=== PATIENT | male | born 1960 | race African-American/Black ===

== ENCOUNTER 2016-10-17 20:52 | Emergency (ER) | payer OTHER ==
[~2016-10-17 20:52] MED LIST: AMLO25TA PO; BUPR150T5 PO; DIAZ5TAB PO; DILT240C5 PO; KETO10TAB PO; LISI40TAB PO; METH-107 PO; OXYCO5TA PO; REGL10TA6 PO; SERT-141 PO; SIMV40TA2 PO; TRAZ50TA4 PO; VICODIN PO; [UNRECOGNIZED DRUG - CODE] PO
[2016-10-17] MEDS ORDERED: HYDROmorphone HCL 1 MG/ML SYRINGE (J1170) As Ordered ONE (22:04)
[2016-10-17 23:30] LABS: BASO # 0.1 K/mm3 (0.0-0.2); BASO % 1.2 % (0.0-1.0); EOS # 0.4 K/mm3 (0.0-0.50); EOS % 3.7 % (0.0-3.0); LARGE UNSTAINED CELL # 0.1 K/mm3 (0.0-0.4); LARGE UNSTAINED CELL % 1.2 % (0.0-4.0); LYMPH # 5.3 K/mm3 (1.5-4.5); LYMPH % 48.7 % (24.0-44.0); MEAN CORPUSCULAR HEMOGLOBIN 28.5 pg (27.0-33.0); MEAN CORPUSCULAR HGB CONC 33.1 g/dl (32.0-36.5); MEAN CORPUSCULAR VOLUME 86.1 fl (80.0-96.0); MONO # 0.6 K/mm3 (0.0-0.8); MONO % 6.1 % (0.0-5.0); NEUTROPHILS # 4.1 K/mm3 (1.8-7.7); NEUTROPHILS % 39.1 % (36.0-66.0); PLATELET COUNT, AUTOMATED 268 k/mm3 (150-450)
[2016-10-17 23:33] LABS: WHITE BLOOD COUNT 10.6 K/mm3 (4.0-10.0)
[2016-10-18 00:23] LABS: ANION GAP 6 MEQ/L (8-16); BLOOD UREA NITROGEN 15 MG/DL (7-18); CALCIUM LEVEL 8.4 MG/DL (8.5-10.1); CARBON DIOXIDE LEVEL 32 MEQ/L (21-32); CHLORIDE LEVEL 101 MEQ/L (98-107); CREATININE FOR GFR 1.28 MG/DL (0.70-1.30); GLOMERULAR FILTRATION RATE > 60.0 (>56); GLUCOSE, FASTING 103 MG/DL (70-105); POTASSIUM SERUM 3.4 MEQ/L (3.5-5.1); SODIUM LEVEL 139 MEQ/L (136-145)
[2016-10-18] MEDS ORDERED: ISOVUE-370 76% 100ML VIAL (Q9967) As Ordered ONE (00:59)
--- NOTE | 2016-10-18 02:40 | REPUSA ---
CLINICAL HISTORY: Suspected aortic dissection. TECHNIQUE: Multiple axial CT images were obtained through chest with IV contrast material. MPR mckeon l and sagittal sequences were obtained. COMMENTS: Limited evaluation of the pulmonary artery and its branches due to the phase of the contrast. Unremarkable aorta without evidence of aortic dissection. No aortic aneurysm is seen. There is no evidence of pleural or parenchymal mass. There are no pleural effusions. There is no evid ence of hilar or mediastinal lymphadenopathy. The heart and great vessels are within normal limits. Minimal basilar atelectatic pulmonary changes. The visualized portions of the liver are of uniform attenuation without mass or defect. There is no i ntra or extrahepatic biliary ductal dilatation. The spleen is unremarkable. The visualized pancreas i s of normal contour and attenuation characteristics. There is no evidence of adrenal mass. The visual ized portions of the kidneys present no acute abnormalities. Right renal simple cyst. The bony structures are free of lytic or blastic lesions. Multilevel degenerative changes are seen in volving the thoracic spine. Scattered calcifications are seen involving the aorta and visualized abdi r branches compatible with atherosclerosis. No evidence for abnormal enhancement. IMPRESSION: No evidence of acute thoracic pathology. Thank you for your kind referral of this patient.
[2016-10-18] MEDS ORDERED: HYDROmorphone HCL 1 MG/ML SYRINGE (J1170) As Ordered ONE (02:49)
[2016-10-18] MEDS ORDERED: NORCO 5/325MG TABLET (BULK) As Ordered ONE (03:05)
--- NOTE | 2016-10-18 03:22 | EDDOCDS ---
Nurse's Notes [facility] Name: Edin Machado Age: 56 yrs Sex: Male : 1960 Arrival Date: 10/17/2016 Time: 20:52 Bed I1 / M1 Private MD: Jordan Dos Santos Diagnosis: Low back pain;Pain in left shoulder Presentation: 10/17 21:01 Presenting complaint: Patient states: Is scheduled for back surgery on --is mcp having excruciating back pain today, is weak. Acute neurological deficits are not present. Mechanism of Injury: No Mechanism of Injury. Adult Sepsis Screening: The patient does not have new or worsening altered mentation. Patient's respiratory rate is less than 22. Systolic blood pressure is greater than 100. Patient has a qSOFA score of 0- Negative Sepsis Screen. Suicide/Homicide risk assessment- the patient denies having any suicidal and/or homicidal ideations and does not present with any other emotional, behavioral or mental health complaints. 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 Transition of care: patient was not received from another setting of care. 21:01 Acuity: NEVIN Level 4 [facility] 21:01 Method Of Arrival: Wheelchair [facility] Triage Assessment: 21:07 General: Appears uncomfortable, Behavior is cooperative. Pain: Location: back, left arm mcp and neck Pain currently is 10 out of 10 on a pain scale. HIV screening NA for this visit Offered previously. Neurological: No deficits noted. Respiratory: Airway is patent Respiratory effort is even, unlabored. Derm: Skin is pink, warm & dry. Musculoskeletal: Circulation, motion, and sensation intact. Historical: - Allergies: Motrinfever; - Home Meds: 1. Percocet 5-325 mg Oral tab 2 tabs every 4-6 hours (Last dose: 10/17/2016 17:00) 2. Valium 10 mg Oral tab 1 tab 3 times per day 3. prednisone 20 mg Oral tab 3 tab once daily 4. Cardizem 240 mg Oral 1 tab daily 5. lisinopril 40 mg Oral tab 1 tab once daily 6. lithium carbonate 300 mg Oral cap daily 7. simvastatin 40 mg Oral tab 1 tab once daily 8. Wellbutrin XL 300 mg Oral Tb24 1 tab once daily 9. Zoloft 100 mg Oral tab 1 tab once daily - PMHx: CAD; Chronic Back pain; Depression; Hypertension; infection to buttocks; Kidney stones; - PSHx: kidney stone removal X 3; Appendectomy; surgery for wound infection; - Social history: Smoking status: Patient states was never smoker of tobacco. No barriers to communication noted, The patient speaks fluent Telugu. - Family history: Not pertinent. - : The pt / caregiver states he / she is not on anticoagulants. Home medication list is obtained from the patient. - Exposure Risk Screening:: None identified. Screenin:27 Screening information is obtained from the patient. Fall risk: No risks identified. kmg1 uses a cane. Assistance ADL's: requires no assistance with activities of daily living. Abuse/DV Screen: The patient / caregiver reports he/she is: not in a situation that causes fear, pain or injury. Nutritional screening: No deficits noted. home support is adequate. 10/18 03:10 Advance Directives: There is no active DNR order. km Assessment: 10/17 23:25 General: Appears in no apparent distress, comfortable, Behavior is appropriate for age, kmg1 cooperative, quiet. Pain: Location: posterior cervical area, right trapezius, left supraclavicular area and left clavicle Pain currently is 8 out of 10 on a pain scale. Cardiovascular: Capillary refill < 3 seconds Rhythm is regular Chest pain is located in right anterior chest wall. Respiratory: Airway is patent Respiratory effort is even, unlabored, Respiratory pattern is regular, symmetrical, Breath sounds are clear bilaterally. Musculoskeletal: Denies pain, right shoulder. 10/18 00:45 General: Appears in no apparent distress, comfortable, Behavior is appropriate for age, kmg1 cooperative, pleasant, Resting quietly on stretcher. Pain: Pain currently is 6 out of 10 on a pain scale. 01:45 Reassessment: Patient appears in no apparent distress at this time. No change in kmg1 assessment. Awaiting CT results. 02:44 General: Appears in no apparent distress, comfortable, Behavior is appropriate for age, kmg1 Patient concerned about wait and was confused about why we CTd his chest. Explained exam and reasons for exam to patient who verbalized a better understanding . 03:10 Reassessment: Patient appears in no apparent distress at this time. Patient states kmg1 feeling better. Patient states symptoms have improved. Vital Signs: 10/17 20:54 BP 162 / 86; Pulse 80; Resp 18 S; Temp 95.9(O); Pulse Ox 98% on R/A; Weight 115.67 kg gr2 (R); Height 5 ft. 10 in. (177.80 cm) (R); Pain 9/10; 22:16 Pain 10/10; jf3 23:07 BP 172 / 105 (man/); Pulse 78; Resp 18; Temp 97.8(O); Pulse Ox 97% on R/A; Pain 8/10; cp1 10/18 00:26 BP 145 / 82 LA Supine (auto/reg); cln 03:04 BP 139 / 98 RA Sitting (auto/reg); Pulse 73 MON; Resp 22 S; Temp 98.3(T); Pulse Ox 96% cln on R/A; Pain 0/10; 10/17 20:54 Body Mass Index 36.59 (115.67 kg, 177.80 cm) gr2 Vitals: 10/17 20:54 Log In Time: October 17, 2016 at 20:54. gr2 ED Course: 20:54 Patient visited by Kevin Wilson. gr2 20:54 Jordan Dos Santos is Private Physician. gr2 20:54 Patient moved to Waiting gr2 20:55 Patient visited by Kevin Wilson. gr2 20:55 Patient moved to Pre RCE gr2 21:05 Triage Initiated mcp 21:07 Patient visited by Jammie Liao RN. mcp 21:39 Patient moved to Triage 3 jf3 21:41 [facility] ar2 21:41 Tommy Damian DO is Attending Physician. ar2 21:47 Patient visited by Steven Costa PA-C. ar2 22:06 Patient moved to I1 / M1 cz 22:52 Marcus Barry is Referral Physician. ar2 22:52 Jordan Dos Santos is Referral Physician. ar2 23:07 Patient visited by Precious Haney LPN. cp1 23:18 Patient visited by Estefany Lamb, MIRTA. cln 23:18 EKG done. (by ED staff). Reviewed by Steven Costa PA-C. cln 23:25 D-Dimer Quant Sent. kmg1 23:25 CIP Sent. kmg1 23:25 Troponin Sent. kmg1 23:25 CBC with Diff Sent. kmg1 23:25 MED Profile Sent. kmg1 23:27 Inserted saline lock: 18 gauge in right antecubital area. Labs drawn. (by ED staff). kmg1 Sent per order to lab. 23:28 Patient visited by Shantell Hassan RN. kmg1 23:53 [facility] Payment Agreement was scanned into [employer] and attached to record. ks16 10/18 00:26 Patient visited by Estefany Lamb PCA. cln 00:54 PHCP role handed off by Steven Costa PA-C cc10 00:54 Pavel Kent PA-C is PHCP. cc10 01:59 Patient visited by Precious Haney LPN. cp1 02:47 CT Chest With Contrast Returned. EDMS 02:58 Marcus Barry is Referral Physician. cc10 03:07 Patient visited by Estefany Lamb PCA. cln 03:10 The patient / caregiver is instructed regarding the plan of care and ED course. kmg1 03:10 Discontinued lock bleeding controlled, pressure dressing applied, No redness/swelling kmg1 at site. No procedures done that require assistance. Administered Medications: 10/17 22:10 Drug: Dilaudid - HYDROmorphone 1 mg [hydromorphone 1 mg/mL injection syringe (1 mL)] jf3 Route: IM; Site: right gluteus; 10/18 03:00 Drug: Dilaudid - HYDROmorphone 1 mg [hydromorphone 1 mg/mL injection syringe (1 mL)] kmg1 Route: IVP; Site: right antecubital; 03:12 Drug: HYDROcodone-acetaminophen 4 pack- 1 packets [hydrocodone 5 mg-acetaminophen 325 kmg1 mg tablet (1 tabs)] {Co-Signature: isabel (Temi Samuel RN).} Route: PO; Order Results: Lab Order: CBC with Diff; SPEC'M 10/17/16 23:22 Test: WHITE BLOOD COUNT; Value: 10.6; Range: 4.0-10.0; Abnormal: Above high normal; Units: K/mm3; Status: F Test: RED BLOOD COUNT; Value: 4.63; Range: 4.30-6.10; Units: M/mm3; Status: F Test: HEMOGLOBIN; Value: 13.2; Range: 14.0-18.0; Abnormal: Below low normal; Units: g/dl; Status: F Test: HEMATOCRIT; Value: 39.8; Range: 42.0-52.0; Abnormal: Below low normal; Units: %; Status: F Test: MEAN CORPUSCULAR VOLUME; Value: 86.1; Range: 80.0-96.0; Units: fl; Status: F Test: MEAN CORPUSCULAR HEMOGLOBIN; Value: 28.5; Range: 27.0-33.0; Units: pg; Status: F Test: MEAN CORPUSCULAR HGB CONC; Value: 33.1; Range: 32.0-36.5; Units: g/dl; Status: F Test: RED CELL DISTRIBUTION WIDTH; Value: 14.0; Range: 11.5-14.5; Units: %; Status: F Test: PLATELET COUNT, AUTOMATED; Value: 268; Range: 150-450; Units: k/mm3; Status: F Test: NEUTROPHILS %; Value: 39.1; Range: 36.0-66.0; Units: %; Status: F Test: LYMPH %; Value: 48.7; Range: 24.0-44.0; Abnormal: Above high normal; Units: %; Status: F Test: MONO %; Value: 6.1; Range: 0.0-5.0; Abnormal: Above high normal; Units: %; Status: F Test: EOS %; Value: 3.7; Range: 0.0-3.0; Abnormal: Above high normal; Units: %; Status: F Test: BASO %; Value: 1.2; Range: 0.0-1.0; Abnormal: Above high normal; Units: %; Status: F Test: LARGE UNSTAINED CELL %; Value: 1.2; Range: 0.0-4.0; Units: %; Status: F Test: NEUTROPHILS #; Value: 4.1; Range: 1.8-7.7; Units: K/mm3; Status: F Test: LYMPH #; Value: 5.3; Range: 1.5-4.5; Abnormal: Above high normal; Units: K/mm3; Status: F Test: MONO #; Value: 0.6; Range: 0.0-0.8; Units: K/mm3; Status: F Test: EOS #; Value: 0.4; Range: 0.0-0.50; Units: K/mm3; Status: F Test: BASO #; Value: 0.1; Range: 0.0-0.2; Units: K/mm3; Status: F Test: LARGE UNSTAINED CELL #; Value: 0.1; Range: 0.0-0.4; Units: K/mm3; Status: F Test Note: ; A Pathologist review of this differential can help in the evaluation of a differential diagnosis. Please order a Pathologist Review (PATHREVCOMP) if deemed necessary. Results are subject to change if a Pathologist Review is performed. Lab Order: MED Profile; SPEC'M 10/17/16 23:51 Test: GLUCOSE, FASTING; Value: 103; Range: 70-105; Units: MG/DL; Status: F Test: BLOOD UREA NITROGEN; Value: 15; Range: 7-18; Units: MG/DL; Status: F Test: CREATININE FOR GFR; Value: 1.28; Range: 0.70-1.30; Units: MG/DL; Status: F Test: GLOMERULAR FILTRATION RATE; Value: > 60.0; Range: >56; Status: F Test: SODIUM LEVEL; Value: 139; Range: 136-145; Units: MEQ/L; Status: F Test: POTASSIUM SERUM; Value: 3.4; Range: 3.5-5.1; Abnormal: Below low normal; Units: MEQ/L; Status: F Test: CHLORIDE LEVEL; Value: 101; Range: 98-107; Units: MEQ/L; Status: F Test: CARBON DIOXIDE LEVEL; Value: 32; Range: 21-32; Units: MEQ/L; Status: F Test: ANION GAP; Value: 6; Range: 8-16; Abnormal: Below low normal; Units: MEQ/L; Status: F Test: CALCIUM LEVEL; Value: 8.4; Range: 8.5-10.1; Abnormal: Below low normal; Units: MG/DL; Status: F Test Note: ; Units are mL/min/1.73 m2 Chronic Kidney Disease Staging per NKF: Stage I & II GFR >=60 Normal to Mildly Decreased Stage III GFR 30-59 Moderately Decreased Stage IV GFR 15-29 Severely Decreased Stage V GFR <15 Very Little GFR Left ESRD GFR <15 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 0.10-1.50 ng/ml Increased Risk for Adverse Clinical Events. Evaluation of additional criterion and/or repeat testing in 2-6 hours is suggested to rule out myocardial damage. >= 1.50 ng/ml Indicative of Myocardial Injury. Lab Order: CIP; SPEC'M 10/17/16 23:51 Test: CPK CREATINE PHOSPHOKINASE; Value: 171; Range: 39-308; Units: U/L; Status: F Test: CK-MB VALUE MASS; Value: 1.0; Range: 0.0-3.6; Units: NG/ML; Status: F Test: MB/CK RELATIVE INDEX; Value: 0.58; Range: < OR =4; Status: F Test Note: ; DIAGNOSIS CRITERIA MMB ng/ml Relative Index (RI) NON-AMI < or = 5 N/A CRAWFORD ZONE > 5 < or = 4 AMI > 5 > 4 Lab Order: D-Dimer Quant; SPEC'M 10/17/16 23:51 Test: D-DIMER QUANT; Value: < 270.0; Range: <500; Units: ng/ml; Status: F Radiology Order: CT Chest With Contrast Test: CT Chest With Contrast REASON FOR EXAMINATION: r/o dissection; ; CLINICAL HISTORY: Suspected aortic dissection.; TECHNIQUE: Multiple axial CT images were obtained through chest with IV contrast material. MPR mckeon; l and sagittal sequences were obtained.; COMMENTS:; Limited evaluation of the pulmonary artery and its branches due to the phase of the contrast.; Unremarkable aorta without evidence of aortic dissection.; No aortic aneurysm is seen.; There is no evidence of pleural or parenchymal mass. There are no pleural effusions. There is no evid; ence of hilar or mediastinal lymphadenopathy. The heart and great vessels are within normal limits.; Minimal basilar atelectatic pulmonary changes.; The visualized portions of the liver are of uniform attenuation without mass or defect. There is no i; ntra or extrahepatic biliary ductal dilatation. The spleen is unremarkable. The visualized pancreas i; s of normal contour and attenuation characteristics. There is no evidence of adrenal mass. The visual; ized portions of the kidneys present no acute abnormalities.; Right renal simple cyst.; The bony structures are free of lytic or blastic lesions. Multilevel degenerative changes are seen in; volving the thoracic spine. Scattered calcifications are seen involving the aorta and visualized abdi; r branches compatible with atherosclerosis.; No evidence for abnormal enhancement.; IMPRESSION:; No evidence of acute thoracic pathology.; Thank you for your kind referral of this patient.; ; ; Outcome: 10/17 22:53 Discharge ordered by Provider. ar2 10/18 02:58 Discharge ordered by Provider. cc10 03:10 Discharge Assessment: Patient awake, alert and oriented x 3. No cognitive and/or kmg1 functional deficits noted. Patient verbalized understanding of disposition instructions. Patient awake and alert. patient administered narcotics - yes. Pt provided with safe discharge. The following High Risk Discharge criteria are identified: None. Discharged to home ambulatory, with family. Condition: improved. Discharge instructions given to patient, Instructed on discharge instructions, follow up and referral plans. medication usage, Demonstrated understanding of instructions, medications, Pt was receptive of discharge instructions/ teaching. Prescriptions given X 1. CT Study completed. Property sent home with patient. 03:22 Patient left the ED. [facility] Signatures: Dispatcher [employer] EDMS Shantell Hassan RN RN kmg1 Jammie Liao RN RN mcp Zecher, Calvin, RN RN cz Robertshaw, Aaron, PA-C PA-C ar2 Precious Haney LPN LPN cp1 Kevin Wilson gr2 Paevl Kent PA-C PA-C cc10 James Mendez RN RN jf3 Aure Edwards, Reg Reg ks16 Estefany Lamb, VICE PRESIDENT CORPORATE COMMUNICATIONS VICE PRESIDENT CORPORATE COMMUNICATIONS cln Temi hall MTDD
--- NOTE | 2016-10-18 03:22 | EDDOCDS ---
Physician Documentation [facility] Name: Edin Machado Age: 56 yrs Sex: Male : 1960 Arrival Date: 10/17/2016 Time: 20:52 Bed I1 / M1 Private MD: Jordan Dos Santos Disposition: 10/18/16 02:58 Discharged to Home/Self Care. Impression: Low back pain, Pain in left shoulder. - Condition is Stable. - Discharge Instructions: Chronic Back Pain, Shoulder Pain. - Prescriptions for Hydrocodone- Acetaminophen 7.5-325 mg Oral Tablet - take 1 tablet by ORAL route every 6 hours As needed MDD: 4 tabs; 12 tablet. - Medication Reconciliation, Local Pharmacy Hours form. - Follow up: Emergency Department; When: As needed. Follow up: Marcus Barry; When: Call to arrange an appointment; Reason: Wound/Symptom Recheck, Recheck today's complaints, Continuance of care. - Problem is an ongoing problem. - Symptoms have improved. Historical: - Allergies: Motrinfever; - Home Meds: 1. Percocet 5-325 mg Oral tab 2 tabs every 4-6 hours (Last dose: 10/17/2016 17:00) 2. Valium 10 mg Oral tab 1 tab 3 times per day 3. prednisone 20 mg Oral tab 3 tab once daily 4. Cardizem 240 mg Oral 1 tab daily 5. lisinopril 40 mg Oral tab 1 tab once daily 6. lithium carbonate 300 mg Oral cap daily 7. simvastatin 40 mg Oral tab 1 tab once daily 8. Wellbutrin XL 300 mg Oral Tb24 1 tab once daily 9. Zoloft 100 mg Oral tab 1 tab once daily - PMHx: CAD; Chronic Back pain; Depression; Hypertension; infection to buttocks; Kidney stones; - PSHx: kidney stone removal X 3; Appendectomy; surgery for wound infection; - Social history: Smoking status: Patient states was never smoker of tobacco. No barriers to communication noted, The patient speaks fluent Croatian. - Family history: Not pertinent. - : The pt / caregiver states he / she is not on anticoagulants. Home medication list is obtained from the patient. - Exposure Risk Screening:: None identified. Vital Signs: 10/17 20:54 BP 162 / 86; Pulse 80; Resp 18 S; Temp 95.9(O); Pulse Ox 98% on R/A; Weight 115.67 kg / gr2 255.01 lbs (R); Height 5 ft. 10 in. (177.80 cm) (R); Pain 9/10; 22:16 Pain 10/10; jf3 23:07 BP 172 / 105 (man/); Pulse 78; Resp 18; Temp 97.8(O); Pulse Ox 97% on R/A; Pain 8/10; cp1 10/18 00:26 BP 145 / 82 LA Supine (auto/reg); cln 03:04 BP 139 / 98 RA Sitting (auto/reg); Pulse 73 MON; Resp 22 S; Temp 98.3(T); Pulse Ox 96% cln on R/A; Pain 0/10; 10/17 20:54 Body Mass Index 36.59 (115.67 kg, 177.80 cm) gr2 MDM: 10/17 22:01 Undress patient appropriately for examination ordered. ar2 22:01 Dilaudid - HYDROmorphone 1 mg IM once ordered. ar2 23:07 IV Saline Lock ordered. ar2 23:08 ECG WITH READING ER PHYS+CARDIAG ordered. EDMS 23:08 CBC with Diff Ordered. EDMS 23:08 MED Profile Ordered. EDMS 23:08 Troponin Ordered. EDMS 23:08 CIP Ordered. EDMS 23:08 D-Dimer Quant Ordered. EDMS 23:53 Financial registration complete. ks16 23:53 [facility] Payment Agreement was scanned into [employer] and attached to record. [facility] 10/18 00:24 CBC with Diff Reviewed. ar2 00:24 MED Profile Reviewed. ar2 00:24 Troponin Reviewed. ar2 00:24 D-Dimer Quant Reviewed. ar2 00:27 CT Chest With Contrast Ordered. EDMS 02:46 Dilaudid - HYDROmorphone 1 mg IVP once ordered. cc10 02:57 MED Profile Reviewed. cc10 02:57 Troponin Reviewed. cc10 02:57 CIP Reviewed. cc10 02:57 CT Chest With Contrast Reviewed. cc10 02:58 HYDROcodone-acetaminophen 4 pack- 5 mg-325 mg 1 packets PO Per package directions; cc10 Dispense with patient. 1 po q4h prn for pain ordered. Administered Medications: 10/17 22:10 Drug: Dilaudid - HYDROmorphone 1 mg [hydromorphone 1 mg/mL injection syringe (1 mL)] jf3 Route: IM; Site: right gluteus; 10/18 03:00 Drug: Dilaudid - HYDROmorphone 1 mg [hydromorphone 1 mg/mL injection syringe (1 mL)] kmg1 Route: IVP; Site: right antecubital; 03:12 Drug: HYDROcodone-acetaminophen 4 pack- 1 packets [hydrocodone 5 mg-acetaminophen 325 kmg1 mg tablet (1 tabs)] {Co-Signature: isabel (Temi Samuel RN).} Route: PO; Signatures: Dispatcher [employer] EDShantell Morris RN RN kmg1 Jammie Liao RN RN mcp Steven Costa PA-C PA-C ar2 Pavel Kent PA-C PAMeet cc10 Aure Edwards, Reg Reg ks16 James Mendez RN jf3 Temi hall The chart was reviewed and I authenticate all verbal orders and agree with the evaluation and treatment provided.Attachments: 10/17 23:53 [facility] Payment Agreement ks16 MTDD
--- NOTE | 2016-10-18 09:21 | ECGEPIP ---
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 Order Number: [id number] Reading MD: Дмитрий Jin Measurements Intervals [place] Rate: 78 P: 38 VA: 161 QRS: -4 QRSD: 94 T: 45 QT: 380 QTc: 435 Interpretive Statements SINUS RHYTHM NONSPECIFIC T-WAVE ABNORMALITY SIMILAR TO 10/07/16 Electronically Signed On 10-18-2016 9:20:29 EST by Дмитрий Jin
--- NOTE | 2016-10-20 12:26 | EDDOCDS ---
Physician Documentation [facility] Name: Edin Machado Age: 56 yrs Sex: Male : 1960 Arrival Date: 10/17/2016 Time: 20:52 Bed I1 / M1 Private MD: Jordan Dos Santos Disposition: 10/18/16 02:58 Discharged to Home/Self Care. Impression: Low back pain, Pain in left shoulder. - Condition is Stable. - Discharge Instructions: Chronic Back Pain, Shoulder Pain. - Prescriptions for Hydrocodone- Acetaminophen 7.5-325 mg Oral Tablet - take 1 tablet by ORAL route every 6 hours As needed MDD: 4 tabs; 12 tablet. - Medication Reconciliation, Local Pharmacy Hours form. - Follow up: Emergency Department; When: As needed. Follow up: Marcus Barry; When: Call to arrange an appointment; Reason: Wound/Symptom Recheck, Recheck today's complaints, Continuance of care. - Problem is an ongoing problem. - Symptoms have improved. Historical: - Allergies: Motrinfever; - Home Meds: 1. Percocet 5-325 mg Oral tab 2 tabs every 4-6 hours (Last dose: 10/17/2016 17:00) 2. Valium 10 mg Oral tab 1 tab 3 times per day 3. prednisone 20 mg Oral tab 3 tab once daily 4. Cardizem 240 mg Oral 1 tab daily 5. lisinopril 40 mg Oral tab 1 tab once daily 6. lithium carbonate 300 mg Oral cap daily 7. simvastatin 40 mg Oral tab 1 tab once daily 8. Wellbutrin XL 300 mg Oral Tb24 1 tab once daily 9. Zoloft 100 mg Oral tab 1 tab once daily - PMHx: CAD; Chronic Back pain; Depression; Hypertension; infection to buttocks; Kidney stones; - PSHx: kidney stone removal X 3; Appendectomy; surgery for wound infection; - Social history: Smoking status: Patient states was never smoker of tobacco. No barriers to communication noted, The patient speaks fluent [place] Citizen. - Family history: Not pertinent. - : The pt / caregiver states he / she is not on anticoagulants. Home medication list is obtained from the patient. - Exposure Risk Screening:: None identified. Vital Signs: 10/17 20:54 BP 162 / 86; Pulse 80; Resp 18 S; Temp 95.9(O); Pulse Ox 98% on R/A; Weight 115.67 kg / gr2 255.01 lbs (R); Height 5 ft. 10 in. (177.80 cm) (R); Pain 9/10; 22:16 Pain 10/10; jf3 23:07 BP 172 / 105 (man/); Pulse 78; Resp 18; Temp 97.8(O); Pulse Ox 97% on R/A; Pain 8/10; cp1 10/18 00:26 BP 145 / 82 LA Supine (auto/reg); cln 03:04 BP 139 / 98 RA Sitting (auto/reg); Pulse 73 MON; Resp 22 S; Temp 98.3(T); Pulse Ox 96% cln on R/A; Pain 0/10; 10/17 20:54 Body Mass Index 36.59 (115.67 kg, 177.80 cm) gr2 MDM: 10/17 22:01 Undress patient appropriately for examination ordered. ar2 22:01 Dilaudid - HYDROmorphone 1 mg IM once ordered. ar2 23:07 IV Saline Lock ordered. ar2 23:08 ECG WITH READING ER PHYS+CARDIAG ordered. EDMS 23:08 CBC with Diff Ordered. EDMS 23:08 MED Profile Ordered. EDMS 23:08 Troponin Ordered. EDMS 23:08 CIP Ordered. EDMS 23:08 D-Dimer Quant Ordered. EDMS 23:53 Financial registration complete. [email or web address] 23:53 [facility] Payment Agreement was scanned into [employer] and attached to record. [email or web address] 10/18 00:24 CBC with Diff Reviewed. ar2 00:24 MED Profile Reviewed. ar2 00:24 Troponin Reviewed. ar2 00:24 D-Dimer Quant Reviewed. ar2 00:27 CT Chest With Contrast Ordered. EDMS 02:46 Dilaudid - HYDROmorphone 1 mg IVP once ordered. cc10 02:57 MED Profile Reviewed. cc10 02:57 Troponin Reviewed. cc10 02:57 CIP Reviewed. cc10 02:57 CT Chest With Contrast Reviewed. cc10 02:58 HYDROcodone-acetaminophen 4 pack- 5 mg-325 mg 1 packets PO Per package directions; cc10 Dispense with patient. 1 po q4h prn for pain ordered. 08:04 T-Sheet-- Draft Copy was scanned into [employer] and attached to record. se 11:24 ECG/EKG was scanned into [employer] and attached to record. gb Administered Medications: 10/17 22:10 Drug: Dilaudid - HYDROmorphone 1 mg [hydromorphone 1 mg/mL injection syringe (1 mL)] jf3 Route: IM; Site: right gluteus; 10/18 03:00 Drug: Dilaudid - HYDROmorphone 1 mg [hydromorphone 1 mg/mL injection syringe (1 mL)] kmg1 Route: IVP; Site: right antecubital; 03:12 Drug: HYDROcodone-acetaminophen 4 pack- 1 packets [hydrocodone 5 mg-acetaminophen 325 kmg1 mg tablet (1 tabs)] {Co-Signature: isabel (Temi Samuel RN).} Route: PO; Signatures: Dispatcher [employer] EDMS Shantell Hassan RN RN kmg1 Jammie Liao RN RN [facility] Dolores Romo, Reg Reg gb Steven Costa PA-C PAYvonneC ar2 Pavel Kent PA-C PA-C cc10 Aure Edwards, Reg Reg ks16 Blanca Link Justin RN jf3 Temi hall The chart was reviewed and I authenticate all verbal orders and agree with the evaluation and treatment provided.Attachments: 10/17 23:53 [facility] Payment Agreement [email or web address] 10/18 08:04 T-Sheet-- Draft Copy [facility] 11:24 ECG/EKG Chart Complete MTDD
--- NOTE | 2016-10-20 12:26 | EDDOCDS ---
Physician Documentation [facility] Name: Edin Machado Age: 56 yrs Sex: Male : 1960 Arrival Date: 10/17/2016 Time: 20:52 Bed I1 / M1 Private MD: Jordan Dos Santos Disposition: 10/18/16 02:58 Discharged to Home/Self Care. Impression: Low back pain, Pain in left shoulder. - Condition is Stable. - Discharge Instructions: Chronic Back Pain, Shoulder Pain. - Prescriptions for Hydrocodone- Acetaminophen 7.5-325 mg Oral Tablet - take 1 tablet by ORAL route every 6 hours As needed MDD: 4 tabs; 12 tablet. - Medication Reconciliation, Local Pharmacy Hours form. - Follow up: Emergency Department; When: As needed. Follow up: Marcus Barry; When: Call to arrange an appointment; Reason: Wound/Symptom Recheck, Recheck today's complaints, Continuance of care. - Problem is an ongoing problem. - Symptoms have improved. Historical: - Allergies: Motrinfever; - Home Meds: 1. Percocet 5-325 mg Oral tab 2 tabs every 4-6 hours (Last dose: 10/17/2016 17:00) 2. Valium 10 mg Oral tab 1 tab 3 times per day 3. prednisone 20 mg Oral tab 3 tab once daily 4. Cardizem 240 mg Oral 1 tab daily 5. lisinopril 40 mg Oral tab 1 tab once daily 6. lithium carbonate 300 mg Oral cap daily 7. simvastatin 40 mg Oral tab 1 tab once daily 8. Wellbutrin XL 300 mg Oral Tb24 1 tab once daily 9. Zoloft 100 mg Oral tab 1 tab once daily - PMHx: CAD; Chronic Back pain; Depression; Hypertension; infection to buttocks; Kidney stones; - PSHx: kidney stone removal X 3; Appendectomy; surgery for wound infection; - Social history: Smoking status: Patient states was never smoker of tobacco. No barriers to communication noted, The patient speaks fluent [place]. - Family history: Not pertinent. - : The pt / caregiver states he / she is not on anticoagulants. Home medication list is obtained from the patient. - Exposure Risk Screening:: None identified. Vital Signs: 10/17 20:54 BP 162 / 86; Pulse 80; Resp 18 S; Temp 95.9(O); Pulse Ox 98% on R/A; Weight 115.67 kg / gr2 255.01 lbs (R); Height 5 ft. 10 in. (177.80 cm) (R); Pain 9/10; 22:16 Pain 10/10; jf3 23:07 BP 172 / 105 (man/); Pulse 78; Resp 18; Temp 97.8(O); Pulse Ox 97% on R/A; Pain 8/10; cp1 10/18 00:26 BP 145 / 82 LA Supine (auto/reg); cln 03:04 BP 139 / 98 RA Sitting (auto/reg); Pulse 73 MON; Resp 22 S; Temp 98.3(T); Pulse Ox 96% cln on R/A; Pain 0/10; 10/17 20:54 Body Mass Index 36.59 (115.67 kg, 177.80 cm) gr2 MDM: 10/17 22:01 Undress patient appropriately for examination ordered. ar2 22:01 Dilaudid - HYDROmorphone 1 mg IM once ordered. ar2 23:07 IV Saline Lock ordered. ar2 23:08 ECG WITH READING ER PHYS+CARDIAG ordered. EDMS 23:08 CBC with Diff Ordered. EDMS 23:08 MED Profile Ordered. EDMS 23:08 Troponin Ordered. EDMS 23:08 CIP Ordered. EDMS 23:08 D-Dimer Quant Ordered. EDMS 23:53 Financial registration complete. [email or web address] 23:53 [facility] Payment Agreement was scanned into [employer] and attached to record. [email or web address] 10/18 00:24 CBC with Diff Reviewed. ar2 00:24 MED Profile Reviewed. ar2 00:24 Troponin Reviewed. ar2 00:24 D-Dimer Quant Reviewed. ar2 00:27 CT Chest With Contrast Ordered. EDMS 02:46 Dilaudid - HYDROmorphone 1 mg IVP once ordered. cc10 02:57 MED Profile Reviewed. cc10 02:57 Troponin Reviewed. cc10 02:57 CIP Reviewed. cc10 02:57 CT Chest With Contrast Reviewed. cc10 02:58 HYDROcodone-acetaminophen 4 pack- 5 mg-325 mg 1 packets PO Per package directions; cc10 Dispense with patient. 1 po q4h prn for pain ordered. 08:04 T-Sheet-- Draft Copy was scanned into [employer] and attached to record. se 11:24 ECG/EKG was scanned into [employer] and attached to record. gb Administered Medications: 10/17 22:10 Drug: Dilaudid - HYDROmorphone 1 mg [hydromorphone 1 mg/mL injection syringe (1 mL)] jf3 Route: IM; Site: right gluteus; 10/18 03:00 Drug: Dilaudid - HYDROmorphone 1 mg [hydromorphone 1 mg/mL injection syringe (1 mL)] kmg1 Route: IVP; Site: right antecubital; 03:12 Drug: HYDROcodone-acetaminophen 4 pack- 1 packets [hydrocodone 5 mg-acetaminophen 325 kmg1 mg tablet (1 tabs)] {Co-Signature: isabel (Temi Samuel RN).} Route: PO; Signatures: Dispatcher [employer] EDMS Shantell Hassan RN RN kmg1 Jammie Liao RN RN [facility] Dolores Romo, Reg Reg gb Steven Costa PA-C PAYvonneC ar2 Pavel Kent PA-C PA-C cc10 Aure Edwards, Reg Reg ks16 Blanca Link Justin RN jf3 Temi hall The chart was reviewed and I authenticate all verbal orders and agree with the evaluation and treatment provided.Attachments: 10/17 23:53 [facility] Payment Agreement [email or web address] 10/18 08:04 T-Sheet-- Draft Copy [facility] 11:24 ECG/EKG Chart Complete MTDD
--- NOTE | 2016-10-20 12:26 | EDDOCDS ---
Nurse's Notes [facility] Name: Paris Rice Age: 56 yrs Sex: Male : 1960 Arrival Date: 10/17/2016 Time: 20:52 Bed I1 / M1 Private MD: Jordan Dos Santos Diagnosis: Low back pain;Pain in left shoulder Presentation: 10/17 21:01 Presenting complaint: Patient states: Is scheduled for back surgery on --is mcp having excruciating back pain today, is weak. Acute neurological deficits are not present. Mechanism of Injury: No Mechanism of Injury. Adult Sepsis Screening: The patient does not have new or worsening altered mentation. Patient's respiratory rate is less than 22. Systolic blood pressure is greater than 100. Patient has a qSOFA score of 0- Negative Sepsis Screen. Suicide/Homicide risk assessment- the patient denies having any suicidal and/or homicidal ideations and does not present with any other emotional, behavioral or mental health complaints. Status: Patient is not a creative services writer or dependent. Transition of care: patient was not received from another setting of care. 21:01 Acuity: NEVIN Level 4 [facility] 21:01 Method Of Arrival: Wheelchair [facility] Triage Assessment: 21:07 General: Appears uncomfortable, Behavior is cooperative. Pain: Location: back, left arm mcp and neck Pain currently is 10 out of 10 on a pain scale. HIV screening NA for this visit Offered previously. Neurological: No deficits noted. Respiratory: Airway is patent Respiratory effort is even, unlabored. Derm: Skin is pink, warm & dry. Musculoskeletal: Circulation, motion, and sensation intact. Historical: - Allergies: Motrinfever; - Home Meds: 1. Percocet 5-325 mg Oral tab 2 tabs every 4-6 hours (Last dose: 10/17/2016 17:00) 2. Valium 10 mg Oral tab 1 tab 3 times per day 3. prednisone 20 mg Oral tab 3 tab once daily 4. Cardizem 240 mg Oral 1 tab daily 5. lisinopril 40 mg Oral tab 1 tab once daily 6. lithium carbonate 300 mg Oral cap daily 7. simvastatin 40 mg Oral tab 1 tab once daily 8. Wellbutrin XL 300 mg Oral Tb24 1 tab once daily 9. Zoloft 100 mg Oral tab 1 tab once daily - PMHx: CAD; Chronic Back pain; Depression; Hypertension; infection to buttocks; Kidney stones; - PSHx: kidney stone removal X 3; Appendectomy; surgery for wound infection; - Social history: Smoking status: Patient states was never smoker of tobacco. No barriers to communication noted, The patient speaks fluent Vietnamese. - Family history: Not pertinent. - : The pt / caregiver states he / she is not on anticoagulants. Home medication list is obtained from the patient. - Exposure Risk Screening:: None identified. Screenin:27 Screening information is obtained from the patient. Fall risk: No risks identified. kmg1 uses a cane. Assistance ADL's: requires no assistance with activities of daily living. Abuse/DV Screen: The patient / caregiver reports he/she is: not in a situation that causes fear, pain or injury. Nutritional screening: No deficits noted. home support is adequate. 10/18 03:10 Advance Directives: There is no active DNR order. km Assessment: 10/17 23:25 General: Appears in no apparent distress, comfortable, Behavior is appropriate for age, kmg1 cooperative, quiet. Pain: Location: posterior cervical area, right trapezius, left supraclavicular area and left clavicle Pain currently is 8 out of 10 on a pain scale. Cardiovascular: Capillary refill < 3 seconds Rhythm is regular Chest pain is located in right anterior chest wall. Respiratory: Airway is patent Respiratory effort is even, unlabored, Respiratory pattern is regular, symmetrical, Breath sounds are clear bilaterally. Musculoskeletal: Denies pain, right shoulder. 10/18 00:45 General: Appears in no apparent distress, comfortable, Behavior is appropriate for age, kmg1 cooperative, pleasant, Resting quietly on stretcher. Pain: Pain currently is 6 out of 10 on a pain scale. 01:45 Reassessment: Patient appears in no apparent distress at this time. No change in kmg1 assessment. Awaiting CT results. 02:44 General: Appears in no apparent distress, comfortable, Behavior is appropriate for age, kmg1 Patient concerned about wait and was confused about why we CTd his chest. Explained exam and reasons for exam to patient who verbalized a better understanding . 03:10 Reassessment: Patient appears in no apparent distress at this time. Patient states kmg1 feeling better. Patient states symptoms have improved. Vital Signs: 10/17 20:54 BP 162 / 86; Pulse 80; Resp 18 S; Temp 95.9(O); Pulse Ox 98% on R/A; Weight 115.67 kg gr2 (R); Height 5 ft. 10 in. (177.80 cm) (R); Pain 9/10; 22:16 Pain 10/10; jf3 23:07 BP 172 / 105 (man/); Pulse 78; Resp 18; Temp 97.8(O); Pulse Ox 97% on R/A; Pain 8/10; cp1 10/18 00:26 BP 145 / 82 LA Supine (auto/reg); cln 03:04 BP 139 / 98 RA Sitting (auto/reg); Pulse 73 MON; Resp 22 S; Temp 98.3(T); Pulse Ox 96% cln on R/A; Pain 0/10; 10/17 20:54 Body Mass Index 36.59 (115.67 kg, 177.80 cm) gr2 Vitals: 10/17 20:54 Log In Time: October 17, 2016 at 20:54. gr2 ED Course: 20:54 Patient visited by Kevin Wilson. gr2 20:54 Jordan Dos Santos is Private Physician. gr2 20:54 Patient moved to Waiting gr2 20:55 Patient visited by Kevin Wilson. gr2 20:55 Patient moved to Pre RCE gr2 21:05 Triage Initiated mcp 21:07 Patient visited by Jammie Liao RN. mcp 21:39 Patient moved to Triage 3 jf3 21:41 [facility]onie Costa [facility]C [facility]. ar2 21:41 Tommy Damian DO is Attending Physician. ar2 21:47 Patient visited by Melonie Costa PA-C. ar2 22:06 Patient moved to I1 / M1 cz 22:52 Marcus Barry is Referral Physician. ar2 22:52 Jordan Dos Santos is Referral Physician. ar2 23:07 Patient visited by Precious Haney LPN. cp1 23:18 Patient visited by Estefany Lamb, MIRTA. cln 23:18 EKG done. (by ED staff). Reviewed by Melonie Costa PA-C. cln 23:25 D-Dimer Quant Sent. kmg1 23:25 CIP Sent. kmg1 23:25 Troponin Sent. kmg1 23:25 CBC with Diff Sent. kmg1 23:25 MED Profile Sent. kmg1 23:27 Inserted saline lock: 18 gauge in right antecubital area. Labs drawn. (by ED staff). kmg1 Sent per order to lab. 23:28 Patient visited by Shantell Hassan RN. kmg1 23:53 [facility] Payment Agreement was scanned into [employer] and attached to record. ks16 10/18 00:26 Patient visited by Estefany Lamb PCA. cln 00:54 PHCP role handed off by Melonie Costa PA-C cc10 00:54 Pavel Kent PA-C is PHCP. cc10 01:59 Patient visited by Precious Haney LPN. cp1 02:47 CT Chest With Contrast Returned. EDMS 02:58 Marcus Barry is Referral Physician. cc10 03:07 Patient visited by Estefany Lamb PCA. cln 03:10 The patient / caregiver is instructed regarding the plan of care and ED course. kmg1 03:10 Discontinued lock bleeding controlled, pressure dressing applied, No redness/swelling kmg1 at site. No procedures done that require assistance. 08:04 T-Sheet-- Draft Copy was scanned into [employer] and attached to record. se 09:43 EKG-ADULT Returned. EDMS 11:24 ECG/EKG was scanned into [employer] and attached to record. gb Administered Medications: 10/17 22:10 Drug: Dilaudid - HYDROmorphone 1 mg [hydromorphone 1 mg/mL injection syringe (1 mL)] jf3 Route: IM; Site: right gluteus; 10/18 03:00 Drug: Dilaudid - HYDROmorphone 1 mg [hydromorphone 1 mg/mL injection syringe (1 mL)] kmg1 Route: IVP; Site: right antecubital; 03:12 Drug: HYDROcodone-acetaminophen 4 pack- 1 packets [hydrocodone 5 mg-acetaminophen 325 kmg1 mg tablet (1 tabs)] {Co-Signature: isabel (Temi Samuel RN).} Route: PO; Order Results: Lab Order: CBC with Diff; SPEC'M 10/17/16 23:22 Test: WHITE BLOOD COUNT; Value: 10.6; Range: 4.0-10.0; Abnormal: Above high normal; Units: K/mm3; Status: F Test: RED BLOOD COUNT; Value: 4.63; Range: 4.30-6.10; Units: M/mm3; Status: F Test: HEMOGLOBIN; Value: 13.2; Range: 14.0-18.0; Abnormal: Below low normal; Units: g/dl; Status: F Test: HEMATOCRIT; Value: 39.8; Range: 42.0-52.0; Abnormal: Below low normal; Units: %; Status: F Test: MEAN CORPUSCULAR VOLUME; Value: 86.1; Range: 80.0-96.0; Units: fl; Status: F Test: MEAN CORPUSCULAR HEMOGLOBIN; Value: 28.5; Range: 27.0-33.0; Units: pg; Status: F Test: MEAN CORPUSCULAR HGB CONC; Value: 33.1; Range: 32.0-36.5; Units: g/dl; Status: F Test: RED CELL DISTRIBUTION WIDTH; Value: 14.0; Range: 11.5-14.5; Units: %; Status: F Test: PLATELET COUNT, AUTOMATED; Value: 268; Range: 150-450; Units: k/mm3; Status: F Test: NEUTROPHILS %; Value: 39.1; Range: 36.0-66.0; Units: %; Status: F Test: LYMPH %; Value: 48.7; Range: 24.0-44.0; Abnormal: Above high normal; Units: %; Status: F Test: MONO %; Value: 6.1; Range: 0.0-5.0; Abnormal: Above high normal; Units: %; Status: F Test: EOS %; Value: 3.7; Range: 0.0-3.0; Abnormal: Above high normal; Units: %; Status: F Test: BASO %; Value: 1.2; Range: 0.0-1.0; Abnormal: Above high normal; Units: %; Status: F Test: LARGE UNSTAINED CELL %; Value: 1.2; Range: 0.0-4.0; Units: %; Status: F Test: NEUTROPHILS #; Value: 4.1; Range: 1.8-7.7; Units: K/mm3; Status: F Test: LYMPH #; Value: 5.3; Range: 1.5-4.5; Abnormal: Above high normal; Units: K/mm3; Status: F Test: MONO #; Value: 0.6; Range: 0.0-0.8; Units: K/mm3; Status: F Test: EOS #; Value: 0.4; Range: 0.0-0.50; Units: K/mm3; Status: F Test: BASO #; Value: 0.1; Range: 0.0-0.2; Units: K/mm3; Status: F Test: LARGE UNSTAINED CELL #; Value: 0.1; Range: 0.0-0.4; Units: K/mm3; Status: F Test Note: ; A Pathologist review of this differential can help in the evaluation of a differential diagnosis. Please order a Pathologist Review (PATHREVCOMP) if deemed necessary. Results are subject to change if a Pathologist Review is performed. Lab Order: MED Profile; SPEC'M 10/17/16 23:51 Test: GLUCOSE, FASTING; Value: 103; Range: 70-105; Units: MG/DL; Status: F Test: BLOOD UREA NITROGEN; Value: 15; Range: 7-18; Units: MG/DL; Status: F Test: CREATININE FOR GFR; Value: 1.28; Range: 0.70-1.30; Units: MG/DL; Status: F Test: GLOMERULAR FILTRATION RATE; Value: > 60.0; Range: >56; Status: F Test: SODIUM LEVEL; Value: 139; Range: 136-145; Units: MEQ/L; Status: F Test: POTASSIUM SERUM; Value: 3.4; Range: 3.5-5.1; Abnormal: Below low normal; Units: MEQ/L; Status: F Test: CHLORIDE LEVEL; Value: 101; Range: 98-107; Units: MEQ/L; Status: F Test: CARBON DIOXIDE LEVEL; Value: 32; Range: 21-32; Units: MEQ/L; Status: F Test: ANION GAP; Value: 6; Range: 8-16; Abnormal: Below low normal; Units: MEQ/L; Status: F Test: CALCIUM LEVEL; Value: 8.4; Range: 8.5-10.1; Abnormal: Below low normal; Units: MG/DL; Status: F Test Note: ; Units are mL/min/1.73 m2 Chronic Kidney Disease Staging per NKF: Stage I & II GFR >=60 Normal to Mildly Decreased Stage III GFR 30-59 Moderately Decreased Stage IV GFR 15-29 Severely Decreased Stage V GFR <15 Very Little GFR Left ESRD GFR <15 on LGSW Lab Order: Troponin; SPEC'M 10/17/16 23:51 Test: TROPONIN I; Value: < 0.02; Range: < 0.10; Units: NG/ML; Status: F Test Note: ; Troponin I Reference Interval for [employer] LOCI: 99th Percentile= 0.00-0.045 ng/ml Risk Stratification: <= 0.10 ng/ml Decreased Risk for Adverse Clinical Events. 0.10-1.50 ng/ml Increased Risk for Adverse Clinical Events. Evaluation of additional criterion and/or repeat testing in 2-6 hours is suggested to rule out myocardial damage. >= 1.50 ng/ml Indicative of Myocardial Injury. Lab Order: CIP; SPEC'M 10/17/16 23:51 Test: CPK CREATINE PHOSPHOKINASE; Value: 171; Range: 39-308; Units: U/L; Status: F Test: CK-MB VALUE MASS; Value: 1.0; Range: 0.0-3.6; Units: NG/ML; Status: F Test: MB/CK RELATIVE INDEX; Value: 0.58; Range: < OR =4; Status: F Test Note: ; DIAGNOSIS CRITERIA MMB ng/ml Relative Index (RI) NON-AMI < or = 5 N/A CRAWFORD ZONE > 5 < or = 4 AMI > 5 > 4 Lab Order: D-Dimer Quant; SPEC'M 10/17/16 23:51 Test: D-DIMER QUANT; Value: < 270.0; Range: <500; Units: ng/ml; Status: F Radiology Order: EKG-ADULT Test: EKG-ADULT REASON FOR EXAMINATION: Chest Pain; Stationary ECG Study; [facility] - ED; ; Test Date: 2016-10-17; Pat Name: PARIS RICE Department:; Room: -; 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 Cytogenetics: kassandra; : 1960 Requested By: MELONIE COSTA PA-C.; Order Number: [id number] Reading MD: Дмитрий Jin; Measurements; Intervals [place]; Rate: 78 P: 38; MA: 161 QRS: -4; QRSD: 94 T: 45; QT: 380; QTc: 435; Interpretive Statements; SINUS RHYTHM; NONSPECIFIC T-WAVE ABNORMALITY; SIMILAR TO 10/07/16; Electronically Signed On 10-18-2016 9:20:29 EST by Дмитрий Jin; Radiology Order: CT Chest With Contrast Test: CT Chest With Contrast REASON FOR EXAMINATION: r/o dissection; ; CLINICAL HISTORY: Suspected aortic dissection.; TECHNIQUE: Multiple axial CT images were obtained through chest with IV contrast material. MPR mckeon; l and sagittal sequences were obtained.; COMMENTS:; Limited evaluation of the pulmonary artery and its branches due to the phase of the contrast.; Unremarkable aorta without evidence of aortic dissection.; No aortic aneurysm is seen.; There is no evidence of pleural or parenchymal mass. There are no pleural effusions. There is no evid; ence of hilar or mediastinal lymphadenopathy. The heart and great vessels are within normal limits.; Minimal basilar atelectatic pulmonary changes.; The visualized portions of the liver are of uniform attenuation without mass or defect. There is no i; ntra or extrahepatic biliary ductal dilatation. The spleen is unremarkable. The visualized pancreas i; s of normal contour and attenuation characteristics. There is no evidence of adrenal mass. The visual; ized portions of the kidneys present no acute abnormalities.; Right renal simple cyst.; The bony structures are free of lytic or blastic lesions. Multilevel degenerative changes are seen in; volving the thoracic spine. Scattered calcifications are seen involving the aorta and visualized abdi; r branches compatible with atherosclerosis.; No evidence for abnormal enhancement.; IMPRESSION:; No evidence of acute thoracic pathology.; Thank you for your kind referral of this patient.; ; ; Outcome: 10/17 22:53 Discharge ordered by Provider. ar2 10/18 02:58 Discharge ordered by Provider. cc10 03:10 Discharge Assessment: Patient awake, alert and oriented x 3. No cognitive and/or kmg1 functional deficits noted. Patient verbalized understanding of disposition instructions. Patient awake and alert. patient administered narcotics - yes. Pt provided with safe discharge. The following High Risk Discharge criteria are identified: None. Discharged to home ambulatory, with family. Condition: improved. Discharge instructions given to patient, Instructed on discharge instructions, follow up and referral plans. medication usage, Demonstrated understanding of instructions, medications, Pt was receptive of discharge instructions/ teaching. Prescriptions given X 1. CT Study completed. Property sent home with patient. 03:22 Patient left the ED. [facility] Signatures: Dispatcher [employer] EDNJ Shantell Hassan RN RN kmg1 Jammie Liao RN RN mcp Zecher, Calvin, RN RN cz Dolores Romo, Reg Reg gb Melonie Costa, PA-C PA-C ar2 Precious Haney LPN REHABILITATION COUNSELOR cp1 Kevin Wilson gr2 Pavel Kent, PA-C PA-C cc10 James Mendez,ABELARDO RN jf3 Aure Edwards, Reg Reg ks16 Estefany Lamb, NEWS ANCHOR NEWS ANCHOR adelfo Link, Blanca hall Chart Complete MTDD
== END 2016-10-18 03:22 | disposition home or self-care (01) ==
LOC: M ED 20:52
DX: M54.42 Lumbago with sciatica, left side (principal); G89.29 Other chronic pain; M25.512 Pain in left shoulder; I10 Essential (primary) hypertension; I25.10 Atherosclerotic heart disease of native coronary artery without angina pectoris; F32.9 Major depressive disorder, single episode, unspecified; Z79.899 Other long term (current) drug therapy; Z79.52 Long term (current) use of systemic steroids; Z88.6 Allergy status to analgesic agent
CPT/HCPCS: 36415; 71260; 80048; 82550; 82553; 85025; 85379; 93005; 96372; 96374; 99284; J1170; Q9967

== ENCOUNTER 2016-10-21 21:59 | Emergency (ER) | payer OTHER ==
[~2016-10-21 21:59] MED LIST changes: +OXYC-517 PO; -OXYCO5TA PO
[2016-10-21] MEDS ORDERED: HYDROmorphone HCL 1 MG/ML SYRINGE (J1170) As Ordered ONE (22:36)
--- NOTE | 2016-10-21 23:22 | EDDOCDS ---
Nurse's Notes [facility] Name: Edin Machado Age: 56 yrs Sex: Male : 1960 Arrival Date: 10/21/2016 Time: 21:59 Bed Triage 1 Private MD: Jordan Dos Santos Diagnosis: Cervical disc disorder with radiculopathy;Intervertebral disc disorders with radiculopathy, lumbar region Presentation: 10/21 22:08 Presenting complaint: Patient states: due to have surgery here tomorrow morning for ttb lower back surgery -- cancelled after MD found "herniated discs" in cervical spine on MRI done last night ...instructed to come here for pain control. Left arm/neck/shoulder pain started approx 3 weeks ago. Pt here for pain control. Dr. Murray. Risk Factors No acute neurological deficit is noted. Adult Sepsis Screening: The patient does not have new or worsening altered mentation. Patient's respiratory rate is less than 22. Systolic blood pressure is greater than 100. Patient has a qSOFA score of 0- Negative Sepsis Screen. Suicide/Homicide risk assessment- the patient denies having any suicidal and/or homicidal ideations and does not present with any other emotional, behavioral or mental health complaints. Status: Patient is not a nursing service administrator or dependent. Transition of care: patient was not received from another setting of care. 22:08 Acuity: NEVIN Level 4 ttb 22:08 Method Of Arrival: Walkin/Carried/Asstd ttb Triage Assessment: 22:15 General: Appears in no apparent distress, well nourished, well groomed, Behavior is ttb appropriate for age, cooperative, pleasant. Pain: Location: left neck, shoulder, arm 9/10 Pain At worst was 10 out of 10 on a pain scale. Pain radiates to left arm. HIV screening NA for this visit Offered previously. Neurological: Level of Consciousness is awake, alert. Cardiovascular: Chest pain is denied. Respiratory: No deficits noted. Airway is patent Denies cough, shortness of breath. Derm: Skin is normal. Musculoskeletal: Range of motion intact in all extremities. Reports pain in left neck with movement. Injury Description: No known injury. Historical: - Allergies: Motrinfever; - Home Meds: 1. Cardizem 240 mg Oral 1 tab daily (Last dose: 10/21/2016 08:00) 2. lisinopril 40 mg Oral tab 1 tab once daily (Last dose: 10/21/2016 08:00) 3. lithium carbonate 300 mg Oral cap daily (Last dose: 10/21/2016 08:00) 4. Percocet 5-325 mg Oral tab 2 tabs every 4-6 hours (Last dose: 10/21/2016 17:00) 5. simvastatin 40 mg Oral tab 1 tab once daily (Last dose: 10/21/2016 08:00) 6. Valium 5 mg oral tab 1 tab 3 times per day (Last dose: 10/21/2016 15:00) 7. Wellbutrin XL 300 mg Oral Tb24 1 tab once daily (Last dose: 10/21/2016 08:00) 8. Zoloft 100 mg Oral tab 1 tab once daily (Last dose: 10/21/2016 08:00) - PMHx: CAD; Chronic Back pain; Depression; Hypertension; infection to buttocks; Kidney stones; herniated discs L3,4, C1,2; - PSHx: surgery for wound infection; kidney stone removal X 3; Appendectomy; - Social history: Smoking status: Patient states was never smoker of tobacco. Patient/guardian denies using alcohol, street drugs, No barriers to communication noted, The patient speaks fluent Taiwanese, Speaks appropriately for age. - Family history: Not pertinent. - : The pt / caregiver states he / she is not on anticoagulants. Home medication list is obtained from the patient, Espinela import data. - Exposure Risk Screening:: None identified. Screenin:19 Screening information is obtained from the patient. Fall risk: No risks identified. [facility] Assistance ADL's: requires no assistance with activities of daily living. Abuse/DV Screen: The patient / caregiver reports he/she is: not in a situation that causes fear, pain or injury. Nutritional screening: No deficits noted. Advance Directives: There is no active DNR order. home support is adequate. Assessment: 23:19 General: Appears in no apparent distress, comfortable, Behavior is appropriate for age, [facility] cooperative. Pain: Location: back of neck and posterior chest Pain currently is 8 out of 10 on a pain scale. 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 Gait is steady, utilizes cane. Speech is normal, Facial symmetry appears normal, Facial symmetry: tongue is midline, Pupils are PERRLA. Neurological: Reports no additional symptoms. Respiratory: Airway is patent Respiratory effort is even, unlabored, Respiratory pattern is regular, symmetrical. Derm: Skin is pink, warm & dry. Vital Signs: 22:01 BP 166 / 88 RA Sitting (auto/lg); Pulse 93; Resp 16; Temp 97.9(O); Pulse Ox 100% on rs6 R/A; Weight 113.4 kg (R); Height 5 ft. 10 in. (177.80 cm) (R); Pain 9/10; 23:10 BP 151 / 99; Pulse 86; Resp 16; Temp 98.7; Pulse Ox 99% ; Pain 8/10; cjh 22:01 Body Mass Index 35.87 (113.40 kg, 177.80 cm) rs6 Vitals: 22:01 Log In Time: October 21, 2016 at 22:01. rs6 ED Course: 22:01 Patient visited by Natasha Bunn PCA. rs6 22:01 Jordan Dos Santos is Private Physician. rs6 22:01 Patient moved to Waiting rs6 22:02 Patient visited by Natasha Bunn PCA. rs6 22:02 Patient moved to Pre RCE rs6 22:12 Triage Initiated ttb 22:17 Patient moved to Triage 1 ttb 22:21 Johnie Figueroa PA is PHCP. btw 22:21 Aurea Cerda MD is Attending Physician. btw 22:21 Patient visited by Johnie Figueroa PA. btw 23:01 Marcus Barry is Referral Physician. btw 23:19 The patient / caregiver is instructed regarding the plan of care and ED course. cjh 23:19 No IV's were initiated during this patient's visit. No procedures done that require [facility] assistance. Administered Medications: 22:44 Drug: Dilaudid - HYDROmorphone 1 mg [hydromorphone 1 mg/mL injection syringe (1 mL)] [facility] Route: IM; Site: right deltoid; 23:18 Follow up: Response: Confirmed pt not driving.; No Adverse Reaction; Pain is decreased [facility] Order Results: There are currently no results for this order. Outcome: 23:02 Discharge ordered by Provider. btw 23:19 Discharge Assessment: Patient awake, alert and oriented x 3. No cognitive and/or [facility] functional deficits noted. Patient verbalized understanding of disposition instructions. patient administered narcotics - yes. Pt provided with safe discharge. The following High Risk Discharge criteria are identified: None. Discharged to home ambulatory. Discharged to home with family. Condition: good Condition: stable Condition: improved. Discharge instructions given to patient, Instructed on discharge instructions, follow up and referral plans. Demonstrated understanding of instructions, Pt was receptive of discharge instructions/ teaching. No special radiology studies were completed. Property :Personal belongings accompany Pt. 23:[address] ED[address] [facility] Signatures: Johnie Figueroa PA PA btw Hafner, JaneRN RN [facility] Roxanna Baker RN RN Natasha Bethea, MIRTA COMPRESSOR ASSEMBLER rs6 ROSARIO
--- NOTE | 2016-10-21 23:22 | EDDOCDS ---
Physician Documentation [facility] Name: Edin Machado Age: 56 yrs Sex: Male : 1960 Arrival Date: 10/21/2016 Time: 21:59 Bed Triage 1 Private MD: Jordan Dos Santos Disposition: 10/21/16 23:02 Discharged to Home/Self Care. Impression: Cervical disc disorder with radiculopathy, Intervertebral disc disorders with radiculopathy, lumbar region. - Condition is Stable. - Discharge Instructions: Chronic Pain, Herniated Disk, Oufj-[id number], Cervical Radiculopathy, Orid-lh-[id number]. - Medication Reconciliation, Local Pharmacy Hours form. - Follow up: Marcus Barry; When: Call to arrange an appointment; Reason: Further diagnostic work-up, Recheck today's complaints, Continuance of care. - Problem is chronic. - Symptoms are unchanged. Historical: - Allergies: Motrinfever; - Home Meds: 1. Cardizem 240 mg Oral 1 tab daily (Last dose: 10/21/2016 08:00) 2. lisinopril 40 mg Oral tab 1 tab once daily (Last dose: 10/21/2016 08:00) 3. lithium carbonate 300 mg Oral cap daily (Last dose: 10/21/2016 08:00) 4. Percocet 5-325 mg Oral tab 2 tabs every 4-6 hours (Last dose: 10/21/2016 17:00) 5. simvastatin 40 mg Oral tab 1 tab once daily (Last dose: 10/21/2016 08:00) 6. Valium 5 mg oral tab 1 tab 3 times per day (Last dose: 10/21/2016 15:00) 7. Wellbutrin XL 300 mg Oral Tb24 1 tab once daily (Last dose: 10/21/2016 08:00) 8. Zoloft 100 mg Oral tab 1 tab once daily (Last dose: 10/21/2016 08:00) - PMHx: CAD; Chronic Back pain; Depression; Hypertension; infection to buttocks; Kidney stones; herniated discs L3,4, C1,2; - PSHx: surgery for wound infection; kidney stone removal X 3; Appendectomy; - Social history: Smoking status: Patient states was never smoker of tobacco. Patient/guardian denies using alcohol, street drugs, No barriers to communication noted, The patient speaks fluent German, Speaks appropriately for age. - Family history: Not pertinent. - : The pt / caregiver states he / she is not on anticoagulants. Home medication list is obtained from the patient, [employer] import data. - Exposure Risk Screening:: None identified. Vital Signs: 10/21 22:01 BP 166 / 88 RA Sitting (auto/lg); Pulse 93; Resp 16; Temp 97.9(O); Pulse Ox 100% on rs6 R/A; Weight 113.4 kg / 250 lbs (R); Height 5 ft. 10 in. (177.80 cm) (R); Pain 9/10; 23:10 BP 151 / 99; Pulse 86; Resp 16; Temp 98.7; Pulse Ox 99% ; Pain 8/10; [facility] 22:01 Body Mass Index 35.87 (113.40 kg, 177.80 cm) rs6 MDM: 22:31 Dilaudid - HYDROmorphone 1 mg IM once ordered. btw Administered Medications: 22:44 Drug: Dilaudid - HYDROmorphone 1 mg [hydromorphone 1 mg/mL injection syringe (1 mL)] [facility] Route: IM; Site: right deltoid; 23:18 Follow up: Response: Confirmed pt not driving.; No Adverse Reaction; Pain is decreased [facility] Signatures: Johnie Figueroa PA PA btw Michelle Koehler RN RN [facility] Roxanna Baker RN RN ttb MTDD
--- NOTE | 2016-10-24 00:23 | EDDOCDS ---
Nurse's Notes [facility] Name: Edin Machado Age: 56 yrs Sex: Male : 1960 Arrival Date: 10/21/2016 Time: 21:59 Bed Triage 1 Private MD: Jordan Dos Santos Diagnosis: Cervical disc disorder with radiculopathy;Intervertebral disc disorders with radiculopathy, lumbar region Presentation: 10/21 22:08 Presenting complaint: Patient states: due to have surgery here tomorrow morning for ttb lower back surgery -- cancelled after MD found "herniated discs" in cervical spine on MRI done last night ...instructed to come here for pain control. Left arm/neck/shoulder pain started approx 3 weeks ago. Pt here for pain control. Dr. Murray. Risk Factors No acute neurological deficit is noted. Adult Sepsis Screening: The patient does not have new or worsening altered mentation. Patient's respiratory rate is less than 22. Systolic blood pressure is greater than 100. Patient has a qSOFA score of 0- Negative Sepsis Screen. Suicide/Homicide risk assessment- the patient denies having any suicidal and/or homicidal ideations and does not present with any other emotional, behavioral or mental health complaints. Status: Patient is not a chief service dispatcher or dependent. Transition of care: patient was not received from another setting of care. 22:08 Acuity: NEVIN Level 4 ttb 22:08 Method Of Arrival: Walkin/Carried/Asstd ttb Triage Assessment: 22:15 General: Appears in no apparent distress, well nourished, well groomed, Behavior is ttb appropriate for age, cooperative, pleasant. Pain: Location: left neck, shoulder, arm 9/10 Pain At worst was 10 out of 10 on a pain scale. Pain radiates to left arm. HIV screening NA for this visit Offered previously. Neurological: Level of Consciousness is awake, alert. Cardiovascular: Chest pain is denied. Respiratory: No deficits noted. Airway is patent Denies cough, shortness of breath. Derm: Skin is normal. Musculoskeletal: Range of motion intact in all extremities. Reports pain in left neck with movement. Injury Description: No known injury. Historical: - Allergies: Motrinfever; - Home Meds: 1. Cardizem 240 mg Oral 1 tab daily (Last dose: 10/21/2016 08:00) 2. lisinopril 40 mg Oral tab 1 tab once daily (Last dose: 10/21/2016 08:00) 3. lithium carbonate 300 mg Oral cap daily (Last dose: 10/21/2016 08:00) 4. Percocet 5-325 mg Oral tab 2 tabs every 4-6 hours (Last dose: 10/21/2016 17:00) 5. simvastatin 40 mg Oral tab 1 tab once daily (Last dose: 10/21/2016 08:00) 6. Valium 5 mg oral tab 1 tab 3 times per day (Last dose: 10/21/2016 15:00) 7. Wellbutrin XL 300 mg Oral Tb24 1 tab once daily (Last dose: 10/21/2016 08:00) 8. Zoloft 100 mg Oral tab 1 tab once daily (Last dose: 10/21/2016 08:00) - PMHx: CAD; Chronic Back pain; Depression; Hypertension; infection to buttocks; Kidney stones; herniated discs L3,4, C1,2; - PSHx: surgery for wound infection; kidney stone removal X 3; Appendectomy; - Social history: Smoking status: Patient states was never smoker of tobacco. Patient/guardian denies using alcohol, street drugs, No barriers to communication noted, The patient speaks fluent Serbian, Speaks appropriately for age. - Family history: Not pertinent. - : The pt / caregiver states he / she is not on anticoagulants. Home medication list is obtained from the patient, [employer] import data. - Exposure Risk Screening:: None identified. Screenin:19 Screening information is obtained from the patient. Fall risk: No risks identified. [facility] Assistance ADL's: requires no assistance with activities of daily living. Abuse/DV Screen: The patient / caregiver reports he/she is: not in a situation that causes fear, pain or injury. Nutritional screening: No deficits noted. Advance Directives: There is no active DNR order. home support is adequate. Assessment: 23:19 General: Appears in no apparent distress, comfortable, Behavior is appropriate for age, [facility] cooperative. Pain: Location: back of neck and posterior chest Pain currently is 8 out of 10 on a pain scale. Neurological: Level of Consciousness is awake, alert, Oriented to person, place, time, Liquor Inspector are equal bilaterally Moves all extremities. Gait is steady, utilizes cane. Speech is normal, Facial symmetry appears normal, Facial symmetry: tongue is midline, Pupils are PERRLA. Neurological: Reports no additional symptoms. Respiratory: Airway is patent Respiratory effort is even, unlabored, Respiratory pattern is regular, symmetrical. Derm: Skin is pink, warm & dry. Vital Signs: 22:01 BP 166 / 88 RA Sitting (auto/lg); Pulse 93; Resp 16; Temp 97.9(O); Pulse Ox 100% on rs6 R/A; Weight 113.4 kg (R); Height 5 ft. 10 in. (177.80 cm) (R); Pain 9/10; 23:10 BP 151 / 99; Pulse 86; Resp 16; Temp 98.7; Pulse Ox 99% ; Pain 8/10; cjh 22:01 Body Mass Index 35.87 (113.40 kg, 177.80 cm) rs6 Vitals: 22:01 Log In Time: October 21, 2016 at 22:01. rs6 ED Course: 22:01 Patient visited by Natsaha Bunn PCA. rs6 22:01 Jordan Dos Santos is Private Physician. rs6 22:01 Patient moved to Waiting rs6 22:02 Patient visited by Natasha Bunn PCA. rs6 22:02 Patient moved to Pre RCE rs6 22:12 Triage Initiated ttb 22:17 Patient moved to Triage 1 ttb 22:21 Johnie Figueroa PA is PHCP. btw 22:21 Aruea Cerda MD is Attending Physician. btw 22:21 Patient visited by Johnie Figueroa PA. btw 23:01 Marcus Barry is Referral Physician. btw 23:19 The patient / caregiver is instructed regarding the plan of care and ED course. cj 23:19 No IV's were initiated during this patient's visit. No procedures done that require [facility] assistance. 10/22 11:39 T-Sheet-- Draft Copy was scanned into [employer] and attached to record. gb Administered Medications: 10/21 22:44 Drug: Dilaudid - HYDROmorphone 1 mg [hydromorphone 1 mg/mL injection syringe (1 mL)] [facility] Route: IM; Site: right deltoid; 23:18 Follow up: Response: Confirmed pt not driving.; No Adverse Reaction; Pain is decreased [facility] Order Results: There are currently no results for this order. Outcome: 23:02 Discharge ordered by Provider. btw 23:19 Discharge Assessment: Patient awake, alert and oriented x 3. No cognitive and/or [facility] functional deficits noted. Patient verbalized understanding of disposition instructions. patient administered narcotics - yes. Pt provided with safe discharge. The following High Risk Discharge criteria are identified: None. Discharged to home ambulatory. Discharged to home with family. Condition: good Condition: stable Condition: improved. Discharge instructions given to patient, Instructed on discharge instructions, follow up and referral plans. Demonstrated understanding of instructions, Pt was receptive of discharge instructions/ teaching. No special radiology studies were completed. Property :Personal belongings accompany Pt. 23:21 Patient left the ED. [facility] Signatures: Dolores Romo, Reg Reg Johnie Weeks PA PA btw Hafner, JaneRN RN Roxanna Dean RN RN ttb Schmitt, Rebecca, MIRTA BUILD ENGINEER rs6 Chart Complete [facility]
--- NOTE | 2016-10-24 00:23 | EDDOCDS ---
Physician Documentation [facility] [place] Name: Edin Machado Age: 56 yrs Sex: Male : 1960 Arrival Date: 10/21/2016 Time: 21:59 Bed Triage 1 Private MD: Jordan Dos Santos Disposition: 10/21/16 23:02 Discharged to Home/Self Care. Impression: Cervical disc disorder with radiculopathy, Intervertebral disc disorders with radiculopathy, lumbar region. - Condition is Stable. - Discharge Instructions: Chronic Pain, Herniated Disk, [id number], Cervical Radiculopathy, [id number]-tg-[id number]. - Medication Reconciliation, Local Pharmacy Hours form. - Follow up: Marcus Barry; When: Call to arrange an appointment; Reason: Further diagnostic work-up, Recheck today's complaints, Continuance of care. - Problem is chronic. - Symptoms are unchanged. Historical: - Allergies: Motrinfever; - Home Meds: 1. Cardizem 240 mg Oral 1 tab daily (Last dose: 10/21/2016 08:00) 2. lisinopril 40 mg Oral tab 1 tab once daily (Last dose: 10/21/2016 08:00) 3. lithium carbonate 300 mg Oral cap daily (Last dose: 10/21/2016 08:00) 4. Percocet 5-325 mg Oral tab 2 tabs every 4-6 hours (Last dose: 10/21/2016 17:00) 5. simvastatin 40 mg Oral tab 1 tab once daily (Last dose: 10/21/2016 08:00) 6. Valium 5 mg oral tab 1 tab 3 times per day (Last dose: 10/21/2016 15:00) 7. Wellbutrin XL 300 mg Oral Tb24 1 tab once daily (Last dose: 10/21/2016 08:00) 8. Zoloft 100 mg Oral tab 1 tab once daily (Last dose: 10/21/2016 08:00) - PMHx: CAD; Chronic Back pain; Depression; Hypertension; infection to buttocks; Kidney stones; herniated discs L3,4, C1,2; - PSHx: surgery for wound infection; kidney stone removal X 3; Appendectomy; - Social history: Smoking status: Patient states was never smoker of tobacco. Patient/guardian denies using alcohol, street drugs, No barriers to communication noted, The patient speaks fluent Divehi, Speaks appropriately for age. - Family history: Not pertinent. - : The pt / caregiver states he / she is not on anticoagulants. Home medication list is obtained from the patient, [email or web address] import data. - Exposure Risk Screening:: None identified. Vital Signs: 10/21 22:01 BP 166 / 88 RA Sitting (auto/lg); Pulse 93; Resp 16; Temp 97.9(O); Pulse Ox 100% on rs6 R/A; Weight 113.4 kg / 250 lbs (R); Height 5 ft. 10 in. (177.80 cm) (R); Pain 9/10; 23:10 BP 151 / 99; Pulse 86; Resp 16; Temp 98.7; Pulse Ox 99% ; Pain 8/10; cjh 22:01 Body Mass Index 35.87 (113.40 kg, 177.80 cm) rs6 MDM: 22:31 Dilaudid - HYDROmorphone 1 mg IM once ordered. btw 10/22 11:39 T-Sheet-- Draft Copy was scanned into [employer] and attached to record. gb Administered Medications: 10/21 22:44 Drug: Dilaudid - HYDROmorphone 1 mg [hydromorphone 1 mg/mL injection syringe (1 mL)] [facility] Route: IM; Site: right deltoid; 23:18 Follow up: Response: Confirmed pt not driving.; No Adverse Reaction; Pain is decreased [facility] Signatures: Dolores Romo, Reg Reg gb Johnie Figueroa PA PA btMichelle Moreau RN RN [facility] Roxanna Baker RN RN ttb The chart was reviewed and I authenticate all verbal orders and agree with the evaluation and treatment provided.Attachments: 10/22 11:39 T-Sheet-- Draft Copy Chart Complete MTDD
--- NOTE | 2016-10-24 00:23 | EDDOCDS ---
Physician Documentation [facility] Name: Edin Machado Age: 56 yrs Sex: Male : 1960 Arrival Date: 10/21/2016 Time: 21:59 Bed Triage 1 Private MD: Jordan Dos Santos Disposition: 10/21/16 23:02 Discharged to Home/Self Care. Impression: Cervical disc disorder with radiculopathy, Intervertebral disc disorders with radiculopathy, lumbar region. - Condition is Stable. - Discharge Instructions: Chronic Pain, Herniated Disk, [id number]-[id number], Cervical Radiculopathy, Dehm-nf-Kpnm. - Medication Reconciliation, Local Pharmacy Hours form. - Follow up: Marcus Barry; When: Call to arrange an appointment; Reason: Further diagnostic work-up, Recheck today's complaints, Continuance of care. - Problem is chronic. - Symptoms are unchanged. Historical: - Allergies: Motrinfever; - Home Meds: 1. Cardizem 240 mg Oral 1 tab daily (Last dose: 10/21/2016 08:00) 2. lisinopril 40 mg Oral tab 1 tab once daily (Last dose: 10/21/2016 08:00) 3. lithium carbonate 300 mg Oral cap daily (Last dose: 10/21/2016 08:00) 4. Percocet 5-325 mg Oral tab 2 tabs every 4-6 hours (Last dose: 10/21/2016 17:00) 5. simvastatin 40 mg Oral tab 1 tab once daily (Last dose: 10/21/2016 08:00) 6. Valium 5 mg oral tab 1 tab 3 times per day (Last dose: 10/21/2016 15:00) 7. Wellbutrin XL 300 mg Oral Tb24 1 tab once daily (Last dose: 10/21/2016 08:00) 8. Zoloft 100 mg Oral tab 1 tab once daily (Last dose: 10/21/2016 08:00) - PMHx: CAD; Chronic Back pain; Depression; Hypertension; infection to buttocks; Kidney stones; herniated discs L3,4, C1,2; - PSHx: surgery for wound infection; kidney stone removal X 3; Appendectomy; - Social history: Smoking status: Patient states was never smoker of tobacco. Patient/guardian denies using alcohol, street drugs, No barriers to communication noted, The patient speaks fluent Sami, Speaks appropriately for age. - Family history: Not pertinent. - : The pt / caregiver states he / she is not on anticoagulants. Home medication list is obtained from the patient, [employer] import data. - Exposure Risk Screening:: None identified. Vital Signs: 10/21 22:01 BP 166 / 88 RA Sitting (auto/lg); Pulse 93; Resp 16; Temp 97.9(O); Pulse Ox 100% on rs6 R/A; Weight 113.4 kg / 250 lbs (R); Height 5 ft. 10 in. (177.80 cm) (R); Pain 9/10; 23:10 BP 151 / 99; Pulse 86; Resp 16; Temp 98.7; Pulse Ox 99% ; Pain 8/10; cjh 22:01 Body Mass Index 35.87 (113.40 kg, 177.80 cm) rs6 MDM: 22:31 Dilaudid - HYDROmorphone 1 mg IM once ordered. btw 10/22 11:39 T-Sheet-- Draft Copy was scanned into [employer] and attached to record. gb Administered Medications: 10/21 22:44 Drug: Dilaudid - HYDROmorphone 1 mg [hydromorphone 1 mg/mL injection syringe (1 mL)] [facility] Route: IM; Site: right deltoid; 23:18 Follow up: Response: Confirmed pt not driving.; No Adverse Reaction; Pain is decreased [facility] Signatures: Dolores Romo, Reg Reg gb Johnie Figueroa PA PA btMichelle Moreau RN RN [facility] Roxanna Baker RN RN ttb The chart was reviewed and I authenticate all verbal orders and agree with the evaluation and treatment provided.Attachments: 10/22 11:39 T-Sheet-- Draft Copy Chart Complete MTDD
== END 2016-10-21 23:21 | disposition home or self-care (01) ==
LOC: M ED 21:59
DX: M54.12 Radiculopathy, cervical region (principal); M54.16 Radiculopathy, lumbar region; G89.29 Other chronic pain; F32.9 Major depressive disorder, single episode, unspecified; I10 Essential (primary) hypertension; I25.10 Atherosclerotic heart disease of native coronary artery without angina pectoris; Z87.442 Personal history of urinary calculi; Z79.899 Other long term (current) drug therapy; Z88.6 Allergy status to analgesic agent
CPT/HCPCS: 96372; 99283; J1170

== ENCOUNTER 2016-10-27 06:34 | Emergency (ER) | payer OTHER ==
[2016-10-27] MEDS ORDERED: HYDROmorphone HCL 1 MG/ML SYRINGE (J1170) As Ordered ONE (07:25)
--- NOTE | 2016-10-27 08:53 | EDDOCDS ---
Nurse's Notes [facility] Name: Edin Machado Age: 56 yrs Sex: Male : 1960 Arrival Date: 10/27/2016 Time: 06:34 Bed I2 / M2 Private MD: Jordan Dos Santos Diagnosis: Other chronic pain-due to multilevel degenerative disc disease Presentation: 10/27 06:42 Presenting complaint: Patient states: here for his chronic back and neck pain surgery cz was cancelled because they found more herniated disc's. Acute neurological deficits are not present. Mechanism of Injury: No Mechanism of Injury. Adult Sepsis Screening: The patient does not have new or worsening altered mentation. Patient's respiratory rate is less than 22. Systolic blood pressure is greater than 100. Patient has a qSOFA score of 0- Negative Sepsis Screen. Suicide/Homicide risk assessment- the patient denies having any suicidal and/or homicidal ideations and does not present with any other emotional, behavioral or mental health complaints. 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 Transition of care: patient was not received from another setting of care. 06:42 Acuity: NEVIN Level 4 cz 06:42 Method Of Arrival: Walkin/Carried/Asstd cz Triage Assessment: 06:47 General: Appears uncomfortable. Pain: Location: back Pain currently is 10 out of 10 on cz a pain scale. HIV screening NA for this visit Offered previously. Historical: - Allergies: Motrinfever; - Home Meds: 1. Cardizem 240 mg Oral 1 tab daily 2. lisinopril 40 mg Oral tab 1 tab once daily 3. lithium carbonate 300 mg Oral cap daily 4. prednisone 20 mg Oral tab 3 tab once daily 5. simvastatin 40 mg Oral tab 1 tab once daily 6. Wellbutrin XL 300 mg Oral Tb24 1 tab once daily 7. Zoloft 100 mg Oral tab 1 tab once daily 8. Percocet 5-325 mg Oral tab 2 tabs every 4-6 hours (Last dose: 10/27/2016 01:00) 9. Valium 5 mg Oral tab 1 tab 3 times per day (Last dose: 10/26/2016 14:00) - PMHx: CAD; Chronic Back pain; Depression; herniated discs L3,4, C1,2; Hypertension; infection to buttocks; Kidney stones; - PSHx: kidney stone removal; Appendectomy; surgery for wound infection; - Social history: Smoking status: Patient states was never smoker of tobacco. No barriers to communication noted, The patient speaks fluent Uzbek, Speaks appropriately for age. - Family history: Not pertinent. - : The pt / caregiver states he / she is not on anticoagulants. Home medication list is obtained from the patient. - Exposure Risk Screening:: None identified. Screenin:21 Screening information is obtained from the patient. Primary language is Uzbek. Fall jam1 risk: No risks identified. Assistance ADL's: requires no assistance with activities of daily living. Abuse/DV Screen: The patient / caregiver reports he/she is: not in a situation that causes fear, pain or injury. Nutritional screening: No deficits noted. Exposure Risk Screening: None identified. Advance Directives: Currently, there is no health care proxy. There is no active DNR order. There is no living will. There is no Power of Sand Mill Operator. Advance directive information has not previously been placed in an [facility] medical record. Further advance directive information is declined. home support is adequate. Assessment: 07:13 General: Patient having pain in left side of neck and right low back. Is scheduled to kcs have PT on his neck and then possibly surgery on his low back first. Patient had a lengthy conversation about Dr. Luna and lack of surgery, states he called and talked to Dali at their office yesterday and is supposed to see Seth Ramirez this am. States they tell him to come here for pain control and he wants to have something done to stop the pain. Wants to talk to Dali about transferring to Dr. Miranda because Dr. Barry [place]. 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 Offered patient PSA services and he states he is seeing Dr. Gunderson for his stress.. Pain: Location: left side of neck and right low back. Neurological: Level of Consciousness is awake, alert. Respiratory: Airway is patent Respiratory effort is even, unlabored, Respiratory pattern is regular, symmetrical. Derm: Skin is intact, is healthy with good turgor, Skin is dry, Skin is black. 07:55 Reassessment: RN in to discharge patient - patient has an appointment at 0900 at [facility] Neurosurgery and wants to wait in the room until 0830 and then he will walk up to his appointment. 08:42 Reassessment: Patient states his right side of back is better but the left side of his kcs neck is still painful. Patient wants to walk to his appointment and is ready now. Gait slow and steady.. General: Appears comfortable, well developed, well nourished, well groomed, Behavior is cooperative, pleasant. Pain: Location: right low back and left side of neck. Neurological: Level of Consciousness is awake, alert. Respiratory: Airway is patent Respiratory effort is even, unlabored, Respiratory pattern is regular, symmetrical. Derm: Skin is intact, is healthy with good turgor, Skin is dry, Skin is black. Vital Signs: 06:47 BP 145 / 85; Pulse 108; Resp 16; Temp 98.8(T); Pulse Ox 98% on R/A; Weight 113.4 kg; cz Height 5 ft. 10 in. (177.80 cm); 07:50 BP 121 / 74; Pulse 99; Resp 20; Temp 98.0; Pulse Ox 98% ; Pain 8/10; jam1 06:47 Body Mass Index 35.87 (113.40 kg, 177.80 cm) Vitals: 06:47 Log In Time: October 27, 2016 at 06:34. ED Course: 06:37 Patient visited by Jose Pereira, Reg. pm4 06:37 Jordan Dos Santos is Private Physician. pm4 06:37 Patient moved to Waiting pm4 06:44 Triage Initiated 06:50 Patient moved to MTA Wait 06:59 Patient moved to I2 / M2 [facility] 07:09 Steven Costa PA-C is PHCP. ar2 07:09 Дмитрий Jin MD is Attending Physician. ar2 07:09 Patient visited by Steven Costa PA-C. ar2 07:20 Pt greeted and oriented to ED. Patient advised of names of staff involved in care, jam1 location of call herrera, wait times and NPO status. Patient has correct armband on for positive identification. Bed in low position. Call light in reach. Side rails up X 1. Door closed. 07:22 Pedro Ramirez is Referral Physician. ar2 07:50 [facility] Payment Agreement was scanned into [employer] and attached to record. lg 08:42 The patient / caregiver is instructed regarding the plan of care and ED course. kcs 08:42 No IV's were initiated during this patient's visit. No procedures done that require kcs assistance. Administered Medications: 07:22 CANCELLED (Other Intervention Used): Dilaudid - HYDROmorphone 1 mg IM once ar2 07:31 Drug: Dilaudid - HYDROmorphone 0.5 mg [hydromorphone 1 mg/mL injection syringe (0.5 kcs mL)] Route: IM; Site: right deltoid; Order Results: There are currently no results for this order. Outcome: 07:23 Discharge ordered by Provider. ar2 08:42 Discharge Assessment: Patient awake, alert and oriented x 3. No cognitive and/or kcs functional deficits noted. Patient verbalized understanding of disposition instructions. Patient awake and alert. patient administered narcotics - yes. Pt provided with safe discharge. The following High Risk Discharge criteria are identified: None. Discharged to going to appointment. Condition: stable. Discharge instructions given to patient, Instructed on discharge instructions, follow up and referral plans. Demonstrated understanding of instructions, Pt was receptive of discharge instructions/ teaching. No special radiology studies were completed. Property sent home with patient. 08:52 Patient left the ED. kcs Signatures: Estelita Treviño RN RN Griffin Nixon RN RN cz Murphy, Jane, US CUSTOMS AND BORDER OFFICER US CUSTOMS AND BORDER OFFICER jam1 Perla Gates, Reg Reg lg Steven Costa, PA-C PA-C ar2 Jose Pereira, Reg Reg pm4 MTDD
--- NOTE | 2016-10-27 08:53 | EDDOCDS ---
Physician Documentation [facility] Name: Edin Machado Age: 56 yrs Sex: Male : 1960 Arrival Date: 10/27/2016 Time: 06:34 Bed I2 / M2 Private MD: Jordan Dos Santos Disposition: 10/27/16 07:23 Discharged to Home/Self Care. Impression: Other chronic pain - due to multilevel degenerative disc disease. - Condition is Stable. - Discharge Instructions: Chronic Pain. - Medication Reconciliation, Local Pharmacy Hours form. - Follow up: Pedro Ramirez; When: Today; Reason: Recheck today's complaints, Continuance of care. - Problem is chronic. - Symptoms are unchanged. - Notes: please obtainreferral for pain management from your neurosurgery office. Historical: - Allergies: Motrinfever; - Home Meds: 1. Cardizem 240 mg Oral 1 tab daily 2. lisinopril 40 mg Oral tab 1 tab once daily 3. lithium carbonate 300 mg Oral cap daily 4. prednisone 20 mg Oral tab 3 tab once daily 5. simvastatin 40 mg Oral tab 1 tab once daily 6. Wellbutrin XL 300 mg Oral Tb24 1 tab once daily 7. Zoloft 100 mg Oral tab 1 tab once daily 8. Percocet 5-325 mg Oral tab 2 tabs every 4-6 hours (Last dose: 10/27/2016 01:00) 9. Valium 5 mg Oral tab 1 tab 3 times per day (Last dose: 10/26/2016 14:00) - PMHx: CAD; Chronic Back pain; Depression; herniated discs L3,4, C1,2; Hypertension; infection to buttocks; Kidney stones; - PSHx: kidney stone removal; Appendectomy; surgery for wound infection; - Social history: Smoking status: Patient states was never smoker of tobacco. No barriers to communication noted, The patient speaks fluent Albanian, Speaks appropriately for age. - Family history: Not pertinent. - : The pt / caregiver states he / she is not on anticoagulants. Home medication list is obtained from the patient. - Exposure Risk Screening:: None identified. Vital Signs: 10/27 06:47 BP 145 / 85; Pulse 108; Resp 16; Temp 98.8(T); Pulse Ox 98% on R/A; Weight 113.4 kg / cz 250 lbs; Height 5 ft. 10 in. (177.80 cm); 07:50 BP 121 / 74; Pulse 99; Resp 20; Temp 98.0; Pulse Ox 98% ; Pain 8/10; jam1 06:47 Body Mass Index 35.87 (113.40 kg, 177.80 cm) cz MDM: 07:22 Dilaudid - HYDROmorphone 0.5 mg IM once ordered. ar2 07:50 Financial registration complete. lg 07:50 [facility] Payment Agreement was scanned into [employer] and attached to record. lg Administered Medications: 07:22 CANCELLED (Other Intervention Used): Dilaudid - HYDROmorphone 1 mg IM once ar2 07:31 Drug: Dilaudid - HYDROmorphone 0.5 mg [hydromorphone 1 mg/mL injection syringe (0.5 kcs mL)] Route: IM; Site: right deltoid; Signatures: Estelita Treviño RN RN kcs Griffin Dockery RN RN cz Perla Gates, Lacho Monk lg Steven Costa PA-C PA-C ar2 The chart was reviewed and I authenticate all verbal orders and agree with the evaluation and treatment provided.Corrections: (The following items were deleted from the chart) 07:22 07:19 Dilaudid - HYDROmorphone 1 mg IM once ordered. ar2 ar2 Attachments: 07:50 [facility] Payment Agreement lg MTDD
--- NOTE | 2016-10-29 09:53 | EDDOCDS ---
Nurse's Notes [facility] Name: Edin Machado Age: 56 yrs Sex: Male : 1960 Arrival Date: 10/27/2016 Time: 06:34 Bed I2 / M2 Private MD: Jordan Dos Santos Diagnosis: Other chronic pain-due to multilevel degenerative disc disease Presentation: 10/27 06:42 Presenting complaint: Patient states: here for his chronic back and neck pain surgery cz was cancelled because they found more herniated disc's. Acute neurological deficits are not present. Mechanism of Injury: No Mechanism of Injury. Adult Sepsis Screening: The patient does not have new or worsening altered mentation. Patient's respiratory rate is less than 22. Systolic blood pressure is greater than 100. Patient has a qSOFA score of 0- Negative Sepsis Screen. Suicide/Homicide risk assessment- the patient denies having any suicidal and/or homicidal ideations and does not present with any other emotional, behavioral or mental health complaints. 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 Transition of care: patient was not received from another setting of care. 06:42 Acuity: NEVIN Level 4 cz 06:42 Method Of Arrival: Walkin/Carried/Asstd cz Triage Assessment: 06:47 General: Appears uncomfortable. Pain: Location: back Pain currently is 10 out of 10 on cz a pain scale. HIV screening NA for this visit Offered previously. Historical: - Allergies: Motrinfever; - Home Meds: 1. Cardizem 240 mg Oral 1 tab daily 2. lisinopril 40 mg Oral tab 1 tab once daily 3. lithium carbonate 300 mg Oral cap daily 4. prednisone 20 mg Oral tab 3 tab once daily 5. simvastatin 40 mg Oral tab 1 tab once daily 6. Wellbutrin XL 300 mg Oral Tb24 1 tab once daily 7. Zoloft 100 mg Oral tab 1 tab once daily 8. Percocet 5-325 mg Oral tab 2 tabs every 4-6 hours (Last dose: 10/27/2016 01:00) 9. Valium 5 mg Oral tab 1 tab 3 times per day (Last dose: 10/26/2016 14:00) - PMHx: CAD; Chronic Back pain; Depression; herniated discs L3,4, C1,2; Hypertension; infection to buttocks; Kidney stones; - PSHx: kidney stone removal; Appendectomy; surgery for wound infection; - Social history: Smoking status: Patient states was never smoker of tobacco. No barriers to communication noted, The patient speaks fluent Romansh, Speaks appropriately for age. - Family history: Not pertinent. - : The pt / caregiver states he / she is not on anticoagulants. Home medication list is obtained from the patient. - Exposure Risk Screening:: None identified. Screenin:21 Screening information is obtained from the patient. Primary language is Romansh. Fall jam1 risk: No risks identified. Assistance ADL's: requires no assistance with activities of daily living. Abuse/DV Screen: The patient / caregiver reports he/she is: not in a situation that causes fear, pain or injury. Nutritional screening: No deficits noted. Exposure Risk Screening: None identified. Advance Directives: Currently, there is no health care proxy. There is no active DNR order. There is no living will. There is no Power of Demand Inspector. Advance directive information has not previously been placed in an [facility] medical record. Further advance directive information is declined. home support is adequate. Assessment: 07:13 General: Patient having pain in left side of neck and right low back. Is scheduled to kcs have PT on his neck and then possibly surgery on his low back first. Patient had a lengthy conversation about Dr. Luna and lack of surgery, states he called and talked to Dali at their office yesterday and is supposed to see Seth Ramirez this am. States they tell him to come here for pain control and he wants to have something done to stop the pain. Wants to talk to Dail about transferring to Dr. Miranda because Dr. Barry [place]. 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 Offered patient PSA services and he states he is seeing Dr. Gunderson for his stress.. Pain: Location: left side of neck and right low back. Neurological: Level of Consciousness is awake, alert. Respiratory: Airway is patent Respiratory effort is even, unlabored, Respiratory pattern is regular, symmetrical. Derm: Skin is intact, is healthy with good turgor, Skin is dry, Skin is black. 07:55 Reassessment: RN in to discharge patient - patient has an appointment at 0900 at [facility] Neurosurgery and wants to wait in the room until 0830 and then he will walk up to his appointment. 08:42 Reassessment: Patient states his right side of back is better but the left side of his kcs neck is still painful. Patient wants to walk to his appointment and is ready now. Gait slow and steady.. General: Appears comfortable, well developed, well nourished, well groomed, Behavior is cooperative, pleasant. Pain: Location: right low back and left side of neck. Neurological: Level of Consciousness is awake, alert. Respiratory: Airway is patent Respiratory effort is even, unlabored, Respiratory pattern is regular, symmetrical. Derm: Skin is intact, is healthy with good turgor, Skin is dry, Skin is black. Vital Signs: 06:47 BP 145 / 85; Pulse 108; Resp 16; Temp 98.8(T); Pulse Ox 98% on R/A; Weight 113.4 kg; cz Height 5 ft. 10 in. (177.80 cm); 07:50 BP 121 / 74; Pulse 99; Resp 20; Temp 98.0; Pulse Ox 98% ; Pain 8/10; jam1 06:47 Body Mass Index 35.87 (113.40 kg, 177.80 cm) Vitals: 06:47 Log In Time: October 27, 2016 at 06:34. ED Course: 06:37 Patient visited by Jose Pereira, Reg. pm4 06:37 Jordan Dos Santos is Private Physician. pm4 06:37 Patient moved to Waiting pm4 06:44 Triage Initiated 06:50 Patient moved to MTA Wait 06:59 Patient moved to I2 / M2 [facility] 07:09 Steven Costa PA-C is PHCP. ar2 07:09 Дмитрий Jin MD is Attending Physician. ar2 07:09 Patient visited by Steven Costa PA-C. ar2 07:20 Pt greeted and oriented to ED. Patient advised of names of staff involved in care, jam1 location of call herrera, wait times and NPO status. Patient has correct armband on for positive identification. Bed in low position. Call light in reach. Side rails up X 1. Door closed. 07:22 Pedro Ramirez is Referral Physician. ar2 07:50 [facility] [place] Payment Agreement was scanned into [employer] and attached to record. lg 08:42 The patient / caregiver is instructed regarding the plan of care and ED course. kcs 08:42 No IV's were initiated during this patient's visit. No procedures done that require kcs assistance. 12:56 T-Sheet-- Draft Copy was scanned into [employer] and attached to record. gb Administered Medications: 07:22 CANCELLED (Other Intervention Used): Dilaudid - HYDROmorphone 1 mg IM once ar2 07:31 Drug: Dilaudid - HYDROmorphone 0.5 mg [hydromorphone 1 mg/mL injection syringe (0.5 kcs mL)] Route: IM; Site: right deltoid; Order Results: There are currently no results for this order. Outcome: 07:23 Discharge ordered by Provider. ar2 08:42 Discharge Assessment: Patient awake, alert and oriented x 3. No cognitive and/or kcs functional deficits noted. Patient verbalized understanding of disposition instructions. Patient awake and alert. patient administered narcotics - yes. Pt provided with safe discharge. The following High Risk Discharge criteria are identified: None. Discharged to going to appointment. Condition: stable. Discharge instructions given to patient, Instructed on discharge instructions, follow up and referral plans. Demonstrated understanding of instructions, Pt was receptive of discharge instructions/ teaching. No special radiology studies were completed. Property sent home with patient. 08:52 Patient left the ED. kcs Signatures: Estelita Treviño, RN RN kcs Griffin Dockery, ABELARDO RN cz Michelle Osei, LEGAL CLERK LEGAL CLERK jam1 Dolores Romo, Reg Reg gb Perla Gates, Reg Reg lg Steven Costa PA-C PA-C ar2 Jose Pereira, Reg Reg pm4 Chart Complete MTDD
--- NOTE | 2016-10-29 09:53 | EDDOCDS ---
Physician Documentation [facility] Name: Edin Machado Age: 56 yrs Sex: Male : 1960 Arrival Date: 10/27/2016 Time: 06:34 Bed I2 / M2 Private MD: Jordan Dos Santos Disposition: 10/27/16 07:23 Discharged to Home/Self Care. Impression: Other chronic pain - due to multilevel degenerative disc disease. - Condition is Stable. - Discharge Instructions: Chronic Pain. - Medication Reconciliation, Local Pharmacy Hours form. - Follow up: Pedro Ramirez; When: Today; Reason: Recheck today's complaints, Continuance of care. - Problem is chronic. - Symptoms are unchanged. - Notes: please obtainreferral for pain management from your neurosurgery office. Historical: - Allergies: Motrinfever; - Home Meds: 1. Cardizem 240 mg Oral 1 tab daily 2. lisinopril 40 mg Oral tab 1 tab once daily 3. lithium carbonate 300 mg Oral cap daily 4. prednisone 20 mg Oral tab 3 tab once daily 5. simvastatin 40 mg Oral tab 1 tab once daily 6. Wellbutrin XL 300 mg Oral Tb24 1 tab once daily 7. Zoloft 100 mg Oral tab 1 tab once daily 8. Percocet 5-325 mg Oral tab 2 tabs every 4-6 hours (Last dose: 10/27/2016 01:00) 9. Valium 5 mg Oral tab 1 tab 3 times per day (Last dose: 10/26/2016 14:00) - PMHx: CAD; Chronic Back pain; Depression; herniated discs L3,4, C1,2; Hypertension; infection to buttocks; Kidney stones; - PSHx: kidney stone removal; Appendectomy; surgery for wound infection; - Social history: Smoking status: Patient states was never smoker of tobacco. No barriers to communication noted, The patient speaks fluent Yoruba, Speaks appropriately for age. - Family history: Not pertinent. - : The pt / caregiver states he / she is not on anticoagulants. Home medication list is obtained from the patient. - Exposure Risk Screening:: None identified. Vital Signs: 10/27 06:47 BP 145 / 85; Pulse 108; Resp 16; Temp 98.8(T); Pulse Ox 98% on R/A; Weight 113.4 kg / cz 250 lbs; Height 5 ft. 10 in. (177.80 cm); 07:50 BP 121 / 74; Pulse 99; Resp 20; Temp 98.0; Pulse Ox 98% ; Pain 8/10; jam1 06:47 Body Mass Index 35.87 (113.40 kg, 177.80 cm) cz MDM: 07:22 Dilaudid - HYDROmorphone 0.5 mg IM once ordered. ar2 07:50 Financial registration complete. lg 07:50 [facility] Payment Agreement was scanned into [employer] and attached to record. lg 12:56 T-Sheet-- Draft Copy was scanned into [employer] and attached to record. gb Administered Medications: 07:22 CANCELLED (Other Intervention Used): Dilaudid - HYDROmorphone 1 mg IM once ar2 07:31 Drug: Dilaudid - HYDROmorphone 0.5 mg [hydromorphone 1 mg/mL injection syringe (0.5 kcs mL)] Route: IM; Site: right deltoid; Signatures: Estelita Treviño RN RN Griffin Nixon RN RN cz Dolores Romo, Reg Reg gb Perla Gates, Reg Reg lg Steven Costa, MALICK PAMeet ar2 The chart was reviewed and I authenticate all verbal orders and agree with the evaluation and treatment provided.Corrections: (The following items were deleted from the chart) 07:22 07:19 Dilaudid - HYDROmorphone 1 mg IM once ordered. ar2 ar2 Attachments: 07:50 [facility] Payment Agreement lg 12:56 T-Sheet-- Draft Copy gb Chart Complete MTDD
--- NOTE | 2016-10-29 09:53 | EDDOCDS ---
Physician Documentation [facility] Name: Edin Machado Age: 56 yrs Sex: Male : 1960 Arrival Date: 10/27/2016 Time: 06:34 Bed I2 / M2 Private MD: Jordan Dos Santos Disposition: 10/27/16 07:23 Discharged to Home/Self Care. Impression: Other chronic pain - due to multilevel degenerative disc disease. - Condition is Stable. - Discharge Instructions: Chronic Pain. - Medication Reconciliation, Local Pharmacy Hours form. - Follow up: Pedro Ramirez; When: Today; Reason: Recheck today's complaints, Continuance of care. - Problem is chronic. - Symptoms are unchanged. - Notes: please obtainreferral for pain management from your neurosurgery office. Historical: - Allergies: Motrinfever; - Home Meds: 1. Cardizem 240 mg Oral 1 tab daily 2. lisinopril 40 mg Oral tab 1 tab once daily 3. lithium carbonate 300 mg Oral cap daily 4. prednisone 20 mg Oral tab 3 tab once daily 5. simvastatin 40 mg Oral tab 1 tab once daily 6. Wellbutrin XL 300 mg Oral Tb24 1 tab once daily 7. Zoloft 100 mg Oral tab 1 tab once daily 8. Percocet 5-325 mg Oral tab 2 tabs every 4-6 hours (Last dose: 10/27/2016 01:00) 9. Valium 5 mg Oral tab 1 tab 3 times per day (Last dose: 10/26/2016 14:00) - PMHx: CAD; Chronic Back pain; Depression; herniated discs L3,4, C1,2; Hypertension; infection to buttocks; Kidney stones; - PSHx: kidney stone removal; Appendectomy; surgery for wound infection; - Social history: Smoking status: Patient states was never smoker of tobacco. No barriers to communication noted, The patient speaks fluent Tajik, Speaks appropriately for age. - Family history: Not pertinent. - : The pt / caregiver states he / she is not on anticoagulants. Home medication list is obtained from the patient. - Exposure Risk Screening:: None identified. Vital Signs: 10/27 06:47 BP 145 / 85; Pulse 108; Resp 16; Temp 98.8(T); Pulse Ox 98% on R/A; Weight 113.4 kg / cz 250 lbs; Height 5 ft. 10 in. (177.80 cm); 07:50 BP 121 / 74; Pulse 99; Resp 20; Temp 98.0; Pulse Ox 98% ; Pain 8/10; jam1 06:47 Body Mass Index 35.87 (113.40 kg, 177.80 cm) cz MDM: 07:22 Dilaudid - HYDROmorphone 0.5 mg IM once ordered. ar2 07:50 Financial registration complete. lg 07:50 [facility] Payment Agreement was scanned into [employer] and attached to record. lg 12:56 T-Sheet-- Draft Copy was scanned into [employer] and attached to record. gb Administered Medications: 07:22 CANCELLED (Other Intervention Used): Dilaudid - HYDROmorphone 1 mg IM once ar2 07:31 Drug: Dilaudid - HYDROmorphone 0.5 mg [hydromorphone 1 mg/mL injection syringe (0.5 kcs mL)] Route: IM; Site: right deltoid; Signatures: Estelita rTeviño RN RN Griffin Nixon RN RN cz Dolores Romo, Reg Reg gb Perla Gates, Reg Reg lg Steven Costa, MALICK PAMeet ar2 The chart was reviewed and I authenticate all verbal orders and agree with the evaluation and treatment provided.Corrections: (The following items were deleted from the chart) 07:22 07:19 Dilaudid - HYDROmorphone 1 mg IM once ordered. ar2 ar2 Attachments: 07:50 [facility] Payment Agreement lg 12:56 T-Sheet-- Draft Copy gb Chart Complete MTDD
== END 2016-10-27 08:52 | disposition home or self-care (01) ==
LOC: M ED 06:34
DX: M50.21 Other cervical disc displacement, high cervical region (principal); G89.29 Other chronic pain; M51.26 Other intervertebral disc displacement, lumbar region; I10 Essential (primary) hypertension; I25.10 Atherosclerotic heart disease of native coronary artery without angina pectoris; F32.9 Major depressive disorder, single episode, unspecified; Z79.899 Other long term (current) drug therapy; Z79.52 Long term (current) use of systemic steroids; Z88.6 Allergy status to analgesic agent
CPT/HCPCS: 96372; 99283; J1170

== ENCOUNTER 2016-10-31 17:04 | Emergency (ER) | payer OTHER ==
[2016-10-31] MEDS ORDERED: HYDROmorphone HCL 1 MG/ML SYRINGE (J1170) As Ordered ONE (20:49)
[2016-10-31] MEDS ORDERED: ONDANSETRON 4 MG ORAL DISINTEGRATING TAB (S0181) As Ordered ONE (20:49)
--- NOTE | 2016-10-31 21:19 | EDDOCDS ---
Nurse's Notes [facility] Name: Edin Machado Age: 56 yrs Sex: Male : 1960 Arrival Date: 10/31/2016 Time: 17:04 Bed TR7 Private MD: Jordan Dos Santos Diagnosis: Radiculopathy, cervical region;Low back pain Presentation: 10/31 17:21 Presenting complaint: Patient states: Herniated discs that he was due to have surgery ld5 on 3 weeks ago. Surgery postponed due to finding herniated discs in neck. Presents to ER due to increasing pain. Adult Sepsis Screening: The patient does not have new or worsening altered mentation. Patient's respiratory rate is less than 22. Systolic blood pressure is greater than 100. Patient has a qSOFA score of 0- Negative Sepsis Screen. Suicide/Homicide risk assessment- the patient denies having any suicidal and/or homicidal ideations and does not present with any other emotional, behavioral or mental health complaints. 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 Transition of care: patient was not received from another setting of care. 17:21 Method Of Arrival: Walkin/Carried/Asstd ld5 17:21 Acuity: NEVIN Level 3 ld5 Triage Assessment: 17:25 General: Appears in no apparent distress. Pain: Location: back and neck Pain currently ld5 is 9 out of 10 on a pain scale. HIV screening NA for this visit Offered previously. Neurological: Level of Consciousness is awake, alert. Respiratory: Airway is patent Respiratory effort is even, unlabored. Musculoskeletal: Reports pain in back and neck. Historical: - Allergies: Motrinfever; - Home Meds: 1. Cardizem 240 mg Oral 1 tab daily 2. lisinopril 40 mg Oral tab 1 tab once daily 3. lithium carbonate 300 mg Oral cap daily 4. Percocet 5-325 mg Oral tab 2 tabs every 4-6 hours 5. simvastatin 40 mg Oral tab 1 tab once daily 6. Valium 5 mg Oral tab 1 tab 3 times per day 7. Wellbutrin XL 300 mg Oral Tb24 1 tab once daily 8. Zoloft 100 mg Oral tab 1 tab once daily - PMHx: CAD; Chronic Back pain; Depression; herniated discs L3,4, C1,2; Hypertension; infection to buttocks; Kidney stones; - PSHx: kidney stone removal; Appendectomy; surgery for wound infection; - Social history: Smoking status: Patient states former smoker of tobacco. No barriers to communication noted, The patient speaks fluent Latvian, Speaks appropriately for age. - Family history: Not pertinent. - : The pt / caregiver states he / she is not on anticoagulants. Home medication list is obtained from the patient, [employer] import data. - Exposure Risk Screening:: None identified. Screenin:55 Screening information is obtained from the patient. Fall risk: No risks identified. cz Assistance ADL's: requires no assistance with activities of daily living. Abuse/DV Screen: The patient / caregiver reports he/she is: not in a situation that causes fear, pain or injury. Nutritional screening: No deficits noted. home support is adequate. Assessment: 20:55 General: Appears in no apparent distress, pt here for his chronic pain to neck and back.cz Vital Signs: 17:09 BP 164 / 91 RA Sitting (auto/lg); Pulse 108 RA; Resp 18 S; Temp 99.4(O); Pulse Ox 99% mt4 on R/A; Weight 113.4 kg (R); Height 5 ft. 10 in. (177.80 cm) (R); Pain 9/10; 21:17 BP 164 / 99; Pulse 89; Resp 16; Temp 99.1(TE); Pulse Ox 100% on R/A; Pain 7/10; sew 17:09 Body Mass Index 35.87 (113.40 kg, 177.80 cm) pr4 Vitals: 17:09 Log In Time: October 31, 2016 at 17:04. pr4 ED Course: 17:08 Patient visited by Stefani Stroud. mt4 17:08 Patient moved to Waiting mt4 17:09 Jordan Dos Santos is Private Physician. mt4 17:11 Patient moved to Pre RCE mt4 17:23 Triage Initiated ld5 17:26 Patient visited by Kristen Middleton RN. ld5 20:23 Patient moved to Triage 2 sew 20:24 Marcus Lowry PA is PHCP. mo1 20:24 Lazaro Pang DO is Attending Physician. mo1 20:35 Patient visited by Marcus Lowry PA. mo1 20:47 Patient moved to PR2 / jf3 20:48 Jordan Dos Santos is Referral Physician. mo1 20:48 Marcus Barry is Referral Physician. mo1 20:55 The patient / caregiver is instructed regarding the plan of care and ED course. cz 20:55 No IV's were initiated during this patient's visit. No procedures done that require cz assistance. 21:17 Patient visited by Blanca Matamoros. sew 21:18 Patient moved to 7 cz Administered Medications: 20:55 Drug: Dilaudid - HYDROmorphone 1 mg [hydromorphone 1 mg/mL injection syringe (1 mL)] cz Route: IM; Site: right deltoid; 20:55 Drug: Ondansetron ODT 4 mg [ondansetron 4 mg disintegrating tablet (1 tabs)] Route: PO; cz Order Results: There are currently no results for this order. Outcome: 20:48 Discharge ordered by Provider. mo1 21:18 Discharge Assessment: Patient awake, alert and oriented x 3. No cognitive and/or cz functional deficits noted. Patient verbalized understanding of disposition instructions. patient administered narcotics - yes. Pt provided with safe discharge. The following High Risk Discharge criteria are identified: None. Discharged to home ambulatory, cab called for patient. Condition: improved. Discharge instructions given to patient, Instructed on discharge instructions, follow up and referral plans. Demonstrated understanding of instructions, Pt was receptive of discharge instructions/ teaching. No special radiology studies were completed. Property :Personal belongings accompany Pt. 21:19 Patient left the ED. cz Signatures: Griffin Dockery RN RN cz Stefani Stroud mt4 Kristen Middleton RN RN ld5 Blanca Matamoros Michael, PA PA mo1 James Mendez,RN RN jf3 MTDD
--- NOTE | 2016-10-31 21:19 | EDDOCDS ---
Physician Documentation [facility] Name: Edin Machado Age: 56 yrs Sex: Male : 1960 Arrival Date: 10/31/2016 Time: 17:04 Bed TR7 Private MD: Jordan Dos Santos Disposition: 10/31/16 20:48 Discharged to Home/Self Care. Impression: Radiculopathy, cervical region, Low back pain. - Condition is Stable. - Discharge Instructions: Back Pain, Adult, Cervical Radiculopathy. - Prescriptions for oxycodone 5 mg Oral Tablet - take 1 tablet by ORAL route every 4 hours As needed MDD: 6 tabs; 10 tablet. - Medication Reconciliation, Local Pharmacy Hours form. - Follow up: Jordan Dos Santos; When: Call to arrange an appointment; Reason: Recheck today's complaints, Continuance of care. Follow up: Marcus Barry; When: Call to arrange an appointment; Reason: Recheck today's complaints, Continuance of care. - Problem is an ongoing problem. - Symptoms are unchanged. Historical: - Allergies: Motrinfever; - Home Meds: 1. Cardizem 240 mg Oral 1 tab daily 2. lisinopril 40 mg Oral tab 1 tab once daily 3. lithium carbonate 300 mg Oral cap daily 4. Percocet 5-325 mg Oral tab 2 tabs every 4-6 hours 5. simvastatin 40 mg Oral tab 1 tab once daily 6. Valium 5 mg Oral tab 1 tab 3 times per day 7. Wellbutrin XL 300 mg Oral Tb24 1 tab once daily 8. Zoloft 100 mg Oral tab 1 tab once daily - PMHx: CAD; Chronic Back pain; Depression; herniated discs L3,4, C1,2; Hypertension; infection to buttocks; Kidney stones; - PSHx: kidney stone removal; Appendectomy; surgery for wound infection; - Social history: Smoking status: Patient states former smoker of tobacco. No barriers to communication noted, The patient speaks fluent Hong Konger, Speaks appropriately for age. - Family history: Not pertinent. - : The pt / caregiver states he / she is not on anticoagulants. Home medication list is obtained from the patient, [employer] import data. - Exposure Risk Screening:: None identified. Vital Signs: 10/31 17:09 BP 164 / 91 RA Sitting (auto/lg); Pulse 108 RA; Resp 18 S; Temp 99.4(O); Pulse Ox 99% mt4 on R/A; Weight 113.4 kg / 250 lbs (R); Height 5 ft. 10 in. (177.80 cm) (R); Pain 9/10; 21:17 BP 164 / 99; Pulse 89; Resp 16; Temp 99.1(TE); Pulse Ox 100% on R/A; Pain 7/10; sew 17:09 Body Mass Index 35.87 (113.40 kg, 177.80 cm) mt4 MDM: 20:46 Dilaudid - HYDROmorphone 1 mg IM once ordered. mo1 20:46 Ondansetron ODT Oral Disintegrating Tablet 4 mg PO once ordered. mo1 Administered Medications: 20:55 Drug: Dilaudid - HYDROmorphone 1 mg [hydromorphone 1 mg/mL injection syringe (1 mL)] cz Route: IM; Site: right deltoid; 20:55 Drug: Ondansetron ODT 4 mg [ondansetron 4 mg disintegrating tablet (1 tabs)] Route: PO; cz Signatures: Griffin Dockery, RN RN cz Kristen Middleton,ABELARDO RN ld5 Marcus Lowry PA PA mo1 MTDD
--- NOTE | 2016-11-02 22:20 | EDDOCDS ---
Physician Documentation [facility] Name: Edin Machado Age: 56 yrs Sex: Male : 1960 Arrival Date: 10/31/2016 Time: 17:04 Bed TR7 Private MD: Jordan Dos Santos Disposition: 10/31/16 20:48 Discharged to Home/Self Care. Impression: Radiculopathy, cervical region, Low back pain. - Condition is Stable. - Discharge Instructions: Back Pain, Adult, Cervical Radiculopathy. - Prescriptions for oxycodone 5 mg Oral Tablet - take 1 tablet by ORAL route every 4 hours As needed MDD: 6 tabs; 10 tablet. - Medication Reconciliation, Local Pharmacy Hours form. - Follow up: Jordan Dos Santos; When: Call to arrange an appointment; Reason: Recheck today's complaints, Continuance of care. Follow up: Marcus Barry; When: Call to arrange an appointment; Reason: Recheck today's complaints, Continuance of care. - Problem is an ongoing problem. - Symptoms are unchanged. Historical: - Allergies: Motrinfever; - Home Meds: 1. Cardizem 240 mg Oral 1 tab daily 2. lisinopril 40 mg Oral tab 1 tab once daily 3. lithium carbonate 300 mg Oral cap daily 4. Percocet 5-325 mg Oral tab 2 tabs every 4-6 hours 5. simvastatin 40 mg Oral tab 1 tab once daily 6. Valium 5 mg Oral tab 1 tab 3 times per day 7. Wellbutrin XL 300 mg Oral Tb24 1 tab once daily 8. Zoloft 100 mg Oral tab 1 tab once daily - PMHx: CAD; Chronic Back pain; Depression; herniated discs L3,4, C1,2; Hypertension; infection to buttocks; Kidney stones; - PSHx: kidney stone removal; Appendectomy; surgery for wound infection; - Social history: Smoking status: Patient states former smoker of tobacco. No barriers to communication noted, The patient speaks fluent Cuban, Speaks appropriately for age. - Family history: Not pertinent. - : The pt / caregiver states he / she is not on anticoagulants. Home medication list is obtained from the patient, [employer] import data. - Exposure Risk Screening:: None identified. Vital Signs: 10/31 17:09 BP 164 / 91 RA Sitting (auto/lg); Pulse 108 RA; Resp 18 S; Temp 99.4(O); Pulse Ox 99% mt4 on R/A; Weight 113.4 kg / 250 lbs (R); Height 5 ft. 10 in. (177.80 cm) (R); Pain 9/10; 21:17 BP 164 / 99; Pulse 89; Resp 16; Temp 99.1(TE); Pulse Ox 100% on R/A; Pain 7/10; sew 17:09 Body Mass Index 35.87 (113.40 kg, 177.80 cm) mt4 MDM: 20:46 Dilaudid - HYDROmorphone 1 mg IM once ordered. mo1 20:46 Ondansetron ODT Oral Disintegrating Tablet 4 mg PO once ordered. mo1 21:37 Financial registration complete. ks16 21:37 Undo -Financial registration. ks16 21:37 Financial registration complete. [facility] 21:38 [facility] Payment Agreement was scanned into [employer] and attached to record. [facility] 11/01 17:59 T-Sheet-- Draft Copy was scanned into [employer] and attached to record. klr Administered Medications: 10/31 20:55 Drug: Dilaudid - HYDROmorphone 1 mg [hydromorphone 1 mg/mL injection syringe (1 mL)] cz Route: IM; Site: right deltoid; 20:55 Drug: Ondansetron ODT 4 mg [ondansetron 4 mg disintegrating tablet (1 tabs)] Route: PO; cz Signatures: Griffin Dockery RN RN cz Dickerson, Laura, RN RN ld5 Marcus Lowry PA PA mo1 Aure Edwards, Reg Reg ks16 Dominique Osorio klr The chart was reviewed and I authenticate all verbal orders and agree with the evaluation and treatment provided.Attachments: 21:38 [facility] Payment Agreement [facility] 11/01 17:59 T-Sheet-- Draft Copy klr Chart Complete MTDD
--- NOTE | 2016-11-02 22:20 | EDDOCDS ---
Physician Documentation [facility] Name: Edin Machado Age: 56 yrs Sex: Male : 1960 Arrival Date: 10/31/2016 Time: 17:04 Bed TR7 Private MD: Jordan Dos Santos Disposition: 10/31/16 20:48 Discharged to Home/Self Care. Impression: Radiculopathy, cervical region, Low back pain. - Condition is Stable. - Discharge Instructions: Back Pain, Adult, Cervical Radiculopathy. - Prescriptions for oxycodone 5 mg Oral Tablet - take 1 tablet by ORAL route every 4 hours As needed MDD: 6 tabs; 10 tablet. - Medication Reconciliation, Local Pharmacy Hours form. - Follow up: Jordan Dos Santos; When: Call to arrange an appointment; Reason: Recheck today's complaints, Continuance of care. Follow up: Marcus Barry; When: Call to arrange an appointment; Reason: Recheck today's complaints, Continuance of care. - Problem is an ongoing problem. - Symptoms are unchanged. Historical: - Allergies: Motrinfever; - Home Meds: 1. Cardizem 240 mg Oral 1 tab daily 2. lisinopril 40 mg Oral tab 1 tab once daily 3. lithium carbonate 300 mg Oral cap daily 4. Percocet 5-325 mg Oral tab 2 tabs every 4-6 hours 5. simvastatin 40 mg Oral tab 1 tab once daily 6. Valium 5 mg Oral tab 1 tab 3 times per day 7. Wellbutrin XL 300 mg Oral Tb24 1 tab once daily 8. Zoloft 100 mg Oral tab 1 tab once daily - PMHx: CAD; Chronic Back pain; Depression; herniated discs L3,4, C1,2; Hypertension; infection to buttocks; Kidney stones; - PSHx: kidney stone removal; Appendectomy; surgery for wound infection; - Social history: Smoking status: Patient states former smoker of tobacco. No barriers to communication noted, The patient speaks fluent Monegasque, Speaks appropriately for age. - Family history: Not pertinent. - : The pt / caregiver states he / she is not on anticoagulants. Home medication list is obtained from the patient, [employer] import data. - Exposure Risk Screening:: None identified. Vital Signs: 10/31 17:09 BP 164 / 91 RA Sitting (auto/lg); Pulse 108 RA; Resp 18 S; Temp 99.4(O); Pulse Ox 99% mt4 on R/A; Weight 113.4 kg / 250 lbs (R); Height 5 ft. 10 in. (177.80 cm) (R); Pain 9/10; 21:17 BP 164 / 99; Pulse 89; Resp 16; Temp 99.1(TE); Pulse Ox 100% on R/A; Pain 7/10; sew 17:09 Body Mass Index 35.87 (113.40 kg, 177.80 cm) mt4 MDM: 20:46 Dilaudid - HYDROmorphone 1 mg IM once ordered. mo1 20:46 Ondansetron ODT Oral Disintegrating Tablet 4 mg PO once ordered. mo1 21:37 Financial registration complete. ks16 21:37 Undo -Financial registration. ks16 21:37 Financial registration complete. [facility] 21:38 [facility] Payment Agreement was scanned into [employer] and attached to record. [facility] 11/01 17:59 T-Sheet-- Draft Copy was scanned into [employer] and attached to record. klr Administered Medications: 10/31 20:55 Drug: Dilaudid - HYDROmorphone 1 mg [hydromorphone 1 mg/mL injection syringe (1 mL)] cz Route: IM; Site: right deltoid; 20:55 Drug: Ondansetron ODT 4 mg [ondansetron 4 mg disintegrating tablet (1 tabs)] Route: PO; cz Signatures: Griffin Dockery RN RN cz Dickerson, Laura, RN RN ld5 Marcus Lowry PA PA mo1 Aure Edwards, Reg Reg ks16 Dominique Osorio klr The chart was reviewed and I authenticate all verbal orders and agree with the evaluation and treatment provided.Attachments: 21:38 [facility] Payment Agreement [facility] 11/01 17:59 T-Sheet-- Draft Copy klr Chart Complete MTDD
--- NOTE | 2016-11-02 22:20 | EDDOCDS ---
Nurse's Notes [facility] Name: Edin Machado Age: 56 yrs Sex: Male : 1960 Arrival Date: 10/31/2016 Time: 17:04 Bed TR7 Private MD: Jordan Dos Santos Diagnosis: Radiculopathy, cervical region;Low back pain Presentation: 10/31 17:21 Presenting complaint: Patient states: Herniated discs that he was due to have surgery ld5 on 3 weeks ago. Surgery postponed due to finding herniated discs in neck. Presents to ER due to increasing pain. Adult Sepsis Screening: The patient does not have new or worsening altered mentation. Patient's respiratory rate is less than 22. Systolic blood pressure is greater than 100. Patient has a qSOFA score of 0- Negative Sepsis Screen. Suicide/Homicide risk assessment- the patient denies having any suicidal and/or homicidal ideations and does not present with any other emotional, behavioral or mental health complaints. 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 Transition of care: patient was not received from another setting of care. 17:21 Method Of Arrival: Walkin/Carried/Asstd ld5 17:21 Acuity: NEVIN Level 3 ld5 Triage Assessment: 17:25 General: Appears in no apparent distress. Pain: Location: back and neck Pain currently ld5 is 9 out of 10 on a pain scale. HIV screening NA for this visit Offered previously. Neurological: Level of Consciousness is awake, alert. Respiratory: Airway is patent Respiratory effort is even, unlabored. Musculoskeletal: Reports pain in back and neck. Historical: - Allergies: Motrinfever; - Home Meds: 1. Cardizem 240 mg Oral 1 tab daily 2. lisinopril 40 mg Oral tab 1 tab once daily 3. lithium carbonate 300 mg Oral cap daily 4. Percocet 5-325 mg Oral tab 2 tabs every 4-6 hours 5. simvastatin 40 mg Oral tab 1 tab once daily 6. Valium 5 mg Oral tab 1 tab 3 times per day 7. Wellbutrin XL 300 mg Oral Tb24 1 tab once daily 8. Zoloft 100 mg Oral tab 1 tab once daily - PMHx: CAD; Chronic Back pain; Depression; herniated discs L3,4, C1,2; Hypertension; infection to buttocks; Kidney stones; - PSHx: kidney stone removal; Appendectomy; surgery for wound infection; - Social history: Smoking status: Patient states former smoker of tobacco. No barriers to communication noted, The patient speaks fluent Lithuanian, Speaks appropriately for age. - Family history: Not pertinent. - : The pt / caregiver states he / she is not on anticoagulants. Home medication list is obtained from the patient, [employer] import data. - Exposure Risk Screening:: None identified. Screenin:55 Screening information is obtained from the patient. Fall risk: No risks identified. cz Assistance ADL's: requires no assistance with activities of daily living. Abuse/DV Screen: The patient / caregiver reports he/she is: not in a situation that causes fear, pain or injury. Nutritional screening: No deficits noted. home support is adequate. Assessment: 20:55 General: Appears in no apparent distress, pt here for his chronic pain to neck and back.cz Vital Signs: 17:09 BP 164 / 91 RA Sitting (auto/lg); Pulse 108 RA; Resp 18 S; Temp 99.4(O); Pulse Ox 99% mt4 on R/A; Weight 113.4 kg (R); Height 5 ft. 10 in. (177.80 cm) (R); Pain 9/10; 21:17 BP 164 / 99; Pulse 89; Resp 16; Temp 99.1(TE); Pulse Ox 100% on R/A; Pain 7/10; sew 17:09 Body Mass Index 35.87 (113.40 kg, 177.80 cm) ms4 Vitals: 17:09 Log In Time: October 31, 2016 at 17:04. ms4 ED Course: 17:08 Patient visited by Stefani Stroud. mt4 17:08 Patient moved to Waiting mt4 17:09 Jordan Dos Santos is Private Physician. mt4 17:11 Patient moved to Pre RCE mt4 17:23 Triage Initiated ld5 17:26 Patient visited by Kristen Middleton RN. ld5 20:23 Patient moved to Triage 2 sew 20:24 Marcus Lowry PA is PHCP. mo1 20:24 Lazaro Pang DO is Attending Physician. mo1 20:35 Patient visited by Marcus Lowry PA. mo1 20:47 Patient moved to PR2 / jf3 20:48 Jordan Dos Santos is Referral Physician. mo1 20:48 Marcus Barry is Referral Physician. mo1 20:55 The patient / caregiver is instructed regarding the plan of care and ED course. cz 20:55 No IV's were initiated during this patient's visit. No procedures done that require cz assistance. 21:17 Patient visited by Blanca Matamoros. sew 21:18 Patient moved to [facility] cz 21:38 [facility] Payment Agreement was scanned into [employer] and attached to record. ks16 11/01 17:59 T-Sheet-- Draft Copy was scanned into [employer] and attached to record. klr Administered Medications: 10/31 20:55 Drug: Dilaudid - HYDROmorphone 1 mg [hydromorphone 1 mg/mL injection syringe (1 mL)] cz Route: IM; Site: right deltoid; 20:55 Drug: Ondansetron ODT 4 mg [ondansetron 4 mg disintegrating tablet (1 tabs)] Route: PO; cz Order Results: There are currently no results for this order. Outcome: 20:48 Discharge ordered by Provider. mo1 21:18 Discharge Assessment: Patient awake, alert and oriented x 3. No cognitive and/or cz functional deficits noted. Patient verbalized understanding of disposition instructions. patient administered narcotics - yes. Pt provided with safe discharge. The following High Risk Discharge criteria are identified: None. Discharged to home ambulatory, cab called for patient. Condition: improved. Discharge instructions given to patient, Instructed on discharge instructions, follow up and referral plans. Demonstrated understanding of instructions, Pt was receptive of discharge instructions/ teaching. No special radiology studies were completed. Property :Personal belongings accompany Pt. 21:19 Patient left the ED. cz Signatures: Griffin Dockery, RN RN cz Stefani Stroud mt4 Kristen Middleton RN RN ld5 Blanca Matamoros Michael, PA PA mo1 James Mendez,RN RN jf3 Aure Edwards, Reg Reg ks16 Dominique Osorio klr Chart Complete MTDD
== END 2016-10-31 21:19 | disposition home or self-care (01) ==
LOC: M ED 17:04
DX: M54.12 Radiculopathy, cervical region (principal); M54.17 Radiculopathy, lumbosacral region; I10 Essential (primary) hypertension; I25.10 Atherosclerotic heart disease of native coronary artery without angina pectoris; M51.26 Other intervertebral disc displacement, lumbar region; M50.20 Other cervical disc displacement, unspecified cervical region; Z87.442 Personal history of urinary calculi; Z79.899 Other long term (current) drug therapy; Z88.6 Allergy status to analgesic agent; Z87.891 Personal history of nicotine dependence
CPT/HCPCS: 96372; 99283; J1170

== ENCOUNTER → 2016-11-13 | Outpatient (CLI) | payer OTHER ==
[~2016-11-13] MED LIST changes: +HYDR-2807 PO; +NEUR100C PO
[2016-11-13 16:40] LABS: MEAN CORPUSCULAR HEMOGLOBIN 29.1 pg (27.0-33.0); MEAN CORPUSCULAR HGB CONC 33.9 g/dl (32.0-36.5); MEAN CORPUSCULAR VOLUME 85.8 fl (80.0-96.0); WHITE BLOOD COUNT 6.5 K/mm3 (4.0-10.0)
[2016-11-13 16:46] LABS: INR 0.99
[2016-11-13 17:05] LABS: BASOPHILS 1 % (0-4); EOSINOPHILS 3 % (0-5)
[2016-11-13 17:18] LABS: ALBUMIN 3.9 GM/DL (3.2-5.2); ALBUMIN/GLOBULIN RATIO 1.05 (1.00-1.93); ALKALINE PHOSPHATASE 61 U/L (45-117); ALT/SGPT 25 U/L (12-78); ANION GAP 7 MEQ/L (8-16); AST/SGOT 19 U/L (15-37); BILIRUBIN,TOTAL 0.3 MG/DL (0.2-1.0); BLOOD UREA NITROGEN 14 MG/DL (7-18); CALCIUM LEVEL 8.6 MG/DL (8.5-10.1); CARBON DIOXIDE LEVEL 30 MEQ/L (21-32); CHLORIDE LEVEL 105 MEQ/L (98-107); CREATININE FOR GFR 1.11 MG/DL (0.70-1.30); GLOMERULAR FILTRATION RATE > 60.0 (>56); GLUCOSE, FASTING 85 MG/DL (70-105); POTASSIUM SERUM 3.7 MEQ/L (3.5-5.1); SODIUM LEVEL 142 MEQ/L (136-145); TOTAL PROTEIN 7.6 GM/DL (6.4-8.2)
== END ==
LOC: M LAB 15:49
PROVIDERS: ATTEND Neurological Surgery
DX: Z01.818 Encounter for other preprocedural examination (principal)

== ENCOUNTER → 2016-11-20 | Outpatient (CLI) | payer OTHER ==
--- NOTE | 2016-11-20 15:56 | ECGEPIP ---
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
== END ==
LOC: M EKG 15:02
PROVIDERS: ATTEND Anesthesiology
DX: R03.0 Elevated blood-pressure reading, without diagnosis of hypertension (principal)

== ENCOUNTER → 2016-11-24 | Day surgery (SDC) | payer OTHER ==
--- NOTE | 2016-11-23 12:31 | HPE ---
DATE OF ADMISSION: Mr. Machado is a pleasant 56-year-old gentleman who was seen in neurosurgical consultation initially for low back pain and lumbar herniated disc, that he started having neck pain that was radiating into his left arm and this was what was bothering him the most. We subsequently had a MRI of the cervical spine which showed a large C5-6 disc herniation to the left with nerve root cutoff as seen on the myelographic images. He has tried some conservative measures without any significant relief. He denies any bowel or bladder dysfunction. He wishes to proceed with anterior cervical diskectomy and fusion. PAST MEDICAL HISTORY: Significant for essential hypertension, low back pain, hypercholesteremia, anxiety, depression, asthma, a kidney cyst, posttraumatic stress disorder (PTSD), and migraine headaches. PAST SURGICAL HISTORY: Lithotripsy, colonoscopy, appendectomy. ALLERGIES: He states he is allergic to MOTRIN. CURRENT MEDICATIONS: - diltiazem 240 mg daily - lisinopril 40 mg daily - sertraline 100 mg at bedtime - simvastatin 40 mg daily - bupropion ER 150 mg twice a day - lithium carbonate 300 mg daily - Vicodin 10/325 every 4 hours as needed for pain REVIEW OF SYSTEMS: CONSTITUTIONAL: He reports activity change, appetite change, fatigue, unexplained weight loss. HEENT: He reports dental problems, eye redness and photophobia. RESPIRATORY: Reports asthma, wheezing and chest tightness. CARDIOVASCULAR: Reports chest pain, history of hypertension. GASTROINTESTINAL: Reports abdominal pain, anal bleeding, blood in stool. GENITOURINARY: Reports difficulty urinating, frequency and hematuria. MUSCULOSKELETAL: He reports neck pain, low back pain, joint pain, muscle pain, left arm pain. NEUROLOGIC: Reports dizziness, headaches and lightheaded. PSYCHIATRIC: Reports agitation, anxiety, depression, decreased concentration, sleep disturbances. PHYSICAL EXAMINATION: GENERAL APPEARANCE: No acute distress. Well-developed, well-nourished, overweight gentleman. HEENT: Head is normocephalic, atraumatic. Pupils are equal, round, reactive to light. Extraocular movements full and conjugate. RESPIRATORY: Symmetrical rise and fall of his chest. Positive bronchovesicular breath sounds. No wheezes, rales or rhonchi. CARDIAC: Regular rate and rhythm. No murmurs. No rubs or gallops. ABDOMEN: Positive bowel sounds, soft, nontender, no masses, no guarding. MUSCULOSKELETAL/NEUROLOGIC EXAMINATION: Speech is clear and fluent. Smile symmetrical. Tongue midline. Hearing is grossly intact to finger rub bilaterally. Good shoulder shrug bilaterally. No pronator drift. He has good strength in his bilateral biceps, triceps, deltoid and manager agency strength at 5/5. Quadriceps, hamstring, gastrocnemius, anterior tibialis, iliopsoas are 5/5. Reflexes upper and lower extremities normoactive, symmetrical, no pathologic reflexes. Gait and balance normal. Romberg negative. He is alert and oriented times three. Judgment and insight is good. Mood and affect appropriate to setting. ASSESSMENT: C5-6 disc herniation with radiculopathy, neck pain. PLAN: The patient is going to undergo anterior cervical diskectomy and fusion C5-6. Nature of the procedure was explained to him by Dr. Barry and by myself. Risk of surgery also thoroughly explained, including but not limited to, no improvement in condition, worse condition, infection, bleeding, heart attack, stroke, dying, nerve damage, paralysis, loss of bowel and bladder function, quadriplegic, worsening condition, spinal fluid leak, failure of surgery, need for more surgery, , no guarantees made. The patient verbally acknowledges he understands the risks and wishes to proceed with surgical intervention. The patient will have preoperative medical clearance from his primary care provider.
[~2016-11-24] VITALS: Ht 177.8 cm; Wt 112.5 kg
[~2016-11-24] MED LIST changes: +BACITRACIN PWD 50,000 UNITS VIAL As Ordered ONE; +BUPR300T34 PO; +CEFUROXIME SODIUM 1.5 GM in D5W MINI-BAG PLUS 50 ML IV ONE; +GABA600T PO; +HYDR-3719 PO; +LIDOCAINE 2% INJ 100 MG/5 ML SDV (FOR ANES.) As Ordered ONE; +LITH300C PO; +LR 1,000 ML IV SCH; +MIDAZOLAM INJ 2 MG/2 ML VIAL (J2250) As Ordered ONE; +ONDANSETRON 4MG/2ML VIAL (J2405) As Ordered ONE; +PROPOFOL 200 MG/20 ML VIAL As Ordered ONE; +REMIFENTANIL 1MG 3ML VIAL As Ordered ONE; +ROCURONIUM BROMIDE 50 MG/5 ML VIAL As Ordered ONE; +SERT-138 PO; +THROMBIN SOLN 20,000 UNITS KIT As Ordered ONE; +dexameTHASONE 4 MG/ML 1ML VIAL (J1100) IV ONE; +fentaNYL 100 MCG/2 ML INJECTION (J3010) As Ordered ONE
[2016-11-24 10:18] VITALS: BP 148/94
== END ==
LOC: M SDC 09:09
PROVIDERS: ATTEND Neurological Surgery
DX: Z53.8 Procedure and treatment not carried out for other reasons (principal); M54.2 Cervicalgia

== ENCOUNTER 2016-11-26 06:52 | Inpatient (IN) | payer OTHER ==
[~2016-11-26] VITALS: Ht 177.8 cm; Wt 120.4 kg
[~2016-11-26 06:52] MED LIST changes: -BACITRACIN PWD 50,000 UNITS VIAL As Ordered ONE; -BUPR300T34 PO; -CEFUROXIME SODIUM 1.5 GM in D5W MINI-BAG PLUS 50 ML IV ONE; -DILT240C5 PO; +DILT240C75 PO; -GABA600T PO; -HYDR-3719 PO; -LIDOCAINE 2% INJ 100 MG/5 ML SDV (FOR ANES.) As Ordered ONE; -LITH300C PO; -LR 1,000 ML IV SCH; -MIDAZOLAM INJ 2 MG/2 ML VIAL (J2250) As Ordered ONE; -ONDANSETRON 4MG/2ML VIAL (J2405) As Ordered ONE; -PROPOFOL 200 MG/20 ML VIAL As Ordered ONE; -REMIFENTANIL 1MG 3ML VIAL As Ordered ONE; -ROCURONIUM BROMIDE 50 MG/5 ML VIAL As Ordered ONE; -SERT-138 PO; -SERT-141 PO; +SERT50TA PO; -THROMBIN SOLN 20,000 UNITS KIT As Ordered ONE; -dexameTHASONE 4 MG/ML 1ML VIAL (J1100) IV ONE; -fentaNYL 100 MCG/2 ML INJECTION (J3010) As Ordered ONE
[2016-11-26] MEDS ORDERED: HYDROmorphone HCL 1 MG/ML SYRINGE (J1170) As Ordered ONE (07:44)
[2016-11-26] MEDS ORDERED: ONDANSETRON 4 MG ORAL DISINTEGRATING TAB (S0181) As Ordered ONE (07:45)
[2016-11-26] MEDS ORDERED: SERT-138 PO (11:15)
[2016-11-26] MEDS ORDERED: DIAZ5TAB PO (11:16)
[2016-11-26] MEDS ORDERED: BUPR300T34 PO (11:21)
[2016-11-26] MEDS ORDERED: LITH300C PO (11:21)
[2016-11-26] MEDS ORDERED: HYDR-3719 PO (11:21)
[2016-11-26] MEDS ORDERED: GABA600T PO (11:21)
[2016-11-26] MEDS ORDERED: LISI40TAB PO (11:21)
[2016-11-26 11:44] LABS: MEAN CORPUSCULAR HEMOGLOBIN 29.5 pg (27.0-33.0); MEAN CORPUSCULAR HGB CONC 34.4 g/dl (32.0-36.5); MEAN CORPUSCULAR VOLUME 85.9 fl (80.0-96.0); RED CELL DISTRIBUTION WIDTH 13.3 % (11.5-14.5); WHITE BLOOD COUNT 6.8 K/mm3 (4.0-10.0)
[2016-11-26 12:01] LABS: CONTROL LINE INT CTR LINE PRESENT; METHADONE URINE NEGATIVE (NEGATIVE); TRICYCLIC ANTIDEPRESS URINE NEGATIVE (NEGATIVE)
[2016-11-26 12:11] LABS: ALBUMIN 3.9 GM/DL (3.2-5.2); ALBUMIN/GLOBULIN RATIO 1.05 (1.00-1.93); ALKALINE PHOSPHATASE 66 U/L (45-117); ALT/SGPT 28 U/L (12-78); ANION GAP 8 MEQ/L (8-16); AST/SGOT 15 U/L (15-37); BILIRUBIN,DIRECT < 0.1 MG/DL (0.0-0.2); BILIRUBIN,TOTAL 0.3 MG/DL (0.2-1.0); BLOOD UREA NITROGEN 15 MG/DL (7-18); CALCIUM LEVEL 8.9 MG/DL (8.5-10.1); CARBON DIOXIDE LEVEL 29 MEQ/L (21-32); CHLORIDE LEVEL 106 MEQ/L (98-107); CREATININE FOR GFR 1.28 MG/DL (0.70-1.30); GLOMERULAR FILTRATION RATE > 60.0 (>56); GLUCOSE, FASTING 108 MG/DL (70-105); POTASSIUM SERUM 4.3 MEQ/L (3.5-5.1); SODIUM LEVEL 143 MEQ/L (136-145); TOTAL PROTEIN 7.6 GM/DL (6.4-8.2)
[2016-11-26] MEDS ORDERED: NORCO, ANEXSIA 5/325MG TABLET (HYDROcodone/ACETAMINOPHEN) As Ordered ONE (12:46)
[2016-11-26] MEDS ORDERED: GABAPENTIN 100 MG CAP As Ordered ONE (12:47)
--- NOTE | 2016-11-26 15:39 | EDDOCDS ---
Physician Documentation [facility] Name: Edin Machado Age: 56 yrs Sex: Male : 1960 Arrival Date: 11/26/2016 Time: 06:52 Bed U[facility] MD: Jordan Dos Santos Disposition: 11/26/16 13:35 Hospitalization ordered by Kimberly Parra for Inpatient Admission. Preliminary diagnosis are Major depressive disorder, recurrent, Other chronic pain - neck and back due to degenerative disc disease. - Bed requested for Admit. - Status is Inpatient Admission. kcs - Condition is Stable. - Problem is new. - Symptoms are unchanged. Historical: - Allergies: Motrinfever; - Home Meds: 1. Cardizem 240 mg Oral 1 tab daily (Last dose: 11/25/2016) 2. lisinopril 40 mg Oral tab 1 tab once daily (Last dose: 11/25/2016) 3. lithium carbonate 300 mg Oral cap daily (Last dose: 11/25/2016) 4. simvastatin 40 mg Oral tab 1 tab once daily (Last dose: 11/25/2016) 5. Valium 5 mg Oral tab 1 tab 3 times per day (Last dose: 11/25/2016 12:00) 6. Zoloft 100 mg Oral tab 1 tab once daily (Last dose: 11/25/2016) 7. Celina 10/300 MG Oral tab 1 tab every 4 hours PRN (Last dose: 11/25/2016 21:00) 8. Wellbutrin XL 150 mg oral Tb24 BID (Last dose: 11/25/2016) 9. gabapentin 200 MG Oral tab BID 10. methocarbamol 500 mg Oral tab Q8HPRN 11. trazodone 100 mg oral tab nightly - PMHx: CAD; Chronic Back pain; Depression; herniated discs L3,4, C1,2; Hypertension; infection to buttocks; Kidney stones; - PSHx: kidney stone removal; Appendectomy; surgery for wound infection; - Social history: Smoking status: Patient states former smoker of tobacco. No barriers to communication noted, The patient speaks fluent Lao, Speaks appropriately for age. - Family history: Not pertinent. - : The pt / caregiver states he / she is not on anticoagulants. Home medication list is obtained from [employer] import data. - Exposure Risk Screening:: None identified. Vital Signs: 11/26 07:04 BP 162 / 79; Pulse 88; Resp 18; Temp 97.3(O); Pulse Ox 99% on R/A; Weight 113.4 kg / ck1 250 lbs; Height 5 ft. 10 in. (177.80 cm); Pain 8/10; 09:37 Pain 7/10; kr3 10:33 BP 126 / 74; Pulse 81; Resp 18; Temp 98.5(T); Pulse Ox 99% on R/A; Pain 7/10; jjr 15:33 BP 114 / 53; Pulse 92; Resp 20; Temp 96.9(O); Pulse Ox 98% on R/A; Pain 6/10; kcs 07:04 Body Mass Index 35.87 (113.40 kg, 177.80 cm) ck1 MDM: 07:27 Consult PFS/PSA/Automatic Typewriter Inspector: Psychiatric Concerns ordered. ar2 07:42 Dilaudid - HYDROmorphone 1 mg IM once ordered. ar2 07:42 Ondansetron ODT Oral Disintegrating Tablet 4 mg PO once ordered. ar2 07:43 Consult PFS/PSA/Automatic Typewriter Inspector: Psychiatric Concerns complete. kr3 08:38 [facility] Payment Agreement was scanned into [email or web address] and attached to record. jp5 08:38 Financial registration complete. jp5 09:19 Consult PFS/PSA/Automatic Typewriter Inspector: Patient's case requires discussion with on-call ar2 Psychiatrist ordered. 09:19 PSA/PFS to call Nursing Associate Doctor, to enter patient data on [place] Safe Act if patient ar2 involuntarily admitted or transferred for SI or HI ordered. 09:19 Confirm accurate psychiatric medication list and times of last dosage ordered. ar2 09:19 Detain Pt Until Medically/PFS Cleared ordered. ar2 09:20 Acetaminophen Level Ordered. EDMS 09:20 Basic Metabolic Profile Ordered. EDMS 09:21 Complete Blood Count Ordered. EDMS 09:21 Drug Eval Toxicology ED Only Ordered. EDMS 09:21 Ethyl Alcohol (ethanol) Ordered. EDMS 09:21 Liver Profile Ordered. EDMS 09:21 Salicylate Level Ordered. EDMS 09:21 Thyroid Stimulating Hormone Ordered. EDMS 09:21 BED REQUEST+ADM ordered. EDMS 12:00 REGULAR DIET PLASTIC OBRIEN+DIET ordered. EDMS 12:23 Acetaminophen Level Reviewed. ar2 12:23 Basic Metabolic Profile Reviewed. ar2 12:23 Complete Blood Count Reviewed. ar2 12:23 Drug Eval Toxicology ED Only Reviewed. ar2 12:23 Salicylate Level Reviewed. ar2 12:23 Ethyl Alcohol (ethanol) Reviewed. ar2 12:23 Liver Profile Reviewed. ar2 12:23 Thyroid Stimulating Hormone Reviewed. ar2 12:41 Gabapentin 200 mg PO once ordered. ar2 12:41 HYDROcodone-acetaminophen 5 mg-325 mg 2 tabs PO once ordered. ar2 14:11 Admit to IMHU: ordered. EDMS 14:11 REGULAR DIET ordered. EDMS 14:18 [facility] Legal paperwork was scanned into [email or web address] and attached to record. ml4 14:48 T-Sheet-- Draft Copy was scanned into [email or web address] and attached to record. gb Administered Medications: 08:36 Drug: Dilaudid - HYDROmorphone 1 mg [hydromorphone 1 mg/mL injection syringe (1 mL)] kr3 Route: IM; Site: left deltoid; 09:37 Follow up: Pain 04/19 Adult; Response: Pain is decreased kr3 08:36 Drug: Ondansetron ODT 4 mg [ondansetron 4 mg disintegrating tablet (1 tabs)] Route: PO; kr3 12:56 Drug: Gabapentin 200 mg [gabapentin 100 mg capsule (2 caps)] Route: PO; kcs 12:56 Drug: HYDROcodone-acetaminophen 2 tabs [hydrocodone 5 mg-acetaminophen 325 mg tablet (2 kcs tabs)] Route: PO; Signatures: Dispatcher MedHo EDEstelita Dotson RN RN kcs Dolores Romo, Reg Reg gb Jenifer JjRN RN ck1 Melony Durham RN RN kr3 Stacey Bowles, PSA PSA ml4 Izzy Wilson RN RN nuryr Steven Costa PA-C PA-C ar2 Naomi Cagle jp5 The chart was reviewed and I authenticate all verbal orders and agree with the evaluation and treatment provided.Corrections: (The following items were deleted from the chart) 10:56 07:09 Home Meds: Celina 10-325 mg Oral tab 1 tab every 4 hours; PRN (Last Dose: jjr 11/25/2016 21:00); 10:56 07:09 Home Meds: Wellbutrin XL 300 mg Oral Tb24 1 tab once daily (Last Dose: jjgertrudis 11/25/2016); ck 12:17 10:56 Home Meds: trazodone 50 mg Oral tab NIGHTLY; jjr kcs Attachments: 08:38 [facility] Payment Agreement jp5 14:48 T-Sheet-- Draft Copy gb MTDD
--- NOTE | 2016-11-26 15:39 | EDDOCDS ---
Nurse's Notes [facility] Name: Edin Machado Age: 56 yrs Sex: Male : 1960 Arrival Date: 11/26/2016 Time: 06:52 Bed [facility] Private MD: Jordan Dos Santos Diagnosis: Major depressive disorder, recurrent;Other chronic pain-neck and back due to degenerative disc disease Presentation: 11/26 07:03 Presenting complaint: Patient states: Ongoing neck and back pain. No known injury. ck1 Reports multiple herniated discs. Risk Factors No acute neurological deficit is noted. Adult Sepsis Screening: The patient does not have new or worsening altered mentation. Patient's respiratory rate is less than 22. Systolic blood pressure is greater than 100. Patient has a qSOFA score of 0- Negative Sepsis Screen. Suicide/Homicide risk assessment- the patient denies having any suicidal and/or homicidal ideations and does not present with any other emotional, behavioral or mental health complaints. 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 Transition of care: patient was not received from another setting of care. 07:03 Acuity: NEVIN Level 4 ck1 07:03 Method Of Arrival: Walkin/Carried/Asstd ck1 Triage Assessment: 07:09 General: Appears in no apparent distress, comfortable, Behavior is appropriate for age, ck1 cooperative. Pain: Location: back and neck Pain currently is 8 out of 10 on a pain scale. HIV screening NA for this visit Offered previously. Neurological: Level of Consciousness is awake, alert, obeys commands, Oriented to person, place, time. Respiratory: Respiratory effort is unlabored, Respiratory pattern is regular, symmetrical. GI: No deficits noted. Derm: Skin is intact, is healthy with good turgor, Skin is pink, warm & dry. Musculoskeletal: Range of motion intact in all extremities. Historical: - Allergies: Motrinfever; - Home Meds: 1. Cardizem 240 mg Oral 1 tab daily (Last dose: 11/25/2016) 2. lisinopril 40 mg Oral tab 1 tab once daily (Last dose: 11/25/2016) 3. lithium carbonate 300 mg Oral cap daily (Last dose: 11/25/2016) 4. simvastatin 40 mg Oral tab 1 tab once daily (Last dose: 11/25/2016) 5. Valium 5 mg Oral tab 1 tab 3 times per day (Last dose: 11/25/2016 12:00) 6. Zoloft 100 mg Oral tab 1 tab once daily (Last dose: 11/25/2016) 7. Phoenix 10/300 MG Oral tab 1 tab every 4 hours PRN (Last dose: 11/25/2016 21:00) 8. Wellbutrin XL 150 mg oral Tb24 BID (Last dose: 11/25/2016) 9. gabapentin 200 MG Oral tab BID 10. methocarbamol 500 mg Oral tab Q8HPRN 11. trazodone 100 mg oral tab nightly - PMHx: CAD; Chronic Back pain; Depression; herniated discs L3,4, C1,2; Hypertension; infection to buttocks; Kidney stones; - PSHx: kidney stone removal; Appendectomy; surgery for wound infection; - Social history: Smoking status: Patient states former smoker of tobacco. No barriers to communication noted, The patient speaks fluent Romanian, Speaks appropriately for age. - Family history: Not pertinent. - : The pt / caregiver states he / she is not on anticoagulants. Home medication list is obtained from [employer] import data. - Exposure Risk Screening:: None identified. Screenin:21 Screening information is obtained from the patient. Fall risk: No risks identified. kr3 Assistance ADL's: requires no assistance with activities of daily living. Abuse/DV Screen: The patient / caregiver reports he/she is: not in a situation that causes fear, pain or injury. Nutritional screening: No deficits noted. home support is adequate. 12:07 Advance Directives: Currently, there is no health care proxy. There is no active DNR kcs order. There is no living will. 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 Assessment: 07:21 General: Appears uncomfortable, Behavior is appropriate for age, cooperative. Pain: kr3 Location: neck and back. Neurological: Reports Back Pain. Respiratory: Respiratory effort is even, unlabored. Derm: Skin is normal. 08:37 Reassessment: Patient appears in no apparent distress at this time. General: Appears kr3 comfortable, Behavior is cooperative. Pain: Location: neck and back Pain currently is 8 out of 10 on a pain scale. 09:37 Reassessment: Patient appears in no apparent distress at this time. aware plan is for kr3 psych admission and is comfortable with this plan. 10:33 General: Appears in no apparent distress. Pain: Pain currently is 7 out of 10 on a pain jjr scale. Neurological: Level of Consciousness is awake, alert. Respiratory: Airway is patent Respiratory effort is even, unlabored, Respiratory pattern is regular. Derm: No deficits noted. 12:06 Reassessment: Patient has talked on the phone with his family. Pleasant, smiling and kcs cooperative. Denies any needs. Security observing.. 12:58 General: patient eating lunch. Security observing.. kcs 14:21 Reassessment: Patient resting quietly on stretcher - asked for crackers -given. No kcs further needs - has jensen viridiana. Pleasant and cooperative. Respirations easy. Security observing.. 15:24 Reassessment: Patient resting on stretcher - denies any needs. Pleasant and kcs cooperative. Security observing.. 15:33 Reassessment: Patient pleasant and cooperative. Still having his chronic pain in his kcs neck and back - improved since getting his Gabapentin and Phoenix.. General: Appears comfortable, obese, well developed, well nourished, well groomed, Behavior is cooperative, pleasant. Pain: Location: neck and back Pain currently is 6 out of 10 on a pain scale. Neurological: Level of Consciousness is awake, alert. Respiratory: Airway is patent Respiratory effort is even, unlabored, Respiratory pattern is regular, symmetrical. Derm: Skin is intact, is healthy with good turgor, Skin is dry, Skin is black. Mental Health Eval: 09:47 Mental health consult is initiated at 09:47. Status: The patient is not a ne bank sales and service manager or dependent. [facility] Behavioral Health: The patient is not an established patient of [facility]. Referral Information: Evaluation referral is generated by the patient himself / herself. The patient was referred for evaluation because Increasing depressive symptoms and SI. Subjective: The patients chief complaint is Pt states feelings of depression have been increasing for months along with some thoughts of self-harm. Today, pt has thoughts of OD on his medications. He cites a number of major stressors that have been ongoing for quite some time. Pt also has chronic back and neck pain and was scheduled for surgery on but that did not take place. Delusions are denied. Patient's mood is depressed, hopeless, Hallucinations are denied. 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 In the last few years pt and his family have faced numerous issues including and debilitating medical problems of a number of family members. At present pt is feeling he has "had enough" and began having fleeting SI that has become more intense. He has begun to consider taking an OD of his medications to kill himself. A few years ago pt also held a loaded gun and considered shooting himself. He says the gun has since been removed from his home. Pt appears depressed, tearful at times. Spoke with , who is supportive of pt receiving help. 09:50 Mental Health history: depression, Mental Health Admissions: None. Current Outpatient ca Mental Health Services: None. Current living environment is Family / Home Support: Resides in own apt with supportive . Patient presents to Emergency Department with the following symptoms within the past 2 weeks: anxiety, depressed mood, feelings of helplessness/hopelessness, sleep disturbance - erratic suicidal ideation with plan for pills. Substance abuse: Pt denies. Mental status exam: Patients appearance is appropriate, Patient's behavior is cooperative, Speech is normal. Affect is appropriate. Mood is anxious. depressed. Hallucinations are denied. Appetite is erratic Memory is good. Energy level is poor. Content of thought is Depressive Thought process is intact. Cognitive level is oriented to person, place, time and situation Patient's insight is good. Judgement is fair. 14:23 Disposition: Medically cleared for disposition by Дмитрий Jin MD Psychiatric Consult ca is performed by phone with Dr Kimberly Parra. [facility] Admission Criteria: The patient is experiencing suicidal ideation. The patient displays symptoms of severe psychiatric disorder resulting in disordered behavior and significant interference with his / her ability to maintain self care. Psychomotor Retardation. The patient requires continuous observation and/or control to protect self, others or property. The patient's care requires a multi-modal treatment plan under close supervision and coordination due to the complexity and severity of the patient's symptoms. The patient requires administration and monitoring of psychoactive medications by skilled medical providers due to the side effects of the psychoactive medications or significant dosage adjustments. Legal Status: Patient's legal status will be Emergency admission: [place] Safe Act: [place] Safe Act is applicable to this patient. The patient poses a risk to self or other and the [facility] has been notified. He/She will enter the patient's data. DSM-V Differential Diagnosis: Unspecified Depressive Disorder (F32.9). Awaiting: transfer to [facility]. Vital Signs: 07:04 BP 162 / 79; Pulse 88; Resp 18; Temp 97.3(O); Pulse Ox 99% on R/A; Weight 113.4 kg; ck1 Height 5 ft. 10 in. (177.80 cm); Pain 8/10; 09:37 Pain 7/10; kr3 10:33 BP 126 / 74; Pulse 81; Resp 18; Temp 98.5(T); Pulse Ox 99% on R/A; Pain 7/10; jjr 15:33 BP 114 / 53; Pulse 92; Resp 20; Temp 96.9(O); Pulse Ox 98% on R/A; Pain 6/10; kcs 07:04 Body Mass Index 35.87 (113.40 kg, 177.80 cm) ck Vitals: 07:04 Log In Time: November 26, 2016 at 06:52. 1 ED Course: 06:54 Patient visited by Jose Pereira Reg. pm4 06:54 Jordan Dos Santos is Private Physician. pm4 06:54 Patient moved to Waiting pm4 07:04 Triage Initiated ck1 07:11 Patient moved to I5 / M5 ck1 07:13 [facility] ar2 07:13 Дмитрий Jin MD is Attending Physician. ar2 07:13 Patient visited by Steven Costa PA-C. ar2 07:21 The patient / caregiver is instructed regarding the plan of care and ED course. Patient kr3 has correct armband on for positive identification. Bed in low position. Call light in reach. Side rails up X 1. 07:43 No IV's were initiated during this patient's visit. No procedures done that require kr3 assistance. 07:44 Patient visited by Melony Durham RN. kr3 08:36 Patient visited by Melony Durham RN. kr3 08:38 [facility] Payment Agreement was scanned into [employer] and attached to record. jp5 09:08 Patient visited by Florence Easley RN. mk4 09:36 Patient moved to [facility] pjf 09:37 Pt greeted and oriented to ED. Patient advised of names of staff involved in care, pjf location of call herrera, wait times and NPO status. Placed in psych safe attire. Security observing. Property removed, secured in belongings bag- Placed in locker #4. Door closed. Noise minimized. Visitors limited. Report received from rn / hope - psych. triage level #2, ?si, cooperative \\T\\ this time. Psych Safety Check: Location: Psych Room. 09:38 Patient visited by Jose Jarrell Security Aide. pjf 10:04 Patient visited by Jose Jarrell Security Aide. pjf 10:16 Patient visited by Jose Jarrell Security Aide. pjf 10:29 Patient visited by Jose Jarrell Security Aide. pjf 10:34 Patient visited by Izzy Wilson RN. jjr 10:50 Patient visited by Jose Jarrell Security Aide. pjf 11:11 Patient visited by Jose Jarrell Security Aide. pjf 11:25 Patient visited by Jose Jarrell Security Aide. pjf 11:45 Drug Eval Toxicology ED Only Sent. kcs 11:46 Patient visited by Jose Jarrell Security Aide. pjf 12:25 Patient visited by Jose Jarrell Security Aide. pjf 12:43 Patient visited by Jose Jarrell Security Aide. pjf 13:05 Patient visited by Jose Jarrell Security Aide. pjf 13:22 Patient visited by Jose Jarrell Security Aide. pjf 13:33 Kimberly Parra is Hospitalizing Provider. ar2 13:34 Patient visited by Jose Jarrell Security Aide. pjf 13:45 Psych Safety Check: Location: Psych Room. Visual Assessment: Cooperative. pjf 13:59 Patient visited by Jose Jarrell Security Aide. pjf 14:14 Patient visited by Jose Jarrell Security Aide. pjf 14:18 [facility] Legal paperwork was scanned into [employer] and attached to record. ml4 14:34 Patient visited by Jose Jarrell Security Aide. pjf 14:48 T-Sheet-- Draft Copy was scanned into [employer] and attached to record. gb 14:51 Patient visited by Jose Jarrell Security Aide. kleber 15:04 Patient visited by Jose Jarrell Security Aide. kleber Administered Medications: 08:36 Drug: Dilaudid - HYDROmorphone 1 mg [hydromorphone 1 mg/mL injection syringe (1 mL)] kr3 Route: IM; Site: left deltoid; 09:37 Follow up: Pain 04/19 Adult; Response: Pain is decreased kr3 08:36 Drug: Ondansetron ODT 4 mg [ondansetron 4 mg disintegrating tablet (1 tabs)] Route: PO; kr3 12:56 Drug: Gabapentin 200 mg [gabapentin 100 mg capsule (2 caps)] Route: PO; kcs 12:56 Drug: HYDROcodone-acetaminophen 2 tabs [hydrocodone 5 mg-acetaminophen 325 mg tablet (2 kcs tabs)] Route: PO; Attachments: 14:18 [facility] Legal paperwork ml4 Order Results: Lab Order: Acetaminophen Level; SPEC'M 11/26/16 11:33 Test: ACETAMINOPHEN LEVEL; Value: < 2.0; Range: 10.0-30.0; Abnormal: Below low normal; Units: UG/ML; Status: F Lab Order: Basic Metabolic Profile; SPEC'M 11/26/16 11:33 Test: GLUCOSE, FASTING; Value: 108; Range: 70-105; Abnormal: Above high normal; Units: MG/DL; Status: F Test: BLOOD UREA NITROGEN; Value: 15; Range: 7-18; Units: MG/DL; Status: F Test: CREATININE FOR GFR; Value: 1.28; Range: 0.70-1.30; Units: MG/DL; Status: F Test: GLOMERULAR FILTRATION RATE; Value: > 60.0; Range: >56; Status: F Test: SODIUM LEVEL; Value: 143; Range: 136-145; Units: MEQ/L; Status: F Test: POTASSIUM SERUM; Value: 4.3; Range: 3.5-5.1; Units: MEQ/L; Status: F Test: CHLORIDE LEVEL; Value: 106; Range: 98-107; Units: MEQ/L; Status: F Test: CARBON DIOXIDE LEVEL; Value: 29; Range: 21-32; Units: MEQ/L; Status: F Test: ANION GAP; Value: 8; Range: 8-16; Units: MEQ/L; Status: F Test: CALCIUM LEVEL; Value: 8.9; Range: 8.5-10.1; Units: MG/DL; Status: F Test Note: ; Units are mL/min/1.73 m2 Chronic Kidney Disease Staging per NKF: Stage I & II GFR >=60 Normal to Mildly Decreased Stage III GFR 30-59 Moderately Decreased Stage IV GFR 15-29 Severely Decreased Stage V GFR <15 Very Little GFR Left ESRD GFR <15 on HOSPICE EXECUTIVE DIRECTOR Lab Order: Complete Blood Count; SPEC'M 11/26/16 11:33 Test: WHITE BLOOD COUNT; Value: 6.8; Range: 4.0-10.0; Units: K/mm3; Status: F Test: RED BLOOD COUNT; Value: 4.38; Range: 4.30-6.10; Units: M/mm3; Status: F Test: HEMOGLOBIN; Value: 12.9; Range: 14.0-18.0; Abnormal: Below low normal; Units: g/dl; Status: F Test: HEMATOCRIT; Value: 37.6; Range: 42.0-52.0; Abnormal: Below low normal; Units: %; Status: F Test: MEAN CORPUSCULAR VOLUME; Value: 85.9; Range: 80.0-96.0; Units: fl; Status: F Test: MEAN CORPUSCULAR HEMOGLOBIN; Value: 29.5; Range: 27.0-33.0; Units: pg; Status: F Test: MEAN CORPUSCULAR HGB CONC; Value: 34.4; Range: 32.0-36.5; Units: g/dl; Status: F Test: RED CELL DISTRIBUTION WIDTH; Value: 13.3; Range: 11.5-14.5; Units: %; Status: F Test: PLATELET COUNT, AUTOMATED; Value: 248; Range: 150-450; Units: k/mm3; Status: F Lab Order: Drug Eval Toxicology ED Only; SPEC'M 11/26/16 11:42 Test: AMPHETAMINES LEVEL URINE; Value: NEGATIVE; Range: NEGATIVE; Status: F Test: BARBITURATES URINE; Value: NEGATIVE; Range: NEGATIVE; Status: F Test: BENZODIAZEPINES URINE; Value: POSITIVE; Range: NEGATIVE; Abnormal: Above high normal; Status: F Test: CANNABINOIDS URINE; Value: NEGATIVE; Range: NEGATIVE; Status: F Test: COCAINE METABOLITE URINE; Value: NEGATIVE; Range: NEGATIVE; Status: F Test: METHADONE URINE; Value: NEGATIVE; Range: NEGATIVE; Status: F Test: OPIATES URINE; Value: POSITIVE; Range: NEGATIVE; Abnormal: Above high normal; Status: F Test: TRICYCLIC ANTIDEPRESS URINE; Value: NEGATIVE; Range: NEGATIVE; Status: F Test Note: ; ALL PRESUMPTIVE POSITIVE FINDINGS ARE UNCONFIRMED NORMAL VALUES THRESHOLD IN NG/ML AMPHETAMINES 1000 METHAMPHETAMINES 1000 BARBITURATES 300 BENZODIAZEPINES 300 CANNABINOIDS (THC) 50 COCAINE METABOLITE 300 METHADONE 300 OPIATES 300 PHENCYCLIDINE 25 TRICYCLIC ANTIDEPRESSANTS 1000 RESULTS ARE FOR MEDICAL PURPOSES ONLY. ALL URINE SPECIMENS WILL BE SAVED FOR 3 DAYS. IF CONFIRMATION OF A PRESUMPTIVE POSTIVE SCREEN RESULT IS DESIRED, CALL CHEMISTRY ([phone]) AND REQUEST URINE TO BE SENT TO REFERENCE LAB. FOR A LIST OF CLOSELY RELATED COMPOUNDS PLEASE CALL THE LAB. Lab Order: Ethyl Alcohol (ethanol); SPEC'M 11/26/16 11:33 Test: ETHYL ALCOHOL (ETHANOL); Value: < 0.003; Range: 0.000-0.010; Units: %; Status: F Lab Order: Liver Profile; SPEC'M 11/26/16 11:33 Test: AST/SGOT; Value: 15; Range: 15-37; Units: U/L; Status: F Test: ALT/SGPT; Value: 28; Range: 12-78; Units: U/L; Status: F Test: ALKALINE PHOSPHATASE; Value: 66; Range: 45-117; Units: U/L; Status: F Test: BILIRUBIN,TOTAL; Value: 0.3; Range: 0.2-1.0; Units: MG/DL; Status: F Test: BILIRUBIN,DIRECT; Value: < 0.1; Range: 0.0-0.2; Units: MG/DL; Status: F Test: TOTAL PROTEIN; Value: 7.6; Range: 6.4-8.2; Units: GM/DL; Status: F Test: ALBUMIN; Value: 3.9; Range: 3.2-5.2; Units: GM/DL; Status: F Test: ALBUMIN/GLOBULIN RATIO; Value: 1.05; Range: 1.00-1.93; Status: F Lab Order: Salicylate Level; SPEC'M 11/26/16 11:33 Test: SALICYLATE LEVEL; Value: < 1.7; Range: 5.0-30.0; Abnormal: Below low normal; Units: MG/DL; Status: F Lab Order: Thyroid Stimulating Hormone; SPEC'M 11/26/16 11:33 Test: THYROID STIMULATING HORMONE; Value: 1.170; Range: 0.358-3.740; Units: uIU/ML; Status: F Outcome: 07:43 The following High Risk Discharge criteria are identified: Yes, patient spoke with baljeet ARNETT. 07:44 No special radiology studies were completed. kr3 13:35 Decision to Hospitalize by Provider. ar2 15:33 Discharge Assessment: Patient awake, alert and oriented x 3. No cognitive and/or kcs functional deficits noted. Patient verbalized understanding of disposition instructions. Patient awake and alert. patient administered narcotics - yes. Patient was admitted to the hospital or transferred to another facility. Admitted to Psych accompanied by tech, via wheelchair, with chart. Condition: stable. 15:37 Patient left the ED. kcs Signatures: Estelita Treviño RN RN Nicol Ann, [facility]OPE PSA ca Dolores Romo, Reg Reg gb Jose Jarrell, Security Aide [facility] Jenifer Jj RN RN ck1 Melony Durham RN RN kr3 Stacey Bowles, PSA PSA ml4 Izzy Wilson RN RN jjr Robertshaw, Aaron, PA-C PA-Niru ar2 Florence Easley RN RN mk4 Price, Jennalee jp5 Jose Pereira, Reg Reg pm4 Corrections: (The following items were deleted from the chart) 07:11 07:03 Suicide/Homicide risk assessment- the patient denies having any suicidal and/or ck1 homicidal ideations and does not present with any other emotional, behavioral or mental health complaints ck1 10:56 07:09 Home Meds: Phoenix 10-325 mg Oral tab 1 tab every 4 hours; PRN (Last Dose: jjr 11/25/2016 21:00); ck 10:56 07:09 Home Meds: Wellbutrin XL 300 mg Oral Tb24 1 tab once daily (Last Dose: jjgertrudis 11/25/2016); ck1 11:05 09:47 Subjective: The patients chief complaint is Pt states feelings of depression have ca been increasing for months along with. ca 12:17 10:56 Home Meds: trazodone 50 mg Oral tab NIGHTLY; jjr kcs MTDD
[2016-11-26 16:06] VITALS: BP 137/80
[2016-11-26] MEDS ORDERED: MOM 30ML SUSPENSION UDC PO PRN (18:00)
[2016-11-26] MEDS ORDERED: traZODone 100 MG TAB PO PRN (18:00)
[2016-11-26] MEDS ORDERED: MAALOX 30 ML SUSP *UDC PO PRN (18:00)
[2016-11-26] MEDS: NORCO, ANEXSIA 5/325MG TABLET (HYDROcodone/ACETAMINOPHEN) PO PRN ×2 (18:48→22:46)
[2016-11-26] MEDS: SIMVASTATIN 40 MG TAB PO SCH (21:00)
[2016-11-26] MEDS: diazePAM 5 MG TAB PO SCH (21:00)
[2016-11-26] MEDS: LITHIUM CARBONATE 300 MG CAP PO SCH (21:00)
[2016-11-26] MEDS: GABAPENTIN 100 MG CAP PO SCH (21:00)
[2016-11-27] MEDS: NORCO, ANEXSIA 5/325MG TABLET (HYDROcodone/ACETAMINOPHEN) PO PRN ×5 (05:59→22:33)
[2016-11-27 06:24] VITALS: BP 156/98
[2016-11-27] MEDS ORDERED: buPROPion 75 MG TAB PO SCH (09:00)
[2016-11-27] MEDS ORDERED: buPROPion **XL** TABLET 150MG (WELLBUTRIN XL) PO SCH (09:00)
--- NOTE | 2016-11-27 09:45 | HPEPDOC ---
[facility] History & Physical History and Physical DATE OF ADMISSION: Nov 26, 2016 at 15:53 CHIEF COMPLAINT: "Wild, it's a culminating of things ". HISTORY OF THE PRESENT ILLNESS: Patient states "For 20 years I responded to majority of tragedies in [place]. That was from [id number]. I also had a mom with dementia diagnosed in 2007, she in 2009. My dad had a stroke in 2008 and diagnosed with cancer. He in October 2011. I have also been caring for my brother since 1999. He has mental illness and a brain injury. So it spent all of that, my is suffering, it's just overwhelming stress ". PAST PSYCHIATRIC HISTORY: Patient denies prior hospital admits ER visits for psychiatric or mental health issues. Patient states he has been prescribed medications by Dr. Gunderson?? Patient had felt his medications were working well until yesterday when he start to to have increasing suicidal thoughts. Patient states his thoughts became focused around suicide by overdose. Patient felt that this point he needed to come to the hospital to be evaluated. ALLERGIES: Please see below. HOME MEDICATIONS: Per record as follows: -Bupropion 150 mg by mouth every morning for depression -Zoloft 100 mg by mouth daily for depression -[place] 300 mg by mouth daily at bedtime for mood stabilization -Valium 5 mg 3 times a day for anxiety -Trazodone 100 mg by mouth daily at bedtime when necessary for insomnia -Gabapentin 200 mg by mouth twice a day for mood stabilization Of note Patient is on [place] every 4 hours when necessary when his pain is dad and 8-10/ 10 scale PAST MEDICAL HISTORY: Patient states he has chronic pain from herniated disks at L3 and L4 and C1 and C2. Patient prior records signify CAD, HTN, kidney stones. FAMILY PSYCHIATRIC HISTORY: Patient states his brother has schizophrenia and bipolar disorder. Patient reports a daughter also has schizophrenia and substance abuse issues. SOCIAL HISTORY: Patient is in his second marriage of 19 years. Patient has 4 children of his own one son who was murdered in 2002. 3 daughters of which one is okay, one has schizophrenia, the other daughter has aplastic anemia and needs a bone marrow transplant. SUBSTANCE ABUSE HISTORY: Patient denies. LEGAL HISTORY: Patient denies other than traffic violations. VITAL SIGNS: Temperature 96.8, pulse 82, respiratory rate 18, blood pressure 156 /98. LABORATORY DATA: Please see below. UDS on admit was positive for opiates and benzos. Barbiturate results are pending. MENTAL STATUS EXAMINATION: Patient is a 56 year old male, who is very talkative, pleasant and cooperative. Patient is overweight, of average build. Patient is currently wearing hospital scrubs and T-shirt. Grooming is average. Patient is noted to be ambulating with a cane with a steady gait. Patient states he has neck and back issues which she was supposed to have surgery for this past Wednesday. Patient states he was not able to have that surgery because of a provider issue. It is unknown if patient is delusional about this and several other information pieces that he reports as facts. Speech: Is verbose, circumstantial, flight of ideas, tangential, is of normal rate, volume, and articulation, and is coherent and spontaneous. Language: Intact. Thought processes: Unknown if clear, not goal-directed. Thought content: Unknown if logical, rational tangential. Abstract reasoning, and computation: Adequate. Associations: Unknown, appeared to be loose, tangential and circumstantial. Description of abnormal or psychotic thoughts: Patient denies hallucinations, paranoia, delusions, obsessions or compulsions. Patient also currently denies homicidal or suicidal ideation, preoccupations. Patient states he has had absolutely no thoughts of suicide since his admission. Patient denies having a plan for suicide, however gets upset that the word suicide is used. 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 Judgment: Limited. Insight: Very limited. Oriented to: Time, person, place and surroundings. Recent and remote memory: Patient reports "yeah I have a problem with my immediate memory ", patient denies any problems or short or long-term memory. Attention span and concentration: Fair. Language: Normal. Fund of knowledge: Adequate. Mood: Patient states "feeling good being able to talk ". Patient then reports his mind is racing and that he only takes Valium 1 time a day. Patient appears to be somewhat delusional unless facts can be corroborated. Patient also refers to some of what he does in and narcissistic way. Patient states currently his baseline depression on a good day at home is 5-6/10, anxiety as 5/10. Patient reports now depression and anxiety is a 1/10. Affect: Appropriate, flat possibly delusional, may be rational and logical effects can be validated patient does not appear to be depressed, anxious or sad. DIAGNOSES: 1. Major depressive disorder, recurrent, moderate. 2. PTSD. 3. Chronic pain disorder. ASSESSMENT: Patient appears grandiose and verbose. Patient appears to be using a vocabulary above his understanding. Patient is currently laughing and smiling appropriately, does not appear to be depressed, sad, anxious. Patient does state he is relieved to be here. Patient feels he'll be able to rest now that he is here. Patient is very defensive when talking about his pain medicine or benzodiazepines. Provider discussed in detail chemical reactions and how meds work together or not. Provider is not able to ascertain at this time how much patient is a able to process. Will continue to evaluate patient's symptoms, comments, information discussed. Provider will be looking for collaborative information to validate what patient is saying. PROBLEM LIST: 1. Altered thoughts and perceptions, unless information can be validated. 2. Risk for suicide. 3. Ineffective coping. INITIAL MANAGEMENT PLAN: Patient to be continually assessed and evaluated while on unit. Patient will be expected to be out of his room as much as possible. Patient to eat meals in lounge. Patient to engage appropriately with peers and staff. Patient be weaned off Valium per Dr. Mason's recommendation. Maintain safety precautions. Patient to attend groups and participate in unit programming and activities to develop effective coping strategies. Patient to be engaged in discharge planning process to ensure safe and effective discharge plan. Patient to follow-up with a PCP upon discharge. Patient to start therapy and meet with a psychiatrist or nurse practitioner for medication management services. Patient to consider substance abuse support group upon discharge. ESTIMATED LENGTH OF STAY: 7-10 DAYS. TIME SPENT EVALUATING AND COORDINATING INITIAL CARE: 50 minutes. Laboratory Data 24H Labs Laboratory Tests 2 11/26/16 11:33: Acetaminophen Level < 2.0L, Aspartate Amino Transf (AST/SGOT) 15, Alanine Aminotransferase (ALT/SGPT) 28, Alkaline Phosphatase 66, Total Bilirubin 0.3, Direct Bilirubin < 0.1, Albumin 3.9, Albumin/Globulin Ratio 1.05, Anion Gap 8, Calcium Level 8.9, Ethyl Alcohol Level < 0.003, Glomerular Filtration Rate > 60.0, Salicylates Level < 1.7L, Thyroid Stimulating Hormone (TSH) 1.170, Total Protein 7.6 11/26/16 11:42: Urine Amphetamines Screen NEGATIVE, Urine Benzodiazepines Screen POSITIVEH, Urine Opiates Screen POSITIVEH, Urine Barbiturates Screen NEGATIVE, Urine Cannabinoids Screen NEGATIVE, Urine Cocaine Metabolite Screen NEGATIVE, Urine Methadone Screen NEGATIVE, Urine Tricyclic Antidepressants NEGATIVE CBC/BMP Laboratory Tests 11/26/16 11:33 Red Blood Count 4.38, Mean Corpuscular Volume 85.9, Mean Corpuscular Hemoglobin 29.5, Mean Corpuscular Hemoglobin Concent 34.4, Red Cell Distribution Width 13.3 Medications Scheduled Diltiazem HCl (Diltiazem Cd) 240 Mg Cap 240 MG PO DAILY (Reported) Gabapentin (Gabapentin) 300 Mg Cap 300 MG PO TID neuropathic pain, mood swings Lisinopril (Lisinopril) 40 Mg Tab 40 MG PO DAILY (Reported) [place] Carbonate ([place] Carbonate) 300 Mg Cap 300 MG PO QHS (Reported) Lorazepam (Ativan) 0.5 Mg Tab 0.5 MG PO TID anxiety and tense muscles Simvastatin - High Dose (Simvastatin) 40 Mg Tab 40 MG PO DAILY (Reported) Scheduled PRN Diphenhydramine HCl (Benadryl Allergy) 25 Mg Cap 25 MG PO Q6HP PRN PRN PAIN OR DYSPNEA (Reported) Oxycodone Hcl (Oxycodone HCl) 15 Mg Tab 5 MG PO Q4HP PRN PRN PAIN OR FEVER ( Reported) Allergies Coded Allergies: Ibuprofen (Verified Adverse Reaction, Intermediate, HIGH FEVER, 07/26/13) Provider Note Provider Note ADDENDUM TO THIS NOTE: This patient's medical need for admission to the hospital is approved by Dr Meléndez, who is not assuming care of the patient during the hospital stay. The patient's initial evaluation, including the treatment plan and the patient's care in the hospital is assumed by Lorri Montes NP. LORRI MONTES NP Nov 27, 2016 09:45 Kimberly Parra Jan 13, 2017 14:56
[2016-11-27] MEDS: GABAPENTIN 100 MG CAP PO SCH ×3 (10:22→21:09)
[2016-11-27] MEDS: LISINOPRIL 40 MG TAB PO SCH (10:23)
[2016-11-27] MEDS: diazePAM 5 MG TAB PO SCH ×2 (10:24→21:10)
--- NOTE | 2016-11-27 11:37 | HPEPDOC ---
Medical History and Physical Date of Admission Nov 26, 2016 at 15:53 History and Physical PCP: Dr Dos Santos ATTENDING: Dr. John Saenz HPI: 56yoM admitted to [facility] for MDD, being medically examined today. Patient is known to have chronic neck pain and low back pain related to degenerative disc disease. He ambulates with the assistance of a cane. Neurosurgical consultation was completed previously with Dr. Barry, he was planned to undergo cervical discectomy and fusion C5-6 11/23/16 however the procedure was subsequently canceled. Denies any fevers, chills, weakness, fatigue, CHAVES, CP, SOB, cough, palpitations, abdominal pain, N/V/D or changes in bowel or bladder habits. PMHx: Chronic neck pain Chronic low back pain Chronic pain Hypertension Hyperlipidemia Depression History of kidney stone PSHX: Kidney stone removal Appendectomy Right trigger finger release SOCHX: Resides in: [place] Marital Status: Kids: 9, one child secondary to homicide Employment: Disabled Tobacco use: History of tobacco use, patient states quit 30 years ago ETOH: One glass of wine per month Illicit Drugs: Denies IV Drug Use: Denies Tattoos done unprofessionally: Denies FAMHX: Mother: , dementia Father: , renal cell carcinoma Siblings: 5 Alive, history of [place]. 8 half siblings unknown Children: Alive, history of aplastic anemia and schizophrenia ROS: As noted in HPI, otherwise 11pt ROS of systems reviewed and unremarkable PE: GEN: 56yoM, appears stated age. Well-nourished, well developed. No acute distress. Alert and oriented x 3. Pleasant, interactive. HEENT: Normocephalic, atraumatic. Pupils are equal, round, and reactive to light. Extraocular movements are intact. No nystagmus appreciated. Sclera are nonicteric. Conjunctiva without injection. Nose midline. Nasal turbinates without bogginess. EACs both patent BL. TMs both visualized and pérez with good cone of light, no bulging or erythema. No facial asymmetry. Moist mucous membranes. Dentition fair. Pharynx pink and moist, no cobblestoning. Neck supple , trachea midline. No lymphadenopathy or thyromegaly appreciated. CHEST: Regular rate and rhythm, +S1, +S2 LUNGS: Clear to auscultation bilaterally. No wheezes, rales, or rhonchi. Breathing appears symmetric and easy. Patient is speaking in full sentences. No accessory muscle use. ABD: Round, soft, non-tender, non-distended. +Bowel sounds throughout. No rebound or guarding. No costovertebral angle tenderness. EXT: Pulses 2+ bilaterally dorsalis pedis and radial. No lower extremity edema appreciated. SKIN: [place], dry, warm. Capillary refill <2sec. No rashes. NEURO: Alert and oriented x 3. Cranial nerves III-XII are intact. No focal deficits appreciated. Ambulates with the assistance of a cane. EK11/20/16 SINUS RHYTHM 77 bpm NONSPECIFIC T-WAVE ABNORMALITY Left axis deviation NO CHANGE FROM 10/17/16 A&P: 56yoM admitted to [facility] for MDD, being medically examined today 1. Psych. Plan per Psychiatry. EKG on file. 2. Hypertension. Continue Cardizem 240 mg daily, lisinopril 40 mg daily. 3. Borderline EKG. No cardiac signs or symptoms appreciated on exam, follow with PCP. 4. Follow up. No Primary Care Provider. Will attempt to establish PCP on discharge. 5. Hyperlipidemia. Continue Zocor 40 mg daily. 6. Chronic back pain/chronic neck pain/chronic pain. Request pain management consultation. Patient currently remains on [place] 5/325 2 tablets every 4 hours as needed. Gabapentin 200 mg by mouth twice a day. ISTOP is accessed Ref # [id number] indicating hydrocodone 10/325 quantity #162 dispensed 11/09/16. 7. Staff member present throughout exam, Cristofer cline. Vital Signs Vital Signs Label Value Date Time Patient Temperature 96.8 degrees F 11/27/16 06 Temperature Source Tympanic 11/27/16 0624 Pulse 82 11/27/16 0624 Respiratory Rate 18 bpm 11/27/16 0624 Blood Pressure Assessment 156/98 (117) 11/27/16 0624 Laboratory Data Labs 24H Laboratory Tests 2 11/26/16 11:33: Acetaminophen Level < 2.0L, Aspartate Amino Transf (AST/SGOT) 15, Alanine Aminotransferase (ALT/SGPT) 28, Alkaline Phosphatase 66, Total Bilirubin 0.3, Direct Bilirubin < 0.1, Albumin 3.9, Albumin/Globulin Ratio 1.05, Anion Gap 8, Calcium Level 8.9, Ethyl Alcohol Level < 0.003, Glomerular Filtration Rate > 60.0, Salicylates Level < 1.7L, Thyroid Stimulating Hormone (TSH) 1.170, Total Protein 7.6 11/26/16 11:42: Urine Amphetamines Screen NEGATIVE, Urine Benzodiazepines Screen POSITIVEH, Urine Opiates Screen POSITIVEH, Urine Barbiturates Screen NEGATIVE, Urine Cannabinoids Screen NEGATIVE, Urine Cocaine Metabolite Screen NEGATIVE, Urine Methadone Screen NEGATIVE, Urine Tricyclic Antidepressants NEGATIVE CBC/BMP Laboratory Tests 11/26/16 11:33 Red Blood Count 4.38, Mean Corpuscular Volume 85.9, Mean Corpuscular Hemoglobin 29.5, Mean Corpuscular Hemoglobin Concent 34.4, Red Cell Distribution Width 13.3 Home Medications Scheduled Bupropion HCl (Bupropion HCl Xl) 300 Mg Tab 300 MG PO DAILY Diazepam (Diazepam) 5 Mg Tab 5 MG PO TID Diltiazem HCl (Diltiazem Cd) 240 Mg Cap 240 MG PO DAILY Gabapentin (Gabapentin) 600 Mg Tab 200 MG PO BID pain Lisinopril (Lisinopril) 40 Mg Tab 40 MG PO DAILY [place] Carbonate ([place] Carbonate) 300 Mg Cap 300 MG PO QHS Sertraline HCl (Sertraline HCl) 100 Mg Tab 200 MG PO DAILY Simvastatin - High Dose (Simvastatin) 40 Mg Tab 40 MG PO DAILY Trazodone HCl (Trazodone HCl) 50 Mg Tab 100 MG PO QHS Scheduled PRN Acetaminophen/Hydrocodone (Hydrocodone/Acetaminophen 10-325 mg) 1 Tab Tab 1 TAB PO Q4H PRN PRN PAIN Allergies Coded Allergies: Ibuprofen (Verified Adverse Reaction, Intermediate, HIGH FEVER, 07/26/13) Estrellita Stapleton Nov 27, 2016 11:37
[2016-11-27 18:00] VITALS: BP 137/77
[2016-11-27] MEDS: SIMVASTATIN 40 MG TAB PO SCH (21:09)
[2016-11-27] MEDS: LITHIUM CARBONATE 300 MG CAP PO SCH (21:10)
[2016-11-27] MEDS: DULoxetine 20 MG CAP (CYMBALTA) PO SCH (21:10)
[2016-11-27] MEDS: traZODone 100 MG TAB PO SCH (22:25)
[2016-11-28] MEDS: NORCO, ANEXSIA 5/325MG TABLET (HYDROcodone/ACETAMINOPHEN) PO PRN ×5 (06:26→22:36)
[2016-11-28 06:44] VITALS: BP 122/76
[2016-11-28] MEDS: buPROPion 75 MG TAB PO SCH (09:12)
[2016-11-28] MEDS: GABAPENTIN 100 MG CAP PO SCH ×3 (09:12→20:59)
[2016-11-28] MEDS: LISINOPRIL 40 MG TAB PO SCH (09:13)
[2016-11-28] MEDS: diazePAM 5 MG TAB PO SCH ×2 (09:13→20:59)
[2016-11-28] MEDS: BACITRACIN OINT 30GM TOP SCH ×2 (11:42→19:59)
[2016-11-28] MEDS: [UNRECOGNIZED DRUG - OTHER] OU SCH ×2 (16:04→20:57)
--- NOTE | 2016-11-28 16:38 | EDDOCDS ---
Physician Documentation [facility] Name: Edin Machado Age: 56 yrs Sex: Male : 1960 Arrival Date: 11/26/2016 Time: 06:52 Bed U[facility] MD: Jordan Dos Santos Disposition: 11/26/16 13:35 Hospitalization ordered by Kimberly Parra for Inpatient Admission. Preliminary diagnosis are Major depressive disorder, recurrent, Other chronic pain - neck and back due to degenerative disc disease. - Bed requested for Admit. - Status is Inpatient Admission. kcs - Condition is Stable. - Problem is new. - Symptoms are unchanged. Historical: - Allergies: Motrinfever; - Home Meds: 1. Cardizem 240 mg Oral 1 tab daily (Last dose: 11/25/2016) 2. lisinopril 40 mg Oral tab 1 tab once daily (Last dose: 11/25/2016) 3. lithium carbonate 300 mg Oral cap daily (Last dose: 11/25/2016) 4. simvastatin 40 mg Oral tab 1 tab once daily (Last dose: 11/25/2016) 5. Valium 5 mg Oral tab 1 tab 3 times per day (Last dose: 11/25/2016 12:00) 6. Zoloft 100 mg Oral tab 1 tab once daily (Last dose: 11/25/2016) 7. [place] 10/300 MG Oral tab 1 tab every 4 hours PRN (Last dose: 11/25/2016 21:00) 8. Wellbutrin XL 150 mg oral Tb24 BID (Last dose: 11/25/2016) 9. gabapentin 200 MG Oral tab BID 10. methocarbamol 500 mg Oral tab Q8HPRN 11. trazodone 100 mg oral tab nightly - PMHx: CAD; Chronic Back pain; Depression; herniated discs L3,4, C1,2; Hypertension; infection to buttocks; Kidney stones; - PSHx: kidney stone removal; Appendectomy; surgery for wound infection; - Social history: Smoking status: Patient states former smoker of tobacco. No barriers to communication noted, The patient speaks fluent Romansh, Speaks appropriately for age. - Family history: Not pertinent. - : The pt / caregiver states he / she is not on anticoagulants. Home medication list is obtained from [employer] import data. - Exposure Risk Screening:: None identified. Vital Signs: 11/26 07:04 BP 162 / 79; Pulse 88; Resp 18; Temp 97.3(O); Pulse Ox 99% on R/A; Weight 113.4 kg / ck1 250 lbs; Height 5 ft. 10 in. (177.80 cm); Pain 8/10; 09:37 Pain 7/10; kr3 10:33 BP 126 / 74; Pulse 81; Resp 18; Temp 98.5(T); Pulse Ox 99% on R/A; Pain 7/10; jjr 15:33 BP 114 / 53; Pulse 92; Resp 20; Temp 96.9(O); Pulse Ox 98% on R/A; Pain 6/10; kcs 07:04 Body Mass Index 35.87 (113.40 kg, 177.80 cm) ck1 MDM: 07:27 Consult PFS/PSA/Switchman Supervisor: Psychiatric Concerns ordered. ar2 07:42 Dilaudid - HYDROmorphone 1 mg IM once ordered. ar2 07:42 Ondansetron ODT Oral Disintegrating Tablet 4 mg PO once ordered. ar2 07:43 Consult PFS/PSA/Switchman Supervisor: Psychiatric Concerns complete. kr3 08:38 [facility] Payment Agreement was scanned into [employer] and attached to record. jp5 08:38 Financial registration complete. jp5 09:19 Consult PFS/PSA/Switchman Supervisor: Patient's case requires discussion with on-call ar2 Psychiatrist ordered. 09:19 PSA/PFS to call Nursing Shot Blast Equipment Operator, to enter patient data on [place] Safe Act if patient ar2 involuntarily admitted or transferred for SI or HI ordered. 09:19 Confirm accurate psychiatric medication list and times of last dosage ordered. ar2 09:19 Detain Pt Until Medically/PFS Cleared ordered. ar2 09:20 Acetaminophen Level Ordered. EDMS 09:20 Basic Metabolic Profile Ordered. EDMS 09:21 Complete Blood Count Ordered. EDMS 09:21 Drug Eval Toxicology ED Only Ordered. EDMS 09:21 Ethyl Alcohol (ethanol) Ordered. EDMS 09:21 Liver Profile Ordered. EDMS 09:21 Salicylate Level Ordered. EDMS 09:21 Thyroid Stimulating Hormone Ordered. EDMS 09:21 BED REQUEST+ADM ordered. EDMS 12:00 REGULAR DIET PLASTIC OBRIEN+DIET ordered. EDMS 12:23 Acetaminophen Level Reviewed. ar2 12:23 Basic Metabolic Profile Reviewed. ar2 12:23 Complete Blood Count Reviewed. ar2 12:23 Drug Eval Toxicology ED Only Reviewed. ar2 12:23 Salicylate Level Reviewed. ar2 12:23 Ethyl Alcohol (ethanol) Reviewed. ar2 12:23 Liver Profile Reviewed. ar2 12:23 Thyroid Stimulating Hormone Reviewed. ar2 12:41 Gabapentin 200 mg PO once ordered. ar2 12:41 HYDROcodone-acetaminophen 5 mg-325 mg 2 tabs PO once ordered. ar2 14:11 Admit to IMHU: ordered. EDMS 14:11 REGULAR DIET ordered. EDMS 14:18 [facility] Legal paperwork was scanned into [employer] and attached to record. ml4 14:48 T-Sheet-- Draft Copy was scanned into [employer] and attached to record. gb Administered Medications: 08:36 Drug: Dilaudid - HYDROmorphone 1 mg [hydromorphone 1 mg/mL injection syringe (1 mL)] kr3 Route: IM; Site: left deltoid; 09:37 Follow up: Pain 04/19 Adult; Response: Pain is decreased kr3 08:36 Drug: Ondansetron ODT 4 mg [ondansetron 4 mg disintegrating tablet (1 tabs)] Route: PO; kr3 12:56 Drug: Gabapentin 200 mg [gabapentin 100 mg capsule (2 caps)] Route: PO; kcs 12:56 Drug: HYDROcodone-acetaminophen 2 tabs [hydrocodone 5 mg-acetaminophen 325 mg tablet (2 kcs tabs)] Route: PO; Signatures: Dispatcher MedHo EDEstelita Dotson RN RN kcs Dolores Romo, Reg Reg gb Jenifer JjRN RN ck1 Melony Durham RN RN kr3 Stacey Bowles, PSA PSA ml4 Izzy Wilson RN RN nuryr Steven Costa PA-C PA-C ar2 Naomi Cagle jp5 The chart was reviewed and I authenticate all verbal orders and agree with the evaluation and treatment provided.Corrections: (The following items were deleted from the chart) 10:56 07:09 Home Meds: [place] 10-325 mg Oral tab 1 tab every 4 hours; PRN (Last Dose: jjr 11/25/2016 21:00); 10:56 07:09 Home Meds: Wellbutrin XL 300 mg Oral Tb24 1 tab once daily (Last Dose: jjgertrudis 11/25/2016); ck 12:17 10:56 Home Meds: trazodone 50 mg Oral tab NIGHTLY; jjr kcs Attachments: 08:38 [facility] Payment Agreement jp5 14:48 T-Sheet-- Draft Copy gb Chart Complete MTDD
--- NOTE | 2016-11-28 16:38 | EDDOCDS ---
Nurse's Notes [facility] Name: Edin Machado Age: 56 yrs Sex: Male : 1960 Arrival Date: 11/26/2016 Time: 06:52 Bed [facility] Private MD: Jordan Dos Santos Diagnosis: Major depressive disorder, recurrent;Other chronic pain-neck and back due to degenerative disc disease Presentation: 11/26 07:03 Presenting complaint: Patient states: Ongoing neck and back pain. No known injury. ck1 Reports multiple herniated discs. Risk Factors No acute neurological deficit is noted. Adult Sepsis Screening: The patient does not have new or worsening altered mentation. Patient's respiratory rate is less than 22. Systolic blood pressure is greater than 100. Patient has a qSOFA score of 0- Negative Sepsis Screen. Suicide/Homicide risk assessment- the patient denies having any suicidal and/or homicidal ideations and does not present with any other emotional, behavioral or mental health complaints. Status: Patient is not a household appliances service technician or dependent. Transition of care: patient was not received from another setting of care. 07:03 Acuity: NEVIN Level 4 ck1 07:03 Method Of Arrival: Walkin/Carried/Asstd ck1 Triage Assessment: 07:09 General: Appears in no apparent distress, comfortable, Behavior is appropriate for age, ck1 cooperative. Pain: Location: back and neck Pain currently is 8 out of 10 on a pain scale. HIV screening NA for this visit Offered previously. Neurological: Level of Consciousness is awake, alert, obeys commands, Oriented to person, place, time. Respiratory: Respiratory effort is unlabored, Respiratory pattern is regular, symmetrical. GI: No deficits noted. Derm: Skin is intact, is healthy with good turgor, Skin is pink, warm & dry. Musculoskeletal: Range of motion intact in all extremities. Historical: - Allergies: Motrinfever; - Home Meds: 1. Cardizem 240 mg Oral 1 tab daily (Last dose: 11/25/2016) 2. lisinopril 40 mg Oral tab 1 tab once daily (Last dose: 11/25/2016) 3. lithium carbonate 300 mg Oral cap daily (Last dose: 11/25/2016) 4. simvastatin 40 mg Oral tab 1 tab once daily (Last dose: 11/25/2016) 5. Valium 5 mg Oral tab 1 tab 3 times per day (Last dose: 11/25/2016 12:00) 6. Zoloft 100 mg Oral tab 1 tab once daily (Last dose: 11/25/2016) 7. Hawthorne 10/300 MG Oral tab 1 tab every 4 hours PRN (Last dose: 11/25/2016 21:00) 8. Wellbutrin XL 150 mg oral Tb24 BID (Last dose: 11/25/2016) 9. gabapentin 200 MG Oral tab BID 10. methocarbamol 500 mg Oral tab Q8HPRN 11. trazodone 100 mg oral tab nightly - PMHx: CAD; Chronic Back pain; Depression; herniated discs L3,4, C1,2; Hypertension; infection to buttocks; Kidney stones; - PSHx: kidney stone removal; Appendectomy; surgery for wound infection; - Social history: Smoking status: Patient states former smoker of tobacco. No barriers to communication noted, The patient speaks fluent [place], Speaks appropriately for age. - Family history: Not pertinent. - : The pt / caregiver states he / she is not on anticoagulants. Home medication list is obtained from [employer] import data. - Exposure Risk Screening:: None identified. Screenin:21 Screening information is obtained from the patient. Fall risk: No risks identified. kr3 Assistance ADL's: requires no assistance with activities of daily living. Abuse/DV Screen: The patient / caregiver reports he/she is: not in a situation that causes fear, pain or injury. Nutritional screening: No deficits noted. home support is adequate. 12:07 Advance Directives: Currently, there is no health care proxy. There is no active DNR kcs order. There is no living will. There is no Power of Career Development Consultant. Assessment: 07:21 General: Appears uncomfortable, Behavior is appropriate for age, cooperative. Pain: kr3 Location: neck and back. Neurological: Reports Back Pain. Respiratory: Respiratory effort is even, unlabored. Derm: Skin is normal. 08:37 Reassessment: Patient appears in no apparent distress at this time. General: Appears kr3 comfortable, Behavior is cooperative. Pain: Location: neck and back Pain currently is 8 out of 10 on a pain scale. 09:37 Reassessment: Patient appears in no apparent distress at this time. aware plan is for kr3 psych admission and is comfortable with this plan. 10:33 General: Appears in no apparent distress. Pain: Pain currently is 7 out of 10 on a pain jjr scale. Neurological: Level of Consciousness is awake, alert. Respiratory: Airway is patent Respiratory effort is even, unlabored, Respiratory pattern is regular. Derm: No deficits noted. 12:06 Reassessment: Patient has talked on the phone with his family. Pleasant, smiling and kcs cooperative. Denies any needs. Security observing.. 12:58 General: patient eating lunch. Security observing.. kcs 14:21 Reassessment: Patient resting quietly on stretcher - asked for crackers -given. No kcs further needs - has jensen viridiana. Pleasant and cooperative. Respirations easy. Security observing.. 15:24 Reassessment: Patient resting on stretcher - denies any needs. Pleasant and kcs cooperative. Security observing.. 15:33 Reassessment: Patient pleasant and cooperative. Still having his chronic pain in his kcs neck and back - improved since getting his Gabapentin and Hawthorne.. General: Appears comfortable, obese, well developed, well nourished, well groomed, Behavior is cooperative, pleasant. Pain: Location: neck and back Pain currently is 6 out of 10 on a pain scale. Neurological: Level of Consciousness is awake, alert. Respiratory: Airway is patent Respiratory effort is even, unlabored, Respiratory pattern is regular, symmetrical. Derm: Skin is intact, is healthy with good turgor, Skin is dry, Skin is black. Mental Health Eval: 09:47 Mental health consult is initiated at 09:47. Status: The patient is not a [place] household appliances service technician or dependent. [facility] Behavioral Health: The patient is not an established patient of [facility] Behavioral Health. Referral Information: Evaluation referral is generated by the patient himself / herself. The patient was referred for evaluation because Increasing depressive symptoms and SI. Subjective: The patients chief complaint is Pt states feelings of depression have been increasing for months along with some thoughts of self-harm. Today, pt has thoughts of OD on his medications. He cites a number of major stressors that have been ongoing for quite some time. Pt also has chronic back and neck pain and was scheduled for surgery on but that did not take place. Delusions are denied. Patient's mood is depressed, hopeless, Hallucinations are denied. 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 He has ministered extensively in the [place] area. In the last few years pt and his family have faced numerous issues including and debilitating medical problems of a number of family members. At present pt is feeling he has "had enough" and began having fleeting SI that has become more intense. He has begun to consider taking an OD of his medications to kill himself. A few years ago pt also held a loaded gun and considered shooting himself. He says the gun has since been removed from his home. Pt appears depressed, tearful at times. Spoke with , who is supportive of pt receiving help. 09:50 Mental Health history: depression, Mental Health Admissions: None. Current Outpatient ca Mental Health Services: None. Current living environment is Family / Home Support: Resides in own apt with supportive . Patient presents to Emergency Department with the following symptoms within the past 2 weeks: anxiety, depressed mood, feelings of helplessness/hopelessness, sleep disturbance - erratic suicidal ideation with plan for pills. Substance abuse: Pt denies. Mental status exam: Patients appearance is appropriate, Patient's behavior is cooperative, Speech is normal. Affect is appropriate. Mood is anxious. depressed. Hallucinations are denied. Appetite is erratic Memory is good. Energy level is poor. Content of thought is Depressive Thought process is intact. Cognitive level is oriented to person, place, time and situation Patient's insight is good. Judgement is fair. 14:23 Disposition: Medically cleared for disposition by Дмитрий Jin MD Psychiatric Consult ca is performed by phone with Dr Kimberly Parra. [facility] Admission Criteria: The patient is experiencing suicidal ideation. The patient displays symptoms of severe psychiatric disorder resulting in disordered behavior and significant interference with his / her ability to maintain self care. Psychomotor Retardation. The patient requires continuous observation and/or control to protect self, others or property. The patient's care requires a multi-modal treatment plan under close supervision and coordination due to the complexity and severity of the patient's symptoms. The patient requires administration and monitoring of psychoactive medications by skilled medical providers due to the side effects of the psychoactive medications or significant dosage adjustments. Legal Status: Patient's legal status will be Emergency admission: [place] Safe Act: [place] Safe Act is applicable to this patient. The patient poses a risk to self or other and the Nursing Laser Engraver has been notified. He/She will enter the patient's data. DSM-V Differential Diagnosis: Unspecified Depressive Disorder (F32.9). Awaiting: transfer to [facility]. 18:28 Insurance Pre-Certification: approved by: Fransisca Admae Pt is approved for one day with ca review tomorrow, 11/27. A lawn care worker will call to follow up. Case # [id number]. Vital Signs: 07:04 BP 162 / 79; Pulse 88; Resp 18; Temp 97.3(O); Pulse Ox 99% on R/A; Weight 113.4 kg; ck1 Height 5 ft. 10 in. (177.80 cm); Pain 8/10; 09:37 Pain 7/10; kr3 10:33 BP 126 / 74; Pulse 81; Resp 18; Temp 98.5(T); Pulse Ox 99% on R/A; Pain 7/10; jjr 15:33 BP 114 / 53; Pulse 92; Resp 20; Temp 96.9(O); Pulse Ox 98% on R/A; Pain 6/10; kcs 07:04 Body Mass Index 35.87 (113.40 kg, 177.80 cm) ck1 Vitals: 07:04 Log In Time: November 26, 2016 at 06:52. ck1 ED Course: 06:54 Patient visited by Jose Pereira Reg. pm4 06:54 Jordan Dos Santos is Private Physician. pm4 06:54 Patient moved to Waiting pm4 07:04 Triage Initiated ck1 07:11 Patient moved to I5 / M5 ck1 07:13 [facility] ar2 07:13 Дмитрий Jin MD is Attending Physician. ar2 07:13 Patient visited by Steven Costa PA-C. ar2 07:21 The patient / caregiver is instructed regarding the plan of care and ED course. Patient kr3 has correct armband on for positive identification. Bed in low position. Call light in reach. Side rails up X 1. 07:43 No IV's were initiated during this patient's visit. No procedures done that require kr3 assistance. 07:44 Patient visited by Melony Durham RN. kr3 08:36 Patient visited by Meolny Durham RN. kr3 08:38 COUNTS INCLUDE 234 BEDS AT THE [facility] Payment Agreement was scanned into [employer] and attached to record. jp5 09:08 Patient visited by Florence Easley RN. mk4 09:36 Patient moved to [facility] pjf 09:37 Pt greeted and oriented to ED. Patient advised of names of staff involved in care, pjf location of call herrera, wait times and NPO status. Placed in psych safe attire. Security observing. Property removed, secured in belongings bag- Placed in locker #4. Door closed. Noise minimized. Visitors limited. Report received from rn / chris - psych. triage level #2, ?si, cooperative \\T\\ this time. Psych Safety Check: Location: Psych Room. 09:38 Patient visited by Jose Jarrell Security Aide. pjf 10:04 Patient visited by Jose Jarrell Security Aide. pjf 10:16 Patient visited by Jose Jarrell Security Aide. pjf 10:29 Patient visited by Jose Jarrell Security Aide. pjf 10:34 Patient visited by Izzy Wilson RN. jjr 10:50 Patient visited by Jose Jarrell Security Aide. pjf 11:11 Patient visited by Jose Jarrell Security Aide. pjf 11:25 Patient visited by Jose Jarrell Security Aide. pjf 11:45 Drug Eval Toxicology ED Only Sent. kcs 11:46 Patient visited by Jose Jarrell Security Aide. pjf 12:25 Patient visited by Jose Jarrell Security Aide. pjf 12:43 Patient visited by Jose Jarrell Security Aide. pjf 13:05 Patient visited by Jose Jarrell Security Aide. pjf 13:22 Patient visited by Jose Jarrell Security Aide. pjf 13:33 Kimberly Parra is Hospitalizing Provider. ar2 13:34 Patient visited by Jose Jarrell Security Aide. pjf 13:45 Psych Safety Check: Location: Psych Room. Visual Assessment: Cooperative. pjf 13:59 Patient visited by Jose Jarrell Security Aide. pjf 14:14 Patient visited by Jose Jarrell Security Aide. pjf 14:18 E Legal paperwork was scanned into [employer] and attached to record. ml4 14:34 Patient visited by Jose Jarrell Security Aide. pjf 14:48 T-Sheet-- Draft Copy was scanned into [employer] and attached to record. gb 14:51 Patient visited by Jose Jarrell Security Aide. pjf 15:04 Patient visited by Jose Jarrell Security Aide. pjf Administered Medications: 08:36 Drug: Dilaudid - HYDROmorphone 1 mg [hydromorphone 1 mg/mL injection syringe (1 mL)] kr3 Route: IM; Site: left deltoid; 09:37 Follow up: Pain 04/19 Adult; Response: Pain is decreased kr3 08:36 Drug: Ondansetron ODT 4 mg [ondansetron 4 mg disintegrating tablet (1 tabs)] Route: PO; kr3 12:56 Drug: Gabapentin 200 mg [gabapentin 100 mg capsule (2 caps)] Route: PO; kcs 12:56 Drug: HYDROcodone-acetaminophen 2 tabs [hydrocodone 5 mg-acetaminophen 325 mg tablet (2 kcs tabs)] Route: PO; Attachments: 14:18 E Legal paperwork ml4 Order Results: Lab Order: Acetaminophen Level; SPEC'M 11/26/16 11:33 Test: ACETAMINOPHEN LEVEL; Value: < 2.0; Range: 10.0-30.0; Abnormal: Below low normal; Units: UG/ML; Status: F Lab Order: Basic Metabolic Profile; SPEC'M 11/26/16 11:33 Test: GLUCOSE, FASTING; Value: 108; Range: 70-105; Abnormal: Above high normal; Units: MG/DL; Status: F Test: BLOOD UREA NITROGEN; Value: 15; Range: 7-18; Units: MG/DL; Status: F Test: CREATININE FOR GFR; Value: 1.28; Range: 0.70-1.30; Units: MG/DL; Status: F Test: GLOMERULAR FILTRATION RATE; Value: > 60.0; Range: >56; Status: F Test: SODIUM LEVEL; Value: 143; Range: 136-145; Units: MEQ/L; Status: F Test: POTASSIUM SERUM; Value: 4.3; Range: 3.5-5.1; Units: MEQ/L; Status: F Test: CHLORIDE LEVEL; Value: 106; Range: 98-107; Units: MEQ/L; Status: F Test: CARBON DIOXIDE LEVEL; Value: 29; Range: 21-32; Units: MEQ/L; Status: F Test: ANION GAP; Value: 8; Range: 8-16; Units: MEQ/L; Status: F Test: CALCIUM LEVEL; Value: 8.9; Range: 8.5-10.1; Units: MG/DL; Status: F Test Note: ; Units are mL/min/1.73 m2 Chronic Kidney Disease Staging per NKF: Stage I & II GFR >=60 Normal to Mildly Decreased Stage III GFR 30-59 Moderately Decreased Stage IV GFR 15-29 Severely Decreased Stage V GFR <15 Very Little GFR Left ESRD GFR <15 on INSURANCE JOB TITLES Lab Order: Complete Blood Count; SPEC'M 11/26/16 11:33 Test: WHITE BLOOD COUNT; Value: 6.8; Range: 4.0-10.0; Units: K/mm3; Status: F Test: RED BLOOD COUNT; Value: 4.38; Range: 4.30-6.10; Units: M/mm3; Status: F Test: HEMOGLOBIN; Value: 12.9; Range: 14.0-18.0; Abnormal: Below low normal; Units: g/dl; Status: F Test: HEMATOCRIT; Value: 37.6; Range: 42.0-52.0; Abnormal: Below low normal; Units: %; Status: F Test: MEAN CORPUSCULAR VOLUME; Value: 85.9; Range: 80.0-96.0; Units: fl; Status: F Test: MEAN CORPUSCULAR HEMOGLOBIN; Value: 29.5; Range: 27.0-33.0; Units: pg; Status: F Test: MEAN CORPUSCULAR HGB CONC; Value: 34.4; Range: 32.0-36.5; Units: g/dl; Status: F Test: RED CELL DISTRIBUTION WIDTH; Value: 13.3; Range: 11.5-14.5; Units: %; Status: F Test: PLATELET COUNT, AUTOMATED; Value: 248; Range: 150-450; Units: k/mm3; Status: F Lab Order: Drug Eval Toxicology ED Only; SPEC'M 11/26/16 11:42 Test: AMPHETAMINES LEVEL URINE; Value: NEGATIVE; Range: NEGATIVE; Status: F Test: BARBITURATES URINE; Value: NEGATIVE; Range: NEGATIVE; Status: F Test: BENZODIAZEPINES URINE; Value: POSITIVE; Range: NEGATIVE; Abnormal: Above high normal; Status: F Test: CANNABINOIDS URINE; Value: NEGATIVE; Range: NEGATIVE; Status: F Test: COCAINE METABOLITE URINE; Value: NEGATIVE; Range: NEGATIVE; Status: F Test: METHADONE URINE; Value: NEGATIVE; Range: NEGATIVE; Status: F Test: OPIATES URINE; Value: POSITIVE; Range: NEGATIVE; Abnormal: Above high normal; Status: F Test: TRICYCLIC ANTIDEPRESS URINE; Value: NEGATIVE; Range: NEGATIVE; Status: F Test Note: ; ALL PRESUMPTIVE POSITIVE FINDINGS ARE UNCONFIRMED NORMAL VALUES THRESHOLD IN NG/ML AMPHETAMINES 1000 METHAMPHETAMINES 1000 BARBITURATES 300 BENZODIAZEPINES 300 CANNABINOIDS (THC) 50 COCAINE METABOLITE 300 METHADONE 300 OPIATES 300 PHENCYCLIDINE 25 TRICYCLIC ANTIDEPRESSANTS 1000 RESULTS ARE FOR MEDICAL PURPOSES ONLY. ALL URINE SPECIMENS WILL BE SAVED FOR 3 DAYS. IF CONFIRMATION OF A PRESUMPTIVE POSTIVE SCREEN RESULT IS DESIRED, CALL CHEMISTRY ([phone]) AND REQUEST URINE TO BE SENT TO REFERENCE LAB. FOR A LIST OF CLOSELY RELATED COMPOUNDS PLEASE CALL THE LAB. Lab Order: Ethyl Alcohol (ethanol); SPEC'M 11/26/16 11:33 Test: ETHYL ALCOHOL (ETHANOL); Value: < 0.003; Range: 0.000-0.010; Units: %; Status: F Lab Order: Liver Profile; SPEC'M 11/26/16 11:33 Test: AST/SGOT; Value: 15; Range: 15-37; Units: U/L; Status: F Test: ALT/SGPT; Value: 28; Range: 12-78; Units: U/L; Status: F Test: ALKALINE PHOSPHATASE; Value: 66; Range: 45-117; Units: U/L; Status: F Test: BILIRUBIN,TOTAL; Value: 0.3; Range: 0.2-1.0; Units: MG/DL; Status: F Test: BILIRUBIN,DIRECT; Value: < 0.1; Range: 0.0-0.2; Units: MG/DL; Status: F Test: TOTAL PROTEIN; Value: 7.6; Range: 6.4-8.2; Units: GM/DL; Status: F Test: ALBUMIN; Value: 3.9; Range: 3.2-5.2; Units: GM/DL; Status: F Test: ALBUMIN/GLOBULIN RATIO; Value: 1.05; Range: 1.00-1.93; Status: F Lab Order: Salicylate Level; SPEC'M 11/26/16 11:33 Test: SALICYLATE LEVEL; Value: < 1.7; Range: 5.0-30.0; Abnormal: Below low normal; Units: MG/DL; Status: F Lab Order: Thyroid Stimulating Hormone; SPEC'M 11/26/16 11:33 Test: THYROID STIMULATING HORMONE; Value: 1.170; Range: 0.358-3.740; Units: uIU/ML; Status: F Outcome: 07:43 The following High Risk Discharge criteria are identified: Yes, patient spoke with baljeet ARNETT. 07:44 No special radiology studies were completed. kr3 13:35 Decision to Hospitalize by Provider. ar2 15:33 Discharge Assessment: Patient awake, alert and oriented x 3. No cognitive and/or kcs functional deficits noted. Patient verbalized understanding of disposition instructions. Patient awake and alert. patient administered narcotics - yes. Patient was admitted to the hospital or transferred to another facility. Admitted to Psych accompanied by [facility], via wheelchair, with chart. Condition: stable. 15:37 Patient left the ED. kcs Signatures: Estelita Treviño RN RN kcs Anderson, Cathy PSA PSA ca Dolores Romo, Reg Reg gb Jose Jarrell, Security Aide [facility] Jenifer Jj RN RN ck1 Melony Durham RN RN kr3 Stacey Bowles, PSA PSA ml4 Izzy Wilson RN RN Steven King, PA-Niru PA-C ar2 Florence Easley RN RN Naomi Dyer jp5 Jose Pereira, Reg Reg pm4 Corrections: (The following items were deleted from the chart) 07:11 07:03 Suicide/Homicide risk assessment- the patient denies having any suicidal and/or ck1 homicidal ideations and does not present with any other emotional, behavioral or mental health complaints ck1 10:56 07:09 Home Meds: Hawthorne 10-325 mg Oral tab 1 tab every 4 hours; PRN (Last Dose: jjr 11/25/2016 21:00); ck1 :56 07:09 Home Meds: Wellbutrin XL 300 mg Oral Tb24 1 tab once daily (Last Dose: jjr 11/25/2016); ck1 11:05 09:47 Subjective: The patients chief complaint is Pt states feelings of depression have ca been increasing for months along with. ca 12:17 10:56 Home Meds: trazodone 50 mg Oral tab NIGHTLY; jjr kcs Chart Complete MTDD
--- NOTE | 2016-11-28 16:38 | EDDOCDS ---
Physician Documentation [facility] Name: Edin Machado Age: 56 yrs Sex: Male : 1960 Arrival Date: 11/26/2016 Time: 06:52 Bed U4 [facility] MD: Jordan Dos Santos Disposition: 11/26/16 13:35 Hospitalization ordered by Kimberly Parra for Inpatient Admission. Preliminary diagnosis are Major depressive disorder, recurrent, Other chronic pain - neck and back due to degenerative disc disease. - Bed requested for Admit. - Status is Inpatient Admission. kcs - Condition is Stable. - Problem is new. - Symptoms are unchanged. Historical: - Allergies: Motrinfever; - Home Meds: 1. Cardizem 240 mg Oral 1 tab daily (Last dose: 11/25/2016) 2. lisinopril 40 mg Oral tab 1 tab once daily (Last dose: 11/25/2016) 3. lithium carbonate 300 mg Oral cap daily (Last dose: 11/25/2016) 4. simvastatin 40 mg Oral tab 1 tab once daily (Last dose: 11/25/2016) 5. Valium 5 mg Oral tab 1 tab 3 times per day (Last dose: 11/25/2016 12:00) 6. Zoloft 100 mg Oral tab 1 tab once daily (Last dose: 11/25/2016) 7. Morton 10/300 MG Oral tab 1 tab every 4 hours PRN (Last dose: 11/25/2016 21:00) 8. Wellbutrin XL 150 mg oral Tb24 BID (Last dose: 11/25/2016) 9. gabapentin 200 MG Oral tab BID 10. methocarbamol 500 mg Oral tab Q8HPRN 11. trazodone 100 mg oral tab nightly - PMHx: CAD; Chronic Back pain; Depression; herniated discs L3,4, C1,2; Hypertension; infection to buttocks; Kidney stones; - PSHx: kidney stone removal; Appendectomy; surgery for wound infection; - Social history: Smoking status: Patient states former smoker of tobacco. No barriers to communication noted, The patient speaks fluent Georgian, Speaks appropriately for age. - Family history: Not pertinent. - : The pt / caregiver states he / she is not on anticoagulants. Home medication list is obtained from [employer] import data. - Exposure Risk Screening:: None identified. Vital Signs: 11/26 07:04 BP 162 / 79; Pulse 88; Resp 18; Temp 97.3(O); Pulse Ox 99% on R/A; Weight 113.4 kg / ck1 250 lbs; Height 5 ft. 10 in. (177.80 cm); Pain 8/10; 09:37 Pain 7/10; kr3 10:33 BP 126 / 74; Pulse 81; Resp 18; Temp 98.5(T); Pulse Ox 99% on R/A; Pain 7/10; jjr 15:33 BP 114 / 53; Pulse 92; Resp 20; Temp 96.9(O); Pulse Ox 98% on R/A; Pain 6/10; kcs 07:04 Body Mass Index 35.87 (113.40 kg, 177.80 cm) ck1 MDM: 07:27 Consult PFS/PSA/[employer] Driver: Psychiatric Concerns ordered. ar2 07:42 Dilaudid - HYDROmorphone 1 mg IM once ordered. ar2 07:42 Ondansetron ODT Oral Disintegrating Tablet 4 mg PO once ordered. ar2 07:43 Consult PFS/PSA/[employer] Driver: Psychiatric Concerns complete. kr3 08:38 [facility] Payment Agreement was scanned into [employer] and attached to record. jp5 08:38 Financial registration complete. jp5 09:19 Consult PFS/PSA/[employer] Driver: Patient's case requires discussion with on-call ar2 Psychiatrist ordered. 09:19 PSA/PFS to call Nursing Psychiatry Resident, to enter patient data on [place] Safe Act if patient ar2 involuntarily admitted or transferred for SI or HI ordered. 09:19 Confirm accurate psychiatric medication list and times of last dosage ordered. ar2 09:19 Detain Pt Until Medically/PFS Cleared ordered. ar2 09:20 Acetaminophen Level Ordered. EDMS 09:20 Basic Metabolic Profile Ordered. EDMS 09:21 Complete Blood Count Ordered. EDMS 09:21 Drug Eval Toxicology ED Only Ordered. EDMS 09:21 Ethyl Alcohol (ethanol) Ordered. EDMS 09:21 Liver Profile Ordered. EDMS 09:21 Salicylate Level Ordered. EDMS 09:21 Thyroid Stimulating Hormone Ordered. EDMS 09:21 BED REQUEST+ADM ordered. EDMS 12:00 REGULAR DIET PLASTIC OBRIEN+DIET ordered. EDMS 12:23 Acetaminophen Level Reviewed. ar2 12:23 Basic Metabolic Profile Reviewed. ar2 12:23 Complete Blood Count Reviewed. ar2 12:23 Drug Eval Toxicology ED Only Reviewed. ar2 12:23 Salicylate Level Reviewed. ar2 12:23 Ethyl Alcohol (ethanol) Reviewed. ar2 12:23 Liver Profile Reviewed. ar2 12:23 Thyroid Stimulating Hormone Reviewed. ar2 12:41 Gabapentin 200 mg PO once ordered. ar2 12:41 HYDROcodone-acetaminophen 5 mg-325 mg 2 tabs PO once ordered. ar2 14:11 Admit to IMHU: ordered. EDMS 14:11 REGULAR DIET ordered. EDMS 14:18 [facility] Legal paperwork was scanned into [employer] and attached to record. ml4 14:48 T-Sheet-- Draft Copy was scanned into [employer] and attached to record. gb Administered Medications: 08:36 Drug: Dilaudid - HYDROmorphone 1 mg [hydromorphone 1 mg/mL injection syringe (1 mL)] kr3 Route: IM; Site: left deltoid; 09:37 Follow up: Pain 04/19 Adult; Response: Pain is decreased kr3 08:36 Drug: Ondansetron ODT 4 mg [ondansetron 4 mg disintegrating tablet (1 tabs)] Route: PO; kr3 12:56 Drug: Gabapentin 200 mg [gabapentin 100 mg capsule (2 caps)] Route: PO; kcs 12:56 Drug: HYDROcodone-acetaminophen 2 tabs [hydrocodone 5 mg-acetaminophen 325 mg tablet (2 kcs tabs)] Route: PO; Signatures: Dispatcher MedHo EDEstelita Dotson RN RN kcs Dolores Romo, Reg Reg gb Jenifer JjRN RN ck1 Melony Durham RN RN kr3 Stacey Bowles, PSA PSA ml4 Izzy Wilson RN RN nuryr Steven Costa PA-C PA-C ar2 Naomi Cagle jp5 The chart was reviewed and I authenticate all verbal orders and agree with the evaluation and treatment provided.Corrections: (The following items were deleted from the chart) 10:56 07:09 Home Meds: Morton 10-325 mg Oral tab 1 tab every 4 hours; PRN (Last Dose: jjr 11/25/2016 21:00); 10:56 07:09 Home Meds: Wellbutrin XL 300 mg Oral Tb24 1 tab once daily (Last Dose: jjgertrudis 11/25/2016); ck 12:17 10:56 Home Meds: trazodone 50 mg Oral tab NIGHTLY; jjr kcs Attachments: 08:38 [facility] [place] Payment Agreement jp5 14:48 T-Sheet-- Draft Copy gb Chart Complete MTDD
[2016-11-28] MEDS: LITHIUM CARBONATE 300 MG CAP PO SCH (20:59)
[2016-11-28] MEDS: SIMVASTATIN 40 MG TAB PO SCH (20:59)
[2016-11-28] MEDS: DULoxetine 20 MG CAP (CYMBALTA) PO SCH (20:59)
[2016-11-28] MEDS: traZODone 100 MG TAB PO SCH (22:36)
[2016-11-29] MEDS: NORCO, ANEXSIA 5/325MG TABLET (HYDROcodone/ACETAMINOPHEN) PO PRN ×5 (04:35→21:07)
[2016-11-29 06:20] VITALS: BP 122/78
[2016-11-29] MEDS: BACITRACIN OINT 30GM TOP SCH ×2 (08:42→21:05)
[2016-11-29] MEDS: [UNRECOGNIZED DRUG - OTHER] OU SCH ×2 (08:42→21:06)
[2016-11-29] MEDS: diazePAM 5 MG TAB PO SCH ×2 (08:43→21:05)
[2016-11-29] MEDS: GABAPENTIN 100 MG CAP PO SCH ×3 (08:43→21:05)
[2016-11-29] MEDS: buPROPion 75 MG TAB PO SCH (08:45)
[2016-11-29] MEDS: LISINOPRIL 40 MG TAB PO SCH (08:45)
[2016-11-29 18:00] VITALS: BP 118/65
[2016-11-29] MEDS: DULoxetine 20 MG CAP (CYMBALTA) PO SCH (21:05)
[2016-11-29] MEDS: SIMVASTATIN 40 MG TAB PO SCH (21:05)
[2016-11-29] MEDS: LITHIUM CARBONATE 300 MG CAP PO SCH (21:05)
[2016-11-29] MEDS: traZODone 100 MG TAB PO SCH (21:05)
[2016-11-30] MEDS: NORCO, ANEXSIA 5/325MG TABLET (HYDROcodone/ACETAMINOPHEN) PO PRN ×4 (06:30→19:42)
[2016-11-30 06:36] VITALS: BP 146/82
[2016-11-30] MEDS: [UNRECOGNIZED DRUG - OTHER] OU SCH ×2 (08:49→21:55)
[2016-11-30] MEDS: diazePAM 5 MG TAB PO SCH (08:49)
[2016-11-30] MEDS: buPROPion 75 MG TAB PO SCH (08:50)
[2016-11-30] MEDS: LISINOPRIL 40 MG TAB PO SCH (08:50)
[2016-11-30] MEDS: GABAPENTIN 100 MG CAP PO SCH ×3 (08:50→21:55)
[2016-11-30] MEDS: BACITRACIN OINT 30GM TOP SCH ×2 (09:17→21:56)
--- NOTE | 2016-11-30 09:49 | IPN ---
DATE: 11/28/2016 SUBJECTIVE: "I'm feeling a little better." OBJECTIVE: Patient is improving slowly. Patient denies side effect from the medication although he wanted to change the dosage of some of it but encouraged the patient to discuss this issue with the primary provider. Patient has a superficial wound in the arm and is concerned that it will get infected. MENTAL STATUS EXAMINATION: Patient is dressed in [facility]. Patient is clean and well groomed. Patient is cooperative, has fair eye contact. Speech is slow and monotone. Mood is depressed and anxious. Affect is somewhat restricted. No delusions or hallucinations. Memory is fair. Patient is fully oriented. Associations are intact. Thinking is logical. Thought content is appropriate. Patient is able to contract for safety in the unit. Insight and judgment is fair. ASSESSMENT: 1. Depression with suicidal ideation. PLAN: 1. Continue with bupropion 75 mg by mouth every morning. 2. Continue with Valium 5 mg by mouth twice a day. 3. Continue with Cymbalta 20 mg by mouth nightly. 4. Continue with Neurontin 200 mg by mouth three times a day. 5. Continue with lithium 300 mg by mouth nightly.
--- NOTE | 2016-11-30 10:24 | IPN ---
DATE: 11/29/2016 SUBJECTIVE: "I'm feeling a little better." OBJECTIVE: Patient is improving slowly. Patient continues with symptoms of depression and anxiety, but his psychomotor retardation has improved. Patient reports being awaken due to his pain and un-comfort of the mattress. Patient is tolerating well the medication and is motivated for treatment. MENTAL STATUS EXAMINATION: Patient is dressed in [facility]. Patient is clean and well groomed. He is calm and cooperative. Has fair eye contact. Speech is slow and monotone. Mood is depressed and anxious. Affect is congruent with mood. No evidence of psychotic symptoms. No auditory or visual hallucinations or delusions. Short-term, long-term memory are fair. Patient is fully oriented. Associations are intact. Thinking is logical. Thought content is appropriate. Patient is able to contract for safety and denies suicidal or homicidal ideation during the interview. Insight and judgment are fair. ASSESSMENT: 1. Major depression. 2. Suicidal ideation. PLAN: 1. Continue with bupropion 75 mg by mouth every morning. 2. Continue Valium 5 mg by mouth twice a day. 3. Cymbalta 20 mg by mouth nightly. 4. [place] 300 mg by mouth nightly. 5. Neurontin 200 mg by mouth three times a day. 5. Continue with lithium 300 mg by mouth nightly.
--- NOTE | 2016-11-30 16:54 | IPNPDOC ---
[facility] Progress Note Progress Note DATE OF SERVICE: 11/30/16 HISTORY: "Wild, it's a culminating of things ". Patient states "For 20 years I responded to majority of tragedies in [place]. That was from [id number]. I also had a mom with dementia diagnosed in 2007, she in 2009. My dad had a stroke in 2008 and diagnosed with cancer. He in October 2011. I have also been caring for my brother since 1999. He has mental illness and a brain injury. So it spent all of that, my is suffering, it's just overwhelming stress ". PAST PSYCHIATRIC HISTORY: Patient denies prior hospital admits ER visits for psychiatric or mental health issues. Patient states he has been prescribed medications by Dr. Gunderson?? Patient had felt his medications were working well until yesterday when he start to to have increasing suicidal thoughts. Patient states his thoughts became focused around suicide by overdose. Patient felt that this point he needed to come to the hospital to be evaluated. ALLERGIES: Please see below. HOME MEDICATIONS: Per record as follows: -Bupropion 150 mg by mouth every morning for depression -Zoloft 100 mg by mouth daily for depression -[place] 300 mg by mouth daily at bedtime for mood stabilization -Valium 5 mg 3 times a day for anxiety -Trazodone 100 mg by mouth daily at bedtime when necessary for insomnia -Gabapentin 200 mg by mouth twice a day for mood stabilization Of note Patient is on Corona every 4 hours when necessary when his pain is at 8-10/10 scale PAST MEDICAL HISTORY: Patient states he has chronic pain from herniated disks at L3 and L4 and C1 and C2. Patient prior records signify CAD, HTN, kidney stones. FAMILY PSYCHIATRIC HISTORY: Patient states his brother has schizophrenia and bipolar disorder. Patient reports a daughter also has schizophrenia and substance abuse issues. SOCIAL HISTORY: Patient is in his second marriage of 19 years. Patient has 4 children of his own one son who was murdered in 2002. 3 daughters of which one is okay, one has schizophrenia, the other daughter has aplastic anemia and needs a bone marrow transplant. SUBSTANCE ABUSE HISTORY: Patient denies. LEGAL HISTORY: Patient denies other than traffic violations. VITAL SIGNS: Temperature 96.2, pulse 79, respiratory rate 20, blood pressure 146 /82. LABORATORY DATA: Please see below. UDS on admit was positive for opiates and benzos. Barbiturate results are still pending. [place] level today, 0.34 which is low. CURRENT MEDICATIONS: See below. -Cymbalta 20 mg by mouth daily for depression -[place] 300 mg by mouth daily at bedtime for mood stabilization, todays level 0.34 which is low -Valium 5 mg every day for anxiety, patient is tapering off, should be off by , 12/03/16. -Trazodone 100 mg by mouth daily at bedtime, may repeat x 1 when necessary for insomnia -Gabapentin 200 mg by mouth three times a day for mood stabilization MENTAL STATUS EXAMINATION: Patient is a 56 year old male, who is talkative, pleasant and cooperative. Patient is overweight, of average build. Patient is currently wearing hospital scrubs and T-shirt. Grooming is average. Patient is noted to be ambulating with a cane with a steady gait. Patient states he has neck and back issues which he was supposed to have had surgery 11/24/16. Patient states he was not able to have that surgery because of a provider issue. It is unknown if patient is delusional about this and several other information pieces that he reports as facts. Speech: Is verbose, circumstantial, flight of ideas, tangential, is of increased rate, volume, and articulation, and is coherent and spontaneous. Language: Intact. Thought processes: Unknown if clear, not goal-directed. Thought content: Unknown if logical, rational, tangential. Abstract reasoning, and computation: Adequate. Associations: Unknown, appeared to be loose, tangential and circumstantial. Description of abnormal or psychotic thoughts: Patient denies hallucinations, paranoia, delusions, obsessions or compulsions. Patient also currently denies homicidal or suicidal ideation, preoccupations. Patient states he has not had thoughts of suicide since his admission. Patient denies having a plan for suicide. Judgment: Limited. Insight: Very limited. Oriented to: Time, person, place and surroundings. Recent and remote memory: Patient reports "I can't remember names", patient denies any problems with short or long-term memory. Attention span and concentration: Fair. Language: Normal. Fund of knowledge: Adequate. Mood: Patient states "Pretty good, pretty good". Patient appears to not be as delusional as he was 11/27/16. It would be beneficial if facts could be corroborated. Patient also refers to some of what he does and says in a narcissistic way. Patient states currently his baseline depression on a good day at home is 5-6/10, anxiety as 5/10. Patient reports now depression is 1/10 and anxiety is a 0/10. Affect: Appropriate, flat possibly delusional, may be rational and logical if statements can be validated. Patient does not appear to be depressed, anxious or sad. DIAGNOSES: 1. Major depressive disorder, recurrent, moderate. 2. PTSD. 3. Chronic pain disorder. ASSESSMENT: Patient appears grandiose and verbose. Patient appears to be using a vocabulary above his understanding. Patient is currently laughing and smiling appropriately, does not appear to be depressed, sad or anxious. Patient does state he is relieved to be here. Patient feels he'll be able to rest now that he is here. Patient is very defensive when talking about his pain medicine or benzodiazepines. Provider discussed in detail chemical reactions and how meds work together or not. Provider is not able to ascertain at this time how much patient is a able to actually process and understand. Will continue to evaluate patient's symptoms, comments, information discussed. Provider will be looking for collaborative information to validate what patient is saying. No evidence that pain consult has been completed yet. MANAGEMENT PLAN: Patient to be continually assessed and evaluated while on unit. Patient will be expected to be out of his room as much as possible. Patient to eat meals in lounge. Patient to engage appropriately with peers and staff. Patient be weaned off Valium per Dr. Mason's recommendation. Maintain safety precautions. Patient to attend groups and participate in unit programming and activities to develop effective coping strategies. Patient to be engaged in discharge planning process to ensure safe and effective discharge plan. Patient to follow-up with a PCP upon discharge. Patient to start therapy and meet with a psychiatrist or nurse practitioner for medication management services. Patient to consider substance abuse support group upon discharge. TIME SPENT: 25 minutes. Vital Signs Vital Signs Date Time Temp Pulse Resp B/P Pulse Ox O2 Delivery O2 Flow Rate FiO2 11/30/16 15:30 16 11/30/16 08:49 82 141/84 11/30/16 06:36 96.2 11/26/16 16:06 98 Room Air Laboratory Data 24H Labs Laboratory Tests 2 11/30/16 06:24: [place] Level 0.34L Current Medications Current Medications Acetaminophen/ Hydrocodone Bitart (Corona, [place] 5/325) 2 tab Q4HP PRN PO SEVERE PAIN (PS 8-10) Last administered on 11/30/16 15:30; Start 11/26/16 at 18 :00; Stop 12/03/16 at 17:59 Al Hydrox/Mg Hydrox/Simethicone (Mylanta) 30 ml Q4HP PRN PO HEARTBURN/ INDIGESTION; Start 11/26/16 at 18:00; Stop 12/26/16 at 17:59 Bacitracin (Bacitracin Oint) BID TOP Last administered on 11/30/16 09:17; Start 11/28/16 at 09:00; Stop 12/28/16 at 08:59 Bupropion HCl (Wellbutrin Xl) 300 mg DAILY PO Last administered on 11/27/16 10 :22; Start 11/27/16 at 09:00; Stop 11/27/16 at 13:37; Status DC Bupropion HCl (Wellbutrin) 75 mg QAM PO Last administered on 11/30/16 08:50; Start 11/28/16 at 09:00; Stop 11/30/16 at 12:14; Status DC Bupropion HCl (Wellbutrin) 300 mg DAILY PO ; Start 11/27/16 at 09:00; Stop 11/27 at 09:00; Status DC Diazepam (Valium) 5 mg BID PO Last administered on 11/30/16 08:49; Start 11/27 at 21:00; Stop 11/30/16 at 12:14; Status DC Diazepam (Valium) 5 mg QAM PO ; Start 12/01/16 at 09:00; Stop 12/02/16 at 10:30 Diazepam (Valium) 5 mg TID PO Last administered on 11/27/16 10:24; Start 11/26 at 21:00; Stop 11/27/16 at 13:37; Status DC Diltiazem HCl (Cardizem Cd) 240 mg DAILY PO Last administered on 11/30/16 08: 49; Start 11/27/16 at 09:00; Stop 12/27/16 at 08:59 Duloxetine HCl (Cymbalta) 20 mg QHS PO Last administered on 11/29/16 21:05; Start 11/27/16 at 21:00; Stop 12/27/16 at 20:59 Gabapentin (Neurontin) 200 mg BID PO Last administered on 11/27/16 10:22; Start 11/26/16 at 21:00; Stop 11/27/16 at 13:37; Status DC Gabapentin (Neurontin) 200 mg TID PO Last administered on 11/30/16 15:29; Start 11/27/16 at 16:00; Stop 12/27/16 at 15:59 Home Med (Med Rec Complete!) ASDIRECTED XX ; Start 11/26/16 at 11:30; Stop at 11:31; Status DC Hydroxyzine HCl (Atarax) 50 mg Q6HP PRN PO ANXIETY/AGITATION; Start 11/27/16 at 13:30; Stop 12/27/16 at 13:29 Lisinopril (Prinivil) 40 mg DAILY PO Last administered on 11/30/16 08:50; Start 11/27/16 at 09:00; Stop 12/27/16 at 08:59 [place] Carbonate ([place] Carbonate) 300 mg QHS PO Last administered on 21:05; Start 11/26/16 at 21:00; Stop 12/26/16 at 20:59 Magnesium Hydroxide (Milk Of Magnesia) 30 ml DAILYPRN PRN PO CONSTIPATION; Start 11/26/16 at 18:00; Stop 12/26/16 at 17:59 Patient Own Medication (Patient'S Own Med) Clear Eyes Redness Reli... BID OU Last administered on 11/30/16 08:49; Start 11/28/16 at 09:00; Stop 12/28/16 at 08:59 Simvastatin (Zocor) 40 mg QHS PO Last administered on 11/29/16 21:05; Start at 21:00; Stop 12/26/16 at 20:59 Trazodone HCl (Desyrel) 100 mg QHS PO Last administered on 11/29/16 21:05; Start 11/27/16 at 21:00; Stop 12/27/16 at 20:59 Trazodone HCl (Desyrel) 100 mg QHSP PRN PO INSOMNIA; Start 11/26/16 at 18:00; Stop 11/27/16 at 21:00; Status DC Allergies Coded Allergies: Ibuprofen (Verified Adverse Reaction, Intermediate, HIGH FEVER, 07/26/13) RENA GLEZ NP Nov 30, 2016 16:54
[2016-11-30 18:00] VITALS: BP 146/75
[2016-11-30] MEDS: traZODone 100 MG TAB PO SCH (21:55)
[2016-11-30] MEDS: LITHIUM CARBONATE 300 MG CAP PO SCH (21:55)
[2016-11-30] MEDS: SIMVASTATIN 40 MG TAB PO SCH (21:55)
[2016-11-30] MEDS: DULoxetine 20 MG CAP (CYMBALTA) PO SCH (21:55)
[2016-12-01] MEDS: NORCO, ANEXSIA 5/325MG TABLET (HYDROcodone/ACETAMINOPHEN) PO PRN ×6 (00:26→22:53)
[2016-12-01 06:32] VITALS: BP 155/72
[2016-12-01] MEDS: diazePAM 5 MG TAB PO SCH (09:04)
[2016-12-01] MEDS: GABAPENTIN 100 MG CAP PO SCH ×3 (09:05→22:21)
[2016-12-01] MEDS: LISINOPRIL 40 MG TAB PO SCH (09:05)
[2016-12-01] MEDS: BACITRACIN OINT 30GM TOP SCH ×2 (09:05→21:34)
[2016-12-01] MEDS: [UNRECOGNIZED DRUG - OTHER] OU SCH ×2 (09:05→22:24)
--- NOTE | 2016-12-01 10:27 | CR ---
DATE OF CONSULTATION: 11/30/2016 CHIEF COMPLAINT: 1. Neck pain. 2. Left arm pain. 3. Low back pain. 4. Right leg pain. HISTORY OF PRESENT ILLNESS: Edin is a 56-year-old gentleman referred for management and evaluation of chronic neck and low back pain. The patient was in the hospital on 11/23 anticipating cervical surgery for a large cervical herniated disc with Dr. Barry, but surgery was cancelled at the last minute due to conflict with surgeon. Three days later, the patient was admitted to mental health services for exacerbation of depression with suicidal thoughts. Chief complaint today is neck and left arm pain. Rating pain level as a 6/10. Does find hydrocodone 5/325 two tablets somewhat effective at reducing his pain and keeping him comfortable. Also taking gabapentin 200 mg three times daily. His plan at discharge is to be evaluated by a surgeon in [place] in regards to cervical surgery. He visited the pain clinic for a consult in September [address] Gunderson. He at the time was not interested in pursuing interventional management or injections for his pain. Today we talked about injection therapy, potential risks and benefits during the interim phase before he has his upcoming surgery if he should want to do something more aggressive for his current pain situation before surgery. The patient was somewhat receptive, but did in the end decline any thoughts of doing any injections for his pain situation. Pain is aggravated by lifting or bending. Denies bowel or bladder incontinence. No recent fever, illness or sudden weight loss. PAST MEDICAL HISTORY: 1. Hypertension. 2. Prostatitis. 3. BPH. 4. Depression. 5. Migraines. 6. Chronic back pain. 7. Kidney stones. PAST SURGICAL HISTORY: 1. Appendectomy. 2. Lithotripsy. FAMILY HISTORY: Father . Mother . One son, three daughters, son . SOCIAL HISTORY: Denies current use of tobacco. Denies use of alcohol or illicit substances. Today denies suicidal ideations. REVIEW OF SYSTEMS: The 11-point review of systems reveals only problems dictated in history of present illness. PHYSICAL EXAMINATION: Awake, alert, pleasant. Conversation is tangential at times. He needs to be refocused during the interview on several occasions. Vital signs: Temperature 96.2, pulse 79, respiratory rate 20, blood pressure 146/82. Cardiac: S1, S2. Normal rate and rhythm. Respiratory: Lung sounds clear. Respirations nonlabored. Neuromuscular: Muscle strength and tone of both upper and lower extremities 5/5 bilaterally. Range of joint motion of the arms is full with reports of increase in neck pain with elevation of left arm above shoulder height. Inspection: Tenderness over cervical axis. Tenderness noted over cervical paraspinal and left trapezius. Equal strong insulation board back tender strength bilateral hands. Reporting normal sensation to light touch over his arms bilaterally. DIAGNOSTIC DATA: None available. ASSESSMENT: 1. Cervical disc displacement with radiculopathy - left arm. 2. Lumbar disc protrusion with radiculopathy right leg. 3. Chronic opiate use for pain management. PLAN: At this point, I would continue with his current medications for his painful condition. I did voice my concern to him about body wirer use of high-dose opioids and his plan is to have surgery and hopefully be able to reduce and discontinue opioids . I did advise him that on occasion opioids can aggravate depression. He will get in to see a surgeon as soon as possible to consider neck and low back surgery as planned. He will continue to follow with Dr. Gunderson as an outpatient. He does know what services we provide at the interventional pain center at [facility] and would be inclined to contact us if he would like to consider this type of therapy to help relieve some of his pain prior to any surgery. ROSARIO
[2016-12-01] MEDS: hydrOXYzine 50 MG TAB PO PRN (12:06)
--- NOTE | 2016-12-01 13:16 | IPNPDOC ---
[facility] Progress Note Progress Note DATE OF SERVICE: 12/01/16 HISTORY: "Wild, it's a culminating of things ". Patient states "For 20 years I responded to majority of tragedies in [place]. That was from [id number]. I also had a mom with dementia diagnosed in 2007, she in 2009. My dad had a stroke in 2008 and diagnosed with cancer. He in October 2011. I have also been caring for my brother since 1999. He has mental illness and a brain injury. So it spent all of that, my is suffering, it's just overwhelming stress ". PAST PSYCHIATRIC HISTORY: Patient denies prior hospital admits ER visits for psychiatric or mental health issues. Patient states he has been prescribed medications by Dr. Gunderson?? Patient had felt his medications were working well until yesterday when he start to to have increasing suicidal thoughts. Patient states his thoughts became focused around suicide by overdose. Patient felt that this point he needed to come to the hospital to be evaluated. ALLERGIES: Please see below. HOME MEDICATIONS: Per record as follows: -Bupropion 150 mg by mouth every morning for depression -Zoloft 100 mg by mouth daily for depression -[place] 300 mg by mouth daily at bedtime for mood stabilization -Valium 5 mg 3 times a day for anxiety -Trazodone 100 mg by mouth daily at bedtime when necessary for insomnia -Gabapentin 200 mg by mouth twice a day for mood stabilization Of note Patient is on [place] every 4 hours when necessary when his pain is at 8-10/10 scale PAST MEDICAL HISTORY: Patient states he has chronic pain from herniated disks at L3 and L4 and C1 and C2. Patient prior records signify CAD, HTN, kidney stones. FAMILY PSYCHIATRIC HISTORY: Patient states his brother has schizophrenia and bipolar disorder. Patient reports a daughter also has schizophrenia and substance abuse issues. SOCIAL HISTORY: Patient is in his second marriage of 19 years. Patient has 4 children of his own one son who was murdered in 2002. 3 daughters of which one is okay, one has schizophrenia, the other daughter has aplastic anemia and needs a bone marrow transplant. SUBSTANCE ABUSE HISTORY: Patient denies. LEGAL HISTORY: Patient denies other than traffic violations. VITAL SIGNS: Temperature 96.8, pulse 88, respiratory rate 16, blood pressure 155 /72. LABORATORY DATA: Please see below. UDS on admit was positive for opiates and benzos. Barbiturate results are still pending. [place] level 11/30/16, 0.34 which is low. CURRENT MEDICATIONS: See below. -Cymbalta 20 mg by mouth daily for depression -[place] 300 mg by mouth daily at bedtime for mood stabilization, 11/30/16 level 0.34 which is low -Valium 5 mg every day for anxiety, patient is tapering off, should be off by , 12/03/16. -Trazodone 100 mg by mouth daily at bedtime, may repeat x 1 when necessary for insomnia -Gabapentin 200 mg by mouth three times a day for mood stabilization MENTAL STATUS EXAMINATION: Patient is a 56 year old male, who is talkative, tangential, pleasant and mostly cooperative. Patient is overweight, of heavy build. Patient is currently wearing his own clothes. Grooming is average. Patient is noted to be ambulating with a cane and steady gait. Patient states he has neck and back issues which he was supposed to have had surgery 11/24/16. Patient states he was not able to have that surgery because of a provider issue. It is unknown if patient is delusional about this and several other information pieces that he reports as facts. Speech: Is verbose, circumstantial, flight of ideas, tangential, is of increased rate, volume, and articulation, is coherent and spontaneous. Language : Intact. Thought processes: Clearing, not goal-directed. Thought content: Appear logical, rational, tangential. Abstract reasoning, and computation: Adequate. Associations: Appear to be loose, tangential and circumstantial. Description of abnormal or psychotic thoughts: Patient denies hallucinations, paranoia, delusions, obsessions or compulsions. Pt. then does states he did feel "Ignored " by staff", especially the male med nurse last night. This may be some paranoia. Patient also currently denies homicidal or suicidal ideation/plan. Patient states he has not had thoughts of suicide since his admission. 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 Judgment: Limited. Insight: Very limited. Oriented to: Time, person, place and surroundings. Recent and remote memory: Patient reports "The same", patient denies any problems with short or long-term memory. Attention span and concentration: Fair. Language: Normal. Fund of knowledge: Adequate. Mood: Patient states "Pretty good, I've been talking ". Patient appears to not be delusional today. It would be beneficial if facts could be corroborated. Patient also refers to some of what he does and says in a narcissistic way. Patient states currently his baseline depression on a good day at home is 5-6/10, anxiety as 5/10. Patient reports now depression and anxiety are 0/10. Affect: Appropriate, flat, may be rational and logical if statements can be validated. Patient does not appear to be depressed, anxious or sad. Pt. does appear confused at times during his assessment. DIAGNOSES: 1. Major depressive disorder, recurrent, moderate. 2. PTSD. 3. Chronic pain disorder. ASSESSMENT: Patient still appears grandiose and verbose. Patient appears to be using a vocabulary above his understanding. Patient is currently laughing and smiling appropriately, does not appear to be depressed, sad or anxious. Patient does state he is relieved to be here. Patient feels he'll be able to rest now that he is here. Patient is very defensive when talking about his pain medicine or benzodiazepines. Provider discussed in detail chemical reactions and how meds work together or not. Provider is not able to ascertain at this time how much patient is a able to actually process and understand. Will continue to evaluate patient's symptoms, comments, information discussed. Provider will be looking for collaborative information to validate what patient is saying. Pain consult was completed yesterday per pt. Patient is asking if we can get a neuro consult for him. On admit patient stated the hospital was finding him a provider in [place] or [place] due to his surgical provider issue. MANAGEMENT PLAN: Patient to be continually assessed and evaluated while on unit. Patient will be expected to be out of his room as much as possible. Patient to eat meals in lounge. Patient to engage appropriately with peers and staff. Patient be weaned off Valium per Dr. Mason's recommendation. Pt's. last dose is scheduled for 0900 tomorrow(12/02/16). Maintain safety precautions. Patient to attend groups and participate in unit programming and activities to develop effective coping strategies. Patient to be engaged in discharge planning process to ensure safe and effective discharge plan. Patient to follow- up with a PCP upon discharge. Patient to start therapy and meet with a psychiatrist or nurse practitioner for medication management services. Patient to consider substance abuse support group upon discharge. TIME SPENT: 25 minutes. Vital Signs Vital Signs Date Time Temp Pulse Resp B/P Pulse Ox O2 Delivery O2 Flow Rate FiO2 12/01/16 11:20 16 12/01/16 09:04 90 139/73 12/01/16 06:32 96.8 11/26/16 16:06 98 Room Air Current Medications Current Medications Acetaminophen/ Hydrocodone Bitart ([place], Anexsia 5/325) 2 tab Q4HP PRN PO SEVERE PAIN (PS 8-10) Last administered on 12/01/16 10:27; Start 11/26/16 at 18 :00; Stop 12/03/16 at 17:59 Al Hydrox/Mg Hydrox/Simethicone (Mylanta) 30 ml Q4HP PRN PO HEARTBURN/ INDIGESTION; Start 11/26/16 at 18:00; Stop 12/26/16 at 17:59 Bacitracin (Bacitracin Oint) BID TOP Last administered on 12/01/16 09:05; Start 11/28/16 at 09:00; Stop 12/28/16 at 08:59 Bupropion HCl (Wellbutrin Xl) 300 mg DAILY PO Last administered on 11/27/16 10 :22; Start 11/27/16 at 09:00; Stop 11/27/16 at 13:37; Status DC Bupropion HCl (Wellbutrin) 75 mg QAM PO Last administered on 11/30/16 08:50; Start 11/28/16 at 09:00; Stop 11/30/16 at 12:14; Status DC Bupropion HCl (Wellbutrin) 300 mg DAILY PO ; Start 11/27/16 at 09:00; Stop 11/27 at 09:00; Status DC Diazepam (Valium) 5 mg BID PO Last administered on 11/30/16 08:49; Start 11/27 at 21:00; Stop 11/30/16 at 12:14; Status DC Diazepam (Valium) 5 mg QAM PO Last administered on 12/01/16 09:04; Start 12/01 at 09:00; Stop 12/02/16 at 10:30 Diazepam (Valium) 5 mg TID PO Last administered on 11/27/16 10:24; Start 11/26 at 21:00; Stop 11/27/16 at 13:37; Status DC Diltiazem HCl (Cardizem Cd) 240 mg DAILY PO Last administered on 12/01/16 09: 04; Start 11/27/16 at 09:00; Stop 12/27/16 at 08:59 Duloxetine HCl (Cymbalta) 20 mg QHS PO Last administered on 11/30/16 21:55; Start 11/27/16 at 21:00; Stop 12/27/16 at 20:59 Gabapentin (Neurontin) 200 mg BID PO Last administered on 11/27/16 10:22; Start 11/26/16 at 21:00; Stop 11/27/16 at 13:37; Status DC Gabapentin (Neurontin) 200 mg TID PO Last administered on 12/01/16 09:05; Start 11/27/16 at 16:00; Stop 12/27/16 at 15:59 Home Med (Med Rec Complete!) ASDIRECTED XX ; Start 11/26/16 at 11:30; Stop at 11:31; Status DC Hydroxyzine HCl (Atarax) 50 mg Q6HP PRN PO ANXIETY/AGITATION Last administered on 12/01/16 12:06; Start 11/27/16 at 13:30; Stop 12/27/16 at 13:29 Lisinopril (Prinivil) 40 mg DAILY PO Last administered on 12/01/16 09:05; Start 11/27/16 at 09:00; Stop 12/27/16 at 08:59 [place] Carbonate ([place] Carbonate) 300 mg QHS PO Last administered on 21:55; Start 11/26/16 at 21:00; Stop 12/26/16 at 20:59 Magnesium Hydroxide (Milk Of Magnesia) 30 ml DAILYPRN PRN PO CONSTIPATION; Start 11/26/16 at 18:00; Stop 12/26/16 at 17:59 Patient Own Medication (Patient'S Own Med) Clear Eyes Redness Reli... BID OU Last administered on 12/01/16 09:05; Start 11/28/16 at 09:00; Stop 12/28/16 at 08:59 Simvastatin (Zocor) 40 mg QHS PO Last administered on 11/30/16t 21:55; Start at 21:00; Stop 12/26/16 at 20:59 Trazodone HCl (Desyrel) 100 mg QHS PO Last administered on 11/30/16t 21:55; Start 11/27/16 at 21:00; Stop 12/27/16 at 20:59 Trazodone HCl (Desyrel) 100 mg QHSP PRN PO INSOMNIA; Start 11/26/16 at 18:00; Stop 11/27/16 at 21:00; Status DC Allergies Coded Allergies: Ibuprofen (Verified Adverse Reaction, Intermediate, HIGH FEVER, 07/26/13) RENA GLEZ NP Dec 01, 2016 13:16
[2016-12-01 18:00] VITALS: BP 124/75
[2016-12-01] MEDS: SIMVASTATIN 40 MG TAB PO SCH (21:00)
[2016-12-01] MEDS: DULoxetine 20 MG CAP (CYMBALTA) PO SCH (22:22)
[2016-12-01] MEDS: traZODone 100 MG TAB PO SCH (22:22)
[2016-12-01] MEDS: LITHIUM CARBONATE 300 MG CAP PO SCH (22:22)
[2016-12-02 06:38] VITALS: BP 144/82
[2016-12-02] MEDS: NORCO, ANEXSIA 5/325MG TABLET (HYDROcodone/ACETAMINOPHEN) PO PRN ×4 (06:56→20:07)
[2016-12-02] MEDS: diazePAM 5 MG TAB PO SCH (08:53)
[2016-12-02] MEDS: GABAPENTIN 100 MG CAP PO SCH ×3 (08:53→21:21)
[2016-12-02] MEDS: [UNRECOGNIZED DRUG - OTHER] OU SCH ×2 (08:54→20:06)
[2016-12-02] MEDS: LISINOPRIL 40 MG TAB PO SCH (08:54)
[2016-12-02] MEDS: BACITRACIN OINT 30GM TOP SCH (08:55)
--- NOTE | 2016-12-02 13:46 | IPNPDOC ---
Subjective Date Seen The patient was seen on 12/02/16. Subjective Chief Complaint/HPI The patient is a 56-year-old male admitted with a reason for visit of Unspecified Depressive Do. Events since last encounter requested to re evaluate Rt antecubital skin area. initially area with irritation from tape and skin tear. now with increased irritation and erythema, yellowish drainage. ENT: Denies: Dysphagia, Ear Pain, Head Aches Pulmonary: Denies: Cough, Dyspnea Gastrointestinal: Denies: Abdominal Pain, Constipation, Diarrhea, Nausea, Vomiting Genitourinary: Denies: Dysuria, Frequency, Incontinence, Retention Objective Physical Examination General Exam: Positive: Alert Eye Exam: Positive: PERRLA ENT Exam: Positive: Atraumatic Chest Exam: Positive: Clear to auscultation, Normal air movement Heart Exam: Positive: Normal S1, Normal S2, Rate Normal, Regular Rhythm, Negative: Murmurs, Rubs Skin Exam: Positive: Nl turgor and temperature, Other skin issue ( area of previous tape irritation Rt anecubital area with increased irritation and erythema, surrounding areas of irritation and erythema. No fluctuance, nodules, drainage, warmth, TTP. ) Assessment /Plan Problems (1) Dermatitis Status: Acute Problem Text: * discontinue bacitracin as this seems to be causing increased skin irritation * apply dry dressing. * Add keflex 500mg po BID. * Monitor. (2) Chronic pain Status: Chronic Problem Text: * appreciate pain mgmt Clt. * Outpt referral to Neurosurgery in [place] or [place] as per pt request as per PCP. * F/U with PCP after D/C. (3) HTN (hypertension) Status: Chronic Problem Text: * Lisinopril (4) HLD (hyperlipidemia) Status: Chronic Problem Text: * Zocor. Plan/VTE VTE Prophylaxis Ordered?: No (ambulatory) VS, I&O, 24H, Fishbone Vital Signs/I&O Vital Signs Date Time Temp Pulse Resp B/P Pulse Ox O2 Delivery O2 Flow Rate FiO2 12/02/16 12:20 18 12/02/16 08:54 78 144/82 12/02/16 06:38 98.0 11/26/16 16:06 98 Room Air Estrellita Stapleton Dec 02, 2016 13:46
[2016-12-02] MEDS: CEPHALEXIN 500 MG CAP PO SCH ×2 (14:23→21:21)
[2016-12-02 18:00] VITALS: BP 136/82
--- NOTE | 2016-12-02 18:16 | IPNPDOC ---
[facility] Progress Note Progress Note DATE OF SERVICE: 12/02/16 HISTORY: "Wild, it's a culminating of things ". Patient states "For 20 years I responded to majority of tragedies in [place]. That was from [id number]. I also had a mom with dementia diagnosed in 2007, she in 2009. My dad had a stroke in 2008 and diagnosed with cancer. He in October 2011. I have also been caring for my brother since 1999. He has mental illness and a brain injury. So it spent all of that, my is suffering, it's just overwhelming stress ". PAST PSYCHIATRIC HISTORY: Patient denies prior hospital admits ER visits for psychiatric or mental health issues. Patient states he has been prescribed medications by Dr. Gunderson?? Patient had felt his medications were working well until yesterday when he start to to have increasing suicidal thoughts. Patient states his thoughts became focused around suicide by overdose. Patient felt that this point he needed to come to the hospital to be evaluated. ALLERGIES: Please see below. HOME MEDICATIONS: Per record as follows: -Bupropion 150 mg by mouth every morning for depression -Zoloft 100 mg by mouth daily for depression -[place] 300 mg by mouth daily at bedtime for mood stabilization -Valium 5 mg 3 times a day for anxiety -Trazodone 100 mg by mouth daily at bedtime when necessary for insomnia -Gabapentin 200 mg by mouth twice a day for mood stabilization Of note Patient is on [place] every 4 hours when necessary when his pain is at 8-10/10 scale PAST MEDICAL HISTORY: Patient states he has chronic pain from herniated disks at L3 and L4 and C1 and C2. Patient prior records signify CAD, HTN, kidney stones. FAMILY PSYCHIATRIC HISTORY: Patient states his brother has schizophrenia and bipolar disorder. Patient reports a daughter also has schizophrenia and substance abuse issues. SOCIAL HISTORY: Patient is in his second marriage of 19 years. Patient has 4 children of his own one son who was murdered in 2002. 3 daughters of which one is okay, one has schizophrenia, the other daughter has aplastic anemia and needs a bone marrow transplant. SUBSTANCE ABUSE HISTORY: Patient denies. LEGAL HISTORY: Patient denies other than traffic violations. VITAL SIGNS: Temperature 98, pulse 78, respiratory rate 18, blood pressure 144/ 82. LABORATORY DATA: Please see below. UDS on admit was positive for opiates and benzos. Barbiturate results are still pending. [place] level 11/30/16, 0.34 which is low. CURRENT MEDICATIONS: See below. -Cymbalta 20 mg by mouth daily for depression -[place] 300 mg by mouth daily at bedtime for mood stabilization, 11/30/16 level 0.34 which is low -Valium 5 mg every day for anxiety, last dose at 0900, 12/02/16. -Trazodone 100 mg by mouth daily at bedtime, may repeat x 1 when necessary for insomnia -Gabapentin 200 mg by mouth three times a day for mood stabilization MENTAL STATUS EXAMINATION: Patient is a 56 year old male, who is talkative, tangential, pleasant and mostly cooperative. Patient is overweight, of heavy build. Patient is currently wearing his own clothes. Grooming is good. Patient is noted to be ambulating with a cane and steady gait. Patient states he has neck and back issues which he was supposed to have had surgery 11/24/16. Patient states he was not able to have that surgery because of a provider issue. This was found to be true per staff. Speech: Is verbose, circumstantial, flight of ideas, tangential, is of increased rate, volume, and articulation, is coherent and spontaneous. Language : Intact. Thought processes: Clearing, not goal-directed. Thought content: Appear logical, rational, tangential. Abstract reasoning, and computation: Adequate. Associations: Appear to be loose, tangential and circumstantial. Description of abnormal or psychotic thoughts: Patient denies hallucinations, paranoia, delusions, obsessions or compulsions. Patient also currently denies homicidal or suicidal ideation/plan. Patient states he has not had thoughts of suicide since his admission. 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 Judgment: Limited. Insight: Limited. Oriented to: Time, person, place and surroundings. Recent and remote memory: Patient reports "About the same", patient denies any problems with short or long-term memory. Attention span and concentration: Fair. Language: Normal. Fund of knowledge: Adequate. Mood: Patient states "Good". Facts are corroborated, patient is valid in his statements per staff. Patient also refers to some of what he does and says in a narcissistic way, such as if to say, it's all about me. Patient states currently his baseline depression on a good day at home is 5-6/10, anxiety as 5/10. Patient reports now depression and anxiety are 0/10. Pt. did state the anxiety group yesterday did make him anxious, so he used his prn med(hydroxyzine hcl) which helped greatly. Affect: Appropriate, flat, rational, logical. Patient does appear to be slightly depressed, anxious and sad. Pt. does appear confused at times during his assessment. DIAGNOSES: 1. Major depressive disorder, recurrent, moderate. 2. PTSD. 3. Chronic pain disorder. ASSESSMENT: Patient still appears grandiose and verbose at times, but is improved. Patient appears to be using a vocabulary above his understanding. Patient is currently laughing and smiling appropriately, does appear to be slightly depressed, sad and anxious. Patient does state he is relieved to be here. Patient feels he'll be able to rest now that he is here. Patient is very defensive when talking about his pain medicine or benzodiazepines. Provider discussed in detail chemical reactions and how meds work together or not. Provider is not able to ascertain at this time how much patient is a able to actually process and understand. Will continue to evaluate patient's symptoms, comments, information discussed. Provider was told by staff that patient's statements are valid. Pain consult was completed 12/01/16 per pt. Patient is asking if we can get a neuro consult for him. On admit patient stated the hospital was finding him a provider in [place] or [place] due to his surgical provider issue. MANAGEMENT PLAN: Patient to be continually assessed and evaluated while on unit. Patient will be expected to be out of his room as much as possible. Patient to eat meals in lounge. Patient to engage appropriately with peers and staff. Patient be weaned off Valium per Dr. Mason's recommendation. Pt's. last dose was today at 0900 (12/02/16). Maintain safety precautions. Patient to attend groups and participate in unit programming and activities to develop effective coping strategies. Patient to be engaged in discharge planning process to ensure safe and effective discharge plan. Patient to follow-up with a PCP upon discharge. Patient to start therapy and meet with a psychiatrist or nurse practitioner for medication management services. Patient to consider substance abuse support group upon discharge. TIME SPENT: 25 minutes. Discussed with patient that this will be provider's last day. Pt. reassured that his care will be transferred and continued with another provider. Pt. states understanding. Vital Signs Vital Signs Date Time Temp Pulse Resp B/P Pulse Ox O2 Delivery O2 Flow Rate FiO2 12/02/16 16:45 18 12/02/16 08:54 78 144/82 12/02/16 06:38 98.0 11/26/16 16:06 98 Room Air Current Medications Current Medications Acetaminophen/ Hydrocodone Bitart ([place], Anexsia 5/325) 2 tab Q4HP PRN PO SEVERE PAIN (PS 8-10) Last administered on 12/02/16 15:51; Start 11/26/16 at 18 :00; Stop 12/03/16 at 17:59 Al Hydrox/Mg Hydrox/Simethicone (Mylanta) 30 ml Q4HP PRN PO HEARTBURN/ INDIGESTION; Start 11/26/16 at 18:00; Stop 12/26/16 at 17:59 Bacitracin (Bacitracin Oint) BID TOP Last administered on 12/02/16 08:55; Start 11/28/16 at 09:00; Stop 12/02/16 at 12:28; Status DC Bupropion HCl (Wellbutrin Xl) 300 mg DAILY PO Last administered on 11/27/16 10 :22; Start 11/27/16 at 09:00; Stop 11/27/16 at 13:37; Status DC Bupropion HCl (Wellbutrin) 75 mg QAM PO Last administered on 11/30/16 08:50; Start 11/28/16 at 09:00; Stop 11/30/16 at 12:14; Status DC Bupropion HCl (Wellbutrin) 300 mg DAILY PO ; Start 11/27/16 at 09:00; Stop 11/27 at 09:00; Status DC Cephalexin Monohydrate (Keflex) 500 mg BID PO Last administered on 12/02/16 14 :23; Start 12/02/16 at 09:00; Stop 12/09/16 at 08:59 Diazepam (Valium) 5 mg BID PO Last administered on 11/30/16 08:49; Start 11/27 at 21:00; Stop 11/30/16 at 12:14; Status DC Diazepam (Valium) 5 mg QAM PO Last administered on 12/02/16 08:53; Start 12/01 at 09:00; Stop 12/02/16 at 10:30; Status DC Diazepam (Valium) 5 mg TID PO Last administered on 11/27/16 10:24; Start 11/26 at 21:00; Stop 11/27/16 at 13:37; Status DC Diltiazem HCl (Cardizem Cd) 240 mg DAILY PO Last administered on 12/02/16 08: 54; Start 11/27/16 at 09:00; Stop 12/27/16 at 08:59 Duloxetine HCl (Cymbalta) 20 mg QHS PO Last administered on 12/01/16 22:22; Start 11/27/16 at 21:00; Stop 12/27/16 at 20:59 Gabapentin (Neurontin) 200 mg BID PO Last administered on 11/27/16 10:22; Start 11/26/16 at 21:00; Stop 11/27/16 at 13:37; Status DC Gabapentin (Neurontin) 200 mg TID PO Last administered on 12/02/16 15:01; Start 11/27/16 at 16:00; Stop 12/27/16 at 15:59 Home Med (Med Rec Complete!) ASDIRECTED XX ; Start 11/26/16 at 11:30; Stop at 11:31; Status DC Hydroxyzine HCl (Atarax) 50 mg Q6HP PRN PO ANXIETY/AGITATION Last administered on 12/01/16 12:06; Start 11/27/16 at 13:30; Stop 12/27/16 at 13:29 Lisinopril (Prinivil) 40 mg DAILY PO Last administered on 12/02/16 08:54; Start 11/27/16 at 09:00; Stop 12/27/16 at 08:59 [place] Carbonate ([place] Carbonate) 300 mg QHS PO Last administered on 22:22; Start 11/26/16 at 21:00; Stop 12/26/16 at 20:59 Magnesium Hydroxide (Milk Of Magnesia) 30 ml DAILYPRN PRN PO CONSTIPATION; Start 11/26/16 at 18:00; Stop 12/26/16 at 17:59 Patient Own Medication (Patient'S Own Med) Clear Eyes Redness Reli... BID OU Last administered on 12/02/16 08:54; Start 11/28/16 at 09:00; Stop 12/28/16 at 08:59 Simvastatin (Zocor) 40 mg QHS PO Last administered on 12/01/16 21:00; Start at 21:00; Stop 12/26/16 at 20:59 Trazodone HCl (Desyrel) 100 mg QHS PO Last administered on 12/01/16 22:22; Start 11/27/16 at 21:00; Stop 12/27/16 at 20:59 Trazodone HCl (Desyrel) 100 mg QHSP PRN PO INSOMNIA; Start 11/26/16 at 18:00; Stop 11/27/16 at 21:00; Status DC Allergies Coded Allergies: Ibuprofen (Verified Adverse Reaction, Intermediate, HIGH FEVER, 07/26/13) RENA GLEZ NP Dec 02, 2016 18:16
[2016-12-02] MEDS: traZODone 100 MG TAB PO SCH (21:00)
[2016-12-02] MEDS: SIMVASTATIN 40 MG TAB PO SCH (21:21)
[2016-12-02] MEDS: LITHIUM CARBONATE 300 MG CAP PO SCH (21:21)
[2016-12-02] MEDS: DULoxetine 20 MG CAP (CYMBALTA) PO SCH (21:21)
[2016-12-02] MEDS: hydrOXYzine 50 MG TAB PO PRN (21:21)
[2016-12-03] MEDS: NORCO, ANEXSIA 5/325MG TABLET (HYDROcodone/ACETAMINOPHEN) PO PRN ×6 (00:09→23:33)
[2016-12-03 06:37] VITALS: BP 128/60
[2016-12-03] MEDS: LISINOPRIL 40 MG TAB PO SCH (09:01)
[2016-12-03] MEDS: GABAPENTIN 100 MG CAP PO SCH ×3 (09:01→21:13)
[2016-12-03] MEDS: CEPHALEXIN 500 MG CAP PO SCH ×2 (09:01→21:13)
[2016-12-03] MEDS: [UNRECOGNIZED DRUG - OTHER] OU SCH ×2 (09:02→18:43)
[2016-12-03 18:00] VITALS: BP 115/58
[2016-12-03] MEDS: hydrOXYzine 50 MG TAB PO PRN (18:35)
[2016-12-03] MEDS: traZODone 100 MG TAB PO SCH (21:00)
[2016-12-03] MEDS: SIMVASTATIN 40 MG TAB PO SCH (21:13)
[2016-12-03] MEDS: LITHIUM CARBONATE 300 MG CAP PO SCH (21:13)
[2016-12-03] MEDS: DULoxetine 20 MG CAP (CYMBALTA) PO SCH (21:13)
--- NOTE | 2016-12-03 22:43 | IPNPDOC ---
[facility], [place] Progress Note Progress Note DATE OF SERVICE: 12/03/16 Sujbjective: Patient reports his mood as "pretty good". He denies SI/HI. He continues to be talkative and verbose,but pleasant. No issues on the unit. Objective: vitals -wnl labs - see below. CURRENT MEDICATIONS: See below. -Cymbalta 20 mg by mouth daily for depression -[place] 300 mg by mouth daily at bedtime for mood stabilization, 11/30/16 level 0.34 which is low -Valium 5 mg every day for anxiety, last dose at 0900, 12/02/16. -Trazodone 100 mg by mouth daily at bedtime, may repeat x 1 when necessary for insomnia -Gabapentin 200 mg by mouth three times a day for mood stabilization MENTAL STATUS EXAMINATION: Patient is a 56 year old male, who is talkative, pleasant and mostly cooperative. Patient is overweight, of heavy build. Patient is currently wearing his own clothes. Grooming is good. Patient is noted to be ambulating with a cane and steady gait. Patient states he has neck and back issues which he was supposed to have had surgery 11/24/16. Patient states he was not able to have that surgery because of a provider issue. This was found to be true per staff. Speech: Is verbose, increased rate, volume, and articulation, is coherent and spontaneous. Language: Intact. Thought processes: Clear, goal- directed. Thought content: Appear logical, rational, tangential. Abstract reasoning, and computation: Adequate. Associations: Appear to be loose, tangential and circumstantial. Description of abnormal or psychotic thoughts: Patient denies hallucinations, paranoia, delusions, obsessions or compulsions. Patient also currently denies homicidal or suicidal ideation/plan. Patient states he has not had thoughts of suicide since his admission. 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 Insight: fair. Oriented to: Time, person, place and surroundings. Recent and remote memory: Patient reports "About the same", patient denies any problems with short or long-term memory. Attention span and concentration: Fair. Language: Normal. Fund of knowledge: Adequate. Mood: Patient states pretty good Affect: full. DIAGNOSES: 1. Major depressive disorder, recurrent, moderate. 2. PTSD. 3. Chronic pain disorder. PLAN: Continue current med regimen. Maintain safety precautions. Patient to attend groups and participate in unit programming and activities to develop effective coping strategies. TIME SPENT: 25 minutes. Vital Signs Vital Signs Date Time Temp Pulse Resp B/P Pulse Ox O2 Delivery O2 Flow Rate FiO2 12/03/16 19:47 18 12/03/16 18:00 97.4 90 115/58 12/03/16 11:04 Room Air Current Medications Current Medications Acetaminophen/ Hydrocodone Bitart ([place], [place] 5/325) 2 tab Q4HP PRN PO SEVERE PAIN (PS 8-10) Last administered on 12/03/16 14:33; Start 11/26/16 at 18 :00; Stop 12/03/16 at 17:59; Status DC Acetaminophen/ Hydrocodone Bitart ([place], [place] 5/325) 2 tab Q4HP PRN PO SEVERE PAIN (PS 8-10) Last administered on 12/03/16 19:17; Start 12/03/16 at 19 :15; Stop 12/10/16 at 19:14 Al Hydrox/Mg Hydrox/Simethicone (Mylanta) 30 ml Q4HP PRN PO HEARTBURN/ INDIGESTION; Start 11/26/16 at 18:00; Stop 12/26/16 at 17:59 Bacitracin (Bacitracin Oint) BID TOP Last administered on 12/02/16 08:55; Start 11/28/16 at 09:00; Stop 12/02/16 at 12:28; Status DC Bupropion HCl (Wellbutrin Xl) 300 mg DAILY PO Last administered on 11/27/16 10 :22; Start 11/27/16 at 09:00; Stop 11/27/16 at 13:37; Status DC Bupropion HCl (Wellbutrin) 75 mg QAM PO Last administered on 11/30/16 08:50; Start 11/28/16 at 09:00; Stop 11/30/16 at 12:14; Status DC Bupropion HCl (Wellbutrin) 300 mg DAILY PO ; Start 11/27/16 at 09:00; Stop 11/27 at 09:00; Status DC Cephalexin Monohydrate (Keflex) 500 mg BID PO Last administered on 12/03/16 21 :13; Start 12/02/16 at 09:00; Stop 12/09/16 at 08:59 Diazepam (Valium) 5 mg BID PO Last administered on 11/30/16 08:49; Start 11/27 at 21:00; Stop 11/30/16 at 12:14; Status DC Diazepam (Valium) 5 mg QAM PO Last administered on 12/02/16 08:53; Start 12/01 at 09:00; Stop 12/02/16 at 10:30; Status DC Diazepam (Valium) 5 mg TID PO Last administered on 11/27/16 10:24; Start 11/26 at 21:00; Stop 11/27/16 at 13:37; Status DC Diltiazem HCl (Cardizem Cd) 240 mg DAILY PO Last administered on 12/03/16 09: 01; Start 11/27/16 at 09:00; Stop 12/27/16 at 08:59 Duloxetine HCl (Cymbalta) 20 mg QHS PO Last administered on 12/03/16 21:13; Start 11/27/16 at 21:00; Stop 12/27/16 at 20:59 Gabapentin (Neurontin) 200 mg BID PO Last administered on 11/27/16 10:22; Start 11/26/16 at 21:00; Stop 11/27/16 at 13:37; Status DC Gabapentin (Neurontin) 200 mg TID PO Last administered on 12/03/16 21:13; Start 11/27/16 at 16:00; Stop 12/27/16 at 15:59 Home Med (Med Rec Complete!) ASDIRECTED XX ; Start 11/26/16 at 11:30; Stop at 11:31; Status DC Hydroxyzine HCl (Atarax) 50 mg Q6HP PRN PO ANXIETY/AGITATION Last administered on 12/03/16 18:35; Start 11/27/16 at 13:30; Stop 12/27/16 at 13:29 Lisinopril (Prinivil) 40 mg DAILY PO Last administered on 12/03/16 09:01; Start 11/27/16 at 09:00; Stop 12/27/16 at 08:59 [place] Carbonate ([place] Carbonate) 300 mg QHS PO Last administered on 21:13; Start 11/26/16 at 21:00; Stop 12/26/16 at 20:59 Magnesium Hydroxide (Milk Of Magnesia) 30 ml DAILYPRN PRN PO CONSTIPATION; Start 11/26/16 at 18:00; Stop 12/26/16 at 17:59 Patient Own Medication (Patient'S Own Med) Clear Eyes Redness Reli... BID OU Last administered on 12/03/16 09:02; Start 11/28/16 at 09:00; Stop 12/03/16 at 18:40; Status DC Patient Own Medication (Patient'S Own Med) Clear Eyes Redness Reli... BID@,18 OU Last administered on 12/03/16 18:43; Start 12/03/16 at 18:00; Stop at 17:59 Simvastatin (Zocor) 40 mg QHS PO Last administered on 12/03/16 21:13; Start at 21:00; Stop 12/26/16 at 20:59 Trazodone HCl (Desyrel) 100 mg QHS PO Last administered on 12/01/16 22:22; Start 11/27/16 at 21:00; Stop 12/27/16 at 20:59 Trazodone HCl (Desyrel) 100 mg QHSP PRN PO INSOMNIA; Start 11/26/16 at 18:00; Stop 11/27/16 at 21:00; Status DC Allergies Coded Allergies: Ibuprofen (Verified Adverse Reaction, Intermediate, HIGH FEVER, 07/26/13) JENIFER DOUGLAS MD Dec 03, 2016 22:43
[2016-12-04 06:46] VITALS: BP 157/76
[2016-12-04] MEDS: NORCO, ANEXSIA 5/325MG TABLET (HYDROcodone/ACETAMINOPHEN) PO PRN ×4 (07:05→20:19)
[2016-12-04] MEDS ORDERED: DULoxetine 30 MG CAP (CYMBALTA) PO SCH (09:00)
[2016-12-04] MEDS: GABAPENTIN 100 MG CAP PO SCH ×3 (09:08→20:20)
[2016-12-04] MEDS: CEPHALEXIN 500 MG CAP PO SCH ×2 (09:08→20:19)
[2016-12-04] MEDS: [UNRECOGNIZED DRUG - OTHER] OU SCH ×2 (09:08→17:49)
[2016-12-04] MEDS: LISINOPRIL 40 MG TAB PO SCH (09:09)
--- NOTE | 2016-12-04 15:11 | IPNPDOC ---
[facility] Progress Note Progress Note DATE OF SERVICE: 12/04/16 Sujbjective: Patient reports his mood as "good". Patient is more visible in the milieu and reports benefit from groups. He denies SI/HI. He continues to be talkative and verbose,but pleasant. No issues on the unit. Objective: vitals -wnl labs - see below. CURRENT MEDICATIONS: See below. -Cymbalta 20 mg by mouth daily for depression -[place] 300 mg by mouth daily at bedtime for mood stabilization, 11/30/16 level 0.34 which is low -Valium 5 mg every day for anxiety, last dose at 0900, 12/02/16. -Trazodone 100 mg by mouth daily at bedtime, may repeat x 1 when necessary for insomnia -Gabapentin 200 mg by mouth three times a day for mood stabilization MENTAL STATUS EXAMINATION: Patient is a 56 year old male, who is talkative, pleasant and mostly cooperative. Patient is overweight, of heavy build. Patient is currently wearing his own clothes. Grooming is good. Patient is noted to be ambulating with a cane and steady gait. Patient states he has neck and back issues which he was supposed to have had surgery 11/24/16. Patient states he was not able to have that surgery because of a provider issue. This was found to be true per staff. Speech: Is verbose, increased rate, volume, and articulation, is coherent and spontaneous. Language: Intact. Thought processes: Clear, goal- directed. Thought content: Appear logical, rational, tangential. Abstract reasoning, and computation: Adequate. Associations: Appear to be loose, tangential and circumstantial. Description of abnormal or psychotic thoughts: Patient denies hallucinations, paranoia, delusions, obsessions or compulsions. Patient also currently denies homicidal or suicidal ideation/plan. Patient states he has not had thoughts of suicide since his admission. 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 Insight: fair. Oriented to: Time, person, place and surroundings. Recent and remote memory: intact, patient denies any problems with short or long-term memory. Attention span and concentration: Fair. Language: Normal. Fund of knowledge: Adequate. Mood: "good" Affect: full. DIAGNOSES: 1. Major depressive disorder, recurrent, moderate. 2. PTSD. 3. Chronic pain disorder. PLAN: Continue current med regimen. Maintain safety precautions. Patient to attend groups and participate in unit programming and activities to develop effective coping strategies. TIME SPENT: 25 minutes. Vital Signs Vital Signs Date Time Temp Pulse Resp B/P Pulse Ox O2 Delivery O2 Flow Rate FiO2 12/04/16 11:57 64 16 12/04/16 09:08 160/100 12/04/16 06:46 96.5 12/03/16 11:04 Room Air Current Medications Current Medications Acetaminophen/ Hydrocodone Bitart ([place], [place] 5/325) 2 tab Q4HP PRN PO SEVERE PAIN (PS 8-10) Last administered on 12/03/16 14:33; Start 11/26/16 at 18 :00; Stop 12/03/16 at 17:59; Status DC Acetaminophen/ Hydrocodone Bitart ([place], [place] 5/325) 2 tab Q4HP PRN PO SEVERE PAIN (PS 8-10) Last administered on 12/04/16 11:20; Start 12/03/16 at 19 :15; Stop 12/10/16 at 19:14 Al Hydrox/Mg Hydrox/Simethicone (Mylanta) 30 ml Q4HP PRN PO HEARTBURN/ INDIGESTION; Start 11/26/16 at 18:00; Stop 12/26/16 at 17:59 Bacitracin (Bacitracin Oint) BID TOP Last administered on 12/02/16 08:55; Start 11/28/16 at 09:00; Stop 12/02/16 at 12:28; Status DC Bupropion HCl (Wellbutrin Xl) 300 mg DAILY PO Last administered on 11/27/16 10 :22; Start 11/27/16 at 09:00; Stop 11/27/16 at 13:37; Status DC Bupropion HCl (Wellbutrin) 75 mg QAM PO Last administered on 11/30/16 08:50; Start 11/28/16 at 09:00; Stop 11/30/16 at 12:14; Status DC Bupropion HCl (Wellbutrin) 300 mg DAILY PO ; Start 11/27/16 at 09:00; Stop 11/27 at 09:00; Status DC Cephalexin Monohydrate (Keflex) 500 mg BID PO Last administered on 12/04/16 09 :08; Start 12/02/16 at 09:00; Stop 12/09/16 at 08:59 Diazepam (Valium) 5 mg BID PO Last administered on 11/30/16 08:49; Start 11/27 at 21:00; Stop 11/30/16 at 12:14; Status DC Diazepam (Valium) 5 mg QAM PO Last administered on 12/02/16 08:53; Start 12/01 at 09:00; Stop 12/02/16 at 10:30; Status DC Diazepam (Valium) 5 mg TID PO Last administered on 11/27/16 10:24; Start 11/26 at 21:00; Stop 11/27/16 at 13:37; Status DC Diltiazem HCl (Cardizem Cd) 240 mg DAILY PO Last administered on 12/04/16 09: 08; Start 11/27/16 at 09:00; Stop 12/27/16 at 08:59 Duloxetine HCl (Cymbalta) 20 mg QHS PO Last administered on 12/03/16 21:13; Start 11/27/16 at 21:00; Stop 12/27/16 at 20:59 Gabapentin (Neurontin) 200 mg BID PO Last administered on 11/27/16 10:22; Start 11/26/16 at 21:00; Stop 11/27/16 at 13:37; Status DC Gabapentin (Neurontin) 200 mg TID PO Last administered on 12/04/16 09:08; Start 11/27/16 at 16:00; Stop 12/27/16 at 15:59 Home Med (Med Rec Complete!) ASDIRECTED XX ; Start 11/26/16 at 11:30; Stop at 11:31; Status DC Hydroxyzine HCl (Atarax) 50 mg Q6HP PRN PO ANXIETY/AGITATION Last administered on 12/03/16 18:35; Start 11/27/16 at 13:30; Stop 12/27/16 at 13:29 Lisinopril (Prinivil) 40 mg DAILY PO Last administered on 12/04/16 09:09; Start 11/27/16 at 09:00; Stop 12/27/16 at 08:59 [place] Carbonate ([place] Carbonate) 300 mg QHS PO Last administered on 21:13; Start 11/26/16 at 21:00; Stop 12/26/16 at 20:59 Magnesium Hydroxide (Milk Of Magnesia) 30 ml DAILYPRN PRN PO CONSTIPATION; Start 11/26/16 at 18:00; Stop 12/26/16 at 17:59 Patient Own Medication (Patient'S Own Med) Clear Eyes Redness Reli... BID OU Last administered on 12/03/16 09:02; Start 11/28/16 at 09:00; Stop 12/03/16 at 18:40; Status DC Patient Own Medication (Patient'S Own Med) Clear Eyes Redness Reli... BID@,18 OU Last administered on 12/04/16 09:08; Start 12/03/16 at 18:00; Stop at 17:59 Simvastatin (Zocor) 40 mg QHS PO Last administered on 12/03/16 21:13; Start at 21:00; Stop 12/26/16 at 20:59 Trazodone HCl (Desyrel) 100 mg QHS PO Last administered on 12/01/16 22:22; Start 11/27/16 at 21:00; Stop 12/27/16 at 20:59 Trazodone HCl (Desyrel) 100 mg QHSP PRN PO INSOMNIA; Start 11/26/16 at 18:00; Stop 11/27/16 at 21:00; Status DC Allergies Coded Allergies: Ibuprofen (Verified Adverse Reaction, Intermediate, HIGH FEVER, 07/26/13) JENIFER DOUGLAS MD Dec 04, 2016 15:11
[2016-12-04] MEDS: hydrOXYzine 50 MG TAB PO PRN (17:06)
[2016-12-04 18:00] VITALS: BP 160/100
[2016-12-04] MEDS ORDERED: LORazepam 2 MG TAB PO ONE (18:00)
[2016-12-04] MEDS: lamoTRIgine 25 MG TAB PO SCH (20:19)
[2016-12-04] MEDS: traZODone 50 MG TAB PO SCH (20:19)
[2016-12-04] MEDS: SIMVASTATIN 40 MG TAB PO SCH (20:19)
[2016-12-04] MEDS: DULoxetine 30 MG CAP (CYMBALTA) PO SCH (20:20)
[2016-12-05] MEDS: NORCO, ANEXSIA 5/325MG TABLET (HYDROcodone/ACETAMINOPHEN) PO PRN ×5 (04:11→21:28)
[2016-12-05] MEDS: CEPHALEXIN 500 MG CAP PO SCH ×2 (08:31→21:26)
[2016-12-05] MEDS: [UNRECOGNIZED DRUG - OTHER] OU SCH ×2 (08:31→17:25)
[2016-12-05] MEDS: GABAPENTIN 100 MG CAP PO SCH ×3 (08:32→21:27)
[2016-12-05] MEDS: LISINOPRIL 40 MG TAB PO SCH (08:32)
[2016-12-05 18:13] VITALS: BP 130/75
--- NOTE | 2016-12-05 19:06 | IPNPDOC ---
[facility] Progress Note Progress Note DATE OF SERVICE: 12/05/16 Sujbjective: Patient reports his mood continues to improve. He reports benefit from being away from his life stressors, able to regroup inpatient. He denies SI/HI. He continues to be talkative and verbose,but pleasant. No issues on the unit. Objective: vitals -wnl labs - see below. CURRENT MEDICATIONS: See below. -Cymbalta 20 mg by mouth daily for depression -[place] 300 mg by mouth daily at bedtime for mood stabilization, 11/30/16 level 0.34 which is low -Valium 5 mg every day for anxiety, last dose at 0900, 12/02/16. -Trazodone 100 mg by mouth daily at bedtime, may repeat x 1 when necessary for insomnia -Gabapentin 200 mg by mouth three times a day for mood stabilization MENTAL STATUS EXAMINATION: Patient is a 56 year old male, who is talkative, pleasant and mostly cooperative. Patient is overweight, of heavy build. Patient is currently wearing his own clothes. Grooming is good. Patient is noted to be ambulating with a cane and steady gait. Patient states he has neck and back issues which he was supposed to have had surgery 11/24/16. Patient states he was not able to have that surgery because of a provider issue. This was found to be true per staff. Speech: Is verbose, increased rate, volume, and articulation, is coherent and spontaneous. Language: Intact. Thought processes: Clear, goal- directed. Thought content: Appear logical, rational, tangential. Abstract reasoning, and computation: Adequate. Associations: Appear to be loose, tangential and circumstantial. Description of abnormal or psychotic thoughts: Patient denies hallucinations, paranoia, delusions, obsessions or compulsions. Patient also currently denies homicidal or suicidal ideation/plan. Patient states he has not had thoughts of suicide since his admission. 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 Insight: fair. Oriented to: Time, person, place and surroundings. Recent and remote memory: intact,patient denies any problems with short or long-term memory. Attention span and concentration: Fair. Language: Normal. Fund of knowledge: Adequate. Mood: Patient states"I'm okay" Affect: full. DIAGNOSES: 1. Major depressive disorder, recurrent, moderate. 2. PTSD. 3. Chronic pain disorder. PLAN: Continue current med regimen. Maintain safety precautions. Patient to attend groups and participate in unit programming and activities to develop effective coping strategies. TIME SPENT: 25 minutes. Vital Signs Vital Signs Date Time Temp Pulse Resp B/P Pulse Ox O2 Delivery O2 Flow Rate FiO2 12/05/16 18:13 97.6 81 16 130/75 12/03/16 11:04 Room Air Current Medications Current Medications Acetaminophen/ Hydrocodone Bitart ([place], [place] 5/325) 2 tab Q4HP PRN PO SEVERE PAIN (PS 8-10) Last administered on 12/03/16 14:33; Start 11/26/16 at 18 :00; Stop 12/03/16 at 17:59; Status DC Acetaminophen/ Hydrocodone Bitart ([place], [place] 5/325) 2 tab Q4HP PRN PO SEVERE PAIN (PS 8-10) Last administered on 12/05/16 17:27; Start 12/03/16 at 19 :15; Stop 12/10/16 at 19:14 Al Hydrox/Mg Hydrox/Simethicone ([place]ylanta) 30 ml Q4HP PRN PO HEARTBURN/ INDIGESTION; Start 11/26/16 at 18:00; Stop 12/26/16 at 17:59 Bacitracin (Bacitracin Oint) BID TOP Last administered on 12/02/16 08:55; Start 11/28/16 at 09:00; Stop 12/02/16 at 12:28; Status DC Bupropion HCl (Wellbutrin Xl) 300 mg DAILY PO Last administered on 11/27/16 10 :22; Start 11/27/16 at 09:00; Stop 11/27/16 at 13:37; Status DC Bupropion HCl (Wellbutrin) 75 mg QAM PO Last administered on 11/30/16 08:50; Start 11/28/16 at 09:00; Stop 11/30/16 at 12:14; Status DC Bupropion HCl (Wellbutrin) 300 mg DAILY PO ; Start 11/27/16 at 09:00; Stop 11/27 at 09:00; Status DC Cephalexin Monohydrate (Keflex) 500 mg BID PO Last administered on 12/05/16 08 :31; Start 12/02/16 at 09:00; Stop 12/09/16 at 08:59 Diazepam (Valium) 5 mg BID PO Last administered on 11/30/16 08:49; Start 11/27 at 21:00; Stop 11/30/16 at 12:14; Status DC Diazepam (Valium) 5 mg QAM PO Last administered on 12/02/16 08:53; Start 12/01 at 09:00; Stop 12/02/16 at 10:30; Status DC Diazepam (Valium) 5 mg TID PO Last administered on 11/27/16 10:24; Start 11/26 at 21:00; Stop 11/27/16 at 13:37; Status DC Diltiazem HCl (Cardizem Cd) 240 mg DAILY PO Last administered on 12/05/16 08: 31; Start 11/27/16 at 09:00; Stop 12/27/16 at 08:59 Duloxetine HCl (Cymbalta) 20 mg QHS PO Last administered on 12/03/16 21:13; Start 11/27/16 at 21:00; Stop 12/04/16 at 15:32; Status DC Duloxetine HCl (Cymbalta) 60 mg DAILY PO ; Start 12/04/16 at 09:00; Stop at 15:46; Status DC Duloxetine HCl (Cymbalta) 60 mg QHS PO Last administered on 12/04/16 20:20; Start 12/04/16 at 21:00; Stop 01/03/17 at 20:59 Gabapentin (Neurontin) 200 mg BID PO Last administered on 11/27/16 10:22; Start 11/26/16 at 21:00; Stop 11/27/16 at 13:37; Status DC Gabapentin (Neurontin) 200 mg TID PO Last administered on 12/04/16 09:08; Start 11/27/16 at 16:00; Stop 12/04/16 at 15:39; Status DC Gabapentin (Neurontin) 300 mg TID PO Last administered on 12/05/16 15:12; Start 12/04/16 at 16:00; Stop 01/03/17 at 15:59 Home Med (Med Rec Complete!) ASDIRECTED XX ; Start 11/26/16 at 11:30; Stop at 11:31; Status DC Hydroxyzine HCl (Atarax) 50 mg Q6HP PRN PO ANXIETY/AGITATION Last administered on 12/04/16 17:06; Start 11/27/16 at 13:30; Stop 12/27/16 at 13:29 Lamotrigine (LaMICtal) 25 mg QHS PO Last administered on 12/04/16 20:19; Start 12/04/16 at 21:00; Stop 01/03/17 at 20:59 Lisinopril (Prinivil) 40 mg DAILY PO Last administered on 12/05/16 08:32; Start 11/27/16 at 09:00; Stop 12/27/16 at 08:59 [place] Carbonate ([place] Carbonate) 300 mg QHS PO Last administered on 21:13; Start 11/26/16 at 21:00; Stop 12/04/16 at 15:49; Status DC Magnesium Hydroxide (Milk Of Magnesia) 30 ml DAILYPRN PRN PO CONSTIPATION; Start 11/26/16 at 18:00; Stop 12/26/16 at 17:59 Patient Own Medication (Patient'S Own Med) Clear Eyes Redness Reli... BID OU Last administered on 12/03/16 09:02; Start 11/28/16 at 09:00; Stop 12/03/16 at 18:40; Status DC Patient Own Medication (Patient'S Own Med) Clear Eyes Redness Reli... BID@09,18 OU Last administered on 12/05/16 17:25; Start 12/03/16 at 18:00; Stop at 17:59 Simvastatin (Zocor) 40 mg QHS PO Last administered on 12/04/16 20:19; Start at 21:00; Stop 12/26/16 at 20:59 Trazodone HCl (Desyrel) 50 mg QHS PO Last administered on 12/04/16 20:19; Start 12/04/16 at 21:00; Stop 01/03/17 at 20:59 Trazodone HCl (Desyrel) 100 mg QHS PO Last administered on 2/21/17at 22:22; Start 11/27/16 at 21:00; Stop 12/04/16 at 15:39; Status DC Trazodone HCl (Desyrel) 100 mg QHSP PRN PO INSOMNIA; Start 11/26/16 at 18:00; Stop 11/27/16 at 21:00; Status DC Allergies Coded Allergies: Ibuprofen (Verified Adverse Reaction, Intermediate, HIGH FEVER, 07/26/13) JENIFER DOUGLAS MD Dec 05, 2016 19:06
[2016-12-05] MEDS: traZODone 50 MG TAB PO SCH (21:26)
[2016-12-05] MEDS: lamoTRIgine 25 MG TAB PO SCH (21:26)
[2016-12-05] MEDS: SIMVASTATIN 40 MG TAB PO SCH (21:26)
[2016-12-05] MEDS: DULoxetine 30 MG CAP (CYMBALTA) PO SCH (21:28)
[2016-12-06] MEDS: NORCO, ANEXSIA 5/325MG TABLET (HYDROcodone/ACETAMINOPHEN) PO PRN ×4 (06:27→19:44)
[2016-12-06 06:33] VITALS: BP 129/67
[2016-12-06] MEDS: GABAPENTIN 100 MG CAP PO SCH ×3 (08:51→22:28)
[2016-12-06] MEDS: LISINOPRIL 40 MG TAB PO SCH (08:52)
[2016-12-06] MEDS: CEPHALEXIN 500 MG CAP PO SCH ×2 (08:52→22:28)
[2016-12-06] MEDS: [UNRECOGNIZED DRUG - OTHER] OU SCH ×2 (08:52→17:16)
[2016-12-06] MEDS: hydrOXYzine 50 MG TAB PO PRN (10:24)
[2016-12-06 18:00] VITALS: BP 138/88
[2016-12-06] MEDS: SIMVASTATIN 40 MG TAB PO SCH (22:27)
[2016-12-06] MEDS: lamoTRIgine 25 MG TAB PO SCH (22:28)
[2016-12-06] MEDS: traZODone 50 MG TAB PO SCH (22:28)
[2016-12-06] MEDS: DULoxetine 30 MG CAP (CYMBALTA) PO SCH (22:28)
[2016-12-07] MEDS: NORCO, ANEXSIA 5/325MG TABLET (HYDROcodone/ACETAMINOPHEN) PO PRN ×6 (00:15→23:27)
[2016-12-07 06:38] VITALS: BP 144/70
[2016-12-07] MEDS: [UNRECOGNIZED DRUG - OTHER] OU SCH ×2 (06:51→18:22)
[2016-12-07] MEDS: LISINOPRIL 40 MG TAB PO SCH (09:53)
[2016-12-07] MEDS: GABAPENTIN 100 MG CAP PO SCH (09:54)
[2016-12-07] MEDS: CEPHALEXIN 500 MG CAP PO SCH ×2 (09:54→22:00)
[2016-12-07] MEDS: GABAPENTIN 300 MG CAP PO SCH ×2 (15:21→22:00)
[2016-12-07 18:00] VITALS: BP 145/71
[2016-12-07] MEDS: traZODone 50 MG TAB PO SCH (21:00)
[2016-12-07] MEDS: SIMVASTATIN 40 MG TAB PO SCH (22:00)
[2016-12-07] MEDS: hydrOXYzine 50 MG TAB PO PRN (22:00)
[2016-12-07] MEDS: DULoxetine 30 MG CAP (CYMBALTA) PO SCH (22:01)
[2016-12-08 06:37] VITALS: BP 131/82
[2016-12-08] MEDS: [UNRECOGNIZED DRUG - OTHER] OU SCH ×2 (06:40→17:27)
[2016-12-08] MEDS: NORCO, ANEXSIA 5/325MG TABLET (HYDROcodone/ACETAMINOPHEN) PO PRN ×5 (06:42→22:59)
[2016-12-08] MEDS: GABAPENTIN 300 MG CAP PO SCH ×3 (09:17→22:55)
[2016-12-08] MEDS: CEPHALEXIN 500 MG CAP PO SCH ×2 (09:17→22:55)
[2016-12-08] MEDS: LISINOPRIL 40 MG TAB PO SCH (09:17)
[2016-12-08 18:00] VITALS: BP 128/60
[2016-12-08] MEDS: traZODone 50 MG TAB PO SCH (22:52)
[2016-12-08] MEDS: SIMVASTATIN 40 MG TAB PO SCH (22:55)
[2016-12-08] MEDS: hydrOXYzine 50 MG TAB PO PRN (22:55)
[2016-12-08] MEDS: DULoxetine 30 MG CAP (CYMBALTA) PO SCH (22:56)
[2016-12-09] MEDS: NORCO, ANEXSIA 5/325MG TABLET (HYDROcodone/ACETAMINOPHEN) PO PRN ×3 (06:03→14:15)
[2016-12-09 06:38] VITALS: BP 142/90
[2016-12-09] MEDS ORDERED: hydrOXYzine 50 MG TAB PO PRN (08:45)
[2016-12-09 09:07] VITALS: BP 142/90
[2016-12-09] MEDS: GABAPENTIN 300 MG CAP PO SCH (09:07)
[2016-12-09] MEDS: LISINOPRIL 40 MG TAB PO SCH (09:07)
[2016-12-09] MEDS: [UNRECOGNIZED DRUG - OTHER] OU SCH (09:07)
[2016-12-09] MEDS: hydrOXYzine 50 MG TAB PO PRN (09:10)
[2016-12-09] MEDS ORDERED: CYMB60CA3 PO (14:05)
[2016-12-09] MEDS ORDERED: GABA-282 PO (14:05)
--- NOTE | 2016-12-09 14:05 | IPN ---
DATE: 12/08/2016 This was a visit recorded on 12/08/2016 but dictated on 12/09/2016. Also, of note, this is my first visit with the patient, and he has been here for several days and this was mostly an introduction to me being his new doctor and his bringing me up to date on his mental and physical status. Subjectively, this patient states that he overall feels better and he is coming to terms with the of his mother two years ago and the of another woman who was like his second mother a couple of weeks ago. This coming weekend will be her . This patient also suffers from numerous other physical ailments, such as musculoskeletal related to nerve impingement, and he is treated with various medications targeting both pain, muscle spasm, and his mood. Objectively, the patient states that slowly but surely, even though his mood swings are still present, they are diminishing in frequency and in intensity, and would like to resume his Valium for muscle relaxation. He said this medication helped him the most. The patient will be meeting with his family today and immediate upcoming discharge plans will be discussed. ASSESSMENT: This patient essentially is responding to his current medication regimen that includes the following psychotropic agents: - duloxetine for depression - hydralazine for anxiety - Valium for both anxiety and muscular spasm It is his provider's opinion that this patient is on very sedating medication and his mood stabilization may be being impinged by such sedation. So his medication will be changed in the following manner: Valium will not be reinstituted. Instead, he will receive Ativan in its place, which has a shorter half life and does not tend to accumulate. This patient would like to resume lithium carbonate and this will be granted. He will be given 300 mg at bedtime. This is the dose he normally has taken that he has found beneficial for his primarily depression. He will also continue 200 mg of sertraline. This patient, plan gannon, agrees to the discussion about his medication and the recommended changes. Again, this is primarily an initial encounter introducing myself, as well as the patient introducing himself and his worries and complaints and his overall health to this provider. He will be seen tomorrow for further evaluation. This visit lasted approximately 25 minutes.
[2016-12-09] MEDS ORDERED: ATIV1TAB10 PO (14:06)
[2016-12-09] MEDS ORDERED: benadryl PO (14:38)
--- NOTE | 2017-01-29 20:53 | MHDS ---
DATE OF ADMISSION: 11/26/2016 DATE OF DISCHARGE: 12/09/2016 This 56-year-old male presents with sudden suicidal ideation as he was thinking of the deaths of several close friends and relatives over the recent years. 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 He began crying thinking of his mother's slow from Alzheimer's two years ago. His grief escalated to an acute hysteria. This worried his friends included his pump installer who orchestrated his admission to [facility] at [facility]. Of note, this man is a produce of a very dysfunctional family of origin. At first he tried to escape his ambush by using AOD but to no avail. He later found that taken care of the ill took his mind off his emotional pain. He became obsessed with this "mission" suggesting a process addiction. As he got older, he developed osteoarthritis of the neck and lower back. This limited his activity and the pain was hard to bare. He was later prescribed medication for both pain and muscle spasms. On admission he was taking both [place] and Valium. This use apparently has escalated over time, as verified by [facility] (prescription monitoring program). Of note, addiction and mood disorders are rampit in this man's family history. MEDICAL EVALUATION: No new disorders were discovered on a thorough exam including laboratory studies. So his diagnoses remained spinal osteoarthritis, hypertension and hyperlipidemia. HOSPITAL COURSE: This man's anxiety and depression including his suicidal preoccupation improved greatly in response to his quick engagement of the greco milieu and the various groups he attended. DISCHARGE MENTAL STATUS: APPEARANCE: Appropriate dress and grooming. Appears his stated age. No apparent physical distress. BEHAVIOR: Very engaging and cooperative. PSYCHOMOTOR: Calm. SPEECH: Articulate with normal rate and volume. MOOD: Better. AFFECT/MOOD: Congruent. THOUGHT PROCESS: Lucid, linear and goal-directed. THOUGHT CONTENT: No psychotic or lethal ideation was elicited. PERCEPTION: Patient denies hallucinations. INSIGHT: Fair. JUDGMENT: Good. IMPULSE CONTROL: Good. COGNITION: Grossly intact. DISCHARGE ASSESSMENT: PSYCHOLOGICAL: 1. Depression. 2. Anxiety. 3. Chronic pain syndrome. PHYSICAL: 1. Spinal osteoarthritis. 2. Hypertension. 3. Hyperlipidemia. DISCHARGE PLAN: DISPOSITION: The patient's home. PSYCHOTROPIC MEDICATION PROVIDED: (7 day supply with three refills.) 1. Duloxetine, 60 mg daily. 2. Gabapentin 300 mg three times a day. 3. [place] carbonate 300 mg at bedtime. 4. Lorazepam 0.5 mg three times a day. PSYCHOSOCIAL MANAGEMENT: Appointments were made for the patient to attend his local clinical mental health center. It is this writers opinion that his therapy should be multimodal and it should address both his codependency, his Neglect of his own needs, his chronic pain.\\ LETHAL RISK: Low. SAFETY PLAN: Sound. Psychiatric discharge management by this provider lasted 30 minutes. ROSARIO
== END 2016-12-09 15:15 | disposition home or self-care (01) | DRG 754 ==
LOC: M ED 06:52 → M PSY 15:53
PROVIDERS: ADMIT Psychiatry & Neurology Psychiatry; ATTEND Psychiatry & Neurology Psychiatry
DX: F32.9 Major depressive disorder, single episode, unspecified (principal); I10 Essential (primary) hypertension; R45.851 Suicidal ideations; F41.9 Anxiety disorder, unspecified; G89.4 Chronic pain syndrome; E78.5 Hyperlipidemia, unspecified; M54.5 Low back pain; M50.10 Cervical disc disorder with radiculopathy, unspecified cervical region; F11.90 Opioid use, unspecified, uncomplicated; L23.1 Allergic contact dermatitis due to adhesives; M51.16 Intervertebral disc disorders with radiculopathy, lumbar region; R94.31 Abnormal electrocardiogram [ECG] [EKG]; Z79.899 Other long term (current) drug therapy; Z81.8 Family history of other mental and behavioral disorders; Z87.891 Personal history of nicotine dependence; Z83.2 Family history of diseases of the blood and blood-forming organs and certain disorders involving the immune mechanism; Z80.9 Family history of malignant neoplasm, unspecified; Z88.6 Allergy status to analgesic agent

== ENCOUNTER 2016-12-24 00:39 | Emergency (ER) | payer MEDICAID, OTHER ==
[~2016-12-24] VITALS: Ht 177.8 cm; Wt 113.4 kg
[~2016-12-24 00:39] MED LIST changes: +ATIV1TAB10 PO; +BUPR300T34 PO; +CYMB60CA3 PO; +DILT240C5 PO; -DILT240C75 PO; +GABA300C3 PO; +GABA600T PO; +HYDR-3719 PO; +LITH300C PO; +SERT-138 PO; +benadryl PO
[2016-12-24] MEDS ORDERED: ONDANSETRON 4 MG ORAL DISINTEGRATING TAB (S0181) PO ONE (02:00)
[2016-12-24] MEDS ORDERED: HYDROmorphone HCL 1 MG/ML SYRINGE (J1170) IM ONE ×2 (02:00→04:30)
[2016-12-24 02:38] VITALS: BP 159/86
== END 2016-12-24 04:57 | disposition home or self-care (01) ==
LOC: M ED 02:02
DX: G89.29 Other chronic pain (principal); M54.5 Low back pain; Z88.6 Allergy status to analgesic agent; Z79.899 Other long term (current) drug therapy
CPT/HCPCS: 96372; 99282; J1170

== ENCOUNTER 2017-01-07 15:03 | Emergency (ER) | payer MEDICAID, OTHER ==
[~2017-01-07] VITALS: Ht 177.8 cm; Wt 113.4 kg
[~2017-01-07 15:03] MED LIST changes: -DILT240C5 PO; +DILT240C75 PO; +GABA-282 PO; -GABA300C3 PO
[2017-01-07] MEDS ORDERED: HYDROmorphone HCL 1 MG/ML SYRINGE (J1170) IM ONE (16:30)
[2017-01-07 17:12] VITALS: BP 147/83
== END 2017-01-07 17:40 | disposition home or self-care (01) ==
LOC: M ED 16:07
DX: G89.29 Other chronic pain (principal); M54.5 Low back pain; Z87.442 Personal history of urinary calculi; Z79.899 Other long term (current) drug therapy; Z88.8 Allergy status to other drugs, medicaments and biological substances; Z87.891 Personal history of nicotine dependence
CPT/HCPCS: 96372; 99282; J1170; J3360

== ENCOUNTER 2017-01-10 23:50 | Emergency (ER) | payer OTHER ==
[~2017-01-10] VITALS: Ht 177.8 cm; Wt 113.4 kg
[2017-01-10] MEDS ORDERED: OXYC15TA76 PO (23:59)
[2017-01-11] MEDS ORDERED: BENA25CA4 PO (00:01)
[2017-01-11] MEDS ORDERED: NS 1,000 ML IV ONE (01:15)
[2017-01-11] MEDS ORDERED: KETOROLAC 30 MG/ML VIAL (J1885) IV ONE (01:30)
[2017-01-11] MEDS ORDERED: diphenhydrAMINE INJ 50MG/ML VIAL (J1200) IV ONE ×2 (01:30→02:45)
[2017-01-11] MEDS ORDERED: METOCLOPRAMIDE INJ 10MG/2ML VIAL (J2765) IV ONE ×2 (01:30→02:45)
[2017-01-11 04:42] VITALS: BP 149/85
== END 2017-01-11 04:44 | disposition home or self-care (01) ==
LOC: M ED 01-11 01:45
DX: G43.909 Migraine, unspecified, not intractable, without status migrainosus (principal); Z79.899 Other long term (current) drug therapy; Z88.6 Allergy status to analgesic agent
CPT/HCPCS: 96374; 96375; 96376; 99282; J1200; J1885; J2765

== ENCOUNTER 2017-02-03 03:41 | Emergency (ER) | payer MEDICAID, OTHER ==
[~2017-02-03] VITALS: Ht 177.8 cm; Wt 113.4 kg
[~2017-02-03 03:41] MED LIST changes: +BENA25CA4 PO; +OXYC15TA76 PO
[2017-02-03 04:05] VITALS: BP 180/94
[2017-02-03] MEDS ORDERED: HYDROmorphone HCL 1 MG/ML SYRINGE (J1170) IM ONE (05:15)
[2017-02-03] MEDS ORDERED: HYDROmorphone HCL 1 MG/ML SYRINGE (J1170) As Ordered ONE (05:17)
== END 2017-02-03 06:32 | disposition home or self-care (01) ==
LOC: M ED 04:38
DX: M54.5 Low back pain (principal); G89.29 Other chronic pain; Z79.899 Other long term (current) drug therapy; Z88.8 Allergy status to other drugs, medicaments and biological substances
CPT/HCPCS: 96372; 99281; J1170

== ENCOUNTER → 2017-02-05 | Outpatient (CLI) | payer OTHER ==
[~2017-02-05] MED LIST changes: +BUPR300T34; +CART240C; +TRAM50TA2 PO
[2017-02-05 19:44] LABS: BASO % 0.5 % (0.0-1.0); EOS # 0.5 K/mm3 (0.0-0.50); EOS % 5.3 % (0.0-3.0); LARGE UNSTAINED CELL # 0.2 K/mm3 (0.0-0.4); LARGE UNSTAINED CELL % 1.9 % (0.0-4.0); LYMPH # 3.7 K/mm3 (1.5-4.5); LYMPH % 41.3 % (24.0-44.0); MEAN CORPUSCULAR HEMOGLOBIN 30.4 pg (27.0-33.0); MEAN CORPUSCULAR HGB CONC 34.6 g/dl (32.0-36.5); MEAN CORPUSCULAR VOLUME 87.8 fl (80.0-96.0); MONO # 0.4 K/mm3 (0.0-0.8); MONO % 4.8 % (0.0-5.0); NEUTROPHILS # 4.2 K/mm3 (1.8-7.7); NEUTROPHILS % 46.2 % (36.0-66.0); PLATELET COUNT, AUTOMATED 284 k/mm3 (150-450); RED CELL DISTRIBUTION WIDTH 12.5 % (11.5-14.5)
[2017-02-05 20:17] LABS: ANION GAP 5 MEQ/L (8-16); BLOOD UREA NITROGEN 11 MG/DL (7-18); CALCIUM LEVEL 8.5 MG/DL (8.5-10.1); CARBON DIOXIDE LEVEL 32 MEQ/L (21-32); CHLORIDE LEVEL 103 MEQ/L (98-107); CREATININE FOR GFR 1.39 MG/DL (0.70-1.30); GLOMERULAR FILTRATION RATE > 60.0 (>56); GLUCOSE, FASTING 105 MG/DL (70-105); PHOSPHORUS LEVEL 4.2 MG/DL (2.5-4.9); POTASSIUM SERUM 3.5 MEQ/L (3.5-5.1); SODIUM LEVEL 140 MEQ/L (136-145); THYROXINE (T4) 8.5 UG/DL (4.5-12.0)
[2017-02-05 20:20] LABS: LITHIUM LEVEL 0.21 MEQ/L (0.60-1.20)
== END ==
LOC: M LAB 19:10
PROVIDERS: ATTEND Anesthesiology Pain Medicine
DX: Z51.81 Encounter for therapeutic drug level monitoring (principal); Z79.899 Other long term (current) drug therapy

== ENCOUNTER 2017-02-09 11:32 | Emergency (ER) | payer OTHER ==
[~2017-02-09] VITALS: Ht 177.8 cm; Wt 113.4 kg
[~2017-02-09 11:32] MED LIST changes: -BUPR300T34; -CART240C; -TRAM50TA2 PO
[2017-02-09 11:33] VITALS: BP 161/74
[2017-02-09] MEDS ORDERED: SERT50TA PO (11:41)
[2017-02-09] MEDS ORDERED: BUPR300T34 (11:41)
[2017-02-09] MEDS ORDERED: CART240C (11:41)
[2017-02-09] MEDS ORDERED: TRAM50TA2 PO (12:02)
== END 2017-02-09 12:22 | disposition home or self-care (01) ==
LOC: M ED 12:12
DX: M67.432 Ganglion, left wrist (principal); G56.02 Carpal tunnel syndrome, left upper limb; G43.909 Migraine, unspecified, not intractable, without status migrainosus; N40.1 Benign prostatic hyperplasia with lower urinary tract symptoms; M54.9 Dorsalgia, unspecified; Z87.442 Personal history of urinary calculi; Z79.899 Other long term (current) drug therapy; Z88.6 Allergy status to analgesic agent

== ENCOUNTER → 2017-02-10 | Outpatient (CLI) | payer OTHER ==
[~2017-02-10] MED LIST changes: +BUPR300T34; +CART240C; +TRAM50TA2 PO
--- NOTE | 2017-02-11 02:15 | REP ---
Clinical: Pain. Technique: AP, lateral, bilateral oblique views of the left wrist. Findings: No acute fracture or dislocation. Mild arthritic changes involving the first and second carpometacarpal joints including periarticular sclerosis and a subchondral erosion along the inferior margin of the trapezium. Surrounding soft tissues unremarkable. Impression: Mild arthritic changes suggested at the first and second carpometacarpal joints. Otherwise age appropriate examination by radiographic evaluation. Signed by Isaac Grullon MD 02/11/2017 02:07 A
== END ==
LOC: M LAB 15:19
PROVIDERS: ATTEND Family Medicine Addiction Medicine
DX: M25.532 Pain in left wrist (principal)

== ENCOUNTER 2017-02-21 00:10 | Inpatient (IN) | payer OTHER ==
[2017-02-20] MEDS: LITHIUM CARBONATE 300 MG CAP PO SCH (21:00)
[2017-02-21] VITALS (9 sets, daily range): BP systolic 134–171; BP diastolic 64–103
[~2017-02-21] VITALS: Ht 177.8 cm; Wt 114.2 kg
[~2017-02-21 00:10] MED LIST changes: -BUPR300T34
[2017-02-21] MEDS ORDERED: fentaNYL 100 MCG/2 ML INJECTION (J3010) IV ONE (00:45)
[2017-02-21 01:00] LABS: BASO % 0.4 % (0.0-1.0); EOS # 0.6 K/mm3 (0.0-0.50); EOS % 5.8 % (0.0-3.0); LARGE UNSTAINED CELL # 0.2 K/mm3 (0.0-0.4); LARGE UNSTAINED CELL % 1.7 % (0.0-4.0); LYMPH # 4.2 K/mm3 (1.5-4.5); LYMPH % 44.3 % (24.0-44.0); MEAN CORPUSCULAR HEMOGLOBIN 29.7 pg (27.0-33.0); MEAN CORPUSCULAR HGB CONC 33.4 g/dl (32.0-36.5); MEAN CORPUSCULAR VOLUME 88.9 fl (80.0-96.0); MONO # 0.5 K/mm3 (0.0-0.8); MONO % 4.7 % (0.0-5.0); NEUTROPHILS # 4.1 K/mm3 (1.8-7.7); NEUTROPHILS % 43.2 % (36.0-66.0); PLATELET COUNT, AUTOMATED 265 k/mm3 (150-450); RED CELL DISTRIBUTION WIDTH 12.4 % (11.5-14.5); WHITE BLOOD COUNT 9.6 K/mm3 (4.0-10.0)
[2017-02-21 01:07] LABS: ANION GAP 6 MEQ/L (8-16); BLOOD UREA NITROGEN 14 MG/DL (7-18); CALCIUM LEVEL 8.9 MG/DL (8.5-10.1); CARBON DIOXIDE LEVEL 29 MEQ/L (21-32); CHLORIDE LEVEL 105 MEQ/L (98-107); CREATININE FOR GFR 1.33 MG/DL (0.70-1.30); GLOMERULAR FILTRATION RATE > 60.0 (>56); GLUCOSE, FASTING 100 MG/DL (70-105); POTASSIUM SERUM 3.7 MEQ/L (3.5-5.1); SODIUM LEVEL 140 MEQ/L (136-145)
--- NOTE | 2017-02-21 01:50 | REPUSA ---
CLINICAL HISTORY: Syncope. TECHNIQUE: Multiple axial brain CT scan sections were obtained from base to vertex without contrast a dministration. COMMENTS: The study shows normal configuration of sella turcica. There are no intra or extra-axial collections. There is no mass effect or midline shift. There is no evidence of hematoma formation. No hydrocephal us is present. No abnormal calcifications are noted. No significant abnormalities are seen either in the posterior fossa or supratentorial compartment. Mild chronic mucosal inflammatory changes of the ethmoid air cells. The remaining sinuses and mastoid air cells are patent. IMPRESSION: Chronic ethmoid sinusitis. No evidence of acute intracranial pathology. Thank you for your kind referral of this patient.
--- NOTE | 2017-02-21 02:00 | REPUSA ---
CLINICAL HISTORY: Back pain. TECHNIQUE: Multiple axial images were obtained through the L1-L2, L2-L3, L3-L4, L4-L5 and L5-S1 inter spaces. Images were also reconstructed in coronal and sagittal planes. COMMENTS: There is no fracture visualized. The paraspinal soft tissues are unremarkable. There are no lytic or blastic lesions. Straightening of lumbar lordosis is seen, suggesting muscular spasm. There is evidence of multilevel disk disease, demonstrated by osteophytosis ad endplate sclerosis. Evaluation of individual levels reveals the following: At L4-L5 and L5-S1, broad-based disk protrusion. Mild bilateral neural foramina narrowing. No signifi cant stenosis of the spinal canal. At L3-L4, broad-based disk bulge, results in mild bilateral foraminal narrowing. Canal is patent. L1-L2 and L2-L3 levels are unremarkable. IMPRESSION: At L4-L5 and L5-S1, broad-based disk protrusion. Mild bilateral neural foramina narrowing. No signifi cant stenosis of the spinal canal. At L3-L4, broad-based disk bulge, results in mild bilateral foraminal narrowing. Canal is patent. L1-L2 and L2-L3 levels are unremarkable. Thank you for your kind referral of this patient.
[2017-02-21] MEDS ORDERED: LORA-376 PO (03:11)
[2017-02-21] MEDS ORDERED: GABA-282 PO (03:11)
[2017-02-21] MEDS ORDERED: HYDROmorphone HCL 1 MG/ML SYRINGE (J1170) IV ONE (04:00)
[2017-02-21] MEDS ORDERED: LORazepam 0.5 MG TAB PO PRN (04:15)
[2017-02-21] MEDS ORDERED: oxyCODONE 5MG TAB PO PRN (04:15)
[2017-02-21] MEDS ORDERED: BISACODYL 5 MG TAB PO PRN (04:15)
[2017-02-21] MEDS ORDERED: ONDANSETRON 4MG/2ML VIAL (J2405) IV PRN (04:15)
[2017-02-21 04:28] LABS: T UPTAKE 32 % (33-40); THYROXINE (T4) 6.8 UG/DL (4.5-12.0)
[2017-02-21 04:41] LABS: LITHIUM LEVEL < 0.20 MEQ/L (0.60-1.20)
[2017-02-21] MEDS ORDERED: SLF 3 ML SYR IV PRN (05:30)
[2017-02-21 06:50] LABS: BASO # 0.1 K/mm3 (0.0-0.2); BASO % 0.8 % (0.0-1.0); EOS # 0.6 K/mm3 (0.0-0.50); EOS % 7.6 % (0.0-3.0); LARGE UNSTAINED CELL # 0.1 K/mm3 (0.0-0.4); LARGE UNSTAINED CELL % 1.6 % (0.0-4.0); LYMPH # 3.3 K/mm3 (1.5-4.5); LYMPH % 37.8 % (24.0-44.0); MEAN CORPUSCULAR HGB CONC 34.7 g/dl (32.0-36.5); MEAN CORPUSCULAR VOLUME 86.6 fl (80.0-96.0); MONO # 0.5 K/mm3 (0.0-0.8); MONO % 6.2 % (0.0-5.0); NEUTROPHILS # 3.8 K/mm3 (1.8-7.7); NEUTROPHILS % 46.1 % (36.0-66.0); PLATELET COUNT, AUTOMATED 266 k/mm3 (150-450); RED CELL DISTRIBUTION WIDTH 12.5 % (11.5-14.5); WHITE BLOOD COUNT 8.3 K/mm3 (4.0-10.0)
[2017-02-21] MEDS: SLF 3 ML SYR IV SCH ×3 (06:54→21:04)
[2017-02-21 07:05] LABS: ALBUMIN 3.6 GM/DL (3.2-5.2); ALBUMIN/GLOBULIN RATIO 0.86 (1.00-1.93); ALKALINE PHOSPHATASE 72 U/L (45-117); ALT/SGPT 24 U/L (12-78); ANION GAP 7 MEQ/L (8-16); AST/SGOT 14 U/L (15-37); BILIRUBIN,TOTAL 0.2 MG/DL (0.2-1.0); BLOOD UREA NITROGEN 14 MG/DL (7-18); CALCIUM LEVEL 8.5 MG/DL (8.5-10.1); CARBON DIOXIDE LEVEL 30 MEQ/L (21-32); CHLORIDE LEVEL 104 MEQ/L (98-107); CREATININE FOR GFR 1.27 MG/DL (0.70-1.30); GLOMERULAR FILTRATION RATE > 60.0 (>56); GLUCOSE, FASTING 130 MG/DL (70-105); MAGNESIUM LEVEL 1.9 MG/DL (1.8-2.4); POTASSIUM SERUM 3.4 MEQ/L (3.5-5.1); SODIUM LEVEL 141 MEQ/L (136-145); TOTAL PROTEIN 7.8 GM/DL (6.4-8.2)
[2017-02-21] MEDS ORDERED: POTASSIUM CHLORIDE 10 MEQ SR TABLET PO ONE (07:30)
[2017-02-21] MEDS: LISINOPRIL 40 MG TAB PO SCH (08:48)
[2017-02-21] MEDS: GABAPENTIN 300 MG CAP PO SCH ×3 (08:48→20:03)
[2017-02-21] MEDS: SERTRALINE HCL 50 MG TAB PO SCH (08:49)
[2017-02-21] MEDS: SIMVASTATIN 40 MG TAB PO SCH (08:49)
[2017-02-21] MEDS: buPROPion **XL** TABLET 150MG (WELLBUTRIN XL) PO SCH (08:49)
[2017-02-21] MEDS: MORPHINE 2 MG/ML 1ML SYRINGE IV PRN ×4 (08:52→17:21)
[2017-02-21] MEDS: HEPARIN SOD (PORCINE) 5000 UNITS/ML VIAL SC SCH ×3 (08:55→21:03)
--- NOTE | 2017-02-21 08:58 | IPNPDOC ---
Subjective Date Seen The patient was seen on 02/21/17. Subjective Chief Complaint/HPI The patient is a 56-year-old male admitted with a reason for visit of Syncope And Collapse. Events since last encounter Feeling well this morning- anxious about being in hospital, interested in the upcoming workup- remembers a positive interaction with Estrellitashagufta Portillos during his last hospitalization, no chest pain, not short of breath Pulmonary: Denies: Dyspnea, Cough Cardiovascular: Denies: Chest Pain, Palpitations Gastrointestinal: Denies: Nausea, Vomiting, Abdominal Pain Objective Physical Examination General Exam: Positive: Alert, No Acute Distress ENT Exam: Positive: Mucous membr. moist/pink Neck Exam: Positive: Supple Chest Exam: Positive: Clear to auscultation, Diminished, Negative: Rales, Rhonchi, Wheezing Heart Exam: Positive: Rate Normal, Regular Rhythm Abdomen Exam: Positive: Normal bowel sounds, Soft, Negative: Tenderness Extremity Exam: Negative: Edema Psych Exam: Positive: Anxiety Assessment /Plan Problems (1) Syncope and collapse Status: Acute Problem Text: Unclear etiology- elements of neuro and cardiogenic continue telemetry EEG tomorrow MRI brain 2D Echo Carotid- pending (2) Depression Status: Chronic (3) HTN (hypertension) Status: Chronic (4) HLD (hyperlipidemia) Status: Chronic (5) Chronic back pain Status: Acute Problem Text: Acute on chronic will resume home dose pain meds, add morphine as needed for acute symptoms related to fall plans for c5-6 Plan/VTE VTE Prophylaxis Ordered?: Yes VS, I&O, 24H, Fishbone Vital Signs/I&O Vital Signs Date Time Temp Pulse Resp B/P (MAP) Pulse Ox O2 Delivery O2 Flow Rate FiO2 02/21/17 08:00 98.2 76 18 134/64 (87) 97 Room Air Laboratory Data 24H LABS Laboratory Tests 2 02/21/17 00:43: White Blood Count 9.6, Red Blood Count 4.18L, Hemoglobin 12.4L, Hematocrit 37.1L , Mean Corpuscular Volume 88.9, Mean Corpuscular Hemoglobin 29.7, Mean Corpuscular Hemoglobin Concent 33.4, Red Cell Distribution Width 12.4, Platelet Count 265, Neutrophils (%) (Auto) 43.2, Lymphocytes (%) (Auto) 44.3H, Monocytes (%) (Auto) 4.7, Eosinophils (%) (Auto) 5.8H, Basophils (%) (Auto) 0.4, Neutrophils # (Auto) 4.1, Lymphocytes # (Auto) 4.2, Monocytes # (Auto) 0.5, Eosinophils # (Auto) 0.6H, Basophils # (Auto) 0.0, Large Unclassified Cells % 1.7, Large Unclassified Cells # 0.2, Anion Gap 6L, Glomerular Filtration Rate > 60.0, Blood Urea Nitrogen 14, Creatinine 1.33H, Sodium Level 140, Potassium Level 3.7, Chloride Level 105, Carbon Dioxide Level 29, Calcium Level 8.9, Total Creatine Kinase 288, Creatine Kinase MB < 1.0, Creatine Kinase MB Relative Index 0.34, Troponin I < 0.02, Thyroid Stimulating Hormone (TSH) 4.840H , Free Thyroxine Index 2.2, Thyroxine (T4) 6.8, Triiodothyronine (T3) Uptake 32L , [place] Level < 0.20L, Ethyl Alcohol Level < 0.003 02/21/17 06:21: Anion Gap 7L, Glomerular Filtration Rate > 60.0, Blood Urea Nitrogen 14, Creatinine 1.27, Sodium Level 141, Potassium Level 3.4L, Chloride Level 104, Carbon Dioxide Level 30, Calcium Level 8.5, Total Creatine Kinase 274, Creatine Kinase MB 1.0, Creatine Kinase MB Relative Index 0.36, Troponin I < 0.02, Aspartate Amino Transf (AST/SGOT) 14L, Alanine Aminotransferase (ALT/SGPT) 24, Alkaline Phosphatase 72, Total Bilirubin 0.2, Total Protein 7.8, Albumin 3.6, Magnesium Level 1.9, Albumin/Globulin Ratio 0.86L 02/21/17 06:22: White Blood Count 8.3, Red Blood Count 4.18L, Hemoglobin 12.6L, Hematocrit 36.3L , Mean Corpuscular Volume 86.6, Mean Corpuscular Hemoglobin 30.0, Mean Corpuscular Hemoglobin Concent 34.7, Red Cell Distribution Width 12.5, Platelet Count 266, Neutrophils (%) (Auto) 46.1, Lymphocytes (%) (Auto) 37.8, Monocytes ( %) (Auto) 6.2H, Eosinophils (%) (Auto) 7.6H, Basophils (%) (Auto) 0.8, Neutrophils # (Auto) 3.8, Lymphocytes # (Auto) 3.3, Monocytes # (Auto) 0.5, Eosinophils # (Auto) 0.6H, Basophils # (Auto) 0.1, Large Unclassified Cells % 1.6, Large Unclassified Cells # 0.1 CBC/BMP Laboratory Tests 02/21/17 00:43 Red Blood Count 4.18 L, Mean Corpuscular Volume 88.9, Mean Corpuscular Hemoglobin 29.7, Mean Corpuscular Hemoglobin Concent 33.4, Red Cell Distribution Width 12.4, Neutrophils (%) (Auto) 43.2, Lymphocytes (%) (Auto) 44.3 H, Monocytes (%) (Auto) 4.7, Eosinophils (%) (Auto) 5.8 H, Basophils (%) ( Auto) 0.4, Neutrophils # (Auto) 4.1, Lymphocytes # (Auto) 4.2, Monocytes # (Auto ) 0.5, Eosinophils # (Auto) 0.6 H, Basophils # (Auto) 0.0, Calcium Level 8.9, Total Creatine Kinase 288 02/21/17 06:21 Calcium Level 8.5, Total Creatine Kinase 274, Aspartate Amino Transf (AST/SGOT) 14 L, Alanine Aminotransferase (ALT/SGPT) 24, Alkaline Phosphatase 72, Total Bilirubin 0.2, Total Protein 7.8, Albumin 3.6 02/21/17 06:22 Red Blood Count 4.18 L, Mean Corpuscular Volume 86.6, Mean Corpuscular Hemoglobin 30.0, Mean Corpuscular Hemoglobin Concent 34.7, Red Cell Distribution Width 12.5, Neutrophils (%) (Auto) 46.1, Lymphocytes (%) (Auto) 37.8, Monocytes (%) (Auto) 6.2 H, Eosinophils (%) (Auto) 7.6 H, Basophils (%) ( Auto) 0.8, Neutrophils # (Auto) 3.8, Lymphocytes # (Auto) 3.3, Monocytes # (Auto ) 0.5, Eosinophils # (Auto) 0.6 H, Basophils # (Auto) 0.1 MARÍA JACQUES MD February 21, 2017 08:58
--- NOTE | 2017-02-21 09:22 | HPE ---
DATE OF ADMISSION: 02/21/2017 PRIMARY CARE PHYSICIAN: Dr. Jordan Dos Santos PSYCHIATRIST: Dr. Gunderson CODE STATUS: FULL CODE CHIEF COMPLAINT: One episode of syncope. HISTORY OF PRESENT ILLNESS: Mr. Machado is a 56-year-old male with multiple past medical history who presented to the emergency room (ER) due to experiencing one episode of syncope and confusion. The patient expressed that around 10 p.m., he went out for walking with a cane. For walking, due to back pain and chronic pain, the patient uses a cane to ambulate. The patient expressed that he walked about 25 minutes; and when he was walking toward the house, he felt lightheaded and dizzy. The patient leaned toward a car that was parked, and suddenly he experienced lower extremity weakness, and he collapsed. However, he did not lose his consciousness. The patient expressed that he used his cane to stand up; and when he stood up, he had another episode of lightheadedness and dizziness; and this time, he fell and hit his right side of his head to the car and fell backward; and he could not remember he fell backward. The patient, after hitting his head to the car, could not remember; and he lost his consciousness. However , the patient expressed that after he gained his consciousness, he was confused, and he only remembers that somebody was telling him to stay with him, and he was holding his hand. The first thing that the patient says after gaining his consciousness was "where I am," and the patient expressed that, according to the witness, the patient was unconscious for several seconds, and the patient was confused about several minutes after gaining consciousness. The patient expresses that, according to the witness, the patient had some seizure-type activity on his whole body. However, the patient cannot remember that episode. The patient denied losing his control on his bowel or bladder. The patient did not have fever, night sweats. However, the patient had some chills in the afternoon. The patient expressed that he is on multiple pain medications, and he did not take any extra dose of medication. The patient expressed, according to him, he is taking his oxycodone and gabapentin around 9 p.m. every night, and last night was the same. The patient denied chest pain, palpitations, racing or skipping heartbeat before, during, or after the episode. The patient expressed that this is the first time that he has been experience the syncope. However, the patient had another episode many years ago. The patient has weakness in his lower extremity due to back pain. However, the patient denied increase of the weakness or numbness or tingling. 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 ALLERGIES: IBUPROFEN. PAST MEDICAL HISTORY: 1. Chronic back pain. 2. Chronic neck pain. 3. Chronic general pain. 4. Hypertension. 5. Hyperlipidemia. 6. Depression. 7. History of nephrolithiasis. 8. Bulging disc in his lumbar area. PAST SURGICAL HISTORY: 1. Kidney stone removed. 2. Appendectomy. 3. Right trigger finger release. HOME MEDICATIONS: - bupropion 300 mg by mouth daily - diltiazem 240 mg by mouth daily - gabapentin 300 mg by mouth three times a day - lisinopril 40 mg by mouth daily - lithium carbonate 300 mg by mouth nightly - lorazepam 0.5 mg by mouth three times a day as needed anxiety - oxycodone 5 mg by mouth every 4 hours as needed pain - sertraline 100 mg by mouth daily - simvastatin 40 mg by mouth daily SOCIAL HISTORY: The patient lives with his . The patient expressed that he occasionally drinks wine. The patient has stopped smoking for the past 35 years. However, before that, the patient smoked about 4 or 5 years about 1/2 pack a day. The patient expressed that 35 years ago, he was smoking pot. The patient has one fish. The patient has not traveled outside of the [place]. 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 FAMILY HISTORY: The patient has four biological children who are healthy. However, the patient has total of ten children. The patient has thirteen brothers and sisters, and some of his brothers and sisters have heart issues, as well as kidneys and asthma. The patient's father due to cancer. However, the patient does not know what kind of cancer. The patient's mother due to Alzheimer disease. REVIEW OF SYSTEMS: GENERAL: The patient denies fever, night sweats. However, the patient had some chills. The patient denies weight loss or weight gain. HEENT: The patient denies acute vision or hearing changes. However, the patient expressed that when he was lightheaded and dizzy, he had some blurry vision. The patient denies taste change or problem with chewing food or sinusitis. NECK: The patient denies lumps, bumps, or decreased range of motion of his neck. HEART: The patient denies palpitations, racing or skipping heartbeat, chest pain. LUNGS: The patient denies shortness of breath, coughing. ABDOMEN: The patient denies nausea, vomiting, diarrhea, constipation, abdominal pain, hematochezia, hemoptysis. NEUROLOGIC: The patient denies history of transient ischemic attack (TIA), cerebrovascular accident (CVA), or seizure-type activities. PHYSICAL EXAMINATION: VITAL SIGNS: Temperature 98.1, pulse 80, respiratory rate 18, blood pressure 168/89, pulse oximetry 97% on room air. GENERAL APPEARANCE: The patient was lying in bed, no acute distress. The patient was awake, alert, and oriented to time, place, and person. HEENT: Normocephalic, atraumatic. Pupils are equal and reactive to light. Oral mucosa is moist. NECK: Soft, supple. No lymphadenopathy. No thyromegaly. No jugular venous distention (JVD). HEART: Regular rate and rhythm. Normal S1, S2. LUNGS: Clear breath sounds bilaterally. Good air movement. ABDOMEN: Soft. Nontender. Positive bowel sounds in all quadrants. EXTREMITIES: The patient has mild lower extremity edema. +2 pulses in both lower extremities. Feet are warm. The patient has decreased range of motion in both lower extremities due to back pain. The patient also has decreased strength in both lower extremities due to back pain (4/5 bilaterally). NEUROLOGICAL: Cranial nerves II-XII intact. No focal deficiencies. LABORATORY DATA: White blood cells 9.6, red blood cells 4.18, hemoglobin 12.4, hematocrit 37.1, MCV 88.9, MCH 29.7, MCHC 33.4, RDW 12.4, platelet count 265, neutrophil percentage 34.2, lymphocyte percentage 44.3, monocyte percentage 4.7, eosinophil percentage 5.8, basophil percentage 0.4, leukocyte percentage 1.7. Sodium 140, potassium 3.7, chloride 105, carbon dioxide 29, anion gap 6, BUN 14, creatinine 1.33, glomerular filtration rate more than 60, fasting glucose 100, calcium 8.9, total creatinine kinase 288, CK-MB less than 1, CK-MB relative index 0.34, troponin I less than 0.02, TSH 4.840. Toxicology: Ethyl alcohol less than 0.003. IMAGING TECHNIQUE: CT of the spine lumbar without contrast shows at L4-L5 and L5-S1 broad-based disc protrusion. Mild bilateral neural foramina narrowing. No significant stenosis of the spinal canal. At L3-L4, broad-based disc bulge, results in mild bilateral foraminal narrowing. Canal is patent. L1-L2 and L2-L3 levels are unremarkable. Head CT without contrast shows no evidence of acute intracranial pathology. Chest x-ray result is pending. Knee x-ray result is pending. ASSESSMENT AND PLAN: 1. Syncope. CT did not show any intracranial hemorrhage. Based on the physical examination, the patient does not have a new neurological deficit. Therefore, I did not order MRI/MRA at this time. I have ordered a carotid ultrasound, and due to possibility of cardiogenic abnormalities, I have ordered echocardiogram, as well as orthostatics, and the results are pending at this time. Thyroid-stimulating hormone (TSH) was elevated. Therefore, I have ordered a thyroid profile, and the result is pending. Due to the witness of a possibility of seizure activities, I have ordered electroencephalogram (EEG), and the result is pending at this time. The other possibility could be medication. Therefore, I have ordered lithium level, and the result is pending. The patient's alcohol level was in the normal range. It is also possible that it was caused by polypharmacy and overdose of medication. We will continue to monitor the patient. Also, we will repeat the cardiac marker two more times every 6 hours. 2. Depression. The patient is on lithium 300 mg by mouth nightly. I have ordered lithium level, and the result is pending at this time. Based on the result, we will adjust the dosage. Also, will continue the patient on bupropion 300 mg by mouth daily, as well as Zoloft 100 mg by mouth daily. 3. Anxiety. The patient is on 0.5 mg by mouth three times a day as needed anxiety. 4. Hypertension. We will continue the patient on current dosage of lisinopril 40 mg by mouth daily and diltiazem 240 mg by mouth daily. 5. Hyperlipidemia. We will continue the patient on simvastatin 40 mg by mouth daily. 6. Chronic low back pain/chronic neck pain. CT did not show any new pathology. We will continue the patient on home medications. 7. Acute kidney disease. At this time, no medications are required. We will continue monitoring the patient's kidney function. 8. Deep venous thrombosis (DVT) prophylaxis. The patient is on heparin 5000 units subcutaneously every 8 hours. My preceptor for this patient encounter was Dr. Sheri Bynum. The preceptor was physically present in the building during the encounter and was fully available. As needed, all aspects of the patient interview, examination, medical decision making process, and medical care plan development were reviewed and approved by the preceptor. The preceptor is aware and concurs with the plan as stated in the body of this note and will attest to such by his/her cosignature. ROSARIO
--- NOTE | 2017-02-21 09:26 | REP ---
CAROTID ULTRASOUND: Real-time ultrasound evaluation and duplex Doppler interrogation of the extracranial carotid vasculature is performed. There is mild plaquing and narrowing in both carotid bulbs extending into the internal and external carotid arteries. Luminal narrowing is less than 50%. There is no evidence of hemodynamically significant stenosis of either internal carotid artery. Normal flow velocities are seen. The vertebral arteries demonstrate normal direction of flow. RIGHT LEFT Peak systolic velocity ICA 83.7 cm/s 102.3 cm/s End diastolic velocity ICA 38.9 cm/s 53.7 cm/s Peak systolic velocity CCA 89.2 cm/s 70 cm/s Peak systolic velocity ECA 73.1 cm/s 79.7 cm/s ICA/CCA ratio 0.94 1.46 IMPRESSION: Bilateral luminal narrowing of the internal carotid arteries less than 50%. No evidence of hemodynamically significant stenosis. Signed by George Crooks MD 02/21/2017 09:18 A
[2017-02-21] MEDS: oxyCODONE 5MG TAB PO PRN ×3 (11:31→20:03)
[2017-02-21] MEDS ORDERED: MORPHINE 2 MG/ML 1ML SYRINGE IV ONE (18:45)
[2017-02-21] MEDS: LITHIUM CARBONATE 300 MG CAP PO SCH (20:03)
[2017-02-21] MEDS: MORPHINE 4 MG/ML 1ML SYRINGE IV PRN ×2 (20:51→23:40)
[2017-02-22] MEDS: oxyCODONE 5MG TAB PO PRN ×6 (00:02→21:16)
[2017-02-22 04:50] VITALS: BP 141/82
[2017-02-22 05:17] LABS: BASO % 0.8 % (0.0-1.0); EOS # 0.5 K/mm3 (0.0-0.50); LARGE UNSTAINED CELL # 0.2 K/mm3 (0.0-0.4); LARGE UNSTAINED CELL % 2.4 % (0.0-4.0); LYMPH % 41.5 % (24.0-44.0); MEAN CORPUSCULAR HGB CONC 34.3 g/dl (32.0-36.5); MEAN CORPUSCULAR VOLUME 87.3 fl (80.0-96.0); MONO # 0.6 K/mm3 (0.0-0.8); MONO % 8.3 % (0.0-5.0); NEUTROPHILS # 2.7 K/mm3 (1.8-7.7); NEUTROPHILS % 40.1 % (36.0-66.0); PLATELET COUNT, AUTOMATED 278 k/mm3 (150-450); RED CELL DISTRIBUTION WIDTH 12.5 % (11.5-14.5); WHITE BLOOD COUNT 6.8 K/mm3 (4.0-10.0)
[2017-02-22] MEDS: SLF 3 ML SYR IV SCH ×3 (05:22→20:35)
[2017-02-22] MEDS: MORPHINE 4 MG/ML 1ML SYRINGE IV PRN ×8 (05:22→22:47)
[2017-02-22] MEDS: HEPARIN SOD (PORCINE) 5000 UNITS/ML VIAL SC SCH ×3 (05:22→20:34)
[2017-02-22 05:40] LABS: ALBUMIN 3.6 GM/DL (3.2-5.2); ALBUMIN/GLOBULIN RATIO 0.84 (1.00-1.93); ALKALINE PHOSPHATASE 71 U/L (45-117); ALT/SGPT 24 U/L (12-78); ANION GAP 7 MEQ/L (8-16); AST/SGOT 14 U/L (15-37); BILIRUBIN,TOTAL 0.4 MG/DL (0.2-1.0); BLOOD UREA NITROGEN 10 MG/DL (7-18); CALCIUM LEVEL 8.6 MG/DL (8.5-10.1); CARBON DIOXIDE LEVEL 28 MEQ/L (21-32); CHLORIDE LEVEL 105 MEQ/L (98-107); CREATININE FOR GFR 1.13 MG/DL (0.70-1.30); GLOMERULAR FILTRATION RATE > 60.0 (>56); GLUCOSE, FASTING 112 MG/DL (70-105); MAGNESIUM LEVEL 2.2 MG/DL (1.8-2.4); POTASSIUM SERUM 3.9 MEQ/L (3.5-5.1); SODIUM LEVEL 140 MEQ/L (136-145); TOTAL PROTEIN 7.9 GM/DL (6.4-8.2)
--- NOTE | 2017-02-22 07:21 | ECHO ---
DATE OF PROCEDURE: 02/21/2017 REFERRING PHYSICIAN: Dr. Nicolás Zazueat, (medical receptionist medical assistant) INDICATION: Syncope. HEIGHT: 5 feet 10 inches. WEIGHT: 257 pounds. 2D MEASUREMENTS: Aortic root - 3.2 cm Left atrium 4.2 cm Ventricular septum - 1.43 cm Posterior wall - 1.40 cm Left ventricle diastole - 4.6 cm LVOT - 2.1 cm Inferior vena cava - 1.9 cm DOPPLER MEASUREMENTS: Aortic valve velocity - 176 cm/s LVOT velocity - 168 cm/s LVOT VTI - 24.7 cm Mitral E velocity - 8.0 cm/s Mitral A velocity - 76.5 cm/s. Mitral deceleration time 232 ms Very mild tricuspid regurgitation. Estimated right ventricle systolic pressure 31 mmHg by pulmonary acceleration time. MITRAL ANNULAR TISSUE DOPPLER: E prime septal 7.5 cm/s E prime lateral 14.7 cm/s DESCRIPTION: Rhythm was sinus. This is a moderately technically difficulty echocardiogram. No pericardial effusion. This is a 2D, M-mode, color flow Doppler and pulsed wave Doppler examination and included mitral annular tissue Doppler. CONCLUSIONS: 1. Mild concentric left ventricular hypertrophy. No regional wall motion abnormalities. Hyperdynamic LV systolic function. LVEF 75% by visual estimate. Normal LV diastolic function. 2. Moderate aortic valve sclerosis of a three-cuspid aortic valve. No aortic stenosis or regurgitation. 3. Mild mitral annular calcification. No mitral regurgitation. 4. Mild left atrial dilatation. 5. Suggestive of slight elevation of pulmonary artery systolic pressure. MTDD
--- NOTE | 2017-02-22 07:45 | REP ---
CHEST, PORTABLE: AP portable view of the chest is performed. There is no acute infiltrate. There is mild cardiomegaly. There is mild tortuosity of the thoracic aorta. IMPRESSION: No acute infiltrate. Mild cardiomegaly. Signed by George Crooks MD 02/22/2017 12:18 P
--- NOTE | 2017-02-22 07:45 | REP ---
RIGHT KNEE: Two views of the right knee are performed. There is a rounded calcific density at the lower pole of the patella which may represent an old fracture. There is no joint effusion. There is no acute fracture or dislocation. Signed by George Crooks MD 02/22/2017 12:19 P
[2017-02-22 08:00] VITALS: BP 143/77
[2017-02-22] MEDS: buPROPion **XL** TABLET 150MG (WELLBUTRIN XL) PO SCH (08:36)
[2017-02-22] MEDS: LISINOPRIL 40 MG TAB PO SCH (08:36)
[2017-02-22] MEDS: SERTRALINE HCL 50 MG TAB PO SCH (08:36)
[2017-02-22] MEDS: SIMVASTATIN 40 MG TAB PO SCH (08:36)
[2017-02-22] MEDS: GABAPENTIN 300 MG CAP PO SCH ×3 (08:36→20:34)
[2017-02-22 12:00] VITALS: BP 131/80
[2017-02-22 16:00] VITALS: BP 132/68
--- NOTE | 2017-02-22 16:21 | IPNPDOC ---
Subjective Date Seen The patient was seen on 02/22/17. Subjective Chief Complaint/HPI The patient is a 56-year-old male admitted with a reason for visit of Syncope And Collapse. Events since last encounter Feeling ok, pain more than normal in back, morphine useful, having bowel movements, anxious about the cause of his collapse Pulmonary: Denies: Dyspnea, Cough Cardiovascular: Denies: Chest Pain, Palpitations Gastrointestinal: Denies: Nausea, Vomiting, Abdominal Pain Objective Physical Examination General Exam: Positive: Alert, Cooperative, No Acute Distress ENT Exam: Positive: Mucous membr. moist/pink Neck Exam: Positive: Supple Chest Exam: Positive: Clear to auscultation, Diminished, Negative: Rales, Rhonchi, Wheezing Heart Exam: Positive: Rate Normal, Regular Rhythm Abdomen Exam: Positive: Normal bowel sounds, Soft, Negative: Tenderness Extremity Exam: Negative: Edema Psych Exam: Positive: Anxiety Assessment /Plan Problems (1) Syncope and collapse Status: Acute Problem Text: Unclear etiology- elements of neuro and cardiogenic continue telemetry- bradycardia while asleep EEG tomorrow-P MRI/MRA brain-pending 2D Echo- normal EF Carotid- WNL May d/c in 24-48 hours depending on clinical course (2) Depression Status: Chronic Problem Text: recent [facility] admission (3) HTN (hypertension) Status: Chronic (4) HLD (hyperlipidemia) Status: Chronic (5) Chronic back pain Status: Acute Problem Text: Acute on chronic will resume home dose pain meds, add morphine as needed for acute symptoms related to fall plans for c5-6 repair in [place] Plan/VTE VTE Prophylaxis Ordered?: Yes VS, I&O, 24H, [facility] Vital Signs/I&O Vital Signs Date Time Temp Pulse Resp B/P (MAP) Pulse Ox O2 Delivery O2 Flow Rate FiO2 02/22/17 15:50 18 02/22/17 12:00 96.8 73 131/80 (97) 98 Room Air I&O- Last 24 Hours up to 6 AM 02/22/17 06:00 Intake Total 1880 ml Output Total 2450 ml Balance -570 ml Laboratory Data 24H LABS Laboratory Tests 2 02/22/17 04:24: White Blood Count 6.8, Red Blood Count 4.43, Hemoglobin 13.3L, Hematocrit 38.7L , Mean Corpuscular Volume 87.3, Mean Corpuscular Hemoglobin 30.0, Mean Corpuscular Hemoglobin Concent 34.3, Red Cell Distribution Width 12.5, Platelet Count 278, Neutrophils (%) (Auto) 40.1, Lymphocytes (%) (Auto) 41.5, Monocytes ( %) (Auto) 8.3H, Eosinophils (%) (Auto) 7.0H, Basophils (%) (Auto) 0.8, Neutrophils # (Auto) 2.7, Lymphocytes # (Auto) 3.0, Monocytes # (Auto) 0.6, Eosinophils # (Auto) 0.5, Basophils # (Auto) 0.0, Large Unclassified Cells % 2.4 , Large Unclassified Cells # 0.2, Anion Gap 7L, Glomerular Filtration Rate > 60.0, Blood Urea Nitrogen 10, Creatinine 1.13, Sodium Level 140, Potassium Level 3.9, Chloride Level 105, Carbon Dioxide Level 28, Calcium Level 8.6, Aspartate Amino Transf (AST/SGOT) 14L, Alanine Aminotransferase (ALT/SGPT) 24, Alkaline Phosphatase 71, Total Bilirubin 0.4#, Total Protein 7.9, Albumin 3.6, Magnesium Level 2.2, Albumin/Globulin Ratio 0.84L CBC/BMP Laboratory Tests 02/22/17 04:24 Red Blood Count 4.43, Mean Corpuscular Volume 87.3, Mean Corpuscular Hemoglobin 30.0, Mean Corpuscular Hemoglobin Concent 34.3, Red Cell Distribution Width 12.5 , Neutrophils (%) (Auto) 40.1, Lymphocytes (%) (Auto) 41.5, Monocytes (%) (Auto ) 8.3 H, Eosinophils (%) (Auto) 7.0 H, Basophils (%) (Auto) 0.8, Neutrophils # ( Auto) 2.7, Lymphocytes # (Auto) 3.0, Monocytes # (Auto) 0.6, Eosinophils # (Auto ) 0.5, Basophils # (Auto) 0.0, Calcium Level 8.6, Aspartate Amino Transf (AST/ SGOT) 14 L, Alanine Aminotransferase (ALT/SGPT) 24, Alkaline Phosphatase 71, Total Bilirubin 0.4 #, Total Protein 7.9, Albumin 3.6 MARÍA JACQUES MD February 22, 2017 16:21
--- NOTE | 2017-02-22 16:40 | REP ---
MRA BRAIN WITHOUT CONTRAST: 02/22/2017: Clinical history: Syncope. Technique: 3D [id number] noncontrast gradient echo images were performed with MIP reformatting rotational display of the volume reconstructions about the longitudinal and horizontal axis of the brain. All source images are reviewed. Comparison: MRI brain today, CT brain 02/21/2017. Findings: There is a right dominant right vertebral artery contribution to the basilar artery without basilar stenosis, ectasia or aneurysm. The bilateral posterior cerebral arteries show normal origin off the basilar tip with a symmetric supply to the posterior fossa. Small posterior communicating artery noted on the left as a normal finding. The right carotid artery from the skull base through the cavernous sinus shows scattered plaques but no significant stenosis. Supraclinoid, A1 and M1 segments with scattered plaques but no significant stenosis. The A2 and M2-3 segments grossly intact. The left internal carotid from the skull base through the carotid siphon and supraclinoid segments were all unremarkable. A1 and M1 segments show focal stenosis. The junction of the A1 segment and A2 segments on the left side trifurcation vessels of the middle cerebral artery grossly intact. Impression: 1. There are a few scattered left intracerebral stenoses of the left anterior cerebral and middle cerebral arteries, but no vessel cutoff, aneurysm or significant stenosis in either right or left carotid systems. Scattered atherosclerotic plaques are suggested. Posterior circulation grossly intact. Signed by Rashawn Guzmán MD 02/22/2017 05:28 P
--- NOTE | 2017-02-22 16:51 | REP ---
MRI BRAIN WITHOUT CONTRAST: 02/22/2017. Comparison: MRA brain today, CT brain 02/21/2017. Clinical history: Syncope. Technique: Sagittal T1, axial T1, T2 FLAIR gradient-echo diffusion weighted images and ADC mapping sequences. Some motion blur artifact limits evaluation of the sagittal T1 and its repeat exam. The other sequences were all diagnostic quality. Findings: The axial images show lateral ventricles midline, symmetric and without dilatation. The third and fourth ventricles unremarkable. Basal ganglia symmetric and grossly unremarkable. T2 and FLAIR sequences show no significant periventricular, deep central or subcortical white matter hyperintense foci. Crooks-white junction differentiation was maintained. The cortical stripe preserved. There is only mild atrophy diffusely. There is no vascular territory infarct, hemorrhage, mass or mass effect. Brainstem intact. Cerebellum grossly unremarkable. Basal cisterns intact. Seventh/eighth cranial nerve complexes symmetric and normal. Some minor posterior inferior left mastoid air cell opacification. There is minor mucosal thickening of the maxillary sinus, ethmoids, frontal sinuses and sphenoid sinus barnes representing mild pansinusitis without air fluid levels or significant mucosal thickening. Orbits and contents grossly intact. The corpus callosum, optic chiasm and pituitary grossly normal. Craniocervical junction grossly intact. Impression: 1. There is no intracranial hemorrhage, acute infarct, edema, mass or mass effect. 2. Minimal pansinusitis with mucosal thickening seen in all sinuses. No air-fluid levels or destructive lesion. 3. Midline structures without acute finding. There is some dark signal representing calcium seen as the coarse chunky falcine calcifications in the midline on CT. Nothing else acute. Signed by Rashawn Guzmán MD 02/22/2017 05:28 P
[2017-02-22 20:00] VITALS: BP 154/83
[2017-02-22] MEDS: LITHIUM CARBONATE 300 MG CAP PO SCH (20:34)
--- NOTE | 2017-02-22 20:50 | ECGEPIP ---
Stationary ECG Study [facility] - ED Test Date: 2017-02-21 Pat Name: PARIS RICE Department: Room: [place] [address] Gender: M [employer]: kassandra : 1960 Requested By: MANJIT Arzola Order Number: [id number] Reading MD: Horacio Hebert Measurements Intervals [place] Rate: 89 P: 28 [place]: 171 QRS: -21 QRSD: 91 T: 28 QT: 352 QTc: 429 Interpretive Statements SINUS RHYTHM BORDERLINE LEFT AXIS DEVIATION MODERATE VOLTAGE CRITERIA FOR LVH, CONSIDER NORMAL VARIANT NONSPECIFIC T-WAVE ABNORMALITY DELAYED R WAVE PROGRESSION CW 11/20/16 RATE INCREASED Electronically Signed On 02-22-2017 20:49:56 EDT by Horacio Hebert
[2017-02-22 23:59] VITALS: BP 144/77
[2017-02-23] MEDS: oxyCODONE 5MG TAB PO PRN ×6 (02:16→23:14)
[2017-02-23 04:00] VITALS: BP 133/76
[2017-02-23] MEDS: MORPHINE 4 MG/ML 1ML SYRINGE IV PRN ×6 (04:26→23:21)
[2017-02-23] MEDS: HEPARIN SOD (PORCINE) 5000 UNITS/ML VIAL SC SCH ×3 (06:29→20:15)
[2017-02-23] MEDS: SLF 3 ML SYR IV SCH ×3 (06:29→20:15)
[2017-02-23 07:07] LABS: BASO % 0.8 % (0.0-1.0); EOS # 0.5 K/mm3 (0.0-0.50); LARGE UNSTAINED CELL # 0.1 K/mm3 (0.0-0.4); LARGE UNSTAINED CELL % 1.9 % (0.0-4.0); LYMPH # 2.8 K/mm3 (1.5-4.5); LYMPH % 39.3 % (24.0-44.0); MEAN CORPUSCULAR HEMOGLOBIN 29.9 pg (27.0-33.0); MEAN CORPUSCULAR HGB CONC 33.9 g/dl (32.0-36.5); MEAN CORPUSCULAR VOLUME 88.3 fl (80.0-96.0); MONO # 0.4 K/mm3 (0.0-0.8); MONO % 5.9 % (0.0-5.0); NEUTROPHILS # 3.1 K/mm3 (1.8-7.7); NEUTROPHILS % 45.2 % (36.0-66.0); PLATELET COUNT, AUTOMATED 280 k/mm3 (150-450); RED CELL DISTRIBUTION WIDTH 12.6 % (11.5-14.5); WHITE BLOOD COUNT 6.8 K/mm3 (4.0-10.0)
[2017-02-23 07:25] LABS: ALBUMIN 3.5 GM/DL (3.2-5.2); ALBUMIN/GLOBULIN RATIO 0.85 (1.00-1.93); ALKALINE PHOSPHATASE 73 U/L (45-117); ALT/SGPT 25 U/L (12-78); ANION GAP 6 MEQ/L (8-16); AST/SGOT 13 U/L (15-37); BILIRUBIN,TOTAL 0.3 MG/DL (0.2-1.0); BLOOD UREA NITROGEN 15 MG/DL (7-18); CALCIUM LEVEL 8.4 MG/DL (8.5-10.1); CARBON DIOXIDE LEVEL 30 MEQ/L (21-32); CHLORIDE LEVEL 104 MEQ/L (98-107); CREATININE FOR GFR 1.46 MG/DL (0.70-1.30); GLOMERULAR FILTRATION RATE > 60.0 (>56); GLUCOSE, FASTING 111 MG/DL (70-105); MAGNESIUM LEVEL 2.2 MG/DL (1.8-2.4); POTASSIUM SERUM 3.9 MEQ/L (3.5-5.1); SODIUM LEVEL 140 MEQ/L (136-145); TOTAL PROTEIN 7.6 GM/DL (6.4-8.2)
[2017-02-23 08:00] VITALS: BP_SYST 137; BP_SYST 138; BP_SYST 140; BP_DIAS 86; BP_DIAS 88; BP_DIAS 91
--- NOTE | 2017-02-23 08:02 | IPNPDOC ---
Subjective Date Seen The patient was seen on 02/23/17. Subjective Chief Complaint/HPI The patient is a 56-year-old male admitted with a reason for visit of Syncope And Collapse. General: Reports: Other Symptoms (experienced some dizziness this morning walking to the bathroom), Denies: ROS Unobtainable, Chills, Night Sweats, Fatigue, Malaise, Normal Appetite Constitutional: Denies: Chills, Fever, Malaise, Night Sweats, Weakness, Fatigue , Weight Loss, Lethargy, Other Eyes: Denies: Pain, Vision change, Conjunctivae inflammation, Eyelid inflammation, Redness, Other ENT: Denies: Head Aches, Ear Pain, Dysphagia, Sinus Congestion, Post Nasal Drip , Sore Throat, Epistaxis, Other Symptoms Skin: Denies: Rash, Lesions, Jaundice, Bruising, Itching, Dry, Breakdown, Nail Changes, Other Pulmonary: Denies: Dyspnea, Cough, Pleuritic Chest Pain, Other Symptoms Cardiovascular: Denies: Chest Pain, Palpitations, Orthopnea, Paroxysmal Noc. Dyspnea, Edema, Lt Headedness, Other Symptoms Gastrointestinal: Denies: Nausea, Vomiting, Abdominal Pain, Diarrhea, Constipation, Melena, Hematochezia, Other Symptoms Genitourinary: Denies: Dysuria, Frequency, Incontinence, Hematuria, Retention, Other Symptoms Musculoskeletal: Reports: Back Pain Objective Physical Examination General Exam: Positive: Alert, Cooperative, No Acute Distress Eye Exam: Positive: PERRLA, Conjunctiva & lids normal, EOMI, Negative: Sclera icteric ENT Exam: Positive: Atraumatic, Mucous membr. moist/pink Neck Exam: Positive: Supple Chest Exam: Positive: Clear to auscultation, Diminished, Negative: Rales, Rhonchi, Wheezing Heart Exam: Positive: Rate Normal, Regular Rhythm Telemetry: Positive: Bradycardia Abdomen Exam: Positive: Normal bowel sounds, Soft, Negative: Tenderness Extremity Exam: Negative: Edema Psych Exam: Positive: Anxiety, Oriented x 3 Assessment /Plan Problems (1) Syncope and collapse Status: Acute Discussed With: Patient Problem Specific Plan: Monitor Clinically Problem Text: Unclear etiology- elements of neuro and cardiogenic continue telemetry- bradycardia while asleep and this morning EEG pending MRI/MRA brain-WNL 2D Echo- normal EF Carotid- WNL Titrating cardizem for symptomatic bradycardia (2) Depression Status: Chronic Discussed With: Patient Problem Specific Plan: Monitor Clinically Problem Text: recent [facility] admission (3) HTN (hypertension) Status: Chronic Discussed With: Patient Problem Specific Plan: Monitor Clinically (4) HLD (hyperlipidemia) Status: Chronic (5) Chronic back pain Status: Acute Problem Text: Acute on chronic will resume home dose pain meds, titrate morphine plans for c5-6 repair in [place] Plan/VTE VTE Prophylaxis Ordered?: Yes Plan Diet: Continue Current Activity: Continue Current Therapy: PT Medications: Decrease pain Meds Anticipated Discharge: Home VS, I&O, 24H, Fishbone Vital Signs/I&O Vital Signs Date Time Temp Pulse Resp B/P (MAP) Pulse Ox O2 Delivery O2 Flow Rate FiO2 02/23/17 07:10 18 02/23/17 06:28 95 Room Air 02/23/17 04:00 98.4 74 133/76 (95) I&O- Last 24 Hours up to 6 AM 02/23/17 06:00 Intake Total 1080 ml Output Total 1050 ml Balance 30 ml Laboratory Data 24H LABS Laboratory Tests 2 02/23/17 06:47: White Blood Count 6.8, Red Blood Count 4.12L, Hemoglobin 12.3L, Hematocrit 36.4L , Mean Corpuscular Volume 88.3, Mean Corpuscular Hemoglobin 29.9, Mean Corpuscular Hemoglobin Concent 33.9, Red Cell Distribution Width 12.6, Platelet Count 280, Neutrophils (%) (Auto) 45.2, Lymphocytes (%) (Auto) 39.3, Monocytes ( %) (Auto) 5.9H, Eosinophils (%) (Auto) 7.0H, Basophils (%) (Auto) 0.8, Neutrophils # (Auto) 3.1, Lymphocytes # (Auto) 2.8, Monocytes # (Auto) 0.4, Eosinophils # (Auto) 0.5, Basophils # (Auto) 0.0, Large Unclassified Cells % 1.9 , Large Unclassified Cells # 0.1, Anion Gap 6L, Glomerular Filtration Rate > 60.0, Blood Urea Nitrogen 15, Creatinine 1.46H, Sodium Level 140, Potassium Level 3.9, Chloride Level 104, Carbon Dioxide Level 30, Calcium Level 8.4L, Aspartate Amino Transf (AST/SGOT) 13L, Alanine Aminotransferase (ALT/SGPT) 25, Alkaline Phosphatase 73, Total Bilirubin 0.3, Total Protein 7.6, Albumin 3.5, Magnesium Level 2.2, Albumin/Globulin Ratio 0.85L CBC/BMP Laboratory Tests 02/23/17 06:47 Red Blood Count 4.12 L, Mean Corpuscular Volume 88.3, Mean Corpuscular Hemoglobin 29.9, Mean Corpuscular Hemoglobin Concent 33.9, Red Cell Distribution Width 12.6, Neutrophils (%) (Auto) 45.2, Lymphocytes (%) (Auto) 39.3, Monocytes (%) (Auto) 5.9 H, Eosinophils (%) (Auto) 7.0 H, Basophils (%) ( Auto) 0.8, Neutrophils # (Auto) 3.1, Lymphocytes # (Auto) 2.8, Monocytes # (Auto ) 0.4, Eosinophils # (Auto) 0.5, Basophils # (Auto) 0.0, Calcium Level 8.4 L, Aspartate Amino Transf (AST/SGOT) 13 L, Alanine Aminotransferase (ALT/SGPT) 25, Alkaline Phosphatase 73, Total Bilirubin 0.3, Total Protein 7.6, Albumin 3.5 ETHEL ERIC MD February 23, 2017 08:02
[2017-02-23] MEDS: SERTRALINE HCL 50 MG TAB PO SCH (08:23)
[2017-02-23] MEDS: GABAPENTIN 300 MG CAP PO SCH ×3 (08:23→20:15)
[2017-02-23] MEDS: SIMVASTATIN 40 MG TAB PO SCH (08:23)
[2017-02-23] MEDS: buPROPion **XL** TABLET 150MG (WELLBUTRIN XL) PO SCH (08:23)
[2017-02-23] MEDS: diltiaZEM **CD** 180 MG CAP PO SCH (08:24)
[2017-02-23] MEDS: LISINOPRIL 40 MG TAB PO SCH (08:24)
--- NOTE | 2017-02-23 09:40 | EEG ---
DATE OF PROCEDURE: 02/22/2017 REFERRING PHYSICIAN: Dr. John Saenz DIAGNOSIS: Seizure versus syncope. EEG NUMBER: [id number]. HISTORY: Patient is a 56-year-old man who was admitted at [facility] due to a passing out spell. This EEG was done to rule out epileptic potential. He is currently taking Wellbutrin, diltiazem, gabapentin, lisinopril, lithium, Zoloft, simvastatin, oxycodone, etc. TECHNICAL DESCRIPTION: This digital EEG was recorded by 21 scalp, ear and two EKG electrodes and was reviewed in bipolar and referential montages following reformatting in 10-20 international electrode placement system. INTERPRETATION: Patient was noted to be in awake and drowsy states during this EEG. Resting awake background rhythm consisted of well-formed posterior dominant rhythm with anterior/posterior gradient comprising of 10 Hz alpha activity measuring 15-40 microvolts in amplitude, which was symmetric and reactive to eye opening. Attenuation of posterior dominant rhythm was seen during transition into drowsiness. Anteriorly low voltage mixed frequency activity was noted. Stage I and II sleep were reviewed and were symmetric bilaterally. Hyperventilation and photic stimulation remained unremarkable. EKG revealed normal sinus rhythm. No focal, lateralizing or epileptiform abnormalities were seen. No clinical or electrographic seizures were recorded. EKG artifact was noted in left temporal head region. CONCLUSION: This EEG in awake, drowsy states, stage I and II sleep is within normal limits.
[2017-02-23 12:00] VITALS: BP 130/75
[2017-02-23 16:00] VITALS: BP 143/76
[2017-02-23] MEDS ORDERED: MORPHINE 4 MG/ML 1ML SYRINGE IV PRN (18:30)
[2017-02-23 20:00] VITALS: BP 152/82
[2017-02-23] MEDS: LITHIUM CARBONATE 300 MG CAP PO SCH (20:14)
[2017-02-23 23:59] VITALS: BP 134/76
[2017-02-24] VITALS (7 sets, daily range): BP systolic 111–166; BP diastolic 66–95
[2017-02-24] MEDS: oxyCODONE 5MG TAB PO PRN ×6 (01:49→23:06)
[2017-02-24 05:28] LABS: BASO % 0.4 % (0.0-1.0); EOS # 0.6 K/mm3 (0.0-0.50); EOS % 7.3 % (0.0-3.0); LARGE UNSTAINED CELL # 0.1 K/mm3 (0.0-0.4); LARGE UNSTAINED CELL % 1.2 % (0.0-4.0); LYMPH # 3.2 K/mm3 (1.5-4.5); LYMPH % 41.6 % (24.0-44.0); MEAN CORPUSCULAR HEMOGLOBIN 30.4 pg (27.0-33.0); MEAN CORPUSCULAR HGB CONC 33.9 g/dl (32.0-36.5); MEAN CORPUSCULAR VOLUME 89.8 fl (80.0-96.0); MONO # 0.5 K/mm3 (0.0-0.8); MONO % 6.2 % (0.0-5.0); NEUTROPHILS # 3.3 K/mm3 (1.8-7.7); NEUTROPHILS % 43.2 % (36.0-66.0); PLATELET COUNT, AUTOMATED 313 k/mm3 (150-450); RED CELL DISTRIBUTION WIDTH 12.3 % (11.5-14.5); WHITE BLOOD COUNT 7.6 K/mm3 (4.0-10.0)
[2017-02-24 05:40] LABS: ALBUMIN 3.5 GM/DL (3.2-5.2); ALBUMIN/GLOBULIN RATIO 0.83 (1.00-1.93); ALKALINE PHOSPHATASE 68 U/L (45-117); ALT/SGPT 26 U/L (12-78); ANION GAP 4 MEQ/L (8-16); AST/SGOT 12 U/L (15-37); BILIRUBIN,TOTAL 0.3 MG/DL (0.2-1.0); BLOOD UREA NITROGEN 14 MG/DL (7-18); CALCIUM LEVEL 8.9 MG/DL (8.5-10.1); CARBON DIOXIDE LEVEL 31 MEQ/L (21-32); CHLORIDE LEVEL 105 MEQ/L (98-107); CREATININE FOR GFR 1.23 MG/DL (0.70-1.30); GLOMERULAR FILTRATION RATE > 60.0 (>56); GLUCOSE, FASTING 120 MG/DL (70-105); MAGNESIUM LEVEL 2.2 MG/DL (1.8-2.4); SODIUM LEVEL 140 MEQ/L (136-145); TOTAL PROTEIN 7.7 GM/DL (6.4-8.2)
[2017-02-24] MEDS: SLF 3 ML SYR IV SCH ×3 (06:31→23:06)
[2017-02-24] MEDS: HEPARIN SOD (PORCINE) 5000 UNITS/ML VIAL SC SCH ×3 (06:31→23:05)
--- NOTE | 2017-02-24 08:40 | IPNPDOC ---
Subjective Date Seen The patient was seen on 02/24/17. Subjective Chief Complaint/HPI The patient is a 56-year-old male admitted with a reason for visit of Syncope And Collapse. General: Denies: ROS Unobtainable, Chills, Night Sweats, Fatigue, Malaise, Normal Appetite, Other Symptoms Constitutional: Denies: Chills, Fever, Malaise, Night Sweats, Weakness, Fatigue , Weight Loss, Lethargy, Other Eyes: Denies: Pain, Vision change, Conjunctivae inflammation, Eyelid inflammation, Redness, Other ENT: Denies: Head Aches, Ear Pain, Dysphagia, Sinus Congestion, Post Nasal Drip , Sore Throat, Epistaxis, Other Symptoms Skin: Denies: Rash, Lesions, Jaundice, Bruising, Itching, Dry, Breakdown, Nail Changes, Other Pulmonary: Denies: Dyspnea, Cough, Pleuritic Chest Pain, Other Symptoms Cardiovascular: Denies: Chest Pain, Palpitations, Orthopnea, Paroxysmal Noc. Dyspnea, Edema, Lt Headedness, Other Symptoms Gastrointestinal: Denies: Nausea, Vomiting, Abdominal Pain, Diarrhea, Constipation, Melena, Hematochezia, Other Symptoms Musculoskeletal: Reports: Back Pain Objective Physical Examination General Exam: Positive: Alert, Cooperative, No Acute Distress Eye Exam: Positive: PERRLA, Conjunctiva & lids normal, EOMI, Negative: Sclera icteric ENT Exam: Positive: Atraumatic, Mucous membr. moist/pink Neck Exam: Positive: Supple Chest Exam: Positive: Clear to auscultation, Diminished, Negative: Rales, Rhonchi, Wheezing Heart Exam: Positive: Rate Normal, Regular Rhythm Telemetry: Positive: No significant arrhythmia Abdomen Exam: Positive: Normal bowel sounds, Soft, Negative: Tenderness Extremity Exam: Negative: Edema Psych Exam: Positive: Oriented x 3 Assessment /Plan Problems (1) Syncope and collapse Status: Acute Discussed With: Patient Problem Specific Plan: Monitor Clinically Problem Text: Unclear etiology- elements of neuro and cardiogenic continue telemetry- bradycardia while asleep and this morning EEG pending MRI/MRA brain-WNL 2D Echo- normal EF Carotid- WNL cardizem dose lowered dizziness improved PT eval/treat (2) Depression Status: Chronic Discussed With: Patient Problem Specific Plan: Monitor Clinically Problem Text: recent [facility] admission (3) HTN (hypertension) Status: Chronic Discussed With: Patient Problem Specific Plan: Monitor Clinically (4) HLD (hyperlipidemia) Status: Chronic (5) Chronic back pain Status: Acute Problem Text: Acute on chronic will resume home dose pain meds plans for c5-6 repair in [facility] iv morphine Plan/VTE VTE Prophylaxis Ordered?: Yes Plan Diet: Continue Current Activity: Continue Current Therapy: PT Medications: Decrease pain Meds Anticipated Discharge: Home VS, I&O, 24H, Fishbone Vital Signs/I&O Vital Signs Date Time Temp Pulse Resp B/P (MAP) Pulse Ox O2 Delivery O2 Flow Rate FiO2 02/24/17 07:56 97.3 62 18 162/95 (117) 99 Room Air I&O- Last 24 Hours up to 6 AM 02/24/17 06:00 Intake Total 2220 ml Output Total 2050 ml Balance 170 ml Laboratory Data 24H LABS Laboratory Tests 2 02/24/17 05:08: White Blood Count 7.6, Red Blood Count 4.26L, Hemoglobin 12.9L, Hematocrit 38.2L , Mean Corpuscular Volume 89.8, Mean Corpuscular Hemoglobin 30.4, Mean Corpuscular Hemoglobin Concent 33.9, Red Cell Distribution Width 12.3, Platelet Count 313, Neutrophils (%) (Auto) 43.2, Lymphocytes (%) (Auto) 41.6, Monocytes ( %) (Auto) 6.2H, Eosinophils (%) (Auto) 7.3H, Basophils (%) (Auto) 0.4, Neutrophils # (Auto) 3.3, Lymphocytes # (Auto) 3.2, Monocytes # (Auto) 0.5, Eosinophils # (Auto) 0.6H, Basophils # (Auto) 0.0, Large Unclassified Cells % 1.2, Large Unclassified Cells # 0.1, Anion Gap 4L, Glomerular Filtration Rate > 60.0, Blood Urea Nitrogen 14, Creatinine 1.23, Sodium Level 140, Potassium Level 4.0, Chloride Level 105, Carbon Dioxide Level 31, Calcium Level 8.9, Aspartate Amino Transf (AST/SGOT) 12L, Alanine Aminotransferase (ALT/SGPT) 26, Alkaline Phosphatase 68, Total Bilirubin 0.3, Total Protein 7.7, Albumin 3.5, Magnesium Level 2.2, Albumin/Globulin Ratio 0.83L CBC/BMP Laboratory Tests 02/24/17 05:08 Red Blood Count 4.26 L, Mean Corpuscular Volume 89.8, Mean Corpuscular Hemoglobin 30.4, Mean Corpuscular Hemoglobin Concent 33.9, Red Cell Distribution Width 12.3, Neutrophils (%) (Auto) 43.2, Lymphocytes (%) (Auto) 41.6, Monocytes (%) (Auto) 6.2 H, Eosinophils (%) (Auto) 7.3 H, Basophils (%) ( Auto) 0.4, Neutrophils # (Auto) 3.3, Lymphocytes # (Auto) 3.2, Monocytes # (Auto ) 0.5, Eosinophils # (Auto) 0.6 H, Basophils # (Auto) 0.0, Calcium Level 8.9, Aspartate Amino Transf (AST/SGOT) 12 L, Alanine Aminotransferase (ALT/SGPT) 26, Alkaline Phosphatase 68, Total Bilirubin 0.3, Total Protein 7.7, Albumin 3.5 ETHEL ERIC MD February 24, 2017 08:40
[2017-02-24] MEDS: LISINOPRIL 40 MG TAB PO SCH (09:37)
[2017-02-24] MEDS: buPROPion **XL** TABLET 150MG (WELLBUTRIN XL) PO SCH (09:37)
[2017-02-24] MEDS: SERTRALINE HCL 50 MG TAB PO SCH (09:37)
[2017-02-24] MEDS: SIMVASTATIN 40 MG TAB PO SCH (09:37)
[2017-02-24] MEDS: GABAPENTIN 300 MG CAP PO SCH ×3 (09:38→20:26)
[2017-02-24] MEDS: diltiaZEM **CD** 180 MG CAP PO SCH (09:38)
[2017-02-24] MEDS: LITHIUM CARBONATE 300 MG CAP PO SCH (20:26)
[2017-02-25 04:45] VITALS: BP 138/88
[2017-02-25] MEDS: oxyCODONE 5MG TAB PO PRN ×5 (04:50→21:34)
[2017-02-25 05:33] LABS: BASO % 0.7 % (0.0-1.0); EOS # 0.5 K/mm3 (0.0-0.50); EOS % 7.1 % (0.0-3.0); LARGE UNSTAINED CELL # 0.1 K/mm3 (0.0-0.4); LARGE UNSTAINED CELL % 1.9 % (0.0-4.0); LYMPH # 2.9 K/mm3 (1.5-4.5); LYMPH % 38.1 % (24.0-44.0); MEAN CORPUSCULAR HEMOGLOBIN 29.8 pg (27.0-33.0); MEAN CORPUSCULAR HGB CONC 33.9 g/dl (32.0-36.5); MONO # 0.5 K/mm3 (0.0-0.8); MONO % 6.6 % (0.0-5.0); NEUTROPHILS # 3.4 K/mm3 (1.8-7.7); NEUTROPHILS % 45.6 % (36.0-66.0); PLATELET COUNT, AUTOMATED 278 k/mm3 (150-450); RED CELL DISTRIBUTION WIDTH 12.5 % (11.5-14.5); WHITE BLOOD COUNT 7.4 K/mm3 (4.0-10.0)
[2017-02-25 05:50] LABS: ALBUMIN 3.5 GM/DL (3.2-5.2); ALBUMIN/GLOBULIN RATIO 0.83 (1.00-1.93); ALKALINE PHOSPHATASE 69 U/L (45-117); ALT/SGPT 26 U/L (12-78); ANION GAP 5 MEQ/L (8-16); AST/SGOT 16 U/L (15-37); BILIRUBIN,TOTAL 0.3 MG/DL (0.2-1.0); BLOOD UREA NITROGEN 13 MG/DL (7-18); CALCIUM LEVEL 9.1 MG/DL (8.5-10.1); CARBON DIOXIDE LEVEL 32 MEQ/L (21-32); CHLORIDE LEVEL 104 MEQ/L (98-107); CREATININE FOR GFR 1.27 MG/DL (0.70-1.30); GLOMERULAR FILTRATION RATE > 60.0 (>56); GLUCOSE, FASTING 116 MG/DL (70-105); POTASSIUM SERUM 3.9 MEQ/L (3.5-5.1); SODIUM LEVEL 141 MEQ/L (136-145); TOTAL PROTEIN 7.7 GM/DL (6.4-8.2)
[2017-02-25] MEDS: SLF 3 ML SYR IV SCH ×3 (06:34→21:34)
[2017-02-25] MEDS: HEPARIN SOD (PORCINE) 5000 UNITS/ML VIAL SC SCH ×3 (06:34→21:37)
[2017-02-25 07:50] VITALS: BP 156/86
[2017-02-25] MEDS: diltiaZEM **CD** 180 MG CAP PO SCH (09:13)
[2017-02-25] MEDS: GABAPENTIN 300 MG CAP PO SCH ×3 (09:13→21:35)
[2017-02-25] MEDS: LISINOPRIL 40 MG TAB PO SCH (09:13)
[2017-02-25] MEDS: SERTRALINE HCL 50 MG TAB PO SCH (09:13)
[2017-02-25] MEDS: SIMVASTATIN 40 MG TAB PO SCH (09:14)
[2017-02-25] MEDS: buPROPion **XL** TABLET 150MG (WELLBUTRIN XL) PO SCH (09:14)
[2017-02-25 11:38] VITALS: BP_SYST 146; BP_SYST 163; BP_SYST 170; BP_DIAS 76; BP_DIAS 79; BP_DIAS 85
--- NOTE | 2017-02-25 13:39 | IPNPDOC ---
Subjective Date Seen The patient was seen on 02/25/17. Subjective Chief Complaint/HPI The patient is a 56-year-old male admitted with a reason for visit of Syncope And Collapse. General: Denies: ROS Unobtainable, Chills, Night Sweats, Fatigue, Malaise, Normal Appetite, Other Symptoms Constitutional: Denies: Chills, Fever, Malaise, Night Sweats, Weakness, Fatigue , Weight Loss, Lethargy, Other Eyes: Denies: Pain, Vision change, Conjunctivae inflammation, Eyelid inflammation, Redness, Other ENT: Denies: Head Aches, Ear Pain, Dysphagia, Sinus Congestion, Post Nasal Drip , Sore Throat, Epistaxis, Other Symptoms Skin: Denies: Rash, Lesions, Jaundice, Bruising, Itching, Dry, Breakdown, Nail Changes, Other Pulmonary: Denies: Dyspnea, Cough, Pleuritic Chest Pain, Other Symptoms Cardiovascular: Denies: Chest Pain, Palpitations, Orthopnea, Paroxysmal Noc. Dyspnea, Edema, Lt Headedness, Other Symptoms Gastrointestinal: Denies: Nausea, Vomiting, Abdominal Pain, Diarrhea, Constipation, Melena, Hematochezia, Other Symptoms Genitourinary: Denies: Dysuria, Frequency, Incontinence, Hematuria, Retention, Other Symptoms Hematologic: Denies: Bruising, Bleeding Excessively, Petecchia, Purpura, Enlarged Lymph Nodes, Other Hematologic Endocrine: Denies: Polydipsia, Polyphagia, Polyuria, Heat Intolerance, Cold Intolerance, Other Endocrine Sx Musculoskeletal: Reports: Back Pain Neurological: Reports: Weakness Objective Physical Examination General Exam: Positive: Alert, Cooperative, No Acute Distress Eye Exam: Positive: PERRLA, Conjunctiva & lids normal, EOMI, Negative: Sclera icteric ENT Exam: Positive: Atraumatic, Mucous membr. moist/pink Neck Exam: Positive: Supple Chest Exam: Positive: Clear to auscultation, Diminished, Negative: Rales, Rhonchi, Wheezing Heart Exam: Positive: Rate Normal, Regular Rhythm Telemetry: Positive: No significant arrhythmia Abdomen Exam: Positive: Normal bowel sounds, Soft, Negative: Tenderness Extremity Exam: Negative: Edema Psych Exam: Positive: Oriented x 3 Assessment /Plan Problems (1) Syncope and collapse Status: Acute Discussed With: Patient Problem Specific Plan: Monitor Clinically Problem Text: Some episodes of bradycardia, however does not correlate with his episodes of dizziness/weakness. Mostly episodic brooke during hours of sleep EEG unremarkable MRI/MRA brain-WNL 2D Echo- no cardiac etiology for syncop Carotid- WNL cardizem dose lowered dizziness improved PT eval/treat safe for d/c home (2) Depression Status: Chronic Discussed With: Patient Problem Specific Plan: Monitor Clinically Problem Text: [facility] (3) HTN (hypertension) Status: Chronic Discussed With: Patient Problem Specific Plan: Monitor Clinically Problem Text: slightly elevated , cardizem was lowered secondary to bradycardia will likely follow up in outpatient setting (4) HLD (hyperlipidemia) Status: Chronic (5) Chronic back pain Status: Acute Problem Text: Acute on chronic resumed home dose pain meds plans for c5-6 repair in [place] Plan/VTE VTE Prophylaxis Ordered?: Yes Plan Diet: Continue Current Activity: Continue Current Therapy: PT Medications: Decrease pain Meds Anticipated Discharge: Home VS, [facility] Vital Signs/I&O Vital Signs Date Time Temp Pulse Resp B/P (MAP) Pulse Ox O2 Delivery O2 Flow Rate FiO2 02/25/17 13:10 15 02/25/17 11:38 75 163/79 (107) 70 170/85 (113) 75 146/76 (99) 02/25/17 11:38 97.7 98 Room Air I&O- Last 24 Hours up to 6 AM 02/25/17 05:59 Intake Total 1500 ml Output Total 2200 ml Balance -700 ml Laboratory Data 24H LABS Laboratory Tests 2 02/25/17 04:53: White Blood Count 7.4, Red Blood Count 4.31, Hemoglobin 12.8L, Hematocrit 37.9L , Mean Corpuscular Volume 88.0, Mean Corpuscular Hemoglobin 29.8, Mean Corpuscular Hemoglobin Concent 33.9, Red Cell Distribution Width 12.5, Platelet Count 278, Neutrophils (%) (Auto) 45.6, Lymphocytes (%) (Auto) 38.1, Monocytes ( %) (Auto) 6.6H, Eosinophils (%) (Auto) 7.1H, Basophils (%) (Auto) 0.7, Neutrophils # (Auto) 3.4, Lymphocytes # (Auto) 2.9, Monocytes # (Auto) 0.5, Eosinophils # (Auto) 0.5, Basophils # (Auto) 0.0, Large Unclassified Cells % 1.9 , Large Unclassified Cells # 0.1, Anion Gap 5L, Glomerular Filtration Rate > 60.0, Blood Urea Nitrogen 13, Creatinine 1.27, Sodium Level 141, Potassium Level 3.9, Chloride Level 104, Carbon Dioxide Level 32, Calcium Level 9.1, Aspartate Amino Transf (AST/SGOT) 16, Alanine Aminotransferase (ALT/SGPT) 26, Total Creatine Kinase 148, Alkaline Phosphatase 69, Total Bilirubin 0.3, Total Protein 7.7, Albumin 3.5, Magnesium Level 2.0, Albumin/Globulin Ratio 0.83L CBC/BMP Laboratory Tests 02/25/17 04:53 Red Blood Count 4.31, Mean Corpuscular Volume 88.0, Mean Corpuscular Hemoglobin 29.8, Mean Corpuscular Hemoglobin Concent 33.9, Red Cell Distribution Width 12.5 , Neutrophils (%) (Auto) 45.6, Lymphocytes (%) (Auto) 38.1, Monocytes (%) (Auto ) 6.6 H, Eosinophils (%) (Auto) 7.1 H, Basophils (%) (Auto) 0.7, Neutrophils # ( Auto) 3.4, Lymphocytes # (Auto) 2.9, Monocytes # (Auto) 0.5, Eosinophils # (Auto ) 0.5, Basophils # (Auto) 0.0, Calcium Level 9.1, Aspartate Amino Transf (AST/ SGOT) 16, Alanine Aminotransferase (ALT/SGPT) 26, Total Creatine Kinase 148, Alkaline Phosphatase 69, Total Bilirubin 0.3, Total Protein 7.7, Albumin 3.5 ETHEL ERIC MD February 25, 2017 13:39
[2017-02-25 15:40] VITALS: BP 140/80
[2017-02-25 20:00] VITALS: BP 142/90
[2017-02-25] MEDS: LITHIUM CARBONATE 300 MG CAP PO SCH (21:35)
[2017-02-25 23:59] VITALS: BP 139/80
[2017-02-26] MEDS: oxyCODONE 5MG TAB PO PRN ×6 (01:30→23:55)
[2017-02-26 04:45] VITALS: BP 142/62
[2017-02-26 05:19] LABS: BASO # 0.1 K/mm3 (0.0-0.2); BASO % 0.7 % (0.0-1.0); EOS # 0.5 K/mm3 (0.0-0.50); EOS % 6.7 % (0.0-3.0); LARGE UNSTAINED CELL # 0.1 K/mm3 (0.0-0.4); LARGE UNSTAINED CELL % 1.6 % (0.0-4.0); LYMPH # 3.1 K/mm3 (1.5-4.5); LYMPH % 39.4 % (24.0-44.0); MEAN CORPUSCULAR HEMOGLOBIN 30.3 pg (27.0-33.0); MEAN CORPUSCULAR HGB CONC 33.6 g/dl (32.0-36.5); MEAN CORPUSCULAR VOLUME 90.1 fl (80.0-96.0); MONO # 0.5 K/mm3 (0.0-0.8); MONO % 6.5 % (0.0-5.0); NEUTROPHILS # 3.6 K/mm3 (1.8-7.7); NEUTROPHILS % 45.1 % (36.0-66.0); PLATELET COUNT, AUTOMATED 307 k/mm3 (150-450); RED CELL DISTRIBUTION WIDTH 12.4 % (11.5-14.5); WHITE BLOOD COUNT 7.9 K/mm3 (4.0-10.0)
[2017-02-26 05:48] LABS: ALBUMIN 3.5 GM/DL (3.2-5.2); ALBUMIN/GLOBULIN RATIO 0.83 (1.00-1.93); ALKALINE PHOSPHATASE 75 U/L (45-117); ALT/SGPT 24 U/L (12-78); ANION GAP 7 MEQ/L (8-16); AST/SGOT 12 U/L (15-37); BILIRUBIN,TOTAL 0.3 MG/DL (0.2-1.0); BLOOD UREA NITROGEN 15 MG/DL (7-18); CARBON DIOXIDE LEVEL 28 MEQ/L (21-32); CHLORIDE LEVEL 103 MEQ/L (98-107); CREATININE FOR GFR 1.25 MG/DL (0.70-1.30); GLOMERULAR FILTRATION RATE > 60.0 (>56); GLUCOSE, FASTING 111 MG/DL (70-105); POTASSIUM SERUM 3.9 MEQ/L (3.5-5.1); SODIUM LEVEL 138 MEQ/L (136-145); TOTAL PROTEIN 7.7 GM/DL (6.4-8.2)
[2017-02-26] MEDS: HEPARIN SOD (PORCINE) 5000 UNITS/ML VIAL SC SCH ×3 (06:00→20:51)
[2017-02-26] MEDS: SLF 3 ML SYR IV SCH ×3 (06:01→20:53)
--- NOTE | 2017-02-26 07:53 | IPNPDOC ---
Subjective Date Seen The patient was seen on 02/26/17. Subjective Chief Complaint/HPI The patient is a 56-year-old male admitted with a reason for visit of Syncope And Collapse. General: Reports: Other Symptoms (still complains of episodes of dizziness, no clear instigating factors), Denies: ROS Unobtainable, Chills, Night Sweats, Fatigue, Malaise, Normal Appetite Constitutional: Denies: Chills, Fever, Malaise, Night Sweats, Weakness, Fatigue , Weight Loss, Lethargy, Other Eyes: Denies: Pain, Vision change, Conjunctivae inflammation, Eyelid inflammation, Redness, Other ENT: Denies: Head Aches, Ear Pain, Dysphagia, Sinus Congestion, Post Nasal Drip , Sore Throat, Epistaxis, Other Symptoms Skin: Denies: Rash, Lesions, Jaundice, Bruising, Itching, Dry, Breakdown, Nail Changes, Other Pulmonary: Denies: Dyspnea, Cough, Pleuritic Chest Pain, Other Symptoms Cardiovascular: Denies: Chest Pain, Palpitations, Orthopnea, Paroxysmal Noc. Dyspnea, Edema, Lt Headedness, Other Symptoms Gastrointestinal: Denies: Nausea, Vomiting, Abdominal Pain, Diarrhea, Constipation, Melena, Hematochezia, Other Symptoms Musculoskeletal: Reports: Leg Pain (right thigh spasms) Objective Physical Examination General Exam: Positive: Alert, Cooperative, No Acute Distress Eye Exam: Positive: PERRLA, Conjunctiva & lids normal, EOMI, Negative: Sclera icteric ENT Exam: Positive: Atraumatic, Mucous membr. moist/pink Neck Exam: Positive: Supple Chest Exam: Positive: Clear to auscultation, Normal air movement Heart Exam: Positive: Rate Normal, Regular Rhythm Telemetry: Positive: No significant arrhythmia Abdomen Exam: Positive: Normal bowel sounds, Soft, Negative: Tenderness Extremity Exam: Negative: Edema Neuro Exam: Positive: Strength at 5/5 X4 ext, Sensation Intact Psych Exam: Positive: Oriented x 3 Assessment /Plan Problems (1) Syncope and collapse Status: Acute Response to Treatment: Progressing Discussed With: Patient Problem Specific Plan: Monitor Clinically Problem Text: EEG unremarkable MRI/MRA brain-WNL 2D Echo- no cardiac etiology for syncope Carotid- WNL orthostatic yesterday cardizem d/c - transition to norvas zoloft decreased to 75mg PT eval/treat safe for d/c home (2) Depression Status: Chronic Discussed With: Patient Problem Specific Plan: Monitor Clinically Problem Text: recent [facility] admission Has been on Zoloft for around 10 months, states dose was increased few months ago Also stated Wellbutrin started few months ago states dizziness started few months ago, patient states has been going for several months (3) HTN (hypertension) Status: Chronic Discussed With: Patient Problem Specific Plan: Monitor Clinically Problem Text: slightly elevated cardizem dc - start norvasc continue lisinopril (4) HLD (hyperlipidemia) Status: Chronic Problem Text: zocor (5) Chronic back pain Status: Chronic Problem Text: Acute on chronic resumed home dose pain meds oxir 10 q4hprn, gabapentin 300tid plans for c5-6 repair in [place] Plan/VTE VTE Prophylaxis Ordered?: Yes Plan Diet: Continue Current Activity: Continue Current Therapy: PT Medications: Decrease pain Meds Diagnostics: Ultrasound Anticipated Discharge: Home RLE dopplers pending eval dvt d/c cardizem, start norvasc - due to bradycardia, elevated bp, orthostasis decreased zoloft - possible cause of his orthostasis VS, I&O, 24H, [facility]bone Vital Signs/I&O Vital Signs Date Time Temp Pulse Resp B/P (MAP) Pulse Ox O2 Delivery O2 Flow Rate FiO2 02/26/17 06:31 16 02/26/17 04:45 98.4 66 142/62 (88) 98 Room Air I&O- Last 24 Hours up to 6 AM 02/26/17 06:00 Intake Total 960 ml Output Total 650 ml Balance 310 ml Laboratory Data 24H LABS Laboratory Tests 2 02/26/17 05:01: White Blood Count 7.9, Red Blood Count 4.30, Hemoglobin 13.0L, Hematocrit 38.8L , Mean Corpuscular Volume 90.1, Mean Corpuscular Hemoglobin 30.3, Mean Corpuscular Hemoglobin Concent 33.6, Red Cell Distribution Width 12.4, Platelet Count 307, Neutrophils (%) (Auto) 45.1, Lymphocytes (%) (Auto) 39.4, Monocytes ( %) (Auto) 6.5H, Eosinophils (%) (Auto) 6.7H, Basophils (%) (Auto) 0.7, Neutrophils # (Auto) 3.6, Lymphocytes # (Auto) 3.1, Monocytes # (Auto) 0.5, Eosinophils # (Auto) 0.5, Basophils # (Auto) 0.1, Large Unclassified Cells % 1.6 , Large Unclassified Cells # 0.1, Anion Gap 7L, Glomerular Filtration Rate > 60.0, Blood Urea Nitrogen 15, Creatinine 1.25, Sodium Level 138, Potassium Level 3.9, Chloride Level 103, Carbon Dioxide Level 28, Calcium Level 9.0, Aspartate Amino Transf (AST/SGOT) 12L, Alanine Aminotransferase (ALT/SGPT) 24, Alkaline Phosphatase 75, Total Bilirubin 0.3, Total Protein 7.7, Albumin 3.5, Magnesium Level 2.0, Albumin/Globulin Ratio 0.83L CBC/BMP Laboratory Tests 02/26/17 05:01 Red Blood Count 4.30, Mean Corpuscular Volume 90.1, Mean Corpuscular Hemoglobin 30.3, Mean Corpuscular Hemoglobin Concent 33.6, Red Cell Distribution Width 12.4 , Neutrophils (%) (Auto) 45.1, Lymphocytes (%) (Auto) 39.4, Monocytes (%) (Auto ) 6.5 H, Eosinophils (%) (Auto) 6.7 H, Basophils (%) (Auto) 0.7, Neutrophils # ( Auto) 3.6, Lymphocytes # (Auto) 3.1, Monocytes # (Auto) 0.5, Eosinophils # (Auto ) 0.5, Basophils # (Auto) 0.1, Calcium Level 9.0, Aspartate Amino Transf (AST/ SGOT) 12 L, Alanine Aminotransferase (ALT/SGPT) 24, Alkaline Phosphatase 75, Total Bilirubin 0.3, Total Protein 7.7, Albumin 3.5 ETHEL ERIC MD February 26, 2017 07:53
[2017-02-26 08:06] VITALS: BP 148/78
[2017-02-26] MEDS: buPROPion **XL** TABLET 150MG (WELLBUTRIN XL) PO SCH (08:58)
[2017-02-26] MEDS: SERTRALINE HCL 25 MG TABLET PO SCH (08:58)
[2017-02-26] MEDS: GABAPENTIN 300 MG CAP PO SCH ×3 (08:58→20:51)
[2017-02-26] MEDS: LISINOPRIL 40 MG TAB PO SCH (08:58)
[2017-02-26] MEDS: amLODIPine 5 MG TAB PO SCH (08:59)
[2017-02-26] MEDS: SIMVASTATIN 40 MG TAB PO SCH (08:59)
[2017-02-26 12:00] VITALS: BP 139/77
--- NOTE | 2017-02-26 15:12 | REP ---
Clinical: Right lower extremity pain and swelling . Technique: Crooks scale and color Doppler evaluation using linear high frequency transducer. Findings: Ultrasound examination of the right lower extremity deep venous structures from the common femoral vein to the popliteal vein demonstrates normal compressibility flow and wave patterns in response to respiration and augmentation. There is no evidence for deep venous thrombosis. Impression: No evidence for deep venous thrombosis. Signed by Isaac Grullon MD 02/26/2017 03:03 P
[2017-02-26 16:00] VITALS: BP 150/82
[2017-02-26 20:00] VITALS: BP 145/87
[2017-02-26] MEDS: LITHIUM CARBONATE 300 MG CAP PO SCH (20:51)
[2017-02-26 23:59] VITALS: BP_SYST 144; BP_SYST 152; BP_SYST 154; BP_DIAS 87; BP_DIAS 95
[2017-02-27 04:00] VITALS: BP 152/81
[2017-02-27] MEDS: oxyCODONE 5MG TAB PO PRN ×5 (04:26→21:33)
[2017-02-27 05:27] LABS: BASO % 0.6 % (0.0-1.0); EOS # 0.4 K/mm3 (0.0-0.50); EOS % 5.1 % (0.0-3.0); LARGE UNSTAINED CELL # 0.2 K/mm3 (0.0-0.4); LARGE UNSTAINED CELL % 1.9 % (0.0-4.0); LYMPH # 3.1 K/mm3 (1.5-4.5); LYMPH % 40.6 % (24.0-44.0); MEAN CORPUSCULAR HEMOGLOBIN 30.1 pg (27.0-33.0); MEAN CORPUSCULAR HGB CONC 33.4 g/dl (32.0-36.5); MEAN CORPUSCULAR VOLUME 90.3 fl (80.0-96.0); MONO # 0.6 K/mm3 (0.0-0.8); MONO % 7.4 % (0.0-5.0); NEUTROPHILS # 3.4 K/mm3 (1.8-7.7); NEUTROPHILS % 44.5 % (36.0-66.0); PLATELET COUNT, AUTOMATED 290 k/mm3 (150-450); RED CELL DISTRIBUTION WIDTH 12.3 % (11.5-14.5); WHITE BLOOD COUNT 7.7 K/mm3 (4.0-10.0)
[2017-02-27 05:40] LABS: ALBUMIN 3.5 GM/DL (3.2-5.2); ALBUMIN/GLOBULIN RATIO 0.81 (1.00-1.93); ALKALINE PHOSPHATASE 73 U/L (45-117); ALT/SGPT 25 U/L (12-78); ANION GAP 6 MEQ/L (8-16); AST/SGOT 13 U/L (15-37); BILIRUBIN,TOTAL 0.3 MG/DL (0.2-1.0); BLOOD UREA NITROGEN 15 MG/DL (7-18); CALCIUM LEVEL 8.8 MG/DL (8.5-10.1); CARBON DIOXIDE LEVEL 30 MEQ/L (21-32); CHLORIDE LEVEL 104 MEQ/L (98-107); CREATININE FOR GFR 1.14 MG/DL (0.70-1.30); GLOMERULAR FILTRATION RATE > 60.0 (>56); GLUCOSE, FASTING 107 MG/DL (70-105); MAGNESIUM LEVEL 2.1 MG/DL (1.8-2.4); POTASSIUM SERUM 3.9 MEQ/L (3.5-5.1); SODIUM LEVEL 140 MEQ/L (136-145); TOTAL PROTEIN 7.8 GM/DL (6.4-8.2)
[2017-02-27] MEDS: SLF 3 ML SYR IV SCH ×3 (06:30→21:33)
[2017-02-27] MEDS: HEPARIN SOD (PORCINE) 5000 UNITS/ML VIAL SC SCH ×3 (06:31→21:32)
[2017-02-27 08:00] VITALS: BP 141/98
[2017-02-27] MEDS: amLODIPine 5 MG TAB PO SCH (09:00)
[2017-02-27] MEDS: GABAPENTIN 300 MG CAP PO SCH ×3 (09:00→21:32)
[2017-02-27] MEDS: LISINOPRIL 40 MG TAB PO SCH (09:00)
[2017-02-27] MEDS: SIMVASTATIN 40 MG TAB PO SCH (09:00)
[2017-02-27] MEDS: buPROPion **XL** TABLET 150MG (WELLBUTRIN XL) PO SCH (09:01)
[2017-02-27] MEDS: SERTRALINE HCL 25 MG TABLET PO SCH (09:01)
--- NOTE | 2017-02-27 10:47 | IPNPDOC ---
Subjective Date Seen The patient was seen on 02/27/17. Subjective Chief Complaint/HPI The patient is a 56-year-old male admitted with a reason for visit of Syncope And Collapse. General: Reports: Other Symptoms (some episodes of dizziness but significantly improved), Denies: ROS Unobtainable, Chills, Night Sweats, Fatigue, Malaise, Normal Appetite Constitutional: Denies: Chills, Fever, Malaise, Night Sweats, Weakness, Fatigue , Weight Loss, Lethargy, Other Eyes: Denies: Pain, Vision change, Conjunctivae inflammation, Eyelid inflammation, Redness, Other ENT: Denies: Head Aches, Ear Pain, Dysphagia, Sinus Congestion, Post Nasal Drip , Sore Throat, Epistaxis, Other Symptoms Skin: Denies: Rash, Lesions, Jaundice, Bruising, Itching, Dry, Breakdown, Nail Changes, Other Pulmonary: Denies: Dyspnea, Cough, Pleuritic Chest Pain, Other Symptoms Cardiovascular: Denies: Chest Pain, Palpitations, Orthopnea, Paroxysmal Noc. Dyspnea, Edema, Lt Headedness, Other Symptoms Gastrointestinal: Denies: Nausea, Vomiting, Abdominal Pain, Diarrhea, Constipation, Melena, Hematochezia, Other Symptoms Genitourinary: Denies: Dysuria, Frequency, Incontinence, Hematuria, Retention, Other Symptoms Objective Physical Examination General Exam: Positive: Alert, Cooperative, No Acute Distress Eye Exam: Positive: PERRLA, Conjunctiva & lids normal, EOMI, Negative: Sclera icteric ENT Exam: Positive: Atraumatic, Mucous membr. moist/pink Neck Exam: Positive: Supple Chest Exam: Positive: Clear to auscultation, Normal air movement Heart Exam: Positive: Rate Normal, Regular Rhythm Telemetry: Positive: No significant arrhythmia Abdomen Exam: Positive: Normal bowel sounds, Soft, Negative: Tenderness Extremity Exam: Negative: Edema Neuro Exam: Positive: Strength at 5/5 X4 ext, Sensation Intact Psych Exam: Positive: Oriented x 3 Assessment /Plan Problems (1) Syncope and collapse Status: Resolved Response to Treatment: Stable, Improving Discussed With: Patient Problem Specific Plan: Monitor Clinically Problem Text: EEG unremarkable MRI/MRA brain-WNL 2D Echo- no cardiac etiology for syncope Carotid- WNL orthostatic yesterday cardizem d/c - transition to [facility] zoloft decreased to 75mg PT eval/treat safe for d/c home (2) Depression Status: Chronic Discussed With: Patient Problem Specific Plan: Monitor Clinically Problem Text: recent [facility] admission Has been on Zoloft for around 10 months, states dose was increased few months ago Also stated Wellbutrin started few months ago states dizziness started few months ago, patient states has been going for several months (3) HTN (hypertension) Status: Chronic Discussed With: Patient Problem Specific Plan: Monitor Clinically Problem Text: slightly elevated cardizem dc - start norvasc continue lisinopril (4) HLD (hyperlipidemia) Status: Chronic Problem Text: zocor (5) Chronic back pain Status: Chronic Problem Text: Acute on chronic resumed home dose pain meds oxir 10 q4hprn, gabapentin 300tid plans for c5-6 repair in [place] Plan/VTE VTE Prophylaxis Ordered?: Yes Plan Diet: Continue Current Activity: Continue Current Anticipated Discharge: Home Symptoms much improved. States is difficult to have prompt follow up as outpatient. Will monitor for 24 hours with current regimen and anticipating discharge tomorrow. VS, I&O, 24H, [facility] Vital Signs/I&O Vital Signs Date Time Temp Pulse Resp B/P (MAP) Pulse Ox O2 Delivery O2 Flow Rate FiO2 02/27/17 09:02 20 Room Air 02/27/17 08:00 98.4 67 141/98 (112) 98 I&O- Last 24 Hours up to 6 AM 02/27/17 06:00 Intake Total 900 ml Output Total 1200 ml Balance -300 ml Laboratory Data 24H LABS Laboratory Tests 2 02/27/17 04:31: White Blood Count 7.7, Red Blood Count 4.42, Hemoglobin 13.3L, Hematocrit 39.9L , Mean Corpuscular Volume 90.3, Mean Corpuscular Hemoglobin 30.1, Mean Corpuscular Hemoglobin Concent 33.4, Red Cell Distribution Width 12.3, Platelet Count 290, Neutrophils (%) (Auto) 44.5, Lymphocytes (%) (Auto) 40.6, Monocytes ( %) (Auto) 7.4H, Eosinophils (%) (Auto) 5.1H, Basophils (%) (Auto) 0.6, Neutrophils # (Auto) 3.4, Lymphocytes # (Auto) 3.1, Monocytes # (Auto) 0.6, Eosinophils # (Auto) 0.4, Basophils # (Auto) 0.0, Large Unclassified Cells % 1.9 , Large Unclassified Cells # 0.2, Anion Gap 6L, Glomerular Filtration Rate > 60.0, Blood Urea Nitrogen 15, Creatinine 1.14, Sodium Level 140, Potassium Level 3.9, Chloride Level 104, Carbon Dioxide Level 30, Calcium Level 8.8, Aspartate Amino Transf (AST/SGOT) 13L, Alanine Aminotransferase (ALT/SGPT) 25, Alkaline Phosphatase 73, Total Bilirubin 0.3, Total Protein 7.8, Albumin 3.5, Magnesium Level 2.1, Albumin/Globulin Ratio 0.81L CBC/BMP Laboratory Tests 02/27/17 04:31 Red Blood Count 4.42, Mean Corpuscular Volume 90.3, Mean Corpuscular Hemoglobin 30.1, Mean Corpuscular Hemoglobin Concent 33.4, Red Cell Distribution Width 12.3 , Neutrophils (%) (Auto) 44.5, Lymphocytes (%) (Auto) 40.6, Monocytes (%) (Auto ) 7.4 H, Eosinophils (%) (Auto) 5.1 H, Basophils (%) (Auto) 0.6, Neutrophils # ( Auto) 3.4, Lymphocytes # (Auto) 3.1, Monocytes # (Auto) 0.6, Eosinophils # (Auto ) 0.4, Basophils # (Auto) 0.0, Calcium Level 8.8, Aspartate Amino Transf (AST/ SGOT) 13 L, Alanine Aminotransferase (ALT/SGPT) 25, Alkaline Phosphatase 73, Total Bilirubin 0.3, Total Protein 7.8, Albumin 3.5 ETHEL ERIC MD February 27, 2017 10:47
[2017-02-27 12:00] VITALS: BP 150/80
--- NOTE | 2017-02-27 12:53 | REP ---
Clinical: Renal cyst. Technique: Real time pérez scale ultrasound examination using curved array transducer. Findings: The bilateral kidneys are normal in contour, size, echogenicity, and reniform shape without hydronephrosis, nephrolithiasis, perinephric fluid or mass lesion. Right kidney measures 10.0 x 5.1 x 6.3 cm with 2.6 cm lower pole exophytic cyst having layering debris. Left kidney measures 11.2 x 6.1 x 6.2 cm without cyst abnormality. The bladder is unremarkable, under distended and currently measures 4.4 x 3.9 x 2.6 cm. Impression: 2.6 cm complex cyst with layering debris lower pole right kidney. Signed by Isaac Grullon MD 02/27/2017 12:45 P
[2017-02-27 16:00] VITALS: BP 146/77
[2017-02-27 20:00] VITALS: BP 112/66
[2017-02-27] MEDS: LITHIUM CARBONATE 300 MG CAP PO SCH (21:33)
[2017-02-27 23:59] VITALS: BP 117/62
[2017-02-28] MEDS: oxyCODONE 5MG TAB PO PRN ×6 (01:37→23:17)
[2017-02-28 04:00] VITALS: BP_SYST 133; BP_SYST 141; BP_SYST 145; BP_DIAS 61; BP_DIAS 66; BP_DIAS 67
[2017-02-28] MEDS: HEPARIN SOD (PORCINE) 5000 UNITS/ML VIAL SC SCH ×3 (05:33→20:48)
[2017-02-28] MEDS: SLF 3 ML SYR IV SCH ×3 (05:34→20:49)
[2017-02-28] MEDS ORDERED: SERT25TA PO (07:55)
[2017-02-28] MEDS ORDERED: AMLO5TAB2 PO (07:55)
[2017-02-28 08:00] VITALS: BP 136/65
[2017-02-28] MEDS: LISINOPRIL 40 MG TAB PO SCH (08:14)
[2017-02-28] MEDS: buPROPion **XL** TABLET 150MG (WELLBUTRIN XL) PO SCH (08:16)
[2017-02-28] MEDS: SIMVASTATIN 40 MG TAB PO SCH (08:16)
[2017-02-28] MEDS: SERTRALINE HCL 25 MG TABLET PO SCH (08:16)
[2017-02-28] MEDS: GABAPENTIN 300 MG CAP PO SCH ×3 (08:16→20:49)
[2017-02-28] MEDS: amLODIPine 5 MG TAB PO SCH (08:16)
--- NOTE | 2017-02-28 10:21 | DS.PDOC ---
Discharge Summary General Date of Admission February 21, 2017 at 03:28 Date of Discharge 02/28/17 Specialist/Consultants Involve PCP - Dr. Jordan Dos Santos Discharge Summary PROCEDURES PERFORMED DURING STAY: None. DISCHARGE DIAGNOSES: 1. Orthostatic hypotension. 2. Dizziness. 3. Bradycardia. 4. HTN 5. Depression 6. Chronic lower back pain 7. Hyperlipidemia COMPLICATIONS/CHIEF COMPLAINT: Syncope And Collapse. HOSPITAL COURSE: 56-year old male presents for episode of syncope and confusion. Further evaluation appears patient collapsed secondary to lower extremity weakness, without LOC. However, shortly after patient collapsed again , with head trauma and states he may have lost consciousness. Patient admitted for further evaluation and treatment. Extensive workup was significant for bradycardia noted on telemetry and orthostasis. Hypertensive medications were adjust, and anti-depressant dosage decreased. Orthostasis resolved, bradycardia resolved, intermittent dizziness improved. Patient with pre-existing gait dysfunction, evaluated by PT deemed safe for discharge. DISCHARGE MEDICATIONS: Please see below. ALLERGIES: Please see below. PHYSICAL EXAMINATION ON DISCHARGE: VITAL SIGNS: Please see below. GENERAL: NAD HEENT: NC/AT, EOMI, PERRL NECK: supple CARDIOVASCULAR EXAMINATION: +S1S2, RRR RESPIRATORY EXAMINATION: CTA B/L ABDOMINAL EXAMINATION: soft, NT, +BS EXTREMITIES: no edema NEUROLOGICAL EXAMINATION: no gross focal deficits PSYCHIATRIC EXAMINATION: AAOx3 ACTIVITY: As tolerated, as per PT recs. DIET: 2 gram sodium DISPOSITION: Discharge home. DISCHARGE INSTRUCTIONS: 1. Follow up PCP in 3-5 days. 2. Follow up neurosurgery in [place] as scheduled. 3. Follow up Dr. العراقي - Urology - as scheduled. ITEMS TO FOLLOWUP ON ON OUTPATIENT: 1. Renal cysts with urology DISCHARGE CONDITION: Stable. TIME SPENT ON DISCHARGE: Greater than 30 minutes. Vital Signs/I&Os Vital Signs Date Time Temp Pulse Resp B/P (MAP) Pulse Ox O2 Delivery O2 Flow Rate FiO2 02/28/17 09:36 17 Room Air 02/28/17 08:16 72 136/65 02/28/17 08:00 97.7 99 I&O- Last 24 Hours up to 6 AM 02/28/17 06:00 Intake Total 1560 ml Output Total 225 ml Balance 1335 ml Discharge Medications Scheduled Amlodipine Besylate (Amlodipine Besylate) 5 Mg Tab, 5 MG PO DAILY Bupropion HCl (Bupropion HCl Xl) 300 Mg Tab, 300 MG PO DAILY, (Reported) Gabapentin (Gabapentin) 300 Mg Cap, 300 MG PO TID, (Reported) Lisinopril (Lisinopril) 40 Mg Tab, 40 MG PO DAILY, (Reported) [place] Carbonate ([place] Carbonate) 300 Mg Cap, 300 MG PO QHS, (Reported) Sertraline Hcl (Sertraline HCl) 25 Mg Tab, 75 MG PO DAILY Simvastatin - High Dose (Simvastatin) 40 Mg Tab, 40 MG PO DAILY, (Reported) Scheduled PRN Lorazepam (Lorazepam) 0.5 Mg Tab, 0.5 MG PO TID PRN for ANXIETY, (Reported) Oxycodone Hcl (Oxycodone HCl) 15 Mg Tab, 5 MG PO Q4HP PRN for PAIN, (Reported) Allergies Coded Allergies: Ibuprofen (Verified Adverse Reaction, Intermediate, HIGH FEVER, 07/26/13) ETHEL ERIC MD February 28, 2017 10:21
[2017-02-28 12:00] VITALS: BP 138/58
[2017-02-28 15:55] VITALS: BP_SYST 141; BP_SYST 162; BP_SYST 167; BP_DIAS 101; BP_DIAS 84; BP_DIAS 88
[2017-02-28] MEDS: ZONISAMIDE 25 MG CAP (ZONEGRAN) PO SCH ×2 (17:41→20:48)
[2017-02-28 20:00] VITALS: BP_SYST 138; BP_SYST 141; BP_SYST 147; BP_DIAS 105; BP_DIAS 81; BP_DIAS 86
[2017-02-28] MEDS: LITHIUM CARBONATE 300 MG CAP PO SCH (20:48)
[2017-03-01] MEDS: oxyCODONE 5MG TAB PO PRN ×5 (03:49→21:27)
[2017-03-01] MEDS: HEPARIN SOD (PORCINE) 5000 UNITS/ML VIAL SC SCH ×3 (05:02→21:27)
[2017-03-01] MEDS: SLF 3 ML SYR IV SCH ×3 (05:03→20:17)
[2017-03-01 08:00] VITALS: BP 141/82
[2017-03-01] MEDS: GABAPENTIN 300 MG CAP PO SCH ×3 (08:26→20:15)
[2017-03-01] MEDS: SERTRALINE HCL 25 MG TABLET PO SCH (08:26)
[2017-03-01] MEDS: SIMVASTATIN 40 MG TAB PO SCH (08:27)
[2017-03-01] MEDS: LISINOPRIL 40 MG TAB PO SCH (08:27)
[2017-03-01] MEDS: buPROPion **XL** TABLET 150MG (WELLBUTRIN XL) PO SCH (08:27)
[2017-03-01] MEDS: amLODIPine 5 MG TAB PO SCH (08:27)
[2017-03-01 12:00] VITALS: BP 130/70
--- NOTE | 2017-03-01 14:21 | IPNPDOC ---
Subjective Date Seen The patient was seen on 03/01/17. Subjective Chief Complaint/HPI The patient is a 56-year-old male admitted with a reason for visit of Syncope And Collapse. Events since last encounter Patient was discharged yesterday, but while getting ready to leave developed dizziness while getting up and fell against wall, no head trauma, did not fall to floor. Discharge cancelled. Neurology consulted for further assistance. General: Denies: ROS Unobtainable, Chills, Night Sweats, Fatigue, Malaise, Normal Appetite, Other Symptoms Constitutional: Denies: Chills, Fever, Malaise, Night Sweats, Weakness, Fatigue , Weight Loss, Lethargy, Other Eyes: Denies: Pain, Vision change, Conjunctivae inflammation, Eyelid inflammation, Redness, Other ENT: Denies: Head Aches, Ear Pain, Dysphagia, Sinus Congestion, Post Nasal Drip , Sore Throat, Epistaxis, Other Symptoms Skin: Denies: Rash, Lesions, Jaundice, Bruising, Itching, Dry, Breakdown, Nail Changes, Other Pulmonary: Denies: Dyspnea, Cough, Pleuritic Chest Pain, Other Symptoms Cardiovascular: Denies: Chest Pain, Palpitations, Orthopnea, Paroxysmal Noc. Dyspnea, Edema, Lt Headedness, Other Symptoms Gastrointestinal: Denies: Nausea, Vomiting, Abdominal Pain, Diarrhea, Constipation, Melena, Hematochezia, Other Symptoms Genitourinary: Denies: Dysuria, Frequency, Incontinence, Hematuria, Retention, Other Symptoms Objective Physical Examination General Exam: Positive: Alert, Cooperative, No Acute Distress Eye Exam: Positive: PERRLA, Conjunctiva & lids normal, EOMI, Negative: Sclera icteric ENT Exam: Positive: Atraumatic, Mucous membr. moist/pink Neck Exam: Positive: Supple Chest Exam: Positive: Clear to auscultation, Normal air movement Heart Exam: Positive: Rate Normal, Regular Rhythm Telemetry: Positive: No significant arrhythmia Abdomen Exam: Positive: Normal bowel sounds, Soft, Negative: Tenderness Extremity Exam: Negative: Edema Neuro Exam: Positive: Sensation Intact Psych Exam: Positive: Oriented x 3 Assessment /Plan Problems (1) Syncope and collapse Status: Chronic Response to Treatment: Stable, Improving Discussed With: Patient Problem Specific Plan: Monitor Clinically Problem Text: EEG unremarkable MRI/MRA brain-WNL 2D Echo- no cardiac etiology for syncope Carotid- WNL orthostatic yesterday eliza gonzalez/c - transition to norvasc zoloft decreased to 75mg PT eval/treat safe for d/c home Patient discharged yesterday - but on discharge developed dizziness again, fell against wall. neurology consulted - started zonisamide (2) Depression Status: Chronic Discussed With: Patient Problem Specific Plan: Monitor Clinically Problem Text: [facility] Has been on Zoloft for around 10 months, states dose was increased few months ago Also stated Wellbutrin started few months ago states dizziness started few months ago, patient states has been going for several months (3) HTN (hypertension) Status: Chronic Discussed With: Patient Problem Specific Plan: Monitor Clinically Problem Text: slightly elevated continue norvasc continue lisinopril (4) HLD (hyperlipidemia) Status: Chronic Problem Text: zocor (5) Chronic back pain Status: Chronic Problem Text: Acute on chronic resumed home dose pain meds oxir 10 q4hprn, gabapentin 300tid plans for c5-6 repair in [place] Plan/VTE VTE Prophylaxis Ordered?: Yes Plan Diet: Continue Current Activity: Continue Current Diagnostics: Repeat Labs in AM Anticipated Discharge: Home Neurology consultation pending. VS, I&O, 24H, Fishbone Vital Signs/I&O Vital Signs Date Time Temp Pulse Resp B/P (MAP) Pulse Ox O2 Delivery O2 Flow Rate FiO2 03/01/17 13:16 20 Room Air 03/01/17 12:00 98.3 101 130/70 (90) 99 I&O- Last 24 Hours up to 6 AM 03/01/17 06:00 Intake Total 600 ml Output Total 400 ml Balance 200 ml Laboratory Data 24H LABS Laboratory Tests 2 02/28/17 16:24: Bedside Glucose (Misc Panel) 105 ETHEL ERIC MD March 01, 2017 14:21
[2017-03-01 15:50] VITALS: BP 127/56
[2017-03-01] MEDS: ZONISAMIDE 25 MG CAP (ZONEGRAN) PO SCH (17:12)
[2017-03-01] MEDS: ASPIRIN 81 MG ENTERIC TAB PO SCH (17:47)
[2017-03-01 20:00] VITALS: BP 139/83
[2017-03-01] MEDS: LITHIUM CARBONATE 300 MG CAP PO SCH (20:16)
--- NOTE | 2017-03-01 20:44 | CR ---
DATE OF CONSULTATION: 03/01/2017 REFERRING PROVIDER: Dr. Enrico Russo REASON FOR CONSULTATION: Episodes of dizziness. HISTORY OF PRESENT ILLNESS: Edin Machado is a 56-year-old male with recent admission for episode of syncope. The patient was to be discharged yesterday but had an episode of dizziness upon standing. He was found to be orthostatic yesterday. His blood pressure medications are currently being adjusted. The patient does have a history of migraines. He was started on zonisamide 25 mg twice a day in the chance the patient may also currently suffer from vascular migraines. The patient describes a lightheaded feeling without vertigo. He denies any numbness or weakness of his face, arms, or legs. He denies any double vision, slurring of speech or difficulty with language. The patient had an MRI of the brain which was negative for any acute stroke. MR angiogram showed few focal scattered areas of intracranial stenosis involving the left intracerebral, anterior cerebral and middle cerebral arteries. However, no vessel cutoff, aneurysm or significant stenosis in either the right or left carotid systems was noted. Scattered atherosclerotic plaques were suggested. The patient will be started on aspirin 81 mg daily. He gave a history of using aspirin in the past but discontinued it on his own. He is unaware whether his cholesterol was elevated. He is a former smoker. PAST MEDICAL HISTORY: Migraine headaches, chronic back pain, chronic neck pain, generalized pain, hypertension, hyperlipidemia, depression, history of nephrolithiasis, bulging discs in the lumbar area. PAST SURGICAL HISTORY: Lithotripsy kidney stone removal, appendectomy, right trigger finger release. HOME MEDICATIONS: - bupropion 300 mg by mouth daily - diltiazem 240 mg by mouth daily - gabapentin 300 mg by mouth three times a day - lisinopril 40 mg by mouth daily - lithium carbonate 300 mg by mouth nightly - lorazepam 0.5 mg by mouth three times a day as needed for anxiety - oxycodone 5 mg by mouth every 4 hours as needed for pain - sertraline 100 mg by mouth daily - simvastatin 40 mg by mouth daily ALLERGIES: IBUPROFEN. SOCIAL HISTORY: The patient used to smoke tobacco and quit 35 years ago. Uses wine occasionally. He denies use of any current recreational drug use. He has a history of using marijuana in the past. FAMILY HISTORY: Significant for stroke and heart attack. REVIEW OF SYSTEMS: 14-point review of systems is negative except as per history of present illness (HPI). PHYSICAL EXAMINATION: Blood pressure 127/56, pulse rate 98, respiratory rate is 20. Pain is 0/10. Current height 5 feet 10 inches, current weight is 113.6 kg. The patient is alert, oriented to person, place and time. Speech, language, comprehension, repetition are intact. Pupils are 3 mm round, reactive to light. Extraocular movements are normal in all directions and without nystagmus. Sensation V1, V2, V3 is intact to light touch in all four extremities. No weakness of sternocleidomastoids bilaterally. Palate elevates symmetrically. Tongue is midline. Motor examination: Normal strength in bilateral deltoids, biceps, triceps, hand emergency medicine, iliopsoas, quadriceps, anterior tibialis. Deep tendon reflexes are 2+ throughout. Romberg testing is negative. Sensory is intact to light touch in all four extremities. Coordination: Normal [id number] without any signs of ataxia or dysmetria. The patient develops subjective lightheaded feeling upon standing without vertigo. This resolves after approximately 30 seconds. ASSESSMENT: 1. Episodes of dizziness, lightheadedness upon standing with history of orthostatic hypotension as of yesterday. 2. History of migraine headaches. PLAN: 1. Continue with zonisamide 25 mg by mouth twice a day. 2. Recommend optimal management of orthostatic hypotension with adjustment of blood pressure medications. 3. RTC as an outpatient in the neurology clinic. EEG 02/22/2017 was normal. PLAN: Restart aspirin 81 mg by mouth daily. Check fasting lipid profile. There is evidence of focal intracranial stenosis without significant flow-limiting stenosis.
[2017-03-01 23:55] VITALS: BP_SYST 122; BP_SYST 158; BP_SYST 159; BP_DIAS 68; BP_DIAS 74; BP_DIAS 87
[2017-03-02] MEDS: oxyCODONE 5MG TAB PO PRN ×6 (01:15→22:20)
[2017-03-02 04:45] VITALS: BP 142/93
[2017-03-02] MEDS: ZONISAMIDE 25 MG CAP (ZONEGRAN) PO SCH ×2 (05:34→17:02)
[2017-03-02] MEDS: HEPARIN SOD (PORCINE) 5000 UNITS/ML VIAL SC SCH ×3 (05:35→22:20)
[2017-03-02] MEDS: SLF 3 ML SYR IV SCH ×3 (05:36→20:08)
[2017-03-02 08:00] VITALS: BP 118/66
[2017-03-02] MEDS: SERTRALINE HCL 25 MG TABLET PO SCH (08:46)
[2017-03-02] MEDS: buPROPion **XL** TABLET 150MG (WELLBUTRIN XL) PO SCH (08:47)
[2017-03-02] MEDS: LISINOPRIL 40 MG TAB PO SCH (08:47)
[2017-03-02] MEDS: ASPIRIN 81 MG ENTERIC TAB PO SCH (08:48)
[2017-03-02] MEDS: GABAPENTIN 300 MG CAP PO SCH ×3 (08:48→20:07)
[2017-03-02] MEDS: SIMVASTATIN 40 MG TAB PO SCH (08:48)
[2017-03-02] MEDS: amLODIPine 5 MG TAB PO SCH (08:48)
[2017-03-02 12:00] VITALS: BP 122/74
[2017-03-02 16:00] VITALS: BP 125/76
--- NOTE | 2017-03-02 17:46 | IPNPDOC ---
Subjective Date Seen The patient was seen on 03/02/17. Subjective Chief Complaint/HPI The patient is a 56-year-old male admitted with a reason for visit of Syncope And Collapse. Events since last encounter Did have orthostatic symptoms yesterday when seen by neurology, no head ache, no chest pain, not short or breath, wants to get out and walk today ENT: Denies: Head Aches Pulmonary: Denies: Dyspnea, Cough Cardiovascular: Denies: Chest Pain, Palpitations Gastrointestinal: Denies: Nausea, Vomiting, Abdominal Pain, Constipation Objective Physical Examination General Exam: Positive: Alert, Cooperative, No Acute Distress Eye Exam: Negative: Sclera icteric Neck Exam: Positive: Supple Chest Exam: Positive: Clear to auscultation, Normal air movement Heart Exam: Positive: Rate Normal, Regular Rhythm Telemetry: Positive: No significant arrhythmia Abdomen Exam: Positive: Normal bowel sounds, Soft, Negative: Tenderness Extremity Exam: Negative: Edema Neuro Exam: Positive: Sensation Intact Psych Exam: Positive: Oriented x 3 Assessment /Plan Problems (1) Syncope and collapse Status: Chronic Response to Treatment: Stable, Improving Discussed With: Patient Problem Specific Plan: Monitor Clinically Problem Text: EEG unremarkable MRI/MRA brain-WNL 2D Echo- no cardiac etiology for syncope Carotid- WNL orthostatic yesterday cardizem d/c - transition to norvasc zoloft decreased to 75mg PT eval/treat safe for d/c home Patient discharged yesterday - but on discharge developed dizziness again, fell against wall. Found to be orthostatic neurology consulted - started zonisamide Possible untreated JAMES (2) Depression Status: Chronic Discussed With: Patient Problem Specific Plan: Monitor Clinically Problem Text: recent [facility] Has been on Zoloft for around 10 months, states dose was increased few months ago Also stated Wellbutrin started few months ago states dizziness started few months ago, patient states has been going for several months (3) HTN (hypertension) Status: Chronic Discussed With: Patient Problem Specific Plan: Monitor Clinically Problem Text: slightly elevated continue norvasc continue lisinopril repeat orthostatics (4) HLD (hyperlipidemia) Status: Chronic Problem Text: zocor (5) Chronic back pain Status: Chronic Problem Text: Acute on chronic resumed home dose pain meds oxir 10 q4hprn, gabapentin 300tid plans for c5-6 repair in [place] Plan/VTE VTE Prophylaxis Ordered?: Yes Plan Diet: Continue Current Activity: Continue Current Diagnostics: Repeat Labs in AM Anticipated Discharge: Home VS, I&O, 24H, Wendy Vital Signs/I&O Vital Signs Date Time Temp Pulse Resp B/P (MAP) Pulse Ox O2 Delivery O2 Flow Rate FiO2 03/02/17 17:28 20 03/02/17 16:00 98.8 91 125/76 (92) 97 Room Air I&O- Last 24 Hours up to 6 AM 03/02/17 06:00 Intake Total 1320 ml Output Total 1800 ml Balance -480 ml Laboratory Data 24H LABS Laboratory Tests 2 03/02/17 05:44: Triglycerides Level 93, LDL Cholesterol 72.4, Total Cholesterol 159, Non-HDL Cholesterol (LDL + VLDL) 91, Total HDL Cholesterol 68, Cholesterol/HDL Ratio 2.338 MARÍA JACQUES MD March 02, 2017 17:46
[2017-03-02 19:28] VITALS: BP_SYST 135; BP_SYST 143; BP_DIAS 61; BP_DIAS 82; BP_DIAS 84
[2017-03-02] MEDS: LITHIUM CARBONATE 300 MG CAP PO SCH (20:07)
[2017-03-02 23:59] VITALS: BP 134/66
[2017-03-03] MEDS: oxyCODONE 5MG TAB PO PRN ×4 (02:46→14:42)
[2017-03-03 04:54] VITALS: BP 124/69
[2017-03-03] MEDS: HEPARIN SOD (PORCINE) 5000 UNITS/ML VIAL SC SCH ×2 (06:11→14:00)
[2017-03-03] MEDS: SLF 3 ML SYR IV SCH ×2 (06:11→14:00)
[2017-03-03] MEDS: ZONISAMIDE 25 MG CAP (ZONEGRAN) PO SCH (06:11)
[2017-03-03 08:00] VITALS: BP_SYST 129; BP_SYST 130; BP_SYST 132; BP_DIAS 70; BP_DIAS 71; BP_DIAS 78
[2017-03-03] MEDS: GABAPENTIN 300 MG CAP PO SCH ×2 (09:28→15:19)
[2017-03-03] MEDS: buPROPion **XL** TABLET 150MG (WELLBUTRIN XL) PO SCH (09:28)
[2017-03-03] MEDS: ASPIRIN 81 MG ENTERIC TAB PO SCH (09:28)
[2017-03-03 09:29] VITALS: BP 132/70
[2017-03-03] MEDS: LISINOPRIL 40 MG TAB PO SCH (09:29)
[2017-03-03] MEDS: SIMVASTATIN 40 MG TAB PO SCH (09:29)
[2017-03-03] MEDS: SERTRALINE HCL 25 MG TABLET PO SCH (09:29)
[2017-03-03] MEDS: amLODIPine 5 MG TAB PO SCH (09:29)
[2017-03-03 12:00] VITALS: BP 135/79
[2017-03-03] MEDS ORDERED: ASPI81TAEC PO (12:29)
[2017-03-03] MEDS ORDERED: ZONE25CA5 PO (12:29)
--- NOTE | 2017-03-05 16:20 | DSES ---
DATE OF ADMISSION: 02/21/2017 DATE OF DISCHARGE: 03/03/2017 Specialists involved in care include Dr. Joe Sheth. No procedures performed during his stay. No complications. DISCHARGE DIAGNOSES: 1. Orthostatic hypotension. 2. Dizziness. 3. Bradycardia. 4. Hypertension. 5. Depression. 6. Chronic lower back pain. 7. Hyperlipidemia. Please see Dr. Russo's interim discharge summary on 02/28/2017. The following is a summary of his interim course: The patient went on to develop orthostatic hypotension which was symptomatic, was monitored in hospital, his medications were adjusted, this resolved. He was passed by physical therapy with rolling walker and seen in consultation by Dr. Sheth who suggested additional medication. On the date of discharge, he is feeling well, he is ambulating without difficulty, no complaints of pain, chest pain, or shortness of breath, no symptoms of orthostasis. Temperature 98.3, pulse 78, respiratory rate 18, blood pressure 135/79, 98% on room air. Awake and appropriately interactive, pleasantly conversant. Breathing is symmetrical and rested. Heart is in a regular rate and rhythm. Abdomen soft, doughy, nontender. White cell count 7.7 most recently and creatinine is 1.14 most recently. DISCHARGE INSTRUCTIONS: Include the following: Call for a followup with Dr. Dos Santos in 3-[address] العراقي, Dr. Gunderson as scheduled, Dr. Delgado at [facility]. Dr. Dos Santos's appointment is 03/09/2017, at 9:30 a.m. MEDICATIONS: At the time of discharge include: - amlodipine 5 mg by mouth daily - aspirin 81 mg by mouth daily - sertraline 75 by mouth daily - Zonegran 25 mg by mouth every 12 hours - Wellbutrin XL 300 mg by mouth daily - Neurontin 300 mg by mouth three times a day - lisinopril 40 mg by mouth daily - lithium 300 mg by mouth at bedtime - oxycodone 5 mg by mouth every 4 hours as needed for pain - simvastatin 40 mg by mouth daily Discontinue diltiazem, discontinue Ativan, discontinue previous dose of sertraline.
== END 2017-03-03 18:00 | disposition home health service (06) | DRG 204 ==
LOC: EDBD 00:10 → M ED 01:12 → OBSVTOIN 03:28 → M ED INP 03:28 → M PCU 05:11 → OBSVTOIN 02-24 06:28 → INTOOBSV 02-24 06:28
PROVIDERS: ADMIT Hospitalist; ATTEND Internal Medicine
DX: R55 Syncope and collapse (principal); I10 Essential (primary) hypertension; F32.9 Major depressive disorder, single episode, unspecified; M54.5 Low back pain; E78.5 Hyperlipidemia, unspecified; F41.9 Anxiety disorder, unspecified; M54.2 Cervicalgia; R00.1 Bradycardia, unspecified; Z79.82 Long term (current) use of aspirin; Z79.899 Other long term (current) drug therapy; Z88.6 Allergy status to analgesic agent; Z87.891 Personal history of nicotine dependence; Z80.9 Family history of malignant neoplasm, unspecified; Z82.49 Family history of ischemic heart disease and other diseases of the circulatory system; Z83.6 Family history of other diseases of the respiratory system; Z84.1 Family history of disorders of kidney and ureter; Z87.442 Personal history of urinary calculi

== ENCOUNTER 2017-03-29 17:45 | Emergency (ER) | payer OTHER ==
[~2017-03-29] VITALS: Ht 177.8 cm; Wt 109.6 kg
[~2017-03-29 17:45] MED LIST changes: +AMLO5TAB2 PO; +ASPI81TAEC PO; -CART240C; +CART240C3; +LORA0.5T11 PO; -METH-107 PO; +METH1TAB40 PO; +SERT25TA PO; +TRAZ50TA11 PO; -TRAZ50TA4 PO; +ZONE25CA5 PO
[2017-03-29] MEDS ORDERED: HYDROmorphone HCL 1 MG/ML SYRINGE (J1170) IM ONE (20:00)
[2017-03-29] MEDS ORDERED: methylPREDNISolone INJ 125 MG/2 ML VIAL (J2930) IM ONE (20:00)
[2017-03-29] MEDS ORDERED: MEDR4PAK PO (20:44)
[2017-03-29 20:52] VITALS: BP 136/73
[2017-04-09] MEDS ORDERED: TRAZ50TA11 PO (12:09)
[2017-04-09] MEDS ORDERED: TRAM50TA2 PO (12:09)
[2017-04-09] MEDS ORDERED: LORA0.5T11 PO (12:09)
[2017-07-22] MEDS ORDERED: OXYC1TAB23 PO (11:44)
[2017-08-06] MEDS ORDERED: OXYC-517 (17:28)
== END 2017-03-29 20:56 | disposition home or self-care (01) ==
LOC: M ED 19:02
DX: G89.29 Other chronic pain (principal); M54.5 Low back pain; I10 Essential (primary) hypertension; N40.0 Benign prostatic hyperplasia without lower urinary tract symptoms; G47.33 Obstructive sleep apnea (adult) (pediatric); G43.909 Migraine, unspecified, not intractable, without status migrainosus; F41.9 Anxiety disorder, unspecified; F32.9 Major depressive disorder, single episode, unspecified; E78.00 Pure hypercholesterolemia, unspecified; Z87.442 Personal history of urinary calculi; Z90.89 Acquired absence of other organs; Z79.899 Other long term (current) drug therapy; Z88.6 Allergy status to analgesic agent

== ENCOUNTER → 2017-03-31 | Outpatient (CLI) | payer OTHER ==
[~2017-03-31] MED LIST changes: +CART240C; -CART240C3; +LORA-376 PO; -LORA0.5T11 PO; +MEDR4PAK PO; +METH-107 PO; -METH1TAB40 PO; -TRAZ50TA11 PO; +TRAZ50TA4 PO
[2017-03-31 15:00] LABS: INR 1.02; MEAN CORPUSCULAR HEMOGLOBIN 30.3 pg (27.0-33.0); MEAN CORPUSCULAR HGB CONC 35.1 g/dl (32.0-36.5); MEAN CORPUSCULAR VOLUME 86.4 fl (80.0-96.0); RED CELL DISTRIBUTION WIDTH 12.5 % (11.5-14.5); WHITE BLOOD COUNT 10.1 K/mm3 (4.0-10.0)
[2017-03-31 15:23] LABS: ALBUMIN 4.3 GM/DL (3.2-5.2); ALBUMIN/GLOBULIN RATIO 1.13 (1.00-1.93); ALKALINE PHOSPHATASE 73 U/L (45-117); ALT/SGPT 33 U/L (12-78); ANION GAP 7 MEQ/L (8-16); AST/SGOT 16 U/L (15-37); BILIRUBIN,TOTAL 0.3 MG/DL (0.2-1.0); BLOOD UREA NITROGEN 22 MG/DL (7-18); CALCIUM LEVEL 9.2 MG/DL (8.5-10.1); CARBON DIOXIDE LEVEL 28 MEQ/L (21-32); CHLORIDE LEVEL 105 MEQ/L (98-107); CREATININE FOR GFR 1.48 MG/DL (0.70-1.30); GLOMERULAR FILTRATION RATE > 60.0 (>56); GLUCOSE, FASTING 87 MG/DL (70-105); POTASSIUM SERUM 4.4 MEQ/L (3.5-5.1); SODIUM LEVEL 140 MEQ/L (136-145); TOTAL PROTEIN 8.1 GM/DL (6.4-8.2)
== END ==
LOC: M LAB 13:10
PROVIDERS: ATTEND Nurse Practitioner Family
DX: Z01.818 Encounter for other preprocedural examination (principal); N40.0 Benign prostatic hyperplasia without lower urinary tract symptoms

== ENCOUNTER → 2017-04-15 | Outpatient (REF) | payer OTHER ==
[~2017-04-15] MED LIST changes: -CART240C; +CART240C3; +CIPR-249 PO; +DITR1TAB PO; -LORA-376 PO; +LORA0.5T11 PO; -METH-107 PO; +METH1TAB40 PO; +OXYC-517; +OXYC1TAB23 PO; +PERC5TAB12 PO; +TRAZ50TA11 PO; -TRAZ50TA4 PO
== END ==
LOC: M SMT 17:19
PROVIDERS: ATTEND Nurse Practitioner Family
DX: Z01.818 Encounter for other preprocedural examination (principal); N40.0 Benign prostatic hyperplasia without lower urinary tract symptoms

== ENCOUNTER → 2017-04-19 | Outpatient (REF) | payer OTHER | LOC: M SFHCLERA 11:11 | PROVIDERS: ATTEND Family Medicine | DX: Z13.1 Encounter for screening for diabetes mellitus (principal); E78.5 Hyperlipidemia, unspecified ==

== ENCOUNTER 2017-04-23 03:52 | Emergency (ER) | payer OTHER ==
[~2017-04-23] VITALS: Ht 172.7 cm; Wt 105.8 kg
[~2017-04-23 03:52] MED LIST changes: -CIPR-249 PO; -DITR1TAB PO; -OXYC-517; -OXYC1TAB23 PO; -PERC5TAB12 PO
[2017-04-23] MEDS ORDERED: ASPIRIN 81 MG CHEW TABLET PO ONE (07:30)
[2017-04-23] MEDS ORDERED: HYDROmorphone HCL 1 MG/ML SYRINGE (J1170) IV ONE (07:30)
[2017-04-23 07:58] LABS: BASO % 0.8 % (0.0-1.0); EOS # 0.4 K/mm3 (0.0-0.50); EOS % 5.5 % (0.0-3.0); LARGE UNSTAINED CELL # 0.1 K/mm3 (0.0-0.4); LARGE UNSTAINED CELL % 1.3 % (0.0-4.0); LYMPH # 2.6 K/mm3 (1.5-4.5); LYMPH % 37.5 % (24.0-44.0); MEAN CORPUSCULAR HEMOGLOBIN 29.5 pg (27.0-33.0); MEAN CORPUSCULAR HGB CONC 34.4 g/dl (32.0-36.5); MEAN CORPUSCULAR VOLUME 85.6 fl (80.0-96.0); MONO # 0.4 K/mm3 (0.0-0.8); MONO % 5.9 % (0.0-5.0); NEUTROPHILS # 3.3 K/mm3 (1.8-7.7); NEUTROPHILS % 49.1 % (36.0-66.0); PLATELET COUNT, AUTOMATED 278 k/mm3 (150-450); RED CELL DISTRIBUTION WIDTH 12.5 % (11.5-14.5); WHITE BLOOD COUNT 6.8 K/mm3 (4.0-10.0)
[2017-04-23 08:25] LABS: ANION GAP 5 MEQ/L (8-16); BLOOD UREA NITROGEN 13 MG/DL (7-18); CALCIUM LEVEL 9.4 MG/DL (8.5-10.1); CARBON DIOXIDE LEVEL 29 MEQ/L (21-32); CHLORIDE LEVEL 105 MEQ/L (98-107); CREATININE FOR GFR 1.05 MG/DL (0.70-1.30); GLOMERULAR FILTRATION RATE > 60.0 (>56); GLUCOSE, FASTING 116 MG/DL (70-105); POTASSIUM SERUM 3.8 MEQ/L (3.5-5.1); SODIUM LEVEL 139 MEQ/L (136-145)
--- NOTE | 2017-04-23 09:25 | REP ---
CHEST, PORTABLE, SINGLE VIEW: COMPARISON: 02/21/2017. There is no evidence of acute infiltrate. No pleural effusion is seen. The heart is normal in size. The mediastinal silhouette is unremarkable. The visualized osseous structures are intact. IMPRESSION: No acute pulmonary disease. Signed by George Crooks MD 04/23/2017 05:21 P
[2017-04-23] MEDS ORDERED: GABAPENTIN 300 MG CAP PO ONE (09:45)
[2017-04-23] MEDS ORDERED: LISINOPRIL 40 MG TAB PO ONE (09:45)
[2017-04-23] MEDS ORDERED: amLODIPine 5 MG TAB PO ONE (09:45)
[2017-04-23] MEDS ORDERED: oxyCODONE 10 MG CR TAB PO ONE (10:30)
[2017-04-23] MEDS ORDERED: PERCOCET 5MG/325MG TAB PO ONE (10:45)
[2017-04-23 12:05] VITALS: BP 139/79
--- NOTE | 2017-04-23 21:30 | ECGEPIP ---
Stationary ECG Study [facility] - ED Test Date: 2017-04-23 Pat Name: PARIS RICE Department: Room: - Gender: M [employer] [facility] Practitioner: desmond : 1960 Requested By: MANJIT Arzola Order Number: [id number] Reading MD: Blanca Epstein Measurements Intervals [place] Rate: 73 P: 4 AR: 169 QRS: -9 QRSD: 88 T: 3 QT: 361 QTc: 400 Interpretive Statements SINUS RHYTHM NSTTW ABNORMALITY Electronically Signed On 04-23-2017 21:29:42 EDT by Blanca Epstein
[2017-07-22] MEDS ORDERED: OXYC1TAB23 PO (11:44)
[2017-08-06] MEDS ORDERED: OXYC-517 (17:28)
== END 2017-04-23 12:07 | disposition home or self-care (01) ==
LOC: M ED 03:52
DX: R07.9 Chest pain, unspecified (principal); G89.29 Other chronic pain; M54.9 Dorsalgia, unspecified; M54.2 Cervicalgia; F41.9 Anxiety disorder, unspecified; F32.9 Major depressive disorder, single episode, unspecified; Z87.442 Personal history of urinary calculi; N28.89 Other specified disorders of kidney and ureter; Z79.82 Long term (current) use of aspirin; Z79.899 Other long term (current) drug therapy; Z88.6 Allergy status to analgesic agent

== ENCOUNTER 2017-05-05 19:09 | Emergency (ER) | payer OTHER ==
[~2017-05-05] VITALS: Ht 177.8 cm; Wt 111.4 kg
[2017-05-05] MEDS ORDERED: HYDROmorphone HCL 1 MG/ML SYRINGE (J1170) IM PRN (20:30)
[2017-05-05] MEDS ORDERED: methylPREDNISolone INJ 125 MG/2 ML VIAL (J2930) IM ONE (21:00)
[2017-05-05] MEDS ORDERED: PERC5TAB12 PO (21:44)
[2017-05-05] MEDS ORDERED: OXYCODONE/APAP 5MG/325MG(BULK FOR ED) 1 TABLET PO ONE (21:45)
[2017-05-05 21:50] VITALS: BP 154/96
[2017-07-22] MEDS ORDERED: OXYC1TAB23 PO (11:44)
[2017-08-06] MEDS ORDERED: OXYC-517 (17:28)
== END 2017-05-05 22:02 | disposition home or self-care (01) ==
LOC: M ED 19:09
DX: M54.5 Low back pain (principal); I11.0 Hypertensive heart disease with heart failure; G43.909 Migraine, unspecified, not intractable, without status migrainosus; F41.9 Anxiety disorder, unspecified; F32.9 Major depressive disorder, single episode, unspecified; N40.0 Benign prostatic hyperplasia without lower urinary tract symptoms; Z87.442 Personal history of urinary calculi; Z90.89 Acquired absence of other organs; Z79.82 Long term (current) use of aspirin; Z79.899 Other long term (current) drug therapy; Z88.6 Allergy status to analgesic agent
CPT/HCPCS: 96372; 99282; J1170; J2930

== ENCOUNTER → 2017-05-06 | Outpatient (REF) | payer OTHER ==
[~2017-05-06] MED LIST changes: +CIPR-249 PO; +DITR1TAB PO; +OXYC-517; +OXYC1TAB23 PO; +PERC5TAB12 PO
== END ==
LOC: M SMT 16:52
PROVIDERS: ATTEND Urology
DX: N39.0 Urinary tract infection, site not specified (principal)

== ENCOUNTER → 2017-05-18 | Outpatient (CLI) | payer OTHER ==
--- NOTE | 2017-05-21 15:21 | SLEEPHOME ---
DATE OF PROCEDURE: 05/18/2017 REFERRING PHYSICIAN: Jessica Hernandez INTERPRETATION: Diagnostic home sleep testing was performed due to concern for the obstructive sleep apnea syndrome in this patient with a history of excessive somnolence and hypertension. For testing NOX-T3 respiratory monitoring device was used. Continuous record was made of pulse, oxygen saturation, airflow, chest and abdominal strain, and body position. 10 hours and 59 minutes of data were reviewed. There were 6 hours and 14 minutes marked as time in bed. During the interval marked time in bed, there were 130 respiratory events identified of 10 seconds in duration or greater for a respiratory event index of 20.8. The events were primarily obstructive. Baseline pulse rate 69 beats per minute. Pulse rate ranged 51 to 105. Baseline saturation 95%. Lowest oxygen saturation 72%. Testing was performed in both the supine and nonsupine positions. IMPRESSION: Abnormal home sleep testing with repetitive respiratory events and oxygen desaturations to 72% with a respiratory event index of 20.8, is consistent with the obstructive sleep apnea syndrome. RECOMMENDATION: The patient should be encouraged to undergo formal sleep evaluation and in laboratory pressure titration.
== END ==
LOC: M SLEEP HO 11:57
PROVIDERS: ATTEND Nurse Practitioner Adult Health
DX: G47.30 Sleep apnea, unspecified (principal)

== ENCOUNTER 2017-05-24 10:18 | Emergency (ER) | payer OTHER ==
[~2017-05-24] VITALS: Ht 177.8 cm; Wt 113.6 kg
[~2017-05-24 10:18] MED LIST changes: -CIPR-249 PO; -DITR1TAB PO; -OXYC-517; -OXYC1TAB23 PO
--- NOTE | 2017-05-24 12:03 | REP ---
Duplex extremity venous ultrasound: Right lower extremity. History: Pain and swelling. Findings: The deep veins are anechoic and fully compressible from the groin to the popliteal fossa in the right lower extremity. Color flow imaging is homogeneous. Spectral Doppler interrogation demonstrates intact respiratory variation in flow and normal manual augmentation of flow. There is no evidence of deep vein thrombosis. The palpable area lateral to and above the ankle in the right lower extremity is scanned sonographically. This demonstrates a slightly complex septated cystic area 2.3 x 0.8 x 1.4 cm in diameter most compatible with ganglion cyst. No Doppler flow is seen within this. Diffuse subcutaneous edema is seen in this region as well. Impression: Negative right lower extremity duplex venous ultrasound. No evidence of deep vein thrombosis. 2.3 cm cystic area at the level of the palpable abnormality superior and lateral to the right ankle. Question ganglion cyst. Signed by Pedro Crews MD 05/24/2017 02:11 P
[2017-05-24 12:32] VITALS: BP 144/81
[2017-07-22] MEDS ORDERED: OXYC1TAB23 PO (11:44)
[2017-08-06] MEDS ORDERED: OXYC-517 (17:28)
[2017-08-19] MEDS ORDERED: METH1TAB40 PO (06:26)
[2017-08-19] MEDS ORDERED: DITR1TAB PO (06:26)
[2017-08-19] MEDS ORDERED: IRON65TA PO (06:26)
== END 2017-05-24 12:33 | disposition home or self-care (01) ==
LOC: M ED 10:18
DX: M67.471 Ganglion, right ankle and foot (principal); I10 Essential (primary) hypertension; E87.5 Hyperkalemia; F41.9 Anxiety disorder, unspecified; F32.9 Major depressive disorder, single episode, unspecified; G89.29 Other chronic pain; M54.9 Dorsalgia, unspecified; G43.909 Migraine, unspecified, not intractable, without status migrainosus; N40.0 Benign prostatic hyperplasia without lower urinary tract symptoms; N28.89 Other specified disorders of kidney and ureter; Z79.82 Long term (current) use of aspirin; Z79.899 Other long term (current) drug therapy; Z88.6 Allergy status to analgesic agent

== ENCOUNTER 2017-06-02 23:27 | Emergency (ER) | payer OTHER ==
[~2017-06-02] VITALS: Ht 177.8 cm; Wt 113.6 kg
[~2017-06-02 23:27] MED LIST changes: -CIPR-249 PO; -DITR1TAB PO; -IRON65TA PO; -OXYC-517; -OXYC1TAB23 PO
[2017-06-02 23:29] VITALS: BP 141/91
[2017-07-22] MEDS ORDERED: OXYC1TAB23 PO (11:44)
[2017-08-06] MEDS ORDERED: OXYC-517 (17:28)
[2017-08-19] MEDS ORDERED: IRON65TA PO (06:26)
[2017-08-19] MEDS ORDERED: METH1TAB40 PO (06:26)
[2017-08-19] MEDS ORDERED: DITR1TAB PO (06:26)
== END 2017-06-03 02:35 | disposition left against medical advice (07) ==
LOC: M ED 23:27
DX: M54.9 Dorsalgia, unspecified (principal); Z53.21 Procedure and treatment not carried out due to patient leaving prior to being seen by health care provider

== ENCOUNTER → 2017-06-02 | Outpatient (CLI) | payer OTHER ==
[~2017-06-02] MED LIST changes: +CIPR-249 PO; +DITR1TAB PO; +IRON65TA PO; +OXYC-517; +OXYC1TAB23 PO
[2017-06-02 14:31] LABS: MEAN CORPUSCULAR HEMOGLOBIN 30.6 pg (27.0-33.0); MEAN CORPUSCULAR VOLUME 86.6 fl (80.0-96.0); WHITE BLOOD COUNT 5.5 K/mm3 (4.0-10.0)
[2017-06-02 14:32] LABS: MEAN CORPUSCULAR HGB CONC 35.3 g/dl (32.0-36.5); RED CELL DISTRIBUTION WIDTH 12.8 % (11.5-14.5)
[2017-06-02 15:05] LABS: ANION GAP 11 MEQ/L (8-16); BLOOD UREA NITROGEN 12 MG/DL (7-18); CALCIUM LEVEL 8.8 MG/DL (8.5-10.1); CARBON DIOXIDE LEVEL 24 MEQ/L (21-32); CHLORIDE LEVEL 109 MEQ/L (98-107); CREATININE FOR GFR 1.17 MG/DL (0.70-1.30); GLOMERULAR FILTRATION RATE > 60.0 (>56); GLUCOSE, FASTING 114 MG/DL (70-105); POTASSIUM SERUM 3.9 MEQ/L (3.5-5.1); SODIUM LEVEL 144 MEQ/L (136-145)
== END ==
LOC: M LAB 13:46
PROVIDERS: ATTEND Urology
DX: Z01.818 Encounter for other preprocedural examination (principal); N40.1 Benign prostatic hyperplasia with lower urinary tract symptoms; N39.0 Urinary tract infection, site not specified

== ENCOUNTER → 2017-06-02 | Outpatient (REF) | payer OTHER ==
[2017-06-02 12:24] LABS: ALBUMIN 3.9 GM/DL (3.2-5.2); ALBUMIN/GLOBULIN RATIO 1.11 (1.00-1.93); ALKALINE PHOSPHATASE 62 U/L (45-117); ALT/SGPT 20 U/L (12-78); ANION GAP 9 MEQ/L (8-16); AST/SGOT 12 U/L (15-37); BILIRUBIN,TOTAL 0.3 MG/DL (0.2-1.0); BLOOD UREA NITROGEN 12 MG/DL (7-18); CALCIUM LEVEL 8.8 MG/DL (8.5-10.1); CARBON DIOXIDE LEVEL 26 MEQ/L (21-32); CHLORIDE LEVEL 108 MEQ/L (98-107); CREATININE FOR GFR 1.18 MG/DL (0.70-1.30); FERRITIN 23 NG/ML (26-388); GLOMERULAR FILTRATION RATE > 60.0 (>56); GLUCOSE, FASTING 114 MG/DL (70-105); POTASSIUM SERUM 3.9 MEQ/L (3.5-5.1); SODIUM LEVEL 143 MEQ/L (136-145); TOTAL PROTEIN 7.4 GM/DL (6.4-8.2)
[2017-06-02 12:45] LABS: INR 1.03
[2017-06-02 12:50] LABS: MEAN CORPUSCULAR HEMOGLOBIN 30.6 pg (27.0-33.0); MEAN CORPUSCULAR HGB CONC 35.3 g/dl (32.0-36.5); MEAN CORPUSCULAR VOLUME 86.6 fl (80.0-96.0); RED CELL DISTRIBUTION WIDTH 12.8 % (11.5-14.5); WHITE BLOOD COUNT 5.5 K/mm3 (4.0-10.0)
[2017-06-02 13:58] LABS: BANDS 2 % (< 11); BASOPHILS 1 % (0-4); EOSINOPHILS 10 % (0-5)
[2017-06-02 13:59] LABS: POIKILOCYTOSIS 1+
== END ==
LOC: M SFHCLERA 09:32
PROVIDERS: ATTEND Family Medicine
DX: Z01.818 Encounter for other preprocedural examination (principal); D64.9 Anemia, unspecified

== ENCOUNTER 2017-06-04 05:35 | Emergency (ER) | payer OTHER ==
[~2017-06-04] VITALS: Ht 177.8 cm; Wt 114.0 kg
[2017-06-04] MEDS ORDERED: NS 1,000 ML IV ONE (06:30)
[2017-06-04 06:59] LABS: BASO % 0.7 % (0.0-1.0); EOS # 0.5 K/mm3 (0.0-0.50); EOS % 7.2 % (0.0-3.0); LARGE UNSTAINED CELL # 0.2 K/mm3 (0.0-0.4); LARGE UNSTAINED CELL % 2.4 % (0.0-4.0); LYMPH % 42.1 % (24.0-44.0); MEAN CORPUSCULAR HEMOGLOBIN 30.3 pg (27.0-33.0); MEAN CORPUSCULAR HGB CONC 35.2 g/dl (32.0-36.5); MEAN CORPUSCULAR VOLUME 86.1 fl (80.0-96.0); MONO # 0.4 K/mm3 (0.0-0.8); NEUTROPHILS % 41.6 % (36.0-66.0); PLATELET COUNT, AUTOMATED 288 k/mm3 (150-450); WHITE BLOOD COUNT 7.2 K/mm3 (4.0-10.0)
[2017-06-04 07:20] LABS: ALBUMIN 3.9 GM/DL (3.2-5.2); ALBUMIN/GLOBULIN RATIO 1.08 (1.00-1.93); ALKALINE PHOSPHATASE 61 U/L (45-117); ALT/SGPT 22 U/L (12-78); ANION GAP 7 MEQ/L (8-16); AST/SGOT 15 U/L (15-37); BILIRUBIN,DIRECT 0.1 MG/DL (0.0-0.2); BILIRUBIN,TOTAL 0.4 MG/DL (0.2-1.0); BLOOD UREA NITROGEN 14 MG/DL (7-18); CALCIUM LEVEL 8.9 MG/DL (8.5-10.1); CARBON DIOXIDE LEVEL 28 MEQ/L (21-32); CHLORIDE LEVEL 107 MEQ/L (98-107); CREATININE FOR GFR 1.19 MG/DL (0.70-1.30); GLOMERULAR FILTRATION RATE > 60.0 (>56); GLUCOSE, FASTING 104 MG/DL (70-105); POTASSIUM SERUM 3.8 MEQ/L (3.5-5.1); SODIUM LEVEL 142 MEQ/L (136-145); TOTAL PROTEIN 7.5 GM/DL (6.4-8.2)
[2017-06-04 07:21] LABS: LITHIUM LEVEL < 0.20 MEQ/L (0.60-1.20)
[2017-06-04] MEDS ORDERED: HYDROmorphone HCL 1 MG/ML SYRINGE (J1170) IV ONE (07:30)
[2017-06-04 08:37] VITALS: BP 148/64
[2017-07-22] MEDS ORDERED: OXYC1TAB23 PO (11:44)
[2017-08-06] MEDS ORDERED: OXYC-517 (17:28)
[2017-08-19] MEDS ORDERED: IRON65TA PO (06:26)
[2017-08-19] MEDS ORDERED: DITR1TAB PO (06:26)
[2017-08-19] MEDS ORDERED: METH1TAB40 PO (06:26)
== END 2017-06-04 08:38 | disposition home or self-care (01) ==
LOC: M ED 05:35
DX: G89.29 Other chronic pain (principal); M54.9 Dorsalgia, unspecified; G43.909 Migraine, unspecified, not intractable, without status migrainosus; I10 Essential (primary) hypertension; E78.00 Pure hypercholesterolemia, unspecified; G47.30 Sleep apnea, unspecified; N28.89 Other specified disorders of kidney and ureter; Z87.442 Personal history of urinary calculi; N40.0 Benign prostatic hyperplasia without lower urinary tract symptoms; F41.9 Anxiety disorder, unspecified; F32.9 Major depressive disorder, single episode, unspecified; Z79.82 Long term (current) use of aspirin; Z79.899 Other long term (current) drug therapy; Z88.6 Allergy status to analgesic agent
CPT/HCPCS: 80048; 80076; 80178; 85025; 96361; 96374; 99283; J1170

== ENCOUNTER → 2017-06-09 | Outpatient (CLI) | payer OTHER ==
[~2017-06-09] MED LIST changes: +CIPR-249 PO; +DITR1TAB PO; +IRON65TA PO; +OXYC-517; +OXYC1TAB23 PO
--- NOTE | 2017-06-09 23:17 | REP ---
Clinical: Right ankle pain. Technique: AP and lateral views of the right tibia / fibula. Findings: No acute fracture dislocation. Soft tissue swelling over the lateral ankle identified. No subcutaneous emphysema or radiodense foreign body. No periarticular calcifications. No significant osteoarthritic degenerative changes. Impression: Soft tissue swelling over the lateral malleolus. Signed by Isaac Grullon MD 06/09/2017 11:09 P
--- NOTE | 2017-06-09 23:18 | REP ---
Clinical: Pain. Technique: AP, lateral, bilateral oblique views of the right ankle. Findings: Lateral soft tissue swelling appreciated. No acute fracture dislocation. No subcutaneous emphysema. Ankle mortise grossly intact. No soft tissue calcifications. No significant, overt osteoarthritic degenerative changes noted. Impression: Lateral soft tissue swelling. Signed by Isaac Grullon MD 06/09/2017 11:09 P
== END ==
LOC: M LRY 09:17
PROVIDERS: ATTEND Family Medicine
DX: M25.471 Effusion, right ankle (principal); M25.571 Pain in right ankle and joints of right foot

== ENCOUNTER → 2017-06-17 | Outpatient (REF) | payer OTHER | LOC: M SMT 10:35 | PROVIDERS: ATTEND Urology | DX: N39.0 Urinary tract infection, site not specified (principal) ==

== ENCOUNTER → 2017-06-18 | Day surgery (SDC) | payer OTHER ==
[~2017-06-18] VITALS: Ht 177.8 cm; Wt 113.4 kg
[~2017-06-18] MED LIST changes: +ACETAMINOPHEN TAB 650MG DOSE (2X325MG) PO PRN; +FUROSEMIDE 100 MG/10 ML VIAL (J1940) As Ordered ONE; +LIDOCAINE 2% INJ 100 MG/5 ML SDV (FOR ANES.) As Ordered ONE; +LR 1,000 ML IV ONE; +LR 1,000 ML IV SCH; +MIDAZOLAM INJ 2 MG/2 ML VIAL (J2250) As Ordered ONE; +ONDANSETRON 4MG/2ML VIAL (J2405) As Ordered ONE; +ONDANSETRON 4MG/2ML VIAL (J2405) IV PRN; +PROPOFOL 200 MG/20 ML VIAL As Ordered ONE; +ROCURONIUM BROMIDE 50 MG/5 ML VIAL/SYRINGE As Ordered ONE; +fentaNYL 100 MCG/2 ML INJECTION (J3010) As Ordered ONE; +oxyBUTYnin 5 MG TAB PO PRN
[2017-06-18] MEDS: fentaNYL 100 MCG/2 ML INJECTION (J3010) IV PRN ×4 (09:08→09:28)
[2017-06-18] MEDS: HYDROmorphone HCL 1 MG/ML SYRINGE (J1170) IV PRN ×5 (09:35→10:00)
[2017-06-18] MEDS: PERCOCET 5MG/325MG TAB PO PRN ×2 (10:05→10:20)
[2017-06-18 11:40] VITALS: BP 124/59
--- NOTE | 2017-06-18 12:29 | RO ---
DATE OF PROCEDURE: 06/18/2017 PREPROCEDURE DIAGNOSIS: Benign prostatic hyperplasia. POSTPROCEDURE DIAGNOSIS: Benign prostatic hyperplasia. PROCEDURE: Cystoscopy, Button transurethral electrovaporization of the prostate. SURGEON: Dr. Mejia العراقي BIOMEDICAL ENGINEERING TECHNICIAN: None. ANESTHESIA: General. OPERATIVE INDICATIONS: This is a 57-year-old male who has had benign prostatic hyperplasia which has been refractory to medical therapy. It was recommended that he be brought to the operating room today for cystoscopy to determine whether or not his prostate was causing bladder outlet obstruction and to perform the above listed procedure if that was the case. DESCRIPTION OF PROCEDURE: The patient was brought to the operating room and general anesthesia was induced. Prophylactic antibiotics were infused. He was then placed in the dorsal lithotomy position and prepped and draped in the usual sterile fashion. At this point, the rigid cystoscope was inserted through the urethral meatus and advanced to the bladder. Of note, the prostatic urethra was notable for bilobar prostatic hyperplasia with a high-rising bladder neck which did appear to be obstructing the outflow from the bladder. The bladder was also thoroughly examined and there were no abnormalities within the bladder. Of note , the ureteral orifices were not close to the bladder neck. I also noted the location of the verumontanum. At this point, the cystoscope was traded out for a Button resectoscope and I began vaporizing the hyperplastic tissue beginning circumferentially at the bladder neck then on both lobes of disease. I took down the bladder neck and I kept doing this until there was a clear channel established into the bladder. Throughout the procedure I mad sure not to vaporize too close to the ureteral orifices or distal to the verumontanum. Once there was a clear channel established, hemostasis was obtained using the coagulation current. At this point the Button resectoscope was removed, and an #18-Gab[place] Pat catheter was inserted into the bladder. The balloon was filled with 15 mL of sterile water. Fluid drained clear at the end of the procedure. The catheter was then connected to gravity drainage, and this marked the conclusion of the procedure. The patient was then taken out of the dorsal lithotomy position, awakened from anesthesia and transported to the recovery room in stable condition. Estimated blood loss: 5 mL. Complications: None. Specimens: None. PLAN: The patient will followup in the clinic in approximately 1 week for catheter removal and a voiding trial. [facility]ALTH[facility]uis[facility]
== END | disposition home or self-care (01) ==
LOC: M SDC 06:14
PROVIDERS: ATTEND Urology
DX: N40.1 Benign prostatic hyperplasia with lower urinary tract symptoms (principal); I25.10 Atherosclerotic heart disease of native coronary artery without angina pectoris; I10 Essential (primary) hypertension; I50.9 Heart failure, unspecified; Z79.82 Long term (current) use of aspirin; Z79.899 Other long term (current) drug therapy; F41.9 Anxiety disorder, unspecified; F32.9 Major depressive disorder, single episode, unspecified; F43.10 Post-traumatic stress disorder, unspecified; G47.30 Sleep apnea, unspecified

== ENCOUNTER → 2017-06-29 | Outpatient (REF) | payer OTHER ==
[~2017-06-29] MED LIST changes: -ACETAMINOPHEN TAB 650MG DOSE (2X325MG) PO PRN; -FUROSEMIDE 100 MG/10 ML VIAL (J1940) As Ordered ONE; -LIDOCAINE 2% INJ 100 MG/5 ML SDV (FOR ANES.) As Ordered ONE; -LR 1,000 ML IV ONE; -LR 1,000 ML IV SCH; -MIDAZOLAM INJ 2 MG/2 ML VIAL (J2250) As Ordered ONE; -ONDANSETRON 4MG/2ML VIAL (J2405) As Ordered ONE; -ONDANSETRON 4MG/2ML VIAL (J2405) IV PRN; -PROPOFOL 200 MG/20 ML VIAL As Ordered ONE; -ROCURONIUM BROMIDE 50 MG/5 ML VIAL/SYRINGE As Ordered ONE; -fentaNYL 100 MCG/2 ML INJECTION (J3010) As Ordered ONE; -oxyBUTYnin 5 MG TAB PO PRN
== END ==
LOC: M SMT 15:07
PROVIDERS: ATTEND Nurse Practitioner Women's Health
DX: N40.1 Benign prostatic hyperplasia with lower urinary tract symptoms (principal)

== ENCOUNTER 2017-07-17 04:45 | Emergency (ER) | payer OTHER ==
[~2017-07-17] VITALS: Ht 177.8 cm; Wt 114.0 kg
[~2017-07-17 04:45] MED LIST changes: -CIPR-249 PO; -DITR1TAB PO; -IRON65TA PO; -OXYC-517; -OXYC1TAB23 PO
[2017-07-17] MEDS ORDERED: DITR1TAB PO (05:06)
[2017-07-17] MEDS ORDERED: diphenhydrAMINE INJ 50MG/ML VIAL (J1200) IV STA (05:21)
[2017-07-17] MEDS ORDERED: KETOROLAC 30 MG/ML VIAL (J1885) IV ONE (05:30)
--- NOTE | 2017-07-17 06:00 | REPUSA ---
CLINICAL HISTORY: Abdominal pain. TECHNIQUE: Multiple axial, sagittal and coronal CT images were obtained through the abdomen and pelvi s without administration of oral or IV contrast material. COMMENTS: Unchanged 2.6 cm complex/hyperdense lesion of the right kidney. Unchanged nonobstructing left renal nephrolithiasis with the largest stone in the lower pole measurin g 4 mm. Interval appearance of diffuse thickening of the wall of the bladder. Interval appearance of a moderate large bowel fecal stasis. The liver is of uniform attenuation without mass or defect. There is no intra or extrahepatic biliary ductal dilatation. The spleen is normal. The gallbladder is within normal limits. The pancreas is of normal contour and attenuation characteristics. There is no evidence of adrenal mass. The kidneys are normal in size, shape and configuration. No right renal or ureteral calculi are ident ified. There is no hydroureter or hydronephrosis. There is no evidence for appendicitis. There is no bowel wall thickening. No evidence for small or la rge bowel obstruction. There is no evidence of abdominal ascites or lymphadenopathy. There is no evidence of intrinsic or extrinsic bladder mass. There is no pelvic ascites or lymphadeno aliyah. Images of the lung bases show no evidence of pleural or parenchymal mass. There are no pleural effusi ons. The bony structures are free of lytic or blastic lesions. Multilevel degenerative changes are seen in volving the thoracolumbar spine. Scattered calcifications are seen involving the aorta and major branches compatible with atherosclero sis. IMPRESSION: Interval appearance of diffuse thickening of the bladder suggestive of cystitis. Unchanged nonobstructing left nephrolithiasis. Unchanged complex/hypodense lesion of the right kidney. Interval appearance of a moderate large bowel fecal stasis. Unchanged chronic bilateral perinephric fat thickening. Thank you for your kind referral of this patient.
--- NOTE | 2017-07-17 06:00 | REPUSA ---
CLINICAL HISTORY: Headaches. TECHNIQUE: Multiple axial brain CT scan sections were obtained from base to vertex without contrast a dministration. COMMENTS: Anterior benign chronic falcine calcifications. The study shows normal configuration of sella turcica. There are no intra or extra-axial collections. There is no mass effect or midline shift. There is no evidence of hematoma formation. No hydrocephal us is present. No abnormal calcifications are noted. No significant abnormalities are seen either in the posterior fossa or supratentorial compartment. The sinuses and mastoid air cells are patent. IMPRESSION: No evidence of acute intracranial pathology. Thank you for your kind referral of this patient.
[2017-07-17 06:07] LABS: BASO # 0.1 10^3/uL (0.0-0.2); BASO % 0.8 % (0.0-1.0); EOS # 0.5 10^3/uL (0.0-0.50); EOS % 5.7 % (0.0-3.0); IMMATURE GRANULOCYTE % 0.3 % (0-0); LYMPH # 3.5 10^3/uL (1.5-4.5); LYMPH % 39.9 % (24.0-44.0); MEAN CORPUSCULAR HEMOGLOBIN 28.8 pg (27.0-33.0); MEAN CORPUSCULAR HGB CONC 34.4 g/dl (32.0-36.5); MEAN CORPUSCULAR VOLUME 83.8 fl (80.0-96.0); MONO # 0.7 10^3/uL (0.0-0.8); MONO % 7.5 % (0.0-5.0); NEUTROPHILS % 45.8 % (36.0-66.0); PLATELET COUNT, AUTOMATED 301 10^3/uL (150-450); RED CELL DISTRIBUTION WIDTH 12.4 % (11.5-14.5); WHITE BLOOD COUNT 8.8 10^3/uL (4.0-10.0)
[2017-07-17 06:35] LABS: ANION GAP 3 MEQ/L (8-16); BLOOD UREA NITROGEN 11 MG/DL (7-18); CALCIUM LEVEL 9.3 MG/DL (8.5-10.1); CARBON DIOXIDE LEVEL 33 MEQ/L (21-32); CHLORIDE LEVEL 102 MEQ/L (98-107); CREATININE FOR GFR 1.19 MG/DL (0.70-1.30); GLOMERULAR FILTRATION RATE > 60.0 (>56); GLUCOSE, FASTING 113 MG/DL (70-105); POTASSIUM SERUM 3.7 MEQ/L (3.5-5.1); SODIUM LEVEL 138 MEQ/L (136-145)
[2017-07-17] MEDS ORDERED: CIPR-249 PO (06:56)
[2017-07-17 07:11] VITALS: BP 165/90
[2017-07-22] MEDS ORDERED: OXYC1TAB23 PO (11:44)
[2017-08-06] MEDS ORDERED: OXYC-517 (17:28)
[2017-08-19] MEDS ORDERED: DITR1TAB PO (06:26)
[2017-08-19] MEDS ORDERED: IRON65TA PO (06:26)
[2017-08-19] MEDS ORDERED: METH1TAB40 PO (06:26)
== END 2017-07-17 07:12 | disposition home or self-care (01) ==
LOC: M ED 04:45
DX: G43.909 Migraine, unspecified, not intractable, without status migrainosus (principal); N39.0 Urinary tract infection, site not specified; N20.0 Calculus of kidney; I10 Essential (primary) hypertension; E78.5 Hyperlipidemia, unspecified; F31.9 Bipolar disorder, unspecified; G89.29 Other chronic pain; M54.9 Dorsalgia, unspecified; Z79.82 Long term (current) use of aspirin; Z79.899 Other long term (current) drug therapy; Z88.6 Allergy status to analgesic agent
CPT/HCPCS: 70450; 74176; 80048; 80178; 81001; 85025; 87086; 96374; 96375; 99283; J1200; J1885

== ENCOUNTER 2017-07-26 06:03 | Day surgery (SDC) | payer OTHER ==
[~2017-07-26] VITALS: Ht 177.8 cm; Wt 113.4 kg
[~2017-07-26 06:03] MED LIST changes: +CIPR-249 PO; +DITR1TAB PO; +OXYC1TAB23 PO
[2017-07-26] MEDS ORDERED: LR 1,000 ML IV SCH ×2 (06:15→08:30)
[2017-07-26] MEDS ORDERED: LIDOCAINE 1% MDV 20ML VIAL SQ PRN (06:15)
[2017-07-26] MEDS ORDERED: PROPOFOL 200 MG/20 ML VIAL As Ordered ONE ×3 (07:08→07:50)
[2017-07-26] MEDS ORDERED: ONDANSETRON 4MG/2ML VIAL (J2405) As Ordered ONE (07:08)
[2017-07-26] MEDS ORDERED: MIDAZOLAM INJ 2 MG/2 ML VIAL (J2250) As Ordered ONE (07:09)
[2017-07-26] MEDS ORDERED: fentaNYL 100 MCG/2 ML INJECTION (J3010) As Ordered ONE (07:09)
[2017-07-26] MEDS ORDERED: LIDOCAINE 2% 5ML JELLY UROJET As Ordered ONE (07:37)
[2017-07-26] MEDS ORDERED: HYDROmorphone HCL 1 MG/ML SYRINGE (J1170) As Ordered ONE (08:18)
--- NOTE | 2017-07-26 08:18 | RO ---
DATE OF PROCEDURE: 07/26/2017 PREPROCEDURE DIAGNOSIS: Ureteral obstruction. POSTPROCEDURE DIAGNOSIS: Ureteral obstruction. PROCEDURE: Cystoscopy, transurethral removal of sloughed prostatic urethral tissue. SURGEON: Dr. Mejia العراقي. NATURAL RESOURCE MANAGER: None. ANESTHESIA: MAC. OPERATIVE INDICATIONS: This is a 57-year-old male who underwent a button transurethral electrovaporization of the prostate approximately 1-1/2 months ago. Since his catheter has been removed, he has had persistent obstructive and painful urination. Since his symptoms have not improved, it was recommended that he undergo office cystoscopy to investigate the cause of the symptoms. The patient has a lot of concern about having cystoscopy done without anesthesia, therefore, it was done in the operating room. DESCRIPTION OF PROCEDURE: The patient was brought to the operating room and MAC anesthesia was administered. Prophylactic antibiotic was infused. He was placed in the dorsal lithotomy position and prepped and draped in the usual sterile fashion. There was a cystoscope inserted into the urethral meatus and advanced into the urethra. Of note, there were no urethral strictures. Within the prostatic urethra, it did appear to be open but had a moderate amount of sloughing tissue. No other potential cause of the obstruction was seen. The majority of this sloughing ureteral tissue was then removed using biopsy forceps. Once that was done, the prostate urethra was patent. The bladder was also examined and the bladder was unremarkable. Bilateral ureteral orifices appeared to be unobstructed. At this point, after confirming all the slough tissue had been removed, the bladder was emptied of all fluid. This marked the conclusion of the procedure. The patient was then taken out of the dorsal lithotomy position, awakened from anesthesia and transported to the recovery room in stable condition. ESTIMATED BLOOD LOSS: 0 mL. COMPLICATIONS: None. SPECIMENS: None. PLAN: The patient will followup at the clinic in the next week or two for a postoperative visit. ROSARIO
[2017-07-26] MEDS: HYDROmorphone HCL 1 MG/ML SYRINGE (J1170) IV PRN ×4 (08:20→08:35)
[2017-07-26] MEDS ORDERED: ONDANSETRON 4MG/2ML VIAL (J2405) IV PRN (08:30)
[2017-07-26] MEDS ORDERED: fentaNYL 100 MCG/2 ML INJECTION (J3010) IV PRN (08:30)
[2017-07-26] MEDS ORDERED: ACETAMINOPHEN TAB 650MG DOSE (2X325MG) PO PRN (08:30)
[2017-07-26] MEDS ORDERED: PERCOCET 5MG/325MG TAB PO PRN (08:30)
[2017-07-26] MEDS ORDERED: PERCOCET 5MG/325MG TAB As Ordered ONE (09:32)
[2017-07-26 10:50] VITALS: BP 140/80
[2017-08-06] MEDS ORDERED: OXYC-517 (17:28)
[2017-08-19] MEDS ORDERED: DITR1TAB PO (06:26)
[2017-08-19] MEDS ORDERED: METH1TAB40 PO (06:26)
[2017-08-19] MEDS ORDERED: IRON65TA PO (06:26)
== END 2017-07-26 10:56 | disposition home or self-care (01) ==
LOC: M SDC 06:03
PROVIDERS: ATTEND Urology
DX: N13.5 Crossing vessel and stricture of ureter without hydronephrosis (principal); I25.10 Atherosclerotic heart disease of native coronary artery without angina pectoris; I10 Essential (primary) hypertension; G47.30 Sleep apnea, unspecified; E78.5 Hyperlipidemia, unspecified; F32.9 Major depressive disorder, single episode, unspecified; F41.9 Anxiety disorder, unspecified; F43.10 Post-traumatic stress disorder, unspecified; Z79.82 Long term (current) use of aspirin; Z79.899 Other long term (current) drug therapy

== ENCOUNTER 2017-08-22 21:45 | Emergency (ER) | payer OTHER ==
[~2017-08-22] VITALS: Ht 177.8 cm; Wt 113.6 kg
[~2017-08-22 21:45] MED LIST changes: +IRON65TA PO; +OXYC-517
[2017-08-22 21:46] VITALS: BP 147/81
[2017-08-22] MEDS ORDERED: OXYCODONE/APAP 5MG/325MG(BULK FOR ED) 1 TABLET PO ONE (22:30)
== END 2017-08-22 22:54 | disposition home or self-care (01) ==
LOC: M ED 21:45
DX: S22.31XD Fracture of one rib, right side, subsequent encounter for fracture with routine healing (principal); X58.XXXD Exposure to other specified factors, subsequent encounter; Y92.9 Unspecified place or not applicable; Y93.9 Activity, unspecified; Y99.9 Unspecified external cause status; Z87.442 Personal history of urinary calculi; I10 Essential (primary) hypertension; Z79.82 Long term (current) use of aspirin; Z79.899 Other long term (current) drug therapy; Z88.6 Allergy status to analgesic agent

== ENCOUNTER → 2017-08-24 | Outpatient (CLI) | payer OTHER ==
[2017-08-24 11:31] LABS: ANION GAP 7 MEQ/L (8-16); BLOOD UREA NITROGEN 13 MG/DL (7-18); CALCIUM LEVEL 9.5 MG/DL (8.5-10.1); CARBON DIOXIDE LEVEL 28 MEQ/L (21-32); CHLORIDE LEVEL 105 MEQ/L (98-107); CREATININE FOR GFR 1.06 MG/DL (0.70-1.30); GLOMERULAR FILTRATION RATE > 60.0 (>56); GLUCOSE, FASTING 108 MG/DL (70-105); SODIUM LEVEL 140 MEQ/L (136-145)
== END ==
LOC: M LAB 10:24
PROVIDERS: ATTEND Urology
DX: N28.1 Cyst of kidney, acquired (principal)

== ENCOUNTER → 2017-08-26 | Outpatient (CLI) | payer OTHER ==
[~2017-08-26] MED LIST changes: +ISOVUE-370 76% 100ML VIAL (Q9967) As Ordered ONE
--- NOTE | 2017-08-26 10:00 | REP ---
Clinical: Complex right renal cyst. Comparison: 07/17/2017, 09/10/2016. Technique: Axial precontrast, arterial phase, portal venous phase, and delayed phase images of the abdomen using 100 ml Isovue 370 intravenous contrast material with coronal and sagittal re-formations. Findings: The right kidney demonstrates a lateral mid pole exophytic complex cyst measuring approximately 2.5 cm maximal diameter which remains stable in Hounsfield density units throughout the examination. A second 1 cm simple lower pole right renal cyst is also identified. Both lesions remains stable when compared to 09/10/2016. Incidental note is made of a 1 mm nonobstructing left renal calculus and mild symmetric chronic-appearing perinephric stranding. There is no evidence for hydroureteronephrosis, or significant renal mass lesion. Kidneys demonstrate symmetric appropriate enhancement and excretion to the collecting system. Liver includes 1 cm cyst in the lateral segment left lobe. Spleen, pancreas, gallbladder and bilateral adrenal glands are normal. Visualized portions of the small and large bowel are grossly unremarkable. Visualized abdominal aorta and vasculature appears normal. No ascites. No free air. No obvious adenopathy. Lung bases are clear. Impression: 1. Right kidney includes 2.5 cm complex cyst and 1 cm benign simple cyst. 1 mm nonobstructing left renal calculus identified. No further urinary tract pathology is appreciated. 2. 1 cm hepatic cyst in the lateral segment left lobe unchanged. Signed by Isaac Grullno MD 08/26/2017 09:51 A
== END ==
LOC: M RAD 08:40
PROVIDERS: ATTEND Urology
DX: N28.1 Cyst of kidney, acquired (principal)
CPT/HCPCS: 74170; Q9967

== ENCOUNTER → 2017-10-06 | Outpatient (REF) | payer OTHER | LOC: M SMT 17:10 | DX: N39.0 Urinary tract infection, site not specified (principal) | CPT/HCPCS: 87086 ==

== ENCOUNTER → 2017-10-23 | Outpatient (CLI) | payer OTHER | LOC: M SLEEP 20:00 | DX: G47.33 Obstructive sleep apnea (adult) (pediatric) (principal) | CPT/HCPCS: 95811 ==

== ENCOUNTER → 2017-12-25 | Outpatient (CLI) | payer OTHER ==
[2017-12-25 15:28] LABS: ESTIMATED AVERAGE GLUCOSE 126 MG/DL (60-110)
[2017-12-25 15:30] LABS: HEMOGLOBIN 12.3 g/dl (14.0-18.0); MEAN CORPUSCULAR HEMOGLOBIN 28.9 pg (27.0-33.0); MEAN CORPUSCULAR HGB CONC 34.2 g/dl (32.0-36.5); MEAN CORPUSCULAR VOLUME 84.7 fl (80.0-96.0); PLATELET COUNT, AUTOMATED 299 10^3/uL (150-450); RED BLOOD COUNT 4.25 10^6/uL (4.30-6.10); RED CELL DISTRIBUTION WIDTH 12.4 % (11.5-14.5); WHITE BLOOD COUNT 6.2 10^3/uL (4.0-10.0)
[2017-12-25 15:35] LABS: ALBUMIN 4.1 GM/DL (3.2-5.2); ALBUMIN/GLOBULIN RATIO 1.14 (1.00-1.93); ALKALINE PHOSPHATASE 70 U/L (45-117); ALT/SGPT 22 U/L (12-78); ANION GAP 6 MEQ/L (8-16); AST/SGOT 14 U/L (7-37); BILIRUBIN,TOTAL 0.3 MG/DL (0.2-1.0); BLOOD UREA NITROGEN 16 MG/DL (7-18); CALCIUM LEVEL 8.9 MG/DL (8.5-10.1); CARBON DIOXIDE LEVEL 30 MEQ/L (21-32); CHLORIDE LEVEL 106 MEQ/L (98-107); CHOLESTEROL LEVEL 139 MG/DL (<200); CHOLESTEROL RISK RATIO 2.725 (<5); CREATININE FOR GFR 1.48 MG/DL (0.70-1.30); FERRITIN 24 NG/ML (26-388); GLOMERULAR FILTRATION RATE > 60.0 (>56); GLUCOSE, FASTING 107 MG/DL (70-100); HDL CHOLESTEROL 51 MG/DL (>40); LDL CHOLESTEROL 70.4 MG/DL (<100); NON-HDL-C 88 MG/DL; POTASSIUM SERUM 4.5 MEQ/L (3.5-5.1); SODIUM LEVEL 142 MEQ/L (136-145); TOTAL PROTEIN 7.7 GM/DL (6.4-8.2); TRIGLYCERIDES LEVEL 88 MG/DL (<150)
== END ==
LOC: M LAB 14:23
DX: I10 Essential (primary) hypertension (principal); R73.01 Impaired fasting glucose; E78.5 Hyperlipidemia, unspecified
CPT/HCPCS: 80053

== ENCOUNTER 2018-01-05 16:32 | Emergency (ER) | payer OTHER ==
[2018-01-05 17:37] LABS: BASO # 0.1 10^3/uL (0.0-0.2); BASO % 0.8 % (0.0-1.0); EOS # 0.6 10^3/uL (0.0-0.50); EOS % 7.3 % (0.0-3.0); HEMATOCRIT 35.2 % (42.0-52.0); IMMATURE GRANULOCYTE % 0.1 % (0-3.0); LYMPH # 3.5 10^3/uL (1.5-4.5); LYMPH % 44.9 % (24.0-44.0); MEAN CORPUSCULAR HGB CONC 34.1 g/dl (32.0-36.5); MONO # 0.6 10^3/uL (0.0-0.8); MONO % 8.1 % (0.0-5.0); NEUTROPHILS % 38.8 % (36.0-66.0); PLATELET COUNT, AUTOMATED 274 10^3/uL (150-450); RED BLOOD COUNT 4.14 10^6/uL (4.30-6.10); RED CELL DISTRIBUTION WIDTH 12.2 % (11.5-14.5); WHITE BLOOD COUNT 7.8 10^3/uL (4.0-10.0)
[2018-01-05 18:00] LABS: NT-PRO BNP 64 PG/ML (<125)
[2018-01-05 18:00] LABS: ALBUMIN 3.8 GM/DL (3.2-5.2); ALBUMIN/GLOBULIN RATIO 1.06 (1.00-1.93); ALKALINE PHOSPHATASE 66 U/L (45-117); ALT/SGPT 22 U/L (12-78); ANION GAP 5 MEQ/L (8-16); AST/SGOT 13 U/L (7-37); BILIRUBIN,DIRECT 0.1 MG/DL (0.0-0.2); BILIRUBIN,TOTAL 0.3 MG/DL (0.2-1.0); BLOOD UREA NITROGEN 16 MG/DL (7-18); CALCIUM LEVEL 8.6 MG/DL (8.5-10.1); CARBON DIOXIDE LEVEL 31 MEQ/L (21-32); CHLORIDE LEVEL 104 MEQ/L (98-107); CPK CREATINE PHOSPHOKINASE 243 U/L (39-308); CREATININE FOR GFR 1.21 MG/DL (0.70-1.30); GLOMERULAR FILTRATION RATE > 60.0 (>56); GLUCOSE, FASTING 91 MG/DL (70-100); SODIUM LEVEL 140 MEQ/L (136-145); TOTAL PROTEIN 7.4 GM/DL (6.4-8.2); TROPONIN I < 0.02 NG/ML (< 0.10)
[2018-01-05 18:01] LABS: CK-MB VALUE MASS 1.3 NG/ML (<3.6); MB/CK RELATIVE INDEX 0.53 (< OR =4)
[2018-01-05] MEDS ORDERED: ISOVUE-370 76% 100ML VIAL (Q9967) As Ordered (18:20)
[2018-01-05] MEDS: ASPIRIN 81 MG CHEW TABLET PO (18:26)
[2018-01-05] MEDS: MORPHINE 2 MG/ML 1ML SYRINGE (J2270) IV (18:50)
[2018-01-05 22:43] LABS: CPK CREATINE PHOSPHOKINASE 221 U/L (39-308); TROPONIN I < 0.02 NG/ML (< 0.10)
[2018-01-05 22:44] LABS: MB/CK RELATIVE INDEX 0.45 (< OR =4)
== END 2018-01-06 00:11 | disposition home or self-care (01) ==
LOC: M ED 01-06 00:11
DX: R07.9 Chest pain, unspecified (principal); R73.03 Prediabetes; I10 Essential (primary) hypertension; I66.9 Occlusion and stenosis of unspecified cerebral artery; G47.30 Sleep apnea, unspecified; Z79.899 Other long term (current) drug therapy; Z79.82 Long term (current) use of aspirin; Z98.890 Other specified postprocedural states; Z86.79 Personal history of other diseases of the circulatory system; Z82.49 Family history of ischemic heart disease and other diseases of the circulatory system; Z87.448 Personal history of other diseases of urinary system
CPT/HCPCS: Q9967

== ENCOUNTER → 2018-01-25 | Outpatient (REF) | payer OTHER ==
[2018-01-25 20:37] LABS: APPEARANCE, URINE CLEAR (CLEAR); BACTERIA, URINE AUTO NEGATIVE (NEGATIVE); BILIRUBIN, URINE AUTO NEGATIVE (NEGATIVE); BLOOD, URINE BLOOD NEGATIVE (NEGATIVE); COLOR, URINE YELLOW (YELLOW); GLUCOSE, URINE (UA) AUTO NEGATIVE (NEGATIVE); KETONE, URINE AUTO NEGATIVE (NEGATIVE); LEUKOCYTE ESTERASE, URINE AUTO NEGATIVE (NEGATIVE); MUCUS, URINE SMALL (NEGATIVE); NITRITE, URINE AUTO NEGATIVE (NEGATIVE); PROTEIN, URINE AUTO NEGATIVE (NEGATIVE); RBC, URINE AUTO 1 /HPF (0-3); SPECIFIC GRAVITY URINE AUTO 1.021 (1.002-1.035); SQUAMOUS EPITHELIAL CELL UR AU 0 /HPF (0-6); WBC, URINE AUTO 0 /HPF (0-3)
== END ==
LOC: M SMT 17:00
DX: N40.0 Benign prostatic hyperplasia without lower urinary tract symptoms (principal)

== ENCOUNTER → 2018-02-08 | Outpatient (CLI) | payer OTHER | LOC: M RAD 17:39 | DX: N28.1 Cyst of kidney, acquired (principal) | CPT/HCPCS: 76775 ==

== ENCOUNTER → 2018-03-31 | Outpatient (REF) | payer OTHER | LOC: M SFHCLERA 14:12 | DX: I10 Essential (primary) hypertension (principal) ==

== ENCOUNTER → 2018-06-27 | Outpatient (REF) | payer OTHER | LOC: M SFHCLERA 16:00 | DX: R53.83 Other fatigue (principal) | CPT/HCPCS: 84443 ==

== ENCOUNTER → 2018-06-27 | Outpatient (CLI) | payer OTHER ==
[2018-06-27 10:54] LABS: BASO # 0.1 10^3/uL (0.0-0.2); EOS # 0.6 10^3/uL (0.0-0.50); EOS % 8.8 % (0.0-3.0); HEMATOCRIT 37.4 % (42.0-52.0); HEMOGLOBIN 12.8 g/dl (13.5-17.5); IMMATURE GRANULOCYTE % 0.1 % (0-3.0); LYMPH # 3.5 10^3/uL (1.5-4.5); LYMPH % 49.1 % (24.0-44.0); MEAN CORPUSCULAR HEMOGLOBIN 29.7 pg (27.0-33.0); MEAN CORPUSCULAR HGB CONC 34.2 g/dl (32.0-36.5); MEAN CORPUSCULAR VOLUME 86.8 fl (80.0-96.0); MONO # 0.6 10^3/uL (0.0-0.8); MONO % 7.9 % (0.0-5.0); NEUTROPHILS # 2.3 10^3/uL (1.8-7.7); NEUTROPHILS % 33.1 % (36.0-66.0); PLATELET COUNT, AUTOMATED 262 10^3/uL (150-450); RED BLOOD COUNT 4.31 10^6/uL (4.30-6.10); WHITE BLOOD COUNT 7.1 10^3/uL (4.0-10.0)
[2018-06-27 11:21] LABS: ANION GAP 7 MEQ/L (8-16); BLOOD UREA NITROGEN 18 MG/DL (7-18); CALCIUM LEVEL 8.8 MG/DL (8.5-10.1); CARBON DIOXIDE LEVEL 28 MEQ/L (21-32); CHLORIDE LEVEL 105 MEQ/L (98-107); CREATININE FOR GFR 1.25 MG/DL (0.70-1.30); GLOMERULAR FILTRATION RATE > 60.0 (>56); GLUCOSE, FASTING 94 MG/DL (70-100); POTASSIUM SERUM 4.3 MEQ/L (3.5-5.1); SODIUM LEVEL 140 MEQ/L (136-145)
== END ==
LOC: M LAB 09:13
DX: I10 Essential (primary) hypertension (principal)
CPT/HCPCS: 80048

== ENCOUNTER 2018-08-22 00:08 | Emergency (ER) | payer OTHER | END 2018-08-22 01:34 | disposition home or self-care (01) | LOC: M ED 00:08 | DX: M79.662 Pain in left lower leg (principal); M79.89 Other specified soft tissue disorders; I87.2 Venous insufficiency (chronic) (peripheral); I10 Essential (primary) hypertension; E87.5 Hyperkalemia; R51 Headache; N28.89 Other specified disorders of kidney and ureter; Z79.82 Long term (current) use of aspirin; Z79.899 Other long term (current) drug therapy; Z88.6 Allergy status to analgesic agent | CPT/HCPCS: 93971 ==

== ENCOUNTER → 2018-09-29 | Outpatient (REF) | payer OTHER ==
[~2018-09-29] MED LIST changes: -AMLO5TAB2 PO; +AMLO5TAB4 PO; +BACL10TA2; +DILT240C14 PO; -DILT240C75 PO; -GABA-282 PO; +GABA-843 PO; -ISOVUE-370 76% 100ML VIAL (Q9967) As Ordered ONE; +TRAZ-160 PO; -TRAZ50TA11 PO; -ZONE25CA5 PO; +ZONE25CA6 PO
[2018-09-29 20:08] LABS: BASO # 0.1 10^3/uL (0.0-0.2); EOS # 0.6 10^3/uL (0.0-0.50); EOS % 8.8 % (0.0-3.0); HEMATOCRIT 38.3 % (42.0-52.0); HEMOGLOBIN 13.1 g/dl (13.5-17.5); LYMPH # 3.4 10^3/uL (1.5-4.5); LYMPH % 50.1 % (24.0-44.0); MEAN CORPUSCULAR HEMOGLOBIN 29.6 pg (27.0-33.0); MEAN CORPUSCULAR HGB CONC 34.2 g/dl (32.0-36.5); MEAN CORPUSCULAR VOLUME 86.7 fl (80.0-96.0); MONO # 0.5 10^3/uL (0.0-0.8); MONO % 7.6 % (0.0-5.0); NEUTROPHILS # 2.2 10^3/uL (1.8-7.7); NEUTROPHILS % 32.4 % (36.0-66.0); PLATELET COUNT, AUTOMATED 291 10^3/uL (150-450); RED BLOOD COUNT 4.42 10^6/uL (4.30-6.10); WHITE BLOOD COUNT 6.8 10^3/uL (4.0-10.0)
[2018-09-29 20:27] LABS: HEMOGLOBIN A1c 6.3 %
== END ==
LOC: M SFHCLERA 16:18
PROVIDERS: ATTEND Family Medicine
DX: R73.03 Prediabetes (principal); D50.9 Iron deficiency anemia, unspecified

== ENCOUNTER → 2018-10-17 | Outpatient (REF) | payer OTHER ==
[~2018-10-17] MED LIST changes: -AMLO5TAB4 PO; +AMLO5TAB6 PO; -GABA600T PO; +GABA600T4 PO; +LISI40TA PO
== END ==
LOC: M SFHCLERA 13:58
PROVIDERS: ATTEND Family Medicine
DX: Z53.9 Procedure and treatment not carried out, unspecified reason (principal); D50.9 Iron deficiency anemia, unspecified; R53.83 Other fatigue

== ENCOUNTER → 2018-10-20 | Outpatient (CLI) | payer OTHER ==
[2018-10-20 17:46] LABS: FREE T4 0.9 NG/DL (0.76-1.46); PERCENT SATURATION 16.3 % (19.7-50.0); THYROID STIMULATING HORMONE 1.25 uIU/ML (0.358-3.740)
== END ==
LOC: M LAB 16:00
PROVIDERS: ATTEND Family Medicine
DX: D50.9 Iron deficiency anemia, unspecified (principal); R53.83 Other fatigue

== ENCOUNTER → 2018-11-22 | Outpatient (CLI) | payer OTHER ==
[~2018-11-22] MED LIST changes: -BACL10TA2; +BACL10TA2 PO; +FERR325T3 PO; +GLUCAGON FOR INJ 1 MG VIAL (J1610) As Ordered ONE; +ISOVUE-370 76% 100ML VIAL (Q9967) As Ordered ONE; -OXYC-517; +VoLumen 0.1% SUSPENSION 450ML BOTTLE As Ordered ONE
--- NOTE | 2018-11-22 14:22 | REP ---
CT ENTEROGRAPHY ABDOMEN AND PELVIS WITH ORAL AND IV CONTRAST: TECHNIQUE: Axial contrast enhanced images from the lung bases to the pubic symphysis using 100 mL Isovue 370 intravenous contrast material with multiplanar reformations. VoLumen was administered orally as per hospital protocol. Visualized lung bases are clear. In the left lobe of the liver there is again a cyst noted approximately 1 cm in diameter. Another tiny cyst is seen in the left lobe more laterally and superiorly. Gallbladder is not optimally distended. I see no biliary dilatation. The spleen, adrenals and pancreas are unremarkable. There is a dominant cyst in the lower pole of the right kidney 2.5 cm in diameter unchanged since the prior CT of 08/26/2017. Smaller cyst is seen more inferiorly and medially in the lower pole of the right kidney. There is no hydronephrosis bilaterally. There is no abdominal aortic aneurysm. There is no adenopathy. There is no free air or free fluid. No bowel wall thickening or inflammation is seen. There do appear to be few sigmoid diverticula. There is no acute diverticulitis. Mesenteric region demonstrates no significant abnormality. No pelvic mass is seen. Urinary bladder is mildly to moderately distended and appears unremarkable. IMPRESSION: Hepatic and right renal cysts as discussed above. No definite bowel abnormality identified. Few sigmoid diverticula are present without acute inflammation. Electronically Signed by George Crooks MD 11/22/2018 05:29 P
== END ==
LOC: M RAD 09:14
PROVIDERS: ATTEND Physician Assistant Medical
DX: D50.9 Iron deficiency anemia, unspecified (principal); R10.9 Unspecified abdominal pain
CPT/HCPCS: 74177; J1610; Q9967

== ENCOUNTER 2018-12-13 10:48 | Day surgery (SDC) | payer OTHER ==
[~2018-12-13] VITALS: Ht 177.8 cm; Wt 112.5 kg
[~2018-12-13 10:48] MED LIST changes: -GLUCAGON FOR INJ 1 MG VIAL (J1610) As Ordered ONE; -ISOVUE-370 76% 100ML VIAL (Q9967) As Ordered ONE; +PROPOFOL 500 MG/50 ML VIAL As Ordered ONE; -VoLumen 0.1% SUSPENSION 450ML BOTTLE As Ordered ONE; +fentaNYL 100 MCG/2 ML INJECTION (J3010) As Ordered ONE
[2018-12-13] MEDS ORDERED: LIDOCAINE 2% INJ 100 MG/5 ML SDV (FOR ANES.) As Ordered ONE (11:13)
[2018-12-13] MEDS ORDERED: NS 1,000 ML IV ONE (11:30)
--- NOTE | 2018-12-13 12:03 | ROOR ---
Patient Name: Edin Machado Procedure Date: 12/13/2018 11:49 AM Date of : 1960 Age: 58 Room: [facility] Gender: Male Note Status: Finalized Procedure: Upper GI endoscopy Indications: Iron deficiency anemia Providers: John MARIE MD Referring MD: Rebecca BARRAGAN MD Requesting Provider: Medicines: Monitored Anesthesia Care Complications: No immediate complications. Procedure: Pre-Anesthesia Assessment: - The heart rate, respiratory rate, oxygen saturations, blood pressure, adequacy of pulmonary ventilation, and response to care were monitored throughout the procedure. The Endoscope was introduced through the mouth, and advanced to the third part of duodenum. The upper GI endoscopy was accomplished without difficulty. The patient tolerated the procedure well. Findings: Minimal inflammation was found in the gastric antrum. Biopsies were taken with a cold forceps for Helicobacter pylori testing. The exam was otherwise without abnormality. Biopsies for histology were taken with a cold forceps in the second portion of the duodenum and in the third portion of the duodenum for evaluation of celiac disease. Impression: - Minimal gastritis. Biopsied. - The examination was otherwise normal. - Biopsies were taken with a cold forceps for evaluation of celiac disease. Recommendation: - Telephone endoscopist for pathology results in 2 weeks. John Marie MD John MARIE MD 12/13/2018 12:03:22 PM This report has been signed electronically. Number of Addenda: 0 Note Initiated On: 12/13/2018 11:49 AM Estimated Blood Loss: Estimated blood loss: none.
--- NOTE | 2018-12-13 12:19 | ROOR ---
Patient Name: Edin Machado Procedure Date: 12/13/2018 11:50 AM Date of : 1960 Age: 58 Room: [facility] Gender: Male Note Status: Finalized Procedure: Colonoscopy Indications: Iron deficiency anemia Providers: John MARIE MD Referring MD: Rebecca BARRAGAN MD Requesting Provider: Medicines: Monitored Anesthesia Care Complications: No immediate complications. Procedure: Pre-Anesthesia Assessment: - The heart rate, respiratory rate, oxygen saturations, blood pressure, adequacy of pulmonary ventilation, and response to care were monitored throughout the procedure. The Colonoscope was introduced through the anus and advanced to 8 cm into the ileum. The colonoscopy was performed without difficulty. The patient tolerated the procedure well. The quality of the bowel preparation was good. Findings: The perianal and digital rectal examinations were normal. Mild sigmoid diverticulosis and modetrate internal hemorrhoids. The exam was otherwise without abnormality. Impression: - Mild sigmoid diverticulosis and moderate internal hemorrhoids. - The examination was otherwise normal. - No specimens collected. Recommendation: - Continue present medications. John Marie MD John MARIE MD 12/13/2018 12:19:12 PM This report has been signed electronically. Number of Addenda: 0 Note Initiated On: 12/13/2018 11:50 AM Estimated Blood Loss: Estimated blood loss: none.
[2018-12-13 12:50] VITALS: BP 115/80
== END 2018-12-13 13:11 | disposition home or self-care (01) ==
LOC: M OPP 10:48
PROVIDERS: ATTEND Internal Medicine Gastroenterology
DX: D50.9 Iron deficiency anemia, unspecified (principal); K62.5 Hemorrhage of anus and rectum; R10.9 Unspecified abdominal pain; K57.30 Diverticulosis of large intestine without perforation or abscess without bleeding; K64.8 Other hemorrhoids; K29.70 Gastritis, unspecified, without bleeding; G47.33 Obstructive sleep apnea (adult) (pediatric); R12 Heartburn; I10 Essential (primary) hypertension; G43.909 Migraine, unspecified, not intractable, without status migrainosus; F43.10 Post-traumatic stress disorder, unspecified; F32.9 Major depressive disorder, single episode, unspecified; F41.9 Anxiety disorder, unspecified; M19.90 Unspecified osteoarthritis, unspecified site; Z88.6 Allergy status to analgesic agent; Z79.82 Long term (current) use of aspirin; Z79.899 Other long term (current) drug therapy
CPT/HCPCS: 43239; 45378; 88305; J3010

== ENCOUNTER → 2019-02-06 | Outpatient (CLI) | payer OTHER ==
[~2019-02-06] MED LIST changes: -DILT240C14 PO; +DILT240C82 PO; +LISI40TA52 PO; -LISI40TAB PO; -PROPOFOL 500 MG/50 ML VIAL As Ordered ONE; +SERT-141 PO; -SERT25TA PO; +SERT25TA85 PO; -SERT50TA PO; -fentaNYL 100 MCG/2 ML INJECTION (J3010) As Ordered ONE
[2019-02-07 14:01] LABS: HEMATOCRIT 37.7 % (42.0-52.0); HEMOGLOBIN 12.1 g/dl (13.5-17.5); MEAN CORPUSCULAR HGB CONC 32.1 g/dl (32.0-36.5); MEAN CORPUSCULAR VOLUME 90.4 fl (80.0-96.0); PLATELET COUNT, AUTOMATED 293 10^3/uL (150-450); RED BLOOD COUNT 4.17 10^6/uL (4.30-6.10); WHITE BLOOD COUNT 7.5 10^3/uL (4.0-10.0)
== END ==
LOC: M LAB 16:01
PROVIDERS: ATTEND Physician Assistant Medical
DX: D50.9 Iron deficiency anemia, unspecified (principal)

== ENCOUNTER → 2019-05-04 | Outpatient (REF) | payer OTHER ==
[~2019-05-04] MED LIST changes: -TRAZ-160 PO; +TRAZ-252 PO
[2019-05-04 20:15] LABS: BASO # 0.1 10^3/uL (0.0-0.2); BASO % 0.9 % (0.0-1.0); EOS # 0.6 10^3/uL (0.0-0.50); EOS % 7.1 % (0.0-3.0); HEMATOCRIT 37.8 % (42.0-52.0); HEMOGLOBIN 13.2 g/dl (13.5-17.5); LYMPH # 2.9 10^3/uL (1.5-4.5); LYMPH % 35.5 % (24.0-44.0); MEAN CORPUSCULAR HEMOGLOBIN 29.9 pg (27.0-33.0); MEAN CORPUSCULAR HGB CONC 34.9 g/dl (32.0-36.5); MEAN CORPUSCULAR VOLUME 85.5 fl (80.0-96.0); MONO # 0.6 10^3/uL (0.0-0.8); MONO % 6.9 % (0.0-5.0); NEUTROPHILS % 49.4 % (36.0-66.0); PLATELET COUNT, AUTOMATED 296 10^3/uL (150-450); RED BLOOD COUNT 4.42 10^6/uL (4.30-6.10); WHITE BLOOD COUNT 8.1 10^3/uL (4.0-10.0)
[2019-05-04 20:29] LABS: ALBUMIN 4.1 GM/DL (3.2-5.2); ALT/SGPT 26 U/L (12-78); BILIRUBIN,TOTAL 0.3 MG/DL (0.2-1.0); BLOOD UREA NITROGEN 13 MG/DL (7-18); CALCIUM LEVEL 9.3 MG/DL (8.5-10.1); CARBON DIOXIDE LEVEL 28 MEQ/L (21-32); CHLORIDE LEVEL 105 MEQ/L (98-107); CREATININE FOR GFR 1.26 MG/DL (0.70-1.30); FREE T4 0.86 NG/DL (0.76-1.46); GLOMERULAR FILTRATION RATE > 60.0 (>56); GLUCOSE, FASTING 126 MG/DL (70-100); SODIUM LEVEL 139 MEQ/L (136-145); THYROID STIMULATING HORMONE 0.809 uIU/ML (0.358-3.740); TOTAL PROTEIN 8.2 GM/DL (6.4-8.2)
[2019-05-04 20:49] LABS: HEMOGLOBIN A1c 6.3 %
== END ==
LOC: M SFHCLERA 16:11
PROVIDERS: ATTEND Family Medicine
DX: R73.03 Prediabetes (principal); R53.83 Other fatigue

== ENCOUNTER → 2019-08-31 | Outpatient (CLI) | payer OTHER ==
--- NOTE | 2019-08-31 16:59 | REP ---
Four views right foot: 08/31/2019. Indication: Right foot pain. Comparison: None. Findings: There is no acute fracture, subluxation or dislocation. Osteoarthritic changes are present involving the first MTP joint with a chronic fracture of the proximal first phalanx. There is considerable joint space narrowing and sclerosis. No additional significant arthritides are detected. No lytic or blastic lesions are present. Impression: Osteoarthritic first metatarsal-phalangeal joint sequelae, Electronically Signed by Devonte Matamoros DO 08/31/2019 04:50 P
== END ==
LOC: M RAD 16:18
PROVIDERS: ATTEND Family Medicine
DX: M19.071 Primary osteoarthritis, right ankle and foot (principal)

== ENCOUNTER → 2019-08-31 | Outpatient (CLI) | payer OTHER | LOC: M LRY 12:09 | PROVIDERS: ATTEND Family Medicine | DX: Z53.9 Procedure and treatment not carried out, unspecified reason (principal) ==

== ENCOUNTER 2019-09-10 13:35 | Emergency (ER) | payer OTHER ==
[~2019-09-10] VITALS: Ht 177.8 cm; Wt 110.8 kg
[2019-09-10 13:35] VITALS: BP 167/74
[~2019-09-10 13:35] MED LIST changes: -SIMV40TA2 PO; +SIMV40TA20 PO
[2019-09-10] MEDS ORDERED: DULO1CAP6 (13:42)
[2019-09-10] MEDS ORDERED: CYCLOBENZAPRINE 10 MG TAB PO ONE (14:30)
== END 2019-09-10 15:00 | disposition left against medical advice (07) ==
LOC: M ED 13:35
DX: Z53.21 Procedure and treatment not carried out due to patient leaving prior to being seen by health care provider (principal)

== ENCOUNTER → 2019-12-02 | Outpatient (CLI) | payer OTHER ==
[~2019-12-02] MED LIST changes: -BUPR300T34 PO; +BUPR300T92 PO; +DULO1CAP6; -LORA0.5T11 PO; +LORA0.5T5 PO
--- NOTE | 2019-12-02 16:38 | REPVR ---
PROCEDURE INFORMATION: Exam: MR Lumbar Spine Without Contrast. Exam date and time: 12/02/2019 2:56 PM Age: 59 years old Clinical indication: Low back pain; Additional info: Spondylosis TECHNIQUE: Imaging protocol: Multiplanar magnetic resonance images of the lumbar spine without intravenous contrast. COMPARISON: CT Spine, lumbar w/o contrast 02/21/2017 12:52 AM FINDINGS: Vertebral body heights are intact. Alignment is maintained. No pars defect is identified. The conus is unremarkable in appearance, with its tip at the T12-L1 level. There are mild degrees of disc desiccation indicating intervertebral disc degeneration. The visualized abdominal structures appear unremarkable. L1-L2: No significant disc displacement. L2-L3: Small bulge combining with facet arthrosis to lead to very mild bilateral neural foraminal narrowing without significant spinal stenosis. L3-L4: Small bulge combining with facet arthrosis to lead to mild right and very mild left neural foraminal narrowing without significant spinal stenosis. L4-L5: Disc osteophyte complex combining with facet arthrosis to lead to mild right and mild to moderate left neural foraminal narrowing with moderate right and mild left lateral recess narrowing, without significant central canal stenosis. Small fluid is present in the left facet joint. L5-S1: Disc osteophyte complex with a broad-based left paracentral protrusion combining with facet arthrosis click to lead to mild right and moderate left neural foraminal narrowing with very mild right and mild left lateral recess narrowing, without significant central canal stenosis. If surgery is considered, recommend level confirmation. IMPRESSION: Multilevel disc desiccation indicating intervertebral disk degeneration with disc displacements as described. Electronically signed by: Marcus Kinney On 12/02/2019 16:38:17 PM
== END ==
LOC: M RAD 14:41
PROVIDERS: ATTEND Family Medicine
DX: M47.816 Spondylosis without myelopathy or radiculopathy, lumbar region (principal); M51.26 Other intervertebral disc displacement, lumbar region; M25.78 Osteophyte, vertebrae

== ENCOUNTER → 2020-04-11 | Outpatient (CLI) | payer OTHER ==
[~2020-04-11] MED LIST changes: +OXYC-1 PO; -OXYC15TA76 PO
--- NOTE | 2020-04-11 16:08 | REPPI ---
Clinical: Wheezing . Comparison: 01/05/2018 the . Technique: PA and lateral. Findings: The mediastinum and cardiac silhouette are normal. The lung parker are clear and without acute consolidation, effusion, or pneumothorax. The skeletal structures are intact and normal. Impression: 1. No acute cardiopulmonary process. Electronically Signed by Isaac Grullon MD 04/11/2020 03:59 P
== END ==
LOC: M PLAIMG 15:48
PROVIDERS: ATTEND Family Medicine
DX: R06.2 Wheezing (principal)

== ENCOUNTER → 2020-04-15 | Outpatient (CLI) | payer OTHER ==
[2020-04-15 13:13] LABS: ALBUMIN 4.2 GM/DL (3.2-5.2); ALT/SGPT 33 U/L (12-78); BILIRUBIN,TOTAL 0.4 MG/DL (0.2-1.0); BLOOD UREA NITROGEN 12 MG/DL (7-18); CALCIUM LEVEL 9.2 MG/DL (8.5-10.1); CARBON DIOXIDE LEVEL 29 MEQ/L (21-32); CHLORIDE LEVEL 108 MEQ/L (98-107); CHOLESTEROL LEVEL 179 MG/DL (<200); CHOLESTEROL RISK RATIO 2.452 (<5); CREATININE FOR GFR 1.13 MG/DL (0.70-1.30); GLOMERULAR FILTRATION RATE > 60.0 (>56); GLUCOSE, FASTING 112 MG/DL (70-100); HDL CHOLESTEROL 73 MG/DL (>40); LDL CHOLESTEROL 94 MG/DL (<100); NON-HDL-C 106 MG/DL; POTASSIUM SERUM 4.1 MEQ/L (3.5-5.1); SODIUM LEVEL 141 MEQ/L (136-145); TOTAL PROTEIN 8.4 GM/DL (6.4-8.2); TRIGLYCERIDES LEVEL 62 MG/DL (<150)
[2020-04-15 19:12] LABS: HEMOGLOBIN A1c 6.1 %
== END ==
LOC: M LAB 11:43
PROVIDERS: ATTEND Family Medicine
DX: I10 Essential (primary) hypertension (principal); R73.03 Prediabetes; E78.5 Hyperlipidemia, unspecified

== ENCOUNTER → 2020-04-24 | Outpatient (CLI) | payer OTHER ==
[~2020-04-24] MED LIST changes: +ALBU8.5H INH; +AMLO1TAB24 PO; -AMLO5TAB6 PO; +BRIN10TA4 PO; +FLUTISP INH; -HYDR-2807 PO; +HYDR-4433 PO; +HYDR-643 PO; +OXYB10TA23 PO
--- NOTE | 2020-04-24 14:37 | PFTRPT ---
Height: 70.00 Inches Weight: 250.00 Lbs BSA: 2.29 Diagnosis: R06.2 DATE OF PROCEDURE: 04/24/2020 ORDERED BY: Dr. Rebecca Rios Spirometry: Pre and post bronchodilator study of excellent technical quality. Forced vital capacity reduced. FEV1 in proportion. Obstructive index is, therefore, normal. Flow Volume Loop: Expiratory limb of the flow volume loop does suggest at least some degree of nonspecific flow rate limitation. Very favorable bronchodilator response is identified. Lung Volumes: Total lung capacity elevated. Residual volume does suggest a degree of air trapping. Diffusing Capacity: Diffusing capacity is normal. Hemoglobin: Hemoglobin acceptable at 14.7. Airway Mechanics: Airway resistance and conductance are normal. IMPRESSION: Reversible nonspecific ventilatory defect with underlying air trapping. Please correlate clinically. MTDD
== END ==
LOC: M CARPUL 13:41
PROVIDERS: ATTEND Family Medicine
DX: R06.2 Wheezing (principal)

== ENCOUNTER 2020-07-26 00:03 | Emergency (ER) | payer OTHER ==
[~2020-07-26 00:03] MED LIST changes: -ALBU8.5H INH; -BRIN10TA4 PO; -FLUTISP INH; -HYDR-643 PO; -OXYB10TA23 PO
[2020-07-26] MEDS ORDERED: HYDR-3719 PO (00:19)
[2020-07-26] MEDS ORDERED: BRIN10TA4 PO (00:25)
[2020-07-26] MEDS ORDERED: ALBU8.5H INH (00:25)
[2020-07-26] MEDS ORDERED: OXYB10TA23 PO (00:25)
[2020-07-26] MEDS ORDERED: FLUTISP INH (00:25)
[2020-07-26] MEDS ORDERED: HYDR-643 PO (00:25)
--- NOTE | 2020-07-26 01:02 | REPVR ---
PROCEDURE INFORMATION: Exam: XR Chest, 1 View Exam date and time: 07/26/2020 12:46 AM Age: 60 years old Clinical indication: Other: Chest pain TECHNIQUE: Imaging protocol: XR of the chest Views: 1 view. COMPARISON: CR CHEST 2 VIEWS 04/11/2020 4:00 PM FINDINGS: Lungs: There is decreased inflation of the lungs. There are no interval infiltrates. Pleural space: Unremarkable. No pleural effusion. No pneumothorax. Heart/Mediastinum: The heart remains unchanged. Bones/joints: Unremarkable. Soft tissues: There are moderately generous overlying soft tissues. Other findings: Slightly increased lordotic projection. IMPRESSION: Stable chest since 04/11/2020. No acute interval process is identified. Electronically signed by: Bandar Ellison On 07/26/2020 01:01:50 AM
[2020-07-26] MEDS ORDERED: ASPIRIN 81 MG CHEW TABLET PO ONE (01:30)
[2020-07-26] MEDS ORDERED: NITROGLYCERIN 0.4 MG SUBL TABLET SL PRN (01:30)
[2020-07-26 01:42] LABS: BASO # 0.1 10^3/uL (0.0-0.2); BASO % 0.8 % (0.0-1.0); EOS # 0.7 10^3/uL (0.0-0.5); EOS % 9.6 % (0.0-3.0); HEMATOCRIT 35.8 % (42.0-52.0); HEMOGLOBIN 12.1 g/dl (13.5-17.5); LYMPH # 3.4 10^3/uL (1.5-5.0); LYMPH % 48.4 % (24.0-44.0); MEAN CORPUSCULAR HEMOGLOBIN 29.4 pg (27.0-33.0); MEAN CORPUSCULAR HGB CONC 33.8 g/dl (32.0-36.5); MEAN CORPUSCULAR VOLUME 87.1 fl (80.0-96.0); MONO # 0.6 10^3/uL (0.0-0.8); MONO % 7.9 % (0.0-5.0); NEUTROPHILS # 2.3 10^3/uL (1.5-8.5); PLATELET COUNT, AUTOMATED 244 10^3/uL (150-450); RED BLOOD COUNT 4.11 10^6/uL (4.30-6.10); WHITE BLOOD COUNT 7.1 10^3/uL (4.0-10.0)
[2020-07-26 02:22] LABS: BLOOD UREA NITROGEN 16 MG/DL (7-18); CALCIUM LEVEL 8.8 MG/DL (8.5-10.1); CARBON DIOXIDE LEVEL 31 MEQ/L (21-32); CHLORIDE LEVEL 103 MEQ/L (98-107); CK-MB VALUE MASS 1.1 NG/ML (<3.6); CPK CREATINE PHOSPHOKINASE 342 U/L (39-308); CREATININE FOR GFR 1.34 MG/DL (0.70-1.30); GLOMERULAR FILTRATION RATE > 60.0 (>56); GLUCOSE, FASTING 122 MG/DL (70-100); MB/CK RELATIVE INDEX 0.32 (< OR =4); POTASSIUM SERUM 4.7 MEQ/L (3.5-5.1); SODIUM LEVEL 139 MEQ/L (136-145); TROPONIN I < 0.02 NG/ML (< 0.10)
[2020-07-26 02:28] VITALS: BP 127/61
--- NOTE | 2020-07-26 06:09 | ECGEPIP ---
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
[2020-07-26 06:30] VITALS: BP 181/95
[2020-07-26 06:45] LABS: CK-MB VALUE MASS 1.2 NG/ML (<3.6); CPK CREATINE PHOSPHOKINASE 286 U/L (39-308); MB/CK RELATIVE INDEX 0.42 (< OR =4); TROPONIN I < 0.02 NG/ML (< 0.10)
--- NOTE | 2020-07-26 08:04 | ECGEPIP ---
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
== END 2020-07-26 07:00 | disposition home or self-care (01) ==
LOC: M ED 00:03
DX: R07.9 Chest pain, unspecified (principal); I25.10 Atherosclerotic heart disease of native coronary artery without angina pectoris; E78.5 Hyperlipidemia, unspecified; I10 Essential (primary) hypertension; G43.909 Migraine, unspecified, not intractable, without status migrainosus; G47.33 Obstructive sleep apnea (adult) (pediatric); M47.9 Spondylosis, unspecified; Z79.51 Long term (current) use of inhaled steroids; Z79.82 Long term (current) use of aspirin; Z79.899 Other long term (current) drug therapy

== ENCOUNTER → 2020-09-28 | Outpatient (CLI) | payer OTHER ==
[~2020-09-28] MED LIST changes: +ALBU8.5H INH; +BRIN10TA4 PO; +FLUTISP INH; +HYDR-643 PO; +OXYB10TA23 PO
[2020-09-28 17:29] LABS: BASO # 0.1 10^3/uL (0.0-0.2); BASO % 1.1 % (0.0-1.0); EOS # 0.6 10^3/uL (0.0-0.5); EOS % 7.6 % (0.0-3.0); HEMATOCRIT 40.3 % (42.0-52.0); HEMOGLOBIN 13.3 g/dl (13.5-17.5); LYMPH # 3.9 10^3/uL (1.5-5.0); LYMPH % 49.6 % (24.0-44.0); MEAN CORPUSCULAR HEMOGLOBIN 28.7 pg (27.0-33.0); MEAN CORPUSCULAR VOLUME 86.9 fl (80.0-96.0); MONO # 0.6 10^3/uL (0.0-0.8); MONO % 7.3 % (0.0-5.0); NEUTROPHILS # 2.7 10^3/uL (1.5-8.5); NEUTROPHILS % 34.3 % (36.0-66.0); PLATELET COUNT, AUTOMATED 277 10^3/uL (150-450); RED BLOOD COUNT 4.64 10^6/uL (4.30-6.10); WHITE BLOOD COUNT 7.9 10^3/uL (4.0-10.0)
[2020-09-28 18:09] LABS: ALBUMIN 4.4 GM/DL (3.2-5.2); ALT/SGPT 31 U/L (12-78); BILIRUBIN,TOTAL 0.3 MG/DL (0.2-1.0); BLOOD UREA NITROGEN 15 MG/DL (7-18); CALCIUM LEVEL 9.3 MG/DL (8.5-10.1); CARBON DIOXIDE LEVEL 29 MEQ/L (21-32); CHLORIDE LEVEL 103 MEQ/L (98-107); CREATININE FOR GFR 1.35 MG/DL (0.70-1.30); FERRITIN 87 NG/ML (26-388); FREE T4 0.84 NG/DL (0.76-1.46); GLOMERULAR FILTRATION RATE > 60.0 (>56); GLUCOSE, FASTING 100 MG/DL (70-100); IRON (FE) 87 UG/DL (65-175); PERCENT SATURATION 23.5 % (19.7-50.0); POTASSIUM SERUM 4.4 MEQ/L (3.5-5.1); SODIUM LEVEL 139 MEQ/L (136-145); THYROID STIMULATING HORMONE 0.612 uIU/ML (0.358-3.740); TOTAL IRON BINDING CAPACITY 370 UG/DL (250-450); TOTAL PROTEIN 8.5 GM/DL (6.4-8.2)
== END ==
LOC: M LAB 16:20
PROVIDERS: ATTEND Family Medicine
DX: R25.2 Cramp and spasm (principal)

== ENCOUNTER 2020-10-05 18:12 | Emergency (ER) | payer OTHER ==
[~2020-10-05] VITALS: Ht 177.8 cm; Wt 116.8 kg
[2020-10-05 18:12] VITALS: BP 119/64
[~2020-10-05 18:12] MED LIST changes: +GABA-282 PO; -GABA-843 PO; -LISI40TA PO; +LISI40TA4 PO; +METH-1164 PO; -METH1TAB40 PO
--- NOTE | 2020-10-05 18:54 | REPVR ---
PROCEDURE INFORMATION: Exam: CT Head Without Contrast Exam date and time: 10/05/2020 6:38 PM Age: 60 years old Clinical indication: Injury or trauma; Fall; Blunt trauma (contusions or hematomas); Consciousness not specified; Additional info: Fall injury TECHNIQUE: Imaging protocol: Computed tomography of the head without contrast. Radiation optimization: All CT scans at this facility use at least one of these dose optimization techniques: automated exposure control; mA and/or kV adjustment per patient size (includes targeted exams where dose is matched to clinical indication); or iterative reconstruction. COMPARISON: CT Head without contrast 07/17/2017 5:25 AM FINDINGS: Brain: Mild parenchymal atrophy. Otherwise unremarkable. Cerebral ventricles: No ventriculomegaly. Bones/joints: Unremarkable. No acute fracture. Paranasal sinuses: Mild inflammatory changes in the ethmoid sinuses. Mastoid air cells: Visualized mastoid air cells are well aerated. Soft tissues: Unremarkable. IMPRESSION: No acute intracranial findings. Electronically signed by: Jose Rogers On 10/05/2020 18:54:52 PM
--- NOTE | 2020-10-05 19:00 | REPVR ---
PROCEDURE INFORMATION: Exam: CT Cervical Spine Without Contrast Exam date and time: 10/05/2020 6:38 PM Age: 60 years old Clinical indication: Injury or trauma; Fall; Blunt trauma; Additional info: Fall injury TECHNIQUE: Imaging protocol: Computed tomography images of the cervical spine without contrast. Radiation optimization: All CT scans at this facility use at least one of these dose optimization techniques: automated exposure control; mA and/or kV adjustment per patient size (includes targeted exams where dose is matched to clinical indication); or iterative reconstruction. COMPARISON: No relevant prior studies available. FINDINGS: Bones/joints: Reversal of cervical lordosis. Discs/Spinal canal/Neural foramina: There are degenerative changes demonstrated in the atlantoaxial joint at C1-C2 with osteophytes and joint space narrowing. The transverse ligament is normal. Small posterior disc protrusion at C3-C4 without cord impingement. Broad posterior disc protrusion at C4-C5 effaces ventral subarachnoid space mild cord impingement. Sinuses: Mild inflammatory changes in the right sphenoid sinus. Lungs: Lung apices are normal. Soft tissues: See "Discs/Spinal canal/Neural foramina" finding. IMPRESSION: 1. No acute findings. 2. Degenerative spondylosis. Electronically signed by: Jose Rogers On 10/05/2020 19:00:27 PM
== END 2020-10-05 19:27 | disposition home or self-care (01) ==
LOC: M ED 18:12
DX: S06.0X0A Concussion without loss of consciousness, initial encounter (principal); Y92.9 Unspecified place or not applicable; Y93.9 Activity, unspecified; Y99.9 Unspecified external cause status; I11.0 Hypertensive heart disease with heart failure; E78.5 Hyperlipidemia, unspecified; Z79.82 Long term (current) use of aspirin; Z79.891 Long term (current) use of opiate analgesic; Z79.899 Other long term (current) drug therapy; Z88.6 Allergy status to analgesic agent

== ENCOUNTER 2020-11-10 08:35 | Inpatient (IN) | payer OTHER ==
[~2020-11-10] VITALS: Ht 177.8 cm; Wt 112.0 kg
[~2020-11-10 08:35] MED LIST changes: +LISI40TA PO; -LISI40TA4 PO; -METH-1164 PO; +METH1TAB40 PO
[2020-11-10] MEDS ORDERED: BUPR150T4 PO (09:21)
[2020-11-10] MEDS ORDERED: HYDR-4433 PO (09:21)
--- OUTSIDE RECORDS SUMMARY | 2020-11-10 09:27 | CCD | Continuity of Care Document ---
Author Author Edin CASTRO MD Organization Unknown Address [address] [facility] [address] [place] [address] Phone [phone] Care Team Providers Care Emergency Department Rn Name Role Phone Rebecca Rios M.D. AUTM [phone] Problems Active Problems Provider Date Essential hypertension Artemio Dupree, DO Onset: 2013 Pile easily reducible George Espinosa, DO Onset: 09/08/2016 Screening for malignant neoplasm of colon John Redd MD Onset: 09/08/2016 Benign neoplasm of colon John Redd MD Onset: 09/08/20 16 Benign neoplasm of colon John Redd MD Onset: 09/08/20 16 Other hemorrhoids John Redd MD Onset: 09/08/2016 Generalized abdominal pain Stefani Cárdenas RPA-C Onset : 09/08/2016 Hemorrhage of rectum and anus Stefani Cárdenas RPA-C On set: 09/08/2016 Hemorrhage of rectum and anus Artemio Dupree DO Onset: 09/08/2016 Melena Artemio Dupree DO Onset: 6 Left upper quadrant pain Artemio Dupree DO Onset: 08/12 Right lower quadrant pain Artemio Dupree DO Onset: Constipation Artemio Dupree DO Onset: 6 Low back pain RUBIN Valadez Onset: 09/28/2016 Solitary sacroiliitis RUBIN Valadez Onset: 09/28/2016 Lumbar radiculopathy RUBIN Valadez Onset: 09/28/2016 Pain in right lower limb RUBIN Valadez Onset: 09/28/20 16 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 RUBIN Valadez Onset: 10/06/2016 Cervical disc disorder Marcus Barry MD Onset: 10/20/2016 Neck pain RUBIN Valadez Onset: 11/03/2016 Obstructive sleep apnea syndrome SANAM Ramirez Onset: 01/30/2020 Wheezing SANAM Ramirez Onset: 01/30/2020 Social History Type Date Description Comments Sex Unknown Smokeless Tobacco Never Used Smokeless Tobacco ETOH Use 3 A Month Recreational Drug Use Denies Drug Use Tobacco Use Start: Unknown End: Unknown Patient is a former smoker QUIT 35 YEARS AGO Smoking Status Reviewed: 01/30/20 Patient is a former smoker QU IT 35 YEARS AGO Allergies, Adverse Reactions, Alerts Active Allergies Reaction Severity Comments Date Motrin FEVER 03/30/2014 Medications Active Medications SIG Qnty Indications Ordering Provide r Date CPAP Device 8cm marras SANAM Ramirez 01/30/2020 Simvastatin 40mg Tablets take one tablet by mouth every day for cholesterol Unknown Bupropion HCL ER (SR) 150mg Tablets ER 12HR 1 by mouth once a day Unknown Aspir-Low 81mg Tablets DR mora Unknown Oxybutynin Chloride ER 10mg Tablets ER 24HR 1 by mouth every day Unknown 000 Iron 325(65Fe) mg Tablets 1 by mouth every other day Unknown Trintellix 10mg Tablets 1 tab by mouth every day Unknown Baclofen 20mg Tablets 1 tab by mouth every day 60tabs Unknown Bupropion Hydrochloride ER (XL) 150mg Tablets ER 24HR 1 by mouth every day Unknown 000 Oxycodone HCL 5mg Tablets 2 by mouth every 4 hours as needed pain Unknown 0 Lisinopril 40mg Tablets 1 by mouth every day Unknown Trazodone HCL 50mg Tablets once a day at bedtime, prn Unknown Amlodipine Besylate 5mg Tablets 1 tab by mouth every day 30tabs Unknown Immunizations Description No Information Available Vital Signs Date Vital Result Comment 10/15/2020 3:49pm BP Systolic 130 mmHg BP Diastolic 62 mmHg Height 70 inches 5'10" Weight 262.38 lb BMI (Body Mass Index) 37.6 kg/m2 [place] Body Weight 166 lb Weight 119.013 kg BSA (Body Surface Area) 2.34 m2 01/30/2020 2:01pm BP Systolic 128 mmHg BP Diastolic 92 mmHg Heart Rate 70 /min O2 % BldC Oximetry 96 % Body Temperature 98.8 F Height 70 inches 5'10" Weight 259.00 lb BMI (Body Mass Index) 37.2 kg/m2 [place] Body Weight 166 lb Weight 117.482 kg BSA (Body Surface Area) 2.33 m2 Results Description No Information Available Procedures Description No Information Available Medical Devices Description No Information Available Encounters Description No Information Available Assessments Description No Information Available Plan of Treatment Future Appointment(s):* 10/29/2020 3:00 pm - Vik Castro MD at [facility] * 01/29/2021 3:00 pm - SANAM Ramirez at [facility] Pulmonary/Thoracic 01/30/2020 - SANAM Ramirez* G47.33 Obstructive sleep apnea (adult) (pediatric) * R06.2 Wheezing * Z87.891 Personal history of nicotine dependence * * Follow up:* Obtain last OV from Dr Barnes Return in 12 months for JAMES with DL Functional Status Description No Information Available Mental Status Description No Information Available Referrals Refer to Reason for Referral Status Appt Date Vik Castro MD HEMORRHOIDS Created 10/01/[address] [id number] [phone]
--- OUTSIDE RECORDS SUMMARY | 2020-11-10 09:27 | CCD ---
Author Author [facility] Organization [facility] Address Unknown Phone Unavailable Care Team Providers Care Engraver Letter Name Role Phone Rebecca Rios Unavailable PROBLEMS Type Condition ICD9-CM Code GWT95-EX Code Onset Dates Condition S tatus SNOMED Code Notes Problem Hyperlipidemia, unspecified hyperlipidemia type E7 8.5 Active 19378137 Problem Complex renal cyst N28.1 Active 4670184235197 4102 Problem Non morbid obesity due to excess calories E66.09 Active 055160135 Problem Essential hypertension I10 Active 20501268 Problem Iron deficiency anemia, unspecified iron deficiency an emia type D50.9 Active 96968148 Problem Obstructive sleep apnea G47.33 Active 99604125 Problem Stress incontinence N39.3 Active 50612181 Problem Chronic pain syndrome G89.4 Active 811137941 Problem Osteoarthritis of spine with radiculopathy, cervical regio n M47.22 Active 038311184 Problem Moderate persistent asthma, unspecified whether complicate d J45.40 Active 483581326 Problem Lumbar spondylosis M47.816 Active 488951455 Problem Recurrent major depressive disorder, in partial remission F33.41 Active 15817408 Problem Hypertensive heart disease without heart failure I 11.9 Active 88394367 Problem Anemia of chronic disease D63.8 Active 259867 009 Problem Mild persistent asthma without complication J45.30 Active 410783309 ALLERGIES Allergen (clinical drug ingredient) Drug/Non Drug Allergy do cumented on EMR Reaction Allergy Type Onset Date Status ibuprofen Ibuprofen([facility] Code:[address]-43) Nausea/Vomiting Drug All ergy Active ENCOUNTERS from 1960 to 2020-11-06 Encounter Location Date Provider Diagnosis [facility] [place] [address] [place] [address] Oct, Rebecca Rios Concussion without loss of consciousness , subsequent encounter S06.0X0D and Whiplash injury to neck, subsequent encounter S13.4XXD IMMUNIZATIONS No Information SOCIAL HISTORY Tobacco Use: Social History Observation Description Date Details (start date - stop date) Former Smoker Sex Assigned At : Social History Observation Description Sex Assigned At Unknown Alcohol Screening: Question Answer Notes Did you have a drink containing alcohol in the past year? Ye s Points 1 Interpretation Negative How often did you have six or more drinks on one occas ion in the past year? Never (0 points) How many drinks did you have on a typica l day when you were drinking in the past year? 1 or 2 (0 points) How often did you have a drink containing alcohol in t he past year? Monthly or less (1 point) BMI Care Goal Follow-Up Question Answer Notes Above Normal BMI Follow-Up Dietary management educatio n, guidance, and counseling Tobacco Use: Question Answer Notes Are you a: former smoker How long has it been since you last smoked? > 10 years REASON FOR REFERRAL No Information VITAL SIGNS Weight 263 lbs Oct, Height 70 in Oct, BMI 37.73 kg/m2 Oct, Heart Rate 63 /min Oct, Respiratory Rate 18 /min Oct, Temperature 98.2 degrees Fahrenheit Oct, Oximetry 97% Oct, Blood pressure systolic 127 mm Hg Oct, Blood pressure diastolic 70 mm Hg Oct, MEDICATIONS Medication SIG (Take, Route, Frequency, Duration) Notes Start Da te End Date Status Baclofen 20 MG 1 tablet with food or milk Orally four times daily Active Simvastatin 40 MG TAKE ONE TABLET BY MOUTH EVERY EVENING for 90 Active Fluticasone Propionate 50 MCG/ACT 1 spray in each nost ril Nasally Once a day for 90 Active Lisinopril 40 MG 1 tablet Orally Once a day Active Iron 325 (65 Fe) MG 1 tablet Orally QOD for 30 Active HydrOXYzine HCl 25 MG TAKE ONE TABLET BY MOUTH EVERY 8 HOURS NEE DED Oral Active Hydrocodone-Acetaminophen 10-325 MG 1 tablet as needed Orally every 6 hrs Active Amlodipine Besylate 5 MG 1 tablet Orally Once a day for 90 Active Aspirin 81 81 MG TAKE ONE TABLET BY MOUTH EVERY DAY for 90 Active Duloxetine HCl 60 MG TAKE ONE CAPSULE BY MOUTH EVERY DAY Oral Not-Taking Oxybutynin Chloride ER 10 MG 1 tablet Orally Once a day for 30 Active Amlodipine Besylate 5 MG 1 tablet Orally Once a day Active BuPROPion HCl ER (XL) 150 MG TAKE ONE TABLET BY MOUTH EVERY MORNING Oral for 30 Active Aspir-81 81 MG TAKE ONE TABLET BY MOUTH EVERY DAY for 90 Active Trintellix 10 MG 1 tablet Orally Once a day Active Arnuity Ellipta 100 MCG/ACT 1 puff Inhalation Once a day 0 4 Aug, 2020 Active TraZODone HCl 50 MG 1 tablet at bedtime as needed Orally Once a day Active PROCEDURES No Information RESULTS No Results REASON FOR VISIT FELL AT [facility], HURT BACK AND GOT CONCUSSION MEDICAL (GENERAL) HISTORY Type Description Date Medical History HTN- echo 02/24 with mild con centric LVH, mod , LAE, Nuc stress 2016 negative Medical History BPH Medical History Depression Medical History Migraines Medical History Kidney stones Medical History prediabetes 04/28 hemoglobin A1c 6.3 Medical History hyperlipidemia Medical History Lumbar and cervical spondylosis Medical History JAMES Medical History stable right renal complex cyst, last CT nov 2018 Medical History Mild persistent asthma Surgical History appendectomy 1983 Surgical History lithotripsy - kidney stone X 3 Surgical History TURP 2016 Hospitalization History [facility] 02/2017 Goals Section No Information Health Concerns No Information MEDICAL EQUIPMENT No Information MENTAL STATUS No Information FUNCTIONAL STATUS No Information ASSESSMENTS Encounter Date Diagnosis Assessment Notes Treatment Notes Treatm ent Clinical Notes Oct, Concussion without loss of c onsciousness, subsequent encounter (ICD-10 - S06.0X0D) Ultimately asymptomatic with an unremarkable neurologic exam, is following with Dr. Arreguin for pain management, we discussed meaning of concussion, and importance of avoiding a repeat injury within the next 6 months. Oct, Whiplash injury to neck, subsequent enco unter (ICD-10 - S13.4XXD) Fairly unremarkable exam, does have some tenderness along the trapezius, in the past he's had good effect with physical therapy, will rerefer him and have him follow-up with me as needed. PLAN OF TREATMENT Medication Medication Name Sig Start Date Stop Date Aspirin 81 81 MG TAKE ONE TABLET BY MOUTH EVERY DAY for 90 Treatment Notes Assessment Notes Clinical Notes Concussion without loss of consciousness, subsequent encount er Ultimately asymptomatic with an unremarkable neurologic exam, is following with Dr. Arreguin for pain management, we discussed meaning of concussion, and importance of avoiding a repeat injury within the next 6 months. Whiplash injury to neck, subsequent encounter Fairly unremarkable exam, does have some tenderness along the trapezius, in the past he's had good effect with physical therapy, will rerefer him and have him follow-up with me as needed. Next Appt Details prn for back and headache, regularly raymond eduled follow-up for his multiple medical problems in December Reason: Provider Name:Rebecca Rios, 2020-12-19 0 3:45:00 PM, [address] [place], [address], Insurance Providers Payer Name Payer Address Payer Phone Insured Name Patient Relati onship to Insured Coverage Start Date Coverage End Date [facility] [address] [facility] [id number] [phone] [place] MACHADO self
--- OUTSIDE RECORDS SUMMARY | 2020-11-10 09:27 | CCD ---
Author Author [facility] Organization [facility] Address Unknown Phone Unavailable Care Team Providers Care Tower Erector Helper Name Role Phone Rebecca Rios Unavailable PROBLEMS Type Condition ICD9-CM Code TUH37-PC Code Onset Dates Condition S tatus SNOMED Code Notes Problem Hyperlipidemia, unspecified hyperlipidemia type E7 8.5 Active 54451761 Problem Complex renal cyst N28.1 Active 1626364172416 4102 Problem Non morbid obesity due to excess calories E66.09 Active 025995756 Problem Essential hypertension I10 Active 97912542 Problem Iron deficiency anemia, unspecified iron deficiency an emia type D50.9 Active 17292468 Problem Obstructive sleep apnea G47.33 Active 65669269 Problem Stress incontinence N39.3 Active 81728084 Problem Chronic pain syndrome G89.4 Active 508672916 Problem Osteoarthritis of spine with radiculopathy, cervical regio n M47.22 Active 399807655 Problem Moderate persistent asthma, unspecified whether complicate d J45.40 Active 664766674 Problem Lumbar spondylosis M47.816 Active 566369057 Problem Recurrent major depressive disorder, in partial remission F33.41 Active 95404407 Problem Hypertensive heart disease without heart failure I 11.9 Active 92179609 Problem Anemia of chronic disease D63.8 Active 248796 009 Problem Mild persistent asthma without complication J45.30 Active 329743862 ALLERGIES Allergen (clinical drug ingredient) Drug/Non Drug Allergy do cumented on EMR Reaction Allergy Type Onset Date Status ibuprofen Ibuprofen([facility] Code:[address]-56) Nausea/Vomiting Drug All ergy Active ENCOUNTERS from 1960 to 2020-09-24 Encounter [facility] [address] [place] [address] Sep, Rebecca Rios Nocturnal foot cramps R25.2 ; Moderate p ersistent asthma, unspecified whether complicated J45.40 and Internal bleeding hemorrhoids K64.8 IMMUNIZATIONS No Information SOCIAL HISTORY Tobacco Use: [...] FOR REFERRAL No Information VITAL SIGNS Weight 262.6 lbs Sep, Height 70 in Sep, BMI 37.68 kg/m2 Sep, Heart Rate 66 /min Sep, Respiratory Rate 18 /min Sep, Temperature 97.8 degrees Fahrenheit Sep, Oximetry 98 Sep, Blood pressure systolic 120 mm Hg Sep, Blood pressure diastolic 57 mm Hg Sep, MEDICATIONS Medication SIG (Take, Route, Frequency, Duration) Notes Start Da te End Date Status Trintellix 10 MG 1 tablet Orally Once a day Active HydrOXYzine HCl 25 MG TAKE ONE TABLET BY MOUTH EVERY 8 HOURS NEE DED Oral Active BuPROPion HCl ER (XL) 150 MG TAKE ONE TABLET BY MOUTH EVERY MORNING Oral for 30 Active Arnuity Ellipta 100 MCG/ACT 1 puff Inhalation Once a day 0 4 Aug, 2020 Active Lisinopril 40 MG 1 tablet Orally Once a day Active Oxybutynin Chloride ER 10 MG 1 tablet Orally Once a day for 30 Active Aspirin 81 81 MG TAKE ONE TABLET BY MOUTH EVERY DAY for 90 Active Hydrocodone-Acetaminophen 10-325 MG 1 tablet as needed Orally every 6 hrs Active Duloxetine HCl 60 MG TAKE ONE CAPSULE BY MOUTH EVERY DAY Oral Not-Taking Iron 325 (65 Fe) MG 1 tablet Orally QOD for 30 Active Baclofen 20 MG 1 tablet with food or milk Orally four times daily Active Simvastatin 40 MG TAKE ONE TABLET BY MOUTH EVERY EVENING for 90 Active Amlodipine Besylate 5 MG 1 tablet Orally Once a day for 90 Active Fluticasone Propionate 50 MCG/ACT 1 spray in each nost ril Nasally Once a day for 90 Active TraZODone HCl 50 MG 1 tablet at bedtime as needed Orally Once a day Active Amlodipine Besylate 5 MG 1 tablet Orally Once a day Active Aspir-81 81 MG TAKE ONE TABLET BY MOUTH EVERY DAY for 90 Active PROCEDURES No Information RESULTS No Results REASON FOR VISIT 1 month follow up MEDICAL (GENERAL) HISTORY Type Description Date Medical [...] 3 Surgical History TURP 2016 Hospitalization History [facility] 02/2017 Goals Section No Information Health Concerns No Information MEDICAL EQUIPMENT No Information MENTAL STATUS No Information FUNCTIONAL STATUS No Information ASSESSMENTS Encounter Date Diagnosis Assessment Notes Treatment Notes Treatm ent Clinical Notes Sep, Nocturnal foot cramps (ICD-10 - R25.2) check above, suspect secondary to foot wear and pes planus, will get arch support and wider shoes, f/u 4-6 weeks if not resolving Sep, Moderate persistent asthma, unspecified whether complicated (ICD-10 - J45.40) improved control, continue current meds,discussed indications for escalation Sep, Internal bleeding hemorrhoids (ICD-10 - K64.8) PLAN OF TREATMENT Medication Medication Name Sig Start Date Stop Date Arnuity Ellipta 100 MCG/ACT 1 puff Inhalation Once a day Aug, Treatment Notes Assessment Notes Clinical Notes Nocturnal foot cramps check above, suspe ct secondary to foot wear and pes planus, will get arch support and wider shoes, f/u 4-6 weeks if not resolving Moderate persistent asthma, unspecified whether complicated improved control, continue current meds,discussed indications for escalation Treatment Notes Test Name Order Date Comprehensive Metabolic Profile (CMP) 2020-09-24 TOTAL IRON BINDING CAPACIT 2020-09-24 FREE T4 & TSH PANEL 2020-09-24 FERRITIN 2020-09-24 CBC with Differential 2020-09-24 Next Appt Details 6 Weeks Reason:foot cramps Provider Name:Rebeccadesiree Rios, 2020-12-19 0 3:45:00 PM, [address] [place], [address], Follow Up:6 Weeksfoot cramps Insurance Providers Payer Name Payer Address Payer Phone Insured Name Patient Relati onship to Insured Coverage Start Date Coverage End Date [facility] [employer] [facility] [address] [facility] [phone] [place] MACHADO self
--- OUTSIDE RECORDS SUMMARY | 2020-11-10 09:27 | CCD ---
Author Author [facility] Organization [facility] Address Unknown Phone Unavailable Care Team Providers Care Cargo Supervisor Name Role Phone Rebecca Rios Unavailable PROBLEMS Type Condition ICD9-CM Code IPE44-SD Code Onset Dates Condition S tatus SNOMED Code Notes Problem Complex renal cyst N28.1 Active 1265223537645 4102 Problem Essential hypertension I10 Active 79948488 Problem Hyperlipidemia, unspecified hyperlipidemia type E7 8.5 Active 00632827 Problem Osteoarthritis of spine with radiculopathy, cervical regio n M47.22 Active 740350002 Problem Iron deficiency anemia, unspecified iron deficiency an emia type D50.9 Active 70383583 Problem Obstructive sleep apnea G47.33 Active 09072438 Problem Mild persistent asthma without complication J45.30 Active 385454209 Problem Lumbar spondylosis M47.816 Active 477505370 Problem Chronic pain syndrome G89.4 Active 843794299 Problem Non morbid obesity due to excess calories E66.09 Active 949473052 Problem Stress incontinence N39.3 Active 26461359 Problem Recurrent major depressive disorder, in partial remission F33.41 Active 04927543 Problem Hypertensive heart disease without heart failure I 11.9 Active 98837049 Problem Anemia of chronic disease D63.8 Active 104158 009 ALLERGIES Allergen (clinical drug ingredient) Drug/Non Drug Allergy do cumented on EMR Reaction Allergy Type Onset Date Status ibuprofen Ibuprofen([facility] Code:[address]-02) Nausea/Vomiting Drug All ergy Active ENCOUNTERS from 1960 to 2020-08-16 Encounter Location Date Provider Diagnosis [facility] [address] [place] [address] Jul, Rebecca Rios Essential hypertension I10 ; Hyperlipide [place], unspecified hyperlipidemia type E78.5 ; Pre-diabetes R73.03 ; Obstructive sleep apnea G47.33 ; Need for shingles vaccine Z23 ; Need for influenza vaccination Z23 ; Recurrent major depressive disorder, in partial remission F33.41 ; Chronic pain syndrome G89.4 ; Chest pain, unspecified type R07.9 ; Mild persistent asthma without complication J45.30 and Anemia of chronic disease D63.8 IMMUNIZATIONS No Information SOCIAL HISTORY Tobacco Use: [...] FOR REFERRAL No Information VITAL SIGNS Weight 267 lbs Jul, Height 70 in Jul, BMI 38.31 kg/m2 Jul, Heart Rate 85 /min Jul, Respiratory Rate 18 /min Jul, Temperature 98.5 degrees Fahrenheit Jul, Oximetry 98% Jul, Blood pressure systolic 127 mm Hg Jul, Blood pressure diastolic 81 mm Hg Jul, MEDICATIONS Medication SIG (Take, Route, Frequency, Duration) Start Date En d Date Status Trintellix 10 MG 1 tablet Orally Once a day Active HydrOXYzine HCl 25 MG TAKE ONE TABLET BY MOUTH EVERY 8 HOURS NEE DED Oral Active Amlodipine Besylate 5 MG 1 tablet Orally Once a day Active Oxybutynin Chloride ER 10 MG 1 tablet Orally Once a day for 30 Active Lisinopril 40 MG 1 tablet Orally Once a day Active BuPROPion HCl ER (XL) 150 MG TAKE ONE TABLET BY MOUTH EVERY MORNING Oral for 30 Active Arnuity Ellipta 100 MCG/ACT 1 puff Inhalation Once a day for 30 Days Aug, Active Simvastatin 40 MG TAKE ONE TABLET BY MOUTH EVERY EVENING for 90 Active TraZODone HCl 50 MG 1 tablet at bedtime as needed Orally Once a day Active Duloxetine HCl 60 MG TAKE ONE CAPSULE BY MOUTH EVERY DAY Oral Not-Taking Aspirin 81 81 MG TAKE ONE TABLET BY MOUTH EVERY DAY for 90 Active Iron 325 (65 Fe) MG 1 tablet Orally QOD for 30 Active Baclofen 20 MG 1 tablet with food or milk Orally four times daily Active Hydrocodone-Acetaminophen 10-325 MG 1 tablet as needed Orally every 6 hrs Active Amlodipine Besylate 5 MG 1 tablet Orally Once a day for 90 Active Flovent Diskus 100 MCG/BLIST 1 puff Inhalation Twice a day f or 30 Days Jul, Active Fluticasone Propionate 50 MCG/ACT 1 spray in each nost ril Nasally Once a day for 90 Active Aspir-81 81 MG TAKE ONE TABLET BY MOUTH EVERY DAY for 90 Active PROCEDURES No Information RESULTS No Results REASON FOR VISIT FOLLOW UP MEDICAL (GENERAL) HISTORY Type Description Date Medical [...] renal complex cyst, last CT nov 2018 Surgical History appendectomy 1984 Surgical History lithotripsy - kidney stone X 3 Surgical History TURP 2017 Hospitalization History [facility] 02/2017 Goals Section No Information Health Concerns No Information MEDICAL EQUIPMENT No Information MENTAL STATUS No Information FUNCTIONAL STATUS No Information ASSESSMENTS Encounter Date Diagnosis Notes Jul, Anemia of chronic disease (ICD-10 - D63. 8) Jul, Mild persistent asthma without complicat ion (ICD-10 - J45.30) Jul, Hyperlipidemia, unspecified hyperlipidem ia type (ICD-10 - E78.5) Jul, Essential hypertension (ICD-10 - I10) Jul, Recurrent major depressive d isorder, in partial remission (ICD-10 - F33.41) Jul, Chest pain, unspecified type (ICD-10 - R 07.9) Jul, Chronic pain syndrome (ICD-10 - G89.4) Jul, Obstructive sleep apnea (ICD-10 - G47.33 ) Jul, Pre-diabetes (ICD-10 - R73.03) Jul, Need for influenza vaccination (ICD-10 - Z23) Jul, Need for shingles vaccine (ICD-10 - Z23) PLAN OF TREATMENT Medication Medication Name Sig Start Date Stop Date TraZODone HCl 50 MG 1 tablet at bedtime as needed Orally Once a day Flovent Diskus 100 MCG/BLIST 1 puff Inhalation Twice a day f or 30 Days Jul, Simvastatin 40 MG TAKE ONE TABLET BY MOUTH EVERY EVENING for 90 Arnuity Ellipta 100 MCG/ACT 1 puff Inhalation Once a day for 30 Days Aug, Trintellix 10 MG 1 tablet Orally Once a day HydrOXYzine HCl 25 MG TAKE ONE TABLET BY MOUTH EVERY 8 HOURS NEEDED Oral Amlodipine Besylate 5 MG 1 tablet Orally Once a day Lisinopril 40 MG 1 tablet Orally Once a day Treatment Notes Assessment Notes Clinical Notes Essential hypertension Blood pressure is stable on meds. Continue current management. Attempt to follow DASH diet (lots of fruit, vegetable and low-fat dairy, low in saturated fat). Reduce salt to less than 2.4 grams/day. Engage in aerobic activities for 30 minutes on most days. Maintain a healthy weight. Limit alcohol intake to one drink a day Pre-diabetes We extensively discu ssed health risks obesity, s in the pre- contemplative phase we discussed making small changes now including eating a heart healthy low fat, low cholesterol, no added salt diet. Minimizing the number of sodas and simple sugar food consumed. Given a copy of the food plate Encouraged exercising 20-30 minutes, 3-4 times a week. Encouraged strength training to increase lean muscle mass at least 2-3 times a week Obstructive sleep apnea states the water is leaking out of his cpap, suspect this may be paritally responsible for his blood in the mrning givent he scab in his nose., he will give a trial of lfonas and get the machine repaired, if still sx in 4 weeks, will start work up. Need for shingles vaccine Patient was of fered the above vaccination. We extensively discussed the risks and benefits of the vaccination. The patient declines to be immunized today. Need for influenza vaccination Patient w as offered the above vaccination. We extensively discussed the risks and benefits of the vaccination. The patient declines to be immunized today. Recurrent major depressive disorder, in partial remission stable, safety plan in place Chest pain, unspecified type seen in ed for chest pain, has eval this afternoon with cardiology, discussed need for compliance and rationale behind the evaluation, verbalizes understanding Mild persistent asthma without complication will esclate to flovent, discussed use of inhaler prn, goal being less than 2x/week, suspect a lot of this may be his house mold, and he is moving in a month, will f/u 3 months, sooner prn Anemia of chronic disease stable, suspec t secondary to chronic narcotic use, iron levels are normal no bleeding Next Appt Details 3 Months Reason:asthma Provider Name:Enrico Matson, 2020-09-09 04:00:00 PM, [address] [place], [address], [facility] Insurance Providers Payer Name Payer Address Payer Phone Insured Name Patient Relati onship to Insured Coverage Start Date Coverage End Date [facility] [address] [facility] [phone] [place] MACHADO self
--- OUTSIDE RECORDS SUMMARY | 2020-11-10 09:27 | CCD | Continuity of Care Document ---
Author Author [facility] Edin J Organization Unknown Address [address] [place] [address], [place] [address] Phone [phone] Care Team Providers Care Engineer Systems Name Role Phone Stevie Shanks MD AUTM [phone] Mejia العراقي MD AUTM [phone] Rebecca Rios MD AUTM [phone] Pk Delgado M.D. AUTM [phone] Stevie Mcneil DDS AUTM BrockLuis roe DO AUTM [phone] Jessica Solis PARTS AND SERVICE MANAGER AUTM [phone] Abundio Carbajal DMD AUTM [phone] Chadd Christine MD AUTM [phone] Problems Active Problems Provider Date Precordial pain Pk Barnes MD Onset: 05/07/2017 Dyspnea Pk Barnes MD Onset: 05/07/2017 Syncope and collapse Pk Barnes MD Onset: 05/07/2017 Electrocardiogram abnormal Pk Barnes MD Onset: 2016 Obstructive sleep apnea syndrome Pk Barnes MD Onset: 05/07/2017 Preoperative cardiovascular examination Pk Barnes MD Onset: 05/07/2017 Body mass index 30+ - obesity Pk Barnes MD Onset: Hypertensive heart disease without congestive heart failure Pk Barnes MD Onset: 05/07/2017 Dietary management surveillance [facility] [place] Onset: 08/16/2018 Obesity [place] [place] Onset: 08/09/2020 Social History Type Date Description Comments Sex Unknown ETOH Use Currently consumes alcohol Drink s socially Tobacco Use Start: Unknown Patient has never smoked Smoking Status Reviewed: 08/09/20 Patient has never smoked Exercise Type/Frequency Walks daily 20 minut es a day Exercise Limitations Back Pain Allergies, Adverse Reactions, Alerts Active Allergies Reaction Severity Comments Date Motrin Fever, N/V 09/15/2013 Medications Active Medications SIG Qnty Indications Ordering Provide r Date Baclofen 20mg Tablets 1 by mouth four times a day as needed Chadd Christine MD 08/08 Ferrous Sulfate 324(65Fe) mg Table ts DR 1 by mouth once every other day Rebecca Rios M D 08/08/2020 Hydrocodone-Acetaminophen 10-325mg Tablets 1 by mouth every 6 hours as needed mmd=6 Chadd Christine MD 08/08/2020 Bupropion Hydrochloride ER (SR) 150mg Tablets ER 12HR 1 by mouth once a day Chadd Christine M D 08/08/2020 Hydroxyzine HCL 10mg Tablets 2 by mouth up to 4 times daily as needed Chadd Christine MD 08/08/2020 Trintellix 5mg Tablets 1 tab po daily Unknown 08/15/2019 Oxybutynin Chloride ER 10mg Tablets ER 24HR 1 by mouth every day Unknown 019 Simvastatin 40mg Tablets 1 by mouth every day Unknown 05/06/2017 Aspirin Ec 81mg Tablets DR 1 by mouth every day Unknown 05/06/2017 Amlodipine Besylate 5mg Tablets 1 by mouth every day Unknown 05/06/2017 Lisinopril 40mg Tablets 1 po qd Unknown 09/12/2013 Immunizations Description No Information Available Vital Signs Date Vital Result Comment 08/09/2020 8:31am Weight 257.00 lb Height 70 inches 5'10" BMI (Body Mass Index) 36.9 kg/m2 Heart Rate 64 /min BP Systolic Sitting 132 mmHg large cuff, Ra BP Diastolic Sitting 86 mmHg large cuff, Ra 08/16/2019 3:17pm Weight 255.00 lb Height 70 inches 5'10" BMI (Body Mass Index) 36.6 kg/m2 Heart Rate 66 /min BP Systolic Sitting 128 mmHg BP Diastolic Sitting 76 mmHg Results Test Acquired Date Facility Test Result H/L Range Note BMP 07/26/2020 [facility] - not interfaced (315)- - Calcium Ser/Plasma Mass/Vol 8.8 Sodium 139 Carbon Dioxide Ser/Plasm 31 Chloride Serum/Plasma 103 Potassium 4.7 Glucose 122 High 70-100 Blood Urea Nitrogen 16 7-18 Creatinine 1.34 High 0.70-1.30 G F R >60.0 CBC without Differential 07/26/2020 [facility] - not inter faced (315)- - White Blood Count 7.1 4.0-10.0 Red Blood Count 4.11 Low 4.30-6.10 Platelets 244 150-450 Hemoglobin 12.1 Hematocrit 35.8 Procedures Date Code Description Status 08/13/2020 76730 Treadmill/Pharmacological Monito ring Completed 08/13/2020 70229 Myocardial Perfusion Spect Multi ple Completed 08/09/2020 37810 ECG 12-Lead Completed Medical Devices Description No Information Available Encounters Type Date Location Provider Dx Diagnosis Office Visit 08/09/2020 8:15a Main Office [place] R07.9 Chest pain, unspecified I48.0 Paroxysmal atrial fibrillati on I11.9 [facility] Obstructive sleep apnea (rebeka lt) (pediatric) R94.31 Abnormal electrocardiogram [ ECG] [EKG] E66.8 Other obesity Z71.3 Dietary counseling and surve illance Assessments Date Code Description Provider 08/13/2020 R07.9 Chest pain, unspecified Stress N uclear/Reg Treadmill 08/09/2020 R07.9 Chest pain, unspecified [facility] [place] 08/09/2020 I48.0 Paroxysmal atrial fibrillation A [facility] [place] 08/09/2020 I11.9 Hypertensive heart disease witho ut heart failure [facility] [place] 08/09/2020 G47.33 Obstructive sleep apnea (adult) (pediatric) [facility] [place] 08/09/2020 R94.31 Abnormal electrocardiogram [ECG] [EKG] [facility] [place] 08/09/2020 E66.8 Other obesity [facility] [place] 08/09/2020 Z71.3 Dietary counseling and surveilla nce [facility] [place] Plan of Treatment Future Appointment(s):* 02/07/2021 10:45 am - [facility] at Main Office 08/09/2020 - [place]* R07.9 Chest pain, unspecified* Recommendations:* Please schedule stress test. * I48.0 Paroxysmal atrial fibrillation* Recommendations:* Please call the office if you have any sustained episodes of tachycardia (heart rate above 110 bpm at rest) or palpitations. * I11.9 Hypertensive heart disease without heart failure* Recommendations:* No medication changes were made today. * G47.33 Obstructive sleep apnea (adult) (pediatric)* Recommendations:* Reinforced the consistent use of CPAP will assist in blood pressure reduction and promote nocturnal blood pressure dipping patterns. Negative effects of hypoxia during sleep were reviewed including impaired daytime cognition and level of alertness. * R94.31 Abnormal electrocardiogram [ECG] [EKG]* Recommendations:* No significant change. No further workup required. * E66.8 Other obesity * Z71.3 Dietary counseling and surveillance* Recommendations:* Recommend adopting a more whole foods, plant-based diet in addition to moderate exercise a minimum of 30 minutes 6 days a week. In order to optimize cardiovascular health please be conscious of processed foods, alcohol (no more than two dr inks a day for men and one drink a day for women), salt (<2000 mg/d), oils, saturated fat/animal products, and highly refined carbohydrates such as breads, pastas, and sweets. * All * Follow up:* Follow up in 6 months. Functional Status Functional Condition Comment Date Status Independent with all ADL's Activ e Mental Status Description No Information Available Referrals Refer to Reason for Referral Status Appt Date Pk Barnes MD [facility] AUTH EMR-EXPIRES 09/23/20. [place] Created [id number] [facility], [facility] [place] [id number] [phone]
--- OUTSIDE RECORDS SUMMARY | 2020-11-10 09:27 | CCD ---
Author Author [facility] Organization [facility] Address Unknown Phone Unavailable Care Team Providers Care Research Test Engine Operator Name Role Phone Rebecca Rios Unavailable PROBLEMS Type Condition ICD9-CM Code ZTN01-VP Code Onset Dates Condition S tatus SNOMED Code Notes Problem Complex renal cyst N28.1 Active [id number] 4102 Problem Essential hypertension I10 Active 91638713 Problem Hyperlipidemia, unspecified hyperlipidemia type E7 8.5 Active 33426914 Problem Osteoarthritis of spine with radiculopathy, cervical regio n M47.22 Active 098115872 Problem Iron deficiency anemia, unspecified iron deficiency an emia type D50.9 Active 15316539 Problem Obstructive sleep apnea G47.33 Active 42247287 Problem Mild persistent asthma without complication J45.30 Active 295632136 Problem Lumbar spondylosis M47.816 Active 353002999 Problem Chronic pain syndrome G89.4 Active 074281913 Problem Non morbid obesity due to excess calories E66.09 Active 218886479 Problem Stress incontinence N39.3 Active 83350312 Problem Recurrent major depressive disorder, in partial remission F33.41 Active 56581464 Problem Hypertensive heart disease without heart failure I 11.9 Active 09217702 Problem Anemia of chronic disease D63.8 Active 025061 009 ALLERGIES Allergen (clinical drug ingredient) Drug/Non Drug Allergy do cumented on EMR Reaction Allergy Type Onset Date Status ibuprofen Ibuprofen([facility] Code:[address]-77) Nausea/Vomiting Drug All ergy Active ENCOUNTERS from 1960 to 2020-08-14 Encounter Location Date Provider Diagnosis [address] [address] Jul, Rebecca Rios IMMUNIZATIONS No Information SOCIAL HISTORY Tobacco Use: [...] REASON FOR REFERRAL No Information VITAL SIGNS No information MEDICATIONS Medication SIG (Take, Route, Frequency, Duration) Start Date En d Date Status Trintellix 10 MG 1 tablet Orally Once a day Active HydrOXYzine HCl 25 MG TAKE ONE TABLET BY MOUTH EVERY 8 HOURS NEE DED Oral Active Amlodipine Besylate 5 MG 1 tablet Orally Once a day Active Aspirin 81 81 MG TAKE ONE TABLET BY MOUTH EVERY DAY for 90 Active Lisinopril 40 MG 1 tablet Orally Once a day Active Iron 325 (65 Fe) MG 1 tablet Orally QOD for 30 Active Arnuity Ellipta 100 MCG/ACT 1 puff Inhalation Once a day for 30 Days Aug, Active BuPROPion HCl ER (XL) 150 MG TAKE ONE TABLET BY MOUTH EVERY MORNING Oral for 30 Active TraZODone HCl 50 MG 1 tablet at bedtime as needed Orally Once a day Active Amlodipine Besylate 5 MG 1 tablet Orally Once a day for 90 Active Duloxetine HCl 60 MG TAKE ONE CAPSULE BY MOUTH EVERY DAY Oral Not-Taking Fluticasone Propionate 50 MCG/ACT 1 spray in each nost ril Nasally Once a day for 90 Active Aspir-81 81 MG TAKE ONE TABLET BY MOUTH EVERY DAY for 90 Active Oxybutynin Chloride ER 10 MG 1 tablet Orally Once a day for 30 Active Baclofen 20 MG 1 tablet with food or milk Orally four times daily Active Flovent Diskus 100 MCG/BLIST 1 puff Inhalation Twice a day f or 30 Days 29 Oct, 2020 Active Hydrocodone-Acetaminophen 10-325 MG 1 tablet as needed Orally every 6 hrs Active Simvastatin 40 MG TAKE ONE TABLET BY MOUTH EVERY EVENING Active PROCEDURES No Information RESULTS No Results REASON FOR VISIT PA Flovent Diskus 100mcg/blist MEDICAL (GENERAL) HISTORY Type Description Date Medical [...] 3 Surgical History TURP 2017 Hospitalization History [facility] 02/2017 Goals Section No Information Health Concerns No Information MEDICAL EQUIPMENT No Information MENTAL STATUS No Information FUNCTIONAL STATUS No Information ASSESSMENTS No Information PLAN OF TREATMENT Medication Medication Name Sig Start Date Stop Date TraZODone HCl 50 MG 1 tablet at bedtime as needed Orally Once a day Flovent Diskus 100 MCG/BLIST 1 puff Inhalation Twice a day f or 30 Days Jul, Simvastatin 40 MG TAKE ONE TABLET BY MOUTH EVERY EVENING Arnuity Ellipta 100 MCG/ACT 1 puff Inhalation Once a day for 30 Days Aug, Trintellix 10 MG 1 tablet Orally Once a day HydrOXYzine HCl 25 MG TAKE ONE TABLET BY MOUTH EVERY 8 HOURS NEEDED Oral Amlodipine Besylate 5 MG 1 tablet Orally Once a day Lisinopril 40 MG 1 tablet Orally Once a day Next Appt Details Provider Name:Enrico Matson, 2020-09-09 04:00:00 PM, [address] [place], [address], Insurance Providers Payer Name Payer Address Payer Phone Insured Name Patient Relati onship to Insured Coverage Start Date Coverage End Date FORMERLY [facility] [employer] [facility] [address] [facility] [phone] [place] self
--- OUTSIDE RECORDS SUMMARY | 2020-11-10 09:28 | CCD ---
Author Author [facility] Organization [facility] Address Unknown Phone Unavailable Care Team Providers Care Chip Drier Name Role Phone PARADA, L CRYSTAL SALES AND OPERATIONS TRAINEE Unavailable Unavailable PARADA, L CRYSTAL SALES AND OPERATIONS TRAINEE Unavailable Unavailable PARADA, L CRYSTAL SALES AND OPERATIONS TRAINEE Unavailable Unavailable PARADA, L CRYSTAL SALES AND OPERATIONS TRAINEE Unavailable Unavailable PARADA, L CRYSTAL SALES AND OPERATIONS TRAINEE Unavailable Unavailable PARADA, L CRYSTAL SALES AND OPERATIONS TRAINEE Unavailable Unavailable PARADA, L CRYSTAL SALES AND OPERATIONS TRAINEE Unavailable Unavailable PARADA, L CRYSTAL SALES AND OPERATIONS TRAINEE Unavailable Unavailable PARADA, L CRYSTAL SALES AND OPERATIONS TRAINEE Unavailable Unavailable PARADA, L CRYSTAL SALES AND OPERATIONS TRAINEE Unavailable Unavailable PARADA, L CRYSTAL SALES AND OPERATIONS TRAINEE Unavailable Unavailable Bradley CLAROS MD Unavailable Unavailable Bradley CLAROS MD Unavailable Unavailable Bradley CLAROS MD Unavailable Unavailable Bradley CLAROS MD Unavailable Unavailable Bradley CLAROS MD Unavailable Unavailable Bradley CLAROS MD Unavailable Unavailable Bradley CLAROS MD Unavailable Unavailable Bradley CLAROS MD Unavailable Unavailable Bradley CLAROS MD Unavailable Unavailable Bradley CLAROS MD Unavailable Unavailable Bradley CLAROS MD Unavailable Unavailable Bradley CLAROS MD Unavailable Unavailable Bradley CLAROS MD Unavailable Unavailable Bradley CLAROS MD Unavailable Unavailable Bradley CLAROS MD Unavailable Unavailable Bradley CLAROS MD Unavailable Unavailable Bradley CLAROS MD Unavailable Unavailable Bradley CLAROS MD Unavailable Unavailable Bradley CLAROS MD Unavailable Unavailable Bradley CLAROS MD Unavailable Unavailable Bradley CLAROS MD Unavailable Unavailable Bradley CLAROS MD Unavailable Unavailable Bradley CLAROS MD Unavailable Unavailable Bradley CLAROS MD Unavailable Unavailable Bradley CLAROS MD Unavailable Unavailable Bradley CLAROS MD Unavailable Unavailable Bradley CLAROS MD Unavailable Unavailable Bradley CLAROS MD Unavailable Unavailable Bradley CLAROS MD Unavailable Unavailable Bradley CLAROS MD Unavailable Unavailable Bradley CLAROS MD Unavailable Unavailable Bradley CLAROS MD Unavailable Unavailable Bradley CLAROS MD Unavailable Unavailable Bradley CLAROS MD Unavailable Unavailable Bradley CLAROS MD Unavailable Unavailable Bradley CLAROS MD Unavailable Unavailable Bradley CLAROS MD Unavailable Unavailable Bradley CLAROS MD Unavailable Unavailable Bradley CLAROS MD Unavailable Unavailable Bradley CLAROS MD Unavailable Unavailable Bradley CLAROS MD Unavailable Unavailable NITISH LOPEZ MD Unavailable Unavailable NITISH LOPEZ MD Unavailable Unavailable NITISH LOPEZ MD Unavailable Unavailable NITISH LOPEZ MD Unavailable Unavailable NITISH LOPEZ MD Unavailable Unavailable NITISH LOPEZ MD Unavailable Unavailable NITISH LOPEZ MD Unavailable Unavailable NITISH LOPEZ MD Unavailable Unavailable NITISH LOPEZ MD Unavailable Unavailable NITISH LOPEZ MD Unavailable Unavailable NITISH LOPEZ MD Unavailable Unavailable KIDWAINITISHK Unavailable Unavailable DARIAWAINITISH MD Unavailable Unavailable DARIAWAINITISH MD Unavailable Unavailable KIDWAINITISHK Unavailable Unavailable KIDWAINITISH MD Unavailable Unavailable KIDWAINITISHOOK Unavailable Unavailable DARIAWAINITISH MD Unavailable Unavailable DARIAWAINITISH MD Unavailable Unavailable KIDWAINITISH MD Unavailable Unavailable KIDWAINITISH MD Unavailable Unavailable KIDWAINITISH MD Unavailable Unavailable KIDWAINITISH MD Unavailable Unavailable KIDWAINITISH MD Unavailable Unavailable KIDWAINITISH MD Unavailable Unavailable KIDWAINITISH MD Unavailable Unavailable ANKITAINITISH MD Unavailable Unavailable DARIAWAINITISH MD Unavailable Unavailable KIDWAINITISH MD Unavailable Unavailable DARIAWAINITISH MD Unavailable Unavailable DARIAWAINITISH MD Unavailable Unavailable DARIAWANITISH Ventura MD Unavailable Unavailable NITISH LOPEZ MD Unavailable Unavailable DARIAWAINITISH MD Unavailable Unavailable NITISH LOPEZ MD Unavailable Unavailable NITISH LOPEZ MD Unavailable Unavailable NITISH LOPEZ MD Unavailable Unavailable NITISH LOPEZ MD Unavailable Unavailable DARIAWAINITISH MD Unavailable Unavailable DARIAWANITISH Ventura MD Unavailable Unavailable DARIAWANITISH Ventura MD Unavailable Unavailable NITISH LOPEZ MD Unavailable Unavailable NITISH LOPEZ MD Unavailable Unavailable NITISH LOPEZ MD Unavailable Unavailable MARÍA TONG LCSW Unavailable Unavailable Dariusz Dos Santos MD Unavailable Unavailable Dariusz Dos Santos MD Unavailable Unavailable Dariusz Dos Santos MD Unavailable Unavailable Dariusz Dos Santos MD Unavailable Unavailable Dariusz Dos Santos MD Unavailable Unavailable Dariusz Dos Santos MD Unavailable Unavailable Dariusz Dos Santos MD Unavailable Unavailable Dariusz Dos Santos MD Unavailable Unavailable Dariusz Dos Santos MD Unavailable Unavailable Dariusz Dos Santos MD Unavailable Unavailable Dariusz Dos Santos MD Unavailable Unavailable Dariusz Dos Santos MD Unavailable Unavailable Dariusz Dos Santos MD Unavailable Unavailable Dariusz Dos Santos MD Unavailable Unavailable Dariusz Dos Santos MD Unavailable Unavailable Dariusz Dos Santos MD Unavailable Unavailable Dariusz Dos Santos MD Unavailable Unavailable Dariusz Dos Santos MD Unavailable Unavailable Dariusz Dos Santos MD Unavailable Unavailable Dariusz Dos Santos MD Unavailable Unavailable Dariusz Dos Santos MD Unavailable Unavailable Dariusz Dos Santos MD Unavailable Unavailable Dariusz Dos Santos MD Unavailable Unavailable Dariusz Dos Santos MD Unavailable Unavailable Dariusz Dos Santos MD Unavailable Unavailable Dariusz Dos Santos MD Unavailable Unavailable Dariusz Dos Santos MD Unavailable Unavailable Dariusz Dos Santos MD Unavailable Unavailable Dariusz Dos Santos MD Unavailable Unavailable Dariusz Dos Santos MD Unavailable Unavailable Dariusz Dos Santos MD Unavailable Unavailable Dariusz Dos Santos MD Unavailable Unavailable Dariusz Dos Santos MD Unavailable Unavailable Dariusz Dos Santos MD Unavailable Unavailable Dariusz Dos Santos MD Unavailable Unavailable Dariusz Dos Santos MD Unavailable Unavailable Dariusz Dos Santos MD Unavailable Unavailable Dariusz Dos Santos MD Unavailable Unavailable Dariusz Dos Santos MD Unavailable Unavailable Dariusz Dos Santos MD Unavailable Unavailable Dariusz Dos Santos MD Unavailable Unavailable Dariusz Dos Santos MD Unavailable Unavailable Dariusz Dos Santos MD Unavailable Unavailable Dariusz Dos Santos MD Unavailable Unavailable Dariusz Dos Santos MD Unavailable Unavailable Dariusz Dos Santos MD Unavailable Unavailable Dariusz Dos Santos MD Unavailable Unavailable Dariusz Dos Santos MD Unavailable Unavailable Dariusz Dos Santos MD Unavailable Unavailable Dariusz Dos Santos MD Unavailable Unavailable Dariusz Dos Santos MD Unavailable Unavailable Dariusz Dos Santos MD Unavailable Unavailable Dariusz Dos Santos MD Unavailable Unavailable Dariusz Dos Santos MD Unavailable Unavailable Dariusz Dos Santos MD Unavailable Unavailable Dariusz Dos Santos MD Unavailable Unavailable Dariusz Dos Santos MD Unavailable Unavailable Dariusz Dos Santos MD Unavailable Unavailable Dariusz Dos Santos MD Unavailable Unavailable Dariusz Dos Santos MD Unavailable Unavailable Dariusz Dos Santos MD Unavailable Unavailable Dariusz Dos Santos MD Unavailable Unavailable Dariusz Dos Santos MD Unavailable Unavailable Dariusz Dos Santos MD Unavailable Unavailable Dariusz Dos Santos MD Unavailable Unavailable Dariusz Dos Santos MD Unavailable Unavailable Dariusz Dos Santos MD Unavailable Unavailable Dariusz Dos Santos MD Unavailable Unavailable Dariusz Dos Santos MD Unavailable Unavailable Dariusz Dos Santos MD Unavailable Unavailable Dariusz Dos Santos MD Unavailable Unavailable Dariusz Dos Santos MD Unavailable Unavailable Dariusz Dos Santos MD Unavailable Unavailable Dariusz Dos Santos MD Unavailable Unavailable Dariusz Dos Santos MD Unavailable Unavailable Dariusz Dos Santos MD Unavailable Unavailable Dariusz Dos Santos MD Unavailable Unavailable Dariusz Dos Santos MD Unavailable Unavailable Dariusz Dos Santos MD Unavailable Unavailable Dariusz Dos Santos MD Unavailable Unavailable Dariusz Dos Santos MD Unavailable Unavailable Dariusz Dos Santos MD Unavailable Unavailable Dariusz Dos Santos MD Unavailable Unavailable Dariusz Dos Santos MD Unavailable Unavailable Dariusz Dos Santos MD Unavailable Unavailable Dariusz Dos Santos MD Unavailable Unavailable Dariusz Dos Santos MD Unavailable Unavailable Dariusz Dos Santos MD Unavailable Unavailable Dariusz Dos Santos MD Unavailable Unavailable Easton, L Alina PA Unavailable Unavailable Easton, L Alina PA Unavailable Unavailable Easton, L Alina PA Unavailable Unavailable Easton, L Alina PA Unavailable Unavailable Easton, L Alina PA Unavailable Unavailable Easton, L Alina PA Unavailable Unavailable Easton, L Alina PA Unavailable Unavailable Easton, L Alina PA Unavailable Unavailable Easton, L Alina PA Unavailable Unavailable Easton, L Alina PA Unavailable Unavailable Easton, L Alina PA Unavailable Unavailable Easton, L Alina PA Unavailable Unavailable Easton, L Alina PA Unavailable Unavailable Easton, L Alina PA Unavailable Unavailable Easton, L Alina PA Unavailable Unavailable Easton, L Alina PA Unavailable Unavailable Easton, L Alina PA Unavailable Unavailable Easton, L Alina PA Unavailable Unavailable Easton, L Alina PA Unavailable Unavailable Easton, L Alina PA Unavailable Unavailable Easton, L Alina PA Unavailable Unavailable Easton, L Alina PA Unavailable Unavailable Easton, L Alina PA Unavailable Unavailable María Pichardo MD Unavailable Unavailable María Pichardo MD Unavailable Unavailable María Pichardo MD Unavailable Unavailable María Pichardo MD Unavailable Unavailable María Pichardo MD Unavailable Unavailable María Pichardo MD Unavailable Unavailable María Pichardo MD Unavailable Unavailable María Pichardo MD Unavailable Unavailable María Pichardo MD Unavailable Unavailable María Pichardo MD Unavailable Unavailable María Pichardo MD Unavailable Unavailable María Pichardo MD Unavailable Unavailable María Pichardo MD Unavailable Unavailable María Pichardo MD Unavailable Unavailable María Pcihardo MD Unavailable Unavailable María Pichardo MD Unavailable Unavailable María Pichardo MD Unavailable Unavailable María Pichardo MD Unavailable Unavailable María Pihcardo MD Unavailable Unavailable María Pichardo MD Unavailable Unavailable María Pichardo MD Unavailable Unavailable María Pichardo MD Unavailable Unavailable María Pichardo MD Unavailable Unavailable María Pichardo MD Unavailable Unavailable Heitner, María Rangel MD Unavailable Unavailable BESHAW, CAR RESTORER HUMBERTO Unavailable Unavailable FRANKO, L JOAQUIN MD Unavailable Unavailable FRANKO, L JOAQUIN MD Unavailable Unavailable FRANKO, L JOAQUIN MD Unavailable Unavailable FRANKO, L JOAQUIN MD Unavailable Unavailable FRANKO, L JOAQUIN MD Unavailable Unavailable FRANKO, L JOAQUIN MD Unavailable Unavailable FRANKO, L JOAQUIN MD Unavailable Unavailable FRANKO, L JOAQUIN MD Unavailable Unavailable FRANKO, L JOAQUIN MD Unavailable Unavailable FRANKO, L JOAQUIN MD Unavailable Unavailable FRANKO, L JOAQUIN MD Unavailable Unavailable FRANKO, L JOAQUIN MD Unavailable Unavailable FRANKO, L JOAQUIN MD Unavailable Unavailable FRANKO, L JOAQUIN MD Unavailable Unavailable FRANKO, L JOAQUIN MD Unavailable Unavailable FRANKO, L JOAQUIN MD Unavailable Unavailable FRANKO, L JOAQUIN MD Unavailable Unavailable FRANKO, L JOAQUIN MD Unavailable Unavailable FRANKO, L JOAQUIN MD Unavailable Unavailable FRANKO, L JOAQUIN MD Unavailable Unavailable FRANKO, L JOAQUIN MD Unavailable Unavailable FRANKO, L JOAQUIN MD Unavailable Unavailable FRANKO, L JOAQUIN MD Unavailable Unavailable Sandro, L Dory SALES AND OPERATIONS TRAINEE Unavailable Unavailable Sandro, L Dory SALES AND OPERATIONS TRAINEE Unavailable Unavailable Sandro, L Dory SALES AND OPERATIONS TRAINEE Unavailable Unavailable Sandro, L Dory SALES AND OPERATIONS TRAINEE Unavailable Unavailable Sandro, L Dory SALES AND OPERATIONS TRAINEE Unavailable Unavailable Sandro, L Dory SALES AND OPERATIONS TRAINEE Unavailable Unavailable Sandro, L Dory SALES AND OPERATIONS TRAINEE Unavailable Unavailable Sandro, L Dory SALES AND OPERATIONS TRAINEE Unavailable Unavailable Sandro, L Dory SALES AND OPERATIONS TRAINEE Unavailable Unavailable Sandro, L Dory SALES AND OPERATIONS TRAINEE Unavailable Unavailable Sandro, L Dory SALES AND OPERATIONS TRAINEE Unavailable Unavailable Sandro, L Dory SALES AND OPERATIONS TRAINEE Unavailable Unavailable Sandro, L Dory SALES AND OPERATIONS TRAINEE Unavailable Unavailable Sandro, L Dory SALES AND OPERATIONS TRAINEE Unavailable Unavailable Sandro, L Dory SALES AND OPERATIONS TRAINEE Unavailable Unavailable Sandro, L Dory SALES AND OPERATIONS TRAINEE Unavailable Unavailable Sandro, L Dory SALES AND OPERATIONS TRAINEE Unavailable Unavailable Sandro, L Dory SALES AND OPERATIONS TRAINEE Unavailable Unavailable Sandro, L Dory SALES AND OPERATIONS TRAINEE Unavailable Unavailable Sandro, L Dory SALES AND OPERATIONS TRAINEE Unavailable Unavailable Sandro, L Dory SALES AND OPERATIONS TRAINEE Unavailable Unavailable Sandro, L Dory SALES AND OPERATIONS TRAINEE Unavailable Unavailable Re-disclosure Warning The records that you are about to access may contain information from federally-assisted alcohol or drug abuse programs. If such information is present, then the following federally mandated warning applies: This information has been disclosed to you from records protected by federal confidentiality rules (42 CFR part 2). The federal rules prohibit you from making any further disclosure of this information unless further disclosure is expressly permitted by the written consent of the person to whom it pertains or as otherwise permitted by 42 CFR part 2. A general authorization for the release of medical or other information is NOT sufficient for this purpose. The Federal rules restrict any use of the information to criminally investigate or prosecute any alcohol or drug abuse patient.The records that you are about to access may contain highly sensitive health information, the redisclosure of which is protected by Article 27-F of the [facility] Public Health law. If you continue you may have access to information: Regarding HIV / AIDS; Provided by facilities licensed or operated by the [facility] Office of Mental Health; or Provided by the [facility] Office for People With Developmental Disabilities. If such information is present, then the following [facility] mandated warning applies: This information has been disclosed to you from confidential records which are protected by state law. State law prohibits you from making any further disclosure of this information without the specific written consent of the person to whom it pertains, or as otherwise permitted by law. Any unauthorized further disclosure in violation of state law may result in a fine or [place] [facility] sentence or both. A general authorization for the release of medical or other information is NOT sufficient authorization for further disc losure. Allergies and Adverse Reactions Type Description Substance Reaction Status Data Source(s ) No Known Environmental Allergies No Known Environmental [facility] No Known Food Allergies No Known Food Allergies [facility] BRANDNAME MOTRIN MOTRIN fever, nausea and vomiting. [facility] Drug allergy Ibuprofen Ibuprofen Nausea/Vomiting Active eCW1 ( [facility]) Family History Family Member Name Family Member Gender Family Member Status Date o f Status Description Data Source(s) Unknown Unknown Problem MEDENT ([facility]) Encounters Encounter Providers Location Date Indications Data Source(s ) Emergency Attender: JOAQUIN ABDUL MDConsultant: ABIOLA Brady MD 11/10/2020 02:26:00 AM EST - 11/10/2020 08:04:00 AM [facility] Patient discharged. Outpatient Attender: HUMBERTO LUX 11/05/2020 11:30:[address] [facility] [address] [address] 10/31/2020 12:00:00 AM EST eCW1 ([facility]) Outpatient Attender: HUMBERTO LUX 10/15/2020 03:10:00 PM ES [facility] Admission cancelled. Disregard status an d admitted date. Outpatient Attender: KRYS PARADA NP 09/27/2020 01:00:0 0 PM EST [facility] [place] [address] [address] 09/19/2020 12:00:00 AM EST eCW1 ([facility]) Outpatient Attender: HUMBERTO LUX 08/23/2020 03:28:00 PM ES [facility] Outpatient Attender: Alina CONKLIN Main Office 08/09/2020 08:15:0 0 AM EDT MEDENT ([facility] [place] [address] [address] 08/09/2020 12:00:00 AM EDT eCW1 ([facility]) Outpatient Attender: HUMBERTO LUX 08/08/2020 02:00:00 PM ED [facility] [place] [address] [address] 08/08/2020 12:00:00 AM EDT eCW1 ([facility]) Outpatient Attender: KRYS PARADA NP 07/29/2020 03:25:0 0 PM EDT [facility] Outpatient Attender: HUMBERTO LUX 07/29/2020 03:25:00 PM ED [facility] Outpatient Attender: HUMBERTO LUX 06/28/2020 03:57:00 PM ED [facility] Outpatient Attender: HUMBERTO LUX 06/21/2020 02:38:00 PM ED [facility] Outpatient Attender: HUMBERTO LUX 05/31/2020 02:28:00 PM ED [facility] Outpatient Attender: HUMBERTO LUX 05/20/2020 03:32:00 PM ED [facility] Outpatient Attender: HUMBERTO LUX 05/03/2020 02:35:00 PM ED [facility] [place] [address] [address] 04/26/2020 12:00:00 AM EDT eCW1 ([facility]) [facility] [address] [address] 04/11/2020 12:00:00 AM EDT eCW1 ([facility]) Outpatient Attender: HUMBERTO LUX 04/10/2020 01:55:00 PM ED [facility] Outpatient Attender: KRYS PARADA NP 04/08/2020 03:52:0 0 PM EDT [facility] Outpatient Attender: HUMBERTO LUX 04/04/2020 04:21:00 PM ED [facility] Outpatient Attender: HUMBERTO LUX 03/27/2020 03:30:00 PM ED [facility] Outpatient Attender: Jordan HAINES 03/19/2020 07:45:30 PM EDT [facility] Outpatient Attender: KRYS PARADA NP [facility]06[facility]2020 [facility]: HUMBERTO LUX 03/01/2020 04:19:00 PM ED [facility] Outpatient Attender: HUMBERTO LUX 02/22/2020 03:27:00 PM ED [facility] Outpatient Attender: HUMBERTO LUX 02/15/2020 03:06:00 PM ED [facility] Outpatient Attender: KRYS PARADA NP 02/14/2020 [facility]:24[facility]: HUMBERTO LUX 02/08/2020 04:12:00 PM ED [facility] Outpatient Attender: HUMBERTO LUX 02/01/2020 02:47:00 PM ED [facility] Outpatient Attender: HUMBERTO LUX 01/25/2020 01:42:00 PM ED [facility] Outpatient Attender: KRYS PARADA NP 01/18/2020 [facility]49[facility]: KRYS PARADA NP 01/04/2020 02:55[facility] Referrer: SADE LOPEZ MD 12/11/2019 02:56:00 PM EST [facility] [address] [address] 12/07/2019 12:00:00 AM EST eCW1 ([facility]) [facility] [address] [address] 12/05/2019 12:00:00 AM EST [facility] Outpatient Attender: Juan Carlos Pichardo MD Physical Therapy 12:30:00 PM EST MEDENT ([facility]) [facility] [address] [facility] [place] [address] 11/22/2019 12:00:00 AM EST [facility] [address] [address] 11/17/2019 12:00:00 AM EST eCW1 ([facility]) [facility] [address] [address] 11/16/2019 12:00:00 AM EST eCW1 ([facility]) Outpatient Attender: Dory Jo SALES AND OPERATIONS TRAINEE Main Office 10/24/2019 02:30:00 PM EST [facility] ([facility] [address] [address] 10/12/2019 12:00:00 AM EST eCW1 ([facility]) [facility] [address] [address] 09/28/2019 12:00:00 AM EST eCW1 ([facility]) Outpatient Attender: MARÍA TONG KNITTER HELPER 09/18/2019 10:00:00 AM [facility] Outpatient Attender: KRYS PARADA NP 09/11/2019 02:00:0 0 PM [facility] Outpatient Attender: MARÍA TONG KNITTER HELPER 09/11/2019 02:00:00 PM [facility] Outpatient Attender: ABIOLA CLAROS MDConsultant: ABIOLA Brady MD 09/11/2019 07:49:00 AM [facility] Outpatient Attender: KRYS PARADA NP 08/16/2019 10:15:0 0 AM [facility] Outpatient Attender: MARÍA TONG KNITTER HELPER 08/16/2019 10:13:00 AM [facility] Outpatient Attender: KRYS PARADA NP 07/25/2019 02:41:0 0 PM [facility] Outpatient Attender: MARÍA TONG LCSW 06/27/2019 09:56:00 AM [facility] Outpatient Attender: MARÍA TONG LCSW 06/20/2019 10:04:00 AM [facility] Outpatient Attender: KRYS PARADA NP 06/06/2019 08:58:0 0 AM [facility] Outpatient Attender: MARÍA TONG LCSW 05/16/2019 02:03:00 PM [facility] Outpatient Attender: KRYS PARADA NP 05/08/2019 03:17:0 0 PM [facility] Outpatient Attender: MARÍA TONG LCSW 05/08/2019 01:56:00 PM [facility] Outpatient Attender: MARÍA TONG KNITTER HELPER 03/28/2019 11:35:00 AM [facility] Outpatient Attender: KRYS PARADA NP 02/28/2019 11:06:0 0 AM [facility] Outpatient Attender: MARÍA TONG KNITTER HELPER 02/07/2019 10:25:00 AM [facility] Outpatient Attender: KRYS PARADA NP 02/07/2019 10:24:0 0 AM [facility] Outpatient Attender: MARÍA TONG KNITTER HELPER 01/17/2019 11:18:00 AM [facility] Outpatient Attender: MARÍA TONG KNITTER HELPER 01/10/2019 11:12:00 AM [facility] Outpatient Attender: MARÍA TONG KNITTER HELPER 01/03/2019 12:52:00 PM [facility] Medications Medication Brand Name Start Date Product Form Dose Route Admi nistrative Instructions Pharmacy Instructions Status Indications Reaction Description Data Source(s) 10-325 mg 10/14/2020 12:00:00 AM EST tablet 180 TAKE ONE TABLET BY MOUTH EVERY 4 TO 6 HOURS NEEDED FOR PAIN MAXIMUM DAILY DOSE = SIX TABLETS TAKE ONE TABLET BY MOUTH EVERY 4 TO 6 HOURS NEEDED FOR PAIN MAXIMUM DAILY DOSE = SIX TABLETS SOLD: 10/14/2020 [facility] 325 mg (65 mg iron) 10/10/2020 12:00:00 AM EST tablet 15 TAKE ONE TABLET BY MOUTH EVERY OTHER DAY TAKE ONE TABLET BY MOUTH EVERY OTHER DAY SOLD: 10/10/2020 [facility] 10 mg 10/10/2020 12:00:00 AM EST tablet 30 TAKE ONE TABLET BY MOUTH EVERY DAY TAKE ONE TABLET BY MOUTH EVERY DAY SOLD: 10/10/2020 [facility] Trazodone Hydrochloride 100 MG Oral Tablet TRAZODONE HCL 10/10/2020 12:00:00 AM EST tablet 45 TAKE 1 & 1/2 TABLETS BY MOUT H AT BEDTIME TAKE 1 & 1/2 TABLETS BY MOUTH AT BEDTIME SOLD: 10/10/2020 [facility] 10 mg 09/19/2020 12:00:00 AM EST tablet 90 TAKE ONE TO THREE TABLETS BY MOUTH EVERY 6 HOURS NEEDED FOR ANXIETY TAKE ONE TO THREE TABLETS BY MOUTH EVERY 6 HOURS NEEDED FOR ANXIETY SOLD: 10/30/2020 [facility] 10 mg 09/19/2020 12:00:00 AM EST tablet 90 TAKE ONE TO THREE TABLETS BY MOUTH EVERY 6 HOURS NEEDED FOR ANXIETY TAKE ONE TO THREE TABLETS BY MOUTH EVERY 6 HOURS NEEDED FOR ANXIETY SOLD: 09/19/2020 [facility] 10 mg 09/19/2020 12:00:00 AM EST tablet 90 TAKE ONE TO THREE TABLETS BY MOUTH EVERY 6 HOURS NEEDED FOR ANXIETY TAKE ONE TO THREE TABLETS BY MOUTH EVERY 6 HOURS NEEDED FOR ANXIETY SOLD: 10/10/2020 [facility] 10-325 mg 09/13/2020 12:00:00 AM EST tablet 180 TAKE ONE TABLET BY MOUTH EVERY 4 TO 6 HOURS NEEDED FOR PAIN MAXIMUM DAILY DOSE = SIX TABLETS TAKE ONE TABLET BY MOUTH EVERY 4 TO 6 HOURS NEEDED FOR PAIN MAXIMUM DAILY DOSE = SIX TABLETS SOLD: 09/13/2020 [facility] 24 HR Bupropion Hydrochloride 150 MG Extended Release Oral T ablet BUPROPION HCL 09/11/2020 12:00:00 AM EST tablet extended release 24 hr 30 TAKE ONE TABLET BY MOUTH EVERY MORNING TAKE ONE TABLET BY MOUTH EVERY MORNING SOLD: 09/12/2020 [facility] 24 HR Bupropion Hydrochloride 150 MG Extended Release Oral T ablet BUPROPION HCL 09/11/2020 12:00:00 AM EST tablet extended release 24 hr 30 TAKE ONE TABLET BY MOUTH EVERY MORNING TAKE ONE TABLET BY MOUTH EVERY MORNING SOLD: 10/10/2020 [facility] 20 mg 08/19/2020 12:00:00 AM EST tablet 120 TAKE ONE TABLET BY MOUTH FOUR TIMES A DAY TAKE ONE TABLET BY MOUTH FOUR TIMES A DAY SOLD: 08/23/2020 [facility] 20 mg 08/19/2020 12:00:00 AM EST tablet 120 TAKE ONE TABLET BY MOUTH FOUR TIMES A DAY TAKE ONE TABLET BY MOUTH FOUR TIMES A DAY SOLD: 09/26/2020 [facility] 20 mg 08/19/2020 12:00:00 AM EST tablet 120 TAKE ONE TABLET BY MOUTH FOUR TIMES A DAY TAKE ONE TABLET BY MOUTH FOUR TIMES A DAY SOLD: 10/26/2020 [facility] 40 mg 08/17/2020 12:00:00 AM EST tablet 90 TAKE ONE TABLET BY MOUTH EVERY EVENING TAKE ONE TABLET BY MOUTH EVERY EVENING SOLD: 08/17/2020 [facility] 100 mcg/actuation 08/15/2020 12:00:00 AM EST blister with de vice 30 INHALE 1 PUFF BY MOUTH ONCE DAILY INHALE 1 PUFF BY MOUTH ONCE DAILY SOLD: 10/26/2020 [facility] 100 mcg/actuation 08/15/2020 12:00:00 AM EST blister with de vice 30 INHALE 1 PUFF BY MOUTH ONCE DAILY INHALE 1 PUFF BY MOUTH ONCE DAILY SOLD: 08/17/2020 [facility] 100 mcg/actuation 08/15/2020 12:00:00 AM EST blister with de vice 30 INHALE 1 PUFF BY MOUTH ONCE DAILY INHALE 1 PUFF BY MOUTH ONCE DAILY SOLD: 09/19/2020 [facility] 30 ACTUAT fluticasone furoate 0.1 MG/ACT UAT Dry Powder Inhaler [Arnuity] Arnuity Ellipta 100 MCG/ACT Arnuity Ellipta 100 MCG/ACT 08/14/2020 12:00:00 AM EST 1.0 {puff} active Arnuity Ellipta 100 M CG/ACT eCW1 ([facility]) 30 ACTUAT fluticasone furoate 0.1 MG/ACT UAT Dry Powder Inhaler [Arnuity] Arnuity Ellipta 100 MCG/ACT Arnuity Ellipta 100 MCG/ACT 08/14/2020 12:00:00 AM EST 1.0 {puff} active Arnuity Ellipta 100 M CG/ACT eCW1 ([facility]) 30 ACTUAT fluticasone furoate 0.1 MG/ACT UAT Dry Powder Inhaler [Arnuity] Arnuity Ellipta 100 MCG/ACT Arnuity Ellipta 100 MCG/ACT 08/14/2020 12:00:00 AM EST 1.0 {puff} active Arnuity Ellipta 100 M CG/ACT eCW1 ([facility]) 30 ACTUAT fluticasone furoate 0.1 MG/ACT UAT Dry Powder Inhaler [Arnuity] Arnuity Ellipta 100 MCG/ACT Arnuity Ellipta 100 MCG/ACT 08/14/2020 12:00:00 AM EST 1.0 {puff} active Arnuity Ellipta 100 M CG/ACT eCW1 ([facility]) 28 ACTUAT Fluticasone propionate 0.1 MG/ ACTUAT Dry Powder Inhaler [Flovent] Flovent Diskus 100 MCG/BLIST Flovent Diskus 100 MCG/BLIST 08/08/2020 12:00:00 AM EDT 1.0 {puff} active Flovent Disku s 100 MCG/BLIST eCW1 ([facility]) 28 ACTUAT Fluticasone propionate 0.1 MG/ ACTUAT Dry Powder Inhaler [Flovent] Flovent Diskus 100 MCG/BLIST Flovent Diskus 100 MCG/BLIST 08/08/2020 12:00:00 AM EDT 1.0 {puff} active Flovent Disku s 100 MCG/BLIST eCW1 ([facility]) 12 HR Bupropion Hydrochloride 150 MG Extended Release Oral Tablet Bupropion Hydrochloride ER (SR) 08/08/2020 12:00:00 AM EDT ORAL a ctive MEDENT ([facility] Hydroxyzine Hydrochloride 10 MG Oral Tablet Hydroxyzine HCL 08/08/2020 12:00:00 AM EDT ORAL active MEDENT ([facility]) ferrous sulfate 325 MG Delayed Release Oral Tablet Ferrous S ulfate 08/08/2020 12:00:00 AM EDT ORAL active M EDENT ([facility] Acetaminophen 325 MG / Hydrocodone Bitartrate 10 MG Or al Tablet Hydrocodone-Acetaminophen 08/08/2020 12:00:00 AM EDT ORAL active MEDENT ([facility] Baclofen 20 MG Oral Tablet Baclofen 08/08/2020 12:00:00 AM EDT ORAL active MEDENT ([facility]) 10-325 mg 07/16/2020 12:00:00 AM EDT tablet 180 TAKE ONE TABLET BY MOUTH EVERY 4 TO 6 HOURS NEEDED FOR PAIN, MAXIMUM DAILY DOSE = SIX TABLETS TAKE ONE TABLET BY MOUTH EVERY 4 TO 6 HOURS NEEDED FOR PAIN, MAXIMUM DAILY DOSE = SIX TABLETS SOLD: 07/16/2020 [facility] 10 mg 07/05/2020 12:00:00 AM EDT tablet 30 TAKE ONE TABLET BY MOUTH EVERY DAY TAKE ONE TABLET BY MOUTH EVERY DAY SOLD: 09/12/2020 [facility] Trazodone Hydrochloride 100 MG Oral Tablet TRAZODONE HCL 07/05/2020 12:00:00 AM EDT tablet 45 TAKE ONE AND ONE-HALF TABLET S BY MOUTH EVERY DAY AT BEDTIME TAKE ONE AND ONE-HALF TABLETS BY MOUTH EVERY DAY AT BEDTIME SOLD: 07/05/2020 [facility] Trazodone Hydrochloride 100 MG Oral Tablet TRAZODONE HCL 07/05/2020 12:00:00 AM EDT tablet 45 TAKE ONE AND ONE-HALF TABLET S BY MOUTH EVERY DAY AT BEDTIME TAKE ONE AND ONE-HALF TABLETS BY MOUTH EVERY DAY AT BEDTIME SOLD: 09/12/2020 [facility] 10 mg 07/05/2020 12:00:00 AM EDT tablet 30 TAKE ONE TABLET BY MOUTH EVERY DAY TAKE ONE TABLET BY MOUTH EVERY DAY SOLD: 07/05/2020 [facility] 10 mg 07/04/2020 12:00:00 AM EDT tablet 90 TAKE 1 TO 3 TABLETS EVERY 6 HOURS NEEDED FOR ANXIETY TAKE 1 TO 3 TABLETS EVERY 6 HOURS NEEDED FOR ANXIET Y SOLD: 07/05/2020 [facility] 10 mg 07/04/2020 12:00:00 AM EDT tablet 90 TAKE 1 TO 3 TABLETS EVERY 6 HOURS NEEDED FOR ANXIETY TAKE 1 TO 3 TABLETS EVERY 6 HOURS NEEDED FOR ANXIET Y SOLD: 07/29/2020 [facility] 10 mg 07/04/2020 12:00:00 AM EDT tablet 90 TAKE 1 TO 3 TABLETS EVERY 6 HOURS NEEDED FOR ANXIETY TAKE 1 TO 3 TABLETS EVERY 6 HOURS NEEDED FOR ANXIET Y SOLD: 08/23/2020 [facility] 5 mg 06/26/2020 12:00:00 AM EDT tablet 90 TAKE ONE TABLET BY MOUTH EVERY DAY TAKE ONE TABLET BY MOUTH EVERY DAY SOLD: 09/26/2020 [facility] 40 mg 06/26/2020 12:00:00 AM EDT tablet 90 TAKE ONE TABLET BY MOUTH EVERY DAY TAKE ONE TABLET BY MOUTH EVERY DAY SOLD: 09/26/2020 [facility] 5 mg 06/26/2020 12:00:00 AM EDT tablet 90 TAKE ONE TABLET BY MOUTH EVERY DAY TAKE ONE TABLET BY MOUTH EVERY DAY SOLD: 06/28/2020 [facility] 40 mg 06/26/2020 12:00:00 AM EDT tablet 90 TAKE ONE TABLET BY MOUTH EVERY DAY TAKE ONE TABLET BY MOUTH EVERY DAY SOLD: 06/28/2020 [facility] 10-325 mg 06/18/2020 12:00:00 AM EDT tablet 180 TAKE ONE TABLET BY MOUTH EVERY 4-6 HOURS NEEDED FOR PAIN MAXIMUM DAILY DOSE = 6 TABLETS TAKE ONE TABLET BY MOUTH EVERY 4-6 HOURS NEEDED FOR PAIN MAXIMUM DAILY DOSE = 6 TABLETS SOLD: 06/18/2020 [facility] 90 mcg/actuation 06/12/2020 12:00:00 AM EDT HFA aerosol inha ler 18 INHALE TWO PUFFS BY MOUTH EVERY 4 TO 6 HOURS INHALE TWO PUFFS BY MOUTH EVERY 4 TO 6 HOURS SOLD: 06/15/2020 [facility] 90 mcg/actuation 06/12/2020 12:00:00 AM EDT HFA aerosol inha ler 18 INHALE TWO PUFFS BY MOUTH EVERY 4 TO 6 HOURS INHALE TWO PUFFS BY MOUTH EVERY 4 TO 6 HOURS SOLD: 07/11/2020 [facility] INHALER, ASSIST DEVICES 06/11/2020 12:00:00 AM EDT spacer 1 USE DIRECTED WITH INHALER USE DIRECTED WITH INHALER SOLD: 06/15/2020 [facility] 24 HR Bupropion Hydrochloride 150 MG Extended Release Oral T ablet BUPROPION HCL 06/05/2020 12:00:00 AM EDT tablet extended release 24 hr 30 TAKE ONE TABLET BY MOUTH EVERY MORNING TAKE ONE TABLET BY MOUTH EVERY MORNING SOLD: 07/11/2020 [facility] 24 HR Bupropion Hydrochloride 150 MG Extended Release Oral T ablet BUPROPION HCL 06/05/2020 12:00:00 AM EDT tablet extended release 24 hr 30 TAKE ONE TABLET BY MOUTH EVERY MORNING TAKE ONE TABLET BY MOUTH EVERY MORNING SOLD: 06/08/2020 [facility] 10-325 mg 05/20/2020 12:00:00 AM EDT tablet 180 TAKE ONE TABLET BY MOUTH EVERY 4 TO 6 HOURS NEEDED FOR PAIN MAXIMUM DAILY DOSE = SIX TABLETS TAKE ONE TABLET BY MOUTH EVERY 4 TO 6 HOURS NEEDED FOR PAIN MAXIMUM DAILY DOSE = SIX TABLETS SOLD: 05/20/2020 [facility] 10-325 mg 04/19/2020 12:00:00 AM EDT tablet 180 TAKE ONE TABLET BY MOUTH EVERY 4 TO 6 HOURS NEEDED FOR PAIN MAXIMUM DAILY DOSE = SIX TABLETS TAKE ONE TABLET BY MOUTH EVERY 4 TO 6 HOURS NEEDED FOR PAIN MAXIMUM DAILY DOSE = SIX TABLETS SOLD: 04/19/2020 [facility] 325 mg (65 mg iron) 04/06/2020 12:00:00 AM EDT tablet 15 TAKE ONE TABLET BY MOUTH EVERY OTHER DAY TAKE ONE TABLET BY MOUTH EVERY OTHER DAY SOLD: 06/18/2020 [facility] 325 mg (65 mg iron) 04/06/2020 12:00:00 AM EDT tablet 15 TAKE ONE TABLET BY MOUTH EVERY OTHER DAY TAKE ONE TABLET BY MOUTH EVERY OTHER DAY SOLD: 05/20/2020 [facility] 325 mg (65 mg iron) 04/06/2020 12:00:00 AM EDT tablet 15 TAKE ONE TABLET BY MOUTH EVERY OTHER DAY TAKE ONE TABLET BY MOUTH EVERY OTHER DAY SOLD: 09/12/2020 [facility] 325 mg (65 mg iron) 04/06/2020 12:00:00 AM EDT tablet 15 TAKE ONE TABLET BY MOUTH EVERY OTHER DAY TAKE ONE TABLET BY MOUTH EVERY OTHER DAY SOLD: 07/16/2020 [facility] 325 mg (65 mg iron) 04/06/2020 12:00:00 AM EDT tablet 15 TAKE ONE TABLET BY MOUTH EVERY OTHER DAY TAKE ONE TABLET BY MOUTH EVERY OTHER DAY SOLD: 04/19/2020 [facility] Trazodone Hydrochloride 100 MG Oral Tablet TRAZODONE HCL 04/05/2020 12:00:00 AM EDT tablet 45 TAKE 1 & 1/2 TABLETS BY MOUT H ONCE DAILY AT BEDTIME TAKE 1 & 1/2 TABLETS BY MOUTH ONCE DAILY AT BEDTIME SOLD: 04/06/2020 [facility] 10 mg 04/05/2020 12:00:00 AM EDT tablet 30 TAKE ONE TABLET BY MOUTH EVERY DAY TAKE ONE TABLET BY MOUTH EVERY DAY SOLD: 06/08/2020 [facility] 10 mg 04/05/2020 12:00:00 AM EDT tablet 30 TAKE ONE TABLET BY MOUTH EVERY DAY TAKE ONE TABLET BY MOUTH EVERY DAY SOLD: 04/06/2020 [facility] 10 mg 04/05/2020 12:00:00 AM EDT tablet 30 TAKE ONE TABLET BY MOUTH EVERY DAY TAKE ONE TABLET BY MOUTH EVERY DAY SOLD: 05/09/2020 [facility] Trazodone Hydrochloride 100 MG Oral Tablet TRAZODONE HCL 04/05/2020 12:00:00 AM EDT tablet 45 TAKE 1 & 1/2 TABLETS BY MOUT H ONCE DAILY AT BEDTIME TAKE 1 & 1/2 TABLETS BY MOUTH ONCE DAILY AT BEDTIME SOLD: 06/08/2020 [facility] Trazodone Hydrochloride 100 MG Oral Tablet TRAZODONE HCL 04/05/2020 12:00:00 AM EDT tablet 45 TAKE 1 & 1/2 TABLETS BY MOUT H ONCE DAILY AT BEDTIME TAKE 1 & 1/2 TABLETS BY MOUTH ONCE DAILY AT BEDTIME SOLD: 05/09/2020 [facility] 40 mg 03/26/2020 12:00:00 AM EDT tablet 30 TAKE ONE TABLET BY MOUTH EVERY DAY TAKE ONE TABLET BY MOUTH EVERY DAY SOLD: 05/27/2020 [facility] 40 mg 03/26/2020 12:00:00 AM EDT tablet 30 TAKE ONE TABLET BY MOUTH EVERY DAY TAKE ONE TABLET BY MOUTH EVERY DAY SOLD: 04/27/2020 [facility] 40 mg 03/26/2020 12:00:00 AM EDT tablet 30 TAKE ONE TABLET BY MOUTH EVERY DAY TAKE ONE TABLET BY MOUTH EVERY DAY SOLD: 03/29/2020 [facility] 10-325 mg 03/22/2020 12:00:00 AM EDT tablet 180 TAKE ONE TABLET BY MOUTH EVERY 4 TO 6 HOURS NEEDED FOR PAIN , MAXIMUM DAILY DOSE = 6 TABLETS TAKE ONE TABLET BY MOUTH EVERY 4 TO 6 HOURS NEEDED FOR PAIN , MAXIMUM DAILY DOSE = 6 TABLETS SOLD: 03/22/2020 [facility] 5 mg 03/09/2020 12:00:00 AM EDT tablet 180 TAKE TWO TABLETS BY MOUTH EVERY 4 HOURS MAXIMUM DAILY DOSE = TWELVE TABLETS TAKE TWO TABLETS BY MOUTH EVERY 4 HOURS MAXIMUM DAILY DOSE = TWELVE TABLETS SOLD: 03/09/2020 [facility] 5 mg 03/08/2020 12:00:00 AM EDT tablet 30 TAKE ONE TABLET BY MOUTH EVERY DAY TAKE ONE TABLET BY MOUTH EVERY DAY SOLD: 04/06/2020 [facility] 5 mg 03/08/2020 12:00:00 AM EDT tablet 30 TAKE ONE TABLET BY MOUTH EVERY DAY TAKE ONE TABLET BY MOUTH EVERY DAY SOLD: 03/09/2020 [facility] 24 HR Bupropion Hydrochloride 150 MG Extended Release Oral T ablet BUPROPION HCL 03/07/2020 12:00:00 AM EDT tablet extended release 24 hr 30 TAKE ONE TABLET BY MOUTH EVERY MORNING TAKE ONE TABLET BY MOUTH EVERY MORNING SOLD: 05/09/2020 [facility] 24 HR Bupropion Hydrochloride 150 MG Extended Release Oral T ablet BUPROPION HCL 03/07/2020 12:00:00 AM EDT tablet extended release 24 hr 30 TAKE ONE TABLET BY MOUTH EVERY MORNING TAKE ONE TABLET BY MOUTH EVERY MORNING SOLD: 04/06/2020 [facility] 24 HR Bupropion Hydrochloride 150 MG Extended Release Oral T ablet BUPROPION HCL 03/07/2020 12:00:00 AM EDT tablet extended release 24 hr 30 TAKE ONE TABLET BY MOUTH EVERY MORNING TAKE ONE TABLET BY MOUTH EVERY MORNING SOLD: 03/09/2020 [facility] 10 mg 03/07/2020 12:00:00 AM EDT tablet 90 TAKE 1 TO 3 TABLETS BY MOUTH EVERY 6 HOURS NEEDED FOR ANXIETY TAKE 1 TO 3 TABLETS BY MOUTH EVERY 6 GLADYS RS NEEDED FOR ANXIETY SOLD: 05/13/2020 [facility] 10 mg 03/07/2020 12:00:00 AM EDT tablet 90 TAKE 1 TO 3 TABLETS BY MOUTH EVERY 6 HOURS NEEDED FOR ANXIETY TAKE 1 TO 3 TABLETS BY MOUTH EVERY 6 GLADYS RS NEEDED FOR ANXIETY SOLD: 04/23/2020 [facility] Hydroxyzine Hydrochloride 10 MG Oral Tablet HYDROXYZINE HCL 03/07/2020 12:00:00 AM EDT tablet 90 TAKE 1 TO 3 TABL ETS BY MOUTH EVERY 6 HOURS NEEDED FOR ANXIETY TAKE 1 TO 3 TABLETS BY MOUTH EVERY 6 HOURS NEEDED F OR ANXIETY SOLD: 03/09/2020 [facility] 5 mg 02/24/2020 12:00:00 AM EDT tablet 180 TAKE TWO TABLETS BY MOUTH EVERY 4 HOURS MAXIMUM DAILY DOSE = TWELVE TABLETS TAKE TWO TABLETS BY MOUTH EVERY 4 HOURS MAXIMUM DAILY DOSE = TWELVE TABLETS SOLD: 02/24/2020 [facility] 20 mg 02/23/2020 12:00:00 AM EDT tablet 120 TAKE ONE TABLET BY MOUTH FOUR TIMES A DAY TAKE ONE TABLET BY MOUTH FOUR TIMES A DAY SOLD: 03/22/2020 [facility] 20 mg 02/23/2020 12:00:00 AM EDT tablet 120 TAKE ONE TABLET BY MOUTH FOUR TIMES A DAY TAKE ONE TABLET BY MOUTH FOUR TIMES A DAY SOLD: 05/20/2020 [facility] 20 mg 02/23/2020 12:00:00 AM EDT tablet 120 TAKE ONE TABLET BY MOUTH FOUR TIMES A DAY TAKE ONE TABLET BY MOUTH FOUR TIMES A DAY SOLD: 04/19/2020 [facility] 20 mg 02/23/2020 12:00:00 AM EDT tablet 120 TAKE ONE TABLET BY MOUTH FOUR TIMES A DAY TAKE ONE TABLET BY MOUTH FOUR TIMES A DAY SOLD: 06/18/2020 [facility] 20 mg 02/23/2020 12:00:00 AM EDT tablet 120 TAKE ONE TABLET BY MOUTH FOUR TIMES A DAY TAKE ONE TABLET BY MOUTH FOUR TIMES A DAY SOLD: 02/24/2020 [facility] 20 mg 02/23/2020 12:00:00 AM EDT tablet 120 TAKE ONE TABLET BY MOUTH FOUR TIMES A DAY TAKE ONE TABLET BY MOUTH FOUR TIMES A DAY SOLD: 07/16/2020 [facility] 40 mg 02/14/2020 12:00:00 AM EDT tablet 90 TAKE ONE TABLET BY MOUTH EVERY EVENING TAKE ONE TABLET BY MOUTH EVERY EVENING SOLD: 02/20/2020 [facility] 40 mg 02/14/2020 12:00:00 AM EDT tablet 90 TAKE ONE TABLET BY MOUTH EVERY EVENING TAKE ONE TABLET BY MOUTH EVERY EVENING SOLD: 05/20/2020 [facility] 5 mg 02/10/2020 12:00:00 AM EDT tablet 180 TAKE TWO TABLETS BY MOUTH EVERY 4 HOURS, MAXIMUM DAILY DOSE = TWELVE TABLETS TAKE TWO TABLETS BY MOUTH EVERY 4 HOURS, MAXIMUM DAILY DOSE = TWELVE TABLETS SOLD: 02/10/2020 [facility] 50 mcg/actuation 02/01/2020 12:00:00 AM EDT spray,suspension 16 SPRAY ONE SPRAY IN EACH NOSTRIL EVERY DAY SPRAY ONE SPRAY IN EACH NOSTRIL EVERY DAY SOLD: 04/06/2020 [facility] 50 mcg/actuation 02/01/2020 12:00:00 AM EDT spray,suspension 16 SPRAY ONE SPRAY IN EACH NOSTRIL EVERY DAY SPRAY ONE SPRAY IN EACH NOSTRIL EVERY DAY SOLD: 02/04/2020 [facility] 50 mcg/actuation 02/01/2020 12:00:00 AM EDT spray,suspension 16 SPRAY ONE SPRAY IN EACH NOSTRIL EVERY DAY SPRAY ONE SPRAY IN EACH NOSTRIL EVERY DAY SOLD: 03/09/2020 [facility] CPAP 01/30/2020 12:00:00 AM EDT active MEDENT ([facility]) 5 mg 01/26/2020 12:00:00 AM EDT tablet 180 TAKE TWO TABLETS BY MOUTH EVERY 4 HOURS , MAXIMUM DAILY DOSE = 12 TABLETS TAKE TWO TABLETS BY MOUTH EVERY 4 HOURS , MAXIMUM DAILY DOSE = 12 TABLETS SOLD: 01/27/2020 [facility] 10 mg 01/19/2020 12:00:00 AM EDT tablet 90 TAKE 1-3 TABLETS BY MOUTH EVERY 6 HOURS NEEDED FOR ANXIETY TAKE 1-3 TABLETS BY MOUTH EVERY 6 HOURS NEEDED FOR ANXIETY SOLD: 06/08/2020 [facility] 10 mg 01/19/2020 12:00:00 AM EDT tablet 90 TAKE 1-3 TABLETS BY MOUTH EVERY 6 HOURS NEEDED FOR ANXIETY TAKE 1-3 TABLETS BY MOUTH EVERY 6 HOURS NEEDED FOR ANXIETY SOLD: 01/19/2020 [facility] 5 mg 01/13/2020 12:00:00 AM EDT tablet 180 TAKE TWO TABLETS BY MOUTH EVERY 4 HOURS , MAXIMUM DAILY DOSE = 12 TABLETS TAKE TWO TABLETS BY MOUTH EVERY 4 HOURS , MAXIMUM DAILY DOSE = 12 TABLETS SOLD: 01/13/2020 [facility] 10 mg 01/08/2020 12:00:00 AM EDT tablet 30 TAKE ONE TABLET BY MOUTH EVERY DAY TAKE ONE TABLET BY MOUTH EVERY DAY SOLD: 03/09/2020 [facility] 10 mg 01/08/2020 12:00:00 AM EDT tablet 30 TAKE ONE TABLET BY MOUTH EVERY DAY TAKE ONE TABLET BY MOUTH EVERY DAY SOLD: 01/13/2020 [facility] 10 mg 01/08/2020 12:00:00 AM EDT tablet 30 TAKE ONE TABLET BY MOUTH EVERY DAY TAKE ONE TABLET BY MOUTH EVERY DAY SOLD: 02/10/2020 [facility] Trazodone Hydrochloride 100 MG Oral Tablet TRAZODONE HCL 01/05/2020 12:00:00 AM EDT tablet 45 TAKE 1 & 1/2 TABLETS BY MOUT H AT BEDTIME TAKE 1 & 1/2 TABLETS BY MOUTH AT BEDTIME SOLD: 01/13/2020 [facility] Trazodone Hydrochloride 100 MG Oral Tablet TRAZODONE HCL 01/05/2020 12:00:00 AM EDT tablet 45 TAKE 1 & 1/2 TABLETS BY MOUT H AT BEDTIME TAKE 1 & 1/2 TABLETS BY MOUTH AT BEDTIME SOLD: 02/10/2020 [facility] Trazodone Hydrochloride 100 MG Oral Tablet TRAZODONE HCL 01/05/2020 12:00:00 AM EDT tablet 45 TAKE 1 & 1/2 TABLETS BY MOUT H AT BEDTIME TAKE 1 & 1/2 TABLETS BY MOUTH AT BEDTIME SOLD: 03/09/2020 [facility] 5 mg 12/30/2019 12:00:00 AM EDT tablet 180 TAKE 2 TABLETS BY MOUTH EVERY 4 HOURS MAX = 12 TABS/DAY TAKE 2 TABLETS BY MOUTH EVERY 4 HOURS MAX = 12 TABS/DA Y SOLD: 12/30/2019 [facility] 24 HR Bupropion Hydrochloride 150 MG Extended Release Oral T ablet BUPROPION HCL 12/19/2019 12:00:00 AM EDT tablet extended release 24 hr 30 TAKE ONE TABLET BY MOUTH EVERY MORNING TAKE ONE TABLET BY MOUTH EVERY MORNING SOLD: 01/27/2020 [facility] 24 HR Bupropion Hydrochloride 150 MG Extended Release Oral T ablet BUPROPION HCL 12/19/2019 12:00:00 AM EDT tablet extended release 24 hr 30 TAKE ONE TABLET BY MOUTH EVERY MORNING TAKE ONE TABLET BY MOUTH EVERY MORNING SOLD: 02/23/2020 [facility] 150 mg 12/19/2019 12:00:00 AM EDT tablet extended release 24 hr 30 TAKE ONE TABLET BY MOUTH EVERY MORNING TAKE ONE TABLET BY MOUTH EVERY MORNING SOLD: 12/29/2019 [facility] 5 mg 12/16/2019 12:00:00 AM EST tablet 120 TAKE TWO TABLETS BY MOUTH EVERY 4 HOURS MAXIMUM DAILY DOSE = TWELVE TABLETS TAKE TWO TABLETS BY MOUTH EVERY 4 HOURS MAXIMUM DAILY DOSE = TWELVE TABLETS SOLD: 12/19/2019 [facility] 5 mg 12/16/2019 12:00:00 AM EST tablet 60 TAKE TWO TABLETS BY MOUTH EVERY 4 HOURS MAXIMUM DAILY DOSE = TWELVE TABLETS TAKE TWO TABLETS BY MOUTH EVERY 4 HOURS MAXIMUM DAILY DOSE = TWELVE TABLETS SOLD: 12/16/2019 [facility] 10 mg 11/20/2019 12:00:00 AM EST tablet extended release 24hr 30 TAKE ONE TABLET BY MOUTH EVERY DAY TAKE ONE TABLET BY MOUTH EVERY DAY SOLD: 06/08/2020 [facility] 10 mg 11/20/2019 12:00:00 AM EST tablet extended release 24hr 30 TAKE ONE TABLET BY MOUTH EVERY DAY TAKE ONE TABLET BY MOUTH EVERY DAY SOLD: 04/06/2020 [facility] 81 mg 11/20/2019 12:00:00 AM EST tablet,delayed release (DR/EC) 30 TAKE ONE TABLET BY MOUTH EVERY DAY TAKE ONE TABLET BY MOUTH EVERY DAY SOLD: 12/16/2019 [facility] 10 mg 11/20/2019 12:00:00 AM EST tablet extended release 24hr 30 TAKE ONE TABLET BY MOUTH EVERY DAY TAKE ONE TABLET BY MOUTH EVERY DAY SOLD: 09/12/2020 [facility] 10 mg 11/20/2019 12:00:00 AM EST tablet extended release 24hr 30 TAKE ONE TABLET BY MOUTH EVERY DAY TAKE ONE TABLET BY MOUTH EVERY DAY SOLD: 10/10/2020 [facility] 10 mg 11/20/2019 12:00:00 AM EST tablet extended release 24hr 30 TAKE ONE TABLET BY MOUTH EVERY DAY TAKE ONE TABLET BY MOUTH EVERY DAY SOLD: 02/10/2020 [facility] 81 mg 11/20/2019 12:00:00 AM EST tablet,delayed release (DR/EC) 30 TAKE ONE TABLET BY MOUTH EVERY DAY TAKE ONE TABLET BY MOUTH EVERY DAY SOLD: 09/12/2020 [facility] 81 mg 11/20/2019 12:00:00 AM EST tablet,delayed release (DR/EC) 30 TAKE ONE TABLET BY MOUTH EVERY DAY TAKE ONE TABLET BY MOUTH EVERY DAY SOLD: 06/08/2020 [facility] 10 mg 11/20/2019 12:00:00 AM EST tablet extended release 24hr 30 TAKE ONE TABLET BY MOUTH EVERY DAY TAKE ONE TABLET BY MOUTH EVERY DAY SOLD: 12/16/2019 [facility] 81 mg 11/20/2019 12:00:00 AM EST tablet,delayed release (DR/EC) 30 TAKE ONE TABLET BY MOUTH EVERY DAY TAKE ONE TABLET BY MOUTH EVERY DAY SOLD: 04/06/2020 [facility] 81 mg 11/20/2019 12:00:00 AM EST tablet,delayed release (DR/EC) 30 TAKE ONE TABLET BY MOUTH EVERY DAY TAKE ONE TABLET BY MOUTH EVERY DAY SOLD: 05/09/2020 [facility] 10 mg 11/20/2019 12:00:00 AM EST tablet extended release 24hr 30 TAKE ONE TABLET BY MOUTH EVERY DAY TAKE ONE TABLET BY MOUTH EVERY DAY SOLD: 11/20/2019 [facility] 81 mg 11/20/2019 12:00:00 AM EST tablet,delayed release (DR/EC) 30 TAKE ONE TABLET BY MOUTH EVERY DAY TAKE ONE TABLET BY MOUTH EVERY DAY SOLD: 03/09/2020 [facility] 10 mg 11/20/2019 12:00:00 AM EST tablet extended release 24hr 30 TAKE ONE TABLET BY MOUTH EVERY DAY TAKE ONE TABLET BY MOUTH EVERY DAY SOLD: 05/09/2020 [facility] 10 mg 11/20/2019 12:00:00 AM EST tablet extended release 24hr 30 TAKE ONE TABLET BY MOUTH EVERY DAY TAKE ONE TABLET BY MOUTH EVERY DAY SOLD: 07/11/2020 [facility] 10-325 mg 11/20/2019 12:00:00 AM EST tablet 180 TAKE ONE TABLET BY MOUTH EVERY 4 TO 6 HOURS NEEDED FOR PAIN MAXIMUM DAILY DOSE = SIX TABLETS TAKE ONE TABLET BY MOUTH EVERY 4 TO 6 HOURS NEEDED FOR PAIN MAXIMUM DAILY DOSE = SIX TABLETS SOLD: 11/20/2019 [facility] 81 mg 11/20/2019 12:00:00 AM EST tablet,delayed release (DR/EC) 30 TAKE ONE TABLET BY MOUTH EVERY DAY TAKE ONE TABLET BY MOUTH EVERY DAY SOLD: 02/10/2020 [facility] 81 mg 11/20/2019 12:00:00 AM EST tablet,delayed release (DR/EC) 30 TAKE ONE TABLET BY MOUTH EVERY DAY TAKE ONE TABLET BY MOUTH EVERY DAY SOLD: 10/10/2020 [facility] 81 mg 11/20/2019 12:00:00 AM EST tablet,delayed release (DR/EC) 30 TAKE ONE TABLET BY MOUTH EVERY DAY TAKE ONE TABLET BY MOUTH EVERY DAY SOLD: 11/20/2019 [facility] 81 mg 11/20/2019 12:00:00 AM EST tablet,delayed release (DR/EC) 30 TAKE ONE TABLET BY MOUTH EVERY DAY TAKE ONE TABLET BY MOUTH EVERY DAY SOLD: 01/13/2020 [facility] 81 mg 11/20/2019 12:00:00 AM EST tablet,delayed release (DR/EC) 30 TAKE ONE TABLET BY MOUTH EVERY DAY TAKE ONE TABLET BY MOUTH EVERY DAY SOLD: 07/11/2020 [facility] 10 mg 11/20/2019 12:00:00 AM EST tablet extended release 24hr 30 TAKE ONE TABLET BY MOUTH EVERY DAY TAKE ONE TABLET BY MOUTH EVERY DAY SOLD: 01/13/2020 [facility] 10 mg 11/20/2019 12:00:00 AM EST tablet extended release 24hr 30 TAKE ONE TABLET BY MOUTH EVERY DAY TAKE ONE TABLET BY MOUTH EVERY DAY SOLD: 03/09/2020 [facility] 5 mg 11/05/2019 12:00:00 AM EST tablet 180 TAKE ONE TABLET BY MOUTH EVERY 4 HOURS MAXIMUM DAILY DOSE = 12 TABLETS TAKE ONE TABLET BY MOUTH EVERY 4 HOURS MAXIMUM DAILY DOSE = 12 TABLETS SOLD: 11/05/2019 [facility] Trazodone Hydrochloride 100 MG Oral Tablet TRAZODONE HCL 11/04/2019 12:00:00 AM EST tablet 45 TAKE 1 AND 1/2 TABLET BY GALILEA TH ONCE DAILY AT BEDTIME TAKE 1 AND 1/2 TABLET BY MOUTH ONCE DAILY AT BEDTIME SOLD: 12/16/2019 [facility] Trazodone Hydrochloride 100 MG Oral Tablet TRAZODONE HCL 11/04/2019 12:00:00 AM EST tablet 45 TAKE 1 AND 1/2 TABLET BY GALILEA ONCE DAILY AT BEDTIME TAKE 1 AND 1/2 TABLET BY MOUTH ONCE DAILY AT BEDTIME SOLD: 01/27/2020 [facility] Trazodone Hydrochloride 100 MG Oral Tablet TRAZODONE HCL 11/04/2019 12:00:00 AM EST tablet 45 TAKE 1 AND 1/2 TABLET BY GALILEA ONCE DAILY AT BEDTIME TAKE 1 AND 1/2 TABLET BY MOUTH ONCE DAILY AT BEDTIME SOLD: 11/05/2019 [facility] 40 mg 10/24/2019 12:00:00 AM EST tablet 30 TAKE ONE TABLET BY MOUTH ONCE DAILY TAKE ONE TABLET BY MOUTH ONCE DAILY SOLD: 02/29/2020 [facility] 40 mg 10/24/2019 12:00:00 AM EST tablet 30 TAKE ONE TABLET BY MOUTH ONCE DAILY TAKE ONE TABLET BY MOUTH ONCE DAILY SOLD: 10/24/2019 [facility] 40 mg 10/24/2019 12:00:00 AM EST tablet 30 TAKE ONE TABLET BY MOUTH ONCE DAILY TAKE ONE TABLET BY MOUTH ONCE DAILY SOLD: 11/20/2019 [facility] 40 mg 10/24/2019 12:00:00 AM EST tablet 30 TAKE ONE TABLET BY MOUTH ONCE DAILY TAKE ONE TABLET BY MOUTH ONCE DAILY SOLD: 01/13/2020 [facility] 40 mg 10/24/2019 12:00:00 AM EST tablet 30 TAKE ONE TABLET BY MOUTH ONCE DAILY TAKE ONE TABLET BY MOUTH ONCE DAILY SOLD: 12/16/2019 [facility] 40 mg 10/24/2019 12:00:00 AM EST tablet 30 TAKE ONE TABLET BY MOUTH ONCE DAILY TAKE ONE TABLET BY MOUTH ONCE DAILY SOLD: 02/10/2020 [facility] 5 mg 10/23/2019 12:00:00 AM EST tablet 180 TAKE TWO TABLETS BY MOUTH EVERY 4 HOURS, MAXIMUM DAILY DOSE = TWELVE TABLETS TAKE TWO TABLETS BY MOUTH EVERY 4 HOURS, MAXIMUM DAILY DOSE = TWELVE TABLETS SOLD: 10/23/2019 [facility] 325 mg (65 mg iron) 10/18/2019 12:00:00 AM EST tablet 15 TAKE ONE TABLET BY MOUTH EVERY OTHER DAY TAKE ONE TABLET BY MOUTH EVERY OTHER DAY SOLD: 11/20/2019 [facility] 325 mg (65 mg iron) 10/18/2019 12:00:00 AM EST tablet 15 TAKE ONE TABLET BY MOUTH EVERY OTHER DAY TAKE ONE TABLET BY MOUTH EVERY OTHER DAY SOLD: 01/13/2020 [facility] 325 mg (65 mg iron) 10/18/2019 12:00:00 AM EST tablet 15 TAKE ONE TABLET BY MOUTH EVERY OTHER DAY TAKE ONE TABLET BY MOUTH EVERY OTHER DAY SOLD: 02/10/2020 [facility] 325 mg (65 mg iron) 10/18/2019 12:00:00 AM EST tablet 15 TAKE ONE TABLET BY MOUTH EVERY OTHER DAY TAKE ONE TABLET BY MOUTH EVERY OTHER DAY SOLD: 03/09/2020 [facility] 325 mg (65 mg iron) 10/18/2019 12:00:00 AM EST tablet 15 TAKE ONE TABLET BY MOUTH EVERY OTHER DAY TAKE ONE TABLET BY MOUTH EVERY OTHER DAY SOLD: 10/23/2019 [facility] 325 mg (65 mg iron) 10/18/2019 12:00:00 AM EST tablet 15 TAKE ONE TABLET BY MOUTH EVERY OTHER DAY TAKE ONE TABLET BY MOUTH EVERY OTHER DAY SOLD: 12/16/2019 [facility] 5 mg 10/09/2019 12:00:00 AM EST tablet 180 TAKE TWO TABLETS BY MOUTH EVERY 4 HOURS MAXIMUM DAILY DOSE = 12 TABLETS TAKE TWO TABLETS BY MOUTH EVERY 4 HOURS MAXIMUM DAILY DOSE = 12 TABLETS SOLD: 10/09/2019 [facility] 50 mcg/actuation 09/26/2019 12:00:00 AM EST spray,suspension 16 SPRAY 1 SPRAY IN EACH NOSTRIL ONCE DAILY SPRAY 1 SPRAY IN EACH NOSTRIL ONCE DAILY SOLD: 01/04/2020 [facility] 50 mcg/actuation 09/26/2019 12:00:00 AM EST spray,suspension 16 SPRAY 1 SPRAY IN EACH NOSTRIL ONCE DAILY SPRAY 1 SPRAY IN EACH NOSTRIL ONCE DAILY SOLD: 11/01/2019 [facility] 50 mcg/actuation 09/26/2019 12:00:00 AM EST spray,suspension 16 SPRAY 1 SPRAY IN EACH NOSTRIL ONCE DAILY SPRAY 1 SPRAY IN EACH NOSTRIL ONCE DAILY SOLD: 10/03/2019 [facility] 50 mcg/actuation 09/26/2019 12:00:00 AM EST spray,suspension 16 SPRAY 1 SPRAY IN EACH NOSTRIL ONCE DAILY SPRAY 1 SPRAY IN EACH NOSTRIL ONCE DAILY SOLD: 12/07/2019 [facility] 2 % 09/25/2019 12:00:00 AM EST cream 60 APPLY TO FEET TWO TIMES A DAY APPLY TO FEET TWO TIMES A DAY SOLD: 11/20/2019 [facility] 2 % 09/25/2019 12:00:00 AM EST cream 60 APPLY TO FEET TWO TIMES A DAY APPLY TO FEET TWO TIMES A DAY SOLD: 10/23/2019 [facility] 2 % 09/25/2019 12:00:00 AM EST cream 60 APPLY TO FEET TWO TIMES A DAY APPLY TO FEET TWO TIMES A DAY SOLD: 09/25/2019 [facility] 5 mg 09/25/2019 12:00:00 AM EST tablet 180 TAKE TWO TABLETS BY MOUTH EVERY 4 HOURS MAXIMUM DAILY DOSE = TWELVE TABLETS TAKE TWO TABLETS BY MOUTH EVERY 4 HOURS MAXIMUM DAILY DOSE = TWELVE TABLETS SOLD: 09/25/2019 [facility] 5 mg 09/12/2019 12:00:00 AM EST tablet 30 TAKE ONE TABLET BY MOUTH EVERY DAY TAKE ONE TABLET BY MOUTH EVERY DAY SOLD: 09/18/2019 [facility] 5 mg 09/12/2019 12:00:00 AM EST tablet 30 TAKE ONE TABLET BY MOUTH EVERY DAY TAKE ONE TABLET BY MOUTH EVERY DAY SOLD: 11/20/2019 [facility] 5 mg 09/12/2019 12:00:00 AM EST tablet 30 TAKE ONE TABLET BY MOUTH EVERY DAY TAKE ONE TABLET BY MOUTH EVERY DAY SOLD: 01/13/2020 [facility] 24 HR Bupropion Hydrochloride 150 MG Extended Release Oral T ablet BUPROPION HCL 09/12/2019 12:00:00 AM EST tablet extended release 24 hr 30 TAKE ONE TABLET BY MOUTH EVERY MORNING TAKE ONE TABLET BY MOUTH EVERY MORNING SOLD: 10/23/2019 [facility] 24 HR Bupropion Hydrochloride 150 MG Extended Release Oral T ablet BUPROPION HCL 09/12/2019 12:00:00 AM EST tablet extended release 24 hr 30 TAKE ONE TABLET BY MOUTH EVERY MORNING TAKE ONE TABLET BY MOUTH EVERY MORNING SOLD: 11/20/2019 [facility] 5 mg 09/12/2019 12:00:00 AM EST tablet 30 TAKE ONE TABLET BY MOUTH EVERY DAY TAKE ONE TABLET BY MOUTH EVERY DAY SOLD: 02/10/2020 [facility] 5 mg 09/12/2019 12:00:00 AM EST tablet 30 TAKE ONE TABLET BY MOUTH EVERY DAY TAKE ONE TABLET BY MOUTH EVERY DAY SOLD: 12/16/2019 [facility] 5 mg 09/12/2019 12:00:00 AM EST tablet 30 TAKE ONE TABLET BY MOUTH EVERY DAY TAKE ONE TABLET BY MOUTH EVERY DAY SOLD: 10/23/2019 [facility] 150 mg 09/12/2019 12:00:00 AM EST tablet extended release 24 hr 30 TAKE ONE TABLET BY MOUTH EVERY MORNING TAKE ONE TABLET BY MOUTH EVERY MORNING SOLD: 09/18/2019 [facility] 5 mg 09/11/2019 12:00:00 AM EST tablet 180 TAKE TWO TABLETS BY MOUTH EVERY 4 HOURS MAXIMUM DAILY DOSE = TWELVE TABLETS TAKE TWO TABLETS BY MOUTH EVERY 4 HOURS MAXIMUM DAILY DOSE = TWELVE TABLETS SOLD: 09/11/2019 [facility] Simvastatin 40 MG Oral Tablet SIMVASTATIN 08/17/2019 12:00:00 AM EST tablet 90 TAKE ONE TABLET BY MOUTH EVERY EVENING TAKE ONE TABLET BY MO UTH EVERY EVENING SOLD: 11/20/2019 [facility] 60 mg 07/31/2019 12:00:00 AM EDT capsule,delayed release (DR/EC) 30 TAKE ONE CAPSULE BY MOUTH EVERY EVENING TAKE ONE CAPSULE BY MOUTH EVERY EVENING SOLD: 09/11/2019 [facility] 100 mg 07/31/2019 12:00:00 AM EDT tablet 30 TAKE ONE TABLET BY MOUTH AT BEDTIME TAKE ONE TABLET BY MOUTH AT BEDTIME SOLD: 09/11/2019 [facility] Trazodone Hydrochloride 100 MG Oral Tablet TRAZODONE HCL 07/31/2019 12:00:00 AM EDT tablet 30 TAKE ONE TABLET BY MOUTH AT BEDTIME TAKE ONE TABLET BY MOUTH AT BEDTIME SOLD: 10/08/2019 [facility] 60 mg 07/31/2019 12:00:00 AM EDT capsule,delayed release (DR/EC) 30 TAKE ONE CAPSULE BY MOUTH EVERY EVENING TAKE ONE CAPSULE BY MOUTH EVERY EVENING SOLD: 10/08/2019 [facility] 20 mg 07/25/2019 12:00:00 AM EDT tablet 120 TAKE ONE TABLET BY MOUTH FOUR TIMES A DAY TAKE ONE TABLET BY MOUTH FOUR TIMES A DAY SOLD: 10/23/2019 [facility] 20 mg 07/25/2019 12:00:00 AM EDT tablet 120 TAKE ONE TABLET BY MOUTH FOUR TIMES A DAY TAKE ONE TABLET BY MOUTH FOUR TIMES A DAY SOLD: 11/20/2019 [facility] 20 mg 07/25/2019 12:00:00 AM EDT tablet 120 TAKE ONE TABLET BY MOUTH FOUR TIMES A DAY TAKE ONE TABLET BY MOUTH FOUR TIMES A DAY SOLD: 12/16/2019 [facility] 20 mg 07/25/2019 12:00:00 AM EDT tablet 120 TAKE ONE TABLET BY MOUTH FOUR TIMES A DAY TAKE ONE TABLET BY MOUTH FOUR TIMES A DAY SOLD: 09/21/2019 [facility] 325 mg (65 mg iron) 06/20/2019 12:00:00 AM EDT tablet 15 TAKE ONE TABLET BY MOUTH EVERY OTHER DAY TAKE ONE TABLET BY MOUTH EVERY OTHER DAY SOLD: 09/21/2019 [facility] 40 mg 05/24/2019 12:00:00 AM EDT tablet 30 TAKE ONE TABLET BY MOUTH EVERY DAY TAKE ONE TABLET BY MOUTH EVERY DAY SOLD: 09/25/2019 [facility] 81 mg 12/06/2018 12:00:00 AM EST tablet,delayed release (DR/EC) 30 TAKE ONE TABLET BY MOUTH EVERY DAY TAKE ONE TABLET BY MOUTH EVERY DAY SOLD: 10/23/2019 [facility] 81 mg 12/06/2018 12:00:00 AM EST tablet,delayed release (DR/EC) 30 TAKE ONE TABLET BY MOUTH EVERY DAY TAKE ONE TABLET BY MOUTH EVERY DAY SOLD: 09/25/2019 [facility] 10 mg 12/03/2018 12:00:00 AM EST tablet extended release 24hr 30 TAKE ONE TABLET BY MOUTH ONCE DAILY TAKE ONE TABLET BY MOUTH ONCE DAILY SOLD: 09/18/2019 [facility] 10 mg 12/03/2018 12:00:00 AM EST tablet extended release 24hr 30 TAKE ONE TABLET BY MOUTH ONCE DAILY TAKE ONE TABLET BY MOUTH ONCE DAILY SOLD: 10/23/2019 [facility] Insurance Providers Payer name Policy type / Coverage type Policy ID Covered democrat ID Covered democrat's relationship to borja Policy Borja Plan Information [facility] COMMUNITY PLAN [facility] [id number] SP [id number] [facility] AMERICHOICE XIX O [id number] 18 [id number] [facility] [id number] S [id number] [facility] COMMUNITY PLAN [facility] [id number] SP [id number] [facility]CA[facility]) O [id number] S [id number] ALDI [id number] SP [id number] Managed Care - [facility] Community Plan P [id number] S [id number] Medicaid S [id number] S [id number] [place] NO FAULT O [id number] S [id number] [place] [employer] NO FAULT [id number] SP [id number] [place] [id number] [id number] [employer] [id number] 18 [id number] [employer] [employer] [id number] 18 [id number] WORKMENS COMP AND NO FAULT OTHER -RECUR UNAVAILABLE UNAVAILABLE [facility] COMMUNITY PLAN XIX -RECURRING [id number] 18 [id number] [facility] COMMUNITY PLAN [facility] [id number] SP [id number] [facility] [id number] S [id number] NO FAULT MARYELLEN S [facility] COMMUNITY PLAN [facility] [id number] SP [id number] ANSI-Medicaid [id number] ANSI-Medicaid [id number] [facility] Community Plan Commercial [id number] Self [id number] ANSI-Medicaid [id number] ANSI-Medicaid [id number] ANSI-Medicaid [id number] [facility] Health Maintenance Organization (HMO) [id number] Self [id number] ANSI-Medicaid [id number] ANSI-Medicaid [id number] ANSI-Medicaid [id number] ANSI-Medicaid [id number] Managed Care - Community Plan [facility] P [id number] S [id number] ANSI-Medicaid [id number] ANSI-Medicaid [id number] ANSI-Medicaid [id number] ANSI-Medicaid [id number] [facility] Community Plan Medicaid Commercial [id number] Self [id number] [facility] [id number] S [id number] ANSI-Medicaid [id number] ANSI-Medicaid [id number] [facility] [id number] S [id number] [employer] COMMUNITY PLAN MCDHMO [id number] SP [id number] [employer] COMMUNITY PLAN MCDHMO [id number] SP [id number] [facility] Comm Plan Medicaid F [id number] SELF [id number] [facility] Comm Plan Medicaid F [id number] SELF [id number] [facility] COMMUNITY PLAN MCDHMO [id number] SP [id number] [facility] Community Plan Medicaid Commercial [id number] Self [id number] AMERICHOICE UNHC XIX HMO -RECURRING [id number] 1 [id number] [facility] Community Plan Commercial [id number] Self [id number] [facility] Community Plan Commercial [id number] Self [id number] UN[facility] COMMUNITY PLAN MCDHMO [id number] SP [id number] UNHC COMMUNITY PLAN MCDHMO [id number] SP [id number] [facility] [id number] SP [id number] [facility] Commercial [id number] Self [id number] [employer] COMMUNITY PLAN MCDHMO [id number] SP [id number] [facility] Zheng/MCR Health Maintenance Organization (HMO) [id number] Self [id number] [employer] COMMUNITY PLAN MCDHMO [id number] SP [id number] [facility]) O [id number] O [id number] [facility] COMMUNITY PLAN MCDHMO [facility] COMMUNITY PLAN MCDHMO Self [place] [facility] COMMUNITY PLAN MCDHMO UNHC COMMUNITY PLAN MCDHMO [id number] SP [id number] [facility] Care Hmo Commercial Self [facility] I [id number] Self [id number] [facility] I [id number] Self [id number] MEDICAID M [id number] Self [id number] UNHC AMERICHOICE XIX HMO [id number] 18 [id number] Managed Care - Community Plan [facility] P UNAVAILABLE S UNAVAILABLE [facility] MEDICAID 7 [id number] 1 [id number] SELF PAY 5 UNAVAILABLE 1 UNAVAILA BLE MEDICAID 3 [id number] [facility] MEDICAID 7 [id number] 1 [id number] [facility] P UNAVAILABLE S UNAVAILABLE [id number] O UNAVAILABLE UNAVAILA BLE Problems, Conditions, and Diagnoses Code Display Name Description Problem Type Effective Dates Data Source(s) J45.40 Uncomplicated moderate persistent asthma Moderate persistent asthma, unspecified whether complicated Problem 09/19/2020 12:00:00 AM EST e CW1 ([facility]) 931735504 Obesity Obesity Problem 08/09/2020 12:00:00 AM ED T MEDENT ([facility]) J45.30 Uncomplicated mild persistent asthma Mil d persistent asthma without complication Problem 08/08/2020 12:00:00 AM EDT eCW1 ([facility]) D63.8 Anemia of chronic disease Anemia of chronic disease Pr oblem 08/08/2020 12:00:00 AM EDT eCW1 ([facility]) G89.4 [id number] Chronic pain syndrome Problem 08/08/2020 12: 00:00 AM EDT eCW1 ([facility]) 57213410 Wheezing Wheezing Problem 01/30/2020 12:00:00 AM ED T MEDENT ([facility], ) 53241166 Obstructive sleep apnea syndrome Obstructive sle ep apnea syndrome Problem 01/30/2020 12:00:00 AM EDT MEDENT ([facility], ) F43.10 Post-traumatic stress disorder, unspecif ied POST-TRAUMATIC STRESS DISORDER, UNSPECIFIED Diagnosis 09/27/2020 01:00:00 PM EST [facility] F33.1 Major depressive disorder, recurrent, mo derate MAJOR DEPRESSIVE DISORDER, RECURRENT, MODERATE Diagnosis 09/27/2020 01:00:00 PM EST [facility] Surgeries/Procedures Procedure Description Date Indications Data Source(s) MYOCARDIAL SPECT MULTIPLE STUDIES 08/13/2020 12:00:00 AM EST [facility] ([facility]) CV STRS TST XERS&/OR RX CONT ECG PHYS SI&R 08/13/2020 12:00:00 AM EST [facility] ([facility]) ECG ROUTINE ECG W/LEAST 12 LDS W/I&R 08/09/2020 12:00: 00 AM EDT [facility] ([facility]) INJECTION 1 TENDON SHEATH/LIGAMENT APONEUROSIS 020 12:00:00 AM EST [facility] ([facility] ) RADEX HAND MINIMUM 3 VIEWS 11/30/2019 12:00:00 AM EST [facility] ([facility] ) EKG- ALL NON MCR/TRI PAYERS 10/12/2019 12:00:00 AM EST eCW1 ([facility]) Results ID Date Data Source [id number] 11/10/2020 02:26:00 AM EST [facility] 1 OrderSheet [facility] Emergency Department [address] [place] [address] Phone #: ext- [phone] 11/10/2020 02:20 Patient: PARIS RICE Sex: M : 1960 Age: 60yWEIGHT:117.9 kg (S) HEIGHT:70 inches (S) BMI:37.3ALLERGIES: MotrinCHIEF COMPLAINT: back pain, back injuryDIAGNOSIS: AstheniaLAB ORDERSOrder Description Priority Entered Acknowledged InitialedUrinalysis (Clean STAT 02:28 11/10/2020 03:36 Katharine Gregorio) Joaquin Abdul MD; Kristen MccartneyCBC w Diff STAT 02:40 11/10/2020 03:36 Franko Gregorio Norma MD; Kristen MccartneyCMP STAT 02:40 11/10/2020 03:36 Franko Gregorio Norma MD; Kristen MccartneyTroponin-T STAT 02:40 11/10/2020 03:36 Franko Gregorio Norma MD; Kristen MccartneyPT/INR STAT 02:40 11/10/2020 03:37 Franko Gregorio Norma MD; Kristen MccartneyPT/PTT STAT 02:40 11/10/2020 03:37 Franko Gregorio Norma MD; Kristen MccartneyMagnesium STAT 02:40 11/10/2020 03:37 Franko Gregorio Norma MD; Kristen MccartneyTSH STAT 02:40 11/10/2020 03:37 Franko Gregorio Norma MD; Kristen MccartneyCOVID-19 CAH (Not STAT 06:43 11/10/2020 06:47 Darline,Symptomatic as Joaquin Abdul MD; Kristen MccartneyDefined by CDC)(11/10/20) (First Test)(Hospitalized) (Not) (NotResident inCongregate CareSetting) (NotEmployed inHealthcare Setting)DIAGNOSTIC STUDY ORDERSOrder Description Priority Entered Acknowledged InitialedCT Head W/O Cont STAT 02:28 11/10/2020 05:06 Darlien, 2 OrderSheet [facility] Emergency Department [address] [place] [address] Phone #: ext- [phone] 11/10/2020 02:20 Patient: PARIS RICE Sex: M : 1960 Age: 60y(Oxygen?(No)) Joaquin Abdul MD; Kristen Mccartney Reason for Study: Head InjuryCT LUMBAR SP STAT 02:28 11/10/2020 05:06 Darline,W/O CONT Joaquin Abdul MD; Kristen KwokNRoula(Oxygen?(No))(IV?(No)) Reason for Study: left hip and leg painCT CTA NECK W STAT 02:40 11/10/2020 05:06 AQUILINO Gregorio PP, Norma MD; Kristen RRoulaNRoula(Oxygen?(No))(IV?(Yes)) Reason for Study: left side weaknessCT CTA HEAD W STAT 02:40 11/10/2020 05:06 AQUILINO Gregorio PP, Norma MD; Kristen KwokNRoula(Oxygen?(No))(IV?(Yes)) Reason for Study: left side weaknessMEDICATION/IV/DRIP/FLUID ORDERSOrder Description Priority Entered Acknowledged InitialedToradol IM 30 mg 02:28 11/10/2020 Cancelled: Allergy 02:56 Melaragno,(NOW x1) Joaquin Abdul MD; Kristen MccartneypredniSONE PO 60 02:28 11/10/2020 02:38 Maria Elena Romo (NOW x1) Joaquin Abdul MD; R.N.Flexeril PO 10 mg 02:28 11/10/2020 02:38 Lyn Romo(NOW x1) Joaquin Abdul MD; R.N.Tylenol PO 1000 02:38 11/10/2020 02:42 Romo, Kamronshanaetom (NOW x1) Joaquin Abdul MD; R.N.Morphine IM 4 mg 06:39 11/10/2020 Cancelled: Physician Order 06:43(NOW x1, HIGH Joaquin Abdul MD; Joaquin Abdul MDALERTMEDICATION)Morphine IVP 4 mg 06:44 11/10/2020 06:46 Davidgno,(NOW x1, HIGH Joaquin Abdul MD; Kristen MccartneyALERTMEDICATION)GENERAL ORDERSOrder Description Priority Entered Acknowledged Initialed[Electronically signed by Joaquin Abdul MD (07:21 11/10/2020)][Electronically signed by Hemalatha Jackson RN (08:05 11/10/2020)][Electronically locked by Hemalatha Jackson RN (08:05 11/10/2020)] 3 OrderSheet [facility] Emergency Department [address] [place] [address] Phone #: ext- [phone] 11/10/2020 02:20 Patient: PARIS RICE Sex: M : 1960 Age: 60y Name Value Range Interpretation Code Description Data An rce(s) Supporting Document(s) ID Date Data Source [id number] 11/10/2020 02:26:00 AM EST [facility] 1 Medication Reconciliation Report [facility] Emergency Department [address] [place] [address] Phone #: ext- [phone] 11/10/2020 02:20 Patient: PARIS RICE Sex: M : 1960 Age: 60yWeight: 117.9 kgHeight/Length: 70 in.BMI: 37.3ALLERGIES: MotrinThe patient's Home Medications are listed below:THE FOLLOWING MEDICATIONS NEED TO BE RECONCILED: AmLODIPine Besylate Oral 5 mg, daily Aspirin Oral 81 mg, daily Baclofen Oral 20 mg, 4x a day, prn buPROPion HCl Oral HYDROcodone-Acetaminophen Oral (10-300 mg) hydrOXYzine HCl Oral Lisinopril Oral 40 mg, daily Oxybutynin Chloride Oral 10 mg, daily Simvastatin Oral 10 mg, daily TraZODone HCl Oral (100 mg) 1 tablet, daily, at bedtimeThe source(s) of the original Home Medication information:patientThe following Medications were given to the patient in the Emergency Department:Prednisone [PO] PO 60 mg, administered: 02:38 11/10/2020Flexeril [PO] PO 10 mg, administered: 02:38 11/10/2020 2 Medication Reconciliation Report [facility] Emergency Department [address] [place] [address] Phone #: ext- [phone] 11/10/2020 02:20 Patient: PARIS RICE Sex: M : 1960 Age: 60yTylenol [PO] PO 1000 mg, administered: 02:41 11/10/2020Morphine [IVP] IVP 4 mg, administered: 06:46 11/10/2020The following Medications were prescribed to the patient:None. Name Value Range Interpretation Code Description Data An rce(s) Supporting Document(s) ID Date Data Source [id number] 11/10/2020 02:26:00 AM [facility] 1 Medication Administration Record [facility] Emergency Department [address] [place] [address] Phone #: ext- [phone] 11/10/2020 02:20 Patient: PARIS RICE Sex: M : 1960 Age: 60yWeight: 117.9 kgHeight/Length: 70 inBMI: 37.3ALLERGIES: Eva Date/Time Medication Administered Medication OrderedGiven PREDNISONE [PO] predniSONE PO 60 mg (NOW x1)02:38 11/10/2020 Dose: 60 mg Tablets POEzrae, Lyn, R.N.Given FLEXERIL [PO] (CYCLOBENZAPRINE Flexeril PO 10 mg (NOW x1)02:38 11/10/2020 HCL)Lyn Romo, R.N. Dose: 10 mg Tablets POGiven TYLENOL [PO] (APAP) Tylenol PO 1000 mg (NOW x1)02:41 11/10/2020 Dose: 1000 mg Tablets POEzrae, Lyn, R.N.Given MORPHINE [IVP] Morphine IVP 4 mg (NOW x1, HIGH06:46 11/10/2020 Dose: 4 mg IVP ALERT MEDICATION)Kristen Gregorio R.N. Site: #1 left Name Value Range Interpretation Code Description Data An rce(s) Supporting Document(s) ID Date Data Source [id number] 11/10/2020 02:26:00 AM [facility] 1 General Instructions [facility] Emergency Department [address] [place] [address] Phone #: ext- [phone] 11/10/2020 02:20 Patient: PARIS RICE Sex: M : 1960 Age: 60yLeft hemiparesis with weakness of the left lower extremity.TIA vs Stroke.(Electronically signed by Joaquin Abdul MD 11/10/2020 07:21) Name Value Range Interpretation Code Description Data An rce(s) Supporting Document(s) ID Date Data Source [id number] 11/10/2020 02:26:00 AM EST [facility] 1 Clinical Report - Nurses [facility] Emergency Department [address] [place] [address] Phone #: ext [phone] 11/10/2020 02:20 Patient: PARIS IRCE Sex: M : 1960 Age: 60yTRIAGEArrived by private vehicle. Historian: patient. Accompanied by family. ( Pt c/o left leg pain radiating fromhip to foot, started last night when lying in bed. Denies known injury, noticeable swelling, rash or fever).Acuity: LEVEL 3.Chief Complaint: LEFT LOWER EXTREMITY PAIN.Alert. No acute distress.No injury occurred. This started last night. It is described as radiating to the left lower extremity and foot.Provoking / relieving factors: worsened by nothing; relieved by nothing.Treatment DOCUMENT ANALYST:None.SEPSIS SCREEN: SIRS SCREEN NEGATIVE. SEPSIS SCREEN NEGATIVE. No suspected or confirmedsigns of infection present. --02:32 11/10/20 Lyn Romo R.N.02:21 11/10/20. BP: 134/91. MAP: 105. HR: 71. RR: 20. O2 saturation: 99%. Temp: 98.1 F (oral). Painlevel now: 05/20. --02:32 11/10/20 Lyn Romo R.N.Weight: 117.9 kg stated. Height/Length: 70 inches Per Patient. BMI: 37.3. --02:21 11/10/20 Lyn Romo R.N.MedicationsAmLODIPine Besylate Oral 5 mg, daily. Aspirin Oral 81 mg, daily. Baclofen Oral 20 mg, 4x a day as needed. Lisinopril Oral 40 mg, daily. Oxybutynin Chloride Oral 10 mg, daily. Simvastatin Oral 10 mg, daily. --02:27 11/10/20 Lyn Romo R.N. TraZODone HCl Oral (Tablet 100 mg) 1 tablet, daily at bedtime. --02:27 11/10/20 Lyn Romo R.N. HYDROcodone-Acetaminophen Oral (Tablet 10-300 mg). --02:27 11/10/20 Lyn Romo R.N. hydrOXYzine HCl Oral. --02:28 11/10/20 Lyn Romo R.N. buPROPion HCl Oral. --02:28 11/10/20 Lyn Romo R.N.AllergiesMotrin. (fever) --02:28 11/10/20 Lyn Romo R.N.Medication/allergy information source: the patient. --02:32 11/10/20 Lyn Romo R.N. 2 Clinical Report - Nurses [facility] Emergency Department [address] [place] [address] Phone #: [phone] 11/10/2020 02:20 Patient: PARIS RICE Sex: M : 1960 Age: 60y History PAST MEDICAL HX: Hypertension. Heart disease. Tetanus status: up-to-date. Immunizations: up-to-date. SOCIAL HX: Never smoker. No alcohol use or drug use. He was offered HIV testing but declined and hepatitis C testing but declined. He has not traveled outside the [place] Infectious disease exposure: No infectious disease exposure. SELF HARM ASSESSMENT: Self harm assessment was performed. The patient answered "no" to the question(s) "Have you recently felt down, depressed, or hopeless?", "Do you have thoughts of harming or killing yourself?", "Do you have a plan for harming or killing yourself?", "Have you recently had thoughts about harming or killing others?", "Do you have any parker erous items in your possession?", "Have you noticed less interest or pleasure in doing things?", "Are you here because you tried to hurt yourself?" and "Have you ever tried to hurt yourself before today?". ABUSE ASSESSMENT: Abuse assessment. Abuse denied. No suspicion of abuse. No report of abuse. NUTRITIONAL RISK ASSESSMENT: The nutritional risk assessment revealed no deficiencies. LEARNING NEEDS ASSESSMENT: The learning needs assessment revealed no barriers. FALL RISK ASSESSMENT: Fall risk assessment completed. Risk factors identified include severe pain and patient impairment of mobility. Fall interventions initiated. Patient placed on stretcher. Bed in low position. Brakes on. Patient visible from nurses' station. Call light in reach of patient. FUNCTIONAL SESSMENT: Functional assessment performed: uses cane. SKIN INTEGRITY ASSESSMENT: Skin integrity risk assessment completed. No skin integrity risk identified. --02:32 11/10/20 Lyn Romo R.N.PHYSICAL ASSESSMENTGENERAL / NEURO / PSYCH: Oriented X 4. Alert. Appears in no acute distress.EXTREMITIES: Extremity pulses are within normal limits. Neuro-vascular status intact to the extremity.No lower extremity edema. ( Pt c/o pain radiating from left hip down leg to left foot. States had fall10/06/20, pain started in last two days when pt was trying to sleep. Pain constant, relieved by nothing. Norash noted, no redness or swelling on visual assessment. Pt ambulatory with cane, c/o increased pain.Neuro check WNL. Speech clear, pt is excellent historian.).SKIN: Skin intact. Skin is warm and dry. --05:54 11/10/20 Lyn Romo R.N.NURSING PROGRESS NOTESPatient gowned. Reassurance given. Call light placed in reach. Bed placed in lowest position. Brakesof bed on. Patient ready for evaluation. ( evaluated patient during triage assessment). --02: Lyn Romo R.N. 02:38 11/10/2020 Prednisone PO Tablets 60 mg given. Allergies verified and confirmed 5 rights. 3 Clinical Report - Nurses [facility] Emergency Department [address] [place] [address] Phone #: ext- [phone] 11/10/2020 02:20 Patient: PARIS RICE Sex: M : 1960 Age: 60yInformation reviewed with patient including reason for taking this medication, signs of allergic reaction andprecautions. Verbalizes understanding. --02:38 11/10/20 Lyn Romo R.N.02:38 11/10/2020 Flexeril (Cyclobenzaprine HCl) PO Tablets 10 mg given. Allergies verified and confirmed5 rights. Information reviewed with patient including reason for taking this medication, signs of allergicreaction, precautions and sedative warning. Verbalizes understanding. --02:38 11/10/20 Lyn Romo R.N.02:41 11/10/2020 Tylenol (APAP) PO Tablets 1000 mg given. Allergies verified and confirmed 5 rights.Information reviewed with patient including reason for taking this medication and precautions. Verbalizesunderstanding. --02:42 11/10/20 Lyn Romo R.N.03:37 11/10/2020 Site #1 started via IV in the left antecubital space with an 20g angiocath, with aseptictechnique; one attempt. Blood drawn: rainbow set. Sent to the lab. Saline lock flushed with 10 mL saline.--03:37 11/10/20 Kristen Gregorio R.N.The patient is calm and resting quietly. --05:34 11/10/20 Kristen Gregorio R.N.05:33 11/10/20. BP: 122/55. MAP: 77. HR: 88. RR: 19. O2 saturation: 98% on room air. Pain level now:5/10. --05:34 11/10/20 Kristen Gregorio R.N.EKG time: (late entry - 06:32 11/10/2020). EKG was performed by a nurse and shown to the EDphysician. --06:41 11/10/20 Kristen Gregorio R.N.The patient is calm and resting quietly. --06:42 11/10/20 Kristen Gregorio R.N.06:42 11/10/20. BP: 141/90. MAP: 107. HR: 98. RR: 19. O2 saturation: 97% on room air. --06:421 Kristen Gregorio R.N.06:46 11/10/2020 Morphine IVP 4 mg given via site #1. Allergies verified and confirmed 5 rights. IV patencyestablished. IV site checked: no pain, redness, or swelling. IV flushed thoroughly pre- and post-medicationadministration. IVP given by RN. Information reviewed with patient including sedative warning. Verbalizesunderstanding. --06:46 11/10/20 Kristen Gregorio R.N.Patient ID band checked for patient name and birthdate: patient confirmed. COVID-19 specimen obtainedby RN via nasopharyngeal swab. Labeled in the presence of the patient and sent to lab. --06:48 11/10/20Kristen Gregorio R.N.07:11/10/2020 Morphine IVP Response: pain is improving. Symptoms have improved. --08:01 11/10/20Hemalatha Jackson RN07:30 11/10/20. Assisted patient to bathroom; tolerated well (ambulated with cane, with supervision, gaitslow, steady). --07:40 11/10/20 Hemalatha Jackson RN08:00 11/10/20. ( Ambulance arrives for transport to [facility]). --08:03 11/10/20 Hemalatha Jackson RN. 4 Clinical Report - Nurses [facility] Emergency Department [address] [place] [address] Phone #: ext- [phone] 11/10/2020 02:20 Patient: PARIS RICE Sex: M : 1960 Age: 60yDISPOSITION / DISCHARGE Report was given to a nurse via a phone call. Report included information regarding patient's care, treatment, allergies and condition including: recent changes, current vital signs and abnormal labs. Report included treatment information regarding medications given or pending; type and amount of IV fluids and medications infusing. All questions were answered. Report was acknowledged. (ABELARDO Canas). ( Report given to ABELARDO Canas at [facility]. Awaiting for COVID result prior to transfer.). --07:31 11/10/20 Kristen Gregorio R.N. Transferred to [facility]. Visit overview, summary of care (CCDA), Emtala forms and Face Sheet provided to transfer facility via paper and fax. --07:31 11/10/20 Kristen Gregorio R.N. 07:59 11/10/20. BP: 136/91. MAP: 106. HR: 80. RR: 20. O2 saturation: 98%. Temp: 98.3 F. Pain level now: 04/19. --08:00 11/10/20 Hemalatha Jackson RN Departure time: 08:04 11/10/2020. --08:04 11/10/20 Hemalatha Jackson RN.Locked/Released at 11/10/2020 08:05 by Hemalatha Jackson RN Name Value Range Interpretation Code Description Data An rce(s) Supporting Document(s) ID Date Data Source [id number] 0001 11/10/2020 02:26:00 AM EST [facility] 1 Clinical Report - Physicians/Mid Levels [facility] Emergency Department [address] [place] [address] Phone #: ext [phone] 11/10/2020 02:20 Patient: PARIS RICE Sex: M : 1960 Age: 60y Arrived- By private vehicle. Historian- patient.HISTORY OF PRESENT ILLNESS Chief Complaint: BACK INJURY and BACK PAIN. It is described as being in the area of the left lower lumbar spine and left SI joint and radiating to the left thigh. The quality is noted to be sharp and aching. It is still present. No bladder dysfunction, bowel dysfunction, sensory loss or motor loss. Patient notes an injury (sep 2021). Mechanism of injury- fell: Patient also notes injury to the head. Similar symptoms previously. None. Recent medical care: Not recently seen/assessed.REVIEW OF SYSTEMSNo fever, chills, eye irritation or difficulty with urination or urination. No urinary frequency or urinaryfrequency, hematuria or skin rash or rash. No headache, depression, sore throat or throat or cough. Nodifficulty breathing, chest pain or pain or abdominal pain or pain. No nausea, vomiting, diarrhea, blackstools or bloody stools. No chills, fever, photophobia, ear pain or nasal congestion. No cough, difficultybreathing, diarrhea, nausea or vomiting. No hematuria, neck pain, headache, seizure or easy bruising.The patient has had back pain and sustained a head injury.PAST HISTORYSee nurses notes. Has had back injury. Problems: Benign Prostatic Hypertrophy. Elevated Cholesterol. Sciatica. Lumbar Strain. Herniated Disk. HTN. Intervertebral Disc Disease. Hypertension. Additional Surgeries: Appendectomy. Boil removed from buttocks. Kidney stone removal. Lithotripsy. ( X3) Prostate surgery. (X2 (no removal)) 2 Clinical Report - Physicians/Mid Levels [facility] Emergency Department [address] [place] [address] Phone #: ext- [phone] 11/10/2020 02:20 Patient: PARIS RICE Sex: M : 1960 Age: 60y TURP - Trans Urethral Resection of Prostate. Medications: buPROPion HCl Oral. hydrOXYzine HCl Oral. HYDROcodone-Acetaminophen Oral (Tablet 10-300 mg). TraZODone HCl Oral (Tablet 100 mg) 1 tablet, daily at bedtime. AmLODIPine Besylate Oral 5 mg, daily. Aspirin Oral 81 mg, daily. Baclofen Oral 20 mg, 4x a day as needed. Lisinopril Oral 40 mg, daily. Oxybutynin Chloride Oral 10 mg, daily. Simvastatin Oral 10 mg, daily. Allergies: Motrin. (fever).SOCIAL HISTORYNo drug use.ADDITIONAL NOTESThe nursing notes have been reviewed.PHYSICAL EXAMAppearance: Alert. No acute distress.HEENT: Normal external inspectio n.Eyes: Pupils equal, round and reactive to light.ENT: Pharynx normal.Neck: Normal inspection. Neck nontender. Painless ROM.CVS: Heart sounds normal. Pulses normal.Respiratory: No respiratory distress. Painless inspiration. Breath sounds normal.Abdomen: No visible injury. Soft and nontender. Bowel sounds normal.Back: Normal inspection. No tenderness. Painless ROM.Skin: Skin warm and dry. Normal skin color. No rash. Normal skin turgor.Extremities: Extremities exhibit normal ROM. Extremities nontender.Neuro: Oriented X 3. Mood/affect normal. No motor deficit. No sensory deficit.LABS, X-RAYS, AND EKGLaboratory Tests: CBC w Diff: (NICK: 11/10/2020 03:30) ( MsgRcvd 11/10/2020 03:48) Final results Test Result Flag Units (Reference) CBC W/AUTOMATED DIFF COMPLETE BLOOD COUNT WBC 7.0 10/uL (4.2 - 11.0) RBC 4.44 L 10/uL (4.50 - 6.30) HEMOGLOBIN 13.4 L g/dL (14.0 - 16.0) 3 Clinical Report - Physicians/Mid Levels [facility] Emergency Department [address] [place] [address] Phone #: ext- [phone] 11/10/2020 02:20 Patient: PARIS RICE Sex: M : 1960 Age: 60y HEMATOCRIT 38.0 L % (41.0 - 51.0) MCV 85.6 fL (80.0 - 94.0) MCH 30.2 pg (27.0 - 34.0) MCHC 35.3 g/dL (31.0 - 36.0) RDW 11.9 % (11.5 - 14.8) PLATELETS 279 10/uL (150 - 450) MPV 8.6 fL (7.4 - 10.4) NEUT 32.9 L % (37.0 - 80.0) LYMPH 48.7 H % (25.0 - 40.0) MONO 9.3 H % (3.0 - 8.0) EOS 7.7 H % (0.0 - 7.0) BASO 1.1 % (0.0 - 2.0) %IG 0.3 H % (0.0 - 0.0) %NRBC 0.0 % (0.0 - 0.0) #NEUT 2.30 10/uL (2.00 - 6.90) #LYMPH 3.41 H 10/uL (0.60 - 3.40) #MONO 0.65 10/uL (0.00 - 0.90) #EOS 0.54 10/uL (0.00 - 0.70) #BASO 0.08 10/uL (0.00 - 0.20) #IG 0.02 10/uL (0.00 - 0.10) #NRBC 0.00 10/uL (0.00 - 0.00) MANUAL DIFF NOT INDICATED RBC MORPH NOT INDICATEDCMP: (NICK: 11/10/2020 03:30) ( MsgRcvd 11/10/2020 04:24) Final results Test Result Flag Units (Reference) COMPREHENSIVE METABOLIC PANEL COMPREHENSIVE METABOLIC PANEL SODIUM 138 mEq/L (134 - 153) POTASSIUM 3.8 mEq/L (3.6 - 5.0) CHLORIDE 100 mEq/L (98 - 107) CO2 27 MEQ/L (22 - 30) GLUCOSE 105 H MG/DL (70 - 99) BUN 16 MG/DL (7 - 21) CREATININE 1.2 MG/DL (0.7 - 1.5) BUN/CREAT 13 (8 - 27) TOTAL PROTEIN 7.6 G/DL (6.3 - 8.2) ALBUMIN 4.7 G/DL (3.9 - 5.0) GLOBULIN 2.9 GM/DL (2.4 - 3.2) A/G RATIO 1.6 (0.8 - 2.0) CALCIUM 9.5 MG/DL (8.4 - 10.2) TOTAL BILI <0.7 MG/DL (0.2 - 1.3) ALKALINE PHOS 71 U/L (38 - 126) SGOT/AST 20 U/L (5 - 40) SGPT/ALT 20 U/L (7 - 56) ANION GAP 11.0 mmol/L (8.0 - 16.0) AGE 60 yrs NON-AA GFR >60 mL/min AFR AMER GFR >60 mL/min Male GFR Interprentation 20-49 yrs >60 mL/min Lacfdu26-74 yrs >56 mL/min Normal 60-69 yrs >49 mL/min Normal 70-79yrs>42 mL/min Normal 80 and above >35 mL/min Normal Female GFRInterpretation 20-39 yrs >60 mL/min Normal 40-49 yrs >58 mL/minNormal 50-59 yrs >51 mL/min Normal 60-69 yrs >45 mL/min Fpzkqx51-22 yrs >39 mL/min Normal 80 and above >32 mL/min NormalTroponin-T: (NICK: 11/10/2020 03:30) ( MsgRcvd 11/10/2020 04:15) Final results Test Result Flag Units (Reference) 4 Clinical Report - Physicians/Mid Levels [facility] Emergency Department [address] [place] [address] Phone #: ext- [phone] 11/10/2020 02:20 Patient: PARIS RICE Sex: M : 1960 Age: 60y TROPONIN T <0.01 NG/ML (0.00 - 0.10) TROPONIN T0.1 ng/ml Recommended as the clinical threshold value forTroponin T.PT/INR: (NICK: 11/10/2020 03:30) ( MsgRcvd 11/10/2020 04:01) Final results Test Result Flag Units (Reference) PROTIME 13.0 SECONDS (11.0 - 15.5) INR 0.94 (0.93 - 1.23) \\BLDo\\INR INTERPRETATION\\BLDx\\ Therapeutic range for Coumadin andrelated oral anticoagulants. -International Normalized Ratio (INR): 2.0 - 3.0 for VenousThrombosis, Pulmonary Embolus, Tissue heart valves, Acute OK, Atrial Fibrillation, Valvular heartdisease and recurrent Systemic Embolism. -International Normalized Ratio (INR): 2.5 - 3.5for Mechanical Prosthetic valve.PT/PTT: (NICK: 11/10/2020 03:30) ( MsgRcvd 11/10/2020 04:01) Final results Test Result Flag Units (Reference) PROTIME 13.0 SECONDS (11.0 - 15.5) INR 0.94 (0.93 - 1.23) PTT 29.8 SECONDS (24.8 - 36.7) \\BLDo\\INR INTERPRETATION\\BLDx\\ Therapeutic range for Coumadin andrelated oral anticoagulants. -International Normalized Ratio (INR): 2.0 - 3.0 for VenousThrombosis, Pulmonary Embolus, Tissue heart valves, Acute OK Atrial Fibrillation, Valvular heart diseaseand recurrent Systemic Embolism. -International Normalized Ratio (INR): 2.5 - 3.5 forMechanical Prosthetic valve.Magnesium: (NICK: 11/10/2020 03:30) ( NmgRcvd 11/10/2020 04:24) Final results Test Result Flag Units (Reference) MAGNESIUM 2.1 MG/DL (1.7 - 2.2)TSH: (NICK: 11/10/2020 03:30) ( NmgRcvd 11/10/2020 04:24) Final results Test Result Flag Units (Reference) TSH 2.23 uIU/mL (0.47 - 5.01)CT CTA NECK W CONT INC PP: (NICK: 11/10/2020 02:40) ( [facility] 11/10/2020 06:33) Final resultsCT CTA NECK W CONT INC PPReason(s): left side weaknessTRANSPORTATION: WC IV? IV?(Yes) O2? Oxygen?(No) Ro Test Result Flag Units (Reference) [place] [address] ---------N SEPIDEH--------- NUMBER SEX AGE ADMIT DISC. XRAY# F/C TYPE DWAYNE Schafer [id number] M 60 11/10/20 [id number] X6B E/R DATE OF : 1960 M/R# [id number] PH#: [phone] TR-03 LOCATION: EMERGENCY DEPT TRANSCRIBED: 11/10/20 6:[address] [place] [id number] COMPLETED:11/10/20 6:33 domi 3352 Reason(s): left side weakness -- PHYSICIAN: KENY -- -- R A D I O L O G Y R E P O R T 5 Clinical Report - Physicians/Mid Levels [facility] Emergency Department [address] [place] [address] Phone #: ext- [phone] 11/10/2020 02:20 Patient: PARIS RICE Sex: M : 1960 Age: 60y -- PATIENT HISTORY: Left side weakness. Accumulated DLP(COW/Carotid Combined) - 1876.0 mGy*cm, Estimated DLP-1880.6 mGy*cm. [id number], 75mL, [id number], 06/02. BUN-16, Createnine-1.2, GFR >60. Male. Time Out performed. Correct patient with 2 identifiers, type and amount of contrast used, correct body part and side all verified prior to examination. Images sent to [facility] for review. - RLB / RIGHT EXTERNAL CAROTID (DICOM Hx) EXAM: CTA Neck with Intravenous Contrast. -- CLINICAL HISTORY:Left side weakness. Accumulated DLP(COW/Carotid Combined) - 1876.0 mGy*cm, Estimated DLP-1880.6 mGy*cm. [id number], 75mL, [id number], 06/02. BUN-16, Createnine-1.2, GFR >60. Male. Time Out performed. Correct patient with 2 identifiers, type and amount of contrast used, correct body part and side all verified prior to examination. Images sent to [facility] for review. - RLB -- TECHNIQUE: Axial CTA images of the neck performed with intravenous contrast in the arterial phase. Coronal and sagittal reformatted images were generated and reviewed. 3-D reformatted images generated on an independent workstation were also reviewed. NASCET criteria were used in assessment of stenosis. All CT scans at this facility use dose modulation, iterative reconstruction, and/or weight-based dosing when appropriate to reduce radiation dose to as low as reasonably achievable. -- CONTRAST: Contrast injected without incident. With; [id number], 75mL -- COMPARISON:None provided. -- -- FINDINGS: -- -- VASCULATURE: -- Internal carotid arteries: No stenosis by NASCET criteria. No dissection or -- occlusion. -- Common carotid arteries: No significant stenosis. No dissection or occlusion. -- External carotid arteries: Patent. -- Vertebral arteries:The right vertebral artery is small in caliber and hypoplastic both vertebral arteries are patent. -- Soft tissues: No acute finding. -- Bones: No acute osseous abnormality. -- -- IMPRESSION: -- No evidence of vessel occlusion or significant stenosis. -- While performing the above CT examination, radiation dose reduction was accomplished utilizing automated exposure control, adjusting of the mA and kV based on the patient's body size and/or the use of imperative reconstructive -- techniques. -- -- -- Electronically Signed By: Geremias Massey MD , Radiologist Date/Time: 11/10/20 06:33CT CTA HEAD W CONTRAST INC PP: (NICK: 11/10/2020 02:40) ( MsgRcvd 11/10/2020 06:31) Final 6 Clinical Report - Physicians/Mid Levels [facility] Emergency Department [address] [place] [address] Phone #: ext- [phone] 11/10/2020 02:20 Patient: PARIS RICE Sex: M : 1960 Age: 60yresultsCT CTA HEAD W CONTRAST INC PPReason(s): left side weaknessTRANSPORTATION: WC IV? IV?(Yes) O2? Oxygen?(No) Ro Test Result Flag Units (Reference) CT CTA HEAD W CONTRAST INC PP [id number] [place] [address] ---------NAME--------- NUMBER SEX AGE ADMIT DISC. XRAY# F/C TYPE DWAYNE Schafer [id number] M 60 11/10/20 [id number] X6B E/R DATE OF : 1960 M/R# [id number] #: [id number] TR-03 LOCATION: EMERGENCY DEPT TRANSCRIBED: 11/10/20 6:[address] [place] [id number] COMPLETED:11/10/20 6:31 domi 3353 Reason(s): left side weakness -- PHYSICIAN: KENY -- -- R A D I O L O G Y R E P O R T -- PATIENT HISTORY: Left side weakness. Accumulated DLP(COW/Carotid Combined) - 1875.0 mGy*cm, Estimated DLP-1880.6 mGy*cm. [id number], 75mL, [id number], 06/02. BUN-16, Createnine-1.2, GFR >60. Male. Time Out performed. Correct patient with 2 identifiers, type and amount of contrast used, correct body part and side all verified prior to examination. Images sent to [facility] for review. - RLB / SAG (DICOM Hx) EXAMINATION CTA Head With Intravenous Contrast -- HISTORYLeft side weakness. Accumulated DLP(COW/Carotid Combined) - 1876.0 mGy*cm, Estimated DLP-1880.6 mGy*cm. [id number], 75mL, [id number], 06/02. BUN-16, Createnine-1.2, GFR >60. Male. Time Out performed. Correct patient with 2 identifiers, type and amount of contrast used, correct body part and side all verified prior to examination. Images sent to [facility] for review. - RLB (Hx) / SAG (DICOM Hx) (DICOM Hx) -- TECHNIQUE Axial CTA images of the head with intravenous contrast in the arterial phase. Coronal and sagittal reformatted images were generated and reviewed. 3-D reformatted images generated on an independent workstation were also reviewed. NASCET criteria were used in assessment of stenosis. All CT scans at this facility use dose modulation, iterative reconstruction, and/or weight-based dosing when appropriate to reduce radiation dose to as low as reasonably -- achievable. -- CONTRAST Contrast injected without incident. With; BSS221, 75mL -- -- COMPARISON CT -- -- FINDINGS: -- INTERNAL CAROTID ARTERIES The intracranial ICAs are patent with no significant stenosis. No occlusion. No aneurysm. -- ANTERIOR CEREBRAL ARTERIES No significant vaughn nosis. No occlusion. No aneurysm. -- MIDDLE CEREBRAL ARTERIES No significant stenosis. No occlusion. No aneurysm. -- POSTERIOR CEREBRAL ARTERIES No significant stenosis. No occlusion. No aneurysm. 7 Clinical Report - Physicians/Mid Levels [facility] Emergency Department [address] [place] [address] Phone #: ext- [phone] 11/10/2020 02:20 [id number] Sex: M : 1960 Age: 60y -- BASILAR ARTERY No significant stenosis. No occlusion. No aneurysm. -- VERTEBRAL ARTERIES No significant stenosis. No occlusion. No aneurysm. -- -- IMPRESSION: -- No evidence of vessel occlusion. No evidence of significant stenosis or saccular aneurysm. -- While performing the above CT examination, radiation dose reduction was accomplished utilizing automated exposure control, adjusting of the mA and kV based on the patient's body size and/or the use of imperative reconstructive -- techniques. -- -- -- Electronically Signed By: Geremias Massey MD , Radiologist Date/Time: 11/10/20 06:30CT Head W/O Cont: (NICK: 11/10/2020 02:28) ( MsgRcvd 11/10/2020 03:44) Final resultsCT HEAD W/O CONTRASTReason(s): Head InjuryTRANSPORTATION: WC IV? O2? Oxygen?(No) Room: ED Exam [place] HEAD W/[place] [address] ---------NAME--------- NUMBER SEX AGE ADMIT DISC. XRAY# F/C TYPE DWAYNE Schafer [id number] M 60 11/10/20 [id number] X6B E/R DATE OF : 1960 M/R# [id number] #: [id number] TR-03 LOCATION: EMERGENCY DEPT TRANSCRIBED: 11/10/20 3:[address] HEAD W/O CONTRAST 16619 COMPLETED:11/10/20 3:44 domi 3350 Reason(s): Head Injury PHYSICIAN: KENY R A D I O L O G Y R E P O R T ==== PATIENT HISTORY: Head Injury, Accumlated DLP- 857.4 mGy*cm, Estimated DLP-856.7 mGy*cm. Male. Verification of 2 patient identifiers performed. - RLB / BRAIN ANGLED (DICOM Hx) EXAM: CT Head Without IV contrast. CLINICAL HISTORY:Head Injury, Accumlated DLP- 857.4 mGy*cm, Estimated DLP-856.7 mGy*cm. Male. Verification of 2 patient identifiers performed. - RLB TECHNIQUE: Axial computed tomography images of the head/brain without intravenous contrast. All CT scans at this facility use dose modulation, iterative reconstruction, and/or weight-based dosing when appropriate to reduce radiation dose to as low as reasonably achievable. COMPARISON:None provided. FINDINGS: 8 Clinical Report - Physicians/Mid Levels [facility] Emergency Department [address] [place] [address] Phone #: [phone] 11/10/2020 02:20 Patient: PARIS RICE Sex: M : 1960 Age: 60y BRAIN: No evidence of acute hemorrhage. No mass lesion. No CT evidence for acute territorial infarct. No midline shift or extra-axial collections. VENTRICLES: No hydrocephalus. ORBITS: The orbits are unremarkable. SINUSES AND MASTOIDS: The paranasal sinuses and mastoid air cells are clear. BONES: No fracture. SOFT TISSUES: Unremarkable. IMPRESSION: No acute intracranial abnormality. While performing the above CT examination, radiation dose reduction was accomplished utilizing automated exposure control, adjusting of the mA and kV based on the patient's body size and/or the use of imperative reconstructive techniques. Electronically Signed By: Manish Lyons MD , Radiologist Date/Time: 11/10/20 03:43CT LUMBAR SP W/O CONT: (NICK: 11/10/2020 02:28) ( MsgRcvd 11/10/2020 04:21) Final resultsCT LUMBAR SP W/O CONTReason(s): left hip and leg painTRAN SPORTATION: WC IV? IV?(No) O2? Oxygen?(No) Diana Test Result Flag Units (Reference) CT LUMBAR SP W/[place] [address] ---------NAME--------- NUMBER SEX AGE ADMIT DISC. XRAY# F/C TYPE DWAYNE TOLEDO Hanh [id number] M 60 11/10/20 [id number] X6B E/R DATE OF : 1960 M/R# [id number] #: [id number] TR-03 LOCATION: EMERGENCY DEPT TRANSCRIBED: 11/10/20 4:[address] LUMBAR SP W/O CONT [id number] COMPLETED:11/10/20 4:21 domi 3351 Reason(s): left hip and leg pain -- PHYSICIAN: KENY -- -- R A D I O L O G Y R E P O R T -- PATIENT HISTORY: Left hip and leg pain. Patient complains of left side discomfort and difficulty in motor skills for 2 Days. / SAGITTAL (DICOM Hx) EXAM: CT Lumbar Spine Without IV contrast. -- CLINICAL HISTORY:Left hip and leg pain. Patient complains of left side discomfort and difficulty in motor skills for 2 Days. -- TECHNIQUE: Axial computed tomography images of the lumbar spine without intravenous contrast. Sagittal and coronal reformatted images were generated. 9 Clinical Report - Physicians/Mid Levels [facility] Emergency Department [address] [place] [address] Phone #: [phone] 11/10/2020 02:20 Patient: PARIS RICE Sex: M : 1960 Age: [address] scans at this facility use dose modulation, iterative reconstruction, and/or weight-based dosing when appropriate to reduce radiation dose to as low as reasonably achievable. -- COMPARISON:None provided. -- -- FINDINGS: -- ALIGNMENT: Bony alignment is anatomic. -- DISCS/DEGENERATIVE CHANGES:There are likely disk bulges at the L3/L4 and L4/L5 levels. There is likely some spinal canal narrowing at L4/L5 although this is difficult to visualized. -- BONES: No acute fracture or aggressive appearing osseous lesion. -- SOFT TISSUES: The soft tissues are unremarkable. -- MISCELLANEOUS:The examination is limited by body habitus -- -- IMPRESSION: -- No acute fracture or subluxation of the lumbar spine. -- While performing the above CT examination, radiation dose reduction was accomplished utilizing automated exposure control, adjusting of the mA and kV based on the patient's body size and/or the use of imperative reconstructive -- techniques. -- -- -- Electronically Signed By: Geremias Massey MD , Radiologist Date/Time: 11/10/20 04:20 Urinalysis: (NICK: 11/10/2020 03:30) ( MsgRcvd 11/10/2020 03:50) Final results Test Result Flag Units (Reference) URINALYSIS URINALYSIS SOURCE Clean Catch COLOR yellow (NORMAL: Yello CLARITY clear (NORMAL: Clear SPEC GRAVITY 1.010 (1.001 - 1.030 pH 6 (5 - 9) GLUCOSE NORM (NORMAL: Negat BILIRUBIN NEG (NORMAL: Negat KETONE NEG (NORMAL: Negat PROTEIN NEG (NORMAL: Negat NITRITE NEG (NORMAL: Negat BLOOD NEG (NORMAL: Negat LEUK EST NEG (NORMAL: Negat UROBILINOGEN NOR (less than 1.0 MICROSCOPIC Not Indicate.PROGRESS AND PROCEDURESCourse of Care: Pt is a 60 year old male who presents tot he ED for evaluation of his left upper and lower 10 Clinical Report - Physicians/Mid Levels [facility] Emergency Department [address] [place] [address] Phone #: [phone] 11/10/2020 02:20 Patient: PARIS RICE Sex: M : 1960 Age: 60y extremity weakness. he states that it has been ongoing for 2 days. he feels heavy to his left side. he states that it goes up his neck on the left side. he denies any trauma. he does have a hx of hypertension. he denies any previous cva or MIs. On evaluation, he has no objective findings. CT head and CTa head and neck show no acute findings. Labs are grossly nl. EKG shows nsr. although all of these studies are nl, i am still concerned he may have an acute intracranial process. He needs an MRI. I called [facility] and discussed the case with Dr. Doyle. He agreed to accept pt to the ED. I discussed with pt. He is comfortable with the plan. Patient/family counseled. Disposition: Transferred to [facility]. Condition: stable.CLINICAL IMPRESSION Left hemiparesis with weakness of the left lower extremity. TIA vs Stroke.(Electronically signed by Joaquin Abdul MD 11/10/2020 07:21) Name Value Range Interpretation Code Description Data An rce(s) Supporting Document(s) ID Date Data Source [id number] 11/10/2020 07:40:00 AM [facility] NOT DETECTEDNOT DETECTED{ PROC EDURAL CONTROL VALID KIT LOT # _[id number] 11/10/20.TAD. . . KIT EXP DATE _02.15.21 11/10/20.TAD. . . NORMAL RANGE IS NOT DETECTEDNEGATIVE RESULTS SHOULD BE TREATED PRESUMPTIVE AND, IF INCONSISTENT WITHCLINICAL SIGNS AND SYMPTOMS OR NECESSARY FOR PATIENT MANAGEMENT, SHOULD BETESTED WITH DIFFERENT AUTHORIZED OR CLEARED MOLECULAR TESTS. NEGATIVE RESULTSDO NOT PRECLUDE SARS-CoV -2 INFECTION AND SHOULD NOT BE USED THE SOLE BASISFOR PATIENT MANAGEMENT DECISIONS. Name Value Range Interpretation Code Description Data An rce(s) Supporting Document(s) ID Date Data Source [id number] 11/10/2020 06:33:00 [place] [address] ---------NAME--------- NUMBER SEX AGE ADMIT DISC. XRAY# F/C TYPE DWAYNE Schafer [id number] M 60 11/10/20 [id number] X6B E/R DATE OF : 1960 M/R# [id number] PH#: [phone] TR-03 LOCATION: EMERGENCY DEPT TRANSCRIBED: 11/10/20 6:[address] [place] [id number] COMPLETED:11/10/20 6:33 domi 3352 Reason(s): left side weakness PHYSICIAN: KENY======= R A D I O L O G Y R E P O R T PATIENT HISTORY:Left side weakness. Accumulated DLP(COW/Carotid Combined) - 1876.0 mGy*cm,Estimated DLP-1880.6 mGy*cm. [id number], 75mL, [id number], 06/02. BUN-16,Createnine-1.2, GFR >60. Male.Time Out performed. Correct patient with 2 identifiers, type and amount ofcontrast used, correct body part and side all verified prior to examination.Images sent to [facility] for review. - RLB / RIGHT EXTERNAL CAROTID (DICOM Hx)EXAM: CTA Neck with Intravenous Contrast.CLINICAL HISTORY:Left side weakness. Accumulated DLP(COW/Carotid Combined) -1876.0 mGy*cm, Estimated DLP-1880.6 mGy*cm. [id number], 75mL, [id number], 06/02.BUN-16, Createnine-1.2, GFR >60. Male. Time Out performed. Correct patient with2 identifiers, type and amount of contrast used, correct body part and side allverified prior to examination. Images sent to [facility] for review. - RLBTECHNIQUE: Axial CTA images of the neck performed with intravenous contrast inthe arterial phase. Coronal and sagittal reformatted images were generated andreviewed. 3-D reformatted images generated on an independent workstation werealso reviewed. NASCET criteria were used in assessment of stenosis. All CT scansat this facility use dose modulation, iterative reconstruction, and/orweight-based dosing when appropriate to reduce radiation dose to as low asreasonably achievable.CONTRAST: Contrast injected without incident. With; [id number], 75mLCOMPARISON:None provided.FINDINGS:VASCULATURE:Internal carotid arteries: No stenosis by NASCET criteria. No dissection orocclusion.Common carotid arteries: No significant stenosis. No dissection or occlusion.External carotid arteries: Patent.Vertebral arteries:The right vertebral artery is small in caliber andhypoplastic both vertebral arteries are patent.Soft tissues: No acute finding.Bones: No acute osseous abnormality.IMPRESSION:No evidence of vessel occlusion or significant stenosis.While performing the above CT examination, radiation dose reduction wasaccomplished utilizing automated exposure control, adjusting of the mA and kVbased on the patient's body size and/or the use of imperative reconstructivetechniques.Electronically Signed By:Geremias Massey MD , RadiologistDate/Time: 11/10/20 06:33 Name Value Range Interpretation Code Description Data An rce(s) Supporting Document(s) ID Date Data Source [id number] 11/10/2020 06:30:00 AM [facility] [address] [place] [address] ---------NAME--------- NUMBER SEX AGE ADMIT DISC. XRAY# F/C TYPE DWAYNE Schafer [id number] M 60 11/10/20 [id number] X6B E/R DATE OF : 1960 M/R# [id number] PH#: [phone] TR-03 LOCATION: EMERGENCY DEPT TRANSCRIBED: 11/10/20 6:[address] [place] [id number] COMPLETED:11/10/20 6:31 domi 3353 Reason(s): left side weakness PHYSICIAN: KENY======= R A D I O L O G Y R E P O R T PATIENT HISTORY:Left side weakness. Accumulated DLP(COW/Carotid Combined) - 1876.0 mGy*cm,Estimated DLP-1880.6 mGy*cm. [id number], 75mL, [id number], 06/02. BUN-16,Createnine-1.2, GFR >60. Male.Time Out performed. Correct patient with 2 identifiers, type and amount ofcontrast used, correct body part and side all verified prior to examination.Images sent to [facility] for review. - RLB / SAG (DICOM Hx)EXAMINATION CTA Head With Intravenous ContrastHISTORYLeft side weakness. Accumulated DLP(COW/Carotid Combined) - 1876.0mGy*cm, Estimated DLP- 1880.6 mGy*cm. [id number], 75mL, [id number], 06/02. BUN-16,Createnine-1.2, GFR >60. Male. Time Out performed. Correct patient with 2identifiers, type and amount of contrast used, correct body part and side allverified prior to examination. Images sent to [facility] for review. - RLB (Hx) /SAG (DICOM Hx) (DICOM Hx)TECHNIQUE Axial CTA images of the head with intravenous contrast in the arterialphase. Coronal and sagittal reformatted images were generated and reviewed. 3-Dreformatted images generated on an independent workstation were also reviewed.NASCET criteria were used in assessment of stenosis. All CT scans at [facility] use dose modulation, iterative reconstruction, and/or weight- baseddosing when appropriate to reduce radiation dose to as low as reasonablyachievable.CONTRAST Contrast injected without incident. With; [id number], 75mLCOMPARISON CTFINDINGS:INTERNAL CAROTID ARTERIES The intracranial ICAs are patent with no significantstenosis. No occlusion. No aneurysm.ANTERIOR CEREBRAL ARTERIES No significant stenosis. No occlusion. No aneurysm.MIDDLE CEREBRAL ARTERIES No significant stenosis. No occlusion. No aneurysm.POSTERIOR CEREBRAL ARTERIES No significant stenosis. No occlusion. No aneurysm.BASILAR ARTERY No significant stenosis. No occlusion. No aneurysm.VERTEBRAL ARTERIES No significant stenosis. No occlusion. No aneurysm.IMPRESSION:No evidence of vessel occlusion.No evidence of significant stenosis or saccular aneurysm.While performing the above CT examination, radiation dose reduction wasaccomplished utilizing automated exposure control, adjusting of the mA and kVbased on the patient's body size and/or the use of imperative reconstructivetechniques.Electronically Signed By:Geremias Massey MD , RadiologistDate/Time: 11/10/20 06:30 Name Value Range Interpretation Code Description Data An rce(s) Supporting Document(s) ID Date Data Source [id number] 11/10/2020 04:20:00 AM EST [facility] [address] [place] [address] ---------NAME--------- NUMBER SEX AGE ADMIT DISC. XRAY# F/C TYPE DWAYNE Schafer [id number] M 60 11/10/20 [id number] X6B E/R DATE OF : 1960 M/R# [id number] #: [id number] TR-03 LOCATION: EMERGENCY DEPT TRANSCRIBED: 11/10/20 4:[address] LUMBAR SP W/O CONT [id number] COMPLETED:11/10/20 4:21 domi 3351 Reason(s): left hip and leg pain PHYSICIAN: KENY==== R A D I O L O G Y R E P O R T ===PATIENT HISTORY:Left hip and leg pain. Patient complains of left side discomfort and difficultyin motor skills for 2 Days. / SAGITTAL (DICOM Hx)EXAM: CT Lumbar Spine Without IV contrast.CLINICAL HISTORY:Left hip and leg pain. Patient complains of left sidediscomfort and difficulty in motor skills for 2 Days.TECHNIQUE: Axial computed tomography images of the lumbar spine withoutintravenous contrast. Sagittal and coronal reformatted images were generated.All CT scans at this facility use dose modulation, iterative reconstruction,and/or weight-based dosing when appropriate to reduce radiation dose to as lowas reasonably achievable.COMPARISON:None provided.FINDINGS:ALIGNMENT: Bony alignment is anatomic.DISCS/DEGENERATIVE CHANGES:There are likely disk bulges at the L3/L4 and L4/G8wngh[place]. There is li ethel some spinal canal narrowing at L4/L5 although this isdifficult to visualized.BONES: No acute fracture or aggressive appearing osseous lesion.SOFT TISSUES: The soft tissues are unremarkable.MISCELLANEOUS:The examination is limited by body habitusIMPRESSION:No acute fracture or subluxation of the lumbar spine.While performing the above CT examination, radiation dose reduction wasaccomplished utilizing automated exposure control, adjusting of the mA and kVbased on the patient's body size and/or the use of imperative reconstructivetechniques.Electronically Signed By:Geremias Massey MD , RadiologistDate/Time: 11/10/20 04:20 Name Value Range Interpretation Code Description Data An rce(s) Supporting Document(s) ID Date Data Source [id number] 11/10/2020 03:43:[address] [address] ---------NAME--------- NUMBER SEX AGE ADMIT DISC. XRAY# F/C TYPE DWAYNE Schafer [id number] M 60 11/10/20 [id number] X6B E/R DATE OF : 1960 M/R# [id number] PH#: [phone] TR-03 LOCATION: EMERGENCY DEPT TRANSCRIBED: 11/10/20 3:[address] HEAD W/O CONTRAST [id number] COMPLETED:11/10/20 3:44 domi 3350 Reason(s): Head Injury PHYSICIAN: KENY R A D I O L O G Y R E P O R T PATIENT HISTORY:Head Injury, Accumlated DLP- 857.4 mGy*cm, Estimated DLP-856.7 mGy*cm. Male.Verification of 2 patient identifiers performed. - RLB / BRAIN ANGLED (DICOM Hx)EXAM: CT Head Without IV contrast.CLINICAL HISTORY:Head Injury, Accumlated DLP- 857.4 mGy*cm, Estimated DLP-856.7mGy*cm. Male. Verification of 2 patient identifiers performed. - RLBTECHNIQUE: Axial computed tomography images of the head/brain withoutintravenous contrast. All CT scans at this facility use dose modulation,iterative reconstruction, and/or weight-based dosing when appropriate to reduceradiation dose to as low as reasonably a chievable.COMPARISON:None provided.FINDINGS:BRAIN: No evidence of acute hemorrhage. No mass lesion. No CT evidence for acuteterritorial infarct. No midline shift or extra-axial collections.VENTRICLES: No hydrocephalus.ORBITS: The orbits are unremarkable.SINUSES AND MASTOIDS: The paranasal sinuses and mastoid air cells are clear.BONES: No fracture.SOFT TISSUES: Unremarkable.IMPRESSION:No acute intracranial abnormality.While performing the above CT examination, radiation dose reduction wasaccomplished utilizing automated exposure control, adjusting of the mA and kVbased on the patient's body size and/or the use of imperative reconstructivetechniques.Electronically Signed By:Manish Lyons MD , RadiologistDate/Time: 11/10/20 03:43 Name Value Range Interpretation Code Description Data An rce(s) Supporting Document(s) ID Date Data Source [id number] 11/10/2020 04:01:00 AM EST [facility] Name Value Range Interpretation Code Description Data An rce(s) Supporting Document(s) Prothrombin time (PT) 13.0 SECONDS 11.0 - 15.5 [facility] INR in Platelet poor plasma by Coagulation assay 0.94 0.93 - 1. 23 [facility] aPTT in Blood by Coagulation assay 29.8 SECONDS 24.8 - 36.7 [facility] \\BLDo\\INR INTERPRETATION\\BLDx\\ Therapeutic range for Coumadin and related oral anticoagulants. - International Normalized Ratio (INR): 2.0 - 3.0 for Venous Thrombosis, Pulmonary Embolus, Tissue heart valves, Acute OK Atrial Fibrillation, Valvular heart disease and recurrent Systemic Embolism. - International Normalized Ratio (INR): 2.5 - 3.5 for Mechanical Prosthetic valve. ID Date Data Source [id number] 11/10/2020 03:48:00 AM EST [facility] Name Value Range Interpretation Code Description Data An rce(s) Supporting Document(s) [facility] SOURCE Clean Catch [facility] ital COLOR yellow NORMAL: Yellow [facility] ospital CLARITY clear NORMAL: Clear [facility] Ho spital Specific gravity of Urine by Test strip 1.010 1.001 - 1.030 [facility] pH 6 5 - 9 [facility] Glucose [Mass/volume] in Urine by Test strip NORM NORMAL: Negat [facility] Bilirubin.total [Presence] in Urine by Test strip NEG NORMAL: Negative [facility] Ketones [Presence] in Urine by Test strip NEG NORMAL: Negative [facility] Protein [Mass/volume] in Urine by Test strip NEG NORMAL: Negat [facility] Nitrite [Presence] in Urine by Test strip NEG NORMAL: Negative [facility] BLOOD NEG NORMAL: Negative [facility] Leukocyte esterase [Presence] in Urine by Test strip NEG JOAQUIN L: Negative [facility] Urobilinogen [Mass/volume] in Urine by Test strip NOR less ying n 1.0 mg/dL [facility] MICROSCOPIC Not Indicate [facility] H ospital ID Date Data Source [id number] 11/10/2020 03:47:00 AM EST [facility] Name Value Range Interpretation Code Description Data An rce(s) Supporting Document(s) CBC W/AUTOMATED DIFF [facility] COMPLETE BLOOD COUNT Leukocytes [#/volume] in Blood by Automated count 7.0 10^3/uL 4.2 - 1 1.0 [facility] Erythrocytes [#/volume] in Blood by Automated count 4.44 10^6/uL 4. 50 - 6.30 L [facility] Hemoglobin [Mass/volume] in Blood 13.4 g/dL 14.0 - 16.0 L [facility] Hematocrit [Volume Fraction] of Blood by Automated count 38.0 % 4 1.0 - 51.0 L [facility] Erythrocyte mean corpuscular volume [Entitic volume] by Auto mated count 85.6 fL 80.0 - 94.0 [facility] Erythrocyte mean corpuscular hemoglobin [Entitic mass] by Automated count 30.2 pg 27.0 - 34.0 [facility] Erythrocyte mean corpuscular hemoglobin concentration [Mass/volume] by Automated count 35.3 g/dL 31.0 - 36.0 [facility] Erythrocyte distribution width [Ratio] by Automated count 11.9 % 11.5 - 14.8 [facility] Platelets [#/volume] in Blood by Automated count 279 10^3/uL 150 - 45 0 [facility] Platelet mean volume [Entitic volume] in Blood by Automated count 8.6 fL 7.4 - 10.4 [facility] Neutrophils/100 leukocytes in Blood by Automated count 32.9 % 37. 0 - 80.0 L [facility] Lymphocytes/100 leukocytes in Blood by Manual count 48.7 % 25.0 - 40.0 H [facility] Monocytes/100 leukocytes in Blood by Automated count 9.3 % 3.0 - 8.0 H [facility] Eosinophils/100 leukocytes in Blood by Automated count 7.7 % 0.0 - 7.0 H [facility] Basophils/100 leukocytes in Blood by Automated count 1.1 % 0.0 - 2.0 [facility] %IG 0.3 % 0.0 - 0.0 H [facility] %NRBC 0.0 % 0.0 - 0.0 [facility] al Neutrophils [#/volume] in Blood by Automated count 2.30 10^3/uL 2.00 - 6.90 [facility] Lymphocytes [#/volume] in Blood by Automated count 3.41 10^3/uL 0.60 - 3.40 H [facility] Monocytes [#/volume] in Blood by Automated count 0.65 10^3/uL 0.00 - 0.90 [facility] Eosinophils [#/volume] in Blood by Automated count 0.54 10^3/uL 0.00 - 0.70 [facility] Basophils [#/volume] in Blood by Automated count 0.08 10^3/uL 0.00 - 0.20 [facility] #IG 0.02 10^3/uL 0.00 - 0.10 [facility] H ospital #NRBC 0.00 10^3/uL 0.00 - 0.00 [facility] ospital MANUAL DIFF NOT INDICATED [facility] RBC MORPH NOT INDICATED [facility] spital ID Date Data Source [id number] 11/10/2020 04:24:00 AM [facility] Name Value Range Interpretation Code Description Data An rce(s) Supporting Document(s) Thyrotropin [Units/volume] in Serum or Plasma by Detec tion limit <= 0.05 mIU/L 2.23 uIU/mL 0.47 - 5.01 [facility] ID Date Data Source [id number] 11/10/2020 04:24:00 AM [facility] Value Range Interpretation Code Description Data An rce(s) Supporting Document(s) Magnesium [Mass/volume] in Serum or Plasma 2.1 MG/DL 1.7 - 2.2 [facility] ID Date Data Source [id number] 11/10/2020 04:24:00 AM [facility] Name Value Range Interpretation Code Description Data An rce(s) Supporting Document(s) COMPREHENSIVE METABOLIC PANEL [facility] COMPREHENSIVE METABOLIC PANEL Sodium [Moles/volume] in Serum or Plasma 138 mEq/L 134 - 153 [facility] Potassium [Moles/volume] in Serum or Plasma 3.8 mEq/L 3.6 - 5.0 [facility] Chloride [Moles/volume] in Serum or Plasma 100 mEq/L 98 - 107 [facility] Carbon dioxide, total [Moles/volume] in Serum or Plasma 27 MEQ/L 22 - 30 [facility] Glucose [Mass/volume] in Serum or Plasma 105 MG/DL 70 - 99 H [facility] BUN 16 MG/DL 7 - 21 [facility] Creatinine [Mass/volume] in Serum or Plasma 1.2 MG/DL 0.7 - 1.5 [facility] BUN/CREAT 13 8 - 27 [facility] Protein [Mass/volume] in Serum or Plasma 7.6 G/DL 6.3 - 8.2 [facility] Albumin [Mass/volume] in Serum or Plasma 4.7 G/DL 3.9 - 5.0 [facility] Globulin [Mass/volume] in Serum by calculation 2.9 GM/DL 2.4 - 3.2 [facility] A/G RATIO 1.6 0.8 - 2.0 [facility] Calcium [Mass/volume] in Serum or Plasma 9.5 MG/DL 8.4 - 10.2 [facility] Bilirubin.total [Mass/volume] in Serum or Plasma <0.7 MG/DL 0.2 - 1.3 [facility] Alkaline phosphatase [Enzymatic activity/volume] in Serum or Plasma 71 U/L 38 - 126 [facility] Aspartate aminotransferase [Enzymatic activity/volume] in Serum or Plasma 20 U/L 5 - 40 [facility] Alanine aminotransferase [Enzymatic activity/volume] in Seru m or Plasma 20 U/L 7 - 56 [facility] Anion gap 3 in Serum or Plasma 11.0 mmol/L 8.0 - 16.0 [facility] AGE 60 yrs [facility] NON-AA GFR >60 mL/min [facility] ital AFR AMER GFR >60 mL/min [facility] Ho spital Male GFR In terprentation 20-49 yrs >60 mL/min Normal 50-59 yrs >56 mL/min Normal 60-69 yrs >49 mL/min Normal 70-79yrs >42 mL/min Normal 80 and above >35 mL/min Normal Female GFR Interpretation 20-39 yrs >60 mL/min Normal 40-49 yrs >58 mL/min Normal 50-59 yrs >51 mL/min Normal 60-69 yrs >45 mL/min Normal 70-79 yrs >39 mL/min Normal 80 and above >32 mL/min Normal ID Date Data Source [id number] 11/10/2020 04:15:00 AM [facility] Name Value Range Interpretation Code Description Data An rce(s) Supporting Document(s) TROPONIN T <0.01 NG/ML 0.00 - 0.10 [facility] ospital TROPONIN T0.1 ng/ml Recommended as the c linical threshold value forTroponin T. ID Date Data Source [id number] 11/10/2020 04:01:00 AM [facility] Name Value Range Interpretation Code Description Data An rce(s) Supporting Document(s) Prothrombin time (PT) 13.0 SECONDS 11.0 - 15.5 [facility] INR in Platelet poor plasma by Coagulation assay 0.94 0.93 - 1. 23 [facility] \\BLDo\\INR INTERPRETATION\\BLDx\\ Therapeutic range for Coumadin and related oral anticoagulants. - International Normalized Ratio (INR): 2.0 - 3.0 for Venous Thrombosis, Pulmonary Embolus, Tissue heart valves, Acute OK, Atrial Fibrillation, Valvular heart disease and recurrent Systemic Embolism. -International Normalized Ratio (INR): 2.5 - 3.5 for Mechanical Prosthetic valve. ID Date Data Source [id number] 07/26/2020 04:15:00 PM EDT [facility] Name Value Range Interpretation Code Description Data An rce(s) Supporting Document(s) Red Blood Count 4.11 4.30-6.10 [facility] ([facility]) White Blood Count 7.1 4.0-10.0 [facility] ([facility]) Platelets 244 150-450 [facility] Hemoglobin 12.1 [facility] ([facility]) Hematocrit 35.8 [facility] ([facility]) ID Date Data Source [id number] 07/26/2020 04:15:00 PM EDT [facility] ([facility]) Name Value Range Interpretation Code Description Data An rce(s) Supporting Document(s) Sodium 139 MEDENT ([facility] Calcium [Mass/volume] in Serum or Plasma 8.8 MEDENT ([facility]) Carbon dioxide, total [Moles/volume] in Serum or Plasma 31 MEDENT ([facility]) Chloride [Moles/volume] in Serum or Plasma 103 MEDENT ([facility]) Potassium [Moles/volume] in Serum or Plasma 4.7 MEDENT ([facility]) Glucose 122 70-100 [facility] Creatinine 1.34 0.70-1.30 MEDENT ([facility]) Blood Urea Nitrogen 16 7-18 MEDENT ([facility]) Glomerular filtration rate/1.73 sq M.pre dicted [Volume Rate/Area] in Serum or Plasma by Creatinine-based formula (MDRD) Laboratory test result MEDENT ([facility]) Procedure Social History Code Duration Value Status Description Data Source(s ) Smoking 10/31/2020 12:00:00 AM EST Former Smoker completed Former Smoker eCW1 ([facility]) Smoking 09/24/2020 12:00:00 AM EST Former Smoker completed Former Smoker eCW1 ([facility]) Smoking 08/09/2020 12:00:00 AM EDT Former Smoker completed Former Smoker eCW1 ([facility]) Smoking 08/09/2020 12:00:00 AM EDT Former Smoker completed Former Smoker eCW1 ([facility]) Smoking 08/09/2020 12:00:00 AM EDT Patient has never smoked co mpleted Patient has never smoked MEDENT ([facility]) Smoking 04/11/2020 12:00:00 AM EDT Former Smoker completed Former Smoker eCW1 ([facility]) Smoking 01/30/2020 12:00:00 AM EDT Patient is a former smoker completed Patient is a former smoker MEDENT ([facility], ) Vital Signs ID Date Data Source UNK Name Value Range Interpretation Code Description Data Source(s) Systolic blood pressure 127 mm[Hg] 127 mm[Hg] e CW1 ([facility]) Body temperature 98.2 [degF] 98.2 [degF] eCW1 ( [facility]) Respiratory rate 18 /min 18 /min eCW1 ([facility]) Heart rate 63 /min 63 /min eCW1 ([facility]) Body mass index (BMI) [Ratio] 37.73 kg/m2 37.73 kg/m2 eCW1 ([facility]) Body height 70 [in_i] 70 [in_i] eCW1 ([facility]) Body weight 263 [lb_av] 263 [lb_av] eCW1 ([facility]) Diastolic blood pressure 70 mm[Hg] 70 mm[Hg] eCW1 ([facility]) Body surface area Derived from formula 2.34 m2 2.34 m2 [facility] ([facility]) Body weight 119.013 kg 119.013 kg [facility] ([facility]) Dickens body weight 166 [lb_av] 166 [lb_av] MEDEN T ([facility]) Body mass index (BMI) [Ratio] 37.6 kg/m2 37.6 k g/m2 [facility] ([facility]) Body weight 262.38 [lb_av] 262.38 [lb_av] MEDEN T ([facility]) Body height 70 [in_i] 70 [in_i] MEDENT ([facility]) 5'10" Diastolic blood pressure 62 mm[Hg] 62 mm[Hg] [facility] ([facility]) Systolic blood pressure 130 mm[Hg] 130 mm[Hg] M EDENT ([facility]) Diastolic blood pressure 57 mm[Hg] 57 mm[Hg] eCW1 ([facility]) Systolic blood pressure 120 mm[Hg] 120 mm[Hg] e CW1 ([facility]) Body temperature 97.8 [degF] 97.8 [degF] eCW1 ( [facility]) Respiratory rate 18 /min 18 /min eCW1 ([facility]) Heart rate 66 /min 66 /min eCW1 ([facility]) Body mass index (BMI) [Ratio] 37.68 kg/m2 37.68 kg/m2 eCW1 ([facility]) Body height 70 [in_i] 70 [in_i] eCW1 ([facility]) Body weight 262.6 [lb_av] 262.6 [lb_av] eCW1 ([facility]) Diastolic blood pressure--sitting 86 mm[Hg] 86 mm[Hg] MEDENT ([facility]) large cuff, Ra Systolic blood pressure--sitting 132 mm[Hg] 132 mm[Hg] MEDENT ([facility]) large cuff, Ra Heart rate 64 /min 64 /min MED[facility] ([facility]) Body mass index (BMI) [Ratio] 36.9 kg/m2 36.9 k g/m2 MED[facility] ([facility]) Body height 70 [in_i] 70 [in_i] MEDENT ([facility]) 5'10" Body weight 257.00 [lb_av] 257.00 [lb_av] MEDEN T ([facility]) Diastolic blood pressure 81 mm[Hg] 81 mm[Hg] eCW1 ([facility]) Systolic blood pressure 127 mm[Hg] 127 mm[Hg] e CW1 ([facility]) Body temperature 98.5 [degF] 98.5 [degF] eCW1 ( [facility]) Respiratory rate 18 /min 18 /min eCW1 ([facility]) Heart rate 85 /min 85 /min eCW1 ([facility]) Body mass index (BMI) [Ratio] 38.31 kg/m2 38.31 kg/m2 eCW1 ([facility]) Body height 70 [in_i] 70 [in_i] eCW1 ([facility]) Body weight 267 [lb_av] 267 [lb_av] eCW1 ([facility]) Body surface area Derived from formula 2.33 m2 2.33 m2 [facility] ([facility], ) Body weight 117.482 kg 117.482 kg [facility] ([facility], ) Dickens body weight 166 [lb_av] 166 [lb_av] MEDEN T ([facility], ) Body mass index (BMI) [Ratio] 37.2 kg/m2 37.2 k g/m2 MEDENT ([facility]) Body weight 259.00 [lb_av] 259.00 [lb_av] MEDEN T ([facility]) Body height 70 [in_i] 70 [in_i] [facility] ([facility]) 5'10" Body temperature 98.8 [degF] 98.8 [degF] [facility] ([facility]) Oxygen saturation in Arterial blood by Pulse oximetry 96 % 96 % [facility] ([facility]) Heart rate 70 /min 70 /min [facility] ([facility]) Diastolic blood pressure 92 mm[Hg] 92 mm[Hg] [facility] ([facility]) Systolic blood pressure 128 mm[Hg] 128 mm[Hg] [facility]) Diastolic blood pressure 79 mm[Hg] 79 mm[Hg] eCW1 ([facility]) Systolic blood pressure 123 mm[Hg] 123 mm[Hg] e CW1 ([facility]) Body temperature 98.3 [degF] 98.3 [degF] eCW1 ( [facility]) Respiratory rate 16 /min 16 /min eCW1 ([facility]) Heart rate 63 /min 63 /min eCW1 ([facility]) Body mass index (BMI) [Ratio] 36.58 kg/m2 36.58 kg/m2 W1 ([facility]) Body height 70 [in_us] 70 [in_us] eCW1 ([facility]) Body weight Measured 255 [lb_av] 255 [lb_av] eC W1 ([facility]) Diastolic blood pressure 77 mm[Hg] 77 mm[Hg] eCW1 ([facility]) Systolic blood pressure 132 mm[Hg] 132 mm[Hg] e CW1 ([facility]) Body temperature 98.9 [degF] 98.9 [degF] eCW1 ( [facility]) Respiratory rate 16 /min 16 /min eCW1 ([facility]) Heart rate 88 /min 88 /min eCW1 ([facility]) Body mass index (BMI) [Ratio] 36.15 kg/m2 36.15 kg/m2 eCW1 ([facility]) Body height 70 [in_us] 70 [in_us] eCW1 ([facility]) Body weight Measured 252 [lb_av] 252 [lb_av] eC W1 ([facility]) Body mass index (BMI) [Ratio] 36.3 kg/m2 36.3 k g/m2 MED[facility] ([facility] Body weight 253.00 [lb_av] 253.00 [lb_av] MEDEN T ([facility] Body height 70 [in_i] 70 [in_i] [facility] ([facility] 5'10" Oxygen saturation in Arterial blood by Pulse oximetry 98 % 98 % [facility] ([facility] Heart rate 72 /min 72 /min [facility] ([facility] Diastolic blood pressure 80 mm[Hg] 80 mm[Hg] MED[facility] ([facility] Systolic blood pressure 124 mm[Hg] 124 mm[Hg] M EDENT ([facility] Diastolic blood pressure 77 mm[Hg] 77 mm[Hg] eCW1 ([facility]) Systolic blood pressure 134 mm[Hg] 134 mm[Hg] e CW1 ([facility]) Body temperature 98.9 [degF] 98.9 [degF] eCW1 ( [facility]) Respiratory rate 16 /min 16 /min eCW1 ([facility]) Heart rate 65 /min 65 /min eCW1 ([facility]) Body mass index (BMI) [Ratio] 36.44 kg/m2 36.44 kg/m2 eCW1 ([facility]) Body height 70 [in_us] 70 [in_us] eCW1 ([facility]) Body weight Measured 254 [lb_av] 254 [lb_av] eC W1 ([facility]) Patient Treatment Plan of Care Planned Activity Planned Date Details Description Data Source (s) 30 ACTUAT fluticasone furoate 0.1 MG/ACTUAT Dry Powder Inhaler [Arnuity] 08/14/2020 12:00:00 AM EST eCW1 ([facility]) 30 ACTUAT fluticasone furoate 0.1 MG/ACTUAT Dry Powder Inhaler [Arnuity] 08/14/2020 12:00:00 AM EST eCW1 ([facility]) 30 ACTUAT fluticasone furoate 0.1 MG/ACTUAT Dry Powder Inhaler [Arnuity] 08/14/2020 12:00:00 AM EST eCW1 ([facility]) 28 ACTUAT Fluticasone propionate 0.1 MG/ACTUAT Dry Pow doris Inhaler [Flovent] 08/08/2020 12:00:00 AM EDT eCW1 ([facility]) 28 ACTUAT Fluticasone propionate 0.1 MG/ACTUAT Dry Pow doris Inhaler [Flovent] 08/08/2020 12:00:00 AM EDT eCW1 ([facility])
[2020-11-10] MEDS ORDERED: NORCO, ANEXSIA 5/325MG TABLET (HYDROcodone/ACETAMINOPHEN) PO ONE (09:45)
[2020-11-10] MEDS ORDERED: TRAZ-257 PO (09:49)
[2020-11-10] MEDS ORDERED: BACL1TAB9 PO (09:49)
[2020-11-10] MEDS ORDERED: AMLO1TAB24 PO (09:49)
[2020-11-10] MEDS ORDERED: ASPI81TA26 PO (09:49)
[2020-11-10] MEDS ORDERED: HYDR-4517 PO (09:49)
--- NOTE | 2020-11-10 10:07 | REP ---
INDICATION: left sided weakness. COMPARISON: Comparison portable chest x-ray 26 July 2020. TECHNIQUE: Portable upright AP chest radiograph. FINDINGS: The lungs are well inflated and free of infiltrate. Pleural angles are sharp. Heart size is normal. Pulmonary vasculature is not increased. IMPRESSION: No active disease. <Electronically signed by Escobar Crews > 11/10/20 1008
[2020-11-10 10:36] LABS: RSV AMPLIFICATION NEGATIVE (NEGATIVE)
[2020-11-10] MEDS ORDERED: traZODone 100 MG TAB PO PRN (11:15)
--- OUTSIDE RECORDS SUMMARY | 2020-11-10 11:34 | CCD ---
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 Result Flag Units (Reference) CT [place] [address] ---------N SEPIDEH--------- NUMBER SEX AGE ADMIT DISC. XRAY# F/C TYPE DWAYNE Schafer [id number] M 60 11/10/20 106197 X6B E/R DATE OF : 1960 M/R# [id number] PH#: [phone] TR-03 LOCATION: EMERGENCY DEPT TRANSCRIBED: 11/10/20 6:[address] [place] [id number] COMPLETED:11/10/20 6:33 domi 3352 Reason(s): left side weakness -- PHYSICIAN: KENY -- -- R A D I O L O G Y R E P O R T 5 Clinical Report - Physicians/Mid Levels [facility] Emergency Department [address] [place] [address] Phone #: ext- [phone] 11/10/2020 02:20 Patient: PARIS RICE Sex: M : 1960 Age: 60y -- PATIENT HISTORY: Left side weakness. Accumulated DLP(COW/Carotid Combined) - 1876.0 mGy*cm, Estimated DLP-1880.6 mGy*cm. [id number], 75mL, [id number], 06/02. BUN-16, Createnine-1.2, GFR >60. Male. Time Out performed. Correct patient with 2 identifiers, type and amount of contrast used, correct body part and side all verified prior to examination. Images sent to [facility] for review. - RLB / RIGHT EXTERNAL CAROTID (DICOM Hx) EXAM: CTA Neck with Intravenous Contrast. -- CLINICAL HISTORY:Left side weakness. Accumulated DLP(COW/Carotid Combined) - 1876.0 mGy*cm, Estimated DLP-1880.6 mGy*cm. DFN195, 75mL, [id number], 06/02. BUN-16, Createnine-1.2, GFR >60. Male. Time Out performed. Correct patient with 2 identifiers, type and amount of contrast used, correct body part and side all verified prior to examination. Images sent to [facility] for review. - RLB -- TECHNIQUE: Axial [...] -- CONTRAST: Contrast injected without incident. With; [id number], 75mL -- COMPARISON:None provided. -- -- FINDINGS: [...] Final 6 Clinical Report - Physicians/Mid Levels [facility] Emergency Department [address] [place] [address] Phone #: ext- [phone] 11/10/2020 02:20 Patient: PARIS RICE Sex: M : 1960 Age: 60yresultsCT CTA HEAD W CONTRAST INC PPReason(s): left side weaknessTRANSPORTATION: WC IV? IV?(Yes) O2? Oxygen?(No) Ro Test Result Flag Units (Reference) CT CTA HEAD W CONTRAST INC PP [place] [id number] [place] [address] ---------NAME--------- NUMBER SEX AGE ADMIT DISC. XRAY# F/C TYPE DWAYNE Schafer [id number] M 60 11/10/20 [id number] X6B E/R DATE OF : 1960 M/R# [id number] #: [id number] TR-03 LOCATION: EMERGENCY DEPT TRANSCRIBED: 11/10/20 6:[address] [place] [id number] COMPLETED:11/10/20 6:31 domi 3353 Reason(s): left side weakness -- PHYSICIAN: KENY -- -- R A D I O L O G Y R E P O R T -- PATIENT HISTORY: Left side weakness. Accumulated DLP(COW/Carotid Combined) - 1875.0 mGy*cm, Estimated DLP-1880.6 mGy*cm. TBB127, 75mL, [id number], 06/02. BUN-16, Createnine-1.2, GFR >60. Male. Time Out performed. Correct patient with 2 identifiers, type and amount of contrast used, correct body part and side all verified prior to examination. Images sent to [facility] for review. - RLB / SAG (DICOM Hx) EXAMINATION CTA Head With Intravenous Contrast -- HISTORYLeft side weakness. Accumulated DLP(COW/Carotid Combined) - 1876.0 mGy*cm, Estimated DLP-1880.6 mGy*cm. HRR493, 75mL, [id number], 06/02. BUN-16, Createnine-1.2, GFR >60. Male. Time Out performed. Correct patient with 2 identifiers, type and amount of contrast used, correct body part and side all verified prior to examination. Images sent to [facility] for review. - RLB (Hx) / SAG [...] -- CONTRAST Contrast injected without incident. With; WME975, 75mL -- -- COMPARISON CT -- -- [...] aneurysm. 7 Clinical Report - Physicians/Mid Levels [facility] Emergency Department [address] [place] [address] Phone #: ext- [phone] 11/10/2020 02:20 [id number] Sex: M : 1960 Age: 60y -- [...] Room: ED Exam CT HEAD W/[place] [address] ---------NAME--------- NUMBER SEX AGE ADMIT DISC. XRAY# F/C TYPE DWAYNE Schafer [id number] M 60 11/10/20 [id number] X6B E/R DATE OF : 1960 M/R# [id number] #: [phone] TR-03 LOCATION: EMERGENCY DEPT TRANSCRIBED: 11/10/20 3:[address] HEAD W/O CONTRAST 05474 COMPLETED:11/10/20 3:44 domi 3350 Reason(s): Head Injury [...] FINDINGS: 8 Clinical Report - Physicians/Mid Levels [facility] Emergency Department [address] [place] [address] Phone #: [phone]- [phone] 11/10/2020 02:20 Patient: PARIS RICE Sex: M [...] Units (Reference) CT LUMBAR SP W/[place] [address] ---------NAME--------- NUMBER SEX AGE ADMIT DISC. XRAY# F/C TYPE DWAYNE TOLEDO Hanh [id number] M 60 11/10/20 487305 X6B E/R DATE OF : 1960 M/R# [id number] #: [phone] TR-03 LOCATION: EMERGENCY DEPT TRANSCRIBED: 11/10/20 4:[address] LUMBAR SP W/O CONT 56769 COMPLETED:11/10/20 4:21 domi 3351 Reason(s): left hip [...] generated. 9 Clinical Report - Physicians/Mid Levels [facility] Emergency Department [address] [place] [address] Phone #: ext- [phone] 11/10/2020 02:20 Patient: [...] lower 10 Clinical Report - Physicians/Mid Levels [facility] Emergency Department [address] [place] [address] Phone #: yhd- [phone] 11/10/2020 02:20 Patient: PARIS RICE Sex: M [...] process. He needs an MRI. I called [facility] and discussed the case with Dr. Doyle. He agreed to accept pt to the ED. I discussed with pt. He is comfortable with the plan. Patient/family counseled. Disposition: Transferred to [facility]. Condition: stable.CLINICAL IMPRESSION Left hemiparesis with weakness of the left lower extremity. TIA vs Stroke.(Electronically signed by Joaquin Abdul MD 11/10/2020 07:21) Name Value Range Interpretation Code Description Data An rce(s) Supporting Document(s) ID Date Data Source [id number] 11/10/2020 07:40:00 AM [facility] NOT DETECTEDNOT DETECTED{ PROC EDURAL CONTROL VALID [...] rce(s) Supporting Document(s) ID Date Data Source [id number] 11/10/2020 06:33:00 [place] [address] ---------NAME--------- NUMBER SEX AGE ADMIT DISC. XRAY# F/C TYPE DWAYNE Schafer [id number] M 60 11/10/20 [id number] X6B E/R DATE OF : 1960 M/R# [id number] PH#: [phone] TR-03 LOCATION: EMERGENCY DEPT TRANSCRIBED: 11/10/20 6:[address] [place] [id number] COMPLETED:11/10/20 6:33 domi 3352 Reason(s): left side weakness PHYSICIAN: KENY======= R A D I O L O G Y R E P O R T PATIENT HISTORY:Left side weakness. Accumulated DLP(COW/Carotid Combined) - 1876.0 mGy*cm,Estimated DLP-1880.6 mGy*cm. VDG727, 75mL, [id number], 06/02. BUN-16,Createnine-1.2, GFR >60. Male.Time Out performed. Correct patient with 2 identifiers, type and amount ofcontrast used, correct body part and side all verified prior to examination.Images sent to [facility] for review. - RLB / RIGHT EXTERNAL CAROTID (DICOM Hx)EXAM: CTA Neck with Intravenous Contrast.CLINICAL HISTORY:Left side weakness. Accumulated DLP(COW/Carotid Combined) -1876.0 mGy*cm, Estimated DLP-1880.6 mGy*cm. UMB043, 75mL, [id number], 06/02.BUN-16, Createnine-1.2, GFR >60. Male. Time Out performed. Correct patient with2 identifiers, type and amount of contrast used, correct body part and side allverified prior to examination. Images sent to [facility] for review. - RLBTECHNIQUE: Axial CTA images [...] asreasonably achievable.CONTRAST: Contrast injected without incident. With; KUK493, 75mLCOMPARISON:None provided.FINDINGS:VASCULATURE:Internal carotid arteries: No stenosis by [...] rce(s) Supporting Document(s) ID Date Data Source [id number] 11/10/2020 06:30:00 AM [facility] [address] [place] [address] ---------NAME--------- NUMBER SEX AGE ADMIT DISC. XRAY# F/C TYPE DWAYNE Schafer [id number] M 60 11/10/20 296316 X6B E/R DATE OF : 1960 M/R# [id number] PH#: [phone] TR-03 LOCATION: EMERGENCY DEPT TRANSCRIBED: 11/10/20 6:[address] [place] [id number] COMPLETED:11/10/20 6:31 domi 3353 Reason(s): left side weakness PHYSICIAN: KENY======= R A D I O L O G Y R E P O R T PATIENT HISTORY:Left side weakness. Accumulated DLP(COW/Carotid Combined) - 1876.0 mGy*cm,Estimated DLP-1880.6 mGy*cm. ANE498, 75mL, [id number], 06/02. BUN-16,Createnine-1.2, GFR >60. Male.Time Out performed. Correct patient with 2 identifiers, type and amount ofcontrast used, correct body part and side all verified prior to examination.Images sent to [facility] for review. - RLB / SAG (DICOM Hx)EXAMINATION CTA Head With Intravenous ContrastHISTORYLeft side weakness. Accumulated DLP(COW/Carotid Combined) - 1876.0mGy*cm, Estimated DLP- 1880.6 mGy*cm. KZZ553, 75mL, [id number], 06/02. BUN-16,Createnine-1.2, GFR >60. Male. Time Out performed. Correct patient with 2identifiers, type and amount of contrast used, correct body part and side allverified prior to examination. Images sent to [facility] for review. - RLB (Hx) /SAG (DICOM Hx) (DICOM Hx)TECHNIQUE Axial CTA images of the head with intravenous contrast in the arterialphase. Coronal and sagittal reformatted images were generated and reviewed. 3-Dreformatted images generated on an independent workstation were also reviewed.NASCET criteria were used in assessment of stenosis. [facility] CT [facility] use dose modulation, iterative reconstruction, and/or weight- baseddosing when appropriate to reduce radiation dose to as low as reasonablyachievable.CONTRAST Contrast injected without incident. With; CMH135, 75mLCOMPARISON CTFINDINGS:INTERNAL CAROTID ARTERIES The intracranial ICAs [...] rce(s) Supporting Document(s) ID Date Data Source [id number] 11/10/2020 04:20:00 AM EST [facility] [address] [place] [address] ---------NAME--------- NUMBER SEX AGE ADMIT DISC. XRAY# F/C TYPE DWAYNE Schafer [id number] M 60 11/10/20 [id number] X6B E/R DATE OF : 1960 M/R# [id number] #: [id number] TR-03 LOCATION: EMERGENCY DEPT TRANSCRIBED: 11/10/20 4:[address] LUMBAR SP W/O CONT [id number] COMPLETED:11/10/20 4:21 domi 3351 Reason(s): left hip [...] likely disk bulges at the L3/L4 and L4/S0mbopwp. There is li ethel some spinal canal [...] rce(s) Supporting Document(s) ID Date Data Source [id number] 11/10/2020 03:43:[address] [address] ---------NAME--------- NUMBER SEX AGE ADMIT DISC. XRAY# F/C TYPE DWAYNE Schafer [id number] M 60 11/10/20 [id number] X6B E/R DATE OF : 1960 M/R# [id number] PH#: [phone] TR-03 LOCATION: EMERGENCY DEPT TRANSCRIBED: 11/10/20 3:[address] HEAD W/O CONTRAST [id number] COMPLETED:11/10/20 3:44 domi 3350 Reason(s): Head Injury [...] rce(s) Supporting Document(s) ID Date Data Source [id number] 11/10/2020 04:01:00 AM EST [facility] Name Value Range Interpretation Code Description Data An rce(s) Supporting Document(s) Prothrombin time (PT) 13.0 SECONDS 11.0 - 15.5 [facility] INR in Platelet poor plasma by Coagulation assay 0.94 0.93 - 1. 23 [facility] aPTT in Blood by Coagulation assay 29.8 SECONDS 24.8 - 36.7 [facility] \\BLDo\\INR INTERPRETATION\\BLDx\\ Therapeutic range for Coumadin and related oral anticoagulants. - International Normalized Ratio (INR): 2.0 - 3.0 for Venous Thrombosis, Pulmonary Embolus, Tissue heart valves, Acute NV Atrial Fibrillation, Valvular heart disease and recurrent Systemic Embolism. - International Normalized Ratio (INR): 2.5 - 3.5 for Mechanical Prosthetic valve. ID Date Data Source [id number] 11/10/2020 03:48:00 AM EST [facility] Name Value Range Interpretation Code Description Data An rce(s) Supporting Document(s) [facility] URINALYSIS SOURCE Clean Catch [facility] ital COLOR yellow NORMAL: Yellow [facility] ospital CLARITY clear NORMAL: Clear [facility] Ho spital Specific gravity of Urine by Test strip 1.010 1.001 - 1.030 [facility] pH 6 5 - 9 [facility] Glucose [Mass/volume] in Urine by Test strip NORM NORMAL: Negat [facility] Bilirubin.total [Presence] in Urine by Test strip NEG NORMAL: Negative [facility] Ketones [Presence] in Urine by Test strip NEG NORMAL: Negative [facility] Protein [Mass/volume] in Urine by Test strip NEG NORMAL: Negat [facility] Nitrite [Presence] in Urine by Test strip NEG NORMAL: Negative [facility] BLOOD NEG NORMAL: Negative [facility] Leukocyte esterase [Presence] in Urine by Test strip NEG JOAQUIN L: Negative [facility] Urobilinogen [Mass/volume] in Urine by Test strip NOR less ying n 1.0 mg/dL [facility] MICROSCOPIC Not Indicate [facility] o[facility] ID Date Data Source [id number] 11/10/2020 03:47:00 AM EST [facility] Name Value Range Interpretation Code Description Data An rce(s) Supporting Document(s) CBC W/AUTOMATED DIFF [facility] COMPLETE BLOOD COUNT Leukocytes [#/volume] in Blood by Automated count 7.0 10^3/uL 4.2 - 1 1.0 [facility] Erythrocytes [#/volume] in Blood by Automated count 4.44 10^6/uL 4. 50 - 6.30 L [facility] Hemoglobin [Mass/volume] in Blood 13.4 g/dL 14.0 - 16.0 L [facility] Hematocrit [Volume Fraction] of Blood by Automated count 38.0 % 4 1.0 - 51.0 L [facility] Erythrocyte mean corpuscular volume [Entitic volume] by Auto mated count 85.6 fL 80.0 - 94.0 [facility] Erythrocyte mean corpuscular hemoglobin [Entitic mass] by Automated count 30.2 pg 27.0 - 34.0 [facility] Erythrocyte mean corpuscular hemoglobin concentration [Mass/volume] by Automated count 35.3 g/dL 31.0 - 36.0 [facility] Erythrocyte distribution width [Ratio] by Automated count 11.9 % 11.5 - 14.8 [facility] Platelets [#/volume] in Blood by Automated count 279 10^3/uL 150 - 45 0 [facility] Platelet mean volume [Entitic volume] in Blood by Automated count 8.6 fL 7.4 - 10.4 [facility] Neutrophils/100 leukocytes in Blood by Automated count 32.9 % 37. 0 - 80.0 L [facility] Lymphocytes/100 leukocytes in Blood by Manual count 48.7 % 25.0 - 40.0 H [facility] Monocytes/100 leukocytes in Blood by Automated count 9.3 % 3.0 - 8.0 H [facility] Eosinophils/100 leukocytes in Blood by Automated count 7.7 % 0.0 - 7.0 H [facility] Basophils/100 leukocytes in Blood by Automated count 1.1 % 0.0 - 2.0 [facility] %IG 0.3 % 0.0 - 0.0 H [facility] %NRBC 0.0 % 0.0 - 0.0 [facility] al Neutrophils [#/volume] in Blood by Automated count 2.30 10^3/uL 2.00 - 6.90 [facility] Lymphocytes [#/volume] in Blood by Automated count 3.41 10^3/uL 0.60 - 3.40 H [facility] Monocytes [#/volume] in Blood by Automated count 0.65 10^3/uL 0.00 - 0.90 [facility] Eosinophils [#/volume] in Blood by Automated count 0.54 10^3/uL 0.00 - 0.70 [facility] Basophils [#/volume] in Blood by Automated count 0.08 10^3/uL 0.00 - 0.20 [facility] #IG 0.02 10^3/uL 0.00 - 0.10 [facility] #NRBC 0.00 10^3/uL 0.00 - 0.00 [facility] ospital MANUAL DIFF NOT INDICATED [facility] RBC MORPH NOT INDICATED [facility] spital ID Date Data Source [id number] 11/10/2020 04:24:00 AM [facility] Name Value Range Interpretation Code Description Data An rce(s) Supporting Document(s) Thyrotropin [Units/volume] in Serum or Plasma by Detec tion limit <= 0.05 mIU/L 2.23 uIU/mL 0.47 - 5.01 [facility] ID Date Data Source [id number] 11/10/2020 04:24:[address] [facility] Value Range Interpretation Code Description Data An rce(s) Supporting Document(s) Magnesium [Mass/volume] in Serum or Plasma 2.1 MG/DL 1.7 - 2.2 [facility] ID Date Data Source [id number] 11/10/2020 04:24:00 AM [facility] Name Value Range Interpretation Code Description Data An rce(s) Supporting Document(s) COMPREHENSIVE METABOLIC PANEL [facility] COMPREHENSIVE METABOLIC PANEL Sodium [Moles/volume] in Serum or Plasma 138 mEq/L 134 - 153 [facility] Potassium [Moles/volume] in Serum or Plasma 3.8 mEq/L 3.6 - 5.0 [facility] Chloride [Moles/volume] in Serum or Plasma 100 mEq/L 98 - 107 [facility] Carbon dioxide, total [Moles/volume] in Serum or Plasma 27 MEQ/L 22 - 30 [facility] Glucose [Mass/volume] in Serum or Plasma 105 MG/DL 70 - 99 H [facility] BUN 16 MG/DL 7 - 21 [facility] Creatinine [Mass/volume] in Serum or Plasma 1.2 MG/DL 0.7 - 1.5 [facility] BUN/CREAT 13 8 - 27 [facility] Protein [Mass/volume] in Serum or Plasma 7.6 G/DL 6.3 - 8.2 [facility] Albumin [Mass/volume] in Serum or Plasma 4.7 G/DL 3.9 - 5.0 [facility] Globulin [Mass/volume] in Serum by calculation 2.9 GM/DL 2.4 - 3.2 [facility] A/G RATIO 1.6 0.8 - 2.0 [facility] Calcium [Mass/volume] in Serum or Plasma 9.5 MG/DL 8.4 - 10.2 [facility] Bilirubin.total [Mass/volume] in Serum or Plasma <0.7 MG/DL 0.2 - 1.3 [facility] Alkaline phosphatase [Enzymatic activity/volume] in Serum or Plasma 71 U/L 38 - 126 [facility] Aspartate aminotransferase [Enzymatic activity/volume] in Serum or Plasma 20 U/L 5 - 40 [facility] Alanine aminotransferase [Enzymatic activity/volume] in Seru m or Plasma 20 U/L 7 - 56 [facility] Anion gap 3 in Serum or Plasma 11.0 mmol/L 8.0 - 16.0 [facility] AGE 60 yrs [facility] NON-AA GFR >60 mL/min [facility] ital AFR AMER GFR >60 mL/min [facility] spital Male GFR In terprentation 20-49 [...] >32 mL/min Normal ID Date Data Source [id number] 11/10/2020 04:15:00 AM [facility] Name Value Range Interpretation Code Description Data An rce(s) Supporting Document(s) TROPONIN T <0.01 NG/ML 0.00 - 0.10 [facility] ospital TROPONIN T0.1 ng/ml Recommended as the c linical threshold value forTroponin T. ID Date Data Source [id number] 11/10/2020 04:01:00 AM [facility] Name Value Range Interpretation Code Description Data An rce(s) Supporting Document(s) Prothrombin time (PT) 13.0 SECONDS 11.0 - 15.5 [facility] INR in Platelet poor plasma by Coagulation assay 0.94 0.93 - 1. 23 [facility] \\BLDo\\INR INTERPRETATION\\BLDx\\ Therapeutic range for Coumadin and related oral anticoagulants. - International Normalized Ratio (INR): 2.0 - 3.0 for Venous Thrombosis, Pulmonary Embolus, Tissue heart valves, Acute NV, Atrial Fibrillation, Valvular heart disease and recurrent Systemic Embolism. -International Normalized Ratio (INR): 2.5 - 3.5 for Mechanical Prosthetic valve. ID Date Data Source [id number] 07/26/2020 04:15:00 PM EDT [facility] Name Value Range Interpretation Code Description Data An rce(s) Supporting Document(s) Red Blood Count 4.11 4.30-6.10 [facility] ([facility]) White Blood Count 7.1 4.0-10.0 [facility] ([facility]) Platelets 244 150-450 [facility] ([facility]) Hemoglobin 12.1 [facility] ([facility]) Hematocrit 35.8 [facility] ([facility]) ID Date Data Source [id number] 07/26/2020 04:15:00 PM EDT [facility] ([facility]) Name Value Range Interpretation Code Description Data An rce(s) Supporting Document(s) Sodium 139 [facility]) Calcium [Mass/volume] in Serum or Plasma 8.8 [facility] ([facility]) Carbon dioxide, total [Moles/volume] in Serum or Plasma 31 [facility] ([facility]) Chloride [Moles/volume] in Serum or Plasma 103 [facility] ([facility]) Potassium [Moles/volume] in Serum or Plasma 4.7 [facility] ([facility]) Glucose 122 70-100 [facility] Creatinine 1.34 0.70-1.30 [facility] ([facility] [facility]) Blood Urea Nitrogen 16 7-18 MEDENT ([facility]) Glomerular filtration rate/1.73 sq M.pre dicted [Volume Rate/Area] in Serum or Plasma by Creatinine-based formula (MDRD) Laboratory test result MEDENT ([facility]) Procedure Social History Code Duration Value Status Description Data Source(s ) Smoking 10/31/2020 12:00:00 AM EST Former Smoker completed Former Smoker eCW1 ([facility]) Smoking 09/24/2020 12:00:00 AM EST Former Smoker completed Former Smoker eCW1 ([facility]) Smoking 08/09/2020 12:00:00 AM EDT Former Smoker completed Former Smoker eCW1 ([facility]) Smoking 08/09/2020 12:00:00 AM EDT Former Smoker completed Former Smoker eCW1 ([facility]) Smoking 08/09/2020 12:00:00 AM EDT Patient has never smoked co mpleted Patient has never smoked MEDENT ([facility]) Smoking 04/11/2020 12:00:00 AM EDT Former Smoker completed Former Smoker eCW1 ([facility]) Smoking 01/30/2020 12:00:00 AM EDT Patient is a former smoker completed Patient is a former smoker MEDENT ([facility], ) Vital Signs ID Date Data Source UNK Name Value Range Interpretation Code Description Data Source(s) Systolic blood pressure 127 mm[Hg] 127 mm[Hg] e CW1 ([facility]) Body temperature 98.2 [degF] 98.2 [degF] eCW1 ( [facility]) Respiratory rate 18 /min 18 /min eCW1 ([facility]) Heart rate 63 /min 63 /min eCW1 ([facility]) Body mass index (BMI) [Ratio] 37.73 kg/m2 37.73 kg/m2 eCW1 ([facility]) Body height 70 [in_i] 70 [in_i] eCW1 ([facility]) Body weight 263 [lb_av] 263 [lb_av] eCW1 ([facility]) Diastolic blood pressure 70 mm[Hg] 70 mm[Hg] eCW1 ([facility]) Body surface area Derived from formula 2.34 m2 2.34 m2 [facility] ([facility]) Body weight 119.013 kg 119.013 kg [facility] ([facility]) [place] body weight 166 [lb_av] 166 [lb_av] MEDEN T ([facility]) Body mass index (BMI) [Ratio] 37.6 kg/m2 37.6 k g/m2 [facility] ([facility]) Body weight 262.38 [lb_av] 262.38 [lb_av] MEDEN T ([facility]) Body height 70 [in_i] 70 [in_i] MEDENT ([facility]) 5'10" Diastolic blood pressure 62 mm[Hg] 62 mm[Hg] [facility] ([facility]) Systolic blood pressure 130 mm[Hg] 130 mm[Hg] M EDENT ([facility]) Diastolic blood pressure 57 mm[Hg] 57 mm[Hg] eCW1 ([facility]) Systolic blood pressure 120 mm[Hg] 120 mm[Hg] e CW1 ([facility]) Body temperature 97.8 [degF] 97.8 [degF] eCW1 ( [facility]) Respiratory rate 18 /min 18 /min eCW1 ([facility]) Heart rate 66 /min 66 /min eCW1 ([facility]) Body mass index (BMI) [Ratio] 37.68 kg/m2 37.68 kg/m2 eCW1 ([facility]) Body height 70 [in_i] 70 [in_i] eCW1 ([facility]) Body weight 262.6 [lb_av] 262.6 [lb_av] eCW1 ([facility]) Diastolic blood pressure--sitting 86 mm[Hg] 86 mm[Hg] MEDENT ([facility]) large cuff, Ra Systolic blood pressure--sitting 132 mm[Hg] 132 mm[Hg] MEDENT ([facility]) large cuff, Ra Heart rate 64 /min 64 /min [facility] ([facility]) Body mass index (BMI) [Ratio] 36.9 kg/m2 36.9 k g/m2 MED[facility] ([facility]) Body height 70 [in_i] 70 [in_i] MEDENT ([facility]) 5'10" Body weight 257.00 [lb_av] 257.00 [lb_av] MEDEN T ([facility]) Diastolic blood pressure 81 mm[Hg] 81 mm[Hg] eCW1 ([facility]) Systolic blood pressure 127 mm[Hg] 127 mm[Hg] e CW1 ([facility]) Body temperature 98.5 [degF] 98.5 [degF] eCW1 ( [facility]) Respiratory rate 18 /min 18 /min eCW1 ([facility]) Heart rate 85 /min 85 /min eCW1 ([facility]) Body mass index (BMI) [Ratio] 38.31 kg/m2 38.31 kg/m2 eCW1 ([facility]) Body height 70 [in_i] 70 [in_i] eCW1 ([facility]) Body weight 267 [lb_av] 267 [lb_av] eCW1 ([facility]) Body surface area Derived from formula 2.33 m2 2.33 m2 MEDBRE[facility] ([facility], ) Body weight 117.482 kg 117.482 kg [facility] ) [place] body weight 166 [lb_av] 166 [lb_av] MEDEN T ([facility], ) Body mass index (BMI) [Ratio] 37.2 kg/m2 37.2 k g/m2 MEDENT ([facility]) Body weight 259.00 [lb_av] 259.00 [lb_av] MEDEN T ([facility]) Body height 70 [in_i] 70 [in_i] [facility] ([facility]) 5'10" Body temperature 98.8 [degF] 98.8 [degF] [facility] ([facility]) Oxygen saturation in Arterial blood by Pulse oximetry 96 % 96 % [facility] ([facility]) Heart rate 70 /min 70 /min [facility]) Diastolic blood pressure 92 mm[Hg] 92 mm[Hg] [facility] ([facility]) Systolic blood pressure 128 mm[Hg] 128 mm[Hg] [facility]) Diastolic blood pressure 79 mm[Hg] 79 mm[Hg] eCW1 ([facility]) Systolic blood pressure 123 mm[Hg] 123 mm[Hg] e CW1 ([facility]) Body temperature 98.3 [degF] 98.3 [degF] eCW1 ( [facility]) Respiratory rate 16 /min 16 /min eCW1 ([facility]) Heart rate 63 /min 63 /min eCW1 ([facility]) Body mass index (BMI) [Ratio] 36.58 kg/m2 36.58 kg/m2 W1 ([facility]) Body height 70 [in_us] 70 [in_us] eCW1 ([facility]) Body weight Measured 255 [lb_av] 255 [lb_av] eC W1 ([facility]) Diastolic blood pressure 77 mm[Hg] 77 mm[Hg] eCW1 ([facility]) Systolic blood pressure 132 mm[Hg] 132 mm[Hg] e CW1 ([facility]) Body temperature 98.9 [degF] 98.9 [degF] eCW1 ( [facility]) Respiratory rate 16 /min 16 /min eCW1 ([facility]) Heart rate 88 /min 88 /min eCW1 ([facility]) Body mass index (BMI) [Ratio] 36.15 kg/m2 36.15 kg/m2 eCW1 ([facility]) Body height 70 [in_us] 70 [in_us] eCW1 ([facility]) Body weight Measured 252 [lb_av] 252 [lb_av] eC W1 ([facility]) Body mass index (BMI) [Ratio] 36.3 kg/m2 [...] blood pressure 77 mm[Hg] 77 mm[Hg] eCW1 ([facility]) Systolic blood pressure 134 mm[Hg] 134 mm[Hg] e CW1 ([facility]) Body temperature 98.9 [degF] 98.9 [degF] eCW1 ( [facility]) Respiratory rate 16 /min 16 /min eCW1 ([facility]) Heart rate 65 /min 65 /min eCW1 ([facility]) Body mass index (BMI) [Ratio] 36.44 kg/m2 36.44 kg/m2 eCW1 ([facility]) Body height 70 [in_us] 70 [in_us] eCW1 ([facility]) Body weight Measured 254 [lb_av] 254 [lb_av] eC W1 ([facility]) Patient Treatment Plan of Care Planned Activity Planned Date Details Description Data Source (s) 30 ACTUAT fluticasone furoate 0.1 MG/ACTUAT Dry Powder Inhaler [Arnuity] 08/14/2020 12:00:00 AM EST eCW1 ([facility]) 30 ACTUAT fluticasone furoate 0.1 MG/ACTUAT Dry Powder Inhaler [Arnuity] 08/14/2020 12:00:00 AM EST eCW1 ([facility]) 30 ACTUAT fluticasone furoate 0.1 MG/ACTUAT Dry Powder Inhaler [Arnuity] 08/14/2020 12:00:00 AM EST eCW1 ([facility]) 28 ACTUAT Fluticasone propionate 0.1 MG/ACTUAT Dry Pow doris Inhaler [Flovent] 08/08/2020 12:00:00 AM EDT eCW1 ([facility]) 28 ACTUAT Fluticasone propionate 0.1 MG/ACTUAT Dry Pow doris Inhaler [Flovent] 08/08/2020 12:00:00 AM EDT eCW1 ([facility])
[2020-11-10 12:21] VITALS: BP 152/97
--- NOTE | 2020-11-10 12:36 | HPEPDOC ---
General Date of Admission 11/10/20 Date of Service: Nov 10, 2020 Chief Complaint The patient is a 60-year-old male admitted with a reason for visit of Txf From [facility] For Mri--R/O Cva. 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 Patient complained off feeling unwell when he woke up on 11/08/20. He had numbness, aching , tingling and heaviness of his left lower extremity and left upper extremity. He felt like he has thick skin and he got novocaine. More on the outer aspect of the leg and the arm. He was having trouble raising his arm and leg. He also has decreased sensation on the left side of the abdomen. He also reported that he had a mild headache on the left side of the head on 11/06 adn also on 11/08. His noted blood shot eyes on the 11/08. He headache was not like his usual migraine headaches he used to have years ago. He had a bad night that day could not sleep due to the tingling, numbness so went to [facility] on 11/09/20 and was sent here. He denied any complaints of facial numbness or weakness or any trouble talking or swallowi ng. he is being admitted for evaluation of Stroke. He had CT head, CTA head and CTA neck at vendor. [place] in [place] Labs from [place]: WBC 7.0, Hb 13.4, Plat 279, Glu 105, BUN 16, Creatinine 1.2, LFTs normal. Coags normal CT head: No acute abnormality CTA neck: No significant vessel occlusion CTA Head: No evidence of vessel occlusion, No significant stenosis or saccular aneurysm, CT lumber spine without contrast: Disc bulges at L3/L4 and L4/L5 levels, some spinal canal narrowing at L4/L5 although difficult to visualize. No acute fracture or subluxation. Home Medications Scheduled Amlodipine Besylate (Amlodipine Besylate) 5 Mg Tablet, 5 MG PO DAILY, (Reported) Aspirin (Aspirin EC) 81 Mg Tablet.dr, 81 MG PO DAILY, (Reported) Bupropion Hcl (Bupropion Xl) 150 Mg Tab.er.24h, 150 MG PO DAILY, (Reported) Lisinopril (Lisinopril) 40 Mg Tab, 40 MG PO DAILY, (Reported) Oxybutynin Chloride (Oxybutynin Chloride ER) 10 Mg Tab.er.24, 10 MG PO DAILY, (Reported) Simvastatin (Simvastatin) 40 Mg Tab, 40 MG PO DAILY, (Reported) Scheduled PRN Albuterol Sulfate (Albuterol Sulfate Hfa) 8.5 Gm Hfa.aer.ad, 1 PUFF INH PRN PRN for BRONCHOSPASM, (Reported) Baclofen (Baclofen) 20 Mg Tablet, 20 MG PO QID PRN for MUSCLE SPASMS, (Reported) Hydrocodone/Acetaminophen (Hydrocodone-Acetamin 10-325 mg) 1 Each Tablet, 1 TAB PO QID PRN for PAIN, (Reported) Hydroxyzine HCl (Hydroxyzine HCl) 10 Mg Tablet, 30 MG PO Q6H PRN for ANXIETY, (Reported) Trazodone HCl (Trazodone HCl) 100 Mg Tablet, 100 MG PO QHS PRN for SLEEP, (Reported) Allergies Coded Allergies: ibuprofen (Verified Adverse Reaction, Mild, fever, 09/10/19) Past Medical History Medical History HTN- ECHO 02/24 WITH MILD CONCENTRIC LVH, MOD , LAE, NUC STRESS 2017 NEGATIVE BPH DEPRESSION MIGRAINES KIDNEY STONES PREDIABETES 04/28 HEMOGLOBIN A1C 6.3 HYPERLIPIDEMIA LUMBAR AND CERVICAL SPONDYLOSIS/ Sciatica JAMES STABLE RIGHT RENAL COMPLEX CYST, LAST CT NOV 2018 MILD PERSISTENT ASTHMA Surgical History TURP x 2 Appendectomy Lithotripsy x 3 Family History Father , Stroke, cancer Mother : Dementia 1 daughter: schizophrenia, bipolar with disabilities. Brother: TBI with disabilities. Social History * Smoker: former Smoker Alcohol: rarely Drugs: denies A-FIB/CHADSVASC A-FIB History Current/History of A-Fib/PAF?: No Review of Systems Constitutional: Denies: Chills, Fever, Night Sweats Eyes: Denies: Pain, Vision change ENT: Denies: Head Aches, Ear Pain, Dysphagia Skin: Denies: Rash, Lesions, Breakdown Pulmonary: Denies: Dyspnea, Cough Cardiovascular: Denies: Chest Pain, Palpitations, Orthopnea, Paroxysmal Noc. Dyspnea, Lt Headedness Gastrointestinal: Denies: Nausea, Vomiting, Abdominal Pain, Diarrhea Genitourinary: Denies: Dysuria, Frequency, Incontinence, Retention Hematologic: Denies: Bruising, Bleeding Excessively Musculoskeletal: Reports: Neck Pain, Back Pain Neurological: Reports: Weakness (left upper ex and left lower ex), Numbness (left upper ex and lower extremity) Psych: Reports: Mood Normal Physical Examination General Exam: Positive: Alert, Cooperative, No Acute Distress Eye Exam: Positive: PERRLA, Conjunctiva & lids normal, EOMI; Negative: Sclera icteric ENT Exam: Positive: Atraumatic, Mucous membr. moist/pink, Pharynx Normal Neck Exam: Negative: JVD, thyromegaly Chest Exam: Positive: Clear to auscultation, Normal air movement Heart Exam: Positive: Rate Normal, Regular Rhythm, Normal S1, Normal S2; Negative: Murmurs, Rubs Telemetry: Positive: No significant arrhythmia Abdomen Exam: Positive: Normal bowel sounds, Soft; Negative: Tenderness, Hepatospenomegaly Extremity Exam: Negative: Clubbing, Cyanosis, Edema Neuro Exam: Positive: Normal Speech, Normal Tone, Other (power 4/5 on the left. 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 Patient complained off feeling unwell when he woke up on 11/08/20. He had numbness, aching , tingling and heaviness of his left lower extremity and left upper extremity. He felt like he has thick skin and he got novocaine. More on the outer aspect of the leg and the arm. He was having trouble raising his arm and leg. He had a bad night that day could not sleep due to the tingling, numbness so went to [facility] on 11/09/20 and was sent here. He denied any complaints of facial numbness or weakness or any trouble talking or swallowing. he is being admitted for evaluation of Stroke. He had CT head, CTA head and CTA neck at [facility]. Left upper and lower extremity weakness and numbness Stroke Vs Atypical migraine vs Cervical cord disease. will need to rule out cervical spine disease. Of note patient had a fall on the ice about a month ago on his back and hit his head and neck. continue ASA, Statin. telemetry MRI head and MRI cervical spine. will give ketorolac, metronidazole, benadryl. Hypertension Continue home meds Depression Bupropion, trazodone Chronic low back pain/ Sciatica/Lumber strain/ disc disease continue baclofen, norco, BPH/ urge incontinence oxybutinin. Plan / VTE VTE Prophylaxis Ordered?: Yes ALEYDA SHELTON MD Nov 10, 2020 11:12
[2020-11-10] MEDS: SIMVASTATIN 40 MG TAB PO SCH (12:53)
[2020-11-10] MEDS: ASPIRIN 81 MG ENTERIC TAB PO SCH (12:53)
[2020-11-10] MEDS: BACLOFEN 10 MG TAB PO PRN ×2 (12:54→23:13)
[2020-11-10] MEDS: ENOXAPARIN 40MG/0.4ML SYRINGE (J1650 PER 10MG) SC SCH (12:54)
[2020-11-10] MEDS: lisinopriL 40 MG TAB PO SCH (12:55)
[2020-11-10] MEDS: amLODIPine 5 MG TAB PO SCH (12:55)
[2020-11-10] MEDS: oxyBUTYnin *DITROPAN XL* 5 MG TABCR PO SCH (12:58)
[2020-11-10] MEDS: buPROPion **XL** TABLET 150MG (WELLBUTRIN XL) PO SCH (12:58)
[2020-11-10] MEDS ORDERED: ALBUTEROL 90 MCG/ACT 8GM HFA INHALER INH PRN (13:15)
[2020-11-10] MEDS ORDERED: NORCO, ANEXSIA 5/325MG TABLET (HYDROcodone/ACETAMINOPHEN) PO PRN ×3 (13:15→14:45)
[2020-11-10] MEDS ORDERED: KETOROLAC 30 MG/ML 1ML VIAL IV ONE (15:00)
[2020-11-10] MEDS ORDERED: METOCLOPRAMIDE INJ 10MG/2ML VIAL (J2765 PER 1) IV ONE (15:00)
[2020-11-10] MEDS ORDERED: diphenhydrAMINE 50MG/ML VIAL (J1200) IV ONE (15:00)
--- NOTE | 2020-11-10 15:30 | REPVR ---
PROCEDURE INFORMATION: Exam: MR Head Without Contrast Exam date and time: 11/10/2020 3:12 PM Age: 60 years old Clinical indication: Weakness, extremity; Left; Additional info: Left sided weakness TECHNIQUE: Imaging protocol: MR of the head without contrast. COMPARISON: MRI-Brain without Contrast 02/22/2017 2:48 PM FINDINGS: Brain: Normal. No acute infarct. No hemorrhage. No significant white matter disease. No edema. Cerebral ventricles: Normal. No ventriculomegaly. Bones/joints: Unremarkable. Paranasal sinuses: Normal as visualized. No acute sinusitis. Mastoid air cells: Normal as visualized. No mastoid effusion. Orbital cavity: Unremarkable. Soft tissues: Unremarkable. IMPRESSION: No acute findings. Electronically signed by: Lamberto Domingo On 11/10/2020 15:30:16 PM
--- NOTE | 2020-11-10 15:32 | REPVR ---
PROCEDURE INFORMATION: Exam: MR Cervical Spine Without Contrast Exam date and time: 11/10/2020 3:12 PM Age: 60 years old Clinical indication: Weakness; Additional info: Left sided weakness, fall on ice in dec with whip lash injur TECHNIQUE: Imaging protocol: Multiplanar magnetic resonance images of the cervical spine without contrast. COMPARISON: CT Spine,cervical w/o contrast 10/05/2020 6:36 PM FINDINGS: Vertebrae: Unremarkable. Spinal cord: Normal signal. No cord compression. C2-C3: No significant disc disease. No significant spinal stenosis. C3-C4: No significant disc disease. No significant spinal stenosis. C4-C5: There is mild ventral ridging which flattens the ventral thecal sac. C5-C6: No significant disc disease. No significant spinal stenosis. C6-C7: No significant disc disease. No significant spinal stenosis. C7-T1: No significant disc disease. No significant spinal stenosis. Soft tissues: Unremarkable. IMPRESSION: No post traumatic findings identified. Please refer to incidental findings in body of report. Electronically signed by: Lamberto Domingo On 11/10/2020 15:32:41 PM
[2020-11-10] MEDS: hydrOXYzine 10 MG TAB PO PRN (16:24)
[2020-11-10] MEDS: NORCO, ANEXSIA 5/325MG TABLET (HYDROcodone/ACETAMINOPHEN) PO PRN ×2 (16:26→21:06)
[2020-11-10 17:19] VITALS: BP 140/88
[2020-11-10 18:00] VITALS: BP 143/80
[2020-11-10] MEDS: SENOKOT S TAB PO SCH (20:45)
[2020-11-10 22:00] VITALS: BP 136/81
[2020-11-11] MEDS: NORCO, ANEXSIA 5/325MG TABLET (HYDROcodone/ACETAMINOPHEN) PO PRN ×3 (01:51→10:24)
[2020-11-11 06:00] VITALS: BP 131/86
[2020-11-11 06:42] LABS: BASO # 0.1 10^3/uL (0.0-0.2); BASO % 0.5 % (0.0-1.0); EOS # 0.2 10^3/uL (0.0-0.5); EOS % 2.2 % (0.0-3.0); HEMATOCRIT 36.4 % (42.0-52.0); HEMOGLOBIN 12.3 g/dl (13.5-17.5); LYMPH # 3.9 10^3/uL (1.5-5.0); LYMPH % 39.4 % (24.0-44.0); MEAN CORPUSCULAR HEMOGLOBIN 29.6 pg (27.0-33.0); MEAN CORPUSCULAR HGB CONC 33.8 g/dl (32.0-36.5); MEAN CORPUSCULAR VOLUME 87.5 fl (80.0-96.0); MONO % 10.2 % (0.0-5.0); NEUTROPHILS # 4.6 10^3/uL (1.5-8.5); NEUTROPHILS % 47.2 % (36.0-66.0); PLATELET COUNT, AUTOMATED 253 10^3/uL (150-450); RED BLOOD COUNT 4.16 10^6/uL (4.30-6.10); WHITE BLOOD COUNT 9.8 10^3/uL (4.0-10.0)
[2020-11-11 07:01] LABS: BLOOD UREA NITROGEN 17 MG/DL (7-18); CALCIUM LEVEL 8.8 MG/DL (8.5-10.1); CARBON DIOXIDE LEVEL 28 MEQ/L (21-32); CHLORIDE LEVEL 106 MEQ/L (98-107); CREATININE FOR GFR 1.17 MG/DL (0.70-1.30); GLOMERULAR FILTRATION RATE > 60.0 (>56); GLUCOSE, FASTING 109 MG/DL (70-100); POTASSIUM SERUM 3.5 MEQ/L (3.5-5.1); SODIUM LEVEL 141 MEQ/L (136-145)
[2020-11-11] MEDS: buPROPion **XL** TABLET 150MG (WELLBUTRIN XL) PO SCH (08:39)
[2020-11-11] MEDS: SIMVASTATIN 40 MG TAB PO SCH (08:39)
[2020-11-11] MEDS: SENOKOT S TAB PO SCH ×2 (08:39→08:45)
[2020-11-11 08:40] VITALS: BP 133/87
[2020-11-11] MEDS: lisinopriL 40 MG TAB PO SCH (08:40)
[2020-11-11] MEDS: amLODIPine 5 MG TAB PO SCH (08:40)
[2020-11-11] MEDS: oxyBUTYnin *DITROPAN XL* 5 MG TABCR PO SCH (08:40)
[2020-11-11] MEDS: ASPIRIN 81 MG ENTERIC TAB PO SCH (08:40)
[2020-11-11] MEDS: ENOXAPARIN 40MG/0.4ML SYRINGE (J1650 PER 10MG) SC SCH ×2 (08:41→08:45)
[2020-11-11] MEDS: hydrOXYzine 10 MG TAB PO PRN (10:24)
[2020-11-11] MEDS: BACLOFEN 10 MG TAB PO PRN (10:24)
--- NOTE | 2020-11-11 15:39 | DS.PDOC ---
Discharge Summary General Date of Admission Nov 10, 2020 at 11:13 Discharge Summary PROCEDURES PERFORMED DURING STAY: [None]. DISCHARGE DIAGNOSES: Left upper and lower extremity numbness and weakness? atypical migraine. Lumber radiculopathy/ sciatica SECONDARY DIAGNOSIS: HTN- ECHO 02/24 WITH MILD CONCENTRIC LVH, MOD , LAE, NUC STRESS 2016 NEGATIVE BPH DEPRESSION MIGRAINES KIDNEY STONES PREDIABETES 04/28 HEMOGLOBIN A1C 6.3 HYPERLIPIDEMIA LUMBAR AND CERVICAL SPONDYLOSIS/ Sciatica JAMES STABLE RIGHT RENAL COMPLEX CYST, LAST CT NOV 2018 MILD PERSISTENT ASTHMA COMPLICATIONS/CHIEF COMPLAINT: Left Sided Weakness. HOSPITAL COURSE: 60 year old male who is a [employer] was sent from [facility] to rule out stroke for MRI brain. Patient complained off feeling unwell when he woke up on 11/08/20. He had numbness, aching , tingling and heaviness of his left lower extremity and left upper extremity. He felt like he has thick skin and he got novocaine. More on the outer aspect of the leg and the arm. He was having trouble raising his arm and leg. He had a bad night that day could not sleep due to the tingling, numbness so went to [facility] on 11/09/20 and was sent here. He denied any complaints of facial numbness or weakness or any trouble talking or swallowing. he is being admitted for evaluation of Stro ke. He had CT head, CTA head and [place] neck [place] [facility]. Left upper and lower extremity weakness and numbness ? Atypical migraine will need to rule out cervical spine disease. Of note patient had a fall on the ice about a month ago on his back and hit his head and neck. continue ASA, Statin. telemetry no abnormality. MRI head and MRI cervical spine negative for any acute stroke or any cervical co rd disease. continue home pain meds PT and OT. Hypertension Continue home meds Depression Bupropion, trazodone Chronic low back pain/ Sciatica/Lumber strain/ disc disease continue baclofen, norco, BPH/ urge incontinence oxybutinin. DISCHARGE MEDICATIONS: Please see below. ALLERGIES: Please see below. PHYSICAL EXAMINATION ON DISCHARGE: VITAL SIGNS: Please see below. General Exam: Positive: Alert, Cooperative, No Acute Distress Eye Exam: Positive: PERRLA, Conjunctiva & lids normal, EOMI; Negative: Sclera icteric ENT Exam: Positive: Atraumatic, Mucous membr. moist/pink, Pharynx Normal Neck Exam: Negative: JVD, thyromegaly Chest Exam: Positive: Clear to auscultation, Normal air movement Heart Exam: Positive: Rate Normal, Regular Rhythm, Normal S1, Normal S2; Negative: Murmurs, Rubs Telemetry: Positive: No significant arrhythmia Abdomen Exam: Positive: Normal bowel sounds, Soft; Negative: Tenderness, Hepatosplenomegaly Extremity Exam: Negative: Clubbing, Cyanosis, Edema Neuro Exam: Positive: Normal Speech, Normal Tone, Other (power 4/5 on the left. ) LABORATORY DATA: Please see below. IMAGING: Cervical Spine MRI: COMPARISON: CT Spine,cervical w/o contrast 10/05/2020 6:36 PM FINDINGS: Vertebrae: Unremarkable. Spinal cord: Normal signal. No cord compression. C2-C3: No significant disc disease. No significant spinal stenosis. C3-C4: No significant disc disease. No significant spinal stenosis. C4-C5: There is mild ventral ridging which flattens the ventral thecal sac. C5-C6: No significant disc disease. No significant spinal stenosis. C6-C7: No significant disc disease. No significant spinal stenosis. C7-T1: No significant disc disease. No significant spinal stenosis. Soft tissues: Unremarkable. IMPRESSION: No post traumatic findings identified. Please refer to incidental findings in body of report. MRI of Brain: COMPARISON: MRI-Brain without Contrast 02/22/2017 2:48 PM FINDINGS: Brain: Normal. No acute infarct. No hemorrhage. No significant white matter disease. No edema. Cerebral ventricles: Normal. No ventriculomegaly. Bones/joints: Unremarkable. Paranasal sinuses: Normal as visualized. No acute sinusitis. Mastoid air cells: Normal as visualized. No mastoid effusion. Orbital cavity: Unremarkable. Soft tissues: Unremarkable. IMPRESSION: No acute findings. ACTIVITY: [As tolerated]. DIET: As tolerated DISPOSITION: 01 Home, Self-Care. DISCHARGE INSTRUCTIONS: PMD in 1 week Neurology In 2 weeks DISCHARGE CONDITION: [Stable]. TIME SPENT ON DISCHARGE: 35 minutes. Vital Signs/I&Os Vital Signs Date Time Temp Pulse Resp B/P (MAP) Pulse Ox O2 Delivery O2 Flow Rate FiO2 11/11/20 10:54 18 11/11/20 08:40 81 133/87 11/11/20 06:59 Room Air 11/11/20 06:00 97.0 98 I&O- Last 24 Hours up to 6 AM 11/11/20 07:00 Intake Total 1500 ml Output Total 400 ml Balance 1100 ml Laboratory Data Labs 24H Laboratory Tests 2 11/11/20 06:10: Immature Granulocyte % (Auto) 0.5, Neutrophils (%) (Auto) 47.2, Lymphocytes (%) (Auto) 39.4, Monocytes (%) (Auto) 10.2H, Eosinophils (%) (Auto) 2.2, Basophils (%) (Auto) 0.5, Neutrophils # (Auto) 4.6, Lymphocytes # (Auto) 3.9, Monocytes # (Auto) 1.0H, Eosinophils # (Auto) 0.2, Basophils # (Auto) 0.1, Nucleated Red Blood Cells % (auto) 0.0, Anion Gap 7L, Glomerular Filtration Rate > 60.0, Calcium Level 8.8 CBC/BMP Laboratory Tests 11/11/20 06:10 Discharge Medications Scheduled Amlodipine Besylate (Amlodipine Besylate) 5 Mg Tablet, 5 MG PO DAILY, (Reported) Aspirin (Aspirin EC) 81 Mg Tablet.dr, 81 MG PO DAILY, (Reported) Bupropion Hcl (Bupropion Xl) 150 Mg Tab.er.24h, 150 MG PO DAILY, (Reported) Lisinopril (Lisinopril) 40 Mg Tab, 40 MG PO DAILY, (Reported) Oxybutynin Chloride (Oxybutynin Chloride ER) 10 Mg Tab.er.24, 10 MG PO DAILY, (Reported) Simvastatin (Simvastatin) 40 Mg Tab, 40 MG PO DAILY, (Reported) Scheduled PRN Albuterol Sulfate (Albuterol Sulfate Hfa) 8.5 Gm Hfa.aer.ad, 1 PUFF INH PRN PRN for BRONCHOSPASM, (Reported) Baclofen (Baclofen) 20 Mg Tablet, 20 MG PO QID PRN for MUSCLE SPASMS, (Reported) Hydrocodone/Acetaminophen (Hydrocodone-Acetamin 10-325 mg) 1 Each Tablet, 1 TAB PO QID PRN for PAIN, (Reported) Hydroxyzine HCl (Hydroxyzine HCl) 10 Mg Tablet, 30 MG PO Q6H PRN for ANXIETY, (Reported) Trazodone HCl (Trazodone HCl) 100 Mg Tablet, 100 MG PO QHS PRN for SLEEP, (Reported) Allergies Coded Allergies: ibuprofen (Verified Adverse Reaction, Mild, fever, 09/10/19) ALEYDA SHELTON MD Nov 11, 2020 15:39
== END 2020-11-11 11:33 | disposition home or self-care (01) | DRG 54 ==
LOC: M ED 08:35 → M ED INP 11:13 → M MSPAV 12:21
PROVIDERS: ADMIT Internal Medicine Nephrology; ATTEND Internal Medicine Nephrology
DX: G43.909 Migraine, unspecified, not intractable, without status migrainosus (principal); N28.1 Cyst of kidney, acquired; I10 Essential (primary) hypertension; R53.1 Weakness; R20.0 Anesthesia of skin; N40.0 Benign prostatic hyperplasia without lower urinary tract symptoms; F32.9 Major depressive disorder, single episode, unspecified; E78.5 Hyperlipidemia, unspecified; G47.33 Obstructive sleep apnea (adult) (pediatric); M47.816 Spondylosis without myelopathy or radiculopathy, lumbar region; M47.812 Spondylosis without myelopathy or radiculopathy, cervical region; J45.30 Mild persistent asthma, uncomplicated; R73.03 Prediabetes; Z79.899 Other long term (current) drug therapy; Z79.82 Long term (current) use of aspirin; Z88.6 Allergy status to analgesic agent; Z87.891 Personal history of nicotine dependence

== ENCOUNTER → 2020-12-05 | Outpatient (CLI) | payer OTHER ==
[~2020-12-05] MED LIST changes: +ASPI81TA26 PO; +BACL1TAB9 PO; +BUPR150T4 PO; +HYDR-4517 PO; -LISI40TA PO; +LISI40TA4 PO; +METH-1164 PO; -METH1TAB40 PO; +TRAZ-257 PO
[2020-12-05 16:50] LABS: THYROID STIMULATING HORMONE 0.914 uIU/ML (0.358-3.740); TOTAL PROTEIN 8.1 GM/DL (6.4-8.2); VITAMIN B12 LEVEL 508 PG/ML
[2020-12-05 16:51] LABS: FOLATE 18.4 NG/ML
[2020-12-09 15:38] LABS: ALBUMIN 4.56 GM/DL (3.29-5.55); ALBUMIN % 56.3 % (55.8-66.1); ALPHA-1-GLOBULIN % 3.6 % (2.9-4.9); ALPHA-1-GLOBULINS 0.29 GM/DL (0.17-0.41); ALPHA-2-GLOBULINS 0.69 GM/DL (0.42-0.99); ALPHA-2-GLOBULINS % 8.5 % (7.1-11.8); BETA-1-GLOBULINS 0.46 GM/DL (0.28-0.60); BETA-1-GLOBULINS % 5.7 % (4.7-7.2); BETA-2-GLOBULINS 0.43 GM/DL (0.19-0.55); BETA-2-GLOBULINS % 5.3 % (3.2-6.5); GAMMA GLOBULIN % 20.6 % (11.1-18.8); GAMMA GLOBULINS 1.67 GM/DL (0.65-1.58)
== END ==
LOC: M LAB 14:46
PROVIDERS: ATTEND Psychiatry & Neurology Neurology
DX: R20.2 Paresthesia of skin (principal); R53.1 Weakness; E53.8 Deficiency of other specified B group vitamins; E11.9 Type 2 diabetes mellitus without complications

== ENCOUNTER → 2020-12-27 | Outpatient (CLI) | payer OTHER ==
[~2020-12-27] MED LIST changes: +ASPI-569 PO; -ASPI81TAEC PO; +BUPR150T12 PO; -BUPR150T4 PO
--- NOTE | 2020-12-28 20:10 | REP ---
INDICATION: COMPLEX RENAL CYST, US 1ST THEN LAB COMPARISON: 02/08/2018 TECHNIQUE: Real time pérez scale ultrasound examination using curved array transducer. FINDINGS: The bilateral kidneys are normal in reniform shape and echotexture without hydronephrosis, nephrolithiasis, renal mass or perinephric stranding. Right kidney measures 10.5 x 5.0 x 6.3 cm and again demonstrates 1.9 x 1.8 x 2.0 cm complex cyst with debris along the mid cortex, and 9 mm simple lower pole cyst. Findings are essentially unchanged from prior examination. Left kidney measures 11.0 x 5.1 x 6.6 cm without cyst. The bladder is unremarkable and bilateral ureteral jets are identified. IMPRESSION: 1. Stable right renal cysts. <Electronically signed by Isaac Grullon > 12/28/202006
== END ==
LOC: M RAD 13:55
PROVIDERS: ATTEND Nurse Practitioner Family
DX: N28.1 Cyst of kidney, acquired (principal); Z12.5 Encounter for screening for malignant neoplasm of prostate

== ENCOUNTER → 2021-01-17 | Outpatient (CLI) | payer OTHER | LOC: M LAB 10:01 | PROVIDERS: ATTEND Urology | DX: Z12.5 Encounter for screening for malignant neoplasm of prostate (principal) ==

== ENCOUNTER → 2021-02-11 | Outpatient (CLI) | payer OTHER ==
[2021-02-11 14:03] LABS: BLOOD UREA NITROGEN 25 MG/DL (7-18); CALCIUM LEVEL 9.9 MG/DL (8.5-10.1); CARBON DIOXIDE LEVEL 30 MEQ/L (21-32); CHLORIDE LEVEL 102 MEQ/L (98-107); CREATININE FOR GFR 1.25 MG/DL (0.70-1.30); GLOMERULAR FILTRATION RATE > 60.0 (>56); GLUCOSE, FASTING 101 MG/DL (70-100); NT-PRO BNP 30 PG/ML (<125); SODIUM LEVEL 137 MEQ/L (136-145)
== END ==
LOC: M LAB 12:17
PROVIDERS: ATTEND Physician Assistant
DX: R06.02 Shortness of breath (principal)

== ENCOUNTER → 2021-08-20 | Outpatient (CLI) | payer OTHER ==
[~2021-08-20] MED LIST changes: -CYMB60CA3 PO; +CYMB60CA4 PO
[2021-08-20 11:42] LABS: BASO # 0.1 10^3/uL (0.0-0.2); BASO % 1.1 % (0.0-1.0); EOS # 0.4 10^3/uL (0.0-0.5); EOS % 6.2 % (0.0-3.0); HEMATOCRIT 37.9 % (42.0-52.0); LYMPH # 3.2 10^3/uL (1.5-5.0); LYMPH % 46.4 % (24.0-44.0); MEAN CORPUSCULAR HEMOGLOBIN 29.9 pg (27.0-33.0); MEAN CORPUSCULAR HGB CONC 34.3 g/dl (32.0-36.5); MEAN CORPUSCULAR VOLUME 87.1 fl (80.0-96.0); MONO # 0.6 10^3/uL (0.0-0.8); MONO % 8.7 % (2.0-8.0); NEUTROPHILS # 2.6 10^3/uL (1.5-8.5); NEUTROPHILS % 37.5 % (36.0-66.0); PLATELET COUNT, AUTOMATED 285 10^3/uL (150-450); RED BLOOD COUNT 4.35 10^6/uL (4.30-6.10)
[2021-08-20 12:07] LABS: ALBUMIN 4.1 GM/DL (3.2-5.2); ALT/SGPT 34 U/L (12-78); BILIRUBIN,TOTAL 0.4 MG/DL (0.2-1.0); BLOOD UREA NITROGEN 22 MG/DL (7-18); CALCIUM LEVEL 9.3 MG/DL (8.8-10.2); CARBON DIOXIDE LEVEL 27 MEQ/L (21-32); CHLORIDE LEVEL 106 MEQ/L (98-107); CHOLESTEROL LEVEL 189 MG/DL (<200); CHOLESTEROL RISK RATIO 2.333 (<5); CREATININE FOR GFR 1.36 MG/DL (0.70-1.30); GLOMERULAR FILTRATION RATE > 60.0 (>49); GLUCOSE, FASTING 101 MG/DL (70-100); HDL CHOLESTEROL 81 MG/DL (>40); LDL CHOLESTEROL 95 MG/DL (<100); NON-HDL-C 108 MG/DL; POTASSIUM SERUM 4.3 MEQ/L (3.5-5.1); SODIUM LEVEL 138 MEQ/L (136-145); TOTAL PROTEIN 8.2 GM/DL (6.4-8.2); TRIGLYCERIDES LEVEL 65 MG/DL (<150)
[2021-08-20 12:12] LABS: HEMOGLOBIN A1c 5.7 %
== END ==
LOC: M LAB 11:03
PROVIDERS: ATTEND Student in an Organized Health Care Education/Training Program
DX: Z00.00 Encounter for general adult medical examination without abnormal findings (principal); R73.03 Prediabetes; I10 Essential (primary) hypertension; E78.5 Hyperlipidemia, unspecified

== ENCOUNTER → 2021-10-15 | Outpatient (REF) | LOC: M LABSMTC 13:19 | PROVIDERS: ATTEND Pediatrics | DX: Z11.52 Encounter for screening for COVID-19 (principal) ==

== ENCOUNTER → 2022-01-29 | Outpatient (CLI) | payer OTHER ==
[~2022-01-29] MED LIST changes: +BUPR-71 PO; -BUPR150T5 PO
== END ==
LOC: M PLAIMG 10:40
PROVIDERS: ATTEND Physician Assistant
DX: M54.50 Low back pain, unspecified (principal)

== ENCOUNTER → 2022-04-08 | Outpatient (CLI) | payer OTHER ==
[2022-04-08 15:47] LABS: BASO # 0.1 10^3/uL (0.0-0.2); EOS # 0.3 10^3/uL (0.0-0.5); EOS % 4.2 % (0.0-3.0); HEMATOCRIT 39.3 % (42.0-52.0); HEMOGLOBIN 13.6 g/dl (13.5-17.5); LYMPH # 2.8 10^3/uL (1.5-5.0); LYMPH % 38.7 % (24.0-44.0); MEAN CORPUSCULAR HEMOGLOBIN 30.6 pg (27.0-33.0); MEAN CORPUSCULAR HGB CONC 34.6 g/dl (32.0-36.5); MEAN CORPUSCULAR VOLUME 88.3 fl (80.0-96.0); MONO # 0.6 10^3/uL (0.0-0.8); MONO % 7.6 % (2.0-8.0); NEUTROPHILS # 3.5 10^3/uL (1.5-8.5); NEUTROPHILS % 48.4 % (36.0-66.0); PLATELET COUNT, AUTOMATED 284 10^3/uL (150-450); RED BLOOD COUNT 4.45 10^6/uL (4.30-6.10); WHITE BLOOD COUNT 7.3 10^3/uL (4.0-10.0)
[2022-04-08 16:20] LABS: FREE T4 0.91 NG/DL (0.76-1.46)
[2022-04-08 16:28] LABS: TOTAL 25(OH) VITAMIN D 14.3 NG/ML (30.0-100.0)
== END ==
LOC: M LAB 15:20
PROVIDERS: ATTEND Student in an Organized Health Care Education/Training Program
DX: R53.83 Other fatigue (principal); D64.9 Anemia, unspecified

== ENCOUNTER 2022-09-07 14:00 | Emergency (ER) | payer OTHER ==
[~2022-09-07] VITALS: Ht 177.8 cm; Wt 112.3 kg
[2022-09-07] MEDS ORDERED: ACETAMINOPHEN 325 MG TAB PO ONE (17:20)
[2022-09-07] MEDS ORDERED: NS 1,000 ML IV ONE (17:20)
[2022-09-07 17:50] LABS: BASO % 0.5 % (0.0-1.0); EOS % 0.5 % (0.0-3.0); HEMATOCRIT 37.7 % (42.0-52.0); HEMOGLOBIN 12.5 g/dl (13.5-17.5); LYMPH # 1.6 10^3/uL (1.5-5.0); LYMPH % 17.8 % (24.0-44.0); MEAN CORPUSCULAR HEMOGLOBIN 29.6 pg (27.0-33.0); MEAN CORPUSCULAR HGB CONC 33.2 g/dl (32.0-36.5); MEAN CORPUSCULAR VOLUME 89.1 fl (80.0-96.0); MONO # 1.1 10^3/uL (0.0-0.8); MONO % 12.8 % (2.0-8.0); NEUTROPHILS % 68.1 % (36.0-66.0); PLATELET COUNT, AUTOMATED 249 10^3/uL (150-450); RED BLOOD COUNT 4.23 10^6/uL (4.30-6.10); WHITE BLOOD COUNT 8.8 10^3/uL (4.0-10.0)
[2022-09-07] MEDS ORDERED: ONDANSETRON 4MG 2ML VIAL IV ONE (17:55)
[2022-09-07] MEDS ORDERED: MORPHINE 4 MG/ML 1ML VIAL IV ONE (17:55)
[2022-09-07 18:22] LABS: CHLORIDE LEVEL 99 MMOL/L (98-107); POTASSIUM SERUM 3.7 MMOL/L (3.5-5.1); SODIUM LEVEL 137 MMOL/L (136-145)
[2022-09-07 18:23] LABS: CARBON DIOXIDE LEVEL 25 MMOL/L (20-31)
[2022-09-07 18:29] LABS: ALKALINE PHOSPHATASE 57 U/L (46-116); BLOOD UREA NITROGEN 13 MG/DL (9-23); CALCIUM LEVEL 9.2 MG/DL (8.3-10.6); GLUCOSE, FASTING 100 MG/DL (74-106); LIPASE 25 U/L (12-53)
[2022-09-07 18:30] LABS: ALT/SGPT 34 U/L (7.0-40); AST/SGOT 32 U/L (<34); BILIRUBIN,DIRECT 0.2 MG/DL (<0.4); BILIRUBIN,TOTAL 0.5 MG/DL (0.3-1.2); CREATININE FOR GFR 1.27 MG/DL (0.70-1.30); GLOMERULAR FILTRATION RATE > 60.0 (>49); TOTAL PROTEIN 7.7 G/DL (5.7-8.2)
[2022-09-07 20:45] VITALS: BP 158/70
[2022-09-07] MEDS ORDERED: OSEL75CA PO (21:12)
[2022-09-07] MEDS ORDERED: OSELTAMIVIR PHOSPHATE 75 MG CAP (TAMIFLU) PO ONE (21:20)
== END 2022-09-07 20:49 | disposition home or self-care (01) ==
LOC: M ED 14:00
DX: J09.X2 Influenza due to identified novel influenza A virus with other respiratory manifestations (principal); I10 Essential (primary) hypertension; F41.9 Anxiety disorder, unspecified; F32.A Depression, unspecified; Z87.891 Personal history of nicotine dependence; Z88.6 Allergy status to analgesic agent; Z79.51 Long term (current) use of inhaled steroids; Z79.82 Long term (current) use of aspirin; Z79.811 Long term (current) use of aromatase inhibitors; Z79.899 Other long term (current) drug therapy
CPT/HCPCS: 71046; 80048; 80076; 83605; 83690; 85025; 87040; 87486; 87581; 87633; 87798; 96361; 96374; 96375; 99284; J2270; J2405

== ENCOUNTER 2022-09-16 22:43 | Emergency (ER) | payer OTHER ==
[~2022-09-16] VITALS: Ht 177.8 cm; Wt 111.4 kg
[2022-09-16 22:43] VITALS: BP 140/62
[~2022-09-16 22:43] MED LIST changes: +OSEL75CA PO
[2022-09-16 23:33] LABS: BASO # 0.1 10^3/uL (0.0-0.2); BASO % 0.7 % (0.0-1.0); EOS # 0.3 10^3/uL (0.0-0.5); EOS % 4.8 % (0.0-3.0); HEMATOCRIT 33.9 % (42.0-52.0); HEMOGLOBIN 11.4 g/dl (13.5-17.5); LYMPH % 42.1 % (24.0-44.0); MEAN CORPUSCULAR HEMOGLOBIN 29.2 pg (27.0-33.0); MEAN CORPUSCULAR HGB CONC 33.6 g/dl (32.0-36.5); MEAN CORPUSCULAR VOLUME 86.9 fl (80.0-96.0); MONO # 0.9 10^3/uL (0.0-0.8); MONO % 12.5 % (2.0-8.0); NEUTROPHILS # 2.8 10^3/uL (1.5-8.5); NEUTROPHILS % 39.5 % (36.0-66.0); PLATELET COUNT, AUTOMATED 426 10^3/uL (150-450); WHITE BLOOD COUNT 7.1 10^3/uL (4.0-10.0)
[2022-09-17 00:28] LABS: ALBUMIN 3.5 G/DL (3.2-5.2); ALKALINE PHOSPHATASE 65 U/L (46-116); ALT/SGPT 40 U/L (7.0-40); AST/SGOT 29 U/L (<34); BILIRUBIN,TOTAL 0.2 MG/DL (0.3-1.2); BLOOD UREA NITROGEN 21 MG/DL (9-23); CALCIUM LEVEL 9.5 MG/DL (8.3-10.6); CARBON DIOXIDE LEVEL 25 MMOL/L (20-31); CHLORIDE LEVEL 101 MMOL/L (98-107); CREATININE FOR GFR 1.33 MG/DL (0.70-1.30); GLOMERULAR FILTRATION RATE > 60.0 (>49); GLUCOSE, FASTING 100 MG/DL (74-106); POTASSIUM SERUM 4.7 MMOL/L (3.5-5.1); SODIUM LEVEL 137 MMOL/L (136-145); TOTAL PROTEIN 7.7 G/DL (5.7-8.2)
[2022-09-17 00:30] LABS: CPK CREATINE PHOSPHOKINASE 388 U/L (46-171); MB/CK RELATIVE INDEX 0.25 (< OR =4)
[2022-09-17 02:18] LABS: CK-MB VALUE MASS 1.2 NG/ML (<3.6)
[2022-09-17 02:20] LABS: CPK CREATINE PHOSPHOKINASE 378 U/L (46-171); MB/CK RELATIVE INDEX 0.31 (< OR =4)
[2022-09-17] MEDS ORDERED: COMBIVENT RESPIMAT 100-20MCG INHALER 4GM INH ONE (04:10)
[2022-09-17] MEDS ORDERED: COMBAER6 INH (05:37)
[2022-09-17] MEDS ORDERED: GUAI1SOL2 PO (05:37)
== END 2022-09-17 06:00 | disposition home or self-care (01) ==
LOC: M ED 22:43
DX: J98.01 Acute bronchospasm (principal); I10 Essential (primary) hypertension; E78.5 Hyperlipidemia, unspecified; F32.A Depression, unspecified; F10.10 Alcohol abuse, uncomplicated; Z88.6 Allergy status to analgesic agent; Z79.51 Long term (current) use of inhaled steroids; Z79.811 Long term (current) use of aromatase inhibitors; Z79.899 Other long term (current) drug therapy

== ENCOUNTER → 2023-01-01 | Outpatient (CLI) | payer OTHER ==
[~2023-01-01] MED LIST changes: +COMBAER6 INH; +GUAI1SOL2 PO
[2023-01-01 19:05] LABS: BASO # 0.1 10^3/uL (0.0-0.2); EOS # 0.4 10^3/uL (0.0-0.5); EOS % 5.7 % (0.0-3.0); HEMATOCRIT 36.3 % (42.0-52.0); HEMOGLOBIN 12.1 g/dl (13.5-17.5); LYMPH # 3.7 10^3/uL (1.5-5.0); MEAN CORPUSCULAR HEMOGLOBIN 28.8 pg (27.0-33.0); MEAN CORPUSCULAR HGB CONC 33.3 g/dl (32.0-36.5); MEAN CORPUSCULAR VOLUME 86.4 fl (80.0-96.0); MONO # 0.7 10^3/uL (0.0-0.8); MONO % 10.3 % (2.0-8.0); NEUTROPHILS # 2.3 10^3/uL (1.5-8.5); NEUTROPHILS % 31.9 % (36.0-66.0); PLATELET COUNT, AUTOMATED 313 10^3/uL (150-450); WHITE BLOOD COUNT 7.2 10^3/uL (4.0-10.0)
[2023-01-01 19:14] LABS: HEMOGLOBIN A1c 5.4 % (4.0-6.0)
[2023-01-01 19:28] LABS: IRON (FE) 39 UG/DL (65-175); PERCENT SATURATION 9.7 % (19.7-50.0); TOTAL IRON BINDING CAPACITY 401 UG/DL (250-425)
[2023-01-01 19:29] LABS: ALKALINE PHOSPHATASE 69 U/L (46-116); ALT/SGPT 22 U/L (7.0-40); AST/SGOT 22 U/L (<34); BILIRUBIN,TOTAL 0.3 MG/DL (0.3-1.2); BLOOD UREA NITROGEN 21 MG/DL (9-23); CALCIUM LEVEL 9.2 MG/DL (8.3-10.6); CARBON DIOXIDE LEVEL 27 MMOL/L (20-31); CHLORIDE LEVEL 104 MMOL/L (98-107); CHOLESTEROL LEVEL 178 MG/DL (<200); CREATININE FOR GFR 1.35 MG/DL (0.70-1.30); GLOMERULAR FILTRATION RATE > 60.0 (>49); GLUCOSE, FASTING 72 MG/DL (74-106); HDL CHOLESTEROL 65.7 MG/DL (>40); LDL CHOLESTEROL 82.3 MG/DL (<100); NON-HDL-C 112.3 MG/DL; POTASSIUM SERUM 4.1 MMOL/L (3.5-5.1); SODIUM LEVEL 139 MMOL/L (136-145); TOTAL PROTEIN 7.5 G/DL (5.7-8.2); TRIGLYCERIDES LEVEL 150 MG/DL (<150)
[2023-01-01 19:32] LABS: THYROID STIMULATING HORMONE 2.454 uIU/ML (0.55-4.78); TOTAL 25(OH) VITAMIN D 13.5 NG/ML (20.0-100.0)
[2023-01-01 19:33] LABS: FREE T4 0.93 NG/DL (0.89-1.76)
== END ==
LOC: M LAB 18:16
PROVIDERS: ATTEND Student in an Organized Health Care Education/Training Program
DX: R53.83 Other fatigue (principal)

== ENCOUNTER 2023-03-21 21:05 | Emergency (ER) | payer OTHER ==
[~2023-03-21] VITALS: Ht 177.8 cm; Wt 106.6 kg
[2023-03-21 21:05] VITALS: BP 138/75; TEMP 98.6; O2SAT 99
[~2023-03-21 21:05] MED LIST changes: +FLUT50SP17 INH; -FLUTISP INH
[2023-03-22] MEDS ORDERED: NEOSPORIN OINT 0.9 GM PKT TOP ONE (02:00)
[2023-03-22] MEDS ORDERED: BOOSTRIX VACCINE (TETANUS/DIPHTH/ACEL. PERTUSSIS) 0.5ML SYR IM ONE (02:00)
== END 2023-03-22 02:41 | disposition home or self-care (01) ==
LOC: M ED 21:05
DX: S61.210A Laceration without foreign body of right index finger without damage to nail, initial encounter (principal); W26.8XXA Contact with other sharp object(s), not elsewhere classified, initial encounter; I10 Essential (primary) hypertension; G47.33 Obstructive sleep apnea (adult) (pediatric); D64.9 Anemia, unspecified; F32.A Depression, unspecified; F10.10 Alcohol abuse, uncomplicated; F41.9 Anxiety disorder, unspecified; G43.909 Migraine, unspecified, not intractable, without status migrainosus; E78.5 Hyperlipidemia, unspecified; Y92.009 Unspecified place in unspecified non-institutional (private) residence as the place of occurrence of the external cause; Z86.79 Personal history of other diseases of the circulatory system; Z79.52 Long term (current) use of systemic steroids; Z79.811 Long term (current) use of aromatase inhibitors; Z79.899 Other long term (current) drug therapy; Z23 Encounter for immunization

== ENCOUNTER → 2023-05-06 | Outpatient (CLI) | payer OTHER | LOC: M RAD 16:24 | PROVIDERS: ATTEND Student in an Organized Health Care Education/Training Program | DX: M25.562 Pain in left knee (principal); N28.1 Cyst of kidney, acquired ==

== ENCOUNTER → 2023-05-07 | Outpatient (CLI) | payer OTHER ==
[2023-05-07 12:27] LABS: BASO # 0.1 10^3/uL (0.0-0.2); BASO % 0.8 % (0.0-1.0); EOS # 0.4 10^3/uL (0.0-0.5); EOS % 6.4 % (0.0-3.0); HEMOGLOBIN 12.2 g/dl (13.5-17.5); LYMPH # 2.7 10^3/uL (1.5-5.0); LYMPH % 43.7 % (24.0-44.0); MEAN CORPUSCULAR HEMOGLOBIN 29.7 pg (27.0-33.0); MEAN CORPUSCULAR HGB CONC 34.9 g/dl (32.0-36.5); MEAN CORPUSCULAR VOLUME 85.2 fl (80.0-96.0); MONO # 0.5 10^3/uL (0.0-0.8); MONO % 7.8 % (2.0-8.0); NEUTROPHILS # 2.5 10^3/uL (1.5-8.5); NEUTROPHILS % 41.1 % (36.0-66.0); PLATELET COUNT, AUTOMATED 282 10^3/uL (150-450); RED BLOOD COUNT 4.11 10^6/uL (4.30-6.10); WHITE BLOOD COUNT 6.1 10^3/uL (4.0-10.0)
[2023-05-07 12:53] LABS: IRON (FE) 81 UG/DL (65-175); PERCENT SATURATION 21.2 % (19.7-50.0); TOTAL IRON BINDING CAPACITY 382 UG/DL (250-425)
[2023-05-07 12:54] LABS: ALBUMIN 4.2 G/DL (3.2-5.2); ALKALINE PHOSPHATASE 62 U/L (46-116); ALT/SGPT 26 U/L (7.0-40); AST/SGOT 15 U/L (<34); BILIRUBIN,TOTAL 0.6 MG/DL (0.3-1.2); BLOOD UREA NITROGEN 16 MG/DL (9-23); CALCIUM LEVEL 9.4 MG/DL (8.3-10.6); CARBON DIOXIDE LEVEL 28 MMOL/L (20-31); CHLORIDE LEVEL 106 MMOL/L (98-107); CREATININE FOR GFR 1.05 MG/DL (0.70-1.30); GLOMERULAR FILTRATION RATE > 60.0 (>49); GLUCOSE, FASTING 100 MG/DL (74-106); POTASSIUM SERUM 3.8 MMOL/L (3.5-5.1); SODIUM LEVEL 141 MMOL/L (136-145); TOTAL PROTEIN 7.4 G/DL (5.7-8.2)
[2023-05-07 12:56] LABS: FREE T4 1.06 NG/DL (0.89-1.76); THYROID STIMULATING HORMONE 0.852 uIU/ML (0.55-4.78)
== END ==
LOC: M LAB 11:51
PROVIDERS: ATTEND Student in an Organized Health Care Education/Training Program
DX: R63.4 Abnormal weight loss (principal)

== ENCOUNTER → 2023-05-19 | Outpatient (CLI) | payer OTHER | LOC: M RAD 15:19 | PROVIDERS: ATTEND Student in an Organized Health Care Education/Training Program | DX: N28.1 Cyst of kidney, acquired (principal) ==

== ENCOUNTER 2023-06-26 04:14 | Emergency (ER) | payer OTHER ==
[~2023-06-26] VITALS: Ht 177.8 cm; Wt 109.1 kg
[2023-06-26] MEDS ORDERED: NS 1,000 ML IV ONE (05:30)
[2023-06-26 05:49] LABS: BASO % 0.4 % (0.0-1.0); EOS # 0.2 10^3/uL (0.0-0.5); HEMOGLOBIN 12.5 g/dl (13.5-17.5); LYMPH # 1.3 10^3/uL (1.5-5.0); LYMPH % 17.9 % (24.0-44.0); MEAN CORPUSCULAR HEMOGLOBIN 29.7 pg (27.0-33.0); MEAN CORPUSCULAR HGB CONC 34.7 g/dl (32.0-36.5); MEAN CORPUSCULAR VOLUME 85.5 fl (80.0-96.0); MONO # 0.7 10^3/uL (0.0-0.8); MONO % 9.3 % (2.0-8.0); NEUTROPHILS # 4.8 10^3/uL (1.5-8.5); PLATELET COUNT, AUTOMATED 252 10^3/uL (150-450); RED BLOOD COUNT 4.21 10^6/uL (4.30-6.10)
[2023-06-26 06:13] LABS: LIPASE 27 U/L (12-53)
[2023-06-26 06:15] LABS: ALBUMIN 3.8 G/DL (3.2-5.2); ALKALINE PHOSPHATASE 64 U/L (46-116); ALT/SGPT 27 U/L (7.0-40); AST/SGOT 27 U/L (<34); BILIRUBIN,TOTAL 0.8 MG/DL (0.3-1.2); BLOOD UREA NITROGEN 14 MG/DL (9-23); CARBON DIOXIDE LEVEL 26 MMOL/L (20-31); CHLORIDE LEVEL 105 MMOL/L (98-107); CREATININE FOR GFR 1.05 MG/DL (0.70-1.30); GLOMERULAR FILTRATION RATE > 60.0 (>49); GLUCOSE, FASTING 113 MG/DL (74-106); POTASSIUM SERUM 3.7 MMOL/L (3.5-5.1); SODIUM LEVEL 140 MMOL/L (136-145); TOTAL PROTEIN 7.3 G/DL (5.7-8.2)
[2023-06-26 06:22] LABS: PROCALCITONIN 0.07 ng/ml
[2023-06-26] MEDS ORDERED: ACETAMINOPH W/CODEINE #3 TAB UD PO ONE (07:20)
[2023-06-26 08:32] VITALS: BP 144/78; TEMP 98.8; O2SAT 98
== END 2023-06-26 08:30 | disposition home or self-care (01) ==
LOC: M ED 04:14
DX: J02.9 Acute pharyngitis, unspecified (principal); I10 Essential (primary) hypertension; F10.10 Alcohol abuse, uncomplicated; Z86.79 Personal history of other diseases of the circulatory system; Z88.6 Allergy status to analgesic agent; Z79.899 Other long term (current) drug therapy; Z79.52 Long term (current) use of systemic steroids; Z79.811 Long term (current) use of aromatase inhibitors

== ENCOUNTER → 2023-09-29 | Outpatient (CLI) | payer OTHER ==
[~2023-09-29] MED LIST changes: -FLUT50SP17 INH; +FLUTISP INH
[2023-09-29 14:33] LABS: BASO # 0.1 10^3/uL (0.0-0.2); EOS # 0.5 10^3/uL (0.0-0.5); EOS % 6.6 % (0.0-3.0); HEMATOCRIT 37.2 % (42.0-52.0); HEMOGLOBIN 12.6 g/dl (13.5-17.5); LYMPH # 2.9 10^3/uL (1.5-5.0); LYMPH % 40.6 % (24.0-44.0); MEAN CORPUSCULAR HEMOGLOBIN 29.5 pg (27.0-33.0); MEAN CORPUSCULAR HGB CONC 33.9 g/dl (32.0-36.5); MEAN CORPUSCULAR VOLUME 87.1 fl (80.0-96.0); MONO # 0.6 10^3/uL (0.0-0.8); MONO % 8.4 % (2.0-8.0); NEUTROPHILS # 3.1 10^3/uL (1.5-8.5); NEUTROPHILS % 43.1 % (36.0-66.0); PLATELET COUNT, AUTOMATED 309 10^3/uL (150-450); RED BLOOD COUNT 4.27 10^6/uL (4.30-6.10); WHITE BLOOD COUNT 7.2 10^3/uL (4.0-10.0)
[2023-09-29 15:09] LABS: PERCENT SATURATION 11.3 % (19.7-50.0)
[2023-09-29 15:10] LABS: FERRITIN 12.2 NG/ML (10.5-307.3)
[2023-09-29 15:11] LABS: FOLATE 15.2 NG/ML (>5.4); THYROID STIMULATING HORMONE 1.348 uIU/ML (0.55-4.78); TOTAL 25(OH) VITAMIN D 23.8 NG/ML (20.0-100.0)
[2023-09-29 15:12] LABS: FREE T4 0.92 NG/DL (0.89-1.76)
[2023-09-29 15:13] LABS: HEMOGLOBIN A1c 5.4 % (4.0-6.0)
== END ==
LOC: M LAB 12:29
PROVIDERS: ATTEND Family Medicine
DX: R53.83 Other fatigue (principal); D64.9 Anemia, unspecified

== ENCOUNTER → 2024-01-18 | Outpatient (CLI) | payer OTHER ==
[~2024-01-18] MED LIST changes: +ISOVUE-370 76% 100ML VIAL As Ordered ONE
== END ==
LOC: M RAD 16:37
PROVIDERS: ATTEND Urology
DX: D17.9 Benign lipomatous neoplasm, unspecified (principal); N28.1 Cyst of kidney, acquired
CPT/HCPCS: 74160; Q9967

== ENCOUNTER → 2024-05-02 | Outpatient (REF) | payer OTHER ==
[~2024-05-02] MED LIST changes: +BUPR-597 PO; -BUPR300T92 PO; -ISOVUE-370 76% 100ML VIAL As Ordered ONE
== END ==
LOC: M SFHCLERA 10:46
PROVIDERS: ATTEND Family Medicine
DX: R50.9 Fever, unspecified (principal); R52 Pain, unspecified

== ENCOUNTER → 2024-05-23 | Outpatient (REF) | payer OTHER | LOC: M SFHCLERA 16:49 | PROVIDERS: ATTEND Family Medicine | DX: R50.9 Fever, unspecified (principal); R52 Pain, unspecified; D50.9 Iron deficiency anemia, unspecified; R73.03 Prediabetes ==

== ENCOUNTER → 2024-05-23 | Outpatient (CLI) | payer OTHER ==
[2024-05-23 17:29] LABS: BASO # 0.1 10^3/uL (0.0-0.2); BASO % 0.8 % (0.0-1.0); EOS # 0.5 10^3/uL (0.0-0.5); EOS % 6.8 % (0.0-3.0); HEMATOCRIT 35.2 % (42.0-52.0); HEMOGLOBIN 12.1 g/dl (13.5-17.5); LYMPH # 2.5 10^3/uL (1.5-5.0); LYMPH % 37.2 % (24.0-44.0); MEAN CORPUSCULAR HEMOGLOBIN 29.9 pg (27.0-33.0); MEAN CORPUSCULAR HGB CONC 34.4 g/dl (32.0-36.5); MEAN CORPUSCULAR VOLUME 86.9 fl (80.0-96.0); MONO # 0.7 10^3/uL (0.0-0.8); MONO % 10.1 % (2.0-8.0); NEUTROPHILS % 44.9 % (36.0-66.0); PLATELET COUNT, AUTOMATED 245 10^3/uL (150-450); RED BLOOD COUNT 4.05 10^6/uL (4.30-6.10); WHITE BLOOD COUNT 6.6 10^3/uL (4.0-10.0)
[2024-05-23 17:32] LABS: ALBUMIN 3.9 G/DL (3.2-5.2); ALKALINE PHOSPHATASE 64 U/L (46-116); ALT/SGPT 28 U/L (7.0-40); AST/SGOT 27 U/L (<34); BILIRUBIN,TOTAL 0.4 MG/DL (0.3-1.2); BLOOD UREA NITROGEN 15 MG/DL (9-23); CALCIUM LEVEL 9.3 MG/DL (8.3-10.6); CARBON DIOXIDE LEVEL 33 MMOL/L (20-31); CHLORIDE LEVEL 104 MMOL/L (98-107); CREATININE FOR GFR 1.21 MG/DL (0.70-1.30); GLOMERULAR FILTRATION RATE > 60.0 (>49); GLUCOSE, FASTING 107 MG/DL (74-106); IRON (FE) 48 UG/DL (65-175); PERCENT SATURATION 13.6 % (19.7-50.0); POTASSIUM SERUM 3.8 MMOL/L (3.5-5.1); SODIUM LEVEL 136 MMOL/L (136-145); TOTAL IRON BINDING CAPACITY 352 UG/DL (250-425); TOTAL PROTEIN 7.2 G/DL (5.7-8.2)
[2024-05-23 17:47] LABS: HEMOGLOBIN A1c 5.5 % (4.0-6.0)
== END ==
LOC: M LAB 16:30
PROVIDERS: ATTEND Family Medicine
DX: R50.9 Fever, unspecified (principal); R52 Pain, unspecified; D50.9 Iron deficiency anemia, unspecified; R73.03 Prediabetes

== ENCOUNTER → 2024-11-12 | Outpatient (CLI) | payer OTHER ==
[~2024-11-12] MED LIST changes: +GABA-1172 PO; +GABA-1490 PO; -GABA-282 PO; -GABA600T4 PO
== END ==
LOC: M RAD 13:50 → M PLALAB 13:50
PROVIDERS: ATTEND Registered Nurse
DX: J06.9 Acute upper respiratory infection, unspecified (principal)

== ENCOUNTER → 2024-11-26 | Outpatient (CLI) | payer OTHER ==
[2024-11-26 15:00] LABS: BASO # 0.1 10^3/uL (0.0-0.2); BASO % 0.9 % (0.0-1.0); EOS # 0.4 10^3/uL (0.0-0.5); EOS % 5.6 % (0.0-3.0); HEMATOCRIT 33.9 % (42.0-52.0); HEMOGLOBIN 11.9 g/dl (13.5-17.5); LYMPH # 3.1 10^3/uL (1.5-5.0); LYMPH % 43.9 % (24.0-44.0); MEAN CORPUSCULAR HEMOGLOBIN 30.5 pg (27.0-33.0); MEAN CORPUSCULAR HGB CONC 35.1 g/dl (32.0-36.5); MEAN CORPUSCULAR VOLUME 86.9 fl (80.0-96.0); MONO # 0.7 10^3/uL (0.0-0.8); MONO % 9.7 % (2.0-8.0); NEUTROPHILS # 2.8 10^3/uL (1.5-8.5); NEUTROPHILS % 39.8 % (36.0-66.0); PLATELET COUNT, AUTOMATED 252 10^3/uL (150-450)
[2024-11-26 15:29] LABS: ALBUMIN 3.9 G/DL (3.2-5.2); ALKALINE PHOSPHATASE 60 U/L (40-129); ALT/SGPT 27 U/L (7.0-40); AST/SGOT 21 U/L (<34); BILIRUBIN,TOTAL 0.5 MG/DL (0.3-1.2); BLOOD UREA NITROGEN 18 MG/DL (9-23); CALCIUM LEVEL 9.2 MG/DL (8.3-10.6); CARBON DIOXIDE LEVEL 24 MMOL/L (20-31); CHLORIDE LEVEL 105 MMOL/L (98-107); CHOLESTEROL LEVEL 208 MG/DL (<200); CHOLESTEROL RISK RATIO 2.28 (<5); CREATININE FOR GFR 1.22 MG/DL (0.70-1.30); GLOMERULAR FILTRATION RATE > 60.0 (>49); GLUCOSE, FASTING 90 MG/DL (74-106); LDL CHOLESTEROL 95.2 MG/DL (<100); MAGNESIUM LEVEL 1.7 MG/DL (1.8-2.4); POTASSIUM SERUM 3.7 MMOL/L (3.5-5.1); SODIUM LEVEL 140 MMOL/L (136-145); TOTAL PROTEIN 7.7 G/DL (5.7-8.2); TRIGLYCERIDES LEVEL 109 MG/DL (<150)
== END ==
LOC: M LAB 14:07
PROVIDERS: ATTEND Registered Nurse
DX: I11.9 Hypertensive heart disease without heart failure (principal); E78.2 Mixed hyperlipidemia

== ENCOUNTER → 2024-12-14 | Outpatient (CLI) | payer OTHER | LOC: M CARPUL 16:31 | PROVIDERS: ATTEND Registered Nurse | DX: R07.9 Chest pain, unspecified (principal); R94.39 Abnormal result of other cardiovascular function study ==

== ENCOUNTER → 2025-02-06 | Outpatient (CLI) | payer OTHER ==
[~2025-02-06] MED LIST changes: -BUPR-597 PO; +BUPR-766 PO
== END ==
LOC: M PLAIMG 08:23
PROVIDERS: ATTEND Registered Nurse
DX: R06.02 Shortness of breath (principal)

== ENCOUNTER → 2025-02-28 | Outpatient (REF) | payer OTHER | LOC: M SFHCLERA 15:00 | PROVIDERS: ATTEND Internal Medicine | DX: Z53.9 Procedure and treatment not carried out, unspecified reason (principal) ==

== ENCOUNTER → 2025-04-24 | Outpatient (CLI) | payer OTHER ==
[~2025-04-24] MED LIST changes: +LISI40TA10 PO; -LISI40TA4 PO
[2025-04-24 18:50] LABS: CALCIUM LEVEL 9.5 MG/DL (8.3-10.6); CARBON DIOXIDE LEVEL 27.0 MMOL/L (20-31); CHLORIDE LEVEL 104.0 MMOL/L (98-107); CREATININE FOR GFR 1.17 MG/DL (0.70-1.30); GLOMERULAR FILTRATION RATE 70.1 (>49); POTASSIUM SERUM 3.6 MMOL/L (3.5-5.1); SODIUM LEVEL 143.0 MMOL/L (136-145)
== END ==
LOC: M LAB 17:47
PROVIDERS: ATTEND Urology
DX: N28.1 Cyst of kidney, acquired (principal)

== ENCOUNTER 2025-04-30 02:17 | Emergency (ER) | payer OTHER ==
[~2025-04-30] VITALS: Ht 177.8 cm; Wt 109.3 kg
[~2025-04-30 02:17] MED LIST changes: -ISOVUE-370 76% 100 ML VIAL ONE; -RIME75TA PO
[2025-04-30 04:19] LABS: PLATELET COUNT, AUTOMATED 254 10^3/uL (150-450)
[2025-04-30 04:51] LABS: CALCIUM LEVEL 9.4 MG/DL (8.3-10.6); CARBON DIOXIDE LEVEL 26.0 MMOL/L (20-31); CHLORIDE LEVEL 105.0 MMOL/L (98-107); CREATININE FOR GFR 1.1 MG/DL (0.70-1.30); GLOMERULAR FILTRATION RATE 75.4 (>49); MAGNESIUM LEVEL 1.8 MG/DL (1.8-2.4); POTASSIUM SERUM 3.4 MMOL/L (3.5-5.1); SODIUM LEVEL 143.0 MMOL/L (136-145)
[2025-04-30] MEDS: NS (Normal Saline) 0.9% 1,000 ML IV ONE (05:25)
[2025-04-30] MEDS: ACETAMINOPHEN *IV* 1,000 MG in IV 1 EA IV ONE (05:26)
[2025-04-30] MEDS: MAG SULF 1GM/100ML (MAG RUN) 1 GM in IV 1 EA IV ONE (05:29)
[2025-04-30] MEDS: dexAMETHasone 4 MG/ML 1 ML VIAL IV ONE (05:31)
[2025-04-30] MEDS ORDERED: RIME75TA PO (07:48)
[2025-04-30 07:55] VITALS: BP 146/70; TEMP 97.4; O2SAT 98
== END 2025-04-30 07:58 | disposition home or self-care (01) ==
LOC: M ED 02:17
DX: G43.909 Migraine, unspecified, not intractable, without status migrainosus (principal); I48.91 Unspecified atrial fibrillation; I10 Essential (primary) hypertension; E78.5 Hyperlipidemia, unspecified; G47.33 Obstructive sleep apnea (adult) (pediatric); F32.A Depression, unspecified; Z88.6 Allergy status to analgesic agent; Z79.899 Other long term (current) drug therapy
CPT/HCPCS: 70450; 80048; 83735; 85027; 96365; 96368; 96375; 99284; J0131; J1100; J2765; J3475

== ENCOUNTER → 2025-04-30 | Outpatient (CLI) | payer OTHER ==
[~2025-04-30] MED LIST changes: +ISOVUE-370 76% 100 ML VIAL ONE; +RIME75TA PO
== END ==
LOC: M PLAIMG 12:44
PROVIDERS: ATTEND Urology
DX: N28.1 Cyst of kidney, acquired (principal); D30.01 Benign neoplasm of right kidney
CPT/HCPCS: 74170; Q9967

== ENCOUNTER 2025-09-19 09:10 | Day surgery (SDC) | payer OTHER ==
[~2025-09-19] VITALS: Ht 177.8 cm; Wt 108.9 kg
[~2025-09-19 09:10] MED LIST changes: +LIDOCAINE 2% 100 MG/5 ML SDV (FOR ANES.) As Ordered ONE; +RIME75TA PO
[2025-09-19 11:20] VITALS: BP 154/87; TEMP 97.6; O2SAT 98
== END 2025-09-19 11:29 | disposition home or self-care (01) ==
LOC: M OPP 09:10
PROVIDERS: ATTEND Surgery
DX: K63.5 Polyp of colon (principal); K57.30 Diverticulosis of large intestine without perforation or abscess without bleeding; K64.1 Second degree hemorrhoids; Z86.0100 Personal history of colon polyps, unspecified; G47.30 Sleep apnea, unspecified; Z88.6 Allergy status to analgesic agent; Z79.82 Long term (current) use of aspirin; Z79.891 Long term (current) use of opiate analgesic; Z79.899 Other long term (current) drug therapy